=== PATIENT | male | born 1975 | race Caucasian/White ===

== ENCOUNTER 2016-09-17 16:06 | Observation (INO) | payer OTHER ==
[~2016-09-17] VITALS: Ht 180.3 cm; Wt 108.8 kg
[~2016-09-17 16:06] MED LIST: INSUINJ14 SC; INSUINJ4 SC; LPT40 PO; OXYC-609 PO
[2016-09-17] MEDS ORDERED: NITROGLYCERIN OINT 2% 1GM PACKET EXT SCH (16:45)
[2016-09-17 16:47] LABS: BASO % 0.4 %; BASO ABS # 0.03 K/uL (0-0.2); COMPLETE YES; EOS % 2.4 %; IG% 0.6 %; LYMPH % 19.6 %; LYMPH ABS # 1.39 K/uL (1.2-3.4); MEAN CELL VOLUME 88.6 fL (80-100); MEAN CORPUSCULAR HEMOGLOBIN 31.6 pg (25-34); MEAN CORPUSCULAR HGB CONC 35.7 g/dl (32-36); MEAN PLATELET VOLUME 9.2 fL (7.4-10.4); MONO % 6.5 %; NEUT % 70.5 %; PLATELET COUNT 285 K/uL (130-400); RED BLOOD COUNT 3.95 M/uL (4.7-6.1); WHITE BLOOD COUNT 7.09 K/uL (4.8-10.8)
[2016-09-17] MEDS ORDERED: NITROGLYCERIN OINT 2% 1GM PACKET ONE (16:49)
[2016-09-17 17:07] LABS: BLOOD UREA NITROGEN 31 mg/dl (7-18); BUN/CREATININE RATIO 15.5 (10-20); CALCIUM 8.7 mg/dl (8.5-10.1); CARBON DIOXIDE 25 mmol/L (21-32); CHLORIDE 107 mmol/L (98-107); GLUCOSE 142 mg/dl (70-99); POTASSIUM 4.7 mmol/L (3.5-5.1); SODIUM 141 mmol/L (136-145)
[2016-09-17] MEDS ORDERED: ATOR-26 PO (17:08)
[2016-09-17] MEDS ORDERED: FRS/40 PO (17:08)
[2016-09-17] MEDS ORDERED: INSDGIPEN SC (17:08)
[2016-09-17] MEDS ORDERED: NVLGI/PEN SC (17:08)
[2016-09-17] MEDS ORDERED: CHOL1TAB12 PO (17:09)
[2016-09-17 17:12] LABS: CKMB/CK RATIO 1.8 (0-3.0)
[2016-09-17] MEDS ORDERED: LABETALOL HCL IV 5 MG/ML 20ML IV STA ×2 (17:43→18:38)
[2016-09-17] MEDS ORDERED: HYT/2 PO (17:44)
--- NOTE | 2016-09-17 17:45 | DIAGNOSTIC IMAGING REPORT ---
CHEST ONE VIEW PORTABLE HISTORY: Atypical Chest Pain COMPARISON: Chest 02/15/2015. FINDINGS: The lungs are clear. Cardiac silhouette is top normal in size. No pleural effusions. No pneumothorax. IMPRESSION: No acute process. Electronically signed by: Eddie Cantor M.D. 09/17/2016 5:44 PM Dictated Date/Time: 09/17/2016 5:43 PM
[2016-09-17] MEDS ORDERED: NITROGLYCERIN 0.4 MG SL PER TAB CHARGE SL PRN (19:15)
[2016-09-17] MEDS ORDERED: ONDANSETRON INJ 2 MG/ML 2 ML VIAL IV PRN (19:15)
[2016-09-17] MEDS ORDERED: ACETAMINOPHEN 325 MG TAB PO PRN (19:15)
[2016-09-17] MEDS ORDERED: MoRPHine SULFATE 2 MG/ML CARP IV PRN (19:15)
[2016-09-17] MEDS ORDERED: IV FLUIDS COMPLETED PRN (19:30)
[2016-09-17 19:31] LABS: PARTIAL THROMBOPLASTIN RATIO 0.9; PROTHROMBIN TIME (PATIENT) 10.2 SECONDS (9.0-12.0)
[2016-09-17 20:00] VITALS: O2SAT 98
--- NOTE | 2016-09-17 20:03 | History and Physical ---
History & Physical Date & Time of Service: September 17, 2016 at ~ 19:30 . Chief Complaint: chest pain . Primary Care Physician: Higinio Day M.D.(JOE) . History of Present Illness Source: patient, clinic records, hospital records 41 YO male followed by Dr. Day for Family Medicine and Arsenio Ramsay PA-C for Cardiology. History of ischemic heart disease, hypertension, DM type I, CKD, and other problems noted below. Cardiac cath 2001 demonstrated 80% mid-distal LAD lesion, 30% proximal-mid LAD lesion, and 40% lesion in left circumflex. PCI of LAD with drug-eluting stent performed. Recently experiencing dyspnea on exertion. Echo performed in clinic on 08/14/16 demonstrated normal LV wall motion and systolic function, grade II diastolic dysfunction. Lexiscan nuclear stress test on 08/14/16 showed evidence of lateral ischemia. Saw Mr. Ramsay for follow-up on 09/04/16. Patient opted for continued medical management. Developed chest pain today around noon at rest. He was preparing lunch. Had not eaten breakfast today. Chest pain described as midsternal chest pressure, rated 4-5/10. Pain did not radiate. It was associated with sweats, dyspnea, nausea. He took aspirin at home, but no NTG. Came to ED where he received O2, topical NTP, and IV labetalol for elevated BP. Chest pressure improved, essentially resolved by time of my assessment. . Past Medical/Surgical History Chronic and Resolved Medical Problems: (1) Blind left eye Status: Chronic (2) CKD (chronic kidney disease), stage III Status: Chronic (3) Coronary artery disease Status: Chronic (4) Diabetes mellitus type 1 Status: Chronic (5) Dyslipidemia Status: Chronic (6) Gastroesophageal reflux disease Status: Chronic (8) Hypertension Status: Chronic Surgical Problems: (1) Status post cardiac catheterization Status: Chronic (2) Status post coronary artery stent placement Status: Chronic (3) Status post enucleation Permanent Comment: left eye Status: Chronic . 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) Diabetes mellitus Hypertension Stroke AUNT Diabetes mellitus AUNT Diabetes mellitus Social History Smoking Status: Never Smoker Smokeless Tobacco Use: Yes Alcohol Use: none Drug Use: none Marital Status: Housing status: lives with family Occupational Status: disabled Immunizations History of Influenza Vaccine: Yes Influenza Vaccine Date: Apr 10, 2012 History of Tetanus Vaccine?: Yes Tetanus Immunization Date: Nov 08, 2009 History of Pneumococcal: Yes Pneumococcal Date: Nov 08, 2008 History of Hepatitis B Vaccine: No Multi-Drug Resistant Organisms History of MDRO: No Allergies Coded Allergies: Benzonatate (Verified Allergy, Unknown, told not to take, 02/25/15) Ibuprofen (Verified Allergy, Unknown, told not to take, 02/25/15) Home Medications Scheduled Aspirin Enteric Coated (Ecotrin Or Generic), 81 MG PO DAILY Atorvastatin (Lipitor), 80 MG PO HS Carvedilol (Carvedilol), 50 MG PO BID Cholecalciferol (Vitamin D3), 3,000 INTER.UNIT PO HS Clopidogrel Bisulfate (Clopidogrel), 75 MG PO DAILY Furosemide (Furosemide), 40 MG PO DAILY Furosemide (Lasix), 20 MG PO Q2D Hydralazine HCl (Hydralazine HCl), 50 MG PO BID Insulin Aspart (Novolog Flexpen), 1 DOSE SC UD Insulin Glargine (Lantus Solostar), 56 UNITS SC HS Omeprazole (Prilosec), 20 MG PO QAM Terazosin Hcl (Hytrin), 4 MG PO HS Scheduled PRN Nitroglycerin (Nitrostat), 0.4 MG UT UD PRN for Chest Pain Review of Systems Constitutional: No fever, No weight loss Eyes: + problem reported (s/p enucleation left eye) ENT: No nasal symptoms, No sore throat Respiratory: + cough (chronic), + dyspnea on exertion Cardiovascular: + problem reported (as noted in HPI) Abdomen: + nausea, No GI bleeding, No diarrhea, No pain, No vomiting Musculoskeletal: No joint pain, No muscle pain Genitourinary - Male: No dysuria, No hematuria Endocrine: No excessive thirst, No excessive urination, No fatigue Hematologic / Lymphatic: + abnormal bleeding/bruising (bruising) Integumentary: No new/changing skin lesions, No rash Physical Exam Vital Signs Date Time Temp Pulse Resp B/P Pulse Ox O2 Delivery O2 Flow Rate FiO2 09/17/16 19:33 80 14 200/103 99 Room Air 09/17/16 19:19 187/119 09/17/16 19:17 82 14 98 09/17/16 19:02 79 18 156/76 99 Room Air 09/17/16 19:02 82 25 99 09/17/16 18:58 80 19 202/106 98 Room Air 09/17/16 18:56 81 15 185/108 98 Room Air 09/17/16 18:55 97 Room Air 09/17/16 18:53 80 189/116 98 Room Air 09/17/16 18:34 77 16 203/108 99 Room Air 09/17/16 18:08 78 18 205/113 99 Room Air 09/17/16 17:40 86 16 216/125 97 Room Air 09/17/16 16:54 86 16 210/122 97 Room Air 09/17/16 16:29 79 09/17/16 16:17 98 Room Air 09/17/16 16:13 36.4 84 23 160/93 98 Room Air General Appearance: WD/WN, no apparent distress Head: normocephalic, atraumatic Eyes: + pertinent finding (enucleation left eye with ocular prosthesis; left ptosos; right eye- pupil reactive, anicteric) ENT: normal ENT inspection, hearing grossly normal, pharynx normal Neck: supple, no adenopathy, thyroid normal, no JVD, trachea midline Respiratory/Chest: lungs clear, no respiratory distress, no accessory muscle use Cardiovascular: regular rate, rhythm, no edema, no gallop, no JVD, no murmur, normal peripheral pulses (radial and pedal pulses symmetric), + gallop/S4, + pertinent finding (carotids 2/2 bilat) Abdomen/GI: normal bowel sounds, non tender, soft, no organomegaly, no pulsatile mass Extremities/Musculoskelatal: normal inspection, no calf tenderness, normal capillary refill, no pedal edema Neurologic/Psych: 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 as tested (PERRL, EOMI, no facial palsy, no dysarthria), no motor/sensory deficits (motor strength 5/5 bilat), alert, normal mood/affect, normal reflexes, oriented x 3 Skin: normal color, warm/dry, no rash Lymphatic: no adenopathy (cervical) Diagnostics Laboratory Results Results Past 24 Hours Test 09/17/16 16:25 09/17/16 19:19 Range/Units White Blood Count 7.09 4.8-10.8 K/uL Red Blood Count 3.95 4.7-6.1 M/uL Hemoglobin 12.5 14.0-18.0 g/dL Hematocrit 35.0 42-52 % Mean Corpuscular Volume 88.6 80-100 fL Mean Corpuscular Hemoglobin 31.6 25-34 pg Mean Corpuscular Hemoglobin Concent 35.7 32-36 g/dl Platelet Count 285 130-400 K/uL Mean Platelet Volume 9.2 7.4-10.4 fL Neutrophils (%) (Auto) 70.5 % Lymphocytes (%) (Auto) 19.6 % Monocytes (%) (Auto) 6.5 % Eosinophils (%) (Auto) 2.4 % Basophils (%) (Auto) 0.4 % Neutrophils # (Auto) 5.00 1.4-6.5 K/uL Lymphocytes # (Auto) 1.39 1.2-3.4 K/uL Monocytes # (Auto) 0.46 0.11-0.59 K/uL Eosinophils # (Auto) 0.17 0-0.5 K/uL Basophils # (Auto) 0.03 0-0.2 K/uL RDW Standard Deviation 42.4 36.4-46.3 fL RDW Coefficient of Variation 13.1 11.5-14.5 % Immature Granulocyte % (Auto) 0.6 % Immature Granulocyte # (Auto) 0.04 0.00-0.02 K/uL Prothrombin Time 10.2 9.0-12.0 SECONDS Prothromb Time International Ratio 1.0 0.9-1.1 Activated Partial Thromboplast Time 24.5 21.0-31.0 SECONDS Partial Thromboplastin Ratio 0.9 Sodium Level 141 136-145 mmol/L Potassium Level 4.7 3.5-5.1 mmol/L Chloride Level 107 98-107 mmol/L Carbon Dioxide Level 25 21-32 mmol/L Anion Gap 9.0 3-11 mmol/L Blood Urea Nitrogen 31 7-18 mg/dl Creatinine 2.00 0.60-1.40 mg/dl Est Creatinine Clear Calc Drug Dose 60.4 ml/min Estimated GFR () 46.0 Estimated GFR (Non- 39.7 BUN/Creatinine Ratio 15.5 10-20 Random Glucose 142 70-99 mg/dl Calcium Level 8.7 8.5-10.1 mg/dl Total Creatine Kinase 274 39-308 U/L Creatine Kinase MB 5.0 0.5-3.6 ng/ml Creatine Kinase MB Ratio 1.8 0-3.0 Troponin I < 0.015 0-0.045 ng/ml Bedside Glucose 132 70-99 mg/dl Diagnostic Radiology CHEST ONE VIEW PORTABLE FINDINGS: The lungs are clear. Cardiac silhouette is top normal in size. No pleural effusions. No pneumothorax. IMPRESSION: No acute process. Electronically signed by: Eddie Cantor M.D. 09/17/2016 5:44 PM Dictated Date/Time: 09/17/2016 5:43 PM . EKG EKG performed at 16:17 reviewed and demonstrated NSR at 80 / minute, biphasic T- waves aVL. . Impression Assessment and Plan CHEST PAIN Known multivessel CAD per cardiac cath 2010, s/p MIRTA --> LAD. Recent dyspnea on exertion. Recent Lexiscan stress test showed lateral ischemia. Severe chest pain today at rest- may or may not be cardiac in nature. Low clinical suspicion for pulmonary embolism- O2 sats 97-99% on RA, Wells score 0. Consider GI etiology if cardiac workup unrevealing. First set of cardiac markers negative. EKG similar to baseline. Check serial cardiac markers. Continue aspirin, clopidogrel, carvedilol, statin. Add topical NTG. Add IV heparin if more definite evidence of acute coronary event develops. NPO after midnight in case further evaluation necessary. Consult Cardiology. HYPERTENSIVE URGENCY BP elevated in ED. Uncertain whether hypertensive urgency developed before or after onset of CP. Patient reports that recent outpatient BP's have been well-controlled. Continue carvedilol, hydralazine, terazosin. Cannot take FRED's or ARB's due to CKD with history of hyperkalemia. Add NTP. Follow and titrate Rx. CKD III Serum creatinine = 2. Baseline creatinine 2.1 on 07/24/16. Maintain hydration. Follow. DM TYPE I Well-controlled at home. Check Hgb A1C. Continue Lantus + NovoLog. IV with dextrose when NPO. VTE PROPHYLAXIS Moderate risk for VTE. SQ enoxaparin. Ambulate. DISPOSITION Observation status on Telemetry Unit. Expected discharge to home. Family Medicine follow-up with Dr. Day. Cardiology follow-up with Arsenio Ramsay PA-C. . VTE Prophylaxis VTE Risk Assessment Done? Y/N: Yes Risk Level: Low Given or contraindicated: Enoxaparin (Lovenox)SQ
[2016-09-17] MEDS ORDERED: NITROGLYCERIN 0.4 MG SL PER TAB CHARGE UT PRN (20:15)
[2016-09-17] MEDS ORDERED: GLUCAGON FOR INJ 1 MG VIAL SQ PRN (20:15)
[2016-09-17] MEDS ORDERED: DEXTROSE 50% 50 ML SYR IV PRN (20:15)
[2016-09-17] MEDS ORDERED: GLUCOSE 40% GEL 15 GM TUBE PO PRN (20:15)
[2016-09-17] MEDS ORDERED: LABETALOL HCL IV 5 MG/ML 20ML IV PRN (20:15)
[2016-09-17] MEDS ORDERED: GLUCOSE 10 TABS/TUBE PO PRN (20:15)
[2016-09-17 20:24] VITALS: BP 185/99; PULSE 81; TEMP 36.6; O2SAT 98; BMI 33.5
[2016-09-17] MEDS ORDERED: CRG25 PO (20:54)
[2016-09-17] MEDS ORDERED: PLV75 PO (20:54)
[2016-09-17] MEDS ORDERED: OMEP20CA9 PO (20:54)
[2016-09-17] MEDS ORDERED: LSX40 PO (20:54)
[2016-09-17] MEDS ORDERED: APR50 PO (20:54)
[2016-09-17] MEDS ORDERED: ATORVASTATIN 40 MG TAB PO SCH (21:00)
[2016-09-17] MEDS ORDERED: INSULIN GLARGINE SC SCH (21:00)
[2016-09-17] MEDS ORDERED: ENOXAPARIN 40 MG/0.4 ML SYR SC SCH (21:00)
[2016-09-17] MEDS ORDERED: PANTOprazole INJ 40 MG in SYRINGE 0 ML IV ONE (21:00)
[2016-09-17] MEDS ORDERED: ASPI81TA21 PO (21:39)
[2016-09-17] MEDS ORDERED: NITR0.4S UT (21:39)
[2016-09-17] MEDS: CARVEDILOL 25 MG TAB PO SCH (21:41)
[2016-09-17] MEDS: INSULIN ASPART 100 UNITS/ML 3 ML PEN SC SCH (21:44)
--- NOTE | 2016-09-17 22:12 | EMERGENCY ROOM VISIT NOTE ---
History Report prepared by Jacqueline: Severo Flores Under the Supervision of: Dr. Sam Gottlieb D.O. First contact with patient: 16:29 Chief Complaint: CHEST PAIN Stated Complaint: CHEST PAIN History of Present Illness The patient is a 41 year old male who presents to the Emergency Room with complaints of intermittent centralized chest pain beginning 2 hours ago. He has a history of diabetes, kidney disease, and hypertension. He has a left sided cardiac stent in place. The patient states that he had a nuclear stress test about a month ago. He states that he has an artery that is blocked, but not to a point that it would be worth treating due to his kidney problems. He has not taken any Nitroglycerin for his pain today but notes that he has it at home. The patient describes his pain as a feeling of "pressure", "like someone is sitting on my chest". He states that he was sitting and watching TV when his pain began. He states that he has been unable to get comfortable. The patient also complains of SOB. He states that his pain and shortness of breath is worsened with laying down. Pt denies headache, arm pain, jaw pain, change in vision, fevers, nausea, vomiting, diarrhea, pain with urination, and melena. He has a history of GERD and states that his pain feels completely different from his GERD. He is on Plavix. Source of History: patient Onset: 2 hours ago Position: chest (central) Quality: pressure Timing: intermittent Modifying Factors (Worsening): other (laying down) Associated Symptoms: + SOB, No abdominal pain, No chills, No diarrhea, No fevers, No nausea, No urinary symptoms, No vomiting Note: The patient denies any jaw pain or arm pain. Review of Systems See HPI for pertinent positives & negatives. A total of 10 systems reviewed and were otherwise negative. Past Medical & Surgical Medical Problems: (1) Benign hypertension (2) Blind left eye (3) Diabetes mellitus type 1 (4) Gastroesophageal reflux disease (5) Heart disease (6) Placement of stent Family History Diabetes mellitus Social History Smoking Status: Never Smoker Alcohol Use: occasionally Drug Use: none Marital Status: Housing Status: lives with family Occupation Status: disabled Current/Historical Medications Scheduled Aspirin Enteric Coated (Ecotrin Or Generic), 81 MG PO DAILY Atorvastatin (Lipitor), 80 MG PO HS Carvedilol (Carvedilol), 50 MG PO BID Cholecalciferol (Vitamin D3), 3,000 INTER.UNIT PO HS Clopidogrel Bisulfate (Clopidogrel), 75 MG PO DAILY Furosemide (Furosemide), 40 MG PO DAILY Furosemide (Lasix), 20 MG PO Q2D Hydralazine HCl (Hydralazine HCl), 50 MG PO BID Insulin Aspart (Novolog Flexpen), 1 DOSE SC UD Insulin Glargine (Lantus Solostar), 56 UNITS SC HS Omeprazole (Prilosec), 20 MG PO QAM Terazosin Hcl (Hytrin), 4 MG PO HS Scheduled PRN Nitroglycerin (Nitrostat), 0.4 MG UT UD PRN for Chest Pain Allergies Coded Allergies: Benzonatate (Verified Allergy, Unknown, told not to take, 02/25/15) Ibuprofen (Verified Allergy, Unknown, told not to take, 02/25/15) Physical Exam Vital Signs Date Time Temp Pulse Resp B/P Pulse Ox O2 Delivery O2 Flow Rate FiO2 09/17/16 19:19 187/119 09/17/16 19:17 82 14 98 09/17/16 19:02 79 18 156/76 99 Room Air 09/17/16 19:02 82 25 99 09/17/16 18:58 80 19 202/106 98 Room Air 09/17/16 18:56 81 15 185/108 98 Room Air 09/17/16 18:55 97 Room Air 09/17/16 18:53 80 189/116 98 Room Air 09/17/16 18:34 77 16 203/108 99 Room Air 09/17/16 18:08 78 18 205/113 99 Room Air 09/17/16 17:40 86 16 216/125 97 Room Air 09/17/16 16:54 86 16 210/122 97 Room Air 09/17/16 16:29 79 09/17/16 16:17 98 Room Air 09/17/16 16:13 36.4 84 23 160/93 98 Room Air Physical Exam GENERAL: Sitting up in bed, alert, well appearing, well nourished, no distress, non-toxic EYE EXAM: normal conjunctiva OROPHARYNX: no exudate, no erythema, lips, buccal mucosa, and tongue normal and mucous membranes are moist NECK: supple, no nuchal rigidity, no adenopathy, non-tender LUNGS: Clear to auscultation. Normal chest wall mechanics HEART: no murmurs, S1 normal and S2 normal ABDOMEN: abdomen soft, non-tender, normo-active bowel sounds, no masses, no rebound or guarding. BACK: Back is symmetrical on inspection and there is no deformity, no midline tenderness, no CVA tenderness. SKIN: no rashes and no bruising UPPER EXTREMITIES: upper extremities are grossly normal. Radial pulses are equal bilaterally. LOWER EXTREMITIES: No pitting edema. NEURO EXAM: Normal sensorium, cranial nerves II-XII grossly intact, normal speech, no gross weakness of arms, no gross weakness of legs. Medical Decision & Procedures ER Provider Diagnostic Interpretation: Radiology results as stated below per my review and the radiologist's interpretation: CHEST ONE VIEW PORTABLE FINDINGS: The lungs are clear. Cardiac silhouette is top normal in size. No pleural effusions. No pneumothorax. IMPRESSION: No acute process. Electronically signed by: Eddie Cantor M.D. Laboratory Results 09/17/16 16:25 Red Blood Count 3.95, Mean Corpuscular Volume 88.6, Mean Corpuscular Hemoglobin 31.6, Mean Corpuscular Hemoglobin Concent 35.7, Mean Platelet Volume 9.2, Neutrophils (%) (Auto) 70.5, Lymphocytes (%) (Auto) 19.6, Monocytes (%) (Auto) 6.5, Eosinophils (%) (Auto) 2.4, Basophils (%) (Auto) 0.4, Neutrophils # (Auto) 5.00, Lymphocytes # (Auto) 1.39, Monocytes # (Auto) 0.46, Eosinophils # (Auto) 0.17, Basophils # (Auto) 0.03 09/17/16 16:25 Test 09/17/16 16:25 White Blood Count 7.09 K/uL (4.8-10.8) Red Blood Count 3.95 M/uL (4.7-6.1) Hemoglobin 12.5 g/dL (14.0-18.0) Hematocrit 35.0 % (42-52) Mean Corpuscular Volume 88.6 fL (80-100) Mean Corpuscular Hemoglobin 31.6 pg (25-34) Mean Corpuscular Hemoglobin Concent 35.7 g/dl (32-36) Platelet Count 285 K/uL (130-400) Mean Platelet Volume 9.2 fL (7.4-10.4) Neutrophils (%) (Auto) 70.5 % Lymphocytes (%) (Auto) 19.6 % Monocytes (%) (Auto) 6.5 % Eosinophils (%) (Auto) 2.4 % Basophils (%) (Auto) 0.4 % Neutrophils # (Auto) 5.00 K/uL (1.4-6.5) Lymphocytes # (Auto) 1.39 K/uL (1.2-3.4) Monocytes # (Auto) 0.46 K/uL (0.11-0.59) Eosinophils # (Auto) 0.17 K/uL (0-0.5) Basophils # (Auto) 0.03 K/uL (0-0.2) RDW Standard Deviation 42.4 fL (36.4-46.3) RDW Coefficient of Variation 13.1 % (11.5-14.5) Immature Granulocyte % (Auto) 0.6 % Immature Granulocyte # (Auto) 0.04 K/uL (0.00-0.02) Prothrombin Time 10.2 SECONDS (9.0-12.0) Prothromb Time International Ratio 1.0 (0.9-1.1) Activated Partial Thromboplast Time 24.5 SECONDS (21.0-31.0) Partial Thromboplastin Ratio 0.9 Anion Gap 9.0 mmol/L (3-11) Est Creatinine Clear Calc Drug Dose 60.4 ml/min Estimated GFR () 46.0 Estimated GFR (Non- 39.7 BUN/Creatinine Ratio 15.5 (10-20) Calcium Level 8.7 mg/dl (8.5-10.1) Total Creatine Kinase 274 U/L (39-308) Creatine Kinase MB 5.0 ng/ml (0.5-3.6) Creatine Kinase MB Ratio 1.8 (0-3.0) Troponin I < 0.015 ng/ml (0-0.045) Medications Administered Medications (Trade) Dose Ordered Sig/Solitario Route Start Time Stop Time Status Last Admin Dose Admin Nitroglycerin (Nitroglycerin 2% Oint) 2 inch STK-MED ONCE .ROUTE 09/17/16 16:49 09/17/16 16:50 DC 09/17/16 16:54 2 INCH Labetalol HCl (Normodyne IV) 20 mg NOW STAT IV 09/17/16 17:43 09/17/16 17:45 DC 09/17/16 17:57 20 MG Labetalol HCl (Normodyne IV) 20 mg NOW STAT IV 09/17/16 18:38 09/17/16 18:39 DC 09/17/16 18:52 20 MG ECG Indication: chest pain Rate (beats per minute): 82 Rhythm: sinus rhythm Findings: Q waves (Septal), other (LAD) Comparison ECG Date: February 15, 2015 Change: no significant change ED Course ED COURSE: Vital signs were reviewed and showed hypertension The patients medical record was reviewed The above diagnostic studies were performed and reviewed. ED treatments and interventions as stated above. 1630: The patient was evaluated in room A12B. A complete history and physical examination was performed. 1645: Ordered Nitroglycerin 2% Oint 2 inch EXT. 1743: Ordered Normodyne IV 20 mg IV. 183: Ordered Normodyne IV 20 mg IV. 1900: Upon reevaluation, the patient is resting comfortably. I discussed my findings with the patient and he understands and agrees with the treatment plan. Based on the patients age, coexisting illnesses, exam and lab findings the decision to treat as an inpatient was made. The patient remained stable while under my care. The patient will be evaluated for further management. Medical Decision Differential diagnoses includes but is not limited to acute coronary syndrome, myocardial infarction, pericarditis, pulmonary embolus, aortic dissection, pneumonia, pneumothorax, musculoskeletal, shingles, esophageal. Patient is a 41-year-old male who presents the ER for chest pain associated with shortness of breath that started 2 hours ago. He has a past medical history of diabetes, hypertension and a previous stents placed. He does take Plavix. Nuclear stress 2 weeks ago showed some kind of inducible ischemia per report as by the patient. As he was unremarkable. BMP is remarkable for a creatinine of 2 which is increased off of his baseline of 1.5-1.9. Troponin was negative. EKG was unremarkable. Chest x-ray was unremarkable. Radial pulses were equal. No pain in the back. Systolic blood pressures were 240 upon presentation. He was given Nitropaste and 2 separate doses of labetalol 20 mg IV with improvement of his systolic pressures into the 180s. Patient had previously taken 3 doses of 81 mg of aspirin. He was admitted to internal medicine for chest pain rule out. Consults Time Called: 1829 Consulting Physician: Dr. Joycelyn Calderón Returned Call: 1900 I reviewed the patient's case with Dr. Hirsch. Mery will evaluate the patient for further management. Impression Primary Impression: Hypertensive emergency Additional Impression: Precordial chest pain Critical Care I have personally spent 35 minutes of critical care time in the direct management of this patient. This includes bedside care, interpretation of diagnostic studies, and testing, discussion with consultants, patient, and family members, and other required patient management activities. This 35 minutes is in excess of all separately billable procedures. Scribe Attestation The scribe's documentation has been prepared under my direction and personally reviewed by me in its entirety. I confirm that the note above accurately reflects all work, treatment, procedures, and medical decision making performed by me. Departure Information Dispostion Being Evaluated By Hospitalist Referrals Higinio Day M.D.([facility]) (PCP) Patient Instructions My [facility] Problem Qualifiers
[2016-09-17] MEDS: NITROGLYCERIN 2% OINTMENT 30GM TUBE EXT SCH (23:15)
[2016-09-17 23:50] VITALS: BP 167/85; PULSE 84; TEMP 36.4; O2SAT 98
[2016-09-18] VITALS (9 sets, daily range): BP systolic 109–197; BP diastolic 69–105; PULSE 77–84; TEMP 36.5–36.9; O2SAT 97–99; Ht 180.3 cm; Wt 108.8 kg
[2016-09-18] MEDS ORDERED: NITROGLYCERIN OINT 2% 1GM PACKET EXT SCH
[2016-09-18 01:45] LABS: CKMB/CK RATIO 1.8 (0-3.0)
[2016-09-18] MEDS: CLONIDINE HCL 0.1 MG TAB PO PRN ×2 (05:11→09:07)
[2016-09-18] MEDS: NITROGLYCERIN 2% OINTMENT 30GM TUBE EXT SCH (05:13)
[2016-09-18] MEDS ORDERED: D5W AND 1/2NSS 1,000 ML IV SCH (06:00)
[2016-09-18 06:37] LABS: BUN/CREATININE RATIO 16.2 (10-20); CALCIUM 8.3 mg/dl (8.5-10.1); POTASSIUM 4.2 mmol/L (3.5-5.1)
[2016-09-18 06:43] LABS: CHOLESTEROL/HDL RATIO 2.4; CKMB/CK RATIO 1.5 (0-3.0)
[2016-09-18] MEDS: INSULIN ASPART 100 UNITS/ML 3 ML PEN SC SCH ×3 (07:00→16:15)
[2016-09-18 07:26] LABS: ESTIMATED AVERAGE GLUCOSE 189 mg/dl; HA1C FLAG Normal (Normal)
[2016-09-18] MEDS: CARVEDILOL 25 MG TAB PO SCH (07:47)
[2016-09-18] MEDS ORDERED: PANTOprazole SOD 40 MG TAB PO SCH (09:00)
[2016-09-18] MEDS ORDERED: FUROSEMIDE 20 MG TAB PO SCH (09:00)
[2016-09-18] MEDS ORDERED: CLOPIDOGREL BISULFATE 75 MG TAB PO SCH (09:00)
[2016-09-18] MEDS ORDERED: ASPIRIN 81 MG ECTAB PO SCH (09:00)
[2016-09-18] MEDS ORDERED: FUROSEMIDE 40 MG TAB PO SCH (09:00)
--- NOTE | 2016-09-18 10:32 | Cardiology Consultation ---
Cardiology Consultation Date of Service September 18, 2016. (Marline Tovar PA-C) Cardiology Consultation History of Present Illness: Mr. Gerard is a complex 41 year old male, who follows with Zoila Ramsay PA-C as an outpatient for routine cardiac care. 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 Due to mildly abnormal EKG in the outpatient setting and ongoing dyspnea, he underwent nuclear stress testing in July 2016 which revealed lateral wall ischemia. Options discussed with patient/ at that time for continued med management vs cardiac catheterization. Patient opted for medical management given risk of renal failure with cardiac cath. He states he was sitting in his recliner yesterday morning and developed substernal chest tightness, no radiation. [place] it was difficult to take a deep breath. [place] nauseous with the discomfort. Symptoms lasted approx 1 hour and came to ER for evaluation. States he took all meds that morning. Found his BP to be significantly elevated in ER. Started on nitro paste with IV labetalol and PRN clonidine. CP resolved when BP improved < 200. EKG was non ischemic. Cardiac enzymes unremarkable. At time of consult, patient feeling well. Hoping to go home today. BP improved, but he received PRN clonidine and still wearing nitro ointment this AM. No recurrent chest pain or SOB. No dizziness. No palpitations. No orthopnea, PND or edema. He was NPO for further cardiac testing and having hypoglycemic episodes this AM. NPO cancelled Review of Systems: See HPI for pertinent positives. All other 10 point review of systems is negative. 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 4.Status post PCI of the LAD with an Zience 2.5mm x 12 mm MIRTA. 5.Moderate carotid occlusive disease 6.Longstanding labile hypertension 7.Dyslipidemia with an optimal LDL goal of < 70 mg/dL 8.Pituitary disorder 9.GERD 10.Impotence 11.Chart history of cough variant asthma. Surgical History: CATHETERIZE LEFT HEART THRU SKIN 05/27/2010 COLONOSCOPY 2002 COLONOSCOPY 2002 DENTAL SURGERY PROCEDURE NEC ESOPHAGRAM W/OUT VIDEO 2007 INJECTION OF EYE DRUG LASER TRABECULOPLASTY 2009 LUMBAR HEMILAMINECTOMY 2014 LAMINOTOMY DECOMPRESSION NERVE ROOT LUMBAR performed by Mina Ansari DO at OR [facility] PARTIAL REMOVAL OF EYE FLUID 2011 REMOVE EYE, INSERT IMPLANT 2012 REPAIR DETACHED RETINA, COMPLEX 2010 REPAIR DETACHED RETINA, COMPLEX 2011 TREATMENT OF EXTENSIVE RETINOPATHY, PHOTOCOAGULATION Family History: Mother is with T2DM and a prior CVA. Father with dyslipidemia. Brothers: healthy Social History: No cigarettes. Chews since 18 years of age. Six pack of alcohol per week. to [place]. 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 Patient Active Problem List Esophageal reflux Type 1 diabetes mellitus with hemoglobin A1c goal of less than 8.0% (HCC) Abnormal results of liver function studies Dyslipidemia, goal LDL below 70 Other disorders of the pituitary and other syndromes of diencephalohypophyseal origin DM type 1 causing renal disease, not at goal (HCC) Traction detachment of retina DM type 1 causing eye disease (HCC) Rubeosis iridis Retinal edema Vitreous hemorrhage (HCC) Proteinuria ENRIKE inhibitor intolerance HTN, goal below 130/80 DM type 1 causing eye disease (HCC) Proliferative retinopathy due to secondary diabetes (HCC) Atherosclerosis of [place] coronary artery without angina pectoris Lumbar radiculitis HNP (herniated nucleus pulposus), lumbar S/P lumbar microdiscectomy Kidney disease, chronic, stage III (GFR 30-59 ml/min) Review of patient's allergies indicates: Enrike Inhibitors - hyperkalemia Angiotensin Receptor Blockers - hyperkalemia Benzonatate - Rash Ibuprofen [Ibuprofen] -On ASA for CAD. Ibuprofen contraindicated. Reported Home Medications Medications Dose Route/Sig Max Daily Dose Days Date Category Dose Instructions Vitamin D3 (Cholecalciferol) 3,000 Unit Tab 3,000 Inter.unit PO HS 09/17/16 Reported Novolog Flexpen (Insulin Aspart) 100 Units/Ml Inj 1 Dose SC UD 09/17/16 Reported COVERAGE DIRECTED BY SLIDING SCALE Lantus Solostar (Insulin Glargine) 100 Unit/Ml Inj 56 Units SC HS 09/17/16 Reported Lasix (Furosemide) 40 Mg Tab 20 Mg PO Q2D 09/17/16 Reported Lipitor (Atorvastatin Calcium) 80 Mg Tab 80 Mg PO HS 09/17/16 Reported Furosemide 40 Mg Tab 40 Mg PO DAILY 10/29/15 Reported Clopidogrel (Clopidogrel Bisulfate) 75 Mg Tab 75 Mg PO DAILY 02/25/15 Reported Prilosec (Omeprazole) 20 Mg Cap 20 Mg PO QAM 02/25/15 Reported Carvedilol 25 Mg Tab 50 Mg PO BID 02/25/15 Reported Hydralazine HCl 50 Mg Tab 50 Mg PO BID 02/25/15 Reported Hytrin (Terazosin HCl) 2 Mg Cap 4 Mg PO HS 05/21/13 Reported Ecotrin Or Generic (Aspirin) 81 Mg Tab 81 Mg PO DAILY 05/12/12 Reported Nitrostat (Nitroglycerin) 0.4 Mg Sub 0.4 Mg UT UD PRN 05/12/12 Reported OBJECTIVE/PHYSICAL EXAMINATION: Last 8 Hrs Date Time Temp Pulse Resp B/P Pulse Ox O2 Delivery O2 Flow Rate FiO2 09/18/16 09:20 80 111/69 112/72 09/18/16 08:21 36.6 77 20 190/99 97 Room Air 192/105 09/18/16 08:00 Room Air 09/18/16 04:00 Room Air 09/18/16 03:40 36.7 84 18 197/102 98 Room Air 197/100 General: A&Ox3. NAD. HEENT: Normocephalic. 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 No overt JVD. Heart: Regular S1 and S2 noted. No murmurs. Lungs: Clear to auscultation. Abdomen: +BS. Soft. Extremities: No edema. No clubbing, cyanosis. Pulses: radial=2/4, posterior tibial=2/4 on the right and 1/4 on the left. Data: EKG on admission: Normal sinus rhythm Normal ECG When compared with ECG of 15-FEB-2015 10:13, Premature ventricular complexes are no longer Present Repeat EKG this AM, 09/18/16 Normal sinus rhythm Normal ECG When compared with ECG of 17-SEP-2016 16:17, (unconfirmed) No significant change was found August 14, 2016 Lexiscan Nuclear Stress Test Interpretation Summary (as per Dr. Wilkerson): Abnormal Lexiscan nuclear stress test suggesting base and mid lateral wall ischemia. Gated SPECT images reveals normal myocardial thickening and wall motion. The LV ejection fraction is calculated at 62%. Compared to prior study: Lateral ischemia is now present. August 14, 2016 TTE Interpretation Summary (as per Dr. Wilkerson): The qualitative LV ejection fraction is 60-64%(normal). The left ventricular wall motion is normal. The left ventricular diastolic function is moderately abnormal (grade II). The left atrium is mildly enlarged. No significant valvular disease is present. Compared to prior study of 05/26/2011, there is no significant change. IMPRESSION and PLAN: Complex 41-year-old male 1. Chest pain, likely secondary to hypertensive urgency -normal cardiac enzymes x3 -non ischemic EKG x2 -Chest pain improved with treatment of elevated BP 2. Labile hypertension -BP improved, now with borderline hypotension given use of PRN medications. -continue home carvedilol, hydralazine, hytrin, furosemide -D/C nitro ointment and PRN clonidine -Consider adding isosorbide 30 mg daily if needed -No ENRIKE/ARB 3. CAD - preserved LV function per echo in 07/2015 -mild lateral ischemia noted on recent nuclear stress test -medical management preferred by patient unless refractory symptoms despite optimal medical thearpies -high risk of renal failure and need of dialysis if cardiac catheterization is completed -continue ASA, plavix, beta bibiana, statin 4. CKD - avoid nephrotoxins Case discussed with Dr. Fried Will follow. (Marline Tovar PA-C) Cardiology attending: Pt seen adn examined, agree with findings and assessment as per Marline Moses. Episode appears to be secondary to hypertensive urgency with no objective sign of ischemia despite underlying CAD. BP now relatively low after receiving prn clonidine this AM. Do not believe this med to be the best choice for him as an outpatient. Instead he would benefit from the addition of long acting nitroglycerin to his current hydralazine. Does not appear that we will be able to start this AM given residual effects of clonidine, will start in the AM tomorrow. Pt requesting to be discharged today. So will start imdur 30mg daily as an outpatient tomorrow. Will then need close f/u as an outpatient either in cardiology office or PCP office, who is available. Cont all other previous cardiac meds. (Craig Fried, Mervin.O.)
--- NOTE | 2016-09-18 11:04 | Progress Note ---
Internal Med Progress Note Date of Service: September 18, 2016. Provider Documentation: SUBJECTIVE: Patient is feeling better and no chest pain since admitted. Denies any SOB, cough, leg swelling, fever, chills, SOB, Palpitations, sweating Eager to be discharged OBJECTIVE: Vital Signs-as noted below Exam: General-AAOX3, no distress, obese Neck-Supple, No JVD Lungs-AEBE , no wheezing Heart-S1, S2 normal, no murmurs Extremities-No edema Lab data as noted below. Data: EKG on admission: Normal sinus rhythm Normal ECG When compared with ECG of 15-FEB-2015 10:13, Premature ventricular complexes are no longer Present Repeat EKG this AM, 09/18/16 Normal sinus rhythm Normal ECG When compared with ECG of 17-SEP-2016 16:17, (unconfirmed) No significant change was found August 14, 2016 Lexiscan Nuclear Stress Test Interpretation Summary (as per Dr. Wilkerson): Abnormal Lexiscan nuclear stress test suggesting base and mid lateral wall ischemia. Gated SPECT images reveals normal myocardial thickening and wall motion. The LV ejection fraction is calculated at 62%. Compared to prior study: Lateral ischemia is now present. August 14, 2016 TTE Interpretation Summary (as per Dr. Wilkerson): The qualitative LV ejection fraction is 60-64%(normal). The left ventricular wall motion is normal. The left ventricular diastolic function is moderately abnormal (grade II). The left atrium is mildly enlarged. No significant valvular disease is present. Compared to prior study of 05/26/2011, there is no significant change. ASSESSMENT & PLAN: IMPRESSION and PLAN: Complex 41-year-old male with hx of CAD with stent, last cardiac cath in 2010, recent abnormal nuclear scan for lateral wall ischemia 2 weeks ago, decided to medically manage given the risk of worsening of CKD, comes to ER with an episode of chest pain lasting for 1 hour. In ED, was noted to have high BP 200s. CHEST PAIN, Likely secondary to Hypertensive urgency -Risk factors: Multiple- CAD with complex hx, DM with complications, Recent nuclear scan 2 weeks ago- mild lateral ischemia. Medical management preferred by patient unless refractory symptoms despite optimal medical therapies given high risk of renal failure and need of dialysis if cardiac catheterization is completed -continue ASA, plavix, beta bibiana, statin -Work up- EKG x 2 - non ischemic, Trop x 3 negative; Echo 4/16- preserved EF -Cardiology on board- Likely pain secondary to HTN urgency. No further intervention per cardiology. If BP stabilizes, clears for discharge to home. HYPERTENSIVE URGENCY Labile HTN --BP improved, now with borderline hypotension given use of PRN medications. -continue home carvedilol, hydralazine, hytrin, furosemide -D/C nitro ointment and PRN clonidine -Consider adding isosorbide 30 mg daily if needed- per cardiology -No FRED/ARB CKD 3- Baseline around 2.0, near baseline -IVF - okay to discontinue - avoid nephrotoxins DM TYPE I WITH HYPOGLYCEMIC EPISODES Uncontrolled -Hgb A1C0= 8.6. -Hold Lantus. Continue with NovoLog. -Pharmacy consult placed VTE PROPHYLAXIS Moderate risk for VTE. SQ enoxaparin. Ambulate. DISPOSITION Observation status on Telemetry Unit. Expected discharge to home. Family Medicine follow-up with Dr. Day. Cardiology follow-up with Arsenio Ramsay PA-C Eager to be discharged Vital Signs: Date Time Temp Pulse Resp B/P Pulse Ox O2 Delivery O2 Flow Rate FiO2 09/18/16 09:20 80 111/69 112/72 09/18/16 08:21 36.6 77 20 190/99 97 Room Air 192/105 09/18/16 08:00 Room Air 09/18/16 04:00 Room Air 09/18/16 03:40 36.7 84 18 197/102 98 Room Air 197/100 09/17/16 23:59 Room Air 09/17/16 23:50 36.4 84 18 167/85 98 Room Air 09/17/16 20:24 36.6 81 18 185/99 98 Room Air 09/17/16 20:00 98 Room Air 09/17/16 19:33 80 14 200/103 99 Room Air 09/17/16 19:19 187/119 09/17/16 19:17 82 14 98 09/17/16 19:02 79 18 156/76 99 Room Air 09/17/16 19:02 82 25 99 09/17/16 18:58 80 19 202/106 98 Room Air 09/17/16 18:56 81 15 185/108 98 Room Air 09/17/16 18:55 97 Room Air 09/17/16 18:53 80 189/116 98 Room Air 09/17/16 18:34 77 16 203/108 99 Room Air 09/17/16 18:08 78 18 205/113 99 Room Air 09/17/16 17:40 86 16 216/125 97 Room Air 09/17/16 16:54 86 16 210/122 97 Room Air 09/17/16 16:29 79 09/17/16 16:17 98 Room Air 09/17/16 16:13 36.4 84 23 160/93 98 Room Air Lab Results: Results Past 24 Hours Test 09/17/16 16:25 09/17/16 19:19 09/17/16 20:27 09/18/16 01:16 Range/Units White Blood Count 7.09 4.8-10.8 K/uL Red Blood Count 3.95 4.7-6.1 M/uL Hemoglobin 12.5 14.0-18.0 g/dL Hematocrit 35.0 42-52 % Mean Corpuscular Volume 88.6 80-100 fL Mean Corpuscular Hemoglobin 31.6 25-34 pg Mean Corpuscular Hemoglobin Concent 35.7 32-36 g/dl Platelet Count 285 130-400 K/uL Mean Platelet Volume 9.2 7.4-10.4 fL Neutrophils (%) (Auto) 70.5 % Lymphocytes (%) (Auto) 19.6 % Monocytes (%) (Auto) 6.5 % Eosinophils (%) (Auto) 2.4 % Basophils (%) (Auto) 0.4 % Neutrophils # (Auto) 5.00 1.4-6.5 K/uL Lymphocytes # (Auto) 1.39 1.2-3.4 K/uL Monocytes # (Auto) 0.46 0.11-0.59 K/uL Eosinophils # (Auto) 0.17 0-0.5 K/uL Basophils # (Auto) 0.03 0-0.2 K/uL RDW Standard Deviation 42.4 36.4-46.3 fL RDW Coefficient of Variation 13.1 11.5-14.5 % Immature Granulocyte % (Auto) 0.6 % Immature Granulocyte # (Auto) 0.04 0.00-0.02 K/uL Prothrombin Time 10.2 9.0-12.0 SECONDS Prothromb Time International Ratio 1.0 0.9-1.1 Activated Partial Thromboplast Time 24.5 21.0-31.0 SECONDS Partial Thromboplastin Ratio 0.9 Sodium Level 141 136-145 mmol/L Potassium Level 4.7 3.5-5.1 mmol/L Chloride Level 107 98-107 mmol/L Carbon Dioxide Level 25 21-32 mmol/L Anion Gap 9.0 3-11 mmol/L Blood Urea Nitrogen 31 7-18 mg/dl Creatinine 2.00 0.60-1.40 mg/dl Est Creatinine Clear Calc Drug Dose 60.4 ml/min Estimated GFR () 46.0 Estimated GFR (Non- 39.7 BUN/Creatinine Ratio 15.5 10-20 Random Glucose 142 70-99 mg/dl Calcium Level 8.7 8.5-10.1 mg/dl Total Creatine Kinase 274 190 39-308 U/L Creatine Kinase MB 5.0 3.4 0.5-3.6 ng/ml Creatine Kinase MB Ratio 1.8 1.8 0-3.0 Troponin I < 0.015 < 0.015 0-0.045 ng/ml Bedside Glucose 132 118 70-99 mg/dl Test 09/18/16 04:04 09/18/16 04:29 09/18/16 05:10 09/18/16 06:40 Range/Units Bedside Glucose 64 97 86 70-99 mg/dl Sodium Level 143 136-145 mmol/L Potassium Level 4.2 3.5-5.1 mmol/L Chloride Level 108 98-107 mmol/L Carbon Dioxide Level 28 21-32 mmol/L Anion Gap 7.0 3-11 mmol/L Blood Urea Nitrogen 32 7-18 mg/dl Creatinine 2.00 0.60-1.40 mg/dl Est Creatinine Clear Calc Drug Dose 59.7 ml/min Estimated GFR () 46.0 Estimated GFR (Non- 39.7 BUN/Creatinine Ratio 16.2 10-20 Random Glucose 88 70-99 mg/dl Estimated Average Glucose 189 mg/dl Hemoglobin A1c 8.2 4.5-5.6 % Calcium Level 8.3 8.5-10.1 mg/dl Total Creatine Kinase 177 39-308 U/L Creatine Kinase MB 2.7 0.5-3.6 ng/ml Creatine Kinase MB Ratio 1.5 0-3.0 Troponin I 0.016 0-0.045 ng/ml Triglycerides Level 158 0-150 mg/dl Cholesterol Level 158 0-200 mg/dl HDL Cholesterol 66 mg/dl LDL Cholesterol, Calculated 60 mg/dl VLDL Cholesterol, Calculated 32 mg/dl Cholesterol/HDL Ratio 2.4 Test 09/18/16 10:01 09/18/16 10:22 Range/Units Bedside Glucose 68 84 70-99 mg/dl
[2016-09-18] MEDS ORDERED: PHARMACY GLYCEMIC MGMT CONSULT PRN (11:06)
[2016-09-18] MEDS ORDERED: NURSING VERBAL MED ORDER ONE (13:45)
[2016-09-18] MEDS ORDERED: ISOSORBIDE MONONITRATE 60 MG TABCR PO ONE (14:00)
--- NOTE | 2016-09-18 14:45 | Pharmacy Progress Note ---
Glycemic Control Intl Consult Date of Service September 18, 2016. Scope Glycemic Pharmacist consulted by Dr Samuels on 09/18/16 for glycemic control and to write orders per [facility] inpatient glycemic control protocol Objective Weight (Kilograms): 108.800 Accuchecks BSG (last 24hrs): Test 09/17/16 16:25 09/17/16 19:19 09/17/16 20:27 09/18/16 04:04 Random Glucose 142 mg/dl (70-99) Bedside Glucose 132 mg/dl (70-99) 118 mg/dl (70-99) 64 mg/dl (70-99) Test 09/18/16 04:29 09/18/16 05:10 09/18/16 06:40 09/18/16 10:01 Bedside Glucose 97 mg/dl (70-99) 86 mg/dl (70-99) 68 mg/dl (70-99) Random Glucose 88 mg/dl (70-99) Test 09/18/16 10:22 09/18/16 11:41 Bedside Glucose 84 mg/dl (70-99) 112 mg/dl (70-99) Laboratory Data (last 24hrs) Test 09/17/16 16:25 09/18/16 05:10 Anion Gap 9.0 mmol/L 7.0 mmol/L BUN/Creatinine Ratio 15.5 16.2 Blood Urea Nitrogen 31 mg/dl 32 mg/dl Creatinine 2.00 mg/dl 2.00 mg/dl Potassium Level 4.7 mmol/L 4.2 mmol/L Sodium Level 141 mmol/L 143 mmol/L White Blood Count 7.09 K/uL Red Blood Count 3.95 M/uL Hemoglobin 12.5 g/dL Hematocrit 35.0 % Mean Corpuscular Volume 88.6 fL Mean Corpuscular Hemoglobin 31.6 pg Mean Corpuscular Hemoglobin Concent 35.7 g/dl Platelet Count 285 K/uL Mean Platelet Volume 9.2 fL Neutrophils (%) (Auto) 70.5 % Lymphocytes (%) (Auto) 19.6 % Monocytes (%) (Auto) 6.5 % Eosinophils (%) (Auto) 2.4 % Basophils (%) (Auto) 0.4 % Neutrophils # (Auto) 5.00 K/uL Lymphocytes # (Auto) 1.39 K/uL Monocytes # (Auto) 0.46 K/uL Eosinophils # (Auto) 0.17 K/uL Basophils # (Auto) 0.03 K/uL Hemoglobin A1c 8.2 % HbA1c Test 09/18/16 05:10 Hemoglobin A1c 8.2 % (4.5-5.6) H Recent Pertinent Medications Outpatient Anti-diabetic Regimen: * per patient he states he takes Lantus 56 units qHS plus Novolog 0-12 units with meals (unsure of exact scale) The patient is currently receiving: * Basal insulin: Lantus 56 units every 24 hours at bedtime * Correctional Insulin: Novolog Correction per scale ACHS Goal Range: Low 100 mg/dL - High 160 mg/dL Correction Factor: 50 mg/dL/unit * Prandial insulin: Per carb ratio of 1 unit per 30 grams CHO consumed Risk Factors for Insulin Resistance: * IVF: D51/2NS @100 cc/hr * Diet: type 2 diabetic diet Assessment & Plan ASSESSMENT: * ADA & AACE recommend a goal blood sugar range 140-180 mg/dl for the majority of critically ill & non-critically ill patients. However, more stringent targets may be selected in individual cases. Will utilize more stringent goal of 110-140mg/dl based on patient age & comorbidities. Patient is a young recorded type 1 diabetic who I think benefits from tighter glycemic control to stop further microvascular and macrovascular co-morbidities. * Mr Gerard is a 41 y/o M with recorded type 1 diabetes. He was admitted yesterday for chest pain and kept NPO. He did not eat yesterday or today until noon. He received his home dose of Lantus 56 units x 1 and this resulted in several hypoglycemic episodes this morning. Upon converasation with the patient , he states that he is hypoglycemic because he was NPO. * He states the above regimen is accurate. He has a low blood sugar about once a month. This regimen has been the same for approximately 5 years. He is around 100 mg/dL in the morning and his blood sugars do not really go about 160 mg/dL. * There is concern that this regimen is not accurate.....if the patient is truly a type 1 diabetic then 0.5 units/kg of basal bolus is a very aggressive regimen. There is concern that he will have another low tomorrow morning if a regimen of this type is continued. I have started a regimen at 50% of the dose due to this concern. In case the patient does require this amount of insulin, overnight accuchecks are added. Additionally, more Lantus can be given tomorrow morning. A correctional scale between weight based stress of 1 and 2 has been started. * PLAN FOR INPATIENT GLYCEMIC CONTROL: * Basal insulin with LANTUS 25 units SQ qHS * Correctional Insulin with NOVOLOG per scale ACHS * Goal Range: Low 110 mg/dL - High 140 mg/dL * Correction Factor: 30 mg/dL/unit * Nutritional / Prandial insulin per carb ratio of 1 unit per 10 grams CHO consumed * Please note that the plan above was derived based on current level of insulin resistance and hospital stress. These recommendations are appropriate for inpatient admission only. Plan of care upon discharge will need to be reassessed to avoid potential outpatient hypo/hyperglycemia. Thank you.
[2016-09-18] MEDS ORDERED: INSDGIPEN SC (17:33)
[2016-09-18] MEDS ORDERED: IMDSR60 PO (17:33)
--- NOTE | 2016-09-18 17:38 | Discharge Instructions ---
Discharge Instructions Date of Service September 18, 2016. Admission Reason for Admission: Chest Pain; Hypertensive Urgency Discharge Discharge Diagnosis / Problem: 1. Hypertensive urgency 2. Chest pain, acute Myocardial infarctio ruled out Discharge Goals Goal(s): Therapeutic intervention, Prevent Disease Progression Activity Recommendations Activity Limitations: resume your previous activity . Instructions / Follow-Up Instructions / Follow-Up MEDICATION CHANGES: 1. New medication : Imdur 60 mg daily 2. Decrease Insulin to 40 units daily as your blood sugar did drop down on the current treatment FOLLOW UP 1. Follow up with Dr Day in 1 week. Office will call you for appt date/time 2. Follow up with Cardiology as scheduled MONITOR Blood pressure -- take readings during next office appt Blood sugars -- take readings during next office appt Current Hospital Diet Patient's current hospital diet: AHA Diet (Heart Healthy), Diabetes Type 2 Diet Discharge Diet Recommended Diet: AHA Diet (Heart Healthy), Low Sodium Diet (2gm Na), Diabetes Type 1 Diet Pending Studies Studies pending at discharge: no Laboratory Results Hemoglobin A1c Test 09/18/16 05:10 Range/Units Estimated Average Glucose 189 mg/dl Hemoglobin A1c 8.2 H 4.5-5.6 % Lipid Panel Test 09/18/16 05:10 Range/Units Triglycerides Level 158 H 0-150 mg/dl Cholesterol Level 158 0-200 mg/dl HDL Cholesterol 66 mg/dl Cholesterol/HDL Ratio 2.4 LDL Cholesterol, Calculated 60 mg/dl Medical Emergencies . Who to Call and When: Medical Emergencies: If at any time you feel your situation is an emergency, please call 911 immediately. . Non-Emergent Contact Non-Emergency issues call your: Primary Care Provider . . "Provider Documentation" section prepared by Aimna Samuels. . VTE Core Measure Inpt VTE Proph given/why not?: Enoxaparin (Lovenox)SQ
--- NOTE | 2016-09-18 17:45 | Discharge Summary ---
Discharge Summary Date of Service September 18, 2016. Discharge Summary Admission Date: September 17, 2016 at 19:19 Discharge Date: September 18, 2016 Discharge Disposition: Home Principal Diagnosis: 1. Hypertensive urgency 2. Chest pain, acute ND ruled out 3. DM-1 with hypoglycemic episodes Secondary Diagnoses/Problems: 1. HX of CAD 2. CKD3 Procedures: Tele monitoring Serial EKG Serial Trop CXR Consultations: Cardiology, Dr Fried Pending Studies/Follow-Up: Instructions / Follow-Up Instructions / Follow-Up MEDICATION CHANGES: 1. New medication : Imdur 60 mg daily 2. Decrease Insulin to 40 units daily as your blood sugar did drop down on the current treatment FOLLOW UP 1. Follow up with Dr Day in 1 week. Office will call you for appt date/time 2. Follow up with Cardiology as scheduled MONITOR Blood pressure -- take readings during next office appt Blood sugars -- take readings during next office appt Medication Reconciliation New Medications: Isosorbide Mononitrate (Isosorbide Mononitrate ER) 60 Mg Tab 60 MG PO DAILY for 30 Days, #30 TAB Changed Medications: Insulin Glargine (Lantus Solostar) 100 Unit/Ml Inj 40 UNITS SC HS for 30 Days (Changed from: 56 UNITS) Continued Medications: Aspirin Enteric Coated (Ecotrin Or Generic) 81 Mg Tab 81 MG PO DAILY, TAB Atorvastatin (Lipitor) 80 Mg Tab 80 MG PO HS Carvedilol (Carvedilol) 25 Mg Tab 50 MG PO BID Cholecalciferol (Vitamin D3) 3,000 Unit Tab 3000 INTER.UNIT PO HS Clopidogrel Bisulfate (Clopidogrel) 75 Mg Tab 75 MG PO DAILY Furosemide (Furosemide) 40 Mg Tab 40 MG PO DAILY Furosemide (Lasix) 40 Mg Tab 20 MG PO Q2D, TAB Hydralazine HCl (Hydralazine HCl) 50 Mg Tab 50 MG PO BID Insulin Aspart (Novolog Flexpen) 100 Units/Ml Inj 1 DOSE SC UD COVERAGE DIRECTED BY SLIDING SCALE Nitroglycerin (Nitrostat) 0.4 Mg Sub 0.4 MG UT UD PRN for Chest Pain, BTL Omeprazole (Prilosec) 20 Mg Cap 20 MG PO QAM Terazosin Hcl (Hytrin) 2 Mg Cap 4 MG PO HS, CAP Admission Information HPI (per Admitting provider): 41 YO male followed by Dr. Day for Family Medicine and Arsenio Ramsay PA-C for Cardiology. History of ischemic heart disease, hypertension, DM type I, CKD, and other problems noted below. Cardiac cath 2000 demonstrated 80% mid-distal LAD lesion, 30% proximal-mid LAD lesion, and 40% lesion in left circumflex. PCI of LAD with drug-eluting stent performed. Recently experiencing dyspnea on exertion. Echo performed in clinic on 08/14/16 demonstrated normal LV wall motion and systolic function, grade II diastolic dysfunction. Lexiscan nuclear stress test on 08/14/16 showed evidence of lateral ischemia. Saw Mr. Ramsay for follow-up on 09/04/16. Patient opted for continued medical management. Developed chest pain today around noon at rest. He was preparing lunch. Had not eaten breakfast today. Chest pain described as midsternal chest pressure, rated 4-5/10. Pain did not radiate. It was associated with sweats, dyspnea, nausea. He took aspirin at home, but no NTG. Came to ED where he received O2, topical NTP, and IV labetalol for elevated BP. Chest pressure improved, essentially resolved by time of my assessment. . Physical Exam (per Admitting): General Appearance: WD/WN, no apparent distress Head: normocephalic, atraumatic Eyes: + pertinent finding (enucleation left eye with ocular prosthesis; left ptosos; right eye- pupil reactive, anicteric) ENT: normal ENT inspection, hearing grossly normal, pharynx normal Neck: supple, no adenopathy, thyroid normal, no JVD, trachea midline Respiratory/Chest: lungs clear, no respiratory distress, no accessory muscle use Cardiovascular: regular rate, rhythm, no edema, no gallop, no JVD, no murmur , normal peripheral pulses (radial and pedal pulses symmetric), + gallop/S4, + pertinent finding (carotids 2/2 bilat) Abdomen/GI: normal bowel sounds, non tender, soft, no organomegaly, no pulsatile mass Extremities/Musculoskelatal: normal inspection, no calf tenderness, normal capillary refill, no pedal edema Neurologic/Psych: 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 In ED, was noted to have high BP 200s. CHEST PAIN, Likely secondary to Hypertensive urgency, acute ND ruled out. -Risk factors: Multiple- CAD with complex hx, DM with complications, Recent nuclear scan 2 weeks ago- mild lateral ischemia. Medical management preferred by patient unless refractory symptoms despite optimal medical therapies given high risk of renal failure and need of dialysis if cardiac catheterization is completed -Continue ASA, plavix, beta bibiana, statin -Work up- EKG x 2 - non ischemic, Trop x 3 negative; Echo 08/13- preserved EF -Cardiology on board- Likely pain secondary to HTN urgency. No further intervention per cardiology. If BP better, cleared for discharge to home. HYPERTENSIVE URGENCY- BP improved Labile HTN --BP improved. Patient came in with BP of 216/122, down to 150-160s. Patient wants to be discharged and very anxious. He says he takes his Hydralazine 50 mg PO BID and 50m g in day time as needed as instructed by Arsenio Ritter, Cardiology. Has been getting only 50 mg PO BID here . Added Imdur 60 mg daily per cardiology recommendations. -Continue home carvedilol 50 mg PO BID , hydralazine 50 mg PO BID, hytrin 4 mg daily, furosemide 40 mg daily and q 2 days. -D/C nitro ointment and PRN clonidine -No FRED/ARB DM TYPE I WITH HYPOGLYCEMIC EPISODES Uncontrolled with fluctuations -Hgb A1C0= 8.6. -Decrease lantus to 40 units from 56 units. Continue with NovoLog. -Pharmacy consult placed- discussed with them about the discharge plan -Need to do home blood glucose monitoring and take readings to PCP during next appointment -Counseling done CKD 3- Baseline around 2.0, near baseline -S/P IVF -Avoid nephrotoxins VTE PROPHYLAXIS Moderate risk for VTE. SQ enoxaparin. Ambulate. DISPOSITION Observation status on Telemetry Unit. Expected discharge to home. Family Medicine follow-up with Dr. Day. Cardiology follow-up with Arsenio Ramsay PA-C Eager to be discharged and very anxious Okay to discharge home with follow up with PCP Total time spent on discharge = 35 minutes This includes examination of the patient, discharge planning, medication reconciliation, and communication with other providers. Discharge Instructions Activity Recommendations Activity Limitations: resume your previous activity . Instructions / Follow-Up Instructions / Follow-Up MEDICATION CHANGES: 1. New medication : Imdur 60 mg daily 2. Decrease Insulin to 40 units daily as your blood sugar did drop down on the current treatment FOLLOW UP 1. Follow up with Dr Day in 1 week. Office will call you for appt date/time 2. Follow up with Cardiology as scheduled MONITOR Blood pressure -- take readings during next office appt Blood sugars -- take readings during next office appt Current Hospital Diet Patient's current hospital diet: AHA Diet (Heart Healthy), Diabetes Type 2 Diet Discharge Diet Recommended Diet: AHA Diet (Heart Healthy), Low Sodium Diet (2gm Na), Diabetes Type 1 Diet Pending Studies Studies pending at discharge: no Laboratory Results Hemoglobin A1c Test 09/18/16 05:10 Range/Units Estimated Average Glucose 189 mg/dl Hemoglobin A1c 8.2 H 4.5-5.6 % Lipid Panel Test 09/18/16 05:10 Range/Units Triglycerides Level 158 H 0-150 mg/dl Cholesterol Level 158 0-200 mg/dl HDL Cholesterol 66 mg/dl Cholesterol/HDL Ratio 2.4 LDL Cholesterol, Calculated 60 mg/dl Medical Emergencies . Who to Call and When: Medical Emergencies: If at any time you feel your situation is an emergency, please call 911 immediately. . Non-Emergent Contact Non-Emergency issues call your: Primary Care Provider . . "Provider Documentation" section prepared by Amina Samuels. . VTE Core Measure Inpt VTE Proph given/why not?: Enoxaparin (Lovenox)SQ
[2016-09-18] MEDS ORDERED: INSULIN GLARGINE SC SCH (21:00)
[2016-09-19] MEDS ORDERED: INSULIN ASPART 100 UNITS/ML 3 ML PEN SC SCH
[2016-09-19] MEDS ORDERED: ISOSORBIDE MONONITRATE 60 MG TABCR PO SCH (09:00)
== END 2016-09-18 18:24 | disposition home or self-care (01) ==
LOC: ENRESERVDT → ENRESERVTM → C.EDB 16:07 → C.2T 19:19
PROVIDERS: ADMIT Hospitalist; ATTEND Internal Medicine
DX: I16.0 Hypertensive urgency (principal); R07.9 Chest pain, unspecified; I12.9 Hypertensive chronic kidney disease with stage 1 through stage 4 chronic kidney disease, or unspecified chronic kidney disease; E11.22 Type 2 diabetes mellitus with diabetic chronic kidney disease; N18.3 Chronic kidney disease, stage 3 (moderate); I25.10 Atherosclerotic heart disease of native coronary artery without angina pectoris; H54.42 Blindness, left eye, normal vision right eye; Z79.4 Long term (current) use of insulin; Z79.82 Long term (current) use of aspirin; Z79.02 Long term (current) use of antithrombotics/antiplatelets; Z83.3 Family history of diabetes mellitus

== ENCOUNTER 2016-10-02 20:26 | Emergency (ER) | payer OTHER ==
[~2016-10-02] VITALS: Ht 180.3 cm; Wt 113.9 kg
[~2016-10-02 20:26] MED LIST changes: +APR50 PO; +ASPI81TA21 PO; +ATOR-26 PO; +CHOL1TAB12 PO; +CRG25 PO; +FRS/40 PO; +HYT/2 PO; +IMDSR60 PO; +INSDGIPEN SC; -INSUINJ14 SC; -INSUINJ4 SC; -LPT40 PO; +LSX40 PO; +NITR0.4S UT; +NVLGI/PEN SC; +OMEP20CA9 PO; -OXYC-609 PO; +PLV75 PO
[2016-10-02 20:30] VITALS: BP 151/85; PULSE 89; TEMP 37; O2SAT 95; Ht 180.3 cm; Wt 113.9 kg
[2016-10-02] MEDS ORDERED: XYLOCAINE 1%/SOD BICARB 20 ML VIAL INFIL ONE (20:45)
[2016-10-02] MEDS ORDERED: DIPHTHERIA/TETANUS/PERTUSSIS 0.5 ML SYR/VIAL IM. ONE (20:45)
[2016-10-02] MEDS ORDERED: CEPH500C PO (21:22)
--- NOTE | 2016-10-02 21:36 | EMERGENCY ROOM VISIT NOTE ---
History First contact with patient: 20:33 Chief Complaint: PUNCTURE WOUND Stated Complaint: FISHING HOOK L HAND RING FINGER Nursing Triage Summary: Fishing hook stuck in left ring finger. History of Present Illness The patient is a 41 year old male who presents to the Emergency Room with complaints of a fishhook stuck in his left ring finger. The patient reports that he was attempting to bait his hook when his dog ran past him, caught the fishing line and pulled the hook into the finger. The patient attempted to remove the hook without success. The patient denies any pain, and is right-hand -dominant. The patient is uncertain of his last tetanus immunization, but believes that it is up-to-date within the past 4-5 years. Review of Systems 6 system review was performed and was negative except for pertinent positives and negatives as indicated in history of present illness Past Medical/Surgical History Medical Problems: (1) Blind left eye (2) CKD (chronic kidney disease), stage III (3) Coronary artery disease (4) Diabetes mellitus type 1 (5) Dyslipidemia (6) Gastroesophageal reflux disease (7) GERD (gastroesophageal reflux disease) (8) Hypertension Surgical Problems: (1) Status post cardiac catheterization (2) Status post coronary artery stent placement (3) Status post enucleation Family History Cancer MOTHER (blowing engineer malignancy) Diabetes mellitus MOTHER AUNT AUNT Hypertension MOTHER Stroke MOTHER Social History Smoking Status: Never Smoker Alcohol Use: occasionally Drug Use: none Marital Status: Housing Status: lives with family Occupation Status: disabled Current/Historical Medications Scheduled Aspirin Enteric Coated (Ecotrin Or Generic), 81 MG PO DAILY Atorvastatin (Lipitor), 80 MG PO HS Carvedilol (Carvedilol), 50 MG PO BID Cephalexin Monohydrate (Keflex), 500 MG PO QID Cholecalciferol (Vitamin D3), 3,000 INTER.UNIT PO HS Clopidogrel Bisulfate (Clopidogrel), 75 MG PO DAILY Furosemide (Furosemide), 40 MG PO DAILY Furosemide (Lasix), 20 MG PO Q2D Hydralazine HCl (Hydralazine HCl), 50 MG PO BID Insulin Aspart (Novolog Flexpen), 1 DOSE SC UD Insulin Glargine (Lantus Solostar), 40 UNITS SC HS Isosorbide Mononitrate (Isosorbide Mononitrate ER), 60 MG PO DAILY Omeprazole (Prilosec), 20 MG PO QAM Terazosin Hcl (Hytrin), 4 MG PO HS Scheduled PRN Nitroglycerin (Nitrostat), 0.4 MG UT UD PRN for Chest Pain Allergies Coded Allergies: Benzonatate (Verified Allergy, Unknown, told not to take, 02/25/15) Ibuprofen (Verified Allergy, Unknown, told not to take, 02/25/15) Physical Exam Vital Signs Date Time Temp Pulse Resp B/P (MAP) Pulse Ox O2 Delivery O2 Flow Rate FiO2 10/02/16 20:30 37.0 89 16 151/85 95 Room Air Pain Rating (0-10): 0 Physical Exam CONSTITUTIONAL: Healthy and well nourished. Alert and oriented X 3 with positive affect. MUSCULOSKELETAL: Examination shows a fishhook embedded within the radial aspect of the left ring finger. No active bleeding noted. The patient is able to flex and extend the finger joints without any discomfort. INTEGUMENTARY: No rash or other significant dermatologic conditions noted. NEUROLOGIC: Left fourth fingertip is sensory intact. Medical Decision & Procedures Medications Administered Medications (Trade) Dose Ordered Sig/Solitario Route Start Time Stop Time Status Last Admin Dose Admin Diphtheria/ Pertussis/Tetanus Vacc (Adacel Inj) 0.5 ml ONCE ONCE IM. 10/02/16 20:45 10/02/16 20:53 DC 10/02/16 21:01 0.5 ML Procedure Jay removal was performed under digital block anesthesia after receiving verbal consent from the patient. Procedure was performed by our physician assistant hvac mechanic student under my direct supervision. Using buffered 1% lidocaine without epinephrine, good digital block anesthesia was administered. After allowing adequate time for anesthesia, the hook was successfully removed without any tissue injury. The tissue was then cleansed and covered with a bacitracin pressure dressing. ED Course Patient history and physical exam were performed. Nurse's notes were reviewed. I did have our Engine Room Helpermanager strategic marketing a medical records, showing that the patient 's last tetanus immunization was in March 2008. The patient elected receiving Adacel IM. Hook removal was performed under digital block anesthesia. The patient was encouraged to keep the wound clean. The patient reports that he does have a significant medical history, and does frequently gets skin infections. He was provided a prescription for Keflex should he start to notice any developing infection. The patient was happy with plan of care, voiced understanding of all discharge instructions, and denied any pain at the time of discharge. Medical Decision Impression Primary Impression: Foreign body of left ring finger Departure Information Dispostion Home / Self-Care Prescriptions Cephalexin Monohydrate (Keflex) 500 Mg Cap 500 MG PO QID for 7 Days, #28 CAP Prov: Mina Phillips PA 10/02/16 Forms HOME CARE DOCUMENTATION FORM, IMPORTANT VISIT INFORMATION Patient Instructions My [facility] Additional Instructions Keep wound clean. Apply pressure dressing to reduce bleeding. Start Keflex antibiotics for any signs of developing infection.
== END 2016-10-02 21:28 | disposition home or self-care (01) ==
LOC: C.EDB 20:28 → C.EDD 21:28
DX: S60.455A Superficial foreign body of left ring finger, initial encounter (principal); Y93.89 Activity, other specified; Z23 Encounter for immunization; N18.3 Chronic kidney disease, stage 3 (moderate); I12.9 Hypertensive chronic kidney disease with stage 1 through stage 4 chronic kidney disease, or unspecified chronic kidney disease; I25.10 Atherosclerotic heart disease of native coronary artery without angina pectoris; E10.9 Type 1 diabetes mellitus without complications; E78.5 Hyperlipidemia, unspecified; K21.9 Gastro-esophageal reflux disease without esophagitis; Z90.01 Acquired absence of eye; Z95.5 Presence of coronary angioplasty implant and graft; Z80.9 Family history of malignant neoplasm, unspecified; Z83.3 Family history of diabetes mellitus; Z82.49 Family history of ischemic heart disease and other diseases of the circulatory system; Z82.3 Family history of stroke; Z79.82 Long term (current) use of aspirin; Z79.899 Other long term (current) drug therapy; Z79.4 Long term (current) use of insulin

== ENCOUNTER 2017-06-26 01:09 | Emergency (ER) | payer OTHER ==
[~2017-06-26] VITALS: Ht 175.3 cm; Wt 110.8 kg
[2017-06-26 01:15] VITALS: TEMP 36.4; Ht 175.3 cm; Wt 110.8 kg
[2017-06-26 01:55] LABS: BASO % 0.9 %; BASO ABS # 0.08 K/uL (0-0.2); EOS % 6.1 %; EOS ABS # 0.56 K/uL (0-0.5); HEMATOCRIT 34.1 % (42-52); HEMOGLOBIN 11.9 g/dL (14.0-18.0); IG# 0.13 K/uL (0.00-0.02); LYMPH % 31.4 %; LYMPH ABS # 2.88 K/uL (1.2-3.4); MEAN CORPUSCULAR HEMOGLOBIN 31.1 pg (25-34); MEAN CORPUSCULAR HGB CONC 34.9 g/dl (32-36); MEAN PLATELET VOLUME 8.9 fL (7.4-10.4); MONO % 6.3 %; MONO ABS # 0.58 K/uL (0.11-0.59); NEUT % 53.9 %; NEUT ABS # 4.95 K/uL (1.4-6.5); PLATELET COUNT 249 K/uL (130-400); RED CELL DISTRIBUTION WIDTH CV 12.9 % (11.5-14.5); RED CELL DISTRIBUTION WIDTH SD 41.2 fL (36.4-46.3); WHITE BLOOD COUNT 9.18 K/uL (4.8-10.8)
[2017-06-26] MEDS ORDERED: CHOL20007 PO (02:03)
[2017-06-26] MEDS ORDERED: INSDGI SC (02:03)
[2017-06-26 02:14] LABS: CREATININE 2.39 mg/dl (0.60-1.40); POTASSIUM 3.6 mmol/L (3.5-5.1)
--- NOTE | 2017-06-26 02:17 | EMERGENCY ROOM VISIT NOTE ---
History Report prepared by Jacqueline: Jeremiah Nazario Under the Supervision of: Dr. Ashley Ruano D.O. First contact with patient: 01:24 Chief Complaint: SYNCOPE Stated Complaint: FALL HIT HEAD History of Present Illness The patient is a 42 year old male who presents to the Emergency Room with complaints of a sudden syncopal episode that occurred prior to arrival. The patient's states that the patient was in the bathroom sitting on the toilet , and he started coughing, and then he passed out. He then fell to the ground and hit his head, and then she states that she found him very stiff and unresponsive for 20-25 seconds. Afterwards when he came to he did not remember passing out. The patient's additionally notes that this happened earlier in the week as well while the patient was watching television. He started coughing, then he stopped breathing and became very stiff before regaining consciousness. He did not remember that episode either, and he states that a similar syncopal episode 6-8 years ago after a coughing episode as well. The patient notes that he had the flu earlier in the week, though he states that he has been feeling better recently. He reports that today he went shopping, and he was having low blood pressure, and he was feeling weak so he had to sit. He notes that whenever he gets sick his blood pressure drops, so he has been backing off of his blood pressure medications, though he did take them this morning. The patient states that he is currently on Plavix and aspiring, and he states that he has some head pain though no other pains. The patient does not currently work. He states that he did not take his water pill today, and he states that he is currently finishing a course of Zithromax and on his last day. Source of History: patient, spouse/significant other Onset: prior to arrival Position: other (global) Quality: other (syncope) Timing: other (sudden) Associated Symptoms: + LOC Note: Associated symptoms: Head pain Review of Systems See HPI for pertinent positives & negatives. A total of 10 systems reviewed and were otherwise negative. Past Medical & Surgical Medical Problems: (1) Blind left eye (2) CKD (chronic kidney disease), stage III (3) Coronary artery disease (4) Diabetes mellitus type 1 (5) Dyslipidemia (6) Gastroesophageal reflux disease (7) GERD (gastroesophageal reflux disease) (8) Hypertension Surgical Problems: (1) Status post cardiac catheterization (2) Status post coronary artery stent placement (3) Status post enucleation Family History Cancer MOTHER (power manager malignancy) Diabetes mellitus MOTHER AUNT AUNT Hypertension MOTHER Stroke MOTHER Social History Smoking Status: Never Smoker Alcohol Use: occasionally Drug Use: none Marital Status: Housing Status: lives with family Occupation Status: disabled Current/Historical Medications Scheduled Aspirin Enteric Coated (Ecotrin Or Generic), 81 MG PO DAILY Atorvastatin (Lipitor), 80 MG PO HS Carvedilol (Carvedilol), 50 MG PO BID Cholecalciferol (Vitamin D3), 4,000 UNITS PO HS Clopidogrel Bisulfate (Clopidogrel), 75 MG PO QAM Furosemide (Furosemide), 40 MG PO QAM Hydralazine HCl (Hydralazine HCl), 50 MG PO BID Insulin Aspart (Novolog Flexpen), 1 DOSE SC UD Insulin Glargine (Lantus), 40 UNITS SC HS Omeprazole (Prilosec), 20 MG PO QAM Terazosin Hcl (Hytrin), 4 MG PO HS Scheduled PRN Furosemide (Lasix), 20 MG PO DIRECTED PRN for INCREASED EDEMA Nitroglycerin (Nitrostat), 0.4 MG UT UD PRN for Chest Pain Allergies Coded Allergies: Benzonatate (Verified Allergy, Unknown, told not to take, 06/26/17) Ibuprofen (Verified Allergy, Unknown, told not to take, 06/26/17) Physical Exam Vital Signs Date Time Temp Pulse Resp B/P (MAP) Pulse Ox O2 Delivery O2 Flow Rate FiO2 06/26/17 03:05 68 22 94 06/26/17 03:01 155/76 06/26/17 02:50 70 17 95 06/26/17 02:35 69 20 95 06/26/17 02:31 173/96 06/26/17 02:20 71 16 95 06/26/17 02:00 121/69 06/26/17 01:59 105/77 06/26/17 01:58 170/96 06/26/17 01:56 73 170/96 78 105/77 77 121/69 06/26/17 01:54 75 18 93 06/26/17 01:39 77 20 97 Room Air 06/26/17 01:31 154/81 2/27/18 01:27 76 06/26/17 01:25 131/76 06/26/17 01:15 36.4 74 16 95/64 96 Room Air Physical Exam HEENT: Head - normocephalic. There is a large hematoma on the left temporal area. Pupils are equal, round, and reactive to light. Extraocular eye muscles are intact and sclera are anicteric. Ears - bilaterally patent canals with no evidence of hemotympanum. Nose - moist nasal mucosa without evidence of trauma or discharge. Mouth - moist buccal mucosa with no trauma to the teeth or signs of malocclusion. Neck: The neck is supple and there is no pain to palpation over the posterior cervical spine and no obvious step-offs or deformities. There is no JVD or tracheal deviation. Chest: There are no signs of deformities, contusions or abrasions to the chest wall. There is no obvious crepitus or paradoxical chest rise. Heart: Regular, rate, and rhythm. There is a normal S1 and S2 with no murmurs, clicks, or gallops appreciated. Lungs: Clear to auscultation bilaterally with no wheezes, rales, or rhonchi. Abdomen: Soft, completely nontender, nondistended, with good bowel sounds. There is no sign of trauma such as contusions, abrasions or penetrations. There are no palpable pulsatile masses or hepatosplenomegaly. There is no guarding, rigidity, or rebound noted. Pelvis: Stable to rock and compression. Extremities: No obvious trauma, deformities, contusions, or edema. There are easily palpable peripheral pulses. Neuro: The patient is awake and alert and easily able to follow commands. GCS 15. Muscle strength is 5 out of 5 in all 4 extremities. Otherwise, neuro exam is unremarkable. Back: The entire thoracic, lumbar, and sacral spine were palpated. There are no obvious step-offs or deformities noted. There are no obvious signs of trauma such as contusions abrasions penetrations noted to the back. Medical Decision & Procedures ER Provider Diagnostic Interpretation: Radiology results as stated below per my review and the radiologist's interpretation: CT HEAD: No intracranial hemorrhage. No calvarial fractures. Left frontal scalp hematoma. Left high prosthesis is noted. No retro-orbital hematoma X-ray results as stated below per interpretation by me. Chest X-ray 2 Views: No acute pulmonary infiltrate. Borderline cardiomegaly. Mild peribronchial cuffing Laboratory Results 06/26/17 01:30 Red Blood Count 3.83, Mean Corpuscular Volume 89.0, Mean Corpuscular Hemoglobin 31.1, Mean Corpuscular Hemoglobin Concent 34.9, Mean Platelet Volume 8.9, Neutrophils (%) (Auto) 53.9, Lymphocytes (%) (Auto) 31.4, Monocytes (%) (Auto) 6.3, Eosinophils (%) (Auto) 6.1, Basophils (%) (Auto) 0.9, Neutrophils # (Auto) 4.95, Lymphocytes # (Auto) 2.88, Monocytes # (Auto) 0.58, Eosinophils # (Auto) 0.56, Basophils # (Auto) 0.08 06/26/17 01:30 Test 06/26/17 01:30 White Blood Count 9.18 K/uL (4.8-10.8) Red Blood Count 3.83 M/uL (4.7-6.1) Hemoglobin 11.9 g/dL (14.0-18.0) Hematocrit 34.1 % (42-52) Mean Corpuscular Volume 89.0 fL (80-100) Mean Corpuscular Hemoglobin 31.1 pg (25-34) Mean Corpuscular Hemoglobin Concent 34.9 g/dl (32-36) Platelet Count 249 K/uL (130-400) Mean Platelet Volume 8.9 fL (7.4-10.4) Neutrophils (%) (Auto) 53.9 % Lymphocytes (%) (Auto) 31.4 % Monocytes (%) (Auto) 6.3 % Eosinophils (%) (Auto) 6.1 % Basophils (%) (Auto) 0.9 % Neutrophils # (Auto) 4.95 K/uL (1.4-6.5) Lymphocytes # (Auto) 2.88 K/uL (1.2-3.4) Monocytes # (Auto) 0.58 K/uL (0.11-0.59) Eosinophils # (Auto) 0.56 K/uL (0-0.5) Basophils # (Auto) 0.08 K/uL (0-0.2) RDW Standard Deviation 41.2 fL (36.4-46.3) RDW Coefficient of Variation 12.9 % (11.5-14.5) Immature Granulocyte % (Auto) 1.4 % Immature Granulocyte # (Auto) 0.13 K/uL (0.00-0.02) Anion Gap 11.0 mmol/L (3-11) Est Creatinine Clear Calc Drug Dose 48.4 ml/min Estimated GFR () 36.8 Estimated GFR (Non- 31.8 BUN/Creatinine Ratio 11.8 (10-20) Calcium Level 8.0 mg/dl (8.5-10.1) Laboratory results per my review. ECG Per My Interpretation Indication: syncope Rate (beats per minute): 73 Rhythm: normal sinus Findings: T-wave inversion (lead 1 and AVL), no acute ischemic change, no ectopy Comparison ECG Date: 09/18/16 Change: no significant change ED Course 0133: Past medical records reviewed. The patient was evaluated in room B9. A complete history and physical exam was performed. An IV lock was initiated and labs were drawn as above. A 12-lead EKG was obtained as described above. The patient went for CT scan of his brain to rule out trauma from the fall. 0156: Orthostatic vital signs are done. Blood pressure drops upon sitting and standing. 0251: Upon reevaluation, the patient is feeling well. I discussed findings and results with him. He verbalized agreement of the treatment plan. He was discharged home. Medical Decision The patient is a 42 year old male who presents to the ED after a syncopal episode. Differential diagnosis includes skull fracture, intracranial hemorrhage , closed head injury, pneumonia, dehydration, orthostasis, cough syncope. Lab results show: normal white blood cell count, hemoglobin 11.9 which is slightly lower than baseline, glucose 217, creatinine is 2.39 which is slightly higher than baseline, BUN 28. This is a 42-year-old male patient with multiple chronic health issues who presents to the emergency department after an episode of passing out and falling from the toilet striking his head on the floor. The patient describes a long history of having low blood pressures as well as a history of episodes of syncope while coughing. The patient is finishing up a course of Zithromax after being ill last week. He states that for the past 48 hours, he is felt much better. He does have a large hematoma on the left side of his head. CT scan was negative for intracranial trauma. Patient does have a slightly elevated creatinine. I have asked him to follow-up with his PCP to have that rechecked. I spent some time talking to him about the importance of avoiding further trauma with episodes of passing out while coughing. He was told to avoid driving until his cough has completely resolved. He should finish the course of antibiotics. He should sit himself on the ground if he begins to cough to avoid falling. The patient admits that the blood sugars do run high when he has any type of an infection. Head Trauma GCS Score: 15 Medication Reconcilliation Current Medication List: was personally reviewed by me Blood Pressure Screening Patient's blood pressure: Elevated blood pressure Blood pressure disposition: Referred to PCP Impression Primary Impression: Cough syncope Additional Impression: Closed head injury Scribe Attestation The scribe's documentation has been prepared under my direction and personally reviewed by me in its entirety. I confirm that the note above accurately reflects all work, treatment, procedures, and medical decision making performed by me. Departure Information Dispostion Home / Self-Care Referrals Higinio Day M.D.(JOE) (PCP) Forms HOME CARE DOCUMENTATION FORM, IMPORTANT VISIT INFORMATION Patient Instructions ED Head Injury Closed, My [facility] Additional Instructions Rest with your head elevated. Apply ice to the head. Move slowly. Do not drive until cough resolved. Sit on the floor or a bed if you begin coughing. Follow up with PCP for repeat Creatinine level in one week. Problem Qualifiers Additional Impression: Closed head injury Encounter type: initial encounter Qualified Codes: S09.90XA - Unspecified injury of head, initial encounter
[2017-06-26 03:01] VITALS: BP 155/76
[2017-06-26 03:05] VITALS: PULSE 68; O2SAT 94
--- NOTE | 2017-06-26 06:52 | DIAGNOSTIC IMAGING REPORT ---
CHEST 2 VIEWS ROUTINE CLINICAL HISTORY: Cough, syncope COMPARISON STUDY: 09/17/2016 FINDINGS: The cardiac and mediastinal contours are normal. There is no evidence of focal pulmonary consolidation. There is no evidence of failure. No pleural effusions are visualized.[ IMPRESSION: No active disease in the chest. Electronically signed by: Teddy Morillo M.D. 06/26/2017 6:51 AM Dictated Date/Time: 06/26/2017 6:51 AM
--- NOTE | 2017-06-26 07:34 | DIAGNOSTIC IMAGING REPORT ---
HEAD WITHOUT CONTRAST (CT) CLINICAL HISTORY: 42 years-old Male presenting with eval for trauma - fall, injured the right side of the head, syncope. TECHNIQUE: Multidetector CT imaging of the head was performed without the use of intravenous contrast. IV contrast: None. A dose lowering technique was used consistent with the principles of ALARA (as low as reasonably achievable). COMPARISON: 11/03/2012. CT DOSE (mGy.cm): The estimated cumulative dose is 537.48 mGy.cm. FINDINGS: Information Specialist topogram: Unremarkable. Ventricles and sulci normal in size. Brain parenchyma normal in appearance with preserved aldrich-white differentiation. No mass effect or midline shift. No hemorrhage or acute territorial infarct. No extra-axial fluid collection. Minimal mucosal thickening in the left maxillary sinus and ethmoid air cells. Calvarium intact. Prosthetic globe in the left orbit. Soft tissue swelling and small subgaleal hematoma in the left frontal region. IMPRESSION: 1. No acute intracranial abnormality. 2. Superficial subcutaneous contusion and small subgaleal hematoma in the left frontal region. Electronically signed by: Miguel Villa M.D. 06/26/2017 7:33 AM Dictated Date/Time: 06/26/2017 6:56 AM
== END 2017-06-26 03:19 | disposition home or self-care (01) ==
LOC: C.EDB 01:11
DX: R55 Syncope and collapse (principal); R05 Cough; S00.03XA Contusion of scalp, initial encounter; W18.11XA Fall from or off toilet without subsequent striking against object, initial encounter; Y92.002 Bathroom of unspecified non-institutional (private) residence as the place of occurrence of the external cause; I12.9 Hypertensive chronic kidney disease with stage 1 through stage 4 chronic kidney disease, or unspecified chronic kidney disease; E10.22 Type 1 diabetes mellitus with diabetic chronic kidney disease; N18.3 Chronic kidney disease, stage 3 (moderate); I25.10 Atherosclerotic heart disease of native coronary artery without angina pectoris; E78.5 Hyperlipidemia, unspecified; K21.9 Gastro-esophageal reflux disease without esophagitis; Z95.5 Presence of coronary angioplasty implant and graft; Z79.82 Long term (current) use of aspirin; Z79.02 Long term (current) use of antithrombotics/antiplatelets; Z79.4 Long term (current) use of insulin; Z88.8 Allergy status to other drugs, medicaments and biological substances; Z88.6 Allergy status to analgesic agent; Z80.49 Family history of malignant neoplasm of other genital organs; Z83.3 Family history of diabetes mellitus; Z82.49 Family history of ischemic heart disease and other diseases of the circulatory system; Z82.3 Family history of stroke

== ENCOUNTER 2020-10-06 22:18 | Inpatient (IN) ==
[2020-10-06] MEDS ORDERED: ACETAMINOPHEN 1,000 MG/100 ML VIAL IV STA (23:50)
[2020-10-06] MEDS ORDERED: dexAMETHasone**PF** 10 MG/ML VIAL IV ONE (23:50)
[2020-10-06] MEDS ORDERED: PROMETHAZINE 25 MG/51 ML BAG IV STA (23:52)
[2020-10-07 00:39] LABS: Basophils # (auto) 0.02 K/uL (0-0.2); Basophils % (auto) 0.3 %; Eosinophils # (auto) 0.17 K/uL (0-0.5); Eosinophils % (auto) 2.5 %; Hematocrit (blood only) 30.1 % (42-52); Hemoglobin 9.8 g/dL (14.0-18.0); Immature Granulocytes # (auto) 0.01 K/uL (0.00-0.02); Immature Granulocytes % (auto) 0.1 %; Lymphocytes # (auto) 0.65 K/uL (1.2-3.4); Lymphocytes % (auto) 9.7 %; Mean Corpuscular Hemoglobin 32.2 pg (25-34); Mean Corpuscular Hgb Conc 32.6 g/dL (32-36); Mean Platelet Volume 9.3 fL (7.4-10.4); Monocytes # (auto) 0.67 K/uL (0.11-0.59); Neutrophils % (auto) 77.4 %; Platelet Count 147 K/uL (130-400); RDW Coefficient of Variation 15.6 % (11.5-14.5); RDW Standard Deviation 55.3 fL (36.4-46.3); Red Blood Count 3.04 M/uL (4.7-6.1); White Blood Count 6.72 K/uL (4.8-10.8)
[2020-10-07] MEDS: HYDROmorphone INJ 1 MG/ML SYRINGE IV PRN ×2 (00:41→04:45)
[2020-10-07 01:18] LABS: Albumin Globulin Ratio 0.9 (0.9-2); Albumin Level 3.4 gm/dl (3.4-5.0); Calcium 8.7 mg/dl (8.5-10.1); Creatinine Clr Calc Pharmacy 10.3 ml/min; Est GFR (African American) 5.8 ml/min; Potassium 6.1 mmol/L (3.5-5.1); Total Protein 7.4 gm/dl (6.4-8.2)
[2020-10-07] MEDS ORDERED: ALBUTEROL 0.083% NEBU SOLN 3 ML VIAL NEB STA (03:24)
[2020-10-07] MEDS ORDERED: DEXTROSE 50% 50 ML SYRINGE IV STA (03:24)
[2020-10-07] MEDS ORDERED: CALCIUM GLUCONATE 1,000 MG/60 ML BAG IV STA (03:24)
[2020-10-07] MEDS ORDERED: SODIUM BICARB 8.4% INJ 50 MEQ/50 ML SYR IV STA (03:24)
[2020-10-07] MEDS ORDERED: NovoLIN-R INSULIN PER UNIT CHARGE IV STA (03:24)
[2020-10-07 04:53] LABS: Appearance Urine Clear (Clear); Bilirubin Urine Negative (Negative); Blood Urine Trace-lysed (Negative); Color Urine Yellow; Glucose Urine UA Trace (Negative); Ketones Urine Negative (Negative); Leukocyte Esterase Urine Negative (Negative); Nitrite Urine Negative (Negative); Protein Urine 3+ (Negative); Urobilinogen Urine Negative (Negative)
[2020-10-07 05:02] LABS: Bacteria Urine Negative (Negative); Epithelial Cell Urine 0-5 /lpf (0-5); WBC Urine 0-5 /hpf (0-5)
--- NOTE | 2020-10-07 05:46 | History and Physical Report ---
DATE OF ADMISSION: 10/07/2020 CHIEF COMPLAINT: Severe back pain. HISTORY OF PRESENT ILLNESS: This is a 45-year-old male with past medical history significant for type 1 diabetes, end-stage renal disease on hemodialysis, history of CAD status post stent, bilateral carotid artery stenosis, labile hypertension, history of retinal edema, history of abnormal liver function tests, proliferative retinopathy, lumbar radiculitis, status post lumbar microdissection, GERD, history of cellulitis of the right lower extremity, hyperparathyroidism. He presents with severe back pain. The patient says since last Sunday he has severe back pain. He was in the ER on 10/02/2020, but the patient is not getting better. He is having ambulatory dysfunction because of severe pain and he is on hemodialysis and he does hemodialysis at home by himself 4-5 times a week. He could not do the dialysis at home because of severe back pain, so he came here and found to have potassium of 6.1. He is lying on his right side to get comfortable. With the pain medication, the pain is improving, but it is coming back. Denies any incontinence of stool or urine. He still makes some urine. He is somewhat constipated, but denies any blood in the stools. No fever, no chills, no abdominal pain. He has some nausea. No vomiting, no chest pain, no shortness of breath, no cough, no fever, no headache. He has some blurred vision from his cataract. No earache, no runny nose, no sore throat. Appetite is okay, but is somewhat down today. ALLERGIES: FRED INHIBITORS, OXYCODONE, IBUPROFEN, BENZOATE. PAST MEDICAL HISTORY: As mentioned above. PAST SURGICAL HISTORY: Left heart catheterization, colonoscopy, dental surgery, laser trabeculoplasty, lumbar hemilaminectomy, partial removal of eye fluid, removal of inner eye fluid, repair of retinal detachment, treatment of extensive retinopathy. MEDICATIONS: The patient is on aspirin 81 mg p.o. daily, atorvastatin 40 mg p.o. at bedtime, calcium acetate 667 mg p.o. t.i.d. with meals, Coreg 50 mg p.o. b.i.d., vitamin D 125 mcg p.o. daily, Plavix 75 mg p.o. daily, Lasix 40 mg p.o. b.i.d., gabapentin 200 mg p.o. every other day, hydralazine 50 mg p.o. b.i.d., NovoLog FlexPen as directed, nitroglycerin 0.4 mg sublingual p.r.n., omeprazole 20 mg p.o. a.m., Percocet 1 tablet p.o. q. 6 hours p.r.n., ropinirole 0.5 mg p.o. every other day, terazosin 4 mg p.o. at bedtime, tramadol 50 mg p.o. q. 6 hours p.r.n. FAMILY HISTORY: Significant for aunt has diabetes, mother has type 2 diabetes, mother has stroke. SOCIAL HISTORY: . No smoking. Snuffs tobacco. No alcohol use. No drug use. REVIEW OF SYSTEMS: As per HPI. Rest of the review of systems negative. PHYSICAL EXAMINATION: GENERAL: The patient is obese, not in acute distress. VITAL SIGNS: Temperature afebrile, pulse 87, respiratory rate 18, blood pressure 191/122, oxygen 92% on room air. 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 NECK: No JVD, no neck masses. CARDIOVASCULAR: S1, S2 heard, regular rate and rhythm, no murmur, no gallop. RESPIRATORY SYSTEM: Normal AP diameter. No accessory muscle use. No wheezing, no crackles. ABDOMEN: Soft, bowel sounds present, nontender, no distention. CENTRAL NERVOUS SYSTEM: Alert and oriented. Speech clear, no facial droop. Moves extremities. EXTREMITIES: No edema, no erythema. MUSCULOSKELETAL: Lumbar left-sided paraspinal tenderness. Can move his lower extremities. LABORATORY DATA: WBC 6.7, hemoglobin 9.8, hematocrit 30.1, platelets 147. Sodium 134, potassium 6.1, chloride 100, bicarbonate 25, BUN 75, creatinine 10.9, serum glucose 108, calcium 8.7, total bilirubin 1.0, AST 5, ALT 11, alkaline phosphatase 99, lipase 167. EKG: Sinus rhythm with first-degree AV block at a rate of 83. IMAGING DATA: Lumbar spine MRI, left L5 nerve root may be compressed at the left lateral recess. L5-S1 posterior disc osteophyte complex causing moderate left foraminal stenosis. Mild bilateral lateral recess and right foraminal stenosis. Left lateral osteophytes. Straightening of the normal lumbar lordosis. No fracture or edema at the posterior soft tissues. ASSESSMENT AND PLAN: This is a 45-year-old male who presents with severe back pain. 1. Severe back pain: Lumbar MRI preliminary report shows possible compression of the L5 nerve root. Received Decadron in the ER and also on Dilaudid p.r.n. Will continue Dilaudid 0.5mg q 3hr p.r.n. Home Percocet prn. Will keep him n.p.o. Consult orthopedics for further recommendations. 2. Hyperkalemia: Missed dialysis. Received insulin, dextrose, sodium bicarbonate, nebs in the ER. Will follow repeat labs at 7:00 a.m. Consult nephrology for dialysis. 3. End-stage renal disease, on hemodialysis. He does dialysis at home by himself 4-5 times a week. Could not do last last dialysis because of his back pain. Will consult nephrology for dialysis. 4. Diabetes type I: On sliding scale at home. Will place on Lantus 5 units daily and sliding scale . Monitor the blood sugars. 5. History of hypertension: Continue his Coreg, hydralazine, terazosin. Will monitor his blood pressure. 6. History of coronary artery disease: On aspirin, Plavix, beta bibiana, and statin. 7. Carotid artery stenosis: On aspirin, Plavix, and statin. 8. Hyperlipidemia: On statin. 9. Deep venous thrombosis prophylaxis: Sequential compression devices for now. 10. Disposition: Closely monitor in the tele floor. Level 1 full code. Expect to discharge home and follow with family doctor. SHAUNNA
[2020-10-07] MEDS ORDERED: oxyCODONE/ACETAMINOPHEN 5mg/325mg TAB PO PRN (06:03)
[2020-10-07] MEDS ORDERED: NITROGLYCERIN SL 0.4 MG/TAB TAB SL PRN ×2 (06:03)
[2020-10-07] MEDS ORDERED: rOPINIRole HCL 0.25 MG TABLET PO SCH (06:03)
[2020-10-07] MEDS ORDERED: GABAPENTIN 100 MG CAP PO SCH (06:03)
[2020-10-07] MEDS ORDERED: POLYETHYLENE (MIRALAX) 17 GM PACK PO PRN (06:03)
[2020-10-07] MEDS ORDERED: ONDANSETRON INJ 2 MG/ML 2 ML VIAL IV PRN (06:03)
[2020-10-07 07:35] LABS: Basophils # (auto) 0.01 K/uL (0-0.2); Basophils % (auto) 0.2 %; Immature Granulocytes # (auto) 0.01 K/uL (0.00-0.02); Immature Granulocytes % (auto) 0.2 %; Lymphocytes # (auto) 0.22 K/uL (1.2-3.4); Lymphocytes % (auto) 4.1 %; Mean Corpuscular Hemoglobin 31.9 pg (25-34); Mean Corpuscular Hgb Conc 32.3 g/dL (32-36); Mean Platelet Volume 8.4 fL (7.4-10.4); Monocytes # (auto) 0.03 K/uL (0.11-0.59); Monocytes % (auto) 0.6 %; Neutrophils # (auto) 5.12 K/uL (1.4-6.5); Neutrophils % (auto) 94.9 %; Platelet Count 135 K/uL (130-400); RDW Coefficient of Variation 15.7 % (11.5-14.5); RDW Standard Deviation 56.1 fL (36.4-46.3); Red Blood Count 3.13 M/uL (4.7-6.1); White Blood Count 5.39 K/uL (4.8-10.8)
[2020-10-07] MEDS: INSULIN ASPART 100 UNITS/ML 3 ML PEN SC SCH ×4 (08:02→20:54)
[2020-10-07 08:12] LABS: BUN Creatinine Ratio 7.8 (10-20); Calcium 9.3 mg/dl (8.5-10.1); Est GFR (African American) 5.6 ml/min; Est GFR (Non-African American) 4.8 ml/min; Magnesium 2.4 mg/dl (1.8-2.4); Potassium 6.2 mmol/L (3.5-5.1)
[2020-10-07 08:16] LABS: Estimated Average Glucose 137 mg/dl; Hemoglobin A1C 6.4 % (4.5-5.6)
[2020-10-07] MEDS: CHOLECALCIFEROL 1,000 UNITS 25 MCG TAB PO SCH (08:43)
[2020-10-07] MEDS: ASPIRIN 81 MG ECTAB PO SCH (08:44)
[2020-10-07] MEDS: hydrALAZINE TAB 50 MG TAB PO SCH ×2 (08:44→20:51)
[2020-10-07] MEDS: CLOPIDOGREL BISULFATE 75 MG TAB PO SCH (08:44)
[2020-10-07] MEDS: FUROSEMIDE 40 MG TAB PO SCH ×2 (08:44→20:51)
[2020-10-07] MEDS: CALCIUM ACETATE 667 MG CAP/TAB PO SCH ×3 (08:44→17:18)
[2020-10-07] MEDS: carvediloL 25 MG TAB PO SCH ×2 (08:44→20:51)
[2020-10-07] MEDS: PANTOprazole 40 MG TAB PO SCH (08:45)
[2020-10-07] MEDS: INSULIN GLARGINE SOLOSTAR 100 UNITS/ML 3 ML PEN SC SCH ×2 (08:45→08:51)
--- NOTE | 2020-10-07 09:01 | Magnetic Resonance Report ---
MRI OF THE LUMBAR SPINE WITHOUT CONTRAST CLINICAL HISTORY: Low back pain. COMPARISON STUDY: Lumbar spine MRI January 31, 2015. Lumbar spine CT October 02, 2020. TECHNIQUE: Utilizing a 1.5 Mulu magnet and dedicated coil, multiplanar, multiecho imaging of the [facility] spine was performed without IV contrast. FINDINGS: For purposes of numbering on this exam, the L5-S1 disc space is assigned to axial image 23 of 25. Ali gnment of the lumbar spine is anatomic. Vertebral body heights are maintained. No marrow edema or jimmy picious marrow replacement. There is no intracanalicular mass or fluid collection. This exam is compr omised by motion artifact. Mild edema within the paraspinal musculature is noted. Prominent retroperi toneal lymph nodes are better depicted on CT of October 02, 2020. Moderate multilevel facet arthrosis is present. There is mild disc space narrowing with osteophytosis at L5-S1. L1-2: The central canal and neural foramen are patent. L2-3: The central canal and neural foramen are patent. L3-4: The central canal and neural foramen are patent. L4-5: There is a central/left paracentral disc protrusion. There is moderate narrowing of the left la teral recess and mild narrowing of the central canal. There is mild narrowing of the left neural fora men. Right neural foramen is patent. L5-S1: There is disc bulge. Facet arthrosis is present. The central canal is patent. There is mild na rrowing of the left lateral recess. Moderate narrowing of the left neural foramen is noted. Right tiny ral foramen is patent. IMPRESSION: 1. Central/left paracentral disc protrusion at L4-L5 that results in moderate narrowing of the left l ateral recess and mild narrowing of the left neural foramen. 2. Moderate narrowing of the left neural foramen at L5-S1. 3. Mild central canal stenosis at L4-L5. No severe central canal stenosis. 4. No lumbar spine fracture. ACT 112: Negative or not required by law. Electronically signed by: Fabio Dominguez M.D. 10/07/2020 9:00 AM
[2020-10-07] MEDS: HYDROmorphone INJ 0.5 MG/0.5 ML SYR IV PRN ×3 (09:03→20:49)
[2020-10-07] MEDS ORDERED: SODIUM CHLORIDE 0.9% 1000ML 1,000 ML IV PRN (10:06)
[2020-10-07] MEDS ORDERED: HEPARIN SOD (PORCINE) 1000 UNIT/ML IV ONE (10:06)
[2020-10-07] MEDS ORDERED: EPOETIN ALFA 10,000 UNITS/ML VIAL IV SCH (10:30)
[2020-10-07] MEDS ORDERED: HYDROmorphone INJ 0.5 MG/0.5 ML SYR IV STA (10:51)
[2020-10-07] MEDS ORDERED: oxyCODONE/ACETAMINOPHEN 5mg/325mg TAB PO STA (10:51)
[2020-10-07] MEDS ORDERED: Nursing to Pharmacy Communication SCH (11:00)
[2020-10-07 11:16] LABS: Hepatitis B Surface Ab Quant < 3.10 mIU/mL (>or=10mIU/mL Immune); Hepatitis B Surface Antibody Non-Immune
[2020-10-07 11:27] LABS: Hepatitis B Surf Ag Rflx Conf Neg (Neg)
--- NOTE | 2020-10-07 12:30 | Consultation Report ---
DATE OF CONSULTATION: 10/07/2020 NEPHROLOGY CONSULTATION NOTE REASON FOR CONSULT: Dialysis patient admitted with severe back pain. HISTORY OF PRESENT ILLNESS: The patient is a 45-year-old male with longstanding type 1 diabetes with ESRD, on home hemodialysis, history of coronary artery disease as well as multiple other medical problems who presented to the hospital earlier this morning with severe intractable back pain. He was also in the Emergency Department about 5 days ago for the same problem, but he was not getting better and came again. Because of extreme pain, he has not been able to do dialysis in the last few days. Blood work done in the Emergency Department today was consistent with high potassium and very high creatinine. He is getting dialysis as I speak. His blood pressure was high and hopefully will come down after dialysis. He is still complaining of lot of pain despite getting Dilaudid. PAST MEDICAL AND SURGICAL HISTORY: Includes type 1 diabetes, ESRD -- on chronic hemodialysis, retinopathy, lumbar radiculitis, status post lumbar microdissection, GERD, history of cellulitis, hyperparathyroidism, hypertension, coronary artery disease, status post stent, bilateral carotid artery stenosis, colonoscopy, laser trabeculoplasty, lumbar hemilaminectomy, partial removal of eye fluid, laser surgeries for retinopathy. MEDICATIONS: At home were reviewed in detail and are as per the reconciliation list. FAMILY HISTORY: Positive for type 2 diabetes in mother. No ESRD in the family. SOCIAL HISTORY: He is . No smoking. Snuffs tobacco. No alcohol, no drugs. ALLERGIES: ALLERGY LIST WAS REVIEWED AND IS PER THE RECONCILIATION LIST. REVIEW OF SYSTEMS: As detailed in the HPI; unless stated otherwise, 12 systems reviewed and negative. PHYSICAL EXAMINATION: GENERAL: Young white male who is somewhat obese. He is not in overt respiratory distress, but he seems to be uncomfortable because of the back pain. VITAL SIGNS: Most recent vital signs show blood pressure 193/112, pulse 94, temperature 36.6, 91% on room air. HEENT: Mucous membranes moist. NECK: Supple. No jugular venous distention. CHEST: Bilaterally clear to auscultation. CARDIOVASCULAR: S1, S2 regular. ABDOMEN: Soft, nontender. EXTREMITIES: Show trace edema. NEUROLOGIC: He is awake, alert, oriented x3. Normal speech. Moving all 4 extremities. No obvious focal deficit noted. LABORATORIES: Laboratory test done this morning shows a hemoglobin of 10.0, platelet count 135, sodium 131, potassium 6.2, BUN 89, creatinine 11.2. IMAGING: Chest x-ray was not done today. ASSESSMENT AND PLAN: A 45-year-old male with longstanding type 1 diabetes with end-stage renal disease, on home hemodialysis, now admitted with severe intractable back pain. As a result of severe back pain, he has missed dialysis in the last few days and now has hyperkalemia and high creatinine as well as some degree of fluid overload with hypertensive crisis. 1. End-stage renal disease: We will do dialysis and he is being transported to the dialysis unit as I speak. We will do for 3 hours 30 minutes and take about 2.5 kilo fluid. Ideally, I would have liked to do longer dialysis and take more fluid off, but that is what the patient wants and is willing to do for today. Hopefully, with that, the potassium as well as blood pressure will come down. It is quite possible we may have to do dialysis again tomorrow depending on what the patient will be willing to do. 2. Back pain: As per primary team. This is an acute on chronic problem and he is getting opiates medicine.
[2020-10-07] MEDS: HEPARIN SOD (PORCINE) 1000 UNIT/ML IV SCH ×2 (12:40→12:41)
--- NOTE | 2020-10-07 13:21 | Hospitalist Progress Note ---
Date of Service October 07, 2020 Assessment & Plan (1) Renal failure: Patient is a 45 yr male with H/O ESRD on HD presents with severe back pain. Intractable back pain Secondary to Disc Prolapse -Lumbar MRI:Central/left paracentral disc protrusion at L4-L5 that results in moderate narrowing of the left lateral recess and mild narrowing of the left neural foramen. Moderate narrowing of the left neural foramen at L5-S1. Mild central canal stenosis at L4-L5. No severe central canal stenosis. No lumbar spine fracture. -Pain control PT OT Consulted orthopedic surgery Hypertensive Urgency Likely due to Volume overload from missing hemodialysis Back pain could be contributing as well Volume status managed through dialysis Continue carvedilol, hydralazine, Terazosin Hyperkalemia Due to ESRD, missing HD Received calcium gluconate, insulin, Nebs Plan for dialysis today Monitor renal function, electrolytes Appreciate Nephrology Input End-stage renal disease On Home hemodialysis Appreciate Nephrology Input Hemodialysis as per nephrology Diabetes type I: HbA1C: 6.4 Continue insulin therapy while hospitalized Monitor BGs CAD Carotid artery stenosis Continue Aspirin, Plavix, atorvastatin, carvedilol Hyperlipidemia: On statin DVT Px: SCDs for now CODE STATUS Full code Disposition Expected discharge home when medically stable. Admission and Anticipated Discharge Date Admission Date: October 07, 2020 Subjective Patient is seen and examined at bedside States having lower back pain radiating to left lower extremity Also states having some associated lower extremity numbness and tingling Admits to missing his dialysis. Discussed with nephrology. Plan for dialysis today. Denies chest pain, shortness breath, dizziness, nausea, abdominal pain Offers no other complaints Review of Systems Review of Systems: All systems reviewed & are unremarkable except as noted in HPI & below Physical Exam Physical Exam: Physical Exam: Vitals signs as noted above General Appearance:Moderately built and nourished, no apparent distress Head: normocephalic, Atraumatic Eyes: normal inspection, EOMI, left eye blindness Neck: supple, Trachea midline Respiratory/Chest: Normal breath sounds, CTA Cardiovascular: S1, S2, No murmur Abdomen/GI:Soft, Non tender, Bowel sounds present Back: Lumbar tenderness Extremities/Musculoskeletal:normal inspection, no edema Neurologic/Psych:AAOX3, grossly no focal neurological deficits Skin: normal color, warm Results & Data Results & Data ([facility]) Vital Signs (Past 12 Hours) Vital Signs Temp Pulse Pulse Resp BP BP Pulse Ox 10/07/20 12:40 93 H 202/100 H 10/07/20 12:20 92 H 191/100 H 10/07/20 11:54 94 H 161/92 H 10/07/20 11:45 36.6 C 94 H 10/07/20 10:42 94 H 10/07/20 10:15 36.6 C 93 H 18 193/112 H 91 10/07/20 06:34 85 20 212/113 H 93 10/07/20 06:24 88 20 206/110 H 93 10/07/20 04:11 87 18 90 10/07/20 03:00 86 191/122 H 92 10/07/20 02:30 84 12 209/117 H 88 L 10/07/20 02:16 84 6 L 93 10/07/20 02:15 84 4 L 191/110 H 90 10/07/20 02:00 83 8 L 87 L 10/07/20 01:35 84 18 Pulse Ox 10/07/20 12:40 10/07/20 12:20 10/07/20 11:54 10/07/20 11:45 10/07/20 10:42 10/07/20 10:15 10/07/20 06:34 10/07/20 06:24 93 10/07/20 04:11 10/07/20 03:00 10/07/20 02:30 10/07/20 02:16 10/07/20 02:15 10/07/20 02:00 10/07/20 01:35 Laboratory Results Short CBC 10/07/20 10/07/20 Range/Units 00:31 07:18 WBC 6.72 5.39 (4.8-10.8) K/uL Hgb 9.8 L 10.0 L (14.0-18.0) g/dL Hct 30.1 L 31.0 L (42-52) % Plt Count 147 135 (130-400) K/uL BMP 10/07/20 10/07/20 00:31 07:18 Sodium 134 L 131 L Potassium 6.1 H* 6.2 H* Chloride 100 97 L Carbon Dioxide 25 21 BUN 75 H 89 H Creatinine 10.90 H* 11.20 H* D Glucose 108 H 153 H Calcium 8.7 9.3 Liver Function 10/07/20 Range/Units 00:31 Total Bilirubin 1.0 (0.2-1) mg/dl AST 5 L (15-37) U/L ALT 11 L (12-78) U/L Alkaline Phosphatase 99 (45-117) U/L Albumin 3.4 (3.4-5.0) gm/dl Urine 10/07/20 Range/Units 04:43 Urine Color Yellow Urine Appearance Clear (Clear) Urine pH 8.0 H (4.5-7.5) Ur Specific [place] 1.020 (1.000-1.030) Urine Protein 3+ H (Negative) Urine Glucose (UA) Trace H (Negative) (1) Renal failure Acute renal failure type: unspecified Chronic kidney disease stage: stage 4 (severe) Renal failure chronicity: acute on chronic Qualified Code(s): N17.9 - Acute kidney failure, unspecified; N18.4 - Chronic kidney disease, stage 4 (severe)
[2020-10-07] MEDS: oxyCODONE/ACETAMINOPHEN 5mg/325mg TAB PO PRN (19:44)
[2020-10-07] MEDS: ATORVASTATIN 40 MG TAB PO SCH (20:50)
[2020-10-07] MEDS: TERAZOSIN HCL 1 MG CAP PO SCH (20:50)
[2020-10-08] MEDS: HYDROmorphone INJ 0.5 MG/0.5 ML SYR IV PRN ×7 (04:04→23:05)
[2020-10-08] MEDS: oxyCODONE/ACETAMINOPHEN 5mg/325mg TAB PO PRN ×3 (06:27→18:05)
--- NOTE | 2020-10-08 06:42 | Electrocardiogram Report ---
Test Reason : Blood Pressure : / mmHG Vent. Rate : 083 BPM Atrial Rate : 083 BPM P-R Int : 212 ms QRS Dur : 088 ms QT Int : 410 ms P-R-T Axes : 037 015 093 degrees QTc Int : 481 ms Sinus rhythm with 1st degree A-V block Septal infarct , age undetermined Abnormal ECG When compared with ECG of 13-FEB-2018 01:21, MD interval has increased Septal infarct is now Present Confirmed by Alberto Bal ([id number]) on 10/08/2020 6:42:46 AM Referred By: REFERRED SELF Confirmed By:Alberto Bal
[2020-10-08 07:56] LABS: Hematocrit (blood only) 31.6 % (42-52); Hemoglobin 10.1 g/dL (14.0-18.0); Mean Corpuscular Hemoglobin 31.8 pg (25-34); Mean Corpuscular Volume 99.4 fL (80-100); Mean Platelet Volume 9.3 fL (7.4-10.4); Platelet Count 140 K/uL (130-400); RDW Coefficient of Variation 16.1 % (11.5-14.5); RDW Standard Deviation 58.2 fL (36.4-46.3); Red Blood Count 3.18 M/uL (4.7-6.1); White Blood Count 10.33 K/uL (4.8-10.8)
[2020-10-08] MEDS: INSULIN ASPART 100 UNITS/ML 3 ML PEN SC SCH ×4 (08:07→22:16)
[2020-10-08] MEDS: carvediloL 25 MG TAB PO SCH ×2 (08:10→20:30)
[2020-10-08] MEDS: ASPIRIN 81 MG ECTAB PO SCH (08:10)
[2020-10-08] MEDS: hydrALAZINE TAB 50 MG TAB PO SCH ×4 (08:10→19:56)
[2020-10-08] MEDS: CHOLECALCIFEROL 1,000 UNITS 25 MCG TAB PO SCH (08:11)
[2020-10-08] MEDS: CLOPIDOGREL BISULFATE 75 MG TAB PO SCH (08:11)
[2020-10-08] MEDS: FUROSEMIDE 40 MG TAB PO SCH ×2 (08:11→20:29)
[2020-10-08] MEDS: PANTOprazole 40 MG TAB PO SCH (08:11)
[2020-10-08] MEDS: CALCIUM ACETATE 667 MG CAP/TAB PO SCH ×3 (08:12→17:15)
[2020-10-08] MEDS: INSULIN GLARGINE SOLOSTAR 100 UNITS/ML 3 ML PEN SC SCH (08:12)
[2020-10-08 08:27] LABS: BUN Creatinine Ratio 7.8 (10-20); Calcium 9.3 mg/dl (8.5-10.1); Creatinine Clr Calc Pharmacy 14.1 ml/min; Est GFR (African American) 8.5 ml/min; Est GFR (Non-African American) 7.4 ml/min; Potassium 5.3 mmol/L (3.5-5.1)
--- NOTE | 2020-10-08 10:47 | Orthopedic Consultation ---
Date of Consultation October 08, 2020 Assessment & Plan (1) Acute left lumbar radiculopathy: Patient is had acute mild left radicular complaints. The L4-5 disc fusion is likely the causative reason. Given his medical history and current condition I would not recommend acute surgical intervention. Recommended consultation with [facility] pain management group for consideration of an epidural injection. He should be mobilized with physical therapy and Occupational Therapy. And pain control per his primary service. History of Present Illness Attending Physician: Felipe Oakes MD History of Present Illness Patient is a 45-year-old male who has history segment for previous laminectomy through neurosurgery. He had acute onset of pain radiating down the left leg this past Sunday. He went to the emergency room and was discharged home. When he ran out of pain medication he returned to the emergency room and was admitted to medicine on Sunday. He has undergone an updated MRI. He has been unable to walk as it creates too much discomfort. He is not having much in the way of lower back pain. He has not had any current treatments other than pain medication. He has not been seen by physical therapy as of yet. He denies any other numbness, tingling, or paresthesias. Allergies Allergy/AdvReac Type Severity Reaction Status Date / Time benzonatate Allergy Unknown told not Verified 10/07/20 01:02 to take ibuprofen Allergy Unknown told not Verified 10/07/20 01:02 to take oxycodone AdvReac Intermediate Confusion Verified 10/07/20 01:02 FRED Inhibitors AdvReac Unknown Unknown Verified 10/07/20 01:02 Home Medications Medication Instructions Recorded Confirmed Type atorvastatin 40 mg PO HS 02/13/18 10/07/20 History carvedilol 50 mg PO BID 02/13/18 10/07/20 History clopidogrel 75 mg PO DAILY 02/13/18 10/07/20 History furosemide [Lasix] 40 mg PO BID 02/13/18 10/07/20 History insulin aspart U-100 [Novolog 0 unit SUBCUT DIRECTED 02/13/18 10/07/20 History Flexpen U-100 Insulin] nitroglycerin [Nitrostat] 0.4 mg SUBLINGUAL DIRECTED PRN 02/13/18 10/07/20 History omeprazole 20 mg PO QAM 02/13/18 10/07/20 History terazosin 4 mg PO HS 02/13/18 10/07/20 History hydralazine 50 mg PO BID #0 06/12/18 10/07/20 History aspirin 81 mg PO DAILY 06/10/20 10/07/20 History cholecalciferol (vitamin D3) 125 mcg PO DAILY 06/10/20 10/07/20 History [Vitamin D3] gabapentin 200 mg PO Q OTHER DAY 06/10/20 10/07/20 History ropinirole 0.25 mg PO Q OTHER DAY 06/10/20 10/07/20 History oxycodone-acetaminophen [Percocet] 1 tab PO Q6H PRN #15 tab 08/20/20 10/07/20 Rx calcium acetate(phosphat bind) 667 mg PO TIDM 10/07/20 10/07/20 History tramadol 50 mg PO Q6 PRN 10/07/20 10/07/20 History Patient History Medical History (Updated 10/02/20 @ 03:35 by Keila Carolina PA-C) Bilateral carotid artery stenosis Monitored with Carotid Doppler q6 months. 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 NO HISTORY OF DIALYSIS. Coronary artery disease Diabetes mellitus, insulin-dependent (IDDM or type I) Dyslipidemia GERD (gastroesophageal reflux disease) Gout Hypertension Hypertensive urgency Orthostatic hypotension Presence of artificial eye LEFT Surgical History History of discectomy LUMBAR History of eye surgery MULTIPLE EYE SURGERIES S/T COMPLICATIONS OF DIABETES INCLUDING DETACHED RETINA, DSEAK PROCEDURES, AND ENUCLEATION OF LEFT EYE Status post cardiac catheterization Status post coronary artery stent placement 2009, NO HX OF [place]. [facility]. Family History Other Cancer Diabetes Gallbladder disease Heart disease Hypertension Social History Smoking Status: Never smoker Tobacco Type: Smokeless Tobacco (Dip or Chew) Second Hand Exposure: No; Do You Dip or Chew Tobacco: Yes; Tobacco Cessation Education Requested by Patient: No Hx Alcohol Use: No Hx Substance Use: No Preferred Language: Welsh Communication Ability: Effective Visual Impairment: Blindness Mortgage Processing Clerk Required: No Beliefs That Will Affect Care: None marital status: Current Living Situation: Spouse current occupational status: disabled Other Information That Helps Us Care for You: No Feels Safe at Home: Yes Safety Concerns: Feels Safe At This Time Assistive Devices: None Physical Exam Physical Exam: The physical exam is limited secondary to the patient's pain. He is able to lift his heel up off the bed. He can resist dorsiflexion and p lantar flexion. He is able to roll from side to side without difficulties. He has full range of motion of the hips and knees. His abdomen soft nontender his calves are supple nontender. Results & Data ([facility]) Vital Signs (Past 12 Hours) Vital Signs Temp Pulse Pulse Pulse Resp BP Pulse Ox 10/08/20 08:09 36.8 C 88 18 173/102 H 94 10/08/20 07:17 91 H 10/08/20 04:08 36.8 C 88 16 158/97 H 93 10/07/20 23:17 36.8 C 93 H 18 161/85 H 93 Diagnostic Findings MRI of the lumbar spine performed recently is available for review. This reveals degenerative disc disease at L4-5 and L5-S1. L4-5 there is a left paracentral disc protrusion extending towards the left lateral recess creating moderate narrowing. There is a broad basis protrusion L5-S1 producing mild lateral recess stenosis bilaterally.
--- NOTE | 2020-10-08 13:11 | Nephrology Progress Note ---
Date of Service October 08, 2020 Assessment & Plan Admission and Anticipated Discharge Date Admission Date: October 07, 2020 Subjective Ongoing back pain. BP high. Dialysis yesterday. GENERAL: Young white male who is somewhat obese. He is not in overt respiratory distress, but he seems to be uncomfortable because of the back pain. VITAL SIGNS: Most recent vital signs show blood pressure 193/112, pulse 94, temperature 36.6, 91% on room air. HEENT: Mucous membranes moist. NECK: Supple. No jugular venous distention. CHEST: Bilaterally clear to auscultation. CARDIOVASCULAR: S1, S2 regular. ABDOMEN: Soft, nontender. EXTREMITIES: Show trace edema. NEUROLOGIC: He is awake, alert, oriented x3. Normal speech. Moving all 4 extremities. No obvious focal deficit noted. LABORATORIES: K 5.3 creat 7+ ASSESSMENT AND PLAN: A 45-year-old male with longstanding type 1 diabetes with end-stage renal disease, on home hemodialysis, now admitted with severe intractable back pain. As a result of severe back pain, he has missed dialysis in the last few days and now has hyperkalemia and high creatinine as well as some degree of fluid overload with hypertensive crisis. 1. End-stage renal disease: We will do dialysis tomorrow. We will do for 4 hr and take about 2.5 kilo fluid. No dialysis today. Patient does like to dictate a lot of his treatment decisions. 2. Back pain: As per primary team. This is an acute on chronic problem and he is getting opiates medicine. Results & Data ([facility]) Vital Signs (Past 12 Hours) Vital Signs Temp Pulse Pulse Resp BP Pulse Ox 10/08/20 12:00 36.6 C 90 20 180/101 H 96 10/08/20 08:09 36.8 C 88 18 173/102 H 94 10/08/20 07:17 91 H 10/08/20 04:08 36.8 C 88 16 158/97 H 93
--- NOTE | 2020-10-08 17:22 | Hospitalist Progress Note ---
Date of Service October 08, 2020 Assessment & Plan (1) Renal failure: Patient is a 45 yr male with H/O ESRD on HD presents with severe back pain. Acute lumbar radiculopathy Secondary to Disc Prolapse -Lumbar MRI:Central/left paracentral disc protrusion at L4-L5 that results in moderate narrowing of the left lateral recess and mild narrowing of the left neural foramen. Moderate narrowing of the left neural foramen at L5-S1. Mild central canal stenosis at L4-L5. No severe central canal stenosis. No lumbar spine fracture. -Pain control PT OT Appreciate orthopedic Input We will consult pain management for possible epidural injection Hypertensive Urgency Likely due to Volume overload from missing hemodialysis Back pain could be contributing as well Volume status managed through dialysis Continue carvedilol, hydralazine, Terazosin Will increase hydralazine to 50 mg 3 times daily Hyperkalemia Due to ESRD, missing HD Received calcium gluconate, insulin, Nebs Had dialysis yesterday Monitor renal function, electrolytes Appreciate Nephrology Input Potassium levels: 6.2>>5.3 End-stage renal disease On Home hemodialysis Appreciate Nephrology Input Hemodialysis as per nephrology Diabetes type I: HbA1C: 6.4 Continue insulin therapy while hospitalized Monitor BGs CAD Carotid artery stenosis Continue Aspirin, Plavix, atorvastatin, carvedilol Hyperlipidemia: On statin DVT Px: SCDs for now CODE STATUS Full code Disposition Expected discharge home when medically stable. Admission and Anticipated Discharge Date Admission Date: October 07, 2020 Subjective Patient is seen and examined at bedside Persistent lower back pain No new complaints Denies chest pain, shortness breath, dizziness, nausea, abdominal pain Review of Systems Review of Systems: All systems reviewed & are unremarkable except as noted in HPI & below Physical Exam Physical Exam: Physical Exam: Vitals signs as noted above General Appearance:Moderately built and nourished, no apparent distress Head: normocephalic, Atraumatic Eyes: normal inspection, EOMI, left eye blindness Neck: supple, Trachea midline Respiratory/Chest: Normal breath sounds, CTA Cardiovascular: S1, S2, No murmur Abdomen/GI:Soft, Non tender, Bowel sounds present Back: Lumbar tenderness Extremities/Musculoskeletal:normal inspection, no edema Neurologic/Psych:AAOX3, grossly no focal neurological deficits Skin: normal color, warm Results & Data Results & Data ([facility]) Vital Signs (Past 12 Hours) Vital Signs Temp Pulse Pulse Resp BP Pulse Ox 10/08/20 15:01 87 10/08/20 13:40 165/102 H 10/08/20 12:00 36.6 C 90 20 180/101 H 96 10/08/20 08:09 36.8 C 88 18 173/102 H 94 10/08/20 07:17 91 H Laboratory Results Short CBC 10/08/20 Range/Units 07:18 WBC 10.33 (4.8-10.8) K/uL Hgb 10.1 L (14.0-18.0) g/dL Hct 31.6 L (42-52) % Plt Count 140 (130-400) K/uL BMP 10/08/20 07:18 Sodium 132 L Potassium 5.3 H Chloride 97 L Carbon Dioxide 25 BUN 61 H Creatinine 7.87 H* D Glucose 196 H Calcium 9.3 (1) Renal failure Acute renal failure type: unspecified Chronic kidney disease stage: stage 4 (severe) Renal failure chronicity: acute on chronic Qualified Code(s): N17.9 - Acute kidney failure, unspecified; N18.4 - Chronic kidney disease, stage 4 (severe)
[2020-10-08] MEDS: ACETAMINOPHEN 325 MG TAB PO PRN (19:56)
[2020-10-08] MEDS ORDERED: CALCIUM CARBONATE 500 MG CHEWABLE TAB PO PRN (20:11)
[2020-10-08] MEDS: traMADol HCL 50 MG TABLET PO PRN (20:28)
[2020-10-08] MEDS: ATORVASTATIN 40 MG TAB PO SCH (20:29)
[2020-10-08] MEDS: TERAZOSIN HCL 1 MG CAP PO SCH (20:31)
[2020-10-09] MEDS: oxyCODONE/ACETAMINOPHEN 5mg/325mg TAB PO PRN ×4 (00:50→22:42)
[2020-10-09] MEDS: traMADol HCL 50 MG TABLET PO PRN ×2 (03:35→20:29)
[2020-10-09] MEDS: HYDROmorphone INJ 0.5 MG/0.5 ML SYR IV PRN ×6 (03:36→21:58)
[2020-10-09 06:33] LABS: Hematocrit (blood only) 33.7 % (42-52); Hemoglobin 10.7 g/dL (14.0-18.0); Mean Corpuscular Hgb Conc 31.8 g/dL (32-36); Mean Corpuscular Volume 100.9 fL (80-100); Mean Platelet Volume 9.3 fL (7.4-10.4); Platelet Count 137 K/uL (130-400); RDW Standard Deviation 58.4 fL (36.4-46.3); Red Blood Count 3.34 M/uL (4.7-6.1); White Blood Count 8.87 K/uL (4.8-10.8)
[2020-10-09] MEDS ORDERED: SODIUM CHLORIDE 0.9% 1000ML 1,000 ML IV PRN (07:00)
[2020-10-09] MEDS ORDERED: EPOETIN ALFA 10,000 UNITS/ML VIAL IV ONE (07:00)
[2020-10-09 07:13] LABS: BUN Creatinine Ratio 7.5 (10-20); Calcium 8.7 mg/dl (8.5-10.1); Creatinine Clr Calc Pharmacy 11.9 ml/min; Est GFR (African American) 6.9 ml/min; Est GFR (Non-African American) 5.9 ml/min; Magnesium 2.3 mg/dl (1.8-2.4); Potassium 5.3 mmol/L (3.5-5.1)
[2020-10-09] MEDS: CALCIUM ACETATE 667 MG CAP/TAB PO SCH ×3 (08:33→18:12)
[2020-10-09] MEDS: carvediloL 25 MG TAB PO SCH ×2 (08:33→20:30)
[2020-10-09] MEDS: hydrALAZINE TAB 50 MG TAB PO SCH ×3 (08:33→20:29)
[2020-10-09] MEDS: PANTOprazole 40 MG TAB PO SCH (08:34)
[2020-10-09] MEDS: CLOPIDOGREL BISULFATE 75 MG TAB PO SCH (08:34)
[2020-10-09] MEDS: CHOLECALCIFEROL 1,000 UNITS 25 MCG TAB PO SCH (08:34)
[2020-10-09] MEDS: ASPIRIN 81 MG ECTAB PO SCH (08:34)
[2020-10-09] MEDS: INSULIN GLARGINE SOLOSTAR 100 UNITS/ML 3 ML PEN SC SCH (08:35)
[2020-10-09] MEDS: FUROSEMIDE 40 MG TAB PO SCH ×2 (08:35→20:30)
[2020-10-09] MEDS: INSULIN ASPART 100 UNITS/ML 3 ML PEN SC SCH ×4 (08:35→22:05)
--- NOTE | 2020-10-09 13:58 | Nephrology Progress Note ---
Date of Service October 09, 2020 Assessment & Plan Admission and Anticipated Discharge Date Admission Date: October 07, 2020 Subjective Seen in dialysis. tolerating fine. Ongoing back pain. BP high. GENERAL: Young white male who is somewhat obese. He is not in overt respiratory distress, but he seems to be uncomfortable because of the back pain. HEENT: Mucous membranes moist. NECK: Supple. No jugular venous distention. CHEST: Bilaterally clear to auscultation. CARDIOVASCULAR: S1, S2 regular. ABDOMEN: Soft, nontender. EXTREMITIES: Show trace edema. NEUROLOGIC: He is awake, alert, oriented x3. Normal speech. Moving all 4 extremities. No obvious focal deficit noted. LABORATORIES: reviewed. ASSESSMENT AND PLAN: A 45-year-old male with longstanding type 1 diabetes with end-stage renal disease, on home hemodialysis, now admitted with severe intractable back pain. As a result of severe back pain, he has missed dialysis in the last few days and now has hyperkalemia and high creatinine as well as some degree of fluid overload with hypertensive crisis. 1. End-stage renal disease: We will do dialysis as Rxed. 4hrs 2k bath and take 2.5 kilo off. Patient does like to dictate a lot of his treatment decisions. 2. Back pain: As per primary team. This is an acute on chronic problem and he is getting opiates medicine. He is somewhat upset about this Results & Data ([facility]) Vital Signs (Past 12 Hours) Vital Signs Temp Pulse Pulse Resp BP BP Pulse Ox 10/09/20 13:20 70 182/68 H 10/09/20 13:00 71 155/61 H 10/09/20 12:40 69 193/91 H 10/09/20 12:20 70 177/82 H 10/09/20 12:00 69 180/81 H 10/09/20 11:40 70 149/55 H 10/09/20 11:20 70 164/48 H 10/09/20 11:00 72 171/65 H 10/09/20 10:40 71 187/84 H 10/09/20 10:20 69 136/93 10/09/20 10:03 36.6 C 71 10/09/20 07:37 36.6 C 87 20 183/105 H 94 10/09/20 07:36 86 10/09/20 06:00 10/09/20 03:31 36.4 C L 85 22 182/102 H 96 Pulse Ox 10/09/20 13:20 10/09/20 13:00 10/09/20 12:40 10/09/20 12:20 10/09/20 12:00 10/09/20 11:40 10/09/20 11:20 10/09/20 11:00 10/09/20 10:40 10/09/20 10:20 10/09/20 10:03 10/09/20 07:37 10/09/20 07:36 10/09/20 06:00 97 10/09/20 03:31
--- NOTE | 2020-10-09 14:16 | Hospitalist Progress Note ---
Date of Service October 09, 2020 Assessment & Plan (1) Renal failure: Patient is a 45 yr male with H/O ESRD on HD presents with severe back pain. Acute lumbar radiculopathy Secondary to Disc Prolapse -Lumbar MRI:Central/left paracentral disc protrusion at L4-L5 that results in moderate narrowing of the left lateral recess and mild narrowing of the left neural foramen. Moderate narrowing of the left neural foramen at L5-S1. Mild central canal stenosis at L4-L5. No severe central canal stenosis. No lumbar spine fracture. -Pain control PT OT Appreciate orthopedic Input We will consult pain management for possible epidural injection Hypertensive Urgency Likely due to Volume overload from missing hemodialysis Back pain could be contributing as well Volume status managed through dialysis Continue carvedilol, hydralazine, Terazosin Will increase hydralazine to 50 mg 3 times daily Hyperkalemia Due to ESRD, missing HD Received calcium gluconate, insulin, Nebs Had dialysis yesterday Monitor renal function, electrolytes Appreciate Nephrology Input Potassium levels: 6.2>>5.3 End-stage renal disease On Home hemodialysis Appreciate Nephrology Input Hemodialysis as per nephrology Diabetes type I: HbA1C: 6.4 Continue insulin therapy while hospitalized Monitor BGs CAD Carotid artery stenosis Continue Aspirin, Plavix, atorvastatin, carvedilol Hyperlipidemia: On statin DVT Px: SCDs for now CODE STATUS Full code Disposition Expected discharge home when medically stable. Admission and Anticipated Discharge Date Admission Date: October 07, 2020 Subjective Patient is seen and examined at bedside Persistent lower back pain No new complaints Denies chest pain, shortness breath, dizziness, nausea, abdominal pain Results & Data Results & Data ([facility]) Vital Signs (Past 12 Hours) Vital Signs Temp Pulse Pulse Resp BP BP Pulse Ox 10/09/20 13:55 36.6 C 76 181/80 H 10/09/20 13:20 70 182/68 H 10/09/20 13:00 71 155/61 H 10/09/20 12:40 69 193/91 H 10/09/20 12:20 70 177/82 H 10/09/20 12:00 69 180/81 H 10/09/20 11:40 70 149/55 H 10/09/20 11:20 70 164/48 H 10/09/20 11:00 72 171/65 H 10/09/20 10:40 71 187/84 H 10/09/20 10:20 69 136/93 10/09/20 10:03 36.6 C 71 10/09/20 07:37 36.6 C 87 20 183/105 H 94 10/09/20 07:36 86 10/09/20 06:00 10/09/20 03:31 36.4 C L 85 22 182/102 H 96 Pulse Ox 10/09/20 13:55 10/09/20 13:20 10/09/20 13:00 10/09/20 12:40 10/09/20 12:20 10/09/20 12:00 10/09/20 11:40 10/09/20 11:20 10/09/20 11:00 10/09/20 10:40 10/09/20 10:20 10/09/20 10:03 10/09/20 07:37 10/09/20 07:36 10/09/20 06:00 97 10/09/20 03:31 (1) Renal failure Acute renal failure type: unspecified Chronic kidney disease stage: stage 4 (severe) Renal failure chronicity: acute on chronic Qualified Code(s): N17.9 - Acute kidney failure, unspecified; N18.4 - Chronic kidney disease, stage 4 (severe)
[2020-10-09] MEDS: ACETAMINOPHEN 325 MG TAB PO PRN (20:28)
[2020-10-09] MEDS: ATORVASTATIN 40 MG TAB PO SCH (20:30)
[2020-10-09] MEDS: TERAZOSIN HCL 1 MG CAP PO SCH (20:31)
[2020-10-10] MEDS: HYDROmorphone INJ 0.5 MG/0.5 ML SYR IV PRN ×6 (01:03→21:26)
[2020-10-10] MEDS ORDERED: hydrALAZINE HCL 20 MG/ML VIAL IV STA (02:13)
[2020-10-10] MEDS: traMADol HCL 50 MG TABLET PO PRN ×3 (03:20→15:36)
[2020-10-10] MEDS: oxyCODONE/ACETAMINOPHEN 5mg/325mg TAB PO PRN ×3 (05:44→19:46)
[2020-10-10] MEDS: PANTOprazole 40 MG TAB PO SCH (07:49)
[2020-10-10] MEDS: carvediloL 25 MG TAB PO SCH ×2 (07:50→21:27)
[2020-10-10] MEDS: FUROSEMIDE 40 MG TAB PO SCH ×2 (07:50→21:28)
[2020-10-10] MEDS: CHOLECALCIFEROL 1,000 UNITS 25 MCG TAB PO SCH (07:50)
[2020-10-10] MEDS: hydrALAZINE TAB 50 MG TAB PO SCH ×3 (07:51→21:28)
[2020-10-10] MEDS: INSULIN ASPART 100 UNITS/ML 3 ML PEN SC SCH ×4 (09:13→21:47)
[2020-10-10] MEDS: INSULIN GLARGINE SOLOSTAR 100 UNITS/ML 3 ML PEN SC SCH (09:14)
[2020-10-10] MEDS: CALCIUM ACETATE 667 MG CAP/TAB PO SCH ×3 (09:14→18:31)
[2020-10-10] MEDS: ATORVASTATIN 40 MG TAB PO SCH (21:28)
[2020-10-10] MEDS: TERAZOSIN HCL 1 MG CAP PO SCH (21:29)
--- NOTE | 2020-10-11 00:17 | Hospitalist Progress Note ---
Date of Service October 11, 2020 Assessment & Plan (1) Renal failure: Patient is a 45 yr male with H/O ESRD on HD presents with severe back pain. Acute lumbar radiculopathy Secondary to Disc Prolapse -Lumbar MRI:Central/left paracentral disc protrusion at L4-L5 that results in moderate narrowing of the left lateral recess and mild narrowing of the left neural foramen. Moderate narrowing of the left neural foramen at L5-S1. Mild central canal stenosis at L4-L5. No severe central canal stenosis. No lumbar spine fracture. worried that he will be discharged home with out adressing his back pain does not want to have steroid shot as a temporizing effect wants definitive tx with spinal procedure , few yrs back he had similar symptoms on right , got significant improvement after spinal procedure pain management and orthopedics consulted PO aspirin and Plavix kept on hold if spinal epidularal steroid injection needed for symptom control Hypertensive Urgency Likely due to Volume overload from missing hemodialysis Back pain could be contributing as well Volume status managed through dialysis Continue carvedilol, hydralazine, Terazosin increased hydralazine to 50 mg 3 times daily Hyperkalemia resolved ESRD , missed dialysis on admission Received calcium gluconate, insulin, Nebs in ER K level normalized after continued dialysis Appreciate Nephrology Input End-stage renal disease On Home hemodialysis Appreciate Nephrology Input Hemodialysis as per nephrology Diabetes type I: HbA1C: 6.4 Continue insulin therapy while hospitalized Monitor BGs CAD Carotid artery stenosis Continue Aspirin, Plavix, atorvastatin, carvedilol Hyperlipidemia: On statin DVT Px: SCDs for now CODE STATUS Full code Disposition Expected discharge home when medically stable. /back pain better controlled Admission and Anticipated Discharge Date Admission Date: October 07, 2020 Subjective Patient is seen and examined at bedside complains of intractable back pain with radiation /radicular pain on left leg and knee very uncomfortable worried that he will be discharged home with out adressing his back pain does not want to have steroid shot as a temporizing effect wants definitive tx with spinal procedure , few yrs back he had similar symptoms on right , got significant improvement after spinal procedure no complain of SOB , no fever or chills , Review of Systems Review of Systems: All systems reviewed & are unremarkable except as noted in Subjective Physical Exam Physical Exam: Physical exam: General: No acute distress, alert awake oriented x3 HEENT: PERRLA, EOMI, Heart: Regular S1-S2, no carotid bruit, no JVD, no lower extremity edema Lungs: Clear to auscultate, no wheeze or rales Abdomen: Soft nontender, no organomegaly Extremity: No cyanosis, no deformity, normal strength 5 out of 5 with upper and lower Neuro: No focal neurological deficit normal speech, normal visual field, Motor strength : normal both upper and lower extremity, sensation intact Psych: Alert awake oriented x3, normal affect Results & Data Results & Data ([facility]) Vital Signs (Past 12 Hours) Vital Signs Temp Pulse Resp BP Pulse Ox 10/10/20 22:28 36.8 C 90 16 181/104 H 93 10/10/20 21:11 91 H 180/100 H 10/10/20 14:27 36.9 C 91 H 16 178/90 H 94 10/10/20 13:00 90 177/99 H (1) Renal failure Acute renal failure type: unspecified Chronic kidney disease stage: stage 4 (severe) Renal failure chronicity: acute on chronic Qualified Code(s): N17.9 - Acute kidney failure, unspecified; N18.4 - Chronic kidney disease, stage 4 (severe)
[2020-10-11] MEDS ORDERED: cloNIDine HCL 0.1 MG TAB PO ONE (00:43)
[2020-10-11] MEDS ORDERED: hydrALAZINE HCL 20 MG/ML VIAL IV ONE ×2 (01:12→04:00)
[2020-10-11] MEDS: HYDROmorphone INJ 0.5 MG/0.5 ML SYR IV PRN ×4 (01:17→20:02)
[2020-10-11] MEDS: oxyCODONE/ACETAMINOPHEN 5mg/325mg TAB PO PRN ×2 (02:41→14:21)
--- NOTE | 2020-10-11 08:41 | Pain Management Consultation ---
Date of Consultation October 11, 2020 Assessment & Plan (1) Acute left lumbar radiculopathy: (2) Renal failure: Acute renal failure type: unspecified Chronic kidney disease stage: stage 4 (severe) Renal failure chronicity: acute on chronic Qualified Code(s): N17.9 - Acute kidney failure, unspecified; N18.4 - Chronic kidney disease, stage 4 (severe) (3) Diabetes type 1, uncontrolled: (4) Coronary artery disease: (5) Status post coronary artery stent placement: * Patient is a poor candidate for interventional treatment due to his end- stage renal disease on hemodialysis and ongoing clopidogrel therapy so therefore would defer lumbar LAUREANO * Recommend a Medrol Dosepak if no contraindication at this time * Will initiate baclofen 10 mg 3 times daily * Patient is requesting evaluation with his prior surgeon-Dr. Mina Sagastume at [facility]. Outpatient referral will be initiated by pain clinic. History of Present Illness Reason for Consultation: Left lower extremity radicular pain Attending Physician: Karla Mckeon MD History of Present Illness Mr. Gerard is a 45-year-old insulin-dependent with end-stage renal disease on hemodialysis on chronic clopidogrel therapy due to history of CAD with stent placement who presents for evaluation of acute left lower extremity radicular pain. The patient reported onset of his pain approximately 10 days ago without known injury. The patient performs home hemodialysis 5 days/week. Patient reports that his pain is 100% radicular traveling in the left lower extremity to the level of the foot which appears to be in a predominant L5 distribution based on description in the posterior lateral thigh and lateral lower extremity to the lateral dorsal foot. He describes sharp shooting pains with paresthesia. The patient reports he is able to find a comfortable position lying on his right side with a pillow between his knees. His pain ranges between 3/10 at its best and 8/10 at its worst. His pain is aggravated with any movement and reports difficulty ambulating due to the discomfort. Patient denies any bowel or mercedes dder incontinence or saddle anesthesias. He is dealing with some constipation at this time which is an intermittent problem chronically. He is finding some moderate benefit from use of Percocet. He does have prior history of lumbar spine surgery with Dr. Mina Sagastume in [facility] with success. The patient reports prior history gabapentin without benefit. He has tolerated steroid Dosepak in the past other than blood glucose elevations. Patient denies fevers, chills, night sweats or other constitutional complaints at this time. Plan of care discussed with Dr. Sandoval. Pain Assessment Full Body Front + Back: 1. Predominant L5 distribution radicular pain Pain scale - at its best (0-10): 3 Pain scale - at its worst (0-10): 8 Allergies Allergy/AdvReac Type Severity Reaction Status Date / Time benzonatate Allergy Unknown told not Verified 10/07/20 01:02 to take ibuprofen Allergy Unknown told not Verified 10/07/20 01:02 to take oxycodone AdvReac Intermediate Confusion Verified 10/07/20 01:02 FRED Inhibitors AdvReac Unknown Unknown Verified 10/07/20 01:02 Home Medications Medication Instructions Recorded Confirmed Type atorvastatin 40 mg PO HS 02/13/18 10/07/20 History carvedilol 50 mg PO BID 02/13/18 10/07/20 History clopidogrel 75 mg PO DAILY 02/13/18 10/07/20 History furosemide [Lasix] 40 mg PO BID 02/13/18 10/07/20 History insulin aspart U-100 [Novolog 0 unit SUBCUT DIRECTED 02/13/18 10/07/20 History Flexpen U-100 Insulin] nitroglycerin [Nitrostat] 0.4 mg SUBLINGUAL DIRECTED PRN 02/13/18 10/07/20 History omeprazole 20 mg PO QAM 02/13/18 10/07/20 History terazosin 4 mg PO HS 02/13/18 10/07/20 History hydralazine 50 mg PO BID #0 06/12/18 10/07/20 History aspirin 81 mg PO DAILY 06/10/20 10/07/20 History cholecalciferol (vitamin D3) 125 mcg PO DAILY 06/10/20 10/07/20 History [Vitamin D3] gabapentin 200 mg PO Q OTHER DAY 06/10/20 10/07/20 History ropinirole 0.25 mg PO Q OTHER DAY 06/10/20 10/07/20 History oxycodone-acetaminophen [Percocet] 1 tab PO Q6H PRN #15 tab 08/20/20 10/07/20 Rx calcium acetate(phosphat bind) 667 mg PO TIDM 10/07/20 10/07/20 History tramadol 50 mg PO Q6 PRN 10/07/20 10/07/20 History Pain History Pain Intensity Pain scale - at its best (0-10): 3 Pain scale - at its worst (0-10): 8 Patient History Medical History (Updated 10/02/20 @ 03:35 by Keila Carolina PA-C) Bilateral carotid artery stenosis Monitored with Carotid Doppler q6 months. 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 NO HISTORY OF DIALYSIS. Coronary artery disease Diabetes mellitus, insulin-dependent (IDDM or type I) Dyslipidemia GERD (gastroesophageal reflux disease) Gout Hypertension Hypertensive urgency Orthostatic hypotension Presence of artificial eye LEFT Surgical History History of discectomy LUMBAR History of eye surgery MULTIPLE EYE SURGERIES S/T COMPLICATIONS OF DIABETES INCLUDING DETACHED RETINA, DSEAK PROCEDURES, AND ENUCLEATION OF LEFT EYE Status post cardiac catheterization Status post coronary artery stent placement 2009, NO HX OF [place]. Family History Other Cancer Diabetes Gallbladder disease Heart disease Hypertension Social History Smoking Status: Never smoker Tobacco Type: Smokeless Tobacco (Dip or Chew) Second Hand Exposure: No; Do You Dip or Chew Tobacco: Yes; Tobacco Cessation Education Requested by Patient: No Hx Alcohol Use: No Hx Substance Use: No Preferred Language: Yakut Communication Ability: Effective Visual Impairment: Blindness Manager Instrumentation Required: No Beliefs That Will Affect Care: None marital status: Current Living Situation: Spouse current occupational status: disabled Other Information That Helps Us Care for You: No Feels Safe at Home: Yes Safety Concerns: Feels Safe At This Time Assistive Devices: Prosthesis Physical Exam Physical Exam: General: Patient lying in the right lateral decubitus position with a pillow between his knees in no acute distress. Speech and thought process appropriate. Mood and affect appropriate. Cognition intact. Head: Normocephalic and atraumatic. ENT: No evidence of nasal or oral mucosal lesions. Mucous membranes are moist. Eyes: Pupils equal round reactive to light. Neck: Supple without adenopathy and full range of motion. Abdomen: Soft and nondistended. No organomegaly. Bowel sounds active. Back/spine: Loss of lumbar lordosis. Well-healed midline incision in the lower lumbar spine. Nontender over the midline. No focal facet or SI joint tenderness. Nontender in the paravertebral musculature. Patient is tender throughout the left gluteal region to direct outpatient. Lower extremities: SLR was positive reproducing radicular pain. Patient with guarded movement. Strength testing was 4/5 on the left with dorsi and plantar flexion with some guarding. Strength was 5/5 on the right with dorsi and plantar flexion. Patient has diminished sensation in nondermatomal pattern i nvolving the foot and ankle region bilaterally-history of diabetic neuropathy. Patient has diminished sensation to sharp and dull on the left in an L5 distribution when compared to the right below the knee. Neurologic: Cranial nerves grossly intact. Ambulatory function not witnessed. Results (Pain Clinic) Diagnostic Review MRI: non enhanced and reports reviewed MRI Findings: [facility], [phone] Magnetic Resonance Report Patient: LALITA GERARD Date: 10/07/20MR#: [id number]: 659 LAZ RDAcct ID:[id number]: Date: 1975[facility] Zip: [place] [id number]: [id number]: EDINPSex: MRoom/Bed: [facility] 1[facility]Att Phy: Felipe Oakes, MDDiagnosis: BACK PAINPri Phy: Misti Glover CRNPService Date: 10/07/20[facility] Phy:Interpreting Phy: Fabio Dominguez MDAdmit Phy: Mihir Humphrey MD Ordering Phy: Mark Green MD cc: ~ MRI OF THE LUMBAR SPINE WITHOUT CONTRAST CLINICAL HISTORY: Low back pain. COMPARISON STUDY: Lumbar spine MRI January 31, 2015. Lumbar spine CT October 02, 2020. TECHNIQUE: Utilizing a 1.5 Mulu magnet and dedicated coil, multiplanar, multiecho imaging of the lumbar spine was performed without IV contrast. FINDINGS: For purposes of numbering on this exam, the L5-S1 disc space is assigned to axial image 23 of 25. Alignment of the lumbar spine is anatomic. Vertebral body heights are maintained. No marrow edema or suspicious marrow replacement. There is no intracanalicular mass or fluid collection. This exam is compromised by motion artifact. Mild edema within the paraspinal musculature is noted. Prominent retroperitoneal lymph nodes are better depicted on CT of October 02, 2020. Moderate multilevel facet arthrosis is present. There is mild disc space narrowing with osteophytosis at L5-S1. L1-2: The central canal and neural foramen are patent. L2-3: The central canal and neural foramen are patent. L3-4: The central canal and neural foramen are patent. L4-5: There is a central/left paracentral disc protrusion. There is moderate narrowing of the left lateral recess and mild narrowing of the central canal. There is mild narrowing of the left neural foramen. Right neural foramen is patent. L5-S1: There is disc bulge. Facet arthrosis is present. The central canal is patent. There is mild narrowing of the left lateral recess. Moderate narrowing of the left neural foramen is noted. Right neural foramen is patent. IMPRESSION: 1. Central/left paracentral disc protrusion at L4-L5 that results in moderate narrowing of the left lateral recess and mild narrowing of the left neural foramen. 2. Moderate narrowing of the left neural foramen at L5-S1. 3. Mild central canal stenosis at L4-L5. No severe central canal stenosis. 4. No lumbar spine fracture. ACT 112: Negative or not required by law. Electronically signed by: Fabio Dominguez M.D. 10/07/2020 9:00 AM Dictated: 10/07/20 0852Transcribed: 10/07/20 0852 Previous Records Review Previous Records: personally reviewed by me
[2020-10-11] MEDS ORDERED: methylPREDNISolone 4 MG TAB, 6 DAY TAPER PO SCH (09:15)
[2020-10-11] MEDS: CHOLECALCIFEROL 1,000 UNITS 25 MCG TAB PO SCH (09:19)
[2020-10-11] MEDS: hydrALAZINE TAB 50 MG TAB PO SCH ×4 (09:19→19:39)
[2020-10-11] MEDS: FUROSEMIDE 40 MG TAB PO SCH ×2 (09:19→20:04)
[2020-10-11] MEDS: carvediloL 25 MG TAB PO SCH ×2 (09:20→19:39)
[2020-10-11] MEDS: CALCIUM ACETATE 667 MG CAP/TAB PO SCH ×3 (09:20→17:26)
[2020-10-11] MEDS: PANTOprazole 40 MG TAB PO SCH (09:20)
[2020-10-11] MEDS: POLYETHYLENE (MIRALAX) 17 GM PACK PO SCH (09:20)
[2020-10-11] MEDS: INSULIN ASPART 100 UNITS/ML 3 ML PEN SC SCH ×4 (09:23→20:51)
[2020-10-11] MEDS: INSULIN GLARGINE SOLOSTAR 100 UNITS/ML 3 ML PEN SC SCH (09:26)
[2020-10-11] MEDS: methylPREDNISolone 4 MG TAB PO SCH ×4 (10:24→20:04)
[2020-10-11] MEDS ORDERED: hydrALAZINE HCL 20 MG/ML VIAL IV PRN (10:56)
[2020-10-11] MEDS: BACLOFEN 10 MG TAB PO SCH ×2 (13:15→20:02)
--- NOTE | 2020-10-11 16:00 | Hospitalist Progress Note ---
Date of Service October 11, 2020 Assessment & Plan (1) Renal failure: Patient is a 45 yr male with H/O ESRD on HD presents with severe back pain. Acute lumbar radiculopathy Secondary to Disc Prolapse -Lumbar MRI:Central/left paracentral disc protrusion at L4-L5 that results in moderate narrowing of the left lateral recess and mild narrowing of the left neural foramen. Moderate narrowing of the left neural foramen at L5-S1. Mild central canal stenosis at L4-L5. No severe central canal stenosis. No lumbar spine fracture. pain management and orthopedics consulted appreciate input from Pain management team started on Medrol Dose pack per pain management team ; Patient is a poor candidate for interventional treatment due to his end-stage renal disease on hemodialysis and ongoing clopidogrel therapy so therefore would defer lumbar LAUREANO Recommend a Medrol Dosepak Will initiate baclofen 10 mg 3 times daily Patient is requesting evaluation with his prior surgeon-Dr. Mina Sagastume at [facility]. Outpatient referral will be initiated by pain clinic. Hypertensive Urgency Likely due to Volume overload from missing hemodialysis Back pain could be contributing as well Volume status managed through dialysis Continue carvedilol, hydralazine, Terazosin increased hydralazine to 50 mg 4 times daily added PRN Hydralaize Hyperkalemia resolved ESRD , missed dialysis on admission Received calcium gluconate, insulin, Nebs in ER K level normalized after continued dialysis Appreciate Nephrology Input End-stage renal disease On Home hemodialysis Appreciate Nephrology Input Hemodialysis as per nephrology Diabetes type I: HbA1C: 6.4 Continue insulin therapy while hospitalized Monitor BGs CAD Carotid artery stenosis Continue Aspirin, Plavix, atorvastatin, carvedilol Hyperlipidemia: On statin DVT Px: SCDs for now CODE STATUS Full code Disposition Expected discharge home when medically stable. /back pain better controlled Admission and Anticipated Discharge Date Admission Date: October 07, 2020 Subjective Patient is seen and examined at bedside back and left leg pain is the same started on Medrol dose pack by Pain management no complain of SOB , no fever or chills Review of Systems Review of Systems: All systems reviewed & are unremarkable except as noted in Subjective Physical Exam Physical Exam: Physical exam: General: No acute distress, alert awake oriented x3 HEENT: PERRLA, EOMI, Heart: Regular S1-S2, no carotid bruit, no JVD, no lower extremity edema Lungs: Clear to auscultate, no wheeze or rales Abdomen: Soft nontender, no organomegaly Extremity: No cyanosis, no deformity, normal strength 5 out of 5 with upper and lower Neuro: No focal neurological deficit normal speech, normal visual field, Motor strength : normal both upper and lower extremity, sensation intact Psych: Alert awake oriented x3, normal affect Results & Data Results & Data ([facility]) Vital Signs (Past 12 Hours) Vital Signs Temp Pulse Resp BP BP Pulse Ox 10/11/20 15:27 36.6 C 93 H 16 200/107 H 96 10/11/20 13:22 200/73 H 10/11/20 13:18 93 H 192/115 H 10/11/20 07:14 36.8 C 91 H 18 188/100 H 97 10/11/20 05:25 92 H 176/99 H (1) Renal failure Acute renal failure type: unspecified Chronic kidney disease stage: stage 4 (severe) Renal failure chronicity: acute on chronic Qualified Code(s): N17.9 - Acute kidney failure, unspecified; N18.4 - Chronic kidney disease, stage 4 (severe)
[2020-10-11] MEDS: TERAZOSIN HCL 1 MG CAP PO SCH (20:04)
[2020-10-11] MEDS: ATORVASTATIN 40 MG TAB PO SCH (20:05)
[2020-10-11] MEDS ORDERED: LACTULOSE SYRUP 30 GM/45 ML UDP PO STA (21:25)
[2020-10-11] MEDS ORDERED: bisacodyL 10 MG SUPP PR STA (21:25)
[2020-10-11] MEDS: hydrALAZINE HCL 20 MG/ML VIAL IV PRN (23:08)
[2020-10-12] MEDS: HYDROmorphone INJ 0.5 MG/0.5 ML SYR IV PRN ×3 (00:37→17:42)
[2020-10-12] MEDS ORDERED: SODIUM CHLORIDE 0.9% 1000ML 1,000 ML IV PRN (07:00)
[2020-10-12] MEDS ORDERED: EPOETIN ALFA 4,000 UNIT/ML VIAL IV ONE (07:00)
[2020-10-12] MEDS: CHOLECALCIFEROL 1,000 UNITS 25 MCG TAB PO SCH (07:41)
[2020-10-12] MEDS: ASPIRIN 81 MG ECTAB PO SCH (07:42)
[2020-10-12] MEDS: methylPREDNISolone 4 MG TAB PO SCH ×3 (07:42→17:39)
[2020-10-12] MEDS: BACLOFEN 10 MG TAB PO SCH ×3 (07:42→22:08)
[2020-10-12] MEDS: CLOPIDOGREL BISULFATE 75 MG TAB PO SCH (07:42)
[2020-10-12] MEDS: PANTOprazole 40 MG TAB PO SCH (07:42)
[2020-10-12] MEDS: POLYETHYLENE (MIRALAX) 17 GM PACK PO SCH (07:43)
[2020-10-12] MEDS: INSULIN GLARGINE SOLOSTAR 100 UNITS/ML 3 ML PEN SC SCH (07:43)
[2020-10-12] MEDS: CALCIUM ACETATE 667 MG CAP/TAB PO SCH ×4 (07:44→22:08)
[2020-10-12] MEDS: INSULIN ASPART 100 UNITS/ML 3 ML PEN SC SCH ×4 (07:46→22:01)
[2020-10-12] MEDS: hydrALAZINE TAB 50 MG TAB PO SCH ×4 (07:52→22:13)
[2020-10-12] MEDS: carvediloL 25 MG TAB PO SCH ×3 (07:52→22:10)
[2020-10-12] MEDS: FUROSEMIDE 40 MG TAB PO SCH ×3 (07:52→22:07)
--- NOTE | 2020-10-12 08:50 | Pain Management Progress Note ---
Date of Service October 12, 2020 Assessment & Plan (1) Acute left lumbar radiculopathy: (2) Renal failure: Acute renal failure type: unspecified Chronic kidney disease stage: stage 4 (severe) Renal failure chronicity: acute on chronic Qualified Code(s): N17.9 - Acute kidney failure, unspecified; N18.4 - Chronic kidney disease, stage 4 (severe) (3) Diabetes type 1, uncontrolled: (4) Coronary artery disease: (5) Status post coronary artery stent placement: * Patient remains a poor candidate for interventional treatment due to his end-stage renal disease on hemodialysis and ongoing clopidogrel therapy- continue to defer LAUREANO * Patient will finish Medrol Dosepak as prescribed. * Patient will continue with sliding scale insulin with appropriate dosing to account for blood glucose elevation plus carbohydrate intake * Will continue with baclofen 10 mg 3 times daily at this time. Consider adjustment pending response. * Patient was encouraged to utilize Percocet in place of IV hydromorphone in anticipation of discharge planning * Pain service will sign off on patient at this time. Please contact us for further input as needed. Thank you for allowing us to participate in the care of Mr. Gerard. Admission and Anticipated Discharge Date Admission Date: October 07, 2020 Subjective Mr. Gerard is reporting some overall improvement in his low back and left lower extremity radicular pain over the past 24 hours. The patient was out of bed and walked to the bathroom this morning with his walker with minimal exacerbation of discomfort. He rates his current pain at a 3-4/10. He is also reporting more comfortable lying in different positions whereas before he was only able to find relief lying in a right lateral decubitus position with a pillow between his knees. Patient reports some sedation with baclofen yesterday but feels it has been beneficial. He is reporting blood glucose elevations from the Medrol Dosepak. He also reports his insulin dosing is not appropriate based on what he would typically take at home to account for his blood glucose elevation plus his carbohydrate intake. The patient still has not had a bowel movement but did not utilize MiraLAX this morning as he will be attending hemodialysis for 4 hours this morning. Patient indicates he will utilize MiraLAX upon his return to his room. He denies bowel or bladder incontinence or saddle anesthesias. Patient has no further constitutional complaints. Plan of care discussed with Dr. Duval. Pain Assessment Pain Assessment Pain scale - at its best (0-10): 3 Pain scale - at its worst (0-10): 8 Physical Exam Physical Exam: General: Patient lying quietly upon entering the room in no acute distress. Patient was lying flat on his back throughout most of the visit as opposed to yesterday when he was in right lateral decubitus position the entire visit. Speech and thought process appropriate. Cognition intact. Lower extremities: Patient is less guarded movement today. SLR remain positive in the supine position. Sensation remains diminished in nondermatomal pattern involving the foot and ankle region bilaterally. Sensation remains somewhat diminished in the left L5 distribution to sharp and dull. Neurologic: Cranial nerves grossly intact. Ambulatory function not witnessed.
[2020-10-12 09:42] LABS: BUN Creatinine Ratio 9.7 (10-20); Calcium 9.2 mg/dl (8.5-10.1); Creatinine Clr Calc Pharmacy 11.1 ml/min; Est GFR (African American) 6.5 ml/min; Est GFR (Non-African American) 5.6 ml/min; Potassium 6.1 mmol/L (3.5-5.1)
--- NOTE | 2020-10-12 10:51 | Dialysis Progress Note ---
Date of Service October 12, 2020 Assessment & Plan Admission and Anticipated Discharge Date Admission Date: October 07, 2020 Subjective Seen in dialysis. tolerating fine. Ongoing back pain. BP high. GENERAL: Young white male who is somewhat obese. He is not in overt respiratory distress, but he seems to be uncomfortable because of the back pain. HEENT: Mucous membranes moist. NECK: Supple. No jugular venous distention. CHEST: Bilaterally clear to auscultation. CARDIOVASCULAR: S1, S2 regular. ABDOMEN: Soft, nontender. EXTREMITIES: Show trace edema. NEUROLOGIC: He is awake, alert, oriented x3. Normal speech. Moving all 4 extremities. No obvious focal deficit noted. LABORATORIES: reviewed. K is high ASSESSMENT AND PLAN: A 45-year-old male with longstanding type 1 diabetes with end-stage renal disease, on home hemodialysis, now admitted with severe intractable back pain. As a result of severe back pain, he has missed dialysis in the last few days and now has hyperkalemia and high creatinine as well as some degree of fluid overload with hypertensive crisis. 1. End-stage renal disease: We will do dialysis as Rxed. 4hrs 2k bath and take 2.5 kilo off. Patient does like to dictate a lot of his treatment decisions. his K is chronically high and gets 6+ after weekend. Advised to watch k intake better. 2. Back pain: As per primary team. This is an acute on chronic problem and he is getting seen by both pain med and neurosurg and ortho. Results & Data ([facility]) Vital Signs (Past 12 Hours) Vital Signs Temp Pulse Pulse Pulse Resp BP BP 10/12/20 09:25 92 H 179/100 H 10/12/20 09:20 92 H 185/99 H 10/12/20 08:46 92 H 170/88 H 10/12/20 08:40 37.0 C 92 H 10/12/20 08:03 36.6 C 91 H 18 180/97 H 10/12/20 07:10 36.9 C 91 H 18 185/91 H 10/11/20 23:25 36.6 C 91 H 16 164/80 H 10/11/20 23:05 190/110 H Pulse Ox 10/12/20 09:25 10/12/20 09:20 10/12/20 08:46 10/12/20 08:40 10/12/20 08:03 91 10/12/20 07:10 98 10/11/20 23:25 95 10/11/20 23:05
--- NOTE | 2020-10-12 13:01 | Emergency Department Note ---
Impression & Plan Acute hyperkalemia, Hyperglycemia, Labile hypertension, Diabetes type 1, uncontrolled, Acute left lumbar radiculopathy ED Provider Note NAME: LALITA SALDANA AGE: 45 SEX: M : 1975 ARRIVES VIA: Ambulance INFORMANT: Patient, EMS ED PROVIDER(S): Mark Green MD CHIEF COMPLAINT: Left hip pain HPI: This is a 45-year-old male who presents emergency department complaining of left hip pain. The patient reports he was seen here in the emergency department and had x-rays performed on Sunday. He reports he was given oxycodone. He reports he has not been able to get comfortable since that time and has been in severe pain. Patient reports he went home and lay on the floor and did not get up for his dialysis which she receives on Sunday and Sunday. The patient reports he has been unable to ambulate. He reports the pain is a throbbing sensation with radiation down his leg. He reports any movement to the hip causes the pain to get worse. He reports nothing makes the pain better. He has been taking oxycodone without relief of the pain. ROS: See above HPI for pertinent positives & negatives. A total of 10 systems reviewed and were otherwise negative. PAST MEDICAL HISTORY: See Below PAST SURGICAL HISTORY: See Below FAMILY HISTORY: See Below SOCIAL HISTORY: See Below HOME MEDICATIONS: See Below ALLERGIES: See Below VITALS: See Below PHYSICAL EXAMINATION: VITAL SIGNS - Vital signs and nursing notes were reviewed. GENERAL - 45-year-old male appearing stated age who is in moderate distress. Communicates well with provider and answers questions appropriately. SKIN - Without rashes. HEAD - NC/AT. EYES - PERRL with EOMI bilaterally. Sclera anicteric. Palpebral conjunctiva pink and moist with no injection noted. EARS - No deformities of external structures noted on gross examination bilaterally. NOSE - Midline and without cyanosis. No epistaxis or purulent drainage noted. Septum midline without deviation or septal hematoma noted. MOUTH/OROPHARYNX - Without perioral cyanosis. Buccal mucosa pink and moist and without leukoplakia. Tongue midline with equal elevation of palate bilaterally. No tonsillar hypertrophy, erythema, or exudates noted. NECK - Neck with FROM. Supple to palpation. No nuchal rigidity. LUNGS - Chest wall symmetric without accessory muscle use, intercostals retractions, or central cyanosis. Normal vesicular breath sounds CTA B/L. No wheezes, rales, or rhonchi appreciated. CARDIAC - RRR with S1/S2. No murmur, rubs, or gallops appreciated. ABDOMEN - Abdominal contour without pulsations or visible masses. BS normoactive all four quadrants. No tenderness, palpable masses, hepatosplenomegaly, or ascites noted. EXTREMITIES - No clubbing or peripheral cyanosis. No pretibial edema present. +3/5 radial, posterior tibial, and dorsalis pedis pulses palpated throughout. +5/5 strength noted in UE/LE bilaterally. NEUROLOGIC -patient is point tender to the left hip. Patient is laying in a position of comfort with his left hip up. PSYCH - A&Ox3 and cooperates fully with examiner. Pt is very pleasant and int eracts well with examiner. MEDICAL DECISION MAKING: Patient was seen and evaluated as above in room C3. Review was performed of nursing notes and vital signs. I did review pertinent previous visits and patient history. After obtaining a thorough history and physical examination the above work up was performed. This 45-year-old male who is has missed dialysis due to the pain he is in. He was found to have an elevation in his potassium. Due to the changes on his EKG he was given calcium insulin dextrose bicarb as well as albuterol. Repeat examination revealed improvement the patient's symptoms. He was given Dilaudid for his pain. Due to the nature of the pain I am more concerned about a slipped disc therefore he was sent for an MRI. This confirms slipped disc. Due to the multiple findings along with the EKG changes and the need for dialysis I do feel that the patient needs to be admitted. I did discuss his case with the hospitalist service who did agree to meet the patient. An order was placed for continuous cardiac monitoring. The monitor shows a rate of 96 with Normal Sinus rhythm. The patient was evaluated during a period of high volume and high acuity during the global COVID-19 pandemic, and that diagnosis was suspected/considered upon their initial presentation. Their evaluation, treatment and testing was consistent with current guidelines for patients who present with complaints or symptoms that may be related to COVID-19. Patient was seen while provider was wearing PPE. Triage Nursing notes reviewed. Prior medical records reviewed Vital Signs: reviewed and remarkable for no significant abnormalities Differential diagnosis: Fracture, subluxation, dislocation, contusion, ligamentous injury, neurovascular, compartment syndrome, rhabdomyolysis, as well as other pathologies. ER treatment provided: See below Diagnostics interpreted by me: ECG: Sinus rhythm with first-degree AV block old septal infarct no ST elevation or depression QTC is 41 ventricular rate is 83 EKG is compared to 02/13/2018 septal infarct is now present MS interval has increased. Laboratory studies: As stated above and show below. Imaging studies: See below Consultation(s): Internal Medicine Critical Care: I have personally spent greater than 30 minutes of critical care time in the direct management of this patient. This includes bedside care, interpretation of diagnostic studies, and testing, discussion with consultants, patient, and family members, and other required patient management activities. This 30 minutes is in excess of all separately billable procedures. Past Med/Surg History Medical History (Updated 10/12/20 @ 13:10 by Mark Green MD) Bilateral carotid artery stenosis Monitored with Carotid Doppler q6 months. 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 NO HISTORY OF DIALYSIS. Coronary artery disease Diabetes mellitus, insulin-dependent (IDDM or type I) Dyslipidemia GERD (gastroesophageal reflux disease) Gout Hypertension Hypertensive urgency Orthostatic hypotension Presence of artificial eye LEFT Surgical History History of discectomy LUMBAR History of eye surgery MULTIPLE EYE SURGERIES S/T COMPLICATIONS OF DIABETES INCLUDING DETACHED RETINA, DSEAK PROCEDURES, AND ENUCLEATION OF LEFT EYE Status post cardiac catheterization Status post coronary artery stent placement 2009, NO HX OF [place]. [facility]. Family History Other Cancer Diabetes Gallbladder disease Heart disease Hypertension Social History Smoking Status: Never smoker Tobacco Type: Smokeless Tobacco (Dip or Chew) Second Hand Exposure: No; Do You Dip or Chew Tobacco: Yes; Tobacco Cessation Education Requested by Patient: No Hx Alcohol Use: No Hx Substance Use: No Preferred Language: Setswana Communication Ability: Effective Visual Impairment: Blindness Furnace Brazer Required: No Beliefs That Will Affect Care: None marital status: Current Living Situation: Spouse current occupational status: disabled Other Information That Helps Us Care for You: No Feels Safe at Home: Yes Safety Concerns: Feels Safe At This Time Allergies Allergies Allergy/AdvReac Type Severity Reaction Status Date / Time benzonatate Allergy Unknown told not Verified 10/07/20 01:02 to take ibuprofen Allergy Unknown told not Verified 10/07/20 01:02 to take oxycodone AdvReac Intermediate Confusion Verified 10/07/20 01:02 FRED Inhibitors AdvReac Unknown Unknown Verified 10/07/20 01:02 Home Meds Home Medications Medication Instructions Recorded Confirmed atorvastatin 40 mg PO HS 02/13/18 10/07/20 carvedilol 50 mg PO BID 02/13/18 10/07/20 clopidogrel 75 mg PO DAILY 02/13/18 10/07/20 furosemide [Lasix] 40 mg PO BID 02/13/18 10/07/20 insulin aspart U-100 [Novolog 0 unit SUBCUT DIRECTED 02/13/18 10/07/20 Flexpen U-100 Insulin] nitroglycerin [Nitrostat] 0.4 mg SUBLINGUAL DIRECTED PRN 02/13/18 10/07/20 omeprazole 20 mg PO QAM 02/13/18 10/07/20 terazosin 4 mg PO HS 02/13/18 10/07/20 hydralazine 50 mg PO BID #0 06/12/18 10/07/20 aspirin 81 mg PO DAILY 06/10/20 10/07/20 cholecalciferol (vitamin D3) 125 mcg PO DAILY 06/10/20 10/07/20 [Vitamin D3] gabapentin 200 mg PO Q OTHER DAY 06/10/20 10/07/20 ropinirole 0.25 mg PO Q OTHER DAY 06/10/20 10/07/20 calcium acetate(phosphat bind) 667 mg PO TIDM 10/07/20 10/07/20 tramadol 50 mg PO Q6 PRN 10/07/20 10/07/20 Previous Rx's Medication Instructions Recorded oxycodone-acetaminophen [Percocet] 1 tab PO Q6H PRN #15 tab 08/20/20 Results & Data (ED) Laboratory Data Result diagrams: 10/09/20 06:12 10/12/20 08:21 Lab Results 10/07/20 10/07/20 10/07/20 Range/Units 00:31 00:31 00:31 WBC 6.72 (4.8-10.8) K/uL RBC 3.04 L (4.7-6.1) M/uL Hgb 9.8 L (14.0-18.0) g/dL Hct 30.1 L (42-52) % MCV 99.0 (80-100) fL MCH 32.2 (25-34) pg MCHC 32.6 (32-36) g/dL RDW Std Deviation 55.3 H (36.4-46.3) fL RDW Coeff of Nessa 15.6 H (11.5-14.5) % Plt Count 147 (130-400) K/uL MPV 9.3 (7.4-10.4) fL Immature Gran % (Auto) 0.1 % Neut % (Auto) 77.4 % Lymph % (Auto) 9.7 % Parke % (Auto) 10.0 % Eos % (Auto) 2.5 % Baso % (Auto) 0.3 % Neut # (Auto) 5.20 (1.4-6.5) K/uL Lymph # (Auto) 0.65 L (1.2-3.4) K/uL Parke # (Auto) 0.67 H (0.11-0.59) K/uL Eos # (Auto) 0.17 (0-0.5) K/uL Baso # (Auto) 0.02 (0-0.2) K/uL Immature Gran # (Auto) 0.01 (0.00-0.02) K/uL Sodium 134 L (136-145) mmol/L Potassium 6.1 H* (3.5-5.1) mmol/L Chloride 100 (98-107) mmol/L Carbon Dioxide 25 (21-32) mmol/L Anion Gap 9.0 (3-11) BUN 75 H (7-18) mg/dl Creatinine 10.90 H* (0.6-1.4) mg/dl Est Cr Clr Drug Dosing 10.3 ml/min Est GFR ( Amer) 5.8 ml/min Est GFR (Non-Af Amer) 5.0 ml/min BUN/Creatinine Ratio 7.0 L (10-20) Glucose 108 H (70-99) mg/dl Calcium 8.7 (8.5-10.1) mg/dl Total Bilirubin 1.0 (0.2-1) mg/dl AST 5 L (15-37) U/L ALT 11 L (12-78) U/L Alkaline Phosphatase 99 (45-117) U/L Total Protein 7.4 (6.4-8.2) gm/dl Albumin 3.4 (3.4-5.0) gm/dl Globulin 4.0 (2.5-4.0) gm/dl Albumin/Globulin Ratio 0.9 (0.9-2) Lipase 167 (73-393) U/L COVID-19 Eval Order SARS-CoV-2 (PCR) (Negative) Hep Bs Antigen Neg (Neg) Hep Bs Antibody Non-Immune Hep Bs Antibody, Quant < 3.10 L (>or=10mIU/mL Immune) mIU/mL 10/07/20 10/07/20 Range/Units 03:51 03:51 WBC (4.8-10.8) K/uL RBC (4.7-6.1) M/uL Hgb (14.0-18.0) g/dL Hct (42-52) % MCV (80-100) fL MCH (25-34) pg MCHC (32-36) g/dL RDW Std Deviation (36.4-46.3) fL RDW Coeff of Nessa (11.5-14.5) % Plt Count (130-400) K/uL MPV (7.4-10.4) fL Immature Gran % (Auto) % Neut % (Auto) % Lymph % (Auto) % Parke % (Auto) % Eos % (Auto) % Baso % (Auto) % Neut # (Auto) (1.4-6.5) K/uL Lymph # (Auto) (1.2-3.4) K/uL Parke # (Auto) (0.11-0.59) K/uL Eos # (Auto) (0-0.5) K/uL Baso # (Auto) (0-0.2) K/uL Immature Gran # (Auto) (0.00-0.02) K/uL Sodium (136-145) mmol/L Potassium (3.5-5.1) mmol/L Chloride (98-107) mmol/L Carbon Dioxide (21-32) mmol/L Anion Gap (3-11) BUN (7-18) mg/dl Creatinine (0.6-1.4) mg/dl Est Cr Clr Drug Dosing ml/min Est GFR ( Amer) ml/min Est GFR (Non-Af Amer) ml/min BUN/Creatinine Ratio (10-20) Glucose (70-99) mg/dl Calcium (8.5-10.1) mg/dl Total Bilirubin (0.2-1) mg/dl AST (15-37) U/L ALT (12-78) U/L Alkaline Phosphatase (45-117) U/L Total Protein (6.4-8.2) gm/dl Albumin (3.4-5.0) gm/dl Globulin (2.5-4.0) gm/dl Albumin/Globulin Ratio (0.9-2) Lipase (73-393) U/L COVID-19 Eval Order Covid19 at [facility] SARS-CoV-2 (PCR) NEGATIVE (Negative) Hep Bs Antigen (Neg) Hep Bs Antibody Hep Bs Antibody, Quant (>or=10mIU/mL Immune) mIU/mL Administered Medications Acetaminophen (Acetaminophen 325 Mg Tab) 650 mg PO Q4H PRN PRN Reason: Pain or Fever Stop: 11/06/20 06:02 Last Admin: 10/09/20 20:28 Dose: 650 mg Documented by: [id number] Admin: 10/08/20 19:56 Dose: 650 mg Documented by: [id number] Aspirin (Aspirin 81 Mg Ectab) 81 mg PO DAILY [facility] Stop: 11/06/20 08:59 Last Admin: 10/12/20 07:42 Dose: 81 mg Documented by: [id number] Admin: 10/09/20 08:34 Dose: Not Given Documented by: [id number] Admin: 10/08/20 08:10 Dose: 81 mg Documented by: [id number] Admin: 10/07/20 08:44 Dose: 81 mg Documented by: [id number] Atorvastatin Calcium (Atorvastatin 40 Mg Tab) 40 mg PO HS [facility] Stop: 11/06/20 20:59 Last Admin: 10/11/20 20:05 Dose: 40 mg Documented by: [id number] Admin: 10/10/20 21:28 Dose: 40 mg Documented by: [id number] Admin: 10/09/20 20:30 Dose: 40 mg Documented by: [id number] Admin: 10/08/20 20:29 Dose: 40 mg Documented by: [id number] Admin: 10/07/20 20:50 Dose: 40 mg Documented by: [id number] Baclofen (Baclofen 10 Mg Tab) 10 mg PO TID [facility] Stop: 11/10/20 13:59 Last Admin: 10/12/20 07:42 Dose: 10 mg Documented by: [id number] Admin: 10/11/20 20:02 Dose: 10 mg Documented by: [id number] Admin: 10/11/20 13:15 Dose: 10 mg Documented by: [id number] Calcium Acetate (Calcium Acetate 667 Mg Cap/Tab) 667 mg PO TIDM [facility] Stop: 11/06/20 07:59 Last Admin: 10/12/20 12:48 Dose: Not Given Documented by: [id number] Admin: 10/12/20 07:44 Dose: Not Given Documented by: [id number] Admin: 10/11/20 17:26 Dose: Not Given Documented by: [id number] Admin: 10/11/20 13:15 Dose: 667 mg Documented by: [id number] Admin: 10/11/20 09:20 Dose: 667 mg Documented by: [id number] Admin: 10/10/20 18:31 Dose: Not Given Documented by: [id number] Admin: 10/10/20 12:58 Dose: Not Given Documented by: [id number] Admin: 10/10/20 09:14 Dose: Not Given Documented by: [id number] Admin: 10/09/20 18:12 Dose: Not Given Documented by: [id number] Admin: 10/09/20 14:43 Dose: 667 mg Documented by: [id number] Admin: 10/09/20 08:33 Dose: 667 mg Documented by: [id number] Admin: 10/08/20 17:15 Dose: 667 mg Documented by: [id number] Admin: 10/08/20 12:03 Dose: 667 mg Documented by: [id number] Admin: 10/08/20 08:12 Dose: Not Given Documented by: [id number] Admin: 10/07/20 17:18 Dose: Not Given Documented by: [id number] Admin: 10/07/20 17:10 Dose: 667 mg Documented by: [id number] Admin: 10/07/20 08:44 Dose: 667 mg Documented by: [id number] Calcium Carbonate (Calcium Carbonate 500 Mg Chewable Tab) 500 - 1,000 mg PO BID PRN PRN Reason: Indigestion Stop: 11/07/20 20:10 Last Admin: 10/08/20 20:27 Dose: 1,000 mg Documented by: [id number] Carvedilol (Carvedilol 25 Mg Tab) 50 mg PO BID [facility] Stop: 11/06/20 08:59 Last Admin: 10/12/20 12:49 Dose: 50 mg Documented by: [id number] Admin: 10/12/20 07:52 Dose: Not Given Documented by: [id number] Admin: 10/11/20 19:39 Dose: 50 mg Documented by: [id number] Admin: 10/11/20 09:20 Dose: 50 mg Documented by: [id number] Admin: 10/10/20 21:27 Dose: 50 mg Documented by: [id number] Admin: 10/10/20 07:50 Dose: 50 mg Documented by: [id number] Admin: 10/09/20 20:30 Dose: 50 mg Documented by: [id number] Admin: 10/09/20 08:33 Dose: 50 mg Documented by: [id number] Admin: 10/08/20 20:30 Dose: 50 mg Documented by: [id number] Admin: 10/08/20 08:10 Dose: 50 mg Documented by: [id number] Admin: 10/07/20 20:51 Dose: 50 mg Documented by: [id number] Admin: 10/07/20 08:44 Dose: 50 mg Documented by: [id number] Clopidogrel Bisulfate (Clopidogrel Bisulfate 75 Mg Tab) 75 mg PO DAILY [facility] Stop: 11/06/20 08:59 Last Admin: 10/12/20 07:42 Dose: 75 mg Documented by: [id number] Admin: 10/09/20 08:34 Dose: Not Given Documented by: [id number] Admin: 10/08/20 08:11 Dose: 75 mg Documented by: [id number] Admin: 10/07/20 08:44 Dose: 75 mg Documented by: [id number] Furosemide (Furosemide 40 Mg Tab) 40 mg PO BID [facility] Stop: 11/06/20 08:59 Last Admin: 10/12/20 12:49 Dose: 40 mg Documented by: [id number] Admin: 10/12/20 07:52 Dose: Not Given Documented by: [id number] Admin: 10/11/20 20:04 Dose: 40 mg Documented by: [id number] Admin: 10/11/20 09:19 Dose: 40 mg Documented by: [id number] Admin: 10/10/20 21:28 Dose: 40 mg Documented by: [id number] Admin: 10/10/20 07:50 Dose: 40 mg Documented by: [id number] Admin: 10/09/20 20:30 Dose: 40 mg Documented by: [id number] Admin: 10/09/20 08:35 Dose: 40 mg Documented by: [id number] Admin: 10/08/20 20:29 Dose: 40 mg Documented by: [id number] Admin: 10/08/20 08:11 Dose: 40 mg Documented by: [id number] Admin: 10/07/20 20:51 Dose: 40 mg Documented by: [id number] Admin: 10/07/20 08:44 Dose: 40 mg Documented by: [id number] Hydralazine HCl (Hydralazine Tab 50 Mg Tab) 50 mg PO QID [facility] Stop: 11/10/20 12:59 Last Admin: 10/12/20 12:49 Dose: 50 mg Documented by: [id number] Admin: 10/12/20 07:52 Dose: Not Given Documented by: [id number] Admin: 10/11/20 19:39 Dose: 50 mg Documented by: [id number] Admin: 10/11/20 17:26 Dose: 50 mg Documented by: [id number] Admin: 10/11/20 13:14 Dose: 50 mg Documented by: [id number] Hydralazine HCl (Hydralazine Hcl 20 Mg/Ml Vial) 7.5 mg IV Q6H PRN PRN Reason: SBP> 160 Stop: 11/10/20 10:55 Last Admin: 10/11/20 23:08 Dose: 7.5 mg Documented by: [id number] Hydromorphone HCl (Hydromorphone Inj 0.5 Mg/0.5 Ml Syr) 0.5 mg IV Q3H PRN PRN Reason: Pain Stop: 10/21/20 06:02 Last Admin: 10/12/20 07:27 Dose: 0.5 mg Documented by: [id number] Admin: 10/12/20 00:37 Dose: 0.5 mg Documented by: [id number] Admin: 10/11/20 20:02 Dose: 0.5 mg Documented by: [id number] Admin: 10/11/20 16:59 Dose: 0.5 mg Documented by: [id number] Admin: 10/11/20 09:21 Dose: 0.5 mg Documented by: [id number] Admin: 10/11/20 01:17 Dose: 0.5 mg Documented by: [id number] Admin: 10/10/20 21:26 Dose: 0.5 mg Documented by: [id number] Admin: 10/10/20 17:06 Dose: 0.5 mg Documented by: [id number] Admin: 10/10/20 11:26 Dose: 0.5 mg Documented by: [id number] Admin: 10/10/20 07:43 Dose: 0.5 mg Documented by: [id number] Admin: 10/10/20 04:41 Dose: 0.5 mg Documented by: [id number] Admin: 10/10/20 01:03 Dose: 0.5 mg Documented by: [id number] Admin: 10/09/20 21:58 Dose: 0.5 mg Documented by: [id number] Admin: 10/09/20 18:37 Dose: 0.5 mg Documented by: [id number] Admin: 10/09/20 14:43 Dose: 0.5 mg Documented by: [id number] Admin: 10/09/20 11:29 Dose: 0.5 mg Documented by: [id number] Admin: 10/09/20 07:13 Dose: 0.5 mg Documented by: [id number] Admin: 10/09/20 03:36 Dose: 0.5 mg Documented by: [id number] Admin: 10/08/20 23:05 Dose: 0.5 mg Documented by: [id number] Admin: 10/08/20 19:57 Dose: 0.5 mg Documented by: [id number] Admin: 10/08/20 16:34 Dose: 0.5 mg Documented by: [id number] Admin: 10/08/20 13:39 Dose: 0.5 mg Documented by: [id number] Admin: 10/08/20 10:27 Dose: 0.5 mg Documented by: [id number] Admin: 10/08/20 07:14 Dose: 0.5 mg Documented by: [id number] Admin: 10/08/20 04:04 Dose: 0.5 mg Documented by: [id number] Admin: 10/07/20 20:49 Dose: 0.5 mg Documented by: [id number] Admin: 10/07/20 17:12 Dose: 0.5 mg Documented by: [id number] Admin: 10/07/20 09:03 Dose: 0.5 mg Documented by: [id number] Insulin Aspart (Insulin Aspart 100 Units/Ml 3 Ml Pen) 0 units SC ACHS [facility] Stop: 11/06/20 07:29 Last Admin: 10/12/20 07:46 Dose: 8 units Documented by: [id number] Cosigned by: [id number] Admin: 10/11/20 20:51 Dose: 2 units Documented by: [id number] Cosigned by: [id number] Admin: 10/11/20 18:02 Dose: 2 units Documented by: [id number] Cosigned by: [id number] Admin: 10/11/20 13:17 Dose: Not Given Documented by: [id number] Admin: 10/11/20 09:23 Dose: Not Given Documented by: [id number] Admin: 10/10/20 21:47 Dose: Not Given Documented by: [id number] Cosigned by: [id number] Admin: 10/10/20 18:31 Dose: Not Given Documented by: [id number] Admin: 10/10/20 12:58 Dose: Not Given Documented by: [id number] Admin: 10/10/20 09:13 Dose: Not Given Documented by: [id number] Admin: 10/09/20 22:05 Dose: Not Given Documented by: [id number] Cosigned by: [id number] Admin: 10/09/20 18:11 Dose: Not Given Documented by: [id number] Admin: 10/09/20 14:43 Dose: 5 units Documented by: [id number] Cosigned by: [id number] Admin: 10/09/20 08:35 Dose: 10 units Documented by: [id number] Cosigned by: [id number] Admin: 10/08/20 22:16 Dose: 3 units Documented by: [id number] Cosigned by: [id number] Admin: 10/08/20 17:15 Dose: 8 units Documented by: [id number] Cosigned by: [id number] Admin: 10/08/20 12:03 Dose: 7 units Documented by: [id number] Cosigned by: [id number] Admin: 10/08/20 08:07 Dose: 2 units Documented by: [id number] Cosigned by: [id number] Admin: 10/07/20 20:54 Dose: 6 units Documented by: [id number] Cosigned by: [id number] Admin: 10/07/20 17:13 Dose: Not Given Documented by: [id number] Admin: 10/07/20 17:08 Dose: Not Given Documented by: [id number] Admin: 10/07/20 08:02 Dose: Not Given Documented by: [id number] Cosigned by: [id number] Insulin Glargine (Insulin Glargine Solostar 100 Units/Ml 3 Ml Pen) 5 units SC DAILY [facility] Stop: 11/06/20 08:59 Last Admin: 10/12/20 07:43 Dose: 5 units Documented by: [id number] Cosigned by: [id number] Admin: 10/11/20 09:26 Dose: Not Given Documented by: [id number] Admin: 10/10/20 09:14 Dose: Not Given Documented by: [id number] Admin: 10/09/20 08:35 Dose: Not Given Documented by: [id number] Admin: 10/08/20 08:12 Dose: Not Given Documented by: [id number] Admin: 10/07/20 08:51 Dose: Not Given Documented by: [id number] Methylprednisolone (Methylprednisolone 4 Mg Tab) 4 mg PO 0700,1300,1800 [facility] Stop: 10/12/20 18:01 Last Admin: 10/12/20 12:50 Dose: 4 mg Documented by: [id number] Admin: 10/12/20 07:42 Dose: 4 mg Documented by: [id number] Oxycodone/Acetaminophen (Oxycodone/Acetaminophen 5mg/325mg Tab) 1 tab PO Q6H PRN PRN Reason: pain Stop: 10/21/20 10:56 Last Admin: 10/11/20 14:21 Dose: 1 tab Documented by: [id number] Admin: 10/11/20 02:41 Dose: 1 tab Documented by: [id number] Admin: 10/10/20 19:46 Dose: 1 tab Documented by: [id number] Admin: 10/10/20 13:03 Dose: 1 tab Documented by: [id number] Admin: 10/10/20 05:44 Dose: 1 tab Documented by: [id number] Admin: 10/09/20 22:42 Dose: 1 tab Documented by: [id number] Admin: 10/09/20 16:34 Dose: 1 tab Documented by: [id number] Admin: 10/09/20 06:13 Dose: 1 tab Documented by: [id number] Admin: 10/09/20 00:50 Dose: 1 tab Documented by: [id number] Admin: 10/08/20 18:05 Dose: 1 tab Documented by: [id number] Admin: 10/08/20 12:07 Dose: 1 tab Documented by: [id number] Admin: 10/08/20 06:27 Dose: 1 tab Documented by: [id number] Admin: 10/07/20 19:44 Dose: 1 tab Documented by: [id number] Pantoprazole Sodium (Pantoprazole 40 Mg Tab) 40 mg PO [facility]; Protocol Stop: 11/06/20 08:59 Last Admin: 10/12/20 07:42 Dose: 40 mg Documented by: [id number] Admin: 10/11/20 09:20 Dose: 40 mg Documented by: [id number] Admin: 10/10/20 07:49 Dose: 40 mg Documented by: [id number] Admin: 10/09/20 08:34 Dose: 40 mg Documented by: [id number] Admin: 10/08/20 08:11 Dose: 40 mg Documented by: [id number] Admin: 10/07/20 08:45 Dose: 40 mg Documented by: [id number] Polyethylene Glycol (Polyethylene (Miralax) 17 Gm Pack) 17 gm PO DAILY [facility] Stop: 11/10/20 09:14 Last Admin: 10/12/20 07:43 Dose: Not Given Documented by: [id number] Admin: 10/11/20 09:20 Dose: 17 gm Documented by: [id number] Terazosin HCl (Terazosin Hcl 1 Mg Cap) 4 mg PO HS [facility] Stop: 11/06/20 20:59 Last Admin: 10/11/20 20:04 Dose: 4 mg Documented by: [id number] Admin: 10/10/20 21:29 Dose: 4 mg Documented by: [id number] Admin: 10/09/20 20:31 Dose: 4 mg Documented by: [id number] Admin: 10/08/20 20:31 Dose: 4 mg Documented by: [id number] Admin: 10/07/20 20:50 Dose: 4 mg Documented by: [id number] Tramadol HCl (Tramadol Hcl 50 Mg Tablet) 50 mg PO Q6 PRN PRN Reason: Pain, Severe Stop: 11/06/20 06:02 Last Admin: 10/10/20 15:36 Dose: 50 mg Documented by: [id number] Admin: 10/10/20 09:36 Dose: 50 mg Documented by: [id number] Admin: 10/10/20 03:20 Dose: 50 mg Documented by: [id number] Admin: 10/09/20 20:29 Dose: 50 mg Documented by: [id number] Admin: 10/09/20 03:35 Dose: 50 mg Documented by: [id number] Admin: 10/08/20 20:28 Dose: 50 mg Documented by: [id number] Vitamin D (Cholecalciferol 1,000 Units 25 Mcg Tab) 5,000 units PO DAILY [facility] Stop: 11/06/20 08:59 Last Admin: 10/12/20 07:41 Dose: 5,000 units Documented by: [id number] Admin: 10/11/20 09:19 Dose: 5,000 units Documented by: [id number] Admin: 10/10/20 07:50 Dose: 5,000 units Documented by: [id number] Admin: 10/09/20 08:34 Dose: 5,000 units Documented by: [id number] Admin: 10/08/20 08:11 Dose: 5,000 units Documented by: [id number] Admin: 10/07/20 08:43 Dose: 5,000 units Documented by: [id number] Discontinued Medications Albuterol (Albuterol 0.083% Nebu Soln 3 Ml Vial) 2.5 mg NEB NOW STA Stop: 10/07/20 03:25 Last Admin: 10/07/20 04:10 Dose: 2.5 mg Documented by: [id number] Bisacodyl (Bisacodyl 10 Mg Supp) 10 mg MS NOW STA Stop: 10/11/20 21:26 Last Admin: 10/11/20 22:31 Dose: Not Given Documented by: [id number] Clonidine HCl (Clonidine Hcl 0.1 Mg Tab) 0.1 mg PO NOW ONE Stop: 10/11/20 00:44 Last Admin: 10/11/20 01:06 Dose: Not Given Documented by: [id number] Dexamethasone Sodium Phosphate (DexamethasonePf 10 Mg/Ml Vial) 10 mg IV NOW ONE Stop: 10/06/20 23:51 Last Admin: 10/07/20 00:41 Dose: 10 mg Documented by: [id number] Dextrose (Dextrose 50% 50 Ml Syringe) 50 ml IV NOW STA Stop: 10/07/20 03:25 Last Admin: 10/07/20 04:30 Dose: 50 ml Documented by: [id number] Epoetin Tavo (Epoetin Tavo 10,000 Units/Ml Vial) 10,000 units IV 1030 [facility] Stop: 10/07/20 16:00 Last Admin: 10/07/20 12:38 Dose: 10,000 units Documented by: [id number] Epoetin Tavo (Epoetin Tavo 10,000 Units/Ml Vial) 10,000 units IV ONE ONE Stop: 10/09/20 07:01 Last Admin: 10/09/20 11:57 Dose: 10,000 units Documented by: [id number] Epoetin Tavo (Epoetin Tavo 4,000 Unit/Ml Vial) 4,000 units IV ONE ONE Stop: 10/12/20 07:01 Last Admin: 10/12/20 10:54 Dose: 4,000 units Documented by: [id number] Heparin Sodium (Porcine) (Heparin Sod (Porcine) 1000 Unit/Ml) 2,000 units IV ONE ONE Stop: 10/07/20 10:07 Last Admin: 10/07/20 12:40 Dose: Not Given Documented by: [id number] Heparin Sodium (Porcine) (Heparin Sod (Porcine) 1000 Unit/Ml) 500 units IV Q1H [facility] Stop: 10/07/20 13:01 Last Admin: 10/07/20 12:41 Dose: Not Given Documented by: [id number] Admin: 10/07/20 12:40 Dose: Not Given Documented by: [id number] Admin: 10/07/20 12:40 Dose: Not Given Documented by: [id number] Hydralazine HCl (Hydralazine Tab 50 Mg Tab) 50 mg PO BID [facility] Stop: 11/06/20 08:59 Last Admin: 10/08/20 08:10 Dose: 50 mg Documented by: [id number] Admin: 10/07/20 20:51 Dose: 50 mg Documented by: [id number] Admin: 10/07/20 08:44 Dose: 50 mg Documented by: [id number] Hydralazine HCl (Hydralazine Tab 50 Mg Tab) 50 mg PO TID [facility] Stop: 11/07/20 08:59 Last Admin: 10/11/20 09:19 Dose: 50 mg Documented by: [id number] Admin: 10/10/20 21:28 Dose: 50 mg Documented by: [id number] Admin: 10/10/20 13:03 Dose: 50 mg Documented by: [id number] Admin: 10/10/20 07:51 Dose: 50 mg Documented by: [id number] Admin: 10/09/20 20:29 Dose: 50 mg Documented by: [id number] Admin: 10/09/20 14:49 Dose: 50 mg Documented by: [id number] Admin: 10/09/20 08:33 Dose: 50 mg Documented by: [id number] Admin: 10/08/20 19:56 Dose: 50 mg Documented by: [id number] Admin: 10/08/20 13:39 Dose: 50 mg Documented by: [id number] Admin: 10/08/20 09:11 Dose: Not Given Documented by: [id number] Hydralazine HCl (Hydralazine Hcl 20 Mg/Ml Vial) 7.5 mg IV NOW STA Stop: 10/10/20 02:14 Last Admin: 10/10/20 02:26 Dose: 7.5 mg Documented by: [id number] Hydralazine HCl (Hydralazine Hcl 20 Mg/Ml Vial) 5 mg IV NOW ONE Stop: 10/11/20 01:13 Last Admin: 10/11/20 01:16 Dose: 5 mg Documented by: [id number] Hydralazine HCl (Hydralazine Hcl 20 Mg/Ml Vial) 5 mg IV NOW ONE Stop: 10/11/20 04:01 Last Admin: 10/11/20 03:59 Dose: 5 mg Documented by: [id number] Hydralazine HCl (Hydralazine Hcl 20 Mg/Ml Vial) 10 mg IV Q8 PRN PRN Reason: SBP> 160 Stop: 11/10/20 10:55 Last Admin: 10/11/20 15:40 Dose: 10 mg Documented by: [id number] Hydromorphone HCl (Hydromorphone Inj 1 Mg/Ml Syringe) 1 mg IV Q15M PRN PRN Reason: Pain Stop: 10/20/20 23:49 Last Admin: 10/07/20 04:45 Dose: 1 mg Documented by: [id number] Admin: 10/07/20 00:41 Dose: 1 mg Documented by: [id number] Hydromorphone HCl (Hydromorphone Inj 0.5 Mg/0.5 Ml Syr) 0.5 mg IV NOW STA Stop: 10/07/20 10:52 Last Admin: 10/07/20 11:02 Dose: 0.5 mg Documented by: [id number] Acetaminophen (Ofirmev) 1,000 mg in 100 mls @ 400 mls/hr IV NOW STA Stop: 10/07/20 00:04 Last Infusion: 10/07/20 00:40 Dose: 0 mls/hr Documented by: [id number] Admin: 10/07/20 00:25 Dose: 400 mls/hr Documented by: [id number] Promethazine HCl (Phenergan) 25 mg in 51 mls @ 204 mls/hr IV NOW STA Stop: 10/07/20 00:06 Last Infusion: 10/07/20 01:05 Dose: 0 mls/hr Documented by: [id number] Admin: 10/07/20 00:41 Dose: 204 mls/hr Documented by: [id number] Calcium Gluconate () 1,000 mg in 60 mls @ 240 mls/hr IV NOW STA Stop: 10/07/20 03:38 Last Infusion: 10/07/20 05:08 Dose: 0 mls/hr Documented by: [id number] Admin: 10/07/20 04:30 Dose: 240 mls/hr Documented by: [id number] Insulin Human Regular (Novolin-R Insulin Per Unit Charge) 10 units IV NOW STA Stop: 10/07/20 03:25 Last Admin: 10/07/20 04:30 Dose: 10 units Documented by: [id number] Cosigned by: [id number] Lactulose (Lactulose Syrup 30 Gm/45 Ml Udp) 30 gm PO NOW STA Stop: 10/11/20 21:26 Last Admin: 10/11/20 22:31 Dose: 30 gm Documented by: [id number] Methylprednisolone (Methylprednisolone 4 Mg Tab) 8 mg PO 0930,2100 GHAZALA Stop: 10/11/20 21:01 Last Admin: 10/11/20 20:04 Dose: 8 mg Documented by: [id number] Admin: 10/11/20 10:24 Dose: 8 mg Documented by: [id number] Methylprednisolone (Methylprednisolone 4 Mg Tab) 4 mg PO 1300,1800 GHAZALA Stop: 10/11/20 18:01 Last Admin: 10/11/20 18:12 Dose: 4 mg Documented by: [id number] Admin: 10/11/20 13:15 Dose: 4 mg Documented by: [id number] Oxycodone/Acetaminophen (Oxycodone/Acetaminophen 5mg/325mg Tab) 1 tab PO Q6H PRN PRN Reason: pain Stop: 10/21/20 06:02 Last Admin: 10/07/20 10:23 Dose: 1 tab Documented by: [id number] Oxycodone/Acetaminophen (Oxycodone/Acetaminophen 5mg/325mg Tab) 1 tab PO NOW STA Stop: 10/07/20 10:52 Last Admin: 10/07/20 11:01 Dose: 1 tab Documented by: [id number] Polyethylene Glycol (Polyethylene (Miralax) 17 Gm Pack) 17 gm PO DAILY PRN PRN Reason: Constipation Stop: 11/06/20 06:02 Last Admin: 10/08/20 12:07 Dose: 17 gm Documented by: [id number] Sodium Bicarbonate (Sodium Bicarb 8.4% Inj 50 Meq/50 Ml Syr) 50 meq IV NOW STA Stop: 10/07/20 03:25 Last Admin: 10/07/20 04:30 Dose: 50 meq Documented by: [id number] Discharge Plan Visit Data Chief Complaint: Hip Pain Stated Complaint: LT. LEG PAIN (HIP TO ANKLE) ED Provider: Mark Green Discharge Problem: Acute hyperkalemia, Hyperglycemia, Labile hypertension, Diabetes type 1, uncontrolled, Acute left lumbar radiculopathy Patient Disposition: Admitted As Inpatient Discharge Instructions Interventions: ED Discharge Assessment Last Done: 10/07/20 06:00 Discharge Problem: Diabetes type 1, uncontrolled Qualifiers: Glycemic state: with hyperglycemia Qualified Code(s): E10.65 - Type 1 diabetes mellitus with hyperglycemia
--- NOTE | 2020-10-12 16:49 | Hospitalist Progress Note ---
Date of Service October 12, 2020 Assessment & Plan (1) Renal failure: Patient is a 45 yr male with H/O ESRD on HD presents with severe back pain. Acute lumbar radiculopathy Secondary to Disc Prolapse -Lumbar MRI:Central/left paracentral disc protrusion at L4-L5 that results in moderate narrowing of the left lateral recess and mild narrowing of the left neural foramen. Moderate narrowing of the left neural foramen at L5-S1. Mild central canal stenosis at L4-L5. No severe central canal stenosis. No lumbar spine fracture. pain management and orthopedics consulted appreciate input from Pain management team per pain management team ; Patient is a poor candidate for interventional treatment due to his end-stage renal disease on hemodialysis and ongoing clopidogrel therapy so therefore would defer lumbar LAUREANO started on Medrol Dose pack -patient reports significant improvement of lower back and radicular pain. Continue baclofen 10 mg 3 times daily Patient is requesting evaluation with his prior surgeon-Dr. Mina Sagastume at [facility]. Patient had spinal surgery with Dr. Sagastume in past, already been in contact with orthopedics Will be seen by his office on discharge, Patient is asked to fill up release of information form, copy chart with CD of MRI of lumbar spine discharge for continuation of care with orthopedics at [facility] Hypertensive Urgency Likely due to Volume overload from missing hemodialysis Back pain could be contributing as well Volume status managed through dialysis Continue carvedilol, hydralazine, Terazosin increased hydralazine to 50 mg 4 times daily added PRN Hydralaize Hyperkalemia resolved ESRD , missed dialysis on admission Received calcium gluconate, insulin, Nebs in ER K level normalized after continued dialysis Appreciate Nephrology Input End-stage renal disease On Home hemodialysis Appreciate Nephrology Input Hemodialysis as per nephrology Diabetes type I: HbA1C: 6.4 Continue insulin therapy while hospitalized Monitor BGs CAD Carotid artery stenosis Continue Aspirin, Plavix, atorvastatin, carvedilol Hyperlipidemia: On statin DVT Px: SCDs for now CODE STATUS Full code Disposition Plan to discharge home tomorrow Admission and Anticipated Discharge Date Admission Date: October 07, 2020 Subjective Patient reports back pain has markedly improved after starting with steroids, Able to get out of bed, walk on the hallway Minimum left lower leg radiculopathy Had dialysis today, No complaint of shortness of breath no fever or chills, Hoping to get discharged home tomorrow Review of Systems Review of Systems: All systems reviewed & are unremarkable except as noted in Subjective Physical Exam Physical Exam: Physical exam: General: No acute distress, alert awake oriented x3 HEENT: PERRLA, EOMI, Heart: Regular S1-S2, no carotid bruit, no JVD, no lower extremity edema Lungs: Clear to auscultate, no wheeze or rales Abdomen: Soft nontender, no organomegaly Extremity: No cyanosis, no deformity, normal strength 5 out of 5 with upper and lower Neuro: No focal neurological deficit normal speech, normal visual field, Motor strength : normal both upper and lower extremity, sensation intact Psych: Alert awake oriented x3, normal affect Results & Data Results & Data ([facility]) Vital Signs (Past 12 Hours) Vital Signs Temp Pulse Pulse Pulse Resp BP BP 10/12/20 12:09 36.7 C 96 H 18 173/93 H 10/12/20 11:50 36.7 C 95 H 180/90 H 10/12/20 11:00 93 H 153/79 H 10/12/20 10:40 94 H 176/92 H 10/12/20 10:20 93 H 180/101 H 10/12/20 10:00 94 H 181/91 H 10/12/20 09:40 91 H 190/108 H 10/12/20 09:20 92 H 185/99 H 10/12/20 09:00 92 H 179/100 H 10/12/20 08:46 92 H 170/88 H 10/12/20 08:40 37.0 C 92 H 10/12/20 08:03 36.6 C 91 H 18 180/97 H 10/12/20 07:10 36.9 C 91 H 18 185/91 H Pulse Ox 10/12/20 12:09 96 10/12/20 11:50 10/12/20 11:00 10/12/20 10:40 10/12/20 10:20 10/12/20 10:00 10/12/20 09:40 10/12/20 09:20 10/12/20 09:00 10/12/20 08:46 10/12/20 08:40 10/12/20 08:03 91 10/12/20 07:10 98 (1) Renal failure Acute renal failure type: unspecified Chronic kidney disease stage: stage 4 (severe) Renal failure chronicity: acute on chronic Qualified Code(s): N17.9 - Acute kidney failure, unspecified; N18.4 - Chronic kidney disease, stage 4 (severe)
[2020-10-12] MEDS ORDERED: methylPREDNISolone 4 MG TAB PO SCH (21:00)
[2020-10-12] MEDS ORDERED: INSULIN HUMAN REGULAR PER UNIT 4 UNITS in SYRINGE 3.96 ML IV ONE (21:45)
[2020-10-12] MEDS: ATORVASTATIN 40 MG TAB PO SCH (22:07)
[2020-10-12] MEDS: TERAZOSIN HCL 1 MG CAP PO SCH (22:12)
[2020-10-13] MEDS: HYDROmorphone INJ 0.5 MG/0.5 ML SYR IV PRN ×2 (01:32→11:02)
[2020-10-13] MEDS ORDERED: methylPREDNISolone 4 MG TAB PO SCH (07:00)
[2020-10-13 07:48] LABS: BUN Creatinine Ratio 8.8 (10-20); Calcium 8.2 mg/dl (8.5-10.1); Est GFR (African American) 8.6 ml/min; Est GFR (Non-African American) 7.5 ml/min
[2020-10-13 08:04] LABS: Beta-Hydroxybutyrate 2.7 mg/dl (0.2-2.81)
[2020-10-13] MEDS ORDERED: PHARMACY GLYCEMIC MGMT CONSULT PRN (08:39)
[2020-10-13] MEDS: INSULIN ASPART 100 UNITS/ML 3 ML PEN SC SCH ×2 (09:30→12:13)
[2020-10-13] MEDS: CALCIUM ACETATE 667 MG CAP/TAB PO SCH (09:30)
[2020-10-13] MEDS: ASPIRIN 81 MG ECTAB PO SCH (09:33)
[2020-10-13] MEDS: CHOLECALCIFEROL 1,000 UNITS 25 MCG TAB PO SCH (09:34)
[2020-10-13] MEDS: BACLOFEN 10 MG TAB PO SCH (09:34)
[2020-10-13] MEDS: CLOPIDOGREL BISULFATE 75 MG TAB PO SCH (09:35)
[2020-10-13] MEDS: PANTOprazole 40 MG TAB PO SCH (09:35)
[2020-10-13] MEDS: FUROSEMIDE 40 MG TAB PO SCH (09:35)
[2020-10-13] MEDS: POLYETHYLENE (MIRALAX) 17 GM PACK PO SCH (09:36)
[2020-10-13] MEDS: hydrALAZINE TAB 50 MG TAB PO SCH (09:40)
[2020-10-13] MEDS: carvediloL 25 MG TAB PO SCH (09:40)
[2020-10-13] MEDS ORDERED: INSULIN GLARGINE SOLOSTAR 100 UNITS/ML 3 ML PEN SC STA (10:09)
--- NOTE | 2020-10-13 11:13 | Discharge Summary ---
Date of Service October 13, 2020 Admission HPI Per Admitting Provider CHIEF COMPLAINT: Severe back pain. HISTORY OF PRESENT ILLNESS: This is a 45-year-old male with past medical history significant for type 1 diabetes, end-stage renal disease on hemodialysis, history of CAD status post stent, bilateral carotid artery stenosis, labile hypertension, history of retinal edema, history of abnormal liver function tests, proliferative retinopathy, lumbar radiculitis, status post lumbar microdissection, GERD, history of cellulitis of the right lower extremity, hyperparathyroidism. He presents with severe back pain. The patient says since last Sunday he has severe back pain. He was in the ER on 10/02/2020, but the patient is not getting better. He is having ambulatory dysfunction because of severe pain and he is on hemodialysis and he does hemodialysis at home by himself 4-5 times a week. He could not do the dialysis at home because of severe back pain, so he came here and found to have potassium of 6.1. He is lying on his right side to get comfortable. With the pain medication, the pain is improving, but it is coming back. Denies any incontinence of stool or urine. He still makes some urine. He is somewhat constipated, but denies any blood in the stools. No fever, no chills, no abdominal pain. He has some nausea. No vomiting, no chest pain, no shortness of breath, no cough, no fever, no headache. He has some blurred vision from his cataract. No earache, no runny nose, no sore throat. Appetite is okay, but is somewhat down today. Admission Exam Per Admitting Provider GENERAL: The patient is obese, not in acute distress. VITAL SIGNS: Temperature afebrile, pulse 87, respiratory rate 18, blood pressure 191/122, oxygen 92% on room air. 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 NECK: No JVD, no neck masses. CARDIOVASCULAR: S1, S2 heard, regular rate and rhythm, no murmur, no gallop. RESPIRATORY SYSTEM: Normal AP diameter. No accessory muscle use. No wheezing, no crackles. ABDOMEN: Soft, bowel sounds present, nontender, no distention. CENTRAL NERVOUS SYSTEM: Alert and oriented. Speech clear, no facial droop. Moves extremities. EXTREMITIES: No edema, no erythema. MUSCULOSKELETAL: Lumbar left-sided paraspinal tenderness. Can move his lower extremities. 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 Discharge Exam General: No acute distress, alert awake oriented x3 HEENT: PERRLA, EOMI, Heart: Regular S1-S2, no carotid bruit, no JVD, no lower extremity edema Lungs: Clear to auscultate, no wheeze or rales Abdomen: Soft nontender, no organomegaly Extremity: No cyanosis, no deformity, normal strength 5 out of 5 with upper and lower Neuro: No focal neurological deficit normal speech, normal visual field, Motor strength : normal both upper and lower extremity, sensation intact Psych: Alert awake oriented x3, normal affect Discharge Data Allergies Allergy/AdvReac Type Severity Reaction Status Date / Time benzonatate Allergy Unknown told not Verified 10/14/20 08:07 to take ibuprofen Allergy Unknown told not Verified 10/14/20 08:07 to take baclofen AdvReac Severe sedation/co Verified 10/15/20 05:41 nfusion oxycodone AdvReac Intermediate Confusion Verified 10/14/20 08:07 FRED Inhibitors AdvReac Unknown Unknown Verified 10/14/20 08:07 Consultations 10/07/20 03:37 ED Decision to Admit Stat 10/07/20 03:54 ED Decision to Admit Stat 10/07/20 08:00 Consult Nephrology Routine Consult Orthopedic Surgery Routine 10/08/20 17:22 Consult Pain Management Routine Ordered Studies 10/07/20 23:50 MR lumbar spine wo con Stat MRI OF THE LUMBAR SPINE WITHOUT CONTRAST CLINICAL HISTORY: Low back pain. COMPARISON STUDY: Lumbar spine MRI January 31, 2015. Lumbar spine CT October 02, 2020. TECHNIQUE: Utilizing a 1.5 Mulu magnet and dedicated coil, multiplanar, multiecho imaging of the lumbar spine was performed without IV contrast. FINDINGS: For purposes of numbering on this exam, the L5-S1 disc space is assigned to axial image 23 of 25. Alignment of the lumbar spine is anatomic. Vertebral body heights are maintained. No marrow edema or suspicious marrow replacement. There is no intracanalicular mass or fluid collection. This exam is compromised by motion artifact. Mild edema within the paraspinal musculature is noted. Prominent retroperitoneal lymph nodes are better depicted on CT of October 02, 2020. Moderate multilevel facet arthrosis is present. There is mild disc space narrowing with osteophytosis at L5-S1. L1-2: The central canal and neural foramen are patent. L2-3: The central canal and neural foramen are patent. L3-4: The central canal and neural foramen are patent. L4-5: There is a central/left paracentral disc protrusion. There is moderate narrowing of the left lateral recess and mild narrowing of the central canal. There is mild narrowing of the left neural foramen. Right neural foramen is patent. L5-S1: There is disc bulge. Facet arthrosis is present. The central canal is patent. There is mild narrowing of the left lateral recess. Moderate narrowing of the left neural foramen is noted. Right neural foramen is patent. IMPRESSION: 1. Central/left paracentral disc protrusion at L4-L5 that results in moderate narrowing of the left lateral recess and mild narrowing of the left neural foramen. 2. Moderate narrowing of the left neural foramen at L5-S1. 3. Mild central canal stenosis at L4-L5. No severe central canal stenosis. 4. No lumbar spine fracture. ACT 112: Negative or not required by law. Electronically signed by: Fabio Dominguez M.D. 10/07/2020 9:00 AM Dictated: 10/07/2052Transcribed: 10/07/20851 Hospital Course (1) Renal failure: Patient is a 45 yr male with H/O ESRD on HD presents with severe back pain. Acute lumbar radiculopathy Secondary to Disc Prolapse -Lumbar MRI:Central/left paracentral disc protrusion at L4-L5 that results in moderate narrowing of the left lateral recess and mild narrowing of the left neural foramen. Moderate narrowing of the left neural foramen at L5-S1. Mild central canal stenosis at L4-L5. No severe central canal stenosis. No lumbar spine fracture. pain management and orthopedics consulted appreciate input from Pain management team per pain management team ; Patient is a poor candidate for interventional treatment due to his end-stage renal disease on hemodialysis and ongoing clopidogrel therapy so therefore would defer lumbar LAUREANO started on Medrol Dose pack -patient reports significant improvement of lower ba ck and radicular pain. Continue baclofen 10 mg 3 times daily Patient is requesting evaluation with his prior surgeon-Dr. Mina Sagastume at [facility]. Patient had spinal surgery with Dr. Sagastume in past, already been in contact with orthopedics Will be seen by his office on discharge, Patient is asked to fill up release of information form, copy chart with CD of MRI of lumbar spine discharge for continuation of care with orthopedics at [facility] Hypertensive Urgency Likely due to Volume overload from missing hemodialysis Back pain could be contributing as well Volume status managed through dialysis Continue carvedilol, hydralazine, Terazosin increased hydralazine to 50 mg 4 times daily added PRN Hydralaize Hyperkalemia resolved ESRD , missed dialysis on admission Received calcium gluconate, insulin, Nebs in ER K level normalized after continued dialysis Appreciate Nephrology Input End-stage renal disease On Home hemodialysis Appreciate Nephrology Input Hemodialysis as per nephrology Diabetes type I: HbA1C: 6.4 Continue insulin therapy while hospitalized Monitor BGs CAD Carotid artery stenosis Continue Aspirin, Plavix, atorvastatin, carvedilol Hyperlipidemia: On statin DVT Px: SCDs for now CODE STATUS Full code Disposition Plan to discharge home tomorrow Total Time Total Time Spent Total Time Spent (In Minutes): 35 minutes Total Time Includes: Examination of the Patient, Discharge Planning, Medication Reconciliation, Communication With Other Providers and Other Discharge Plan Discharge Items Patient Disposition: Home - Self-Care Reason For Visit: BACK PAIN Discharge Diagnosis: End-stage renal disease on dialysis Hyperkalemia Chronic low back pain, 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 It is recommended that you follow-up with your primary care physician within 1-2 weeks of hospital discharge to ensure you are still doing well. Continue with peritoneal dialysis Continue monitor your blood sugar while on steroid and bring your blood sugar log at your next appointment with your provider. Follow up outpatient for the CAT scan of the abdomen pelvis to evaluate for the retroperitoneal lymphadenopathy. Your provider will refer you to Oncology base on the result of the CAT scan for further evaluation Fall precaution Please call if you have any questions or problems. You can reach a [facility] hospitalist on duty at [facility] 24 hours a day by calling [phone] Pending Studies at Discharge: No Stand-Alone Forms: [facility], Opioid Pain Management, Smoking Cessation Medications and DC Order Prescriptions: New methylprednisolone [Medrol (Jose)] 4 mg tablets,dose pack 4 mg PO UD Qty: 21 RF: 0 Continued furosemide [Lasix] 40 mg Tablet 40 mg PO BID RF: 0 atorvastatin 40 mg Tablet 40 mg PO HS RF: 0 carvedilol 25 mg Tablet 50 mg PO BID RF: 0 clopidogrel 75 mg Tablet 75 mg PO DAILY RF: 0 terazosin 2 mg Capsule 4 mg PO HS RF: 0 nitroglycerin [Nitrostat] 0.4 mg Tablet, Sublingual 0.4 mg Sublingual DIRECTED PRN (Reason: Chest Pain) RF: 0 omeprazole 20 mg Capsule,Delayed Release(Dr/Ec) 20 mg PO QAM RF: 0 insulin aspart U-100 [Novolog Flexpen U-100 Insulin] 100 unit/mL Insulin Pen 0 unit SUBCUT DIRECTED RF: 0 aspirin 81 mg Tablet,Delayed Release (Dr/Ec) 81 mg PO DAILY RF: 0 Discontinued hydralazine 50 mg Tablet 50 mg PO BID Qty: 0 RF: 0 tramadol 50 mg tablet 50 mg PO Q6 PRN (Reason: Pain, Severe) RF: 0 oxycodone-acetaminophen [Percocet] 5-325 mg tablet 1 tab PO Q6H PRN (Reason: pain) Qty: 15 RF: 0 No Action hydralazine 100 mg tablet 100 mg PO TID RF: 0 amlodipine [Norvasc] 5 mg Tablet 5 mg PO QAM 30 Days Qty: 30 RF: 0 Discharge Orders: Discharge Order (Routine); Ordered 10/13/20 Ordered By: Karla Álvarez/Other Patient Handouts: Managing Type 1 Diabetes, A1C Admission Data Admit Date/Time: 10/07/20 04:37 Attending Provider: Elisabet Schultz Admit Provider: Mihir Humphrey Primary Care Provider: Misti Glover Other Providers: Felipe Okaes ; Parvez Lamas ; Mihir Humphrey ; Dahiana Rojas ; Silas Parkler,Dayday E ; Antonina Horvath ; Landon Duval ; Leela Valdez ; Karla Mckeon. Other Interventions: Discharge Summary Assessment (RN) Last Done: 10/13/20 11:40
[2020-10-13] MEDS: hydrALAZINE HCL 20 MG/ML VIAL IV PRN (11:45)
[2020-10-14] MEDS ORDERED: methylPREDNISolone 4 MG TAB PO SCH (07:00)
[2020-10-15] MEDS ORDERED: methylPREDNISolone 4 MG TAB PO SCH (07:00)
[2020-10-16] MEDS ORDERED: methylPREDNISolone 4 MG TAB PO SCH (07:00)
== END 2020-10-13 12:39 | disposition home or self-care (01) | DRG 551 ==
LOC: ED 22:18 → EDINP 10-07 04:37 → SUATTDRO 10-07 04:37 → 2S 10-07 06:00 → 3N 10-09 21:20

== ENCOUNTER 2020-10-15 03:54 | Observation (INO) ==
--- NOTE | 2020-10-15 04:16 | Emergency Department Note ---
History of Present Illness General Chief complaint: Respiratory Problems Stated complaint: RESP ISSUES Time Seen by Provider: 10/15/20 04:03 History of Present Illness This 45-year-old ESRD presents to the ER complaining of increased weakness and feeling like he might need to dialyze but dialyzed today Location: Generalized Quality: Weak and twitchy Severity: Moderate Duration: Today Timing: Today Context: Patient was concerned and came in Modifying factors: better with nothing; worse with activity Patient states he feels kind of out of it. states he will be talking and then spaces out. He did not dialyze as much as he supposed to this week as he was hospitalized. Patient denies chest pain, fevers, vomiting, flulike illness. He has received the Covid vaccine. Home Medications Medication Instructions Recorded Confirmed Type atorvastatin 40 mg PO HS 02/13/18 10/14/20 History carvedilol 50 mg PO BID 02/13/18 10/14/20 History clopidogrel 75 mg PO DAILY 02/13/18 10/14/20 History furosemide [Lasix] 40 mg PO BID 02/13/18 10/14/20 History insulin aspart U-100 [Novolog 0 unit SUBCUT DIRECTED 02/13/18 10/14/20 History Flexpen U-100 Insulin] nitroglycerin [Nitrostat] 0.4 mg SUBLINGUAL DIRECTED PRN 02/13/18 10/14/20 History omeprazole 20 mg PO QAM 02/13/18 10/14/20 History terazosin 4 mg PO HS 02/13/18 10/14/20 History aspirin 81 mg PO DAILY 06/10/20 10/14/20 History methylprednisolone [Medrol (Jose)] 4 mg PO UD #21 ea 10/12/20 10/14/20 Rx oxycodone-acetaminophen [Percocet] 1 tab PO Q6H PRN #15 tab 10/12/20 10/14/20 Rx hydralazine 100 mg PO TID 10/14/20 10/14/20 History Allergies Allergy/AdvReac Type Severity Reaction Status Date / Time benzonatate Allergy Unknown told not Verified 10/14/20 08:07 to take ibuprofen Allergy Unknown told not Verified 10/14/20 08:07 to take oxycodone AdvReac Intermediate Confusion Verified 10/14/20 08:07 FRED Inhibitors AdvReac Unknown Unknown Verified 10/14/20 08:07 Past Med/Surg History Medical History (Updated 10/15/20 @ 04:23 by Keila Carolina PA-C) Bilateral carotid artery stenosis Monitored with Carotid Doppler q6 months. 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 NO HISTORY OF DIALYSIS. Coronary artery disease Diabetes mellitus, insulin-dependent (IDDM or type I) Dyslipidemia GERD (gastroesophageal reflux disease) Gout Hypertension Hypertensive urgency Orthostatic hypotension Presence of artificial eye LEFT Surgical History History of discectomy LUMBAR History of eye surgery MULTIPLE EYE SURGERIES S/T COMPLICATIONS OF DIABETES INCLUDING DETACHED RETINA, DSEAK PROCEDURES, AND ENUCLEATION OF LEFT EYE Status post cardiac catheterization Status post coronary artery stent placement 2009, NO HX OF MS. [facility]. Family History Other Cancer Diabetes Gallbladder disease Heart disease Hypertension Social History Smoking Status: Never smoker Tobacco Type: Smokeless Tobacco (Dip or Chew) Second Hand Exposure: No; Hx Alcohol Use: No Hx Substance Use: No Preferred Language: Turkish Communication Ability: Effective Visual Impairment: Blindness Biological Engineer Required: No Beliefs That Will Affect Care: None marital status: Current Living Situation: Spouse current occupational status: disabled Feels Safe at Home: Yes Assistive Devices: Prosthesis and Walker Review of Systems A total of 10 systems reviewed and were otherwise negative Physical Exam Vital Signs Vital Signs - 24 hr 10/15/20 04:00 10/15/20 04:16 10/15/20 04:33 Temperature 36.0 C L Temperature Source Temporal Artery Scan Pulse Rate 65 Pulse Rate [Right] 70 Pulse Rhythm [Right] Regular Pulse Strength [Right] Normal Respiratory Rate 18 18 Respiratory Effort / Characteristics Non-Labored Non-Labored Spontaneous Respiratory Depth Normal Normal Normal Respiratory Pattern Regular Regular Blood Pressure 198/94 H Blood Pressure [Right Arm] 161/89 H Blood Pressure Mean 128 Blood Pressure Mean [Right Arm] 113 Blood Pressure Position Sitting Blood Pressure Position [Right Arm] Lying Pulse Oximetry 99 100 98 Oxygen Delivery Method Room Air Room Air Room Air Sepsis Recent Fever Within 48 Hours No Sepsis New/Unexplained Change in Mental Status N/A Sepsis Action Taken by Nursing No Action Required VITALS: Vitals are noted on the nurse's note and reviewed by myself. Vital signs stable. GENERAL: Pleasant male answering questions appropriately, in no acute distress, nondiaphoretic, well-developed well-nourished. SKIN: Capillary reflex less than 2 seconds. HEENT: Normocephalic. PERRLA. EOMI. Nares patent. Mucous membranes moist. Neck is supple without nuchal rigidity. HEART: Regular rate and rhythm LUNGS: Clear to auscultation bilaterally without wheezes, rales or rhonchi. No retractions or accessory muscle use. ABDOMEN: Positive bowel sounds x 4. Normal tympanic percussion. Soft, nontender, without masses or organomegaly. Leger sign negative. No guarding or rebound tenderness. MUSCULOSKELETAL: No gross musculoskeletal defects. NEURO: Patient was alert and oriented to person place and time. No focal neurological deficits. Medical Decision Making Medical Records Attestation: I reviewed the patient's medical records. Home Medications Current Medication List: was personally reviewed by me Laboratory Data Attestation: I reviewed the patient's lab results. Result diagrams: 10/15/20 04:15 10/15/20 04:15 Lab Results 10/15/20 10/15/20 10/15/20 Range/Units 04:11 04:15 04:15 WBC 11.67 H (4.8-10.8) K/uL RBC 3.20 L (4.7-6.1) M/uL Hgb 10.1 L (14.0-18.0) g/dL Hct 31.1 L (42-52) % MCV 97.2 (80-100) fL MCH 31.6 (25-34) pg MCHC 32.5 (32-36) g/dL RDW Std Deviation 55.4 H (36.4-46.3) fL RDW Coeff of Nessa 15.6 H (11.5-14.5) % Plt Count 161 (130-400) K/uL MPV 9.2 (7.4-10.4) fL Immature Gran % (Auto) 0.2 % Neut % (Auto) 90.5 % Lymph % (Auto) 8.3 % Woodruff % (Auto) 1.0 % Eos % (Auto) 0.0 % Baso % (Auto) 0.0 % Neut # (Auto) 10.56 H (1.4-6.5) K/uL Lymph # (Auto) 0.97 L (1.2-3.4) K/uL Woodruff # (Auto) 0.12 (0.11-0.59) K/uL Eos # (Auto) 0.00 (0-0.5) K/uL Baso # (Auto) 0.00 (0-0.2) K/uL Immature Gran # (Auto) 0.02 (0.00-0.02) K/uL Sodium 135 L (136-145) mmol/L Potassium 5.1 (3.5-5.1) mmol/L Chloride 97 L (98-107) mmol/L Carbon Dioxide 28 (21-32) mmol/L Anion Gap 10.0 (3-11) BUN 65 H (7-18) mg/dl Creatinine 7.31 H* D (0.6-1.4) mg/dl Est Cr Clr Drug Dosing Not Reportable Est GFR ( Amer) 9.3 ml/min Est GFR (Non-Af Amer) 8.1 ml/min BUN/Creatinine Ratio 9.0 L (10-20) Glucose 235 H (70-99) mg/dl Calcium 8.8 (8.5-10.1) mg/dl Magnesium 2.6 H (1.8-2.4) mg/dl Total Bilirubin 0.7 (0.2-1) mg/dl AST 12 L (15-37) U/L ALT 23 (12-78) U/L Alkaline Phosphatase 105 (45-117) U/L Total Creatine Kinase 82 (39-308) U/L Troponin I < 0.015 (0-0.045) ng/ml Total Protein 7.4 (6.4-8.2) gm/dl Albumin 3.6 (3.4-5.0) gm/dl Globulin 3.8 (2.5-4.0) gm/dl Albumin/Globulin Ratio 0.9 (0.9-2) TSH 1.140 (0.300-4.500) uIu/ml COVID-19 Eval Order Covid19 at [facility] Imaging Data Attestation: I personally reviewed and interpreted this imaging study as follows: MDM Narrative Prior records/ancillary studies reviewed and summarized above. Nursing notes reviewed. Additional history obtained from family. The patient's history was concerning for feeling weak more fatigue and feeling like he might need to dialyze. Differential diagnosis: Etiologies such as metabolic, infection, hypo/hyperglycemia, electrolyte abn ormalities, cardiac sources, intracerebral event, toxicologic, neurologic, as well as others were entertained. Physical examination: As above. ER treatment provided: IV Lock An order was placed for continuous cardiac monitoring. The monitor shows a rate of 60-100 with a sinus rhythm. On reassessment the patient felt better. Diagnostics interpretation by me: ECG: Ordered for weakness EKG: Normal sinus, normal intervals, QTC 486, rate of 64. In impression normal sinus rhythm interpreted by myself I think arrhythmia is unlikely. EKG shows normal sinus rhythm with no interval abnormalities such as QT prolongation or WPW. There are no findings to suggest Brugada syndrome. Cardiac monitoring in the emergency department reveals no tachycardic or bradycardic dysrhythmia. Hypertrophic cardiomyopathy was considered but there are no clear historical elements pointing toward this. EKG is not suggestive. The QRS voltage is not extremely large and there are no suggestive Q waves. The labs revealed elevated creatinine, stable per chart review, patient home dialysis Imaging studies: Chest x-ray with cardiomegaly without pneumothorax or free air per my interpretation Consultation: A consultation was placed with the hospitalist. The case was discussed and diagnostics were reviewed. The patient was evaluated in the ER for further treatment. Exam and history seem consistent with increased weakness and lethargy in a dialysis patient. Patient is requesting admission. Medicine was consulted. He will be evaluated for admission. By the evaluation outlined above emergent etiologies such as infection, electrolyte abnormalities, cardiac sources, intracerebral event, toxologic, neurologic, abnormalities blood glucose, metabolic, as well as others were deem ed relatively unlikely. The pt informed about the findings as listed above. All questions were answered and pleased with the treatment. The chart was completed utilizing [employer] voice recognition software. Grammatical errors, random word insertions, pronoun errors, and incomplete s entences are an occassional consequence of this system due to software limitations, ambient noise, and hardware issues. Any formal questions or concerns about the content, text, or information contained within the body of this dictation should be directly addressed to the physician licensed nursing assistant for cl arification. Impression & Plan Weakness Discharge Plan Visit Data Chief Complaint: Respiratory Problems Stated Complaint: RESP ISSUES ED Provider: Sarath Naranjo ED Midlevel Provider: Keila Carolina Discharge Problem: Weakness Patient Disposition: Admitted As Inpatient Condition: Fair Forms Stand Alone Forms: My [facility] Prescriptions Prescriptions: No Action furosemide [Lasix] 40 mg Tablet 40 mg PO BID RF: 0 atorvastatin 40 mg Tablet 40 mg PO HS RF: 0 carvedilol 25 mg Tablet 50 mg PO BID RF: 0 clopidogrel 75 mg Tablet 75 mg PO DAILY RF: 0 terazosin 2 mg Capsule 4 mg PO HS RF: 0 nitroglycerin [Nitrostat] 0.4 mg Tablet, Sublingual 0.4 mg Sublingual DIRECTED PRN (Reason: Chest Pain) RF: 0 omeprazole 20 mg Capsule,Delayed Release(Dr/Ec) 20 mg PO QAM RF: 0 insulin aspart U-100 [Novolog Flexpen U-100 Insulin] 100 unit/mL Insulin Pen 0 unit SUBCUT DIRECTED RF: 0 aspirin 81 mg Tablet,Delayed Release (Dr/Ec) 81 mg PO DAILY RF: 0 methylprednisolone [Medrol (Jose)] 4 mg tablets,dose pack 4 mg PO UD Qty: 21 RF: 0 oxycodone-acetaminophen [Percocet] 5-325 mg tablet 1 tab PO Q6H PRN (Reason: pain) Qty: 15 RF: 0 hydralazine 100 mg tablet 100 mg PO TID RF: 0 Referrals Referrals: Misti Glover CRNP [Primary Care Provider] -
[2020-10-15 04:23] LABS: Hematocrit (blood only) 31.1 % (42-52); Hemoglobin 10.1 g/dL (14.0-18.0); Immature Granulocytes # (auto) 0.02 K/uL (0.00-0.02); Immature Granulocytes % (auto) 0.2 %; Lymphocytes # (auto) 0.97 K/uL (1.2-3.4); Lymphocytes % (auto) 8.3 %; Mean Corpuscular Hemoglobin 31.6 pg (25-34); Mean Corpuscular Hgb Conc 32.5 g/dL (32-36); Mean Corpuscular Volume 97.2 fL (80-100); Mean Platelet Volume 9.2 fL (7.4-10.4); Monocytes # (auto) 0.12 K/uL (0.11-0.59); Neutrophils # (auto) 10.56 K/uL (1.4-6.5); Neutrophils % (auto) 90.5 %; Platelet Count 161 K/uL (130-400); RDW Coefficient of Variation 15.6 % (11.5-14.5); RDW Standard Deviation 55.4 fL (36.4-46.3); White Blood Count 11.67 K/uL (4.8-10.8)
[2020-10-15] MEDS ORDERED: hydrALAZINE HCL 20 MG/ML VIAL IV STA (04:28)
[2020-10-15 04:59] LABS: Alanine Aminotransferase 23 U/L (12-78); Albumin Globulin Ratio 0.9 (0.9-2); Albumin Level 3.6 gm/dl (3.4-5.0); Alkaline Phosphatase 105 U/L (45-117); Aspartate Aminotransferase 12 U/L (15-37); Bilirubin,Total 0.7 mg/dl (0.2-1); Blood Urea Nitrogen 65 mg/dl (7-18); Calcium 8.8 mg/dl (8.5-10.1); Carbon Dioxide 28 mmol/L (21-32); Chloride 97 mmol/L (98-107); Creatine Kinase 82 U/L (39-308); Est GFR (African American) 9.3 ml/min; Est GFR (Non-African American) 8.1 ml/min; Globulin 3.8 gm/dl (2.5-4.0); Glucose 235 mg/dl (70-99); Magnesium 2.6 mg/dl (1.8-2.4); Potassium 5.1 mmol/L (3.5-5.1); Sodium 135 mmol/L (136-145); Total Protein 7.4 gm/dl (6.4-8.2); Troponin I < 0.015 ng/ml (0-0.045)
[2020-10-15] MEDS ORDERED: hydrALAZINE TAB 50 MG TAB PO STA (05:30)
--- NOTE | 2020-10-15 05:31 | History & Physical Report ---
Date of Service October 15, 2020 Assessment & Plan (1) SOB (shortness of breath): Episode of hypoxemia at home as per patient account Severe pulmonary hypertension on TTE 2019 from possible sleep apnea as per outpatient documentation Rule out PE given abnormal D-dimer Episodic sleepiness Possible undiagnosed sleep disordered breathing ? Sedation from residual Baclofen/Percocet ? Uncontrolled hypertension, recent steroid Rx for lumbar radiculopathy contributory Rule out structural intracranial pathology hx CAD status post stent hyperlipidemia on statin Rx DM1, well-controlled as of recent hemoglobin A1c of 6.4, September 2020 ESRD on HD chronic anemia, hemoglobin at baseline retroperitoneal/gastrohepatic/portacaval lymphadenopathy, incidental finding on recent lumbar CT , possible lymphoma (Contrast CT of the abdomen pelvis contemplated by patient PCP as work-up along with outpatient Oncology consultation once pathologic diagnosis obtained as per documentation.) Medical telemetry CT chest PE study CT head Re: Episodic confusion/sleepiness in the setting of uncontrolled hypert ension rule out bleed CT abdomen pelvis with IV and oral contrast at time of PE study (to facilitate work-up for retroperitoneal lymphadenopathy) Further management pending CT results Facilitate home BP meds, add amlodipine Outpatient sleep study Nephrology consultation for uncontrolled hypertension and possible dialysis management during hospital stay especially with contemplated IV contrast admi nistration Basal insulin, ISS BG goal 1 10-1 40, carb count coverage DVT prophylaxis. Heparin subcu if no bleed on CT head Full code Patient's requesting updates from providers. Ms. Teressa Gerard, contact numbers [phone]. Text document was generated using [employer] voice recognition software. It may contain grammatical or spelling errors. Kindly contact undersigned for clarification of any documentation item in question. History of Present Illness Chief Complaint: Shortness of breath, sleeping a lot Primary Care Provider: Dr. Urbano History obtained from patient, family, and records. Medical history significant for CAD status post stent, hypertension, hyperlipidemia, severe pulmonary hypertension on recent TTE 2019, possible LUZ, DM1, ESRD on HD, chronic anemia (baseline hemoglobin of 10), retroperitoneal/ga strohepatic/portacaval/lymphadenopathy on recent CT (2015). Last confinement October 07-2020 for severe back pain attributed to acute lumbar radiculopathy with disc prolapse. pain management recommended Medrol Dosepak which improved pain. Patient also started on Baclofen 10 mg 3 times daily which was making patient very sleepy. Patient hydralazine dose increased 50 mg to 100 mg TID on discharge for uncontrolled blood pressure. Patient sleeping a lot at home as per . Intermittent shortness of breath without unusual cough symptoms or chest pain. Patient woke up very short of breath yesterday morning. O2 sats noted to be 60s on room air on home pulse ox for a brief moment. O2 sats consistently greater than 92% upon EMS arrival. Patient brought to the ER for evaluation yesterday morning. Chest x-ray showed cardiomegaly and interstitial thickening/mild asymmetric right lung opacities, pulmonary edema versus infectious process. Patient instructed to go to scheduled hemodialysis session yesterday morning and to stop Baclofen due to sedation. Patient also advised by medical provider to hold off on taking home Percocet while with episodes of sleepiness. Patient still with shortness of breath at rest at home even after dialysis session. Arms and legs somewhat restless as per . Still falling asleep from time to time. Patient denies headaches. Patient brought to the ER by for evaluation. MEDICAL HISTORY: As above. 2018 colonoscopy showed internal hemorrhoids SURGICAL HISTORY: He had multiple laser surgeries for his retinopathy, dental surgery, enucleation left eye, detached retina repair FAMILY HISTORY: Diabetes. Stroke. 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 Allergies Allergy/AdvReac Type Severity Reaction Status Date / Time benzonatate Allergy Unknown told not Verified 10/14/20 08:07 to take ibuprofen Allergy Unknown told not Verified 10/14/20 08:07 to take baclofen AdvReac Severe sedation/co Verified 10/15/20 05:41 nfusion oxycodone AdvReac Intermediate Confusion Verified 10/14/20 08:07 FRED Inhibitors AdvReac Unknown Unknown Verified 10/14/20 08:07 Home Medications Medication Instructions Recorded Confirmed Type atorvastatin 40 mg PO HS 02/13/18 10/15/20 History carvedilol 50 mg PO BID 02/13/18 10/15/20 History clopidogrel 75 mg PO DAILY 02/13/18 10/15/20 History furosemide [Lasix] 40 mg PO BID 02/13/18 10/15/20 History insulin aspart U-100 [Novolog 0 unit SUBCUT DIRECTED 02/13/18 10/15/20 History Flexpen U-100 Insulin] nitroglycerin [Nitrostat] 0.4 mg SUBLINGUAL DIRECTED PRN 02/13/18 10/15/20 History omeprazole 20 mg PO QAM 02/13/18 10/15/20 History terazosin 4 mg PO HS 02/13/18 10/15/20 History aspirin 81 mg PO DAILY 06/10/20 10/15/20 History methylprednisolone [Medrol (Jose)] 4 mg PO UD #21 ea 10/12/20 10/15/20 Rx oxycodone-acetaminophen [Percocet] 1 tab PO Q6H PRN #15 tab 10/12/20 10/15/20 Rx hydralazine 100 mg PO TID 10/14/20 10/15/20 History Past Med/Surg History Medical History (Updated 10/15/20 @ 06:39 by Parvez Lamas MD) Bilateral carotid artery stenosis Monitored with Carotid Doppler q6 months. 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 NO HISTORY OF DIALYSIS. Coronary artery disease Diabetes mellitus, insulin-dependent (IDDM or type I) Dyslipidemia GERD (gastroesophageal reflux disease) Gout Hypertension Hypertensive urgency Orthostatic hypotension Presence of artificial eye LEFT Surgical History History of discectomy LUMBAR History of eye surgery MULTIPLE EYE SURGERIES S/T COMPLICATIONS OF DIABETES INCLUDING DETACHED RETINA, DSEAK PROCEDURES, AND ENUCLEATION OF LEFT EYE Status post cardiac catheterization Status post coronary artery stent placement 2009, NO HX OF [place]. [facility]. Family History Other Cancer Diabetes Gallbladder disease Heart disease Hypertension Social History Smoking Status: Never smoker Tobacco Type: Smokeless Tobacco (Dip or Chew) Second Hand Exposure: No; Hx Alcohol Use: No Hx Substance Use: No Preferred Language: Turkish Communication Ability: Effective Visual Impairment: Blindness Brusher Tender Required: No Beliefs That Will Affect Care: None marital status: Current Living Situation: Spouse current occupational status: disabled Feels Safe at Home: Yes Assistive Devices: Prosthesis and Walker Review of Systems Review of Systems: As per HPI, all 10 systems reviewed, all other ROS negative Physical Exam Physical Exam: GENERAL: Comfortable, obese, awake with episodic lethargy, no respiratory distress SKIN: Sallow, warm HEENT: pale palpebral conjunctivae, chronic ptosis left, dry buccal mucosa NECK : Supple, short neck, no tenderness CHEST : CTA, no tenderness HEART : RRR, no obvious murmurs ABDOMEN: Some distention, nontender EXTREMITIES : Minimal LE swelling, no LE tenderness, no other conspicuous defo rmities noted NEUROLOGIC : Coherent with episodic sleepiness, chronic ptosis left, no facial asymmetry, no other gross focality Results & Data Results & Data ([facility]) Vital Signs (Past 12 Hours) Vital Signs Temp Pulse Pulse Resp BP BP Pulse Ox 10/15/20 04:33 70 18 161/89 H 98 10/15/20 04:16 100 10/15/20 04:00 36.0 C L 65 18 198/94 H 99 Laboratory Results Laboratory Results WBC 11.67 K/uL (4.8-10.8) H 10/15/20 04:15 RBC 3.20 M/uL (4.7-6.1) L 10/15/20 04:15 Hgb 10.1 g/dL (14.0-18.0) L 10/15/20 04:15 Hct 31.1 % (42-52) L 10/15/20 04:15 MCV 97.2 fL (80-100) 10/15/20 04:15 MCH 31.6 pg (25-34) 10/15/20 04:15 MCHC 32.5 g/dL (32-36) 10/15/20 04:15 RDW Std Deviation 55.4 fL (36.4-46.3) H 10/15/20 04:15 RDW Coeff of Nessa 15.6 % (11.5-14.5) H 10/15/20 04:15 Plt Count 161 K/uL (130-400) 10/15/20 04:15 MPV 9.2 fL (7.4-10.4) 10/15/20 04:15 Immature Gran % (Auto) 0.2 % 10/15/20 04:15 Neut % (Auto) 90.5 % 10/15/20 04:15 Lymph % (Auto) 8.3 % 10/15/20 04:15 Schley % (Auto) 1.0 % 10/15/20 04:15 Eos % (Auto) 0.0 % 10/15/20 04:15 Baso % (Auto) 0.0 % 10/15/20 04:15 Neut # (Auto) 10.56 K/uL (1.4-6.5) H 10/15/20 04:15 Lymph # (Auto) 0.97 K/uL (1.2-3.4) L 10/15/20 04:15 Schley # (Auto) 0.12 K/uL (0.11-0.59) 10/15/20 04:15 Eos # (Auto) 0.00 K/uL (0-0.5) 10/15/20 04:15 Baso # (Auto) 0.00 K/uL (0-0.2) 10/15/20 04:15 Immature Gran # (Auto) 0.02 K/uL (0.00-0.02) 10/15/20 04:15 Sodium 135 mmol/L (136-145) L 10/15/20 04:15 Potassium 5.1 mmol/L (3.5-5.1) 10/15/20 04:15 Chloride 97 mmol/L (98-107) L 10/15/20 04:15 Carbon Dioxide 28 mmol/L (21-32) 10/15/20 04:15 Anion Gap 10.0 (3-11) 10/15/20 04:15 BUN 65 mg/dl (7-18) H 10/15/20 04:15 Creatinine 7.31 mg/dl (0.6-1.4) H* D 10/15/20 04:15 Est Cr Clr Drug Dosing Not Reportable 10/15/20 04:15 Est GFR ( Amer) 9.3 ml/min 10/15/20 04:15 Est GFR (Non-Af Amer) 8.1 ml/min 10/15/20 04:15 BUN/Creatinine Ratio 9.0 (10-20) L 10/15/20 04:15 Glucose 235 mg/dl (70-99) H 10/15/20 04:15 Calcium 8.8 mg/dl (8.5-10.1) 10/15/20 04:15 Magnesium 2.6 mg/dl (1.8-2.4) H 10/15/20 04:15 Total Bilirubin 0.7 mg/dl (0.2-1) 10/15/20 04:15 AST 12 U/L (15-37) L 10/15/20 04:15 ALT 23 U/L (12-78) 10/15/20 04:15 Alkaline Phosphatase 105 U/L (45-117) 10/15/20 04:15 Total Creatine Kinase 82 U/L (39-308) 10/15/20 04:15 Troponin I < 0.015 ng/ml (0-0.045) 10/15/20 04:15 Total Protein 7.4 gm/dl (6.4-8.2) 10/15/20 04:15 Albumin 3.6 gm/dl (3.4-5.0) 10/15/20 04:15 Globulin 3.8 gm/dl (2.5-4.0) 10/15/20 04:15 Albumin/Globulin Ratio 0.9 (0.9-2) 10/15/20 04:15 TSH 1.140 uIu/ml (0.300-4.500) 10/15/20 04:15 COVID-19 Eval Order Covid19 at [facility] 10/15/20 04:11 SARS-CoV-2 (PCR) NEGATIVE (Negative) 10/15/20 04:11 Diagnostic Findings Chest x-ray as per my interpretation cardiomegaly EKG as per my interpretation : Rate 65, NSR, normal axis, no ischemia
[2020-10-15] MEDS ORDERED: LABETALOL HCL IV 5 MG/ML 20ML IV STA (05:54)
[2020-10-15] MEDS ORDERED: amLODIPine BESYLATE 5 MG TAB PO ONE (06:20)
[2020-10-15 06:28] LABS: Partial Thromboplastin Time 27.5 Seconds (21.0-31.0)
[2020-10-15 06:35] LABS: D Dimer 690 ug/L FEU (0-500)
--- NOTE | 2020-10-15 06:43 | XRay Report ---
XR chest 1V portable CLINICAL HISTORY: weakness COMPARISON STUDY: Chest radiograph October 14, 2020. FINDINGS: Lung volumes are normal. There is no pneumothorax or pleural effusion. Pulmonary vascular c ongestion has improved. Cardiomegaly is unchanged. No consolidation is identified. IMPRESSION: 1. Interval resolution of pulmonary vascular congestion. 2. Stable cardiomegaly. ACT 112: Negative or not required by law. Electronically signed by: Fabio Dominguez M.D. 10/15/2020 6:41 AM
[2020-10-15] MEDS ORDERED: GLUCOSE 40% GEL 15 GM TUBE PO PRN (07:18)
[2020-10-15] MEDS ORDERED: PROMETHAZINE HCL 12.5 MG in SODIUM CHLORIDE 0.9% 50 ML IV PRN (07:18)
[2020-10-15] MEDS ORDERED: ACETAMINOPHEN 325 MG TAB PO PRN (07:18)
[2020-10-15] MEDS ORDERED: DEXTROSE 50% 50 ML SYRINGE IV PRN (07:18)
[2020-10-15] MEDS ORDERED: GLUCAGON FOR INJ 1 MG VIAL SQ PRN (07:18)
[2020-10-15] MEDS ORDERED: CARBOHYDRATES FOR HYPOGLYCEMIA PO PRN (07:18)
[2020-10-15] MEDS ORDERED: NITROGLYCERIN SL 0.4 MG/TAB TAB SL PRN (07:18)
[2020-10-15] MEDS ORDERED: GLUCOSE 10 TABS/TUBE PO PRN (07:18)
[2020-10-15] MEDS ORDERED: hydrALAZINE HCL 20 MG/ML VIAL IV PRN (07:39)
[2020-10-15] MEDS: amLODIPine BESYLATE 5 MG TAB PO SCH (08:17)
[2020-10-15] MEDS: carvediloL 25 MG TAB PO SCH ×2 (08:18→20:06)
[2020-10-15] MEDS: PANTOprazole 40 MG TAB PO SCH (08:18)
[2020-10-15] MEDS: CLOPIDOGREL BISULFATE 75 MG TAB PO SCH (08:18)
[2020-10-15] MEDS: FUROSEMIDE 40 MG TAB PO SCH ×2 (08:18→19:10)
[2020-10-15] MEDS: HEPARIN SOD 5,000 UNIT/0.5 ML VIAL SQ SCH ×3 (08:19→21:01)
[2020-10-15] MEDS: ASPIRIN 81 MG ECTAB PO SCH (08:19)
[2020-10-15] MEDS: INSULIN ASPART 100 UNITS/ML 3 ML PEN SC SCH ×4 (08:49→21:31)
[2020-10-15] MEDS: INSULIN GLARGINE SOLOSTAR 100 UNITS/ML 3 ML PEN SC SCH (08:51)
[2020-10-15] MEDS ORDERED: OPTIRAY 320 125ml IV ONE (09:49)
[2020-10-15] MEDS ORDERED: SODIUM CHLORIDE 0.9% 1000ML 1,000 ML IV PRN (10:06)
--- NOTE | 2020-10-15 10:15 | CT Scan Report ---
CT head/brain wo con CLINICAL HISTORY: ams COMPARISON STUDY: June 10, 2020 TECHNIQUE: Axial CT of the brain is performed from the vertex to the skull base. IV contrast was not administered for this examination. A dose lowering technique was utilized adhering to the principles of ALARA. CT DOSE: FINDINGS: No intra or extra-axial mass lesions are visualized. There is no CT evidence of acute cortical infarc tion. There is no evidence of midline shift. There is no acute hemorrhage. No acute depressed calvar ial fractures are visualized. There is no evidence of pathologic ventricular dilatation. 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 IMPRESSION: No acute intracranial hemorrhage, no midline shift or space occupying lesions. ACT 112: Negative or not required by law. The above report was generated using voice recognition software. It may contain grammatical, syntax o r spelling errors. Electronically signed by: Yazmin Banuelos DO 10/15/2020 10:13 AM
--- NOTE | 2020-10-15 10:23 | CT Scan Report ---
CT ANGIOGRAPHY OF THE CHEST, PULMONARY EMBOLUS PROTOCOL CLINICAL HISTORY: Shortness of breath. Evaluate for pulmonary embolus. COMPARISON STUDY: Chest radiograph October 14, 2020 and October 15, 2020. TECHNIQUE: Following IV administration of 120 mL of Optiray, helical axial images of the chest were o btained utilizing the pulmonary embolus protocol. Maximal intensity projections and sagittal and cor onal reformats were viewed on an independent 3D workstation. IV contrast was administered without co mplication. Automated exposure control was utilized for the study. A dose lowering technique was ut ilized adhering to the principles of ALARA. FINDINGS: No pulmonary emboli are identified. There is no thoracic aortic dissection. Note is made o f moderate to marked cardiomegaly. Small to moderate pericardial effusion is noted. No consolidation is identified. Interlobular lobular septal thickening represents pulmonary edema. Lungs are suboptima lly assessed due to respiratory motion. There are multiple mildly enlarged mediastinal lymph nodes. T here is no pneumothorax. Trace right pleural effusion is noted. Abdomen and pelvis will be reported s eparately. IMPRESSION: 1. No pulmonary emboli identified. 2. Moderate to marked cardiomegaly. 3. Small to moderate pericardial effusion. 4. Mild interstitial pulmonary edema. 5. Several mildly enlarged mediastinal lymph nodes. These are nonspecific. ACT 112: Negative or not required by law. Electronically signed by: Fabio Dominguez M.D. 10/15/2020 10:21 AM
--- NOTE | 2020-10-15 10:42 | CT Scan Report ---
CT OF THE ABDOMEN AND PELVIS WITH CONTRAST CLINICAL HISTORY: back pain/hx retroperitoneal lymphadenopathy COMPARISON STUDY: CT of the abdomen and pelvis November 28, 2011. Right upper quadrant ultrasound Januar 2012. Renal ultrasound February 13, 2018. TECHNIQUE: Following IV administration of 120 mL of Optiray, axial images of the abdomen and pelvis w ere obtained from the lung bases to the proximal femurs. Images were reviewed in the axial, sagittal, and coronal planes. IV contrast was administered without complication. Automated exposure control w as utilized for the study. A dose lowering technique was utilized adhering to the principles of ALAR A. CT DOSE: 2765.54 mGy.cm FINDINGS: Please note that the chest CT will be reported separately. No pneumatosis, free air or port al venous gas is present. A small amount of perihepatic ascites is noted. No hepatic lesions are iden tified. There are gallstones within the gallbladder. There is mild gallbladder wall thickening. The g allbladder is not distended. The spleen, adrenal glands and pancreas are unremarkable. There is bilat eral renal atrophy. There is no hydronephrosis. Extensive vascular calcification is present. Prominen t retroperitoneal lymph nodes are noted. There is no evidence for a bowel obstruction. A moderate arianne unt of stool within the colon and rectum is noted. The appendix is normal. No acute fracture or suspi cious lesion is identified within the visualized skeletal structures. IMPRESSION: 1. No bowel obstruction. Moderate amount stool within the colon and rectum. 2. Small amount of ascites. 3. Cholelithiasis. Mild gallbladder wall thickening, a nonspecific finding. No convincing evidence fo r acute cholecystitis. 4. Prominent retroperitoneal lymph nodes. These are nonspecific although not overtly suspicious. 5. Extensive vascular calcification. 6. Mild bladder wall thickening which could be correlated with urinalysis. ACT 112: Negative or not required by law. Electronically signed by: Fabio Dominguez M.D. 10/15/2020 10:41 AM
[2020-10-15] MEDS ORDERED: HEPARIN SOD (PORCINE) 1000 UNIT/ML IV SCH (11:00)
[2020-10-15] MEDS ORDERED: EPOETIN ALFA 10,000 UNITS/ML VIAL IV SCH (11:00)
--- NOTE | 2020-10-15 11:55 | Consultation Report ---
DATE OF CONSULTATION: 10/15/2020. REASON FOR CONSULTATION: Dialysis patient admitted with shortness of breath. HISTORY OF PRESENT ILLNESS: The patient is a 45-year-old male with ESRD, on chronic home hemodialysi s. He presented to the hospital earlier today because of shortness of breath as well as feeling "loo py secondary to muscle relaxants." It is worth noting that the patient was just admitted in hospital from 10/07/2020 to 10/13/2020 for severe back pain attributed to acute lumbar radiculopathy with disk prolapse. During that admission, he was managed medically with Medrol pack as well as muscle relaxa nt, which was making him very sleepy. After that, the patient got short of breath. The patient was brought to the Emergency Department yesterday also for evaluation. Chest x-ray showed cardiomegaly a nd interstitial thickening with some pulmonary edema. 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 The patient is still short of breath at this time. His blood pressure is running high. PAST MEDICAL AND SURGICAL HISTORY: Includes coronary artery disease, status post stent, hypertension , hyperlipidemia, severe pulmonary hypertension on recent CT, possible obstructive sleep apnea, type 1 diabetes, ESRD on hemodialysis, chronic home hemodialysis. 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 FAMILY HISTORY: Diabetes and stroke. PERSONAL AND SOCIAL HISTORY: Chews tobacco. No alcohol. 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 ALLERGIES: List was reviewed in detail. HOME MEDICATIONS: List was reviewed in detail. FAMILY HISTORY: Negative for renal disease or dialysis, but positive for diabetes. REVIEW OF SYSTEMS: As stated in the HPI, unless stated otherwise, 12 systems reviewed and negative. PHYSICAL EXAMINATION: GENERAL: A middle-aged white male who is slightly obese. He is not in overt respiratory distress at this time and he was able to speak a full sentence without short of breath. HEENT: Mucous membranes moist. NECK: Supple. No jugular venous distention. VITAL SIGNS: Most recent blood pressure is 156/87, pulse rate 65, temperature 36 degrees celsius, 98 % on 2 liters nasal cannula. CHEST: Bilateral clear to auscultation. CARDIOVASCULAR. S1, S2 regular. ABDOMEN: Soft, nontender, slightly obese. EXTREMITIES: Shows no edema. SKIN: Shows no rashes. LABORATORY DATA: Laboratory tests from this morning shows BUN 65, creatinine 7.3, sodium 135, potass ium 5.1, magnesium 2.6. IMAGING DATA: CT angiogram of the chest was done just now and did not show any pulmonary embolus. T here is some cardiomegaly with [id number] pericardial effusion as well as pulmonary edema. ASSESSMENT AND PLAN: A 45-year-old male with end-stage renal disease related with type 1 diabetes, o n chronic home hemodialysis, admitted with shortness of breath and excessive sleepiness. End-stage renal disease: Given his blood pressure is high and his chest x-ray as well as CT chest fi nding, there is no question he has pulmonary edema and he needs to be more aggressively diuresed with dialysis. The patient likes to self dictate a lot of aspects of medical care including the amount o f fluid. Ideally, I want to take even more fluid than what he is allowing. [facility] of dialysis today to take 3 kilos off today as well as 4 hours of dialysis and 3 k ilo tomorrow. He has agreed to that plan. Unless we take more fluid off, I do not believe his blood pressure and his shortness of breath will get better. As for the sedation, it is quite possible that he is having some side effect related to the muscle relaxant. Even the treatment for that is prolon ged dialysis, which will help clear the metabolites faster. Job ID: [id number]
[2020-10-15] MEDS: methylPREDNISolone 4 MG TAB PO SCH ×3 (12:09→20:04)
[2020-10-15] MEDS: traMADol HCL 50 MG TABLET PO PRN ×2 (12:36→22:32)
[2020-10-15] MEDS: hydrALAZINE TAB 50 MG TAB PO SCH ×2 (13:23→20:05)
--- NOTE | 2020-10-15 16:59 | Electrocardiogram Report ---
Test Reason : Blood Pressure : / mmHG Vent. Rate : 064 BPM Atrial Rate : 064 BPM P-R Int : 170 ms QRS Dur : 088 ms QT Int : 440 ms P-R-T Axes : 040 029 088 degrees QTc Int : 454 ms Normal sinus rhythm When compared with ECG of 14-OCT-2020 06:10, Premature ventricular complexes are no longer Present Confirmed by Moses Alarcon ([id number]) on 10/15/2020 4:59:42 PM Referred By: REFERRED SELF Confirmed By:Roni Alarcon
--- NOTE | 2020-10-15 17:05 | Hospitalist Progress Note ---
Date of Service October 15, 2020 Assessment & Plan (1) SOB (shortness of breath): Possible related because not enough fluid removes during dialysis CXR showed interval resolution of pulmonary vascular congestion. CTA chest showed no pulmonary emboli identified. Moderate to marked cardiomegaly. Small to moderate pericardial effusion. Mild interstitial pulmonary edema. COVID 19 negative Plan to get HD today Saturated well on RA currently Continue monitor closely Lethargy/Drowsiness Possible related to medication such baclofen/Percocet CT head showed no acute intracranial abnormality Symptoms should improve after HD Clinically improves significant ESRD On Dialysis Will get HD done today Nephrology on board Mediastinal lymph nodes. CT abd/pelvis showed prominent retroperitoneal lymph nodes. These are nonspecific although not overtly suspicious. Finding discussed with patient Pt said that he already arranged for follow up Will need outpatient follow up CAD s/p stent Continue Aspirin, Carvedilol, plavix and Atorvastatin Stable Diabetes type 1 Most recent hba1c 6.4 on 10/18 Continue novolog and lantus sliding scale with on prednisone HTN BP uncontrolled Will continue hydralazine 100mg TID and carvedilol and terazosin 4mg HS Starting on Amlodipine 2.5 mg Continue monitor DVT px on heparin subq Medical telemetry CODE STATUS Full code Patient's requesting updates from providers. Ms. Teressa Gerard, contact numbers [phone]. Admission and Anticipated Discharge Date Admission Date: October 15, 2020 Subjective Pt was seen and examined for follow up hypoxia and lethargy Pt said that she feels a little better He said that that he can feel that he started to retain fluid after drinking the contrast He said that he is not having much pain now His very reluctant to get a lot of fluid removes during dialysis because it causes him to have more pain Denies any chest pain, palpitation, dizziness and fever Review of Systems Review of Systems: All systems reviewed & are unremarkable except as noted in Subjective Physical Exam Physical Exam: General- No acute distress Head- atraumatic Eyes- PERRL, EOMI, ENT- oropharynx clear Neck- supple, no JVD Lungs- clear to auscultation Heart- regular rhythm; no murmur Abdomen- normal bowel sounds, soft, nontender Extremities- no calf tenderness Neuro- alert, oriented x 3; PERRL, EOMI; no facial palsy; no dysarthria Skin- warm & dry Results & Data Results & Data ([facility]) Vital Signs (Past 12 Hours) Vital Signs Temp Pulse Pulse Resp BP BP Pulse Ox 10/15/20 16:00 90 150/96 H 10/15/20 15:40 88 158/81 H 10/15/20 15:20 87 147/84 H 10/15/20 15:00 78 163/98 H 10/15/20 14:40 78 163/98 H 10/15/20 14:20 88 167/105 H 10/15/20 14:05 36.9 C 88 10/15/20 11:37 36.6 C 83 20 170/92 H 97 10/15/20 10:29 156/87 H 10/15/20 07:29 204/78 H 10/15/20 06:29 65 18 189/80 H 98 10/15/20 05:52 66 16 216/114 H 100
[2020-10-15] MEDS: HEPARIN SOD (PORCINE) 1000 UNIT/ML IV SCH ×2 (17:57→17:58)
[2020-10-15] MEDS ORDERED: LEVALBUTEROL 1.25MG/0.5ML NEB NEB PRN (19:19)
[2020-10-15] MEDS: TERAZOSIN HCL 1 MG CAP PO SCH (20:03)
[2020-10-15] MEDS: ATORVASTATIN 40 MG TAB PO SCH (20:07)
[2020-10-16] MEDS ORDERED: LORazepam 0.25 MG/0.5 ML VIAL IV STA (00:35)
[2020-10-16] MEDS ORDERED: ACETAMINOPHEN 1000 MG/100 ML IV IV ONE (00:35)
[2020-10-16] MEDS ORDERED: LORazepam 0.25 MG/0.5 ML VIAL IV PRN ×2 (04:52→04:58)
[2020-10-16] MEDS: HEPARIN SOD 5,000 UNIT/0.5 ML VIAL SQ SCH ×3 (06:20→20:46)
[2020-10-16] MEDS: methylPREDNISolone 4 MG TAB PO SCH ×4 (06:21→17:46)
[2020-10-16] MEDS ORDERED: SODIUM CHLORIDE 0.9% 1000ML 1,000 ML IV PRN (07:00)
[2020-10-16 08:16] LABS: Hematocrit (blood only) 30.6 % (42-52); Hemoglobin 9.9 g/dL (14.0-18.0); Immature Granulocytes # (auto) 0.04 K/uL (0.00-0.02); Immature Granulocytes % (auto) 0.4 %; Lymphocytes # (auto) 0.57 K/uL (1.2-3.4); Lymphocytes % (auto) 6.2 %; Mean Corpuscular Hgb Conc 32.4 g/dL (32-36); Mean Corpuscular Volume 95.9 fL (80-100); Mean Platelet Volume 9.4 fL (7.4-10.4); Monocytes # (auto) 0.96 K/uL (0.11-0.59); Monocytes % (auto) 10.5 %; Neutrophils # (auto) 7.59 K/uL (1.4-6.5); Neutrophils % (auto) 82.9 %; Platelet Count 140 K/uL (130-400); RDW Coefficient of Variation 15.7 % (11.5-14.5); RDW Standard Deviation 54.5 fL (36.4-46.3); Red Blood Count 3.19 M/uL (4.7-6.1); White Blood Count 9.16 K/uL (4.8-10.8)
[2020-10-16 08:43] LABS: BUN Creatinine Ratio 8.4 (10-20); Calcium 9.3 mg/dl (8.5-10.1); Creatinine Clr Calc Pharmacy 21.1 ml/min; Est GFR (African American) 14.2 ml/min; Est GFR (Non-African American) 12.2 ml/min; Potassium 4.4 mmol/L (3.5-5.1)
[2020-10-16] MEDS: ASPIRIN 81 MG ECTAB PO SCH (09:17)
[2020-10-16] MEDS: CLOPIDOGREL BISULFATE 75 MG TAB PO SCH (09:17)
[2020-10-16] MEDS: carvediloL 25 MG TAB PO SCH ×2 (09:17→20:40)
[2020-10-16] MEDS: PANTOprazole 40 MG TAB PO SCH (09:17)
[2020-10-16] MEDS: amLODIPine BESYLATE 5 MG TAB PO SCH (09:17)
[2020-10-16] MEDS: FUROSEMIDE 40 MG TAB PO SCH ×2 (09:18→17:46)
[2020-10-16] MEDS: hydrALAZINE TAB 50 MG TAB PO SCH ×3 (09:18→20:41)
[2020-10-16] MEDS: INSULIN ASPART 100 UNITS/ML 3 ML PEN SC SCH ×4 (09:19→20:37)
[2020-10-16] MEDS: INSULIN GLARGINE SOLOSTAR 100 UNITS/ML 3 ML PEN SC SCH (09:21)
--- NOTE | 2020-10-16 15:30 | Nephrology Progress Note ---
Date of Service October 16, 2020 Assessment & Plan (1) CKD (chronic kidney disease) stage 5, GFR less than 15 ml/min: On home hemodialysis. He was advised to resume his outpatient treatment prescription if/when discharged; next HD 10/18 or a sclinical needs dictate Present on Admission?: Yes (2) Labile hypertension: continue frequent HD, home medications Present on Admission?: Yes (3) Acute left lumbar radiculopathy: Plan for outpatient orthopedics consultation and to continue pain management recommendations from admission Present on Admission?: Yes Admission and Anticipated Discharge Date Admission Date: October 15, 2020 Subjective Seen late this afternoon shortly after he completed his dialysis treatment. He feels that he has had adequate if not excessive fluid removal during these past admissions. His is at bedside. She notes that he recently had Ativan and is slightly affected by this. Back pain well controlled currently on steroids Review of Systems Review of Systems: All systems reviewed & are unremarkable except as noted in Subjective Physical Exam Constitutional: well developed and well nourished; no acute distress On room air sitting on the side of the bed Eyes: EOM intact bilaterally ENMT: Ears: no external ear abnormality Nose: no external nose abnormality Mouth: + dry oral mucous membranes Neck: no nuchal rigidity Respiratory: normal respiratory effort Auscultation: lungs clear to auscultation bilaterally and + diminished lung sounds Cardiovascular: Rate/Rhythm: regular rhythm and + tachycardic Extremities: + AV fistula (+t/b); no edema Gastrointestinal (Abdomen): Inspection/Auscultation: normal bowel sounds; abdomen not distended Percussion/Palpation: abdomen soft; abdomen nontender and no guarding Musculoskeletal: Extremities: strength 5/5 throughout Skin: no rashes, warm and dry Neurologic: hoover, fluent speech, no tremor Psychiatric: A+Ox3, euthymic affect Patient has slight trouble finding words and seems a bit tired, slightly lethargic otherwise mental status at baseline Results & Data ([facility]) Vital Signs (Past 12 Hours) Vital Signs Temp Pulse Pulse Resp BP BP Pulse Ox 10/16/20 14:00 89 136/79 10/16/20 13:40 89 170/90 H 10/16/20 13:20 89 176/88 H 10/16/20 13:00 88 194/104 H 10/16/20 12:40 86 195/107 H 10/16/20 12:20 88 185/95 H 10/16/20 12:00 88 199/112 H 10/16/20 11:40 86 195/107 H 10/16/20 11:20 88 207/108 H 10/16/20 11:00 89 174/105 H 10/16/20 10:46 88 191/106 H 10/16/20 10:33 90 199/105 H 10/16/20 10:10 36.5 C 91 H 10/16/20 08:00 88 10/16/20 07:51 36.4 C L 90 18 180/70 H 98 10/16/20 04:00 36.6 C 72 18 135/72 98 Laboratory Results 10/16/20 07:58 Basic metabolic panel this morning: Sodium 134, potassium 4.4, chloride 99, bicarb 27, BUN 42, creatinine 5.2, calcium 9.3 PTH pending as is post BUN Diagnostic Findings CT angio PE protocol yesterday FINDINGS: No pulmonary emboli are identified. There is no thoracic aortic dissection. Note is made of moderate to marked cardiomegaly. Small to moderate pericardial effusion is noted. No consolidation is identified. Interlobular lobular septal thickening represents pulmonary edema. Lungs are suboptimally assessed due to respiratory motion. There are multiple mildly enlarged medias tinal lymph nodes. There is no pneumothorax. Trace right pleural effusion is noted. Abdomen and pelvis will be reported separately. IMPRESSION: 1. No pulmonary emboli identified. 2. Moderate to marked cardiomegaly. 3. Small to moderate pericardial effusion. 4. Mild interstitial pulmonary edema. 5. Several mildly enlarged mediastinal lymph nodes. These are nonspecific. CT abdomen pelvis yesterday with contrast FINDINGS: Please note that the chest CT will be reported separately. No pneumatosis, free air or portal venous gas is present. A small amount of perihepatic ascites is noted. No hepatic lesions are identified. There are gallstones within the gallbladder. There is mild gallbladder wall thickening. The gallbladder is not distended. The spleen, adrenal glands and pancreas are unremarkable. There is bilateral renal atrophy. There is no hydronephrosis. Extensive vascular calcification is present. Prominent retroperitoneal lymph nodes are noted. There is no evidence for a bowel obstruction. A moderate amount of stool within the colon and rectum is noted. The appendix is normal. No acute fracture or suspicious lesion is identified within the visualized skeletal structures. IMPRESSION: 1. No bowel obstruction. Moderate amount stool within the colon and rectum. 2. Small amount of ascites. 3. Cholelithiasis. Mild gallbladder wall thickening, a nonspecific finding. No convincing evidence for acute cholecystitis. 4. Prominent retroperitoneal lymph nodes. These are nonspecific although not overtly suspicious. 5. Extensive vascular calcification. 6. Mild bladder wall thickening which could be correlated with urinalysis. Head CT yesterday a.m. without acute intracranial process
[2020-10-16 15:34] LABS: BUN Creatinine Ratio 7.4 (10-20); Calcium 9.1 mg/dl (8.5-10.1); Creatinine Clr Calc Pharmacy 51.7 ml/min; Est GFR (African American) 42.2 ml/min; Est GFR (Non-African American) 36.4 ml/min; Potassium 3.3 mmol/L (3.5-5.1)
--- NOTE | 2020-10-16 18:13 | Hospitalist Progress Note ---
Date of Service October 16, 2020 Assessment & Plan (1) SOB (shortness of breath): Possible related because not enough fluid removes during dialysis CXR showed interval resolution of pulmonary vascular congestion. CTA chest showed no pulmonary emboli identified. Moderate to marked cardiomegaly. Small to moderate pericardial effusion. Mild interstitial pulmonary edema. COVID 19 negative Had HD done today Saturated well on RA currently Continue monitor closely Lethargy/Drowsiness Possible related to medication such baclofen/Percocet CT head showed no acute intracranial abnormality Symptoms should improve after HD Clinically improves significant ESRD On Dialysis Nephrology on board HD completed today Mediastinal lymph nodes. CT abd/pelvis showed prominent retroperitoneal lymph nodes. These are nonspecific although not overtly suspicious. Finding discussed with patient Pt said that he already arranged for follow up Will need outpatient follow up CAD s/p stent Continue Aspirin, Carvedilol, plavix and Atorvastatin Stable Diabetes type 1 Most recent hba1c 6.4 on 10/18 BS elevated possible due to Steroid Continue novolog and lantus sliding scale with on prednisone Continie monitor BS HTN BP uncontrolled Will continue hydralazine 100mg TID and carvedilol and terazosin 4mg HS Will increase Amlodipine to 5mg Continue monitor DVT px on heparin subq Medical telemetry CODE STATUS Full code Patient's requesting updates from providers. Ms. Teressa Gerard, contact numbers [phone]. Admission and Anticipated Discharge Date Admission Date: October 15, 2020 Subjective Pt was seen and examined for follow up hypoxia and lethargy Sitting at the edge of the bed with at bedside Pt had dialysis done this morning and he just got back from it Pt said that he slept well last night after they gave her a tab of ativan because he was anxious He said that he felt a little sleepy today He said that he is not having any pain He said that his breathing feels better Denies any chest pain, palpitation, dizziness and SOB Review of Systems Review of Systems: All systems reviewed & are unremarkable except as noted in Subjective Physical Exam Physical Exam: General- No acute distress Head- atraumatic Eyes- PERRL, EOMI, ENT- oropharynx clear Neck- supple, no JVD Lungs- clear to auscultation Heart- regular rhythm; no murmur Abdomen- normal bowel sounds, soft, nontender Extremities- no calf tenderness Neuro- alert, oriented x 3; PERRL, EOMI; no facial palsy; no dysarthria Skin- warm & dry Results & Data Results & Data ([facility]) Vital Signs (Past 12 Hours) Vital Signs Temp Pulse Pulse Resp BP BP Pulse Ox 10/16/20 16:35 36.8 C 90 18 160/100 H 98 10/16/20 15:25 36.6 C 90 157/78 H 10/16/20 14:20 90 147/74 H 10/16/20 14:00 89 136/79 10/16/20 13:40 89 170/90 H 10/16/20 13:20 89 176/88 H 10/16/20 13:00 88 194/104 H 10/16/20 12:40 86 195/107 H 10/16/20 12:20 88 185/95 H 10/16/20 12:00 88 199/112 H 10/16/20 11:40 86 195/107 H 10/16/20 11:20 88 207/108 H 10/16/20 11:00 89 174/105 H 10/16/20 10:46 88 191/106 H 10/16/20 10:33 90 199/105 H 10/16/20 10:10 36.5 C 91 H 10/16/20 08:00 88 10/16/20 07:51 36.4 C L 90 18 180/70 H 98
[2020-10-16] MEDS ORDERED: LORazepam 0.5 MG TAB PO PRN (18:24)
[2020-10-16] MEDS: ATORVASTATIN 40 MG TAB PO SCH (20:38)
[2020-10-16] MEDS: TERAZOSIN HCL 1 MG CAP PO SCH (20:39)
[2020-10-16] MEDS ORDERED: methylPREDNISolone 4 MG TAB PO SCH (21:00)
[2020-10-17] MEDS: traMADol HCL 50 MG TABLET PO PRN (01:15)
[2020-10-17] MEDS: HEPARIN SOD 5,000 UNIT/0.5 ML VIAL SQ SCH ×2 (06:09→15:17)
[2020-10-17] MEDS: methylPREDNISolone 4 MG TAB PO SCH ×2 (06:09→12:25)
[2020-10-17 07:50] LABS: Calcium 8.7 mg/dl (8.5-10.1); Creatinine Clr Calc Pharmacy 24.8 ml/min; Est GFR (African American) 17.7 ml/min; Est GFR (Non-African American) 15.3 ml/min; Phosphorus 3.4 mg/dl (2.5-4.9)
[2020-10-17] MEDS: CLOPIDOGREL BISULFATE 75 MG TAB PO SCH (09:05)
[2020-10-17] MEDS: amLODIPine BESYLATE 5 MG TAB PO SCH (09:05)
[2020-10-17] MEDS: hydrALAZINE TAB 50 MG TAB PO SCH ×2 (09:06→15:17)
[2020-10-17] MEDS: PANTOprazole 40 MG TAB PO SCH (09:06)
[2020-10-17] MEDS: ASPIRIN 81 MG ECTAB PO SCH (09:06)
[2020-10-17] MEDS: carvediloL 25 MG TAB PO SCH (09:06)
[2020-10-17] MEDS: INSULIN GLARGINE SOLOSTAR 100 UNITS/ML 3 ML PEN SC SCH (09:07)
[2020-10-17] MEDS: FUROSEMIDE 40 MG TAB PO SCH (09:07)
[2020-10-17] MEDS: INSULIN ASPART 100 UNITS/ML 3 ML PEN SC SCH ×2 (09:08→12:24)
[2020-10-17] MEDS ORDERED: amLODIPine BESYLATE 5 MG TAB PO SCH (09:15)
--- NOTE | 2020-10-17 14:44 | Discharge Summary ---
Date of Service October 17, 2020 Admission HPI Per Admitting Provider History obtained from patient, family, and records. Medical history significant for CAD status post stent, hypertension, hyperlipidemia, severe pulmonary hypertension on recent TTE 2019, possible LUZ, DM1, ESRD on HD, chronic anemia (baseline hemoglobin of 10), retroperitoneal/gastrohepatic/portacaval/lymphadenopathy on recent CT (2015). Last confinement October 07-2020 for severe back pain attributed to acute lum bar radiculopathy with disc prolapse. pain management recommended Medrol Dosepak which improved pain. Patient also started on Baclofen 10 mg 3 times daily which was making patient very sleepy. Patient hydralazine dose increased 50 mg to 100 mg TID on discharge for uncontrolled blood pressure. Patient sleeping a lot at home as per . Intermittent shortness of breath without unusual cough symptoms or chest pain. Patient woke up very short of breath yesterday morning. O2 sats noted to be 60s on room air on home pulse ox for a brief moment. O2 sats consistently greater than 92% upon EMS arrival. Patient brought to the ER for evaluation yesterday morning. Chest x-ray showed cardiomegaly and interstitial thickening/mild asymmetric right lung opacities, pulmonary edema versus infectious process. Patient instructed to go to scheduled hemodialysis session yesterday morning and to stop Baclofen due to sedation. Patient also advised by medical provider to hold off on taking home Percocet while with episodes of sleepiness. Patient still with shortness of breath at rest at home even after dialysis session. Arms and legs somewhat restless as per . Still falling asleep from time to time. Patient denies headaches. Patient brought to the ER by for evaluation. MEDICAL HISTORY: As above. 2018 colonoscopy showed internal hemorrhoids SURGICAL HISTORY: He had multiple laser surgeries for his retinopathy, dental surgery, enucleation left eye, detached retina repair FAMILY HISTORY: Diabetes. Stroke. 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 Admission Exam Per Admitting Provider GENERAL: Comfortable, obese, awake with episodic lethargy, no respiratory distress SKIN: Sallow, warm HEENT: pale palpebral conjunctivae, chronic ptosis left, dry buccal mucosa NECK : Supple, short neck, no tenderness CHEST : CTA, no tenderness HEART : RRR, no obvious murmurs ABDOMEN: Some distention, nontender EXTREMITIES : Minimal LE swelling, no LE tenderness, no other conspicuous deformities noted NEUROLOGIC : Coherent with episodic sleepiness, chronic ptosis left, no facial asymmetry, no other gross focality Principal Diagnosis SOB (shortness of breath): Lethargy/Drowsiness ESRD On Dialysis Mediastinal lymph nodes. CAD s/p stent Diabetes type 1 Hypertension Discharge Exam General- No acute distress Head- atraumatic Eyes- PERRL, EOMI, ENT- oropharynx clear Neck- supple, no JVD Lungs- clear to auscultation Heart- regular rhythm; no murmur Abdomen- normal bowel sounds, soft, nontender Extremities- no calf tenderness Neuro- alert, oriented x 3; PERRL, EOMI; no facial palsy; no dysarthria Skin- warm & dry Discharge Data Allergies Allergy/AdvReac Type Severity Reaction Status Date / Time benzonatate Allergy Unknown told not Verified 10/14/20 08:07 to take ibuprofen Allergy Unknown told not Verified 10/14/20 08:07 to take baclofen AdvReac Severe sedation/co Verified 10/15/20 05:41 nfusion oxycodone AdvReac Intermediate Confusion Verified 10/14/20 08:07 FRED Inhibitors AdvReac Unknown Unknown Verified 10/14/20 08:07 Consultations 10/15/20 04:52 ED Decision to Admit Stat 10/15/20 06:54 Consult Nephrology Routine Ordered Studies 10/15/20 07:00 CT abd pelvis oral and IV con Urgent CT angio chest PE protocol Urgent CT head/brain wo con Urgent CT head/brain wo con CLINICAL HISTORY: ams COMPARISON STUDY: June 10, 2020 TECHNIQUE: Axial CT of the brain is performed from the vertex to the skull base. IV contrast was not administered for this examination. A dose lowering technique was utilized adhering to the principles of ALARA. CT DOSE: FINDINGS: No intra or extra-axial mass lesions are visualized. There is no CT evidence of acute cortical infarction. There is no evidence of midline shift. There is no acute hemorrhage. No acute depressed calvarial fractures are visualized. There is no evidence of pathologic ventricular dilatation. 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 IMPRESSION: No acute intracranial hemorrhage, no midline shift or space occupying lesions. ACT 112: Negative or not required by law. The above report was generated using voice recognition software. It may contain grammatical, syntax or spelling errors. Electronically signed by: Yazmin Banuelos DO 10/15/2020 10:13 AM Dictated: 10/15/20 1011Transcribed: 10/15/[address] ANGIOGRAPHY OF THE CHEST, PULMONARY EMBOLUS PROTOCOL CLINICAL HISTORY: Shortness of breath. Evaluate for pulmonary embolus. COMPARISON STUDY: Chest radiograph October 14, 2020 and October 15, 2020. TECHNIQUE: Following IV administration of 120 mL of Optiray, helical axial images of the chest were obtained utilizing the pulmonary embolus protocol. Maximal intensity projections and sagittal and coronal reformats were viewed on an independent 3D workstation. IV contrast was administered without complication. Automated exposure control was utilized for the study. A dose lowering technique was utilized adhering to the principles of ALARA. FINDINGS: No pulmonary emboli are identified. There is no thoracic aortic dissection. Note is made of moderate to marked cardiomegaly. Small to moderate pericardial effusion is noted. No consolidation is identified. Interlobular lobular septal thickening represents pulmonary edema. Lungs are suboptimally assessed due to respiratory motion. There are multiple mildly enlarged mediastinal lymph nodes. There is no pneumothorax. Trace right pleural effusion is noted. Abdomen and pelvis will be reported separately. IMPRESSION: 1. No pulmonary emboli identified. 2. Moderate to marked cardiomegaly. 3. Small to moderate pericardial effusion. 4. Mild interstitial pulmonary edema. 5. Several mildly enlarged mediastinal lymph nodes. These are nonspecific. ACT 112: Negative or not required by law. Electronically signed by: Fabio Dominguez M.D. 10/15/2020 10:21 AM Dictated: 10/15/20 1010Transcribed: 10/15/[address] OF THE ABDOMEN AND PELVIS WITH CONTRAST CLINICAL HISTORY: back pain/hx retroperitoneal lymphadenopathy COMPARISON STUDY: CT of the abdomen and pelvis November 28, 2011. Right upper q uadrant ultrasound May 13, 2012. Renal ultrasound February 13, 2018. TECHNIQUE: Following IV administration of 120 mL of Optiray, axial images of the abdomen and pelvis were obtained from the lung bases to the proximal femurs. Images were reviewed in the axial, sagittal, and coronal planes. IV contrast was administered without complication. Automated exposure control was utilized for the study. A dose lowering technique was utilized adhering to the principles of ALARA. CT DOSE: 2765.54 mGy.cm FINDINGS: Please note that the chest CT will be reported separately. No pneumatosis, free air or portal venous gas is present. A small amount of perihepatic ascites is noted. No hepatic lesions are identified. There are gallstones within the gallbladder. There is mild gallbladder wall thickening. The gallbladder is not distended. The spleen, adrenal glands and pancreas are unremarkable. There is bilateral renal atrophy. There is no hydronephrosis. Extensive vascular calcification is present. Prominent retroperitoneal lymph nodes are noted. There is no evidence for a bowel obstruction. A moderate amount of stool within the colon and rectum is noted. The appendix is normal. No acute fracture or suspicious lesion is identified within the visualized skeletal structures. IMPRESSION: 1. No bowel obstruction. Moderate amount stool within the colon and rectum. 2. Small amount of ascites. 3. Cholelithiasis. Mild gallbladder wall thickening, a nonspecific finding. No convincing evidence for acute cholecystitis. 4. Prominent retroperitoneal lymph nodes. These are nonspecific although not overtly suspicious. 5. Extensive vascular calcification. 6. Mild bladder wall thickening which could be correlated with urinalysis. ACT 112: Negative or not required by law. Electronically signed by: Fabio Dominguez M.D. 10/15/2020 10:41 AM Dictated: 10/15/20 1022Transcribed: 10/15/20 1034 XR chest 1V portable CLINICAL HISTORY: weakness COMPARISON STUDY: Chest radiograph October 14, 2020. FINDINGS: Lung volumes are normal. There is no pneumothorax or pleural effusion. Pulmonary vascular congestion has improved. Cardiomegaly is unchanged. No consolidation is identified. IMPRESSION: 1. Interval resolution of pulmonary vascular congestion. 2. Stable cardiomegaly. ACT 112: Negative or not required by law. Electronically signed by: Fabio Dominguez M.D. 10/15/2020 6:41 AM Dictated: 10/15/20 0641Transcribed: 10/15/20 0641 Hospital Course (1) SOB (shortness of breath): Possible related because not enough fluid removes during dialysis CXR showed interval resolution of pulmonary vascular congestion. CTA chest showed no pulmonary emboli identified. Moderate to marked cardiomegaly. Small to moderate pericardial effusion. Mild interstitial pulmonary edema. COVID 19 negative Had HD done today Saturated well on RA currently Continue monitor closely Lethargy/Drowsiness Possible related to medication such baclofen/Percocet CT head showed no acute intracranial abnormality Symptoms should improve after HD Clinically improves significant Pt would like to go home today because his Sons are coming home to visit him Will discontinue baclofen and Percocet on discharge ESRD On Dialysis Nephrology on board HD completed yesterday, next HD schedule for 10/[address] abd/pelvis showed prominent retroperitoneal lymph nodes. These are nonspecific although not overtly suspicious. Finding discussed with patient Pt said that he already arranged for follow up Will need outpatient follow up CAD s/p stent Continue Aspirin, Carvedilol, plavix and Atorvastatin Stable Diabetes type 1 Most recent hba1c 6.4 on 10/18 BS elevated possible due to Steroid Continue novolog and lantus sliding scale with on prednisone Continue monitor BS HTN BP uncontrolled Continue hydralazine 100mg TID and carvedilol and terazosin 4mg HS Amlodipine increased to 5mg, will discharge on it Continue monitor DVT px on heparin subq CODE STATUS Full code Discharge home today Patient's requesting updates from providers. Ms. Teressa Gerard, contact numbers [phone]. Total Time Total Time Spent Total Time Spent (In Minutes): 35 minutes Total Time Includes: Examination of the Patient, Discharge Planning, Medication Reconciliation, Communication With Other Providers and Other Discharge Plan Discharge Items Patient Disposition: Home - Self-Care Reason For Visit: SOB Discharge Diagnosis: SOB (shortness of breath): Lethargy/Drowsiness ESRD On Dialysis Mediastinal lymph nodes. CAD s/p stent Diabetes type 1 Hypertension Condition on Discharge: Fair Activity: Resume your previous activity Non-emergency contact: Primary Care Provider Call non-emergency contact if: you have any medication questions, your symptoms worsen and your pain is not controlled Follow-up/Referrals: Misti Glover CRNP [Primary Care Provider] - Diet: Carb Count or DM1 Addtl Attending Provider Instructions: Follow up with your primary care provider Misti Glover CRNP on 10/18/20 @ 12PM Your next dialysis schedule for 10/18/20 Continue steroid for 2 more days, then stop Continue monitor your blood sugar and bring you blood sugar log at your next appointment with your provider Continue monitor your blood pressure (Bring your blood pressure log at your next appointment with your provider) Continue outpatient follow up for the mediastinal lymph node Pending Studies at Discharge: No Stand-Alone Forms: My [employer], Smoking Cessation Medications and DC Order Prescriptions: New amlodipine [Norvasc] 5 mg Tablet 5 mg PO QAM 30 Days Qty: 30 RF: 0 Continued furosemide [Lasix] 40 mg Tablet 40 mg PO BID RF: 0 atorvastatin 40 mg Tablet 40 mg PO HS RF: 0 carvedilol 25 mg Tablet 50 mg PO BID RF: 0 clopidogrel 75 mg Tablet 75 mg PO DAILY RF: 0 terazosin 2 mg Capsule 4 mg PO HS RF: 0 nitroglycerin [Nitrostat] 0.4 mg Tablet, Sublingual 0.4 mg Sublingual DIRECTED PRN (Reason: Chest Pain) RF: 0 omeprazole 20 mg Capsule,Delayed Release(Dr/Ec) 20 mg PO QAM RF: 0 insulin aspart U-100 [Novolog Flexpen U-100 Insulin] 100 unit/mL Insulin Pen 0 unit SUBCUT DIRECTED RF: 0 aspirin 81 mg Tablet,Delayed Release (Dr/Ec) 81 mg PO DAILY RF: 0 methylprednisolone [Medrol (Jose)] 4 mg tablets,dose pack 4 mg PO UD Qty: 21 RF: 0 hydralazine 100 mg tablet 100 mg PO TID RF: 0 Discontinued oxycodone-acetaminophen [Percocet] 5-325 mg tablet 1 tab PO Q6H PRN (Reason: pain) Qty: 15 RF: 0 Discharge Orders: Discharge Order (Routine); Ordered 10/17/20 Ordered By: Elisabet Schultz Admission Data Admit Date/Time: 10/15/20 05:34 Attending Provider: Elisabet Schultz Admit Provider: Parvez Lamas Primary Care Provider: Misti Glover Other Providers: Parvez Lamas ; Dahiana Rojas ; Luis Deal ; Misti Glover ; Vikki Perez Japheth E. ; Kenneth Lennon Other Interventions: Discharge Summary Assessment (RN) Last Done: 10/17/20 15:05
[2020-10-18] MEDS ORDERED: methylPREDNISolone 4 MG TAB PO SCH (07:00)
[2020-10-19] MEDS ORDERED: methylPREDNISolone 4 MG TAB PO SCH (07:00)
[2020-10-20] MEDS ORDERED: methylPREDNISolone 4 MG TAB PO SCH (07:00)
== END 2020-10-17 16:03 | disposition home or self-care (01) ==
LOC: 2N 03:54 → ED 03:54 → 2N 06:29

== ENCOUNTER 2021-08-08 18:28 | Inpatient (IN) ==
[2021-08-08] MEDS ORDERED: SODIUM CHLORIDE 0.9% 1000ML 1,000 ML IV SCH (18:45)
[2021-08-08] MEDS ORDERED: SODIUM CHLORIDE 0.9% 1000ML 500 ML IV ONE (18:49)
[2021-08-08 19:18] LABS: INR 1.2 (0.9-1.1); Partial Thromboplastin Time 27.7 Seconds (21.0-31.0); Prothrombin Time 12.4 Seconds (9.0-12.0)
[2021-08-08 19:26] LABS: iSTAT Creatinine 8.1 mg/dl (0.6-1.3); iSTAT Hemoglobin 7.1 g/dl (14.0-18.0); iSTAT Ionized Calcium 1.12 mmol/l (1.12-1.32); iSTAT Potassium 4.7 mmol/L (3.3-5.0)
[2021-08-08 19:33] LABS: Troponin I 0.11 ng/ml (0-0.04)
[2021-08-08 19:53] LABS: Basophils # (auto) 0.04 K/uL (0-0.2); Basophils % (auto) 0.6 %; Eosinophils # (auto) 0.11 K/uL (0-0.5); Eosinophils % (auto) 1.6 %; Hematocrit (blood only) 21.2 % (42-52); Hemoglobin 7.2 g/dL (14.0-18.0); Immature Granulocytes # (auto) 0.02 K/uL (0.00-0.02); Immature Granulocytes % (auto) 0.3 %; Lymphocytes # (auto) 1.05 K/uL (1.2-3.4); Lymphocytes % (auto) 15.7 %; Mean Corpuscular Hemoglobin 32.6 pg (25-34); Mean Corpuscular Volume 95.9 fL (80-100); Mean Platelet Volume 9.5 fL (7.4-10.4); Monocytes # (auto) 0.56 K/uL (0.11-0.59); Monocytes % (auto) 8.4 %; Neutrophils # (auto) 4.89 K/uL (1.4-6.5); Neutrophils % (auto) 73.4 %; Platelet Count 222 K/uL (130-400); RDW Coefficient of Variation 15.4 % (11.5-14.5); RDW Standard Deviation 53.8 fL (36.4-46.3); Red Blood Count 2.21 M/uL (4.7-6.1); White Blood Count 6.67 K/uL (4.8-10.8)
--- NOTE | 2021-08-08 19:56 | XRay Report ---
XR chest 1V portable HISTORY: 46 years-old Male SEPSIS acute sepsis COMPARISON: CTA chest 10/15/2020, chest radiograph 10/15/2020 TECHNIQUE: Portable AP view of the chest FINDINGS: Cardiomegaly with pulmonary vascular congestion. There is no pneumothorax or large pleural effusion. No lobar airspace consolidation. The bones appear grossly intact. IMPRESSION: Cardiomegaly with pulmonary vascular congestion. ACT 112: Negative or not required by law. The above report was generated using voice recognition software. It may contain grammatical, syntax o r spelling errors. Electronically signed by: Amor Scott M.D. 08/08/2021 7:55 PM
[2021-08-08 19:57] LABS: Albumin Globulin Ratio 1.4 (0.9-2); Albumin Level 4.1 gm/dl (3.4-5.0); BUN Creatinine Ratio 6.4 (10-20); Bilirubin,Total 0.4 mg/dl (0.2-1.0); Calcium 8.9 mg/dl (8.5-10.1); Creatinine Clr Calc Pharmacy 13.6 ml/min; Est GFR (African American) 8.3 ml/min; Est GFR (Non-African American) 7.2 ml/min; Globulin 2.9 gm/dl (2.5-4.0); Magnesium 2.1 mg/dl (1.7-2.4); Potassium 4.7 mmol/L (3.5-5.1)
[2021-08-08] MEDS ORDERED: SODIUM CHLORIDE 0.9% 250 ML IV PRN (20:09)
[2021-08-08 20:30] LABS: Polychromasia 1+
[2021-08-08 20:33] LABS: Adenovirus PCR Not Detected (NotDetected); Bordetella parapertussis PCR Not Detected (NotDetected); Bordetella pertussis PCR Not Detected (NotDetected); Chlamydia pneumoniae PCR Not Detected (NotDetected); Coronavirus 229E PCR Not Detected (NotDetected); Coronavirus CoV-2 (COVID19)PCR Not Detected (NotDetected); Coronavirus HKU1 PCR Not Detected (NotDetected); Coronavirus NL63 PCR Not Detected (NotDetected); Coronavirus OC43PCR Not Detected (NotDetected); Human Metapneumovirus PCR Not Detected (NotDetected); Influenza A PCR Not Detected (NotDetected); Influenza B PCR Not Detected (NotDetected); Mycoplasma pneumoniae PCR Not Detected (NotDetected); Parainfluenza Virus 1 PCR Not Detected (NotDetected); Parainfluenza Virus 2 PCR Not Detected (NotDetected); Parainfluenza Virus 3 PCR Not Detected (NotDetected); Parainfluenza Virus 4 PCR Not Detected (NotDetected); Respiratory Syncytial VirusPCR Not Detected (NotDetected); Rhinovirus/Enterovirus PCR Not Detected (NotDetected)
[2021-08-08] MEDS ORDERED: INSULIN ASPART PER UNIT SC STA (21:47)
--- NOTE | 2021-08-08 21:48 | History & Physical Report ---
Date of Service August 08, 2021 Assessment & Plan (1) Symptomatic anemia: Plan: Patient is a 46-year-old male with PMH CAD s/p stent, DM I, ESRD on home HD, HTN, dyslipidemia, fatty liver, GERD, obesity presented to ER with complaint of increasing shortness of breath for the past week, lightheadedness and low home BP's. Reported downtrending Hgb on home lab draws. Denies any signs or symptoms of bleeding. In ER patient afebrile, P: 60, BP 77/44, 100% on room air. No leukocytosis. CXR: Pulmonary vascular congestion. Respiratory panel negative In ER given 500 mL NSS with BP up to 92/50 Hgb: 7.2. Baseline ~10 Receiving Epogen 3 times a week ER contacted on-call nephrology who had recommended transfusing 1 unit PRBC Lasix 40 mg IV CBC in a.m. (2) ESRD (end stage renal disease) on dialysis: Plan: On HD at home. Reports does HD 5 times a week. Last dialysis 08/07/2021 Resume patient's home Lasix 40 mg p.o. twice daily tomorrow Nephrology consult for assistance with dialysis and further volume status recommendations (3) Elevated troponin: Plan: Troponin: 0.11. EKG ST depression lateral leads. Patient denies chest pain May be elevated secondary to demand ischemia with anemia or secondary to ESRD Trend troponin Echo EKG Consult cardiology if up trending troponins (4) Coronary artery disease: Plan: S/p stent Continue aspirin, carvedilol, Plavix, statin (5) DM I (diabetes mellitus, type I): Plan: Type I DM per outpatient records A1c: 6.2 on 06/25/2021, however patient with ESRD NovoLog sliding scale at home, however patient reports is not taking his insulin as he feels his glucose is removed with dialysis. Is not on long acting insulin. Today in ER glucose: 362 Give insulin R 10 units IV now Basal bolus insulin per protocol Glycemic consult for assistance with glycemic management (6) Hypertension: Plan: BP is low in ER Hold amlodipine, hydralazine, Terazosin Continue carvedilol with holding parameters (7) Dyslipidemia: Plan: Continue statin (8) Carotid artery stenosis: Plan: Continue aspirin, Plavix, statin DVT Prophylaxis SCDs witih anemia Full Code as per discussion with pt Follows with Dr Swan for routine care Pt was seen and care coordinated with Dr Richardson. See addendum History of Present Illness Chief Complaint: Shortness of breath Primary Care Provider: Grayson Swan MD Patient is a 46-year-old male with PMH CAD s/p stent, DM I, ESRD on home HD, HTN, dyslipidemia, fatty liver, GERD, obesity presented to ER with complaint of increasing shortness of breath for the past week. Patient reports orthopnea and shortness of breath with exertion. Feeling lightheaded with standing. Denies chest pain, cough. He reports he does home hemodialysis and last treatment was last night. Patient reports typically does HD every other day. He states he has been taking his blood pressure at home and it has been trending downward. He also reports past month his hemoglobin has been downtrending and his Epogen has been increased to 3 times a week. Patient feels he is at his dry weight within a couple of pounds. Denies LE edema. Does feel that is abdomen is more firm than usual. Patient reports makes small amount of urine. Denies epistaxis, hematochezia, melena. Denies fever/chills, diaphoresis, N/V/D/C, COOPER, syncope, vision changes, neck pain, palpitations, sore throat, choking, otalgia, rhinorrhea, abdominal pain, paresthesias, weakness, rashes, urinary symptoms. Allergies Allergy/AdvReac Type Severity Reaction Status Date / Time benzonatate Allergy Unknown told not Verified 08/08/21 18:57 to take ibuprofen Allergy Unknown told not Verified 08/08/21 18:57 to take baclofen AdvReac Severe sedation/co Verified 08/08/21 18:57 nfusion oxycodone AdvReac Intermediate Confusion Verified 08/08/21 18:57 FRED Inhibitors AdvReac Unknown Unknown Verified 08/08/21 18:57 Home Medications Medication Instructions Recorded Confirmed Type atorvastatin 40 mg tablet 40 mg PO HS 02/13/18 08/08/21 History carvedilol 25 mg tablet 50 mg PO BID 02/13/18 08/08/21 History clopidogrel 75 mg tablet 75 mg PO DAILY 02/13/18 08/08/21 History furosemide 40 mg tablet (Lasix) 40 mg PO BID 02/13/18 08/08/21 History insulin aspart U-100 100 unit/mL 0 unit SUBCUT TID PRN 02/13/18 08/08/21 History (3 mL) subcutaneous pen (Novolog Flexpen U-100 Insulin aspart) nitroglycerin 0.4 mg sublingual 0.4 mg SUBLINGUAL DIRECTED PRN 02/13/18 08/08/21 History tablet (Nitrostat) omeprazole 20 mg capsule,delayed 20 mg PO QAM 02/13/18 08/08/21 History release terazosin 2 mg capsule 4 mg PO HS 02/13/18 08/08/21 History aspirin 81 mg tablet,delayed 81 mg PO DAILY 06/10/20 08/08/21 History release hydralazine 100 mg tablet 100 mg PO TID 10/14/20 08/08/21 History oxycodone-acetaminophen 5 mg-325 1 tab PO BID PRN 08/08/21 08/08/21 History mg tablet Past Med/Surg History Medical History (Updated 08/08/21 @ 21:45 by Liberty Smith PA-C) Acute left lumbar radiculopathy Bilateral carotid artery stenosis Monitored with Carotid Doppler q6 months. 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 Carotid artery stenosis Coronary artery disease Diabetes mellitus, insulin-dependent (IDDM or type I) DM I (diabetes mellitus, type I) Dyslipidemia ESRD (end stage renal disease) on dialysis GERD (gastroesophageal reflux disease) Gout Hypertension Hypertensive urgency Labile hypertension Orthostatic hypotension Presence of artificial eye LEFT Weakness Surgical History History of discectomy LUMBAR History of eye surgery MULTIPLE EYE SURGERIES S/T COMPLICATIONS OF DIABETES INCLUDING DETACHED RETINA, DSEAK PROCEDURES, AND ENUCLEATION OF LEFT EYE Status post cardiac catheterization Status post coronary artery stent placement 2009, NO HX OF CA. [facility]. Family History Other Cancer Diabetes Gallbladder disease Heart disease Hypertension Social History Smoking Status: Never smoker Tobacco Type: Smokeless Tobacco (Dip or Chew) Second Hand Exposure: No; Hx Alcohol Use: No Hx Substance Use: No Preferred Language: [place] Communication Ability: Effective Visual Impairment: Blindness Irrigationist Required: No Beliefs That Will Affect Care: None marital status: Current Living Situation: Spouse current occupational status: disabled Feels Safe at Home: Yes Assistive Devices: None Review of Systems Review of Systems: All systems reviewed & are unremarkable except as noted in HPI & below Physical Exam Physical Exam: General: no distress, overweight Head: normocephalic, atraumatic Eyes: PERRL, EOM's intact, conjunctiva non-injected, anicteric ENT: normal inspection external ears, nose, mucous membranes moist Neck: supple, trachea midline Lungs: clear, no respiratory distress, no wheezing/rhonchi/rales CV: RRR, no murmur, trace pretibial edema Abd: protuberant, normal BS, soft, non-tender Ext: no cyanosis, no calf tenderness Neuro: A&O x 3, no focal deficits noted, normal affect Skin: warm, dry Results & Data Results & Data ([facility]) Vital Signs (Past 12 Hours) Vital Signs Temp Pulse Pulse Resp BP BP Pulse Ox 08/08/21 21:00 64 20 99/47 L 99 08/08/21 19:29 67 20 131/47 L 96 08/08/21 18:31 36.2 C L 68 22 77/44 L 100 Laboratory Results Short CBC 08/08/21 Range/Units 18:54 WBC 6.67 (4.8-10.8) K/uL Hgb 7.2 L (14.0-18.0) g/dL Hct 21.2 L (42-52) % Plt Count 222 (130-400) K/uL BMP 08/08/21 18:54 Sodium 131 L Potassium 4.7 Chloride 91 L Carbon Dioxide 27 BUN 51 H Creatinine 7.98 H* Glucose 362 H* Calcium 8.9 Cardiac Enzymes 08/08/21 Range/Units 18:54 Troponin I 0.11 H* (0-0.04) ng/ml Liver Function 08/08/21 Range/Units 18:54 Total Bilirubin 0.4 (0.2-1.0) mg/dl AST 7 L (13-39) U/L ALT 6 L (7-52) U/L Alkaline Phosphatase 71 (34-104) U/L Albumin 4.1 (3.4-5.0) gm/dl Diagnostic Findings Chest X-Ray 08/08/21 18:39 XR chest 1V portable HISTORY: 46 years-old Male SEPSIS acute sepsis COMPARISON: CTA chest 10/15/2020, chest radiograph 10/15/2020 TECHNIQUE: Portable AP view of the chest FINDINGS: Cardiomegaly with pulmonary vascular congestion. There is no pneumothorax or large pleural effusion. No lobar airspace consolidation. The bones appear grossly intact. IMPRESSION: Cardiomegaly with pulmonary vascular congestion. ACT 112: Negative or not required by law. The above report was generated using voice recognition software. It may contain grammatical, syntax or spelling errors. Electronically signed by: Amor Scott M.D. 08/08/2021 7:55 PM Code Status & VTE Plan VTE Prophylaxis Plan VTE Prophylaxis will be ordered: Yes Supervising Physician Co-Signing Physician Notes I have seen and examined the patient at bedside in presence of his . I have reviewed the chart and discussed the case with Liberty MULLIGAN. In summary, this is a 46-year-old male with history of ESRD on hemodialysis at home up to 5 times a week presented to ED with shortness of breath and orthopnea for the past week and sleeping in a recliner. He gets dialysis at home by himself and does the labs too. He transfuses iron himself as well as give Epogen shot. States his hemoglobin has been trending down for the past few weeks. States his weight is about the same and does not feel swollen up. States dyspnea is positional and not related to exertion. Denies fever, chills, cough, chest pain, pressures. States he had dialysis yesterday and was going to get done again tonight if he was home but he is here for anemia and transfusion. He would like to go home tomorrow to get his dialysis. He makes some urine, about 12 ounces a day. He has not been taking his insulin stating his A1c is around 5.7, his blood sugars at home is in 120s-150s and his dialysis takes care of his blood sugar. In the ED, he was afebrile, BP on low normal side. Sitting in bed, AAOx4, breathing comfortably in room air, saturation 99%. No conversational dyspnea or shortness of breath. Chest clear, heart sounds normal. LUE fistula. Trace edema in LE. Hb 7.2, trop 0.1, BG 462, procal negative, WBC normal, respiratory pathogen panel n egative, CXR with some pulm vasc congestion. ED physician discussed with nephro and planning for 1 U of PRBC. Will give it slow to prevent pulmonary edema and acute worsening of shortness of breath, will give a dose of lasix jail through the transfusion as long as BP tolerates. If he gets acutely dyspneic, consider BIPAP. Consult nephrology. Will give iv insulin x1 for hyperglycemia and monitor. Counseled in detail regarding the need for regular BG check and insulin and not rely on HA1c in an ESRD patient on dialysis with anemia. Mild trop elevation is likely demand ischemia in setting of his ESRD and anemia, denies any chest pain. Trend trop for completeness along with repeat EKG in am. Rest per the note above.
[2021-08-08] MEDS ORDERED: NovoLIN-R INSULIN PER UNIT CHARGE IV STA (21:52)
[2021-08-08] MEDS ORDERED: PHARMACY GLYCEMIC MGMT CONSULT PRN (22:39)
[2021-08-08] MEDS ORDERED: DEXTROSE 50% 50 ML SYRINGE IV PRN (22:39)
[2021-08-08] MEDS ORDERED: FUROSEMIDE 40 MG/4 ML VIAL IV ONE (22:39)
[2021-08-08] MEDS ORDERED: GLUCOSE 10 TABS/TUBE PO PRN (22:39)
[2021-08-08] MEDS ORDERED: NITROGLYCERIN SL 0.4 MG/TAB TAB SL PRN (22:39)
[2021-08-08] MEDS ORDERED: GLUCAGON FOR INJ 1 MG VIAL SQ PRN (22:39)
[2021-08-08] MEDS ORDERED: GLUCOSE 40% GEL 15 GM TUBE PO PRN (22:39)
[2021-08-08] MEDS ORDERED: ACETAMINOPHEN 325 MG TAB PO PRN (22:39)
[2021-08-08] MEDS ORDERED: CARBOHYDRATES FOR HYPOGLYCEMIA PO PRN (22:39)
[2021-08-09] MEDS ORDERED: INSULIN GLARGINE SOLOSTAR 100 UNITS/ML 3 ML PEN SC ONE ×2 (00:12→09:00)
--- NOTE | 2021-08-09 00:20 | Emergency Department Note ---
History of Present Illness General Chief complaint: Shortness of Breath/Dyspnea Stated complaint: SOB, LOW BLOOD PRESSURE, RINGING IN HEAD Time Seen by Provider: 08/08/21 18:38 History of Present Illness Provider complaint: Shortness of breath fatigue Onset (ago): week(s) 1 Associated symptoms: + shortness of breath and + weakness; no chest pain, no c ough, no headaches or no nausea/vomiting 46-year-old male with history of end-stage renal disease on home hemodialysis presents emergency department with shortness of breath. Patient reports his symptoms are present for last week. Denies any chest pain. Denies any hemoptysis. No fevers. No melena hematochezia. No hematuria dysuria. Patient reports he did a full session of dialysis last night and does not feel like he has increased water weight as his legs are not swollen and he is at his normal dry weight. Patient states he took his blood pressure today and it was low so became concerned and came to the emergency department. Home Medications Medication Instructions Recorded Confirmed Type atorvastatin 40 mg tablet 40 mg PO HS 02/13/18 08/08/21 History carvedilol 25 mg tablet 50 mg PO BID 02/13/18 08/08/21 History clopidogrel 75 mg tablet 75 mg PO DAILY 02/13/18 08/08/21 History furosemide 40 mg tablet (Lasix) 40 mg PO BID 02/13/18 08/08/21 History insulin aspart U-100 100 unit/mL 0 unit SUBCUT TID PRN 02/13/18 08/08/21 History (3 mL) subcutaneous pen (Novolog Flexpen U-100 Insulin aspart) nitroglycerin 0.4 mg sublingual 0.4 mg SUBLINGUAL DIRECTED PRN 02/13/1808/08 History tablet (Nitrostat) omeprazole 20 mg capsule,delayed 20 mg PO QAM 02/13/18 08/08/21 History release terazosin 2 mg capsule 4 mg PO HS 02/13/18 08/08/21 History aspirin 81 mg tablet,delayed 81 mg PO DAILY 06/10/20 08/08/21 History release hydralazine 100 mg tablet 100 mg PO TID 10/14/20 08/08/21 History oxycodone-acetaminophen 5 mg-325 1 tab PO BID PRN 08/08/21 08/08/21 History mg tablet Allergies Allergy/AdvReac Type Severity Reaction Status Date / Time benzonatate Allergy Unknown told not Verified 08/08/21 18:57 to take ibuprofen Allergy Unknown told not Verified 08/08/21 18:57 to take baclofen AdvReac Severe sedation/co Verified 08/08/21 18:57 nfusion oxycodone AdvReac Intermediate Confusion Verified 08/08/21 18:57 FRED Inhibitors AdvReac Unknown Unknown Verified 08/08/21 18:57 Past Med/Surg History Medical History Acute left lumbar radiculopathy Bilateral carotid artery stenosis Monitored with Carotid Doppler q6 months. 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 Carotid artery stenosis Coronary artery disease Diabetes mellitus, insulin-dependent (IDDM or type I) DM I (diabetes mellitus, type I) Dyslipidemia ESRD (end stage renal disease) on dialysis GERD (gastroesophageal reflux disease) Gout Hypertension Hypertensive urgency Labile hypertension Orthostatic hypotension Presence of artificial eye LEFT Weakness Surgical History History of discectomy LUMBAR History of eye surgery MULTIPLE EYE SURGERIES S/T COMPLICATIONS OF DIABETES INCLUDING DETACHED RETINA, DSEAK PROCEDURES, AND ENUCLEATION OF LEFT EYE Status post cardiac catheterization Status post coronary artery stent placement 2009, NO HX OF [facility]. Family History Other Cancer Diabetes Gallbladder disease Heart disease Hypertension Social History Smoking Status: Never smoker Tobacco Type: Smokeless Tobacco (Dip or Chew) Second Hand Exposure: No; Do You Dip or Chew Tobacco: Yes; Hx Alcohol Use: No Hx Substance Use: No Preferred Language: Nauruan Communication Ability: Effective Visual Impairment: Blindness Hammer Smith Required: No Beliefs That Will Affect Care: None marital status: Current Living Situation: Spouse current occupational status: disabled Feels Safe at Home: Yes Safety Concerns: Feels Safe At This Time Assistive Devices: None Review of Systems A total of 10 systems reviewed and were otherwise negative Physical Exam Vital Signs Vital Signs - 24 hr 08/08/21 18:31 08/08/21 18:54 08/08/21 19:29 Temperature 36.2 C L Temperature Source Temporal Artery Scan Pulse Rate 68 Pulse Rate [Right Finger] 67 Pulse Rhythm Regular Pulse Rhythm [Right Finger] Regular Pulse Strength Normal Pulse Strength [Right Finger] Normal Respiratory Rate 22 20 Respiratory Effort / Characteristics Non-Labored Spontaneous Spontaneous Non-Labored Respiratory Depth Normal Normal Respiratory Pattern Regular Regular Regular Blood Pressure 77/44 L Blood Pressure [Right Arm] 131/47 L Blood Pressure Mean 55 Blood Pressure Mean [Right Arm] 75 Blood Pressure Position Sitting Blood Pressure Position [Right Arm] Sitting Pulse Oximetry 100 96 Oxygen Delivery Method Room Air Room Air Room Air Sepsis Recent Fever Within 48 Hours No Sepsis New/Unexplained Change in Mental Status N/A Sepsis Action Taken by Nursing Physician Notified Physical Exam HENT: Exam performed. - Head: Normocephalic and atraumatic. - Right Ear: External ear normal. No mastoid tenderness. - Left Ear: External ear normal. No mastoid tenderness. - Mouth/Throat: The oropharynx is clear and moist. No trismus in the jaw. No dental abscesses or uvula swelling. No oropharyngeal exudate or tonsillar abscesses. EYES: Conjunctivae and EOM are normal. Pupils are equal, round, and reactive to light. Right eye exhibits no discharge. Left eye exhibits no discharge. No s cleral icterus. NECK: Normal range of motion. Neck supple. No JVD present. No spinous process tenderness present. No carotid bruit present. No rigidity. No tracheal deviation and normal range of motion present. No Brudzinski's sign and no Kernig's sign noted. CV: Normal rate, regular rhythm, normal heart sounds and intact distal pulses. There is no peripheral edema. Palpable radial pulses bue. PULM/CHEST: Effort normal and breath sounds normal. No respiratory distress. No stridor. He has no wheezes. He has no rales. - Chest Wall: He exhibits no tenderness. ABD: The abdomen is soft. Bowel sounds are normal. He has no distension. No mass is present. There is no tenderness. There is no rebound, no guarding, no Leger's sign and no tenderness at McBurney's point. Rovsig negative. Rectal: No bright red blood per rectum. Hemoccult negative. MUSC/SKEL: Left upper extremity AV fistula. LYMPH: No cervical adenopathy. NEURO: He is alert and oriented to person, place, and time. He has normal strength. No cranial nerve deficit or sensory deficit. Coordination and gait normal. GCS eye subscore is 4. GCS verbal subscore is 5. GCS motor subscore is 6. Cerebellar tests wnl. SKIN: Pale Course Course 183: The patient was evaluated in room B9. A complete history and physical exam was performed Cardiac monitoring: An order was placed for continuous cardiac monitoring. The monitor shows a rate of 80 with sinus rhythm Patient be found to be hypotensive on arrival. 500 cc normal saline bolus ordered for the patient. 1929: Blood pressure normalized after 500 cc normal saline bolus. 2006: Vital signs stable. Hemoglobin 7.2. Potassium 4.7. Creatinine 7.98. 0.11. Patient reporting chest pain. Patient states his hemoglobin usually runs 110 and he gets chemo shots. Discussed the case with [facility] nephrology on- call Dr. Buitrago and he states we can transfuse patient 1 unit packed red blood cells. Patient will be admitted to the [facility] hospitalist team. Administered Medications Discontinued Medications Sodium Chloride (Nss 1000ml) 1,000 mls @ 999 mls/hr IV .Q1H1M GHAZALA Stop: 08/08/21 19:45 Last Admin: 08/08/21 19:03 Dose: Not Given Documented by: [id number] Sodium Chloride (Nss 1000ml) 500 mls @ 999 mls/hr IV .Q31M ONE Stop: 08/08/21 19:19 Last Infusion: 08/08/21 19:39 Dose: 0 mls/hr Documented by: [id number] Admin: 08/08/21 19:03 Dose: 999 mls/hr Documented by: [id number] Insulin Aspart (Insulin Aspart Per Unit) 5 units SC NOW STA Stop: 08/08/21 21:48 Last Admin: 08/08/21 22:12 Dose: Not Given Documented by: [id number] Cosigned by: [id number] Insulin Human Regular (Novolin-R Insulin Per Unit Charge) 10 units IV NOW STA Stop: 08/08/21 21:53 Last Admin: 08/08/21 22:12 Dose: 10 units Documented by: [id number] Cosigned by: [id number] Critical Care Time Critical Care Time: Yes Total Critical Care Time: 48 I have personally spent greater than 48 minutes of critical care time in the direct management of this patient. This includes bedside care, interpretation of diagnostic studies, and testing, discussion with consultants, patient, and family members, and other required patient management activities. This 48 minutes is in excess of all separately billable procedures. Medical Decision Making Laboratory Data Result diagrams: 08/08/21 18:54 08/08/21 18:54 Lab Results 08/08/21 08/08/21 08/08/21 Range/Units 18:54 18:54 18:54 WBC 6.67 (4.8-10.8) K/uL RBC 2.21 L (4.7-6.1) M/uL Hgb 7.2 L (14.0-18.0) g/dL POC Hgb (14.0-18.0) g/dl Hct 21.2 L (42-52) % POC Hct (42-52) % MCV 95.9 (80-100) fL MCH 32.6 (25-34) pg MCHC 34.0 (32-36) g/dL RDW Std Deviation 53.8 H (36.4-46.3) fL RDW Coeff of Nessa 15.4 H (11.5-14.5) % Plt Count 222 (130-400) K/uL MPV 9.5 (7.4-10.4) fL Immature Gran % (Auto) 0.3 % Neut % (Auto) 73.4 % Lymph % (Auto) 15.7 % Cache % (Auto) 8.4 % Eos % (Auto) 1.6 % Baso % (Auto) 0.6 % Neut # (Auto) 4.89 (1.4-6.5) K/uL Lymph # (Auto) 1.05 L (1.2-3.4) K/uL Cache # (Auto) 0.56 (0.11-0.59) K/uL Eos # (Auto) 0.11 (0-0.5) K/uL Baso # (Auto) 0.04 (0-0.2) K/uL Immature Gran # (Auto) 0.02 (0.00-0.02) K/uL Polychromasia 1+ PT 12.4 H (9.0-12.0) Seconds INR 1.2 H (0.9-1.1) APTT 27.7 (21.0-31.0) Seconds PTT Ratio 1.0 POC Sodium (135-144) mmol/L Sodium 131 L (136-145) mmol/L POC Potassium (3.3-5.0) mmol/L Potassium 4.7 (3.5-5.1) mmol/L POC Chloride (101-112) mmol/L Chloride 91 L (98-107) mmol/L Carbon Dioxide 27 (21-32) mmol/L POC Total CO2 (24-31) mmol/L Anion Gap 13 H (3-11) POC Anion Gap (16-25) mmol/L POC BUN (7-18) mg/dl BUN 51 H (6-23) mg/dl Creatinine 7.98 H* (0.6-1.4) mg/dl POC Creatinine (0.6-1.3) mg/dl Est Cr Clr Drug Dosing 13.6 ml/min Est GFR ( Amer) 8.3 ml/min Est GFR (Non-Af Amer) 7.2 ml/min BUN/Creatinine Ratio 6.4 L (10-20) Glucose 362 H* (70-99(Fasting)) mg/dl POC Glucose (other) (70-99) mg/dl Lactate (0.4-2.0) mmol/L Calcium 8.9 (8.5-10.1) mg/dl POC Ioniz Calcium Dhaval (1.12-1.32) mmol/l Magnesium 2.1 (1.7-2.4) mg/dl Total Bilirubin 0.4 (0.2-1.0) mg/dl AST 7 L (13-39) U/L ALT 6 L (7-52) U/L Alkaline Phosphatase 71 (34-104) U/L Troponin I 0.11 H* (0-0.04) ng/ml Total Protein 7.0 (6.0-8.3) gm/dl Albumin 4.1 (3.4-5.0) gm/dl Globulin 2.9 (2.5-4.0) gm/dl Albumin/Globulin Ratio 1.4 (0.9-2) Procalcitonin (0-0.5) ng/ml Adenovirus (PCR) (NotDetected) B. pertussis DNA (PCR) (NotDetected) B.parapertussis DNA PCR (NotDetected) C. pneumoniae DNA (PCR) (NotDetected) Coronavirus OC43 (PCR) (NotDetected) Coronavirus HKU1 (PCR) (NotDetected) Coronavirus 229E (PCR) (NotDetected) SARS-CoV-2 (PCR) (NotDetected) Coronavirus NL63 (PCR) (NotDetected) Human Metapneumovir PCR (NotDetected) Influenza Type A (PCR) (NotDetected) Influenza Type B (PCR) (NotDetected) M. pneumoniae (PCR) (NotDetected) Parainfluenza 1 (PCR) (NotDetected) Parainfluenza 2 (PCR) (NotDetected) Parainfluenza 3 (PCR) (NotDetected) Parainfluenza 4 (PCR) (NotDetected) RSV (PCR) (NotDetected) Entero/Rhino (PCR) (NotDetected) Blood Type Antibody Screen Crossmatch 08/08/21 08/08/21 08/08/21 Range/Units 18:54 19:01 19:12 WBC (4.8-10.8) K/uL RBC (4.7-6.1) M/uL Hgb (14.0-18.0) g/dL POC Hgb 7.1 L (14.0-18.0) g/dl Hct (42-52) % POC Hct 21 L (42-52) % MCV (80-100) fL MCH (25-34) pg MCHC (32-36) g/dL RDW Std Deviation (36.4-46.3) fL RDW Coeff of Nessa (11.5-14.5) % Plt Count (130-400) K/uL MPV (7.4-10.4) fL Immature Gran % (Auto) % Neut % (Auto) % Lymph % (Auto) % Cache % (Auto) % Eos % (Auto) % Baso % (Auto) % Neut # (Auto) (1.4-6.5) K/uL Lymph # (Auto) (1.2-3.4) K/uL Cache # (Auto) (0.11-0.59) K/uL Eos # (Auto) (0-0.5) K/uL Baso # (Auto) (0-0.2) K/uL Immature Gran # (Auto) (0.00-0.02) K/uL Polychromasia PT (9.0-12.0) Seconds INR (0.9-1.1) APTT (21.0-31.0) Seconds PTT Ratio POC Sodium 130 L (135-144) mmol/L Sodium (136-145) mmol/L POC Potassium 4.7 (3.3-5.0) mmol/L Potassium (3.5-5.1) mmol/L POC Chloride 91 L (101-112) mmol/L Chloride (98-107) mmol/L Carbon Dioxide (21-32) mmol/L POC Total CO2 25 (24-31) mmol/L Anion Gap (3-11) POC Anion Gap 20.0 (16-25) mmol/L POC BUN 49 H (7-18) mg/dl BUN (6-23) mg/dl Creatinine (0.6-1.4) mg/dl POC Creatinine 8.1 H* (0.6-1.3) mg/dl Est Cr Clr Drug Dosing ml/min Est GFR ( Amer) ml/min Est GFR (Non-Af Amer) ml/min BUN/Creatinine Ratio (10-20) Glucose (70-99(Fasting)) mg/dl POC Glucose (other) 358 H* (70-99) mg/dl Lactate (0.4-2.0) mmol/L Calcium (8.5-10.1) mg/dl POC Ioniz Calcium Dhaval 1.12 (1.12-1.32) mmol/l Magnesium (1.7-2.4) mg/dl Total Bilirubin (0.2-1.0) mg/dl AST (13-39) U/L ALT (7-52) U/L Alkaline Phosphatase (34-104) U/L Troponin I (0-0.04) ng/ml Total Protein (6.0-8.3) gm/dl Albumin (3.4-5.0) gm/dl Globulin (2.5-4.0) gm/dl Albumin/Globulin Ratio (0.9-2) Procalcitonin 0.25 (0-0.5) ng/ml Adenovirus (PCR) (NotDetected) B. pertussis DNA (PCR) (NotDetected) B.parapertussis DNA PCR (NotDetected) C. pneumoniae DNA (PCR) (NotDetected) Coronavirus OC43 (PCR) (NotDetected) Coronavirus HKU1 (PCR) (NotDetected) Coronavirus 229E (PCR) (NotDetected) SARS-CoV-2 (PCR) (NotDetected) Coronavirus NL63 (PCR) (NotDetected) Human Metapneumovir PCR (NotDetected) Influenza Type A (PCR) (NotDetected) Influenza Type B (PCR) (NotDetected) M. pneumoniae (PCR) (NotDetected) Parainfluenza 1 (PCR) (NotDetected) Parainfluenza 2 (PCR) (NotDetected) Parainfluenza 3 (PCR) (NotDetected) Parainfluenza 4 (PCR) (NotDetected) RSV (PCR) (NotDetected) Entero/Rhino (PCR) (NotDetected) Blood Type A Positive Antibody Screen NEGATIVE Crossmatch See Detail 08/08/21 08/08/21 Range/Units 19:12 19:32 WBC (4.8-10.8) K/uL RBC (4.7-6.1) M/uL Hgb (14.0-18.0) g/dL POC Hgb (14.0-18.0) g/dl Hct (42-52) % POC Hct (42-52) % MCV (80-100) fL MCH (25-34) pg MCHC (32-36) g/dL RDW Std Deviation (36.4-46.3) fL RDW Coeff of Nessa (11.5-14.5) % Plt Count (130-400) K/uL MPV (7.4-10.4) fL Immature Gran % (Auto) % Neut % (Auto) % Lymph % (Auto) % Cache % (Auto) % Eos % (Auto) % Baso % (Auto) % Neut # (Auto) (1.4-6.5) K/uL Lymph # (Auto) (1.2-3.4) K/uL Cache # (Auto) (0.11-0.59) K/uL Eos # (Auto) (0-0.5) K/uL Baso # (Auto) (0-0.2) K/uL Immature Gran # (Auto) (0.00-0.02) K/uL Polychromasia PT (9.0-12.0) Seconds INR (0.9-1.1) APTT (21.0-31.0) Seconds PTT Ratio POC Sodium (135-144) mmol/L Sodium (136-145) mmol/L POC Potassium (3.3-5.0) mmol/L Potassium (3.5-5.1) mmol/L POC Chloride (101-112) mmol/L Chloride (98-107) mmol/L Carbon Dioxide (21-32) mmol/L POC Total CO2 (24-31) mmol/L Anion Gap (3-11) POC Anion Gap (16-25) mmol/L POC BUN (7-18) mg/dl BUN (6-23) mg/dl Creatinine (0.6-1.4) mg/dl POC Creatinine (0.6-1.3) mg/dl Est Cr Clr Drug Dosing ml/min Est GFR ( Amer) ml/min Est GFR (Non-Af Amer) ml/min BUN/Creatinine Ratio (10-20) Glucose (70-99(Fasting)) mg/dl POC Glucose (other) (70-99) mg/dl Lactate 2.0 (0.4-2.0) mmol/L Calcium (8.5-10.1) mg/dl POC Ioniz Calcium Dhaval (1.12-1.32) mmol/l Magnesium (1.7-2.4) mg/dl Total Bilirubin (0.2-1.0) mg/dl AST (13-39) U/L ALT (7-52) U/L Alkaline Phosphatase (34-104) U/L Troponin I (0-0.04) ng/ml Total Protein (6.0-8.3) gm/dl Albumin (3.4-5.0) gm/dl Globulin (2.5-4.0) gm/dl Albumin/Globulin Ratio (0.9-2) Procalcitonin (0-0.5) ng/ml Adenovirus (PCR) Not Detected (NotDetected) B. pertussis DNA (PCR) Not Detected (NotDetected) B.parapertussis DNA PCR Not Detected (NotDetected) C. pneumoniae DNA (PCR) Not Detected (NotDetected) Coronavirus OC43 (PCR) Not Detected (NotDetected) Coronavirus HKU1 (PCR) Not Detected (NotDetected) Coronavirus 229E (PCR) Not Detected (NotDetected) SARS-CoV-2 (PCR) Not Detected (NotDetected) Coronavirus NL63 (PCR) Not Detected (NotDetected) Human Metapneumovir PCR Not Detected (NotDetected) Influenza Type A (PCR) Not Detected (NotDetected) Influenza Type B (PCR) Not Detected (NotDetected) M. pneumoniae (PCR) Not Detected (NotDetected) Parainfluenza 1 (PCR) Not Detected (NotDetected) Parainfluenza 2 (PCR) Not Detected (NotDetected) Parainfluenza 3 (PCR) Not Detected (NotDetected) Parainfluenza 4 (PCR) Not Detected (NotDetected) RSV (PCR) Not Detected (NotDetected) Entero/Rhino (PCR) Not Detected (NotDetected) Blood Type Antibody Screen Crossmatch Imaging Data Radiologist's Impression: Chest X-Ray 08/08/21 18:39 XR chest 1V portable HISTORY: 46 years-old Male SEPSIS acute sepsis COMPARISON: CTA chest 10/15/2020, chest radiograph 10/15/2020 TECHNIQUE: Portable AP view of the chest FINDINGS: Cardiomegaly with pulmonary vascular congestion. There is no pneumothorax or large pleural effusion. No lobar airspace consolidation. The bones appear grossly intact. IMPRESSION: Cardiomegaly with pulmonary vascular congestion. ACT 112: Negative or not required by law. The above report was generated using voice recognition software. It may contain grammatical, syntax or spelling errors. Electronically signed by: Amor Scott M.D. 08/08/2021 7:55 PM ECG Data Indication: + SOB/dyspnea Rate (beats per minute): 69 Rhythm: + normal sinus ECG Intervals/blocks: + First degree AV block, + Normal QRS and + Normal QT-c ECG ST segments: + Normal ST segments MDM Narrative Vital signs stable. Hemoglobin 7.2. Potassium 4.7. Creatinine 7.98. 0.11. Patient reporting chest pain. Patient states his hemoglobin usually runs 110 and he gets chemo shots. Discussed the case with [facility] nephrology on-call Dr. Buitrago and he states we can transfuse patient 1 unit packed red blood cells. Patient will be admitted to the [facility] hospitalist team. Impression & Plan Anemia Discharge Plan Visit Data Chief Complaint: Shortness of Breath/Dyspnea Stated Complaint: SOB, LOW BLOOD PRESSURE, RINGING IN HEAD Discharge Problem: Anemia Patient Disposition: Admitted As Inpatient Discharge Instructions Interventions: ED Discharge Assessment Last Done: 08/08/21 22:23
[2021-08-09] MEDS: oxyCODONE/ACETAMINOPHEN 5mg/325mg TAB PO PRN ×2 (00:22→16:56)
[2021-08-09] MEDS ORDERED: LORazepam 2 MG/1 ML VIAL IV PRN (01:22)
[2021-08-09] MEDS: INSULIN ASPART PER UNIT SC SCH ×6 (02:05→22:13)
[2021-08-09 03:09] LABS: Appearance Urine Clear (Clear); Bacteria Urine Automated Negative (Negative); Bilirubin Urine Negative (Negative); Blood Urine Negative (Negative); Color Urine Yellow; Epithelial Cell Urine Auto >30 /lpf (0-5); Glucose Urine UA 3+ (Negative); Ketones Urine Negative (Negative); Leukocyte Esterase Urine Negative (Negative); Nitrite Urine Negative (Negative); Protein Urine 3+ (Negative); RBC Urine Automated 0-4 /hpf (0-4); Specific Gravity Urine 1.017 (1.000-1.030); Urobilinogen Urine Negative (Negative)
[2021-08-09] MEDS ORDERED: LORazepam 2 MG/1 ML VIAL IV STA (04:15)
[2021-08-09 05:44] LABS: Hematocrit (blood only) 24.2 % (42-52); Hemoglobin 8.2 g/dL (14.0-18.0); Mean Corpuscular Hgb Conc 33.9 g/dL (32-36); Mean Corpuscular Volume 94.5 fL (80-100); Mean Platelet Volume 8.9 fL (7.4-10.4); Platelet Count 192 K/uL (130-400); RDW Coefficient of Variation 16.3 % (11.5-14.5); RDW Standard Deviation 56.7 fL (36.4-46.3); Red Blood Count 2.56 M/uL (4.7-6.1); White Blood Count 7.03 K/uL (4.8-10.8)
[2021-08-09 06:00] LABS: BUN Creatinine Ratio 6.6 (10-20); Calcium 8.9 mg/dl (8.5-10.1); Creatinine Clr Calc Pharmacy 12.5 ml/min; Est GFR (African American) 7.5 ml/min; Est GFR (Non-African American) 6.4 ml/min; Potassium 4.2 mmol/L (3.5-5.1)
[2021-08-09] MEDS: carvediloL 25 MG TAB PO SCH ×2 (07:42→22:03)
[2021-08-09] MEDS: FUROSEMIDE 40 MG TAB PO SCH ×2 (07:42→18:42)
[2021-08-09] MEDS: CLOPIDOGREL BISULFATE 75 MG TAB PO SCH (07:43)
[2021-08-09] MEDS: ASPIRIN 81 MG ECTAB PO SCH (07:43)
[2021-08-09] MEDS: PANTOprazole 40 MG TAB PO SCH (07:43)
--- NOTE | 2021-08-09 10:13 | Pharmacy Report ---
Pharmacy Glycemic Short Note 2 - Date of Service August 09, 2021 - Glycemic Short BSG Results (Last 24 hours): 08/08/21 08/08/21 08/09/21 18:54 19:01 01:46 Glucose 362 H* POC Glucose 166 H POC Glucose (other) 358 H* 08/09/21 08/09/21 08/09/21 04:11 05:27 07:34 Glucose 170 H POC Glucose 192 H 122 H POC Glucose (other) OUTPATIENT ANTIDIABETIC REGIMEN: * Novolog sliding scale ASSESSMENT: * SOHEILA is a 46 year old male w/ significant PMH including ESRD (on chronic HD), chronic anemia of CKD, CAD, DM (type 1 reported) * Patient reports not taking insulin regularly at home and that dialysis is sufficient for removing glucose * Presents with increasing shortness of breath, Hgb of 7.2 on admission * BSG > 300 mg/dL on admission, corrected to 122 mg/dL overnight with Novolog and one-time IV insulin bolus only * Patient refusing basal insulin at this time, will treat with Novolog only for now * Hemodialysis scheduled for today * Novolog parameters may need to be adjusted on dialysis vs. non-dialysis days PLAN FOR INPATIENT GLYCEMIC CONTROL: * Basal insulin * Patient refusing - hold for now * Bolus insulin * NovoLog per scale ACHS or Q6hrs while NPO * Goal Range: Low 110 mg/dL - High 140 mg/dL * Correction Factor: 30 mg/dL/unit * Nutritional / Prandial insulin per carb ratio of 1 unit per 10 grams CHO consumed
--- NOTE | 2021-08-09 11:01 | Cardiology Consultation ---
Date of Consultation August 09, 2021 Assessment & Plan (1) HFrEF (heart failure with reduced ejection fraction): (2) Coronary artery disease: (3) Elevated troponin: (4) Anemia: (5) Elevated d-dimer: (6) Hypertension: (7) ESRD (end stage renal disease) on dialysis: Newly dx HF with reduced EF. No clear complaints of angina. However, Ischemia has yet to be ruled out. Differentials include- PE vs. Viral vs. Ischemic cause. Patient certainly has risk factors for obstructive CAD including ESRD on HD, Type 1 DM with longstanding Insulin use, PAD, and known nonobstructive CAD per cath 2019. Anemia is likely a contributing factor to his symptoms- could also be the cause of his bump in troponin due to demand ischemia. - Recommend CTA of the chest to rule out PE due to symptoms, echo results, and elevated D-Dimer - Blood pressures low, but patient currently asymptomatic. Agree with holding hydralazine and terazosin. - Future considerations for nuclear stress test while inpatient, will consider pending clinical course. - appreciate nephrology's input on renal function and volume status. - Unknown cause of anemia, ? anemia of chronic disease ? Will defer to primary team for evaluation. Case discussed with Dr. Fried- further recommendation to follow. Supervising Physician Co-Signing Physician Notes Patient seen and examined with Lisette BRADY. Agree with findings and assessment as above. Given that his symptoms of cough completely resolved after blood transfusion we will hold off on further cardiac work-up at this time. We will plan on repeating echocardiogram in 2 weeks and should his EF normalized at that time the no further testing will be necessary. Okay to DC to home from a cardiac standpoint. My office will call to arrange outpatient follow-up. History of Present Illness Reason for Consultation: HFrEF Requesting Physician: Mery Brantley Attending Physician: Randa Nicole MD History of Present Illness 46 year old male. Follows with Arsenio Ramsay PA-C as an outpatient. Last seen on 06/06/2021. Presented to ED due to shortness of breath x1 week. Patient hypotensive on exam initially and given 500 cc fluid bolus with improvement in the BP while in ED. Hemoglobin 7.2. Given 1 u PRBC. Notes that he has been hypotensive over the last few weeks having to reduce his dose of hydralazine. He also believed that his blood count was low because he started to develop terrible RLS symptoms which has prevented him from sleeping. Notes that he has only fallen asleep for about 5 hours total over the last week. This happens when his hemoglobin goes below 10. His shortness of breath worsened to the point where he was unable to complete normal daily activities without having to stop and rest. He did have symptoms of lightheadedness and dizziness, along with near syncope. Had one episode of chest pressure last week, felt that this was more "bronchial" and was accompanied by a productive cough. Took x1 dose of NyQuil with improvement in his symptoms. Did note shortness of breath if he was laying down flat- symptoms improved since receiving blood. Last HD treatment 2 days ago at home, he took off a total of 6 lbs and gave himself back 1 due to significant cramping in his legs. Believes that he is at dry weight ~ 222 lbs (at home). No concerns regarding blood in the stools or urine. Echo: 25-30% LVEF, Flattened septum consisten with RV pressure/vl overload, akinesis of the anterior.anteroseptal aguilar, moderate global hypokinesis. Reduced RV systolic function, free RV wall hypokinesis with preserved apical all motion, grade 1 diastlic dysfunction, mild aortic sclerosis, no stenosis, mild to moderate MR, mild TR, pulmonary HTN 42 mmhg Tele: SR 70s PROBLEM LIST: 1.ASCVD. 1.Status post PCI of the LAD with a Xience 2.5mm x 12 mm MIRTA. ~ 12 years ago. 2.Cardiac catheterization in September 2018 due to abnormal nuclear stress with moderate nonobstructive coronary artery disease including a 40% mid LAD stenosis, 50% mid circumflex stenosis, and luminal irregularities in the RCA. 2.Longstanding labile hypertension 3.Dyslipidemia with an optimal LDL goal of < 70 mg/dL 4.Pericardial effusion, asymptomatic 5.Peripheral vascular disease, followed by [facility] Vascular Surgery 6.End-stage renal disease, on in-home hemodialysis under the direction of Dr. 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 Allergies Allergy/AdvReac Type Severity Reaction Status Date / Time benzonatate Allergy Unknown told not Verified 08/08/21 18:57 to take ibuprofen Allergy Unknown told not Verified 08/08/21 18:57 to take baclofen AdvReac Severe sedation/co Verified 08/08/21 18:57 nfusion oxycodone AdvReac Intermediate Confusion Verified 08/08/21 18:57 FRED Inhibitors AdvReac Unknown Unknown Verified 08/08/21 18:57 Home Medications Medication Instructions Recorded Confirmed Type atorvastatin 40 mg tablet 40 mg PO HS 02/13/18 08/08/21 History carvedilol 25 mg tablet 50 mg PO BID 02/13/18 08/08/21 History clopidogrel 75 mg tablet 75 mg PO DAILY 02/13/18 08/08/21 History furosemide 40 mg tablet (Lasix) 40 mg PO BID 02/13/18 08/08/21 History insulin aspart U-100 100 unit/mL 0 unit SUBCUT TID PRN 02/13/18 08/08/21 History (3 mL) subcutaneous pen (Novolog Flexpen U-100 Insulin aspart) nitroglycerin 0.4 mg sublingual 0.4 mg SUBLINGUAL DIRECTED PRN 02/13/18 08/08/21 History tablet (Nitrostat) omeprazole 20 mg capsule,delayed 20 mg PO QAM 02/13/18 08/08/21 History release terazosin 2 mg capsule 4 mg PO HS 02/13/18 08/08/21 History aspirin 81 mg tablet,delayed 81 mg PO DAILY 06/10/20 08/08/21 History release hydralazine 100 mg tablet 100 mg PO TID 10/14/20 08/08/21 History oxycodone-acetaminophen 5 mg-325 1 tab PO BID PRN 08/08/21 08/08/21 History mg tablet Patient History Medical History Acute left lumbar radiculopathy Bilateral carotid artery stenosis Monitored with Carotid Doppler q6 months. 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 Carotid artery stenosis Coronary artery disease Diabetes mellitus, insulin-dependent (IDDM or type I) DM I (diabetes mellitus, type I) Dyslipidemia ESRD (end stage renal disease) on dialysis GERD (gastroesophageal reflux disease) Gout Hypertension Hypertensive urgency Labile hypertension Orthostatic hypotension Presence of artificial eye LEFT Weakness Surgical History History of discectomy LUMBAR History of eye surgery MULTIPLE EYE SURGERIES S/T COMPLICATIONS OF DIABETES INCLUDING DETACHED RETINA, DSEAK PROCEDURES, AND ENUCLEATION OF LEFT EYE Status post cardiac catheterization Status post coronary artery stent placement 2009, NO HX OF MS. [facility]. Family History Other Cancer Diabetes Gallbladder disease Heart disease Hypertension Social History Smoking Status: Never smoker Tobacco Type: Smokeless Tobacco (Dip or Chew) Second Hand Exposure: No; Hx Alcohol Use: No Hx Substance Use: No Preferred Language: Urdu Communication Ability: Effective Visual Impairment: Blindness Pumper Gager Required: No Beliefs That Will Affect Care: None marital status: Current Living Situation: Spouse current occupational status: disabled Feels Safe at Home: Yes Assistive Devices: Cane Review of Systems Review of Systems: All systems reviewed & are unremarkable except as noted in HPI & below Physical Exam Physical Exam: General: A&Ox3. NAD. HENT: Normocephalic. 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 No overt JVD. Heart: RRR at 88 bpm. S1 and S2 noted. No murmurs. Lungs: Clear to auscultation. Abdomen: +BS. Soft. Extremities: Ischemic right middle finger. Good right radial pulse. Left upper extremity AV fistula, + thrill. Mild lower extremity edema, at baseline. No clubbing. Pulses: radial=2/4, posterior tibial=2/4 on the right and 1/4 on the left. Results & Data ([facility]) Vital Signs (Past 12 Hours) Vital Signs Temp Pulse Pulse Resp BP BP Pulse Ox 08/09/21 07:00 80 08/09/21 06:59 36.4 C L 81 18 157/81 H 97 08/09/21 04:38 36.5 C 83 18 129/47 L 08/09/21 02:43 36.5 C 87 17 120/74 98 08/09/21 01:43 36.6 C 80 17 149/77 H 98 08/09/21 01:18 36.5 C 80 18 99/65 L 98 08/09/21 01:14 36.5 C 80 18 99/65 L 98 08/09/21 00:43 36.4 C L 80 20 131/55 L 96 08/09/21 00:40 36.4 C L 80 20 131/55 L 96 08/09/21 00:15 36.6 C 80 18 160/77 H 98 08/08/21 23:58 36.5 C 81 18 152/83 H 95 08/08/21 23:37 36.5 C 81 18 113/68 98 Laboratory Results Cardiac Enzymes 08/08/21 08/09/21 08/09/21 Range/Units 18:54 00:48 05:27 AST 7 L (13-39) U/L Troponin I 0.11 H* 0.21 H* 0.19 H* (0-0.04) ng/ml Coagulation 08/08/21 Range/Units 18:54 PT 12.4 H (9.0-12.0) Seconds APTT 27.7 (21.0-31.0) Seconds CBC 08/08/21 08/09/21 Range/Units 18:54 05:27 WBC 6.67 7.03 (4.8-10.8) K/uL RBC 2.21 L 2.56 L (4.7-6.1) M/uL Hgb 7.2 L 8.2 L (14.0-18.0) g/dL Hct 21.2 L 24.2 L (42-52) % Plt Count 222 192 (130-400) K/uL Neut # (Auto) 4.89 (1.4-6.5) K/uL Lymph # (Auto) 1.05 L (1.2-3.4) K/uL [place] # (Auto) 0.56 (0.11-0.59) K/uL Eos # (Auto) 0.11 (0-0.5) K/uL Baso # (Auto) 0.04 (0-0.2) K/uL Comprehensive Metabolic Panel 08/08/21 08/09/21 Range/Units 18:54 05:27 Sodium 131 L 132 L (136-145) mmol/L Potassium 4.7 4.2 (3.5-5.1) mmol/L Chloride 91 L 95 L (98-107) mmol/L Carbon Dioxide 27 24 (21-32) mmol/L BUN 51 H 58 H (6-23) mg/dl Creatinine 7.98 H* 8.74 H* D (0.6-1.4) mg/dl Glucose 362 H* 170 H (70-99(Fasting)) mg/dl Calcium 8.9 8.9 (8.5-10.1) mg/dl AST 7 L (13-39) U/L ALT 6 L (7-52) U/L Alkaline Phosphatase 71 (34-104) U/L Total Protein 7.0 (6.0-8.3) gm/dl Albumin 4.1 (3.4-5.0) gm/dl Intake and Output 08/08/21 08/09/21 08/09/21 22:59 06:59 14:59 Intake Total 500 / 970 470 / 970 Output Total 50 / 50 Balance 500 / 920 420 / 920 Intake: IV 500 / 500 Sodium Chloride 0.9% 1000ML 500 500 / 500 ml @ 999 mls/hr IV .Q31M ONE Rx#:[id number] Oral 100 / 100 Intake (Blood Product) Amt 310 / 310 Packed Cells, Leukoreduced 310 / 310 Unit [id number] Other 60 / 60 Packed Cells, Leukoreduced 60 / 60 Unit [id number] Output: Urine 50 / 50 Other: Weight 104.1 kg Weight Measurement Method Standing Scale Diagnostic Findings Echo 01/05/2021 The examination is adequate to evaluate the referral indication. The LV wall thickness is moderately increased (concentric). The left ventricular wall motion is normal. The left ventricular systolic function is normal. Calculated LV ejection Fraction = 53% (three dimensional volumes). The left atrium is severely enlarged. The left ventricular diastolic function is severely abnormal (grade III). Mild tricuspid regurgitation is present. The estimated pulmonary artery systolic pressure is 32 mm Hg. There is a small loculated right lateral, left lateral and posterior pericardial effusion. Cardiac tamponade is absent. Coronary angiography on October 15, 2018 at [facility] demonstrated mild to moderate nonobstructive coronary artery disease with a 40% mid LAD stenosis, two serial 50% stenosis in the mid circumflex, and luminal irregularities of the RCA.
--- NOTE | 2021-08-09 12:25 | Nephrology Consultation ---
Date of Consultation August 09, 2021 Assessment & Plan (1) ESRD (end stage renal disease) on dialysis: We will arrange for dialysis treatment here today with gentle UF as tolerated. His blood pressure has been quite labile, so UF may be limited. Hx of autonomic dysfunction and labile BP longstanding. He has marked residual renal function appreciate team efforts to preserve this by avoiding contrast for CT angiography unless absolutely necessary, particularly since with new echo ff he may need cardiac cath. -daily bmp -timing of next HD after today to depend on clinical course -for today 3.5 hr tx goal to 2.5L UF depending on SBP (2) HFrEF (heart failure with reduced ejection fraction): EF 53>25% for eval for PE and cardiology following -agree w/ continuing coreg, lasix for now (3) Symptomatic anemia: epo w/ HD and venofer; no evidence of active bleeding -daily hgb History of Present Illness Reason for Consultation: ESRD on dialysis Requesting Physician: Attending Physician: Randa Nicole MD History of Present Illness 46-year-old male whom I am asked to evaluate for dialysis needs was admitted overnight after presenting with symptomatic hypotension (systolic blood pressure in the 70s on presentation) and hemoglobin 7.2. He is a home hemodialysis patient under my care at [facility] and dialyzes 5 days weekly via AV fistula. His hemoglobin has been fairly labile for the past several months: In April 07, April 8.4, May 11.6, June 9.9, August 01 8.3. He denies any active bleeding. Denies worsening shortness of breath since receiving transfusion 1 unit packed red cells Endorses some orthostatic symptoms and exertional dyspnea prior to transfusion. Endorses worsening restless leg syndrome which he states this is benchmark for knowing blood counts are declining. He had 1/2 L normal saline in the emergency department and 1 unit of blood. Denies lower extremity edema, nausea vomiting, challenges with dialysis. Other medical history includes type 1 diabetes, coronary artery disease status post stenting, hypertension hyperlipidemia fatty liver. He takes opiate pain medication intermittently for ulcer on right third digit. No NSAIDs. Noted on evaluation to have new drop in EF to 25 to 30% with moderate global hypokinesis and evidence of right heart strain Allergies Allergy/AdvReac Type Severity Reaction Status Date / Time benzonatate Allergy Unknown told not Verified 08/08/21 18:57 to take ibuprofen Allergy Unknown told not Verified 08/08/21 18:57 to take baclofen AdvReac Severe sedation/co Verified 08/08/21 18:57 nfusion oxycodone AdvReac Intermediate Confusion Verified 08/08/21 18:57 FRED Inhibitors AdvReac Unknown Unknown Verified 08/08/21 18:57 Home Medications Medication Instructions Recorded Confirmed Type atorvastatin 40 mg tablet 40 mg PO HS 02/13/18 08/08/21 History carvedilol 25 mg tablet 50 mg PO BID 02/13/18 08/08/21 History clopidogrel 75 mg tablet 75 mg PO DAILY 02/13/18 08/08/21 History furosemide 40 mg tablet (Lasix) 40 mg PO BID 02/13/18 08/08/21 History insulin aspart U-100 100 unit/mL 0 unit SUBCUT TID PRN 02/13/18 08/08/21 History (3 mL) subcutaneous pen (Novolog Flexpen U-100 Insulin aspart) nitroglycerin 0.4 mg sublingual 0.4 mg SUBLINGUAL DIRECTED PRN 02/13/18 08/08/21 History tablet (Nitrostat) omeprazole 20 mg capsule,delayed 20 mg PO QAM 02/13/18 08/08/21 History release terazosin 2 mg capsule 4 mg PO HS 02/13/18 08/08/21 History aspirin 81 mg tablet,delayed 81 mg PO DAILY 06/10/20 08/08/21 History release hydralazine 100 mg tablet 100 mg PO TID 10/14/20 08/08/21 History oxycodone-acetaminophen 5 mg-325 1 tab PO BID PRN 08/08/21 08/08/21 History mg tablet Patient History Medical History Acute left lumbar radiculopathy Bilateral carotid artery stenosis Monitored with Carotid Doppler q6 months. 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 Carotid artery stenosis Coronary artery disease Diabetes mellitus, insulin-dependent (IDDM or type I) DM I (diabetes mellitus, type I) Dyslipidemia ESRD (end stage renal disease) on dialysis GERD (gastroesophageal reflux disease) Gout Hypertension Hypertensive urgency Labile hypertension Orthostatic hypotension Presence of artificial eye LEFT Weakness Surgical History History of discectomy LUMBAR History of eye surgery MULTIPLE EYE SURGERIES S/T COMPLICATIONS OF DIABETES INCLUDING DETACHED RETINA, DSEAK PROCEDURES, AND ENUCLEATION OF LEFT EYE Status post cardiac catheterization Status post coronary artery stent placement 2009, NO HX OF [facility]. Family History Other Cancer Diabetes Gallbladder disease Heart disease Hypertension Social History Smoking Status: Never smoker Tobacco Type: Smokeless Tobacco (Dip or Chew) Second Hand Exposure: No; Do You Dip or Chew Tobacco: Yes; Hx Alcohol Use: No Hx Substance Use: No Preferred Language: [place] Leonean Communication Ability: Effective Visual Impairment: Blindness Solvent Recoverer Required: No Beliefs That Will Affect Care: None marital status: Current Living Situation: Spouse current occupational status: disabled Feels Safe at Home: Yes Safety Concerns: Feels Safe At This Time Assistive Devices: Cane Assistive Devices Comment: home dialysis equipment Physical Exam Constitutional: well developed, well nourished, cooperative, comfortable and + edematous (mild facial edema); no acute distress Eyes: EOM intact bilaterally ENMT: Ears: no external ear abnormality Nose: no external nose abnormality Mouth: + dry oral mucous membranes Neck: no nuchal rigidity Respiratory: normal respiratory effort Auscultation: + diminished lung sounds Cardiovascular: Rate/Rhythm: regular rate and regular rhythm Extremities: + edema (trace BLE) and + AV fistula (+t/b) Gastrointestinal (Abdomen): Inspection/Auscultation: normal bowel sounds Percussion/Palpation: abdomen soft; abdomen nontender Musculoskeletal: Extremities: strength 5/5 throughout Skin: no rashes, warm and dry Neurologic: hoover, fluent speech, no tremor Psychiatric: Orientation: oriented x 3 Results & Data ([facility]) Vital Signs (Past 12 Hours) Vital Signs Temp Pulse Pulse Resp BP BP Pulse Ox 08/09/21 11:58 36.4 C L 76 20 82/43 L 95 08/09/21 07:00 80 08/09/21 06:59 36.4 C L 81 18 157/81 H 97 08/09/21 04:38 36.5 C 83 18 129/47 L 08/09/21 02:43 36.5 C 87 17 120/74 98 08/09/21 01:43 36.6 C 80 17 149/77 H 98 04/12/22 01:18 36.5 C 80 18 99/65 L 98 08/09/21 01:14 36.5 C 80 18 99/65 L 98 08/09/21 00:43 36.4 C L 80 20 131/55 L 96 08/09/21 00:40 36.4 C L 80 20 131/55 L 96 Laboratory Results 08/09/21 05:27 08/09/21 05:27 troponins noted UACM, resp PCR panel reviewed Diagnostic Findings Echocardiogram from today reviewed: See HPI (EF Dec 2020 53%)
[2021-08-09 12:33] LABS: D Dimer 1170 ug/L FEU (0-500)
[2021-08-09] MEDS ORDERED: SODIUM CHLORIDE 0.9% 1000ML 1,000 ML IV PRN (12:45)
[2021-08-09] MEDS ORDERED: EPOETIN ALFA 20,000 UNITS/ML VIAL IV SCH (13:00)
[2021-08-09] MEDS ORDERED: IRON SUCROSE 100 MG in SYRINGE 0 ML IV ONE (13:00)
--- NOTE | 2021-08-09 14:20 | Nuclear Medicine Report ---
NUCLEAR PULMONARY PERFUSION SCAN CLINICAL HISTORY: Pulmonary artery hypertension. Cardiomegaly. COMPARISON STUDY: Chest CT dated 10/15/2020. Chest x-ray dated 08/08/2021. TECHNIQUE: A nuclear perfusion scan of both lungs was obtained following the IV administration of 5.7 mCi of technetium 99m MAA. Images were acquired in the anterior, posterior, and oblique projections. FINDINGS: A chest x-ray performed 08/08/2021 shows marked cardiomegaly with pulmonary vascular congestion. No ai rspace consolidation or large pleural effusion is identified. There is homogeneous tracer deposition seen throughout both lungs on the perfusion examination. No fi lling defects are identified typical for pulmonary embolus. IMPRESSION: There are no perfusion defects identified typical for pulmonary embolus. ACT 112: Negative or not required by law. Electronically signed by: Albin De La Rosa M.D. 08/09/2021 2:18 PM
--- NOTE | 2021-08-09 14:34 | Hospitalist Progress Note ---
Date of Service August 09, 2021 Assessment & Plan (1) HFrEF (heart failure with reduced ejection fraction): Plan: 46-year-old male with PMH of CAD s/p stent, DM I, ESRD on home HD, HTN, dyslipidemia, fatty liver, GERD, obesity presented to ER 08/08 with complaint of increasing shortness of breath for the past week, lightheadedness and low home BP's. Reported downtrending Hgb on home lab draws. Denies any signs or symptoms of bleeding. He is being managed for the followin) Symptomatic anemia: In ER patient afebrile, P: 60, BP 77/44, 100% on room air. No leukocytosis. CXR: Pulmonary vascular congestion. Respiratory panel negative Admitting Hgb: 7.2. Baseline ~10; s/p 1 unit PRBC on 08/08 Pt on Epogen 3x/wk as OP. Pt with improved s/s including shortness of breath and dizziness, and feels better, Hb above 8 Monitor Hb daily and as needed. #. New Diagnosis of HFrEF #. Elevated Trop Troponin minimally elevated at presentation. Trends reviewed EKG at presentation with ST depression in lateral leads. Patient denied any chest pain. But patient presented with shortness of breath [see above]. Echo was done 08/09 with ejection fraction 25 to 30% with evidence of right ventricular strain. Akinesis of anterior/anteroseptal aguilar present. Discussed with cardiology, need to rule out PE. D-dimer elevated, ultrasound BLE Doppler sent, perfusion scan negative for PE. Discussed with nephrology, CTA chest cannot be done due to patient having some residual kidney function. Cardio on board, appreciate recs (2) ESRD (end stage renal disease) on dialysis: Plan: On HD at home. Reports does HD 5 times a week. Last dialysis 08/07/2021 Resume patient's home Lasix 40 mg p.o. twice daily tomorrow Nephro on board, appreciate recs. (4) Coronary artery disease: Plan: S/p stent Continue aspirin, carvedilol, Plavix, statin (5) DM I (diabetes mellitus, type I): Plan: Type I DM per outpatient records A1c: 6.2 on 06/25/2021, however patient with ESRD NovoLog sliding scale at home, however patient reports is not taking his insulin as he feels his glucose is removed with dialysis. Is not on long acting insulin. Today in ER glucose: 362 Basal bolus insulin per protocol Glycemic consult for assistance with glycemic management (6) Hypertension: Plan: BP is low in ER Hold amlodipine, hydralazine, Terazosin Continue carvedilol with holding parameters (7) Dyslipidemia: Plan: Continue statin (8) Carotid artery stenosis: Plan: Continue aspirin, Plavix, statin DVT Prophylaxis: Heparin Full Code Admission and Anticipated Discharge Date Admission Date: August 08, 2021 Subjective Patient seen and examined at bedside as a follow-up of symptomatic anemia and new diagnosis of heart failure with reduced ejection fraction. Patient was sitting up in bed, on room air, NAD, no new acute events overnight. Patient reports improvement in his lightheadedness and shortness of breath/exertion after 1 unit transfusion of blood yesterday evening. Patient reports eating okay and moving bowels okay. Patient denies headache/fever/chills/cough/sore throat/chest pain/palpitations/belly pain/other review of symptoms. Physical Exam Physical Exam: GENERAL: Alert and oriented x3. NAD, on RA. HEENT: No pallor, no icterus. Pupils equal, round and reactive to light. Oral mucosa moist. NECK: No JVD, no neck masses. HEART: S1 and S2 heard. Regular rate and rhythm. No murmur, no gallop. RESPIRATORY SYSTEM: Normal AP diameter. No accessory muscle use. No wheezing, no crackles. ABDOMEN: Soft, bowel sounds present, nontender, no distention. CENTRAL NERVOUS SYSTEM: No facial droop. Speech is clear. Obeys simple commands. Moves extremities. EXTREMITIES: 1+ pedal edema, no erythema seen. Results & Data Results & Data ([facility]) Vital Signs (Past 12 Hours) Vital Signs Temp Pulse Pulse Resp BP BP Pulse Ox 08/09/21 11:58 36.4 C L 76 20 82/43 L 95 08/09/21 07:00 80 08/09/21 06:59 36.4 C L 81 18 157/81 H 97 08/09/21 04:38 36.5 C 83 18 129/47 L 08/09/21 02:43 36.5 C 87 17 120/74 98
--- NOTE | 2021-08-09 16:12 | Ultrasound Report ---
BILATERAL LOWER EXTREMITY VENOUS DOPPLER HISTORY: Acute pain and swelling of the lower legs r/o dvt COMPARISON STUDY: Doppler study 09/07/2019 FINDINGS: There is normal compressibility, flow, and augmentation within the bilateral lower extremit y deep venous systems. IMPRESSION: No DVT within the right or left lower extremity. ACT 112: Negative or not required by law. Electronically signed by: Amor Scott M.D. 08/09/2021 4:10 PM
[2021-08-09] MEDS ORDERED: ATORVASTATIN 40 MG TAB PO SCH (21:00)
[2021-08-09] MEDS: HEPARIN SOD 5,000 UNIT/0.5 ML VIAL SQ SCH (22:04)
--- NOTE | 2021-08-09 22:23 | Electrocardiogram Report ---
Test Reason : Blood Pressure : / mmHG Vent. Rate : 069 BPM Atrial Rate : 069 BPM P-R Int : 202 ms QRS Dur : 094 ms QT Int : 458 ms P-R-T Axes : 026 -38 122 degrees QTc Int : 490 ms Normal sinus rhythm Left axis deviation Prolonged QT Abnormal ECG When compared with ECG of 15-OCT-2020 04:08, QRS axis Shifted left T wave inversion now evident in Lateral leads Confirmed by Alberto Bal ([id number]) on 08/09/2021 10:23:00 PM Referred By: REFERRED SELF Confirmed By:Alberto Bla
[2021-08-10] MEDS: oxyCODONE/ACETAMINOPHEN 5mg/325mg TAB PO PRN (03:04)
--- NOTE | 2021-08-10 05:35 | Electrocardiogram Report ---
Test Reason : Blood Pressure : / mmHG Vent. Rate : 081 BPM Atrial Rate : 081 BPM P-R Int : 212 ms QRS Dur : 102 ms QT Int : 426 ms P-R-T Axes : 036 -26 106 degrees QTc Int : 494 ms Poor data quality, interpretation may be adversely affected Sinus rhythm with 1st degree A-V block Prolonged QT Abnormal ECG When compared with ECG of 08-AUG-2021 18:40, No significant change was found Confirmed by Alberto Bal ([id number]) on 08/10/2021 5:35:04 AM Referred By: REFERRED SELF Confirmed By:Alberto Bal
[2021-08-10 07:09] LABS: Hematocrit (blood only) 26.4 % (42-52); Hemoglobin 8.9 g/dL (14.0-18.0); Mean Corpuscular Hemoglobin 32.1 pg (25-34); Mean Corpuscular Hgb Conc 33.7 g/dL (32-36); Mean Corpuscular Volume 95.3 fL (80-100); Mean Platelet Volume 9.2 fL (7.4-10.4); Platelet Count 203 K/uL (130-400); RDW Coefficient of Variation 16.4 % (11.5-14.5); RDW Standard Deviation 57.3 fL (36.4-46.3); Red Blood Count 2.77 M/uL (4.7-6.1); White Blood Count 5.56 K/uL (4.8-10.8)
[2021-08-10 07:28] LABS: BUN Creatinine Ratio 5.7 (10-20); Calcium 8.6 mg/dl (8.5-10.1); Creatinine Clr Calc Pharmacy 17.6 ml/min; Est GFR (African American) 11.4 ml/min; Est GFR (Non-African American) 9.8 ml/min; Magnesium 2.1 mg/dl (1.7-2.4); Potassium 4.3 mmol/L (3.5-5.1)
--- NOTE | 2021-08-10 07:40 | Cardiology Progress Note ---
Date of Service August 10, 2021 Assessment & Plan (1) HFrEF (heart failure with reduced ejection fraction): Plan: Newly dx HF with reduced EF. Unclear etiology. (2) Coronary artery disease: Plan: Status post PCI of the LAD with a Xience 2.5mm x 12 mm MIRTA. ~ 12 years ago. Repeat cardiac catheterization in September 2018 due to abnormal nuclear stress with moderate nonobstructive coronary artery disease including a 40% mid LAD stenosis, 50% mid circumflex stenosis, and luminal irregularities in the RCA. Nuclear stress outpatient 04/2021 Negative. (3) Elevated troponin: (4) Anemia: (5) Elevated d-dimer: Plan: Negative VQ scan 08/09. Trops 0.11>>0.21>>0.19. Hemoglobin 7.2>>8.2>>8.9 (08/09). No signs of acute bleeding. (6) Hypertension: Plan: Hx of labile hypertension. (7) ESRD (end stage renal disease) on dialysis: Plan: On home HD x5 days per week via left arm AV fistula. Plan: Unknown cause of new HFrEF. No clear complaints of angina. However, Ischemia has yet to be ruled out. Patient certainly has risk factors for obstructive CAD including ESRD on HD, Type 1 DM with longstanding Insulin use, PAD, and known n onobstructive CAD per cath 2019. Anemia was likely a contributing factor to his symptoms- could also be the cause of his bump in troponin due to demand ischemia. Blood pressures now improved. Patient had a negative outpatient nuclear stress at the end of April- EF was normal this time. Patient currently angina free. - Will plan on having a repeat limited echo done as an outpatient prior to follow up to reassess LV systolic function, I will have our office set up. Should EF remain low will need to consider repeat nuclear stress testing vs. cardiac catheterization. - Appreciate nephrology's input on renal function and volume status. - Unknown cause of anemia, ? anemia of chronic disease ? Will defer to primary team for evaluation. - Given newly dx HFrEF, recommend hemoglobin count >10.[address] Fried- further recommendation to follow. Admission and Anticipated Discharge Date Admission Date: August 08, 2021 Supervising Physician Co-Signing Physician Notes Patient seen and examined with Lisette BRADY. Agree with findings and assessment as above. Given that his symptoms of cough completely resolved after blood transfusion we will hold off on further cardiac work-up at this time. We will plan on repeating echocardiogram in 2 weeks and should his EF normalized at that time the no further testing will be necessary. Okay to DC to home from a cardiac standpoint. My office will call to arrange outpatient follow-up. Subjective 46 year old male. Follows with Arsenio Ramsay PA-C as an outpatient. Last seen on 06/06/2021. 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 Presented to ED due to shortness of breath x1 week. Patient was anemic with a count of 7.2- 1 unit of PRBC infused, improving count to 8.2. Know LEI- recent Epogen and iron supplement cut back by outpatient nephro team. On admission found to have new onset HFrEF of unknown etiology. EKG showed SR with ST depression in lateral leads, Trops 0.11>>0.21>>0.19. -Echo: 25-30% LVEF, Flattened septum consistent with RV pressure/vl overload, akinesis of the anterior.anteroseptal aguilar, moderate global hypokinesis. Reduced RV systolic function, free RV wall hypokinesis with preserved apical all motion, grade 1 diastolic dysfunction, mild aortic sclerosis, no stenosis, mild to moderate MR, mild TR, pulmonary HTN- 42 mmhg. -CTA was deferred due to renal disease per nephro- VQ scan showed no perfusion defects identified typical for pulmonary embolus. - Nuclear stress done in 04/2021 negative for ischemia but EF was normal at that time. Upon entrance into the room patient was standing at the bedside. Denied any acute concerns. RLS improving, able to sleep 5 hours last night. No chest pain or shortness of breath. No palpitations, dizziness, or syncope. Patient believes he is back to his baseline. Tele: SR 70-80s Weight: 104.1 >> 103.6 kg HD treatment 08/09: -2.5L Hemoglobin 7.2>>8.2>>8.9 (08/09) Review of Systems Review of Systems: All systems reviewed & are unremarkable except as noted in HPI & below Physical Exam Physical Exam: General: A&Ox3. NAD. HENT: Normocephalic. 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 No overt JVD. Heart: RRR at 88 bpm. S1 and S2 noted. No murmurs. Lungs: Clear to auscultation. Abdomen: +BS. Soft. Extremities: Ischemic right middle finger. Good right radial pulse. Left upper extremity AV fistula, + thrill. Mild lower extremity edema, at baseline. No clubbing. Pulses: radial=2/4, posterior tibial=2/4 on the right and 1/4 on the left. Results & Data ([facility]) Vital Signs (Past 12 Hours) Vital Signs Temp Pulse Pulse Pulse Resp BP BP 08/10/21 07:16 68 08/10/21 06:55 36.5 C 68 18 133/54 L 08/10/21 03:03 36.9 C 87 18 142/85 H 08/09/21 22:29 73 08/09/21 22:05 36.4 C L 67 20 172/82 H 08/09/21 21:50 36.6 C 71 156/70 H 08/09/21 21:00 69 138/60 08/09/21 20:30 66 155/62 H 08/09/21 20:00 67 156/90 H 08/09/21 19:40 67 121/63 Pulse Ox 08/10/21 07:16 08/10/21 06:55 92 08/10/21 03:03 98 08/09/21 22:29 08/09/21 22:05 92 08/09/21 21:50 08/09/21 21:00 08/09/21 20:30 08/09/21 20:00 08/09/21 19:40 Laboratory Results CBC 08/10/21 Range/Units 06:41 WBC 5.56 (4.8-10.8) K/uL RBC 2.77 L (4.7-6.1) M/uL Hgb 8.9 L (14.0-18.0) g/dL Hct 26.4 L (42-52) % Plt Count 203 (130-400) K/uL Comprehensive Metabolic Panel 08/10/21 Range/Units 06:41 Sodium 135 L (136-145) mmol/L Potassium 4.3 (3.5-5.1) mmol/L Chloride 98 (98-107) mmol/L Carbon Dioxide 28 (21-32) mmol/L BUN 35 H D (6-23) mg/dl Creatinine 6.18 H* D (0.6-1.4) mg/dl Glucose 271 H (70-99(Fasting)) mg/dl Calcium 8.6 (8.5-10.1) mg/dl Intake and Output 08/09/21 08/10/21 08/10/21 22:59 06:59 14:59 Intake Total 200 / 910 100 / 910 Balance 200 / 910 100 / 910 Intake: Oral 200 / 910 100 / 910 Other: Hemodialysis Ultrafiltration 2,500 Amount Weight 103.6 kg Weight Measurement Method Built in [facility] Diagnostic Findings Nuclear stress 04/2021 Lexiscan nuclear cardiac stress test negative for ischemia. Gated SPECT images reveals normal myocardial thickening and wall motion. The LV ejection fraction is calculated at 59%.
[2021-08-10] MEDS ORDERED: HEPARIN SOD (PORCINE) 1000 UNIT/ML IV ONE (08:25)
[2021-08-10] MEDS ORDERED: SODIUM CHLORIDE 0.9% 1000ML 1,000 ML IV PRN (08:25)
[2021-08-10] MEDS ORDERED: EPOETIN ALFA 20,000 UNITS/ML VIAL IV ONE (08:25)
[2021-08-10] MEDS: INSULIN ASPART PER UNIT SC SCH ×2 (08:31→13:01)
[2021-08-10] MEDS: carvediloL 25 MG TAB PO SCH (08:34)
[2021-08-10] MEDS: CLOPIDOGREL BISULFATE 75 MG TAB PO SCH (08:35)
[2021-08-10] MEDS: FUROSEMIDE 40 MG TAB PO SCH (08:35)
[2021-08-10] MEDS: PANTOprazole 40 MG TAB PO SCH (08:36)
[2021-08-10] MEDS: ASPIRIN 81 MG ECTAB PO SCH (08:36)
[2021-08-10] MEDS: HEPARIN SOD 5,000 UNIT/0.5 ML VIAL SQ SCH (08:37)
--- NOTE | 2021-08-10 08:39 | Hospitalist Progress Note ---
Date of Service August 10, 2021 Assessment & Plan (1) HFrEF (heart failure with reduced ejection fraction): Plan: 46 yo M with PMH of CAD s/p stent, DM I, ESRD on home HD, HTN, dyslipidemia, fatty liver, GERD, obesity presented to ER 08/08 with complaint of increasing shortness of breath for the past week, lightheadedness and low home BP's. Reported downtrending Hgb on home lab draws. Denies any signs or symptoms of bleeding. He is being managed for the followin) Symptomatic anemia: In ER patient afebrile, P: 60, BP 77/44, 100% on room air. No leukocytosis. CXR: Pulmonary vascular congestion. Respiratory panel negative Admitting Hgb: 7.2. Baseline ~10; s/p 1 unit PRBC on 08/08 Pt on Epogen 3x/wk as OP. Pt with improved s/s including shortness of breath and dizziness, and feels better, Hb above 8 Monitor Hb daily and as needed. No signs of bleeding. Nephrology plans to follow up Hgb closely as outpt. #. New Diagnosis of HFrEF #. Elevated Trop Troponin minimally elevated at presentation. Trends reviewed EKG at presentation with ST depression in lateral leads. Patient denied any chest pain. But patient presented with shortness of breath [see above]. Echo was done 08/09 with ejection fraction 25 to 30% with evidence of right ventricular strain. Akinesis of anterior/anteroseptal aguilar present. Discussed with cardiology, need to rule out PE. D-dimer elevated, ultrasound BLE Doppler sent, perfusion scan negative for PE. Discussed with nephrology, CTA chest cannot be done due to patient having some residual kidney function. Cardiology following - plans to follow as outpt - repeat Echo in 2 weeks (2) ESRD (end stage renal disease) on dialysis: Plan: On HD at home. Reports does HD 5 times a week. Last dialysis 08/07/2021 Resume patient's home Lasix 40 mg p.o. twice daily Nephrology following. (4) Coronary artery disease: Plan: S/p stent Continue aspirin, carvedilol, Plavix, statin (5) DM I (diabetes mellitus, type I): Plan: Type I DM per outpatient records A1c: 6.2 on 06/25/2021, however patient with ESRD NovoLog sliding scale at home, however patient reports is not taking his insulin as he feels his glucose is removed with dialysis. Is not on long acting insulin. in ER glucose: 362 Basal bolus insulin per protocol Glycemic consult for assistance with glycemic management Outpt follow up recommended and discussed with the pt. (6) Hypertension: Plan: BP low in ER Hold amlodipine, hydralazine, Terazosin Continue carvedilol with holding parameters BP now normalized - discussed with the pt to monitor BP at home and follow up with outpt providers (7) Dyslipidemia: Plan: Continue statin (8) Carotid artery stenosis: Plan: Continue aspirin, Plavix, statin DVT Prophylaxis: Heparin Full Code Admission and Anticipated Discharge Date Admission Date: August 08, 2021 Subjective Patient seen in follow-up of symptomatic anemia and new diagnosis of heart failure with reduced ejection fraction. Patient is currently standing up. He is in NAD. Breathing comfortably. Denies any chest pain. Also denies any fever, chills, abdominal pain, dizziness/ lightheadedness. Review of Systems Review of Systems: All systems reviewed & are unremarkable except as noted in Subjective Physical Exam Physical Exam: GENERAL: Alert and oriented x3. NAD, on RA. HEENT: No pallor, no icterus. Pupils equal, round and reactive to light. Oral mucosa moist. NECK: No JVD, no neck masses. HEART: S1 and S2 heard. Regular rate and rhythm. No murmur, no gallop. RESPIRATORY: Normal AP diameter. No accessory muscle use. No wheezing, no crackles. ABDOMEN: Soft, bowel sounds present, nontender, no distention. NEURO: No facial droop. Speech is clear.Moves extremities. EXTREMITIES: 1+ pedal edema, no erythema seen. Results & Data Results & Data ([facility]) Vital Signs (Past 12 Hours) Vital Signs Temp Pulse Pulse Pulse Resp BP BP 08/10/21 07:16 68 08/10/21 06:55 36.5 C 68 18 133/54 L 08/10/21 03:03 36.9 C 87 18 142/85 H 08/09/21 22:29 73 08/09/21 22:05 36.4 C L 67 20 172/82 H 08/09/21 21:50 36.6 C 71 156/70 H 08/09/21 21:00 69 138/60 Pulse Ox 08/10/21 07:16 08/10/21 06:55 92 08/10/21 03:03 98 08/09/21 22:29 08/09/21 22:05 92 08/09/21 21:50 08/09/21 21:00 Laboratory Results 08/10/21 08/10/21 08/10/21 Range/Units 07:22 06:41 06:41 WBC 5.56 (4.8-10.8) K/uL RBC 2.77 L (4.7-6.1) M/uL Hgb 8.9 L (14.0-18.0) g/dL Hct 26.4 L (42-52) % MCV 95.3 (80-100) fL MCH 32.1 (25-34) pg MCHC 33.7 (32-36) g/dL RDW Std Deviation 57.3 H (36.4-46.3) fL RDW Coeff of Nessa 16.4 H (11.5-14.5) % Plt Count 203 (130-400) K/uL MPV 9.2 (7.4-10.4) fL D-Dimer (0-500) ug/L FEU Sodium 135 L (136-145) mmol/L Potassium 4.3 (3.5-5.1) mmol/L Chloride 98 (98-107) mmol/L Carbon Dioxide 28 (21-32) mmol/L Anion Gap 9 (3-11) BUN 35 H D (6-23) mg/dl Creatinine 6.18 H* D (0.6-1.4) mg/dl Est Cr Clr Drug Dosing 17.6 ml/min Est GFR ( Amer) 11.4 ml/min Est GFR (Non-Af Amer) 9.8 ml/min BUN/Creatinine Ratio 5.7 L (10-20) Glucose 271 H (70-99(Fasting)) mg/dl POC Glucose 270 H (70-99) mg/dl Calcium 8.6 (8.5-10.1) mg/dl Magnesium 2.1 (1.7-2.4) mg/dl Nasal Screen MRSA (PCR) (Negative) 08/09/21 08/09/21 08/09/21 Range/Units Unknown 21:58 16:38 WBC (4.8-10.8) K/uL RBC (4.7-6.1) M/uL Hgb (14.0-18.0) g/dL Hct (42-52) % MCV (80-100) fL MCH (25-34) pg MCHC (32-36) g/dL RDW Std Deviation (36.4-46.3) fL RDW Coeff of Nessa (11.5-14.5) % Plt Count (130-400) K/uL MPV (7.4-10.4) fL D-Dimer (0-500) ug/L FEU Sodium (136-145) mmol/L Potassium (3.5-5.1) mmol/L Chloride (98-107) mmol/L Carbon Dioxide (21-32) mmol/L Anion Gap (3-11) BUN (6-23) mg/dl Creatinine (0.6-1.4) mg/dl Est Cr Clr Drug Dosing ml/min Est GFR ( Amer) ml/min Est GFR (Non-Af Amer) ml/min BUN/Creatinine Ratio (10-20) Glucose (70-99(Fasting)) mg/dl POC Glucose 125 H 244 H (70-99) mg/dl Calcium (8.5-10.1) mg/dl Magnesium (1.7-2.4) mg/dl Nasal Screen MRSA (PCR) Negative (Negative) 08/09/21 08/09/21 08/09/21 Range/Units 12:09 11:24 10:59 WBC (4.8-10.8) K/uL RBC (4.7-6.1) M/uL Hgb (14.0-18.0) g/dL Hct (42-52) % MCV (80-100) fL MCH (25-34) pg MCHC (32-36) g/dL RDW Std Deviation (36.4-46.3) fL RDW Coeff of Nessa (11.5-14.5) % Plt Count (130-400) K/uL MPV (7.4-10.4) fL D-Dimer 1170 H* (0-500) ug/L FEU Sodium (136-145) mmol/L Potassium (3.5-5.1) mmol/L Chloride (98-107) mmol/L Carbon Dioxide (21-32) mmol/L Anion Gap (3-11) BUN (6-23) mg/dl Creatinine (0.6-1.4) mg/dl Est Cr Clr Drug Dosing ml/min Est GFR ( Amer) ml/min Est GFR (Non-Af Amer) ml/min BUN/Creatinine Ratio (10-20) Glucose (70-99(Fasting)) mg/dl POC Glucose 123 H 85 (70-99) mg/dl Calcium (8.5-10.1) mg/dl Magnesium (1.7-2.4) mg/dl Nasal Screen MRSA (PCR) (Negative) 08/09/21 Range/Units 10:41 WBC (4.8-10.8) K/uL RBC (4.7-6.1) M/uL Hgb (14.0-18.0) g/dL Hct (42-52) % MCV (80-100) fL MCH (25-34) pg MCHC (32-36) g/dL RDW Std Deviation (36.4-46.3) fL RDW Coeff of Nessa (11.5-14.5) % Plt Count (130-400) K/uL MPV (7.4-10.4) fL D-Dimer (0-500) ug/L FEU Sodium (136-145) mmol/L Potassium (3.5-5.1) mmol/L Chloride (98-107) mmol/L Carbon Dioxide (21-32) mmol/L Anion Gap (3-11) BUN (6-23) mg/dl Creatinine (0.6-1.4) mg/dl Est Cr Clr Drug Dosing ml/min Est GFR ( Amer) ml/min Est GFR (Non-Af Amer) ml/min BUN/Creatinine Ratio (10-20) Glucose (70-99(Fasting)) mg/dl POC Glucose 73 (70-99) mg/dl Calcium (8.5-10.1) mg/dl Magnesium (1.7-2.4) mg/dl Nasal Screen MRSA (PCR) (Negative) Medications Administered Current Inpatient Medications Acetaminophen (Acetaminophen 325 Mg Tab) 650 mg PO Q4H PRN PRN Reason: Pain or Fever Stop: 09/07/21 22:38 Aspirin (Aspirin 81 Mg Ectab) 81 mg PO DAILY GHAZALA Stop: 09/08/21 08:59 Last Admin: 08/09/21 07:43 Dose: 81 mg Documented by: Atorvastatin Calcium (Atorvastatin 40 Mg Tab) 40 mg PO HS GHAZALA Stop: 09/08/21 20:59 Last Admin: 08/09/21 22:03 Dose: 40 mg Documented by: Carvedilol (Carvedilol 25 Mg Tab) 50 mg PO BID GHAZALA Stop: 09/08/21 08:59 Last Admin: 08/09/21 22:03 Dose: 50 mg Documented by: Clopidogrel Bisulfate (Clopidogrel Bisulfate 75 Mg Tab) 75 mg PO DAILY GHAZALA Stop: 09/08/21 08:59 Last Admin: 08/09/21 07:43 Dose: 75 mg Documented by: Dextrose (Dextrose 50% 50 Ml Syringe) 25 - 50 ml IV UD PRN; Protocol PRN Reason: Hypoglycemia Protocol Stop: 09/07/21 22:38 Epoetin Tavo (Epoetin Tavo 20,000 Units/Ml Vial) 20,000 units IV ONE ONE Stop: 08/10/21 08:26 Furosemide (Furosemide 40 Mg Tab) 40 mg PO [id number] GHAZALA Stop: 09/08/21 08:59 Last Admin: 08/09/21 18:42 Dose: Not Given Documented by: Glucagon (Glucagon For Inj 1 Mg Vial) 1 mg SQ UD PRN; Protocol PRN Reason: Hypoglycemia Protocol Stop: 09/07/21 22:38 Glucose (Glucose 10 Tabs/Tube) 4 - 8 tabs PO UD PRN; Protocol PRN Reason: Hypoglycemia Protocol Stop: 09/07/21 22:38 Glucose (Glucose 40% Gel 15 Gm Tube) 15 - 30 gm PO UD PRN; Protocol PRN Reason: Hypoglycemia Protocol Stop: 09/07/21 22:38 Heparin Sodium (Porcine) (Heparin Sod 5,000 Unit/0.5 Ml Vial) 5,000 units SQ Q12 GHAZALA Stop: 09/08/21 20:59 Last Admin: 08/09/21 22:04 Dose: 5,000 units Documented by: Heparin Sodium (Porcine) (Heparin Sod (Porcine) 1000 Unit/Ml) 400 units IV Q1H [facility] Stop: 08/10/21 10:31 Sodium Chloride (Nss 1000ml) 1,000 mls @ 0 mls/hr IV .Q0M PRN PRN Reason: For Hemodialysis Use ONLY Stop: 08/10/21 14:24 Iron Sucrose 100 mg/ Syringe 5 mls @ 1 mls/min IV ONE ONE Stop: 08/10/21 08:29 Insulin Aspart (Insulin Aspart Per Unit) 0 units SC ACHS [facility] Stop: 09/08/21 07:29 Last Admin: 08/09/21 22:13 Dose: Not Given Documented by: Lorazepam (Lorazepam 2 Mg/1 Ml Vial) 0.5 mg IV Q4H PRN PRN Reason: Anxiety Stop: 09/08/21 01:21 Last Admin: 08/09/21 02:03 Dose: 0.5 mg Documented by: Miscellaneous (Carbohydrates For Hypoglycemia ) 15 - 30 gm PO UD PRN PRN Reason: Hypoglycemia Protocol Stop: 09/07/21 22:38 Miscellaneous Information (Pharmacy Glycemic Mgmt Consult) 1 ea N/A UD PRN; Protocol PRN Reason: Consult Stop: 09/07/21 22:38 Nitroglycerin (Nitroglycerin Sl 0.4 Mg/Tab Tab) 0.4 mg SL UD PRN PRN Reason: Chest Pain Stop: 09/07/21 22:38 Oxycodone/Acetaminophen (Oxycodone/Acetaminophen 5mg/325mg Tab) 1 tab PO BID PRN PRN Reason: Pain Stop: 08/22/21 23:12 Last Admin: 08/10/21 03:04 Dose: 1 tab Documented by: Pantoprazole Sodium (Pantoprazole 40 Mg Tab) 40 mg PO QAM [facility] Stop: 09/08/21 08:59 Last Admin: 08/09/21 07:43 Dose: 40 mg Documented by:
[2021-08-10] MEDS ORDERED: IRON SUCROSE 100 MG in SYRINGE 0 ML IV ONE (09:30)
[2021-08-10] MEDS: HEPARIN SOD (PORCINE) 1000 UNIT/ML IV SCH (13:02)
--- NOTE | 2021-08-10 15:09 | Discharge Summary ---
Date of Service August 10, 2021 Admission HPI Per Admitting Provider Patient is a 46-year-old male with PMH CAD s/p stent, DM I, ESRD on home HD, HTN, dyslipidemia, fatty liver, GERD, obesity presented to ER with complaint of increasing shortness of breath for the past week. Patient reports orthopnea and shortness of breath with exertion. Feeling lightheaded with standing. Denies chest pain, cough. He reports he does home hemodialysis and last treatment was last night. Patient reports typically does HD every other day. He states he has been taking his blood pressure at home and it has been trending downward. He also reports past month his hemoglobin has been downtrending and his Epogen has been increased to 3 times a week. Patient feels he is at his dry weight within a couple of pounds. Denies LE edema. Does feel that is abdomen is more firm than usual. Patient reports makes small amount of urine. Denies epistaxis, hematochezia, melena. Denies fever/chills, diaphoresis, N/V/D/C, COOPER, syncope, vision changes, neck pain, palpitations, sore throat, choking, otalgia, rhi norrhea, abdominal pain, paresthesias, weakness, rashes, urinary symptoms. Admission Exam Per Admitting Provider General: no distress, overweight Head: normocephalic, atraumatic Eyes: PERRL, EOM's intact, conjunctiva non-injected, anicteric ENT: normal inspection external ears, nose, mucous membranes moist Neck: supple, trachea midline Lungs: clear, no respiratory distress, no wheezing/rhonchi/rales CV: RRR, no murmur, trace pretibial edema Abd: protuberant, normal BS, soft, non-tender Ext: no cyanosis, no calf tenderness Neuro: A&O x 3, no focal deficits noted, normal affect Skin: warm, dry Principal Diagnosis Symptomatic anemia New Diagnosis of HFrEF Elevated Troponin ESRD on dialysis Discharge Exam GENERAL: Alert and oriented x3. NAD, on RA. HEENT: No pallor, no icterus. Pupils equal, round and reactive to light. Oral mucosa moist. NECK: No JVD, no neck masses. HEART: S1 and S2 heard. Regular rate and rhythm. No murmur, no gallop. RESPIRATORY: Normal AP diameter. No accessory muscle use. No wheezing, no crackles. ABDOMEN: Soft, bowel sounds present, nontender, no distention. NEURO: No facial droop. Speech is clear.Moves extremities. EXTREMITIES: 1+ pedal edema, no erythema seen. Discharge Data Allergies Allergy/AdvReac Type Severity Reaction Status Date / Time benzonatate Allergy Unknown told not Verified 08/08/21 18:57 to take ibuprofen Allergy Unknown told not Verified 08/08/21 18:57 to take baclofen AdvReac Severe sedation/co Verified 08/08/21 18:57 nfusion oxycodone AdvReac Intermediate Confusion Verified 08/08/21 18:57 FRED Inhibitors AdvReac Unknown Unknown Verified 08/08/21 18:57 Consultations 08/08/21 20:13 ED Decision to Admit Stat 08/09/21 07:00 Consult Nephrology Routine 08/09/21 11:05 Consult Cardiology Routine Ordered Studies 08/09/21 11:07 US venous doppler [facility] Routine Hospital Course (1) HFrEF (heart failure with reduced ejection fraction): 46 yo M with PMH of CAD s/p stent, DM I, ESRD on home HD, HTN, dyslipidemia, fatty liver, GERD, obesity presented to ER 08/08 with complaint of increasing shortness of breath for the past week, lightheadedness and low home BP's. Reported downtrending Hgb on home lab draws. Denies any signs or symptoms of bleeding. He is being managed for the followin) Symptomatic anemia: In ER patient afebrile, P: 60, BP 77/44, 100% on room air. No leukocytosis. CXR: Pulmonary vascular congestion. Respiratory panel negative Admitting Hgb: 7.2. Baseline ~10; s/p 1 unit PRBC on 08/08 Pt on Epogen 3x/wk as OP. Pt with improved s/s including shortness of breath and dizziness, and feels better, Hb above 8 Monitor Hb daily and as needed. No signs of bleeding. Nephrology plans to follow up Hgb closely as outpt. #. New Diagnosis of HFrEF #. Elevated Trop Troponin minimally elevated at presentation. Trends reviewed EKG at presentation with ST depression in lateral leads. Patient denied any chest pain. But patient presented with shortness of breath [see above]. Echo was done 08/09 with ejection fraction 25 to 30% with evidence of right ventricular strain. Akinesis of anterior/anteroseptal aguilar present. Discussed with cardiology, need to rule out PE. D-dimer elevated, ultrasound BLE Doppler sent, perfusion scan negative for PE. Discussed with nephrology, CTA chest cannot be done due to patient having some residual kidney function. Cardiology following - plans to follow as outpt - repeat Echo in 2 weeks (2) ESRD (end stage renal disease) on dialysis: Plan: On HD at home. Reports does HD 5 times a week. Last dialysis 08/07/2021 Resume patient's home Lasix 40 mg p.o. twice daily Nephrology following. (4) Coronary artery disease: Plan: S/p stent Continue aspirin, carvedilol, Plavix, statin (5) DM I (diabetes mellitus, type I): Plan: Type I DM per outpatient records A1c: 6.2 on 06/25/2021, however patient with ESRD NovoLog sliding scale at home, however patient reports is not taking his insulin as he feels his glucose is removed with dialysis. Is not on long acting insulin. in ER glucose: 362 Basal bolus insulin per protocol Glycemic consult for assistance with glycemic management Outpt follow up recommended and discussed with the pt. (6) Hypertension: Plan: BP low in ER Hold amlodipine, hydralazine, Terazosin Continue carvedilol with holding parameters BP now normalized - discussed with the pt to monitor BP at home and follow up with outpt providers (7) Dyslipidemia: Plan: Continue statin (8) Carotid artery stenosis: Plan: Continue aspirin, Plavix, statin Total Time Total Time Spent Total Time Spent (In Minutes): 40 Discharge Plan Discharge Items Patient Disposition: Home - Self-Care Reason For Visit: ANEMIA Discharge Diagnosis: Symptomatic anemia New Diagnosis of HFrEF Elevated Troponin ESRD on dialysis Activity: Per Instructions section Non-emergency contact: Primary Care Provider and Supervisor Coffee Call non-emergency contact if: you have any medication questions and your symptoms worsen Follow-up/Referrals: Arsenio Ramsay [Physician Supervisor Floor Assembly] - (Date & Time 08/22/2021 11:30 AM Provider LACQUERER 1 Department Cardiac Studies, [facility] 08/26/2021 3:00 PM Provider Arsenio Ramsay PA-C Department Cardiology, [facility] ) Grayson Swan MD [Primary Care Provider] - (Date & Time 08/16/2021 11:00 AM Provider Grayson Swan MD Department Family Practice [facility] ) Diet: Carb Count or DM1 and Heart Healthy Addtl Attending Provider Instructions: Follow up with your primary care doctor and grocery store clerk. Monitor your blood pressure at home if you can and discuss this with your health care providers. Your blood pressure medications may need further adjustment. Your blood sugar was also elevated, please follow up with your primary care doctor regarding this. Follow up with cardiology as there is a plan for repeat study - echocardiogram. Follow up with nephrology regarding your kidney disease and anemia. Per your instructor bridge - stop by [facility] today after your hospital discharge. You need to repeat your monthly dialysis labs, hemoglobin will also be checked. Pending Studies at Discharge: No Stand-Alone Forms: My [facility] [employer], Smoking Cessation Medications and DC Order Prescriptions: Continued furosemide [Lasix] 40 mg Tablet 40 mg PO BID RF: 0 atorvastatin 40 mg Tablet 40 mg PO HS RF: 0 carvedilol 25 mg Tablet 50 mg PO BID RF: 0 clopidogrel 75 mg Tablet 75 mg PO DAILY RF: 0 terazosin 2 mg Capsule 4 mg PO HS RF: 0 nitroglycerin [Nitrostat] 0.4 mg Tablet, Sublingual 0.4 mg Sublingual DIRECTED PRN (Reason: Chest Pain) RF: 0 omeprazole 20 mg Capsule,Delayed Release(Dr/Ec) 20 mg PO QAM RF: 0 insulin aspart U-100 [Novolog Flexpen U-100 Insulin] 100 unit/mL Insulin Pen 0 unit SUBCUT TID PRN (Reason: Hyperglycemia) RF: 0 aspirin 81 mg Tablet,Delayed Release (Dr/Ec) 81 mg PO DAILY RF: 0 hydralazine 100 mg tablet 100 mg PO TID RF: 0 oxycodone-acetaminophen 5-325 mg tablet 1 tab PO BID PRN (Reason: Pain) RF: 0 Discharge Orders: Discharge Order (Routine); Ordered 08/10/21 Ordered By: Dennis Arteaga Admission Data Admit Date/Time: 08/08/21 20:58 Attending Provider: Dennis Arteaga Admit Provider: Donald Richardson Primary Care Provider: Grayson Swan Other Providers: Donald Richardson ; Dahiana Rojas ; Craig Fried ; Randa Nicole Other Interventions: Discharge Summary Assessment (RN) Last Done: 08/10/21 14:17
[2021-08-11 03:42] LABS: HBSAG NON-REACTIVE (NON-REACTIVE)
== END 2021-08-10 15:38 | disposition home or self-care (01) | DRG 811 ==
LOC: ED 18:28 → SUATTDRO 20:58 → 2W 20:58

== ENCOUNTER 2021-08-22 20:14 | Observation (INO) ==
[2021-08-22 22:23] LABS: Basophils # (auto) 0.04 K/uL (0-0.2); Basophils % (auto) 0.7 %; Eosinophils # (auto) 0.18 K/uL (0-0.5); Hematocrit (blood only) 28.7 % (42-52); Hemoglobin 9.1 g/dL (14.0-18.0); Immature Granulocytes # (auto) 0.01 K/uL (0.00-0.02); Immature Granulocytes % (auto) 0.2 %; Lymphocytes # (auto) 0.79 K/uL (1.2-3.4); Lymphocytes % (auto) 13.1 %; Mean Corpuscular Hemoglobin 32.2 pg (25-34); Mean Corpuscular Hgb Conc 31.7 g/dL (32-36); Mean Corpuscular Volume 101.4 fL (80-100); Mean Platelet Volume 9.7 fL (7.4-10.4); Monocytes # (auto) 0.62 K/uL (0.11-0.59); Monocytes % (auto) 10.3 %; Neutrophils # (auto) 4.37 K/uL (1.4-6.5); Neutrophils % (auto) 72.7 %; Platelet Count 191 K/uL (130-400); RDW Coefficient of Variation 16.6 % (11.5-14.5); RDW Standard Deviation 61.3 fL (36.4-46.3); Red Blood Count 2.83 M/uL (4.7-6.1); White Blood Count 6.01 K/uL (4.8-10.8)
[2021-08-22 22:47] LABS: Albumin Globulin Ratio 1.3 (0.9-2); Albumin Level 4.2 gm/dl (3.4-5.0); Bilirubin,Total 0.7 mg/dl (0.2-1.0); Creatinine Clr Calc Pharmacy 15.6 ml/min; Est GFR (African American) 9.8 ml/min; Est GFR (Non-African American) 8.4 ml/min; Globulin 3.2 gm/dl (2.5-4.0); Total Protein 7.4 gm/dl (6.0-8.3)
[2021-08-23 00:09] LABS: Potassium 4.6 mmol/L (3.5-5.1)
[2021-08-23] MEDS ORDERED: oxyCODONE HCL IR 5 MG TAB (IMMEDIATE RELEASE) PO STA (00:23)
[2021-08-23] MEDS ORDERED: CEFEPIME 2,000 MG/20 ML VIAL IV STA (00:35)
--- NOTE | 2021-08-23 00:38 | Emergency Department Note ---
History of Present Illness General Chief complaint: Finger Pain Stated complaint: R MIDDLE FINGER INJURY/ SOMETHING POPPED AT TIP Time Seen by Provider: 08/22/21 22:05 History of Present Illness Maximum Pain Intensity: 5 This is a 46 year-old male with past medical history including hypertension, diabetes mellitus, and chronic kidney failure who presents to the Emergency Department for drainage from the tip of his right third distal phalanx for 1 hour. Patient reports history of necrosis of the tip of his third distal phalanx for the past year. Patient reports following up with [facility] and vascular regarding this. Patient has underwent X-ray and U/S of his finger with [facility] and denies recent use of antibiotics. Patient reports both specialties have recommended observation of the finger. However, within the past week, patient has been noticing increased fatigue. And this evening, patient hit his right fingers on the corner of his sink while trying to start his dialysis, which he does at home usually about every other night. The injury resulted in pain of his right third digit with release of discharge underneath the necrosed area. Patient denies fever, chills, altered mental status, numbness, and motor weakness of his right third digit. Home Medications Medication Instructions Recorded Confirmed Type atorvastatin 40 mg tablet 40 mg PO HS 02/13/18 08/23/21 History carvedilol 25 mg tablet 50 mg PO BID 02/13/18 08/23/21 History clopidogrel 75 mg tablet 75 mg PO DAILY 02/13/18 08/23/21 History furosemide 40 mg tablet (Lasix) 40 mg PO BID 02/13/18 08/23/21 History insulin aspart U-100 100 unit/mL 0 unit SUBCUT TID PRN 02/13/18 08/23/21 History (3 mL) subcutaneous pen (Novolog Flexpen U-100 Insulin aspart) nitroglycerin 0.4 mg sublingual 0.4 mg SUBLINGUAL DIRECTED PRN 02/13/18 08/23/21 History tablet (Nitrostat) omeprazole 20 mg capsule,delayed 20 mg PO QAM 02/13/18 08/23/21 History release terazosin 2 mg capsule 4 mg PO HS 02/13/18 08/23/21 History aspirin 81 mg tablet,delayed 81 mg PO DAILY 06/10/20 08/23/21 History release hydralazine 100 mg tablet 100 mg PO BID PRN 10/14/20 08/23/21 History oxycodone-acetaminophen 5 mg-325 1 tab PO BID PRN 08/08/21 08/23/21 History mg tablet Epogen Inj 0 mg INJ [id number] 08/23/21 08/23/21 History amlodipine 5 mg tablet 5 mg PO DAILY 08/23/21 08/23/21 History Allergies Allergy/AdvReac Type Severity Reaction Status Date / Time benzonatate Allergy Unknown told not Verified 08/23/21 01:14 to take ibuprofen Allergy Unknown told not Verified 08/23/21 01:14 to take baclofen AdvReac Severe sedation/co Verified 08/23/21 01:14 nfusion oxycodone AdvReac Intermediate Confusion Verified 08/23/21 01:14 FRED Inhibitors AdvReac Unknown Unknown Verified 08/23/21 01:14 Past Med/Surg History Medical History Acute left lumbar radiculopathy Bilateral carotid artery stenosis Monitored with Carotid Doppler q6 months. 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 Carotid artery stenosis Coronary artery disease Diabetes mellitus, insulin-dependent (IDDM or type I) DM I (diabetes mellitus, type I) Dyslipidemia ESRD (end stage renal disease) on dialysis GERD (gastroesophageal reflux disease) Gout Hypertension Hypertensive urgency Labile hypertension Orthostatic hypotension Presence of artificial eye LEFT Weakness Surgical History History of discectomy LUMBAR History of eye surgery MULTIPLE EYE SURGERIES S/T COMPLICATIONS OF DIABETES INCLUDING DETACHED RETINA, DSEAK PROCEDURES, AND ENUCLEATION OF LEFT EYE Status post cardiac catheterization Status post coronary artery stent placement 2009, NO HX OF [place]. [facility]. Family History Other Cancer Diabetes Gallbladder disease Heart disease Hypertension Social History Smoking Status: Never smoker Tobacco Type: Smokeless Tobacco (Dip or Chew) Second Hand Exposure: No; Hx Alcohol Use: No Hx Substance Use: No Preferred Language: Setswana Communication Ability: Effective Visual Impairment: Blindness Blind Aide Required: No Beliefs That Will Affect Care: None marital status: Current Living Situation: Spouse current occupational status: disabled Feels Safe at Home: Yes Assistive Devices: Cane Review of Systems A total of 10 systems reviewed and were otherwise negative Physical Exam Vital Signs Vital Signs - 24 hr 08/22/21 20:22 08/22/21 23:43 08/22/21 23:45 Temperature 36.5 C Temperature Source Temporal Artery Scan Pulse Rate 90 81 81 Respiratory Rate 18 16 17 Respiratory Effort / Characteristics Non-Labored Spontaneous Respiratory Depth Normal Blood Pressure 112/53 L 99/65 L Blood Pressure Mean 72 76 Pulse Oximetry 96 96 Oxygen Delivery Method Room Air Room Air Sepsis New/Unexplained Change in Mental Status N/A Sepsis Action Taken by Nursing No Action Required 08/23/21 00:00 Temperature Temperature Source Pulse Rate 69 Respiratory Rate 16 Respiratory Effort / Characteristics Respiratory Depth Blood Pressure Blood Pressure Mean Pulse Oximetry Oxygen Delivery Method Sepsis New/Unexplained Change in Mental Status Sepsis Action Taken by Nursing VITALS: Vitals are noted on the nurse's note and reviewed by myself. Vital signs stable. GENERAL: This is a 46-year-old white male, in no acute distress, nondiaphoretic, well-developed well-nourished. SKIN: Necrotic scab noted on the distal aspect of the right third digit. There is some purulent discharge oozing from underneath the area. The area is extremely tender to palpation. Otherwise the skin was without rashes, erythema, edema, or bruising. There is no tenting of the skin. Capillary refill less than 2 seconds. HEAD: Normocephalic atraumatic. EYES: Conjunctivae without injection, sclerae without icterus. NECK: Supple without nuchal rigidity. No lymphadenopathy. No JVD. HEART: Regular rate and rhythm without murmurs gallops or rubs. LUNGS: Clear to auscultation bilaterally without wheezes, rales or rhonchi. No retractions or accessory muscle use. MUSCULOSKELETAL: No muscle atrophy, erythema, or edema noted. Full range of motion without joint tenderness in all extremities. No tenderness to palpation except as noted. Normal gait. Strength 5/5 throughout. NEURO: Patient was alert and oriented to person place and time. Normal sensation to light and sharp touch. No focal neurological deficits. Course Course The patient was seen and evaluated as above. An order was placed for continuous cardiac monitoring. The monitor shows a normal sinus rhythm at a rate of 69 bpm. IV access obtained, labs drawn. Imaging performed and reviewed by myself and Dr. Gottlieb as noted. Labs reviewed by myself. I discussed the findings with the patient at bedside. Recommended admission. The patient was agreeable I discussed the case with my attending. I discussed case with the associate manager affiliate marketing I discussed the case with Dr. Lamas, [facility] physician. He did agree to see and evaluate the patient. Please see his dictation regarding ongoing management of this patient. Administered Medications Discontinued Medications Oxycodone HCl (Oxycodone Hcl Ir 5 Mg Tab (Immediate Release)) 5 mg PO NOW STA Stop: 08/23/21 00:24 Last Admin: 08/23/21 00:47 Dose: 5 mg Documented by: [id number] Medical Decision Making Differential Diagnosis Cellulitis, abscess, osteomyelitis, MRSA infection, DVT, necrotizing fasciitis, as well as other pathologies. Medical Records Attestation: I reviewed the patient's medical records. Home Medications Current Medication List: was personally reviewed by me Laboratory Data Leukocytosis. Anemia of 9.1 does appear to have improved from previous values. No thrombocytopenia. Potassium 4.6. Creatinine elevated at 7, however the patient is on hemodialysis. Blood glucose elevated at 266. Function without significant abnormality. COVID-19 testing negative Result diagrams: 08/22/21 22:00 08/22/21 23:39 Lab Results 08/22/21 08/22/21 08/22/21 Range/Units 22:00 22:00 23:39 WBC 6.01 (4.8-10.8) K/uL RBC 2.83 L (4.7-6.1) M/uL Hgb 9.1 L (14.0-18.0) g/dL Hct 28.7 L (42-52) % MCV 101.4 H (80-100) fL MCH 32.2 (25-34) pg MCHC 31.7 L (32-36) g/dL RDW Std Deviation 61.3 H (36.4-46.3) fL RDW Coeff of Nessa 16.6 H (11.5-14.5) % Plt Count 191 (130-400) K/uL MPV 9.7 (7.4-10.4) fL Immature Gran % (Auto) 0.2 % Neut % (Auto) 72.7 % Lymph % (Auto) 13.1 % Greer % (Auto) 10.3 % Eos % (Auto) 3.0 % Baso % (Auto) 0.7 % Neut # (Auto) 4.37 (1.4-6.5) K/uL Lymph # (Auto) 0.79 L (1.2-3.4) K/uL Greer # (Auto) 0.62 H (0.11-0.59) K/uL Eos # (Auto) 0.18 (0-0.5) K/uL Baso # (Auto) 0.04 (0-0.2) K/uL Immature Gran # (Auto) 0.01 (0.00-0.02) K/uL Sodium 131 L (136-145) mmol/L Potassium 4.6 (3.5-5.1) mmol/L Chloride 92 L (98-107) mmol/L Carbon Dioxide 28 (21-32) mmol/L Anion Gap 11 (3-11) BUN 42 H (6-23) mg/dl Creatinine 7.00 H* (0.6-1.4) mg/dl Est Cr Clr Drug Dosing 15.6 ml/min Est GFR ( Amer) 9.8 ml/min Est GFR (Non-Af Amer) 8.4 ml/min BUN/Creatinine Ratio 6.0 L (10-20) Glucose 266 H (70-99(Fasting)) mg/dl Calcium 9.0 (8.5-10.1) mg/dl Magnesium (1.7-2.4) mg/dl Total Bilirubin 0.7 (0.2-1.0) mg/dl AST 10 L (13-39) U/L ALT 6 L (7-52) U/L Alkaline Phosphatase 71 (34-104) U/L Total Creatine Kinase (30-223) U/L Total Protein 7.4 (6.0-8.3) gm/dl Albumin 4.2 (3.4-5.0) gm/dl Globulin 3.2 (2.5-4.0) gm/dl Albumin/Globulin Ratio 1.3 (0.9-2) TSH (0.300-4.500) uIu/ml SARS-CoV-2, RNA, NAAT (NEGATIVE) 08/22/21 08/22/21 08/23/21 Range/Units 23:39 23:39 Unknown WBC (4.8-10.8) K/uL RBC (4.7-6.1) M/uL Hgb (14.0-18.0) g/dL Hct (42-52) % MCV (80-100) fL MCH (25-34) pg MCHC (32-36) g/dL RDW Std Deviation (36.4-46.3) fL RDW Coeff of Nessa (11.5-14.5) % Plt Count (130-400) K/uL MPV (7.4-10.4) fL Immature Gran % (Auto) % Neut % (Auto) % Lymph % (Auto) % Greer % (Auto) % Eos % (Auto) % Baso % (Auto) % Neut # (Auto) (1.4-6.5) K/uL Lymph # (Auto) (1.2-3.4) K/uL Greer # (Auto) (0.11-0.59) K/uL Eos # (Auto) (0-0.5) K/uL Baso # (Auto) (0-0.2) K/uL Immature Gran # (Auto) (0.00-0.02) K/uL Sodium (136-145) mmol/L Potassium (3.5-5.1) mmol/L Chloride (98-107) mmol/L Carbon Dioxide (21-32) mmol/L Anion Gap (3-11) BUN (6-23) mg/dl Creatinine (0.6-1.4) mg/dl Est Cr Clr Drug Dosing ml/min Est GFR ( Amer) ml/min Est GFR (Non-Af Amer) ml/min BUN/Creatinine Ratio (10-20) Glucose (70-99(Fasting)) mg/dl Calcium (8.5-10.1) mg/dl Magnesium 2.2 (1.7-2.4) mg/dl Total Bilirubin (0.2-1.0) mg/dl AST (13-39) U/L ALT (7-52) U/L Alkaline Phosphatase (34-104) U/L Total Creatine Kinase 91 (30-223) U/L Total Protein (6.0-8.3) gm/dl Albumin (3.4-5.0) gm/dl Globulin (2.5-4.0) gm/dl Albumin/Globulin Ratio (0.9-2) TSH 3.014 (0.300-4.500) uIu/ml SARS-CoV-2, RNA, NAAT NEGATIVE (NEGATIVE) Imaging Data My Impression: X-ray right middle finger: Erosion of bone of the distal aspect of the distal phalanx of the right third digit concerning for osteomyelitis Blood Pressure Blood Pressure Findings: Normal blood pressure MDM Narrative This 46-year-old male patient presents to the emergency department today for evaluation of right middle finger pain and purulent discharge. The patient has been dealing with what appeared to be a necrotic scab on the distal aspect of the right middle finger for about a year. Today, he bumped it and caused it to open and started draining. X-ray is concerning for osteomyelitis with erosion of the bone of the distal aspect of the distal phalanx of the right third digit. The patient does not have any leukocytosis. Given his history of CKD and diabetes, as well as he notes he was told there may be a match soon for a kidney transplant, I did recommend inpatient evaluation and management of this illness. The patient does follow with [facility] already. He will be started on IV antibiotics (will defer to inpatient team given history of dialysis for continuity of care). Please see hospitalist dictation regarding ongoing management and care of this patient. The chart was completed utilizing [employer] Speech voice recognition software. Grammatical errors, random word insertions, pronoun errors, and incomplete sentences are an occasional consequence of this system due to software limitations, ambient noise, and hardware issues. Any formal questions or concerns about the content, text, or information contained within the body of this dictation should be directly addressed to the provider for clarification. Impression & Plan Osteomyelitis of finger of right hand, ESRD (end stage renal disease) on dialysis, DM I (diabetes mellitus, type I) Discharge Plan Visit Data Chief Complaint: Finger Pain Stated Complaint: R MIDDLE FINGER INJURY/ SOMETHING POPPED AT TIP ED Provider: Sam Gottlieb ED Midlevel Provider: Trina Yuen Prescriptions Prescriptions: No Action furosemide [Lasix] 40 mg Tablet 40 mg PO BID RF: 0 atorvastatin 40 mg Tablet 40 mg PO HS RF: 0 carvedilol 25 mg Tablet 50 mg PO BID RF: 0 clopidogrel 75 mg Tablet 75 mg PO DAILY RF: 0 terazosin 2 mg Capsule 4 mg PO HS RF: 0 nitroglycerin [Nitrostat] 0.4 mg Tablet, Sublingual 0.4 mg Sublingual DIRECTED PRN (Reason: Chest Pain) RF: 0 omeprazole 20 mg Capsule,Delayed Release(Dr/Ec) 20 mg PO QAM RF: 0 insulin aspart U-100 [Novolog Flexpen U-100 Insulin] 100 unit/mL Insulin Pen 0 unit SUBCUT TID PRN (Reason: Hyperglycemia) RF: 0 aspirin 81 mg Tablet,Delayed Release (Dr/Ec) 81 mg PO DAILY RF: 0 hydralazine 100 mg tablet 100 mg PO BID PRN (Reason: ..) RF: 0 oxycodone-acetaminophen 5-325 mg tablet 1 tab PO BID PRN (Reason: Pain) RF: 0 amlodipine 5 mg tablet 5 mg PO DAILY RF: 0 Epogen Inj 0 mg INJ [id number] RF: 0
[2021-08-23 00:57] LABS: Magnesium 2.2 mg/dl (1.7-2.4)
[2021-08-23] MEDS ORDERED: PIPERACILL/TAZOBAC CONSULT ACTIVE PRN (01:36)
[2021-08-23] MEDS ORDERED: PIPERACILLIN/TAZOBACTAM 4.5 GM/120 ML BAG IV ONE (01:36)
--- NOTE | 2021-08-23 01:36 | History & Physical Report ---
Date of Service August 23, 2021 Assessment & Plan Plan: Infected necrotic wound, right middle finger Longstanding problem Possible osteomyelitis No sepsis for now chronic systolic heart failure (EF 25 to 30%, TTE 2021), patient euvolemic hx CAD status post stent hypertension, patient currently hypotensive hyperlipidemia on statin Rx pulmonary hypertension DM1, well-controlled as of recent hemoglobin A1c of 6.01 June 2021 ESRD on home HD Acute on chronic hyponatremia chronic anemia, hemoglobin at baseline Medical telemetry given low BP Decrease maintenance Coreg dose for now Appropriate to hold other BP meds until BP stable CS, Cefepime Follow plain x-ray results of right finger May need additional imaging if osteomyelitis not excluded by plain x-ray Orthopedics consult Re: Infected wound right middle finger Appropriate to hold antiplatelet Rx for now given bleeding wound right middle finger Resume if bleeding resolved and hemoglobin stable Nephrology consult Re: Dialysis management Basal insulin, ISS BG goal 1 10-1 40, carb count coverage DVT prophylaxis. SCDs Re: Bleeding right middle finger wound Full code Patient's requesting updates from providers. Ms. Teressa Gerard, contact numbers [phone]. Text document was generated using [employer] voice recognition software. It may contain grammatical or spelling errors. Kindly contact undersigned for clarification of any documentation item in question. History of Present Illness Chief Complaint: Right middle finger wound infection Primary Care Provider: Grayson Swan MD History obtained from patient, family, and records. Medical history significant for chronic systolic heart failure (EF 25 to 30%, TTE 2021), CAD status post stent, hypertension, hyperlipidemia, pulmonary hypertension, DM1, ESRD on home HD, chronic hyponatremia, chronic anemia (baseline hemoglobin of 9-10), chronic right middle finger ulceration. Last confinement 2 weeks ago for symptomatic anemia No obvious source of bleed. Patient also found to have EF of 25 to 30% on 2D echo. Patient seen by cardiology during visit. Patient has had a chronic ulcerated wound on the right middle finger for about a year now. Patient seen by [facility] orthopedics outpatient April 2021. Impression was ischemic ulceration of the right middle finger associated with PVD. Outpatient RUE CT angio requested which later showed : Extensive atherosclerotic calcifications, limiting evaluation. Right upper extremity arteries appear patent to the hand. Limited evaluation of the palmar digital arteries due to dense atherosclerotic calcifications. Patient unable to follow-up with Orthopedics. Last week, patient noted swelling of the right middle finger more than usual. Some lightheadedness and fatigue. No fever, no chills. Last night patient accidentally hit his middle finger on the surface of the kitchen sink somewhat forcibly resulting in blood and purulent drainage from the ulcerated wound. Patient brought to the ER by for evaluation. SBP 90s at the ER at some point. MEDICAL HISTORY: As above. SURGICAL HISTORY: He had multiple laser surgeries for his retinopathy, dental surgery, enucleation left eye, detached retina repair, vascular procedures FAMILY HISTORY: Diabetes. Stroke. 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 Allergies Allergy/AdvReac Type Severity Reaction Status Date / Time benzonatate Allergy Unknown told not Verified 08/23/21 01:14 to take ibuprofen Allergy Unknown told not Verified 08/23/21 01:14 to take baclofen AdvReac Severe sedation/co Verified 08/23/21 01:14 nfusion oxycodone AdvReac Intermediate Confusion Verified 08/23/21 01:14 FRED Inhibitors AdvReac Unknown Unknown Verified 08/23/21 01:14 Home Medications Medication Instructions Recorded Confirmed Type atorvastatin 40 mg tablet 40 mg PO HS 02/13/18 08/23/21 History carvedilol 25 mg tablet 50 mg PO BID 02/13/18 08/23/21 History clopidogrel 75 mg tablet 75 mg PO DAILY 02/13/18 08/23/21 History furosemide 40 mg tablet (Lasix) 40 mg PO BID 02/13/18 08/23/21 History insulin aspart U-100 100 unit/mL 0 unit SUBCUT TID PRN 02/13/18 08/23/21 History (3 mL) subcutaneous pen (Novolog Flexpen U-100 Insulin aspart) nitroglycerin 0.4 mg sublingual 0.4 mg SUBLINGUAL DIRECTED PRN 02/13/18 08/23/21 History tablet (Nitrostat) omeprazole 20 mg capsule,delayed 20 mg PO QAM 02/13/18 08/23/21 History release terazosin 2 mg capsule 4 mg PO HS 02/13/18 08/23/21 History aspirin 81 mg tablet,delayed 81 mg PO DAILY 06/10/20 08/23/21 History release hydralazine 100 mg tablet 100 mg PO BID PRN 10/14/20 08/23/21 History oxycodone-acetaminophen 5 mg-325 1 tab PO BID PRN 08/08/21 08/23/21 History mg tablet Epogen Inj 0 mg INJ [id number] 08/23/21 08/23/21 History amlodipine 5 mg tablet 5 mg PO DAILY 08/23/21 08/23/21 History Past Med/Surg History Medical History Acute left lumbar radiculopathy Bilateral carotid artery stenosis Monitored with Carotid Doppler q6 months. 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 Carotid artery stenosis Coronary artery disease Diabetes mellitus, insulin-dependent (IDDM or type I) DM I (diabetes mellitus, type I) Dyslipidemia ESRD (end stage renal disease) on dialysis GERD (gastroesophageal reflux disease) Gout Hypertension Hypertensive urgency Labile hypertension Orthostatic hypotension Presence of artificial eye LEFT Weakness Surgical History History of discectomy LUMBAR History of eye surgery MULTIPLE EYE SURGERIES S/T COMPLICATIONS OF DIABETES INCLUDING DETACHED RETINA, DSEAK PROCEDURES, AND ENUCLEATION OF LEFT EYE Status post cardiac catheterization Status post coronary artery stent placement 2009, NO HX OF [place] [facility]. Family History Other Cancer Diabetes Gallbladder disease Heart disease Hypertension Social History Smoking Status: Never smoker Tobacco Type: Smokeless Tobacco (Dip or Chew) Second Hand Exposure: No; Hx Alcohol Use: No Hx Substance Use: No Preferred Language: Prydeinig Communication Ability: Effective Visual Impairment: Blindness Rn Advanced Required: No Beliefs That Will Affect Care: None marital status: Current Living Situation: Spouse current occupational status: disabled Other Information That Helps Us Care for You: No Feels Safe at Home: Yes Assistive Devices: None Assistive Devices Comment: prosthetic left eye Review of Systems Review of Systems: As per HPI, all other systems reviewed and negative Physical Exam Physical Exam: GENERAL: Comfortable, obese, no respiratory distress SKIN: Pallor, warm HEENT: pale palpebral conjunctivae, chronic ptosis left, moist buccal mucosa NECK : Supple, short neck, no tenderness CHEST : CTA, no tenderness HEART : RRR, no obvious murmurs ABDOMEN: Some distention, nontender EXTREMITIES : Minimal LE swelling, no LE tenderness; necrotic ulcerated wound, right middle finger with minimal tenderness with scant drainage with dried blood NEUROLOGIC : Coherent chronic ptosis left, no facial asymmetry, no other gross focality Results & Data Results & Data ([facility]) Vital Signs (Past 12 Hours) Vital Signs Temp Pulse Resp BP Pulse Ox 08/23/21 00:00 69 16 08/22/21 23:45 81 17 99/65 L 96 08/22/21 23:43 81 16 08/22/21:22 36.5 C 90 18 112/53 L 96 Laboratory Results Laboratory Results WBC 6.01 K/uL (4.8-10.8) 08/22/21 22:00 RBC 2.83 M/uL (4.7-6.1) L 08/22/21 22:00 Hgb 9.1 g/dL (14.0-18.0) L 08/22/21 22:00 Hct 28.7 % (42-52) L 08/22/21 22:00 MCV 101.4 fL (80-100) H 08/22/21 22:00 MCH 32.2 pg (25-34) 08/22/21 22:00 MCHC 31.7 g/dL (32-36) L 08/22/21 22:00 RDW Std Deviation 61.3 fL (36.4-46.3) H 08/22/21 22:00 RDW Coeff of Nessa 16.6 % (11.5-14.5) H 08/22/21 22:00 Plt Count 191 K/uL (130-400) 08/22/21 22:00 MPV 9.7 fL (7.4-10.4) 08/22/21 22:00 Immature Gran % (Auto) 0.2 % 08/22/21 22:00 Neut % (Auto) 72.7 % 08/22/21 22:00 Lymph % (Auto) 13.1 % 08/22/21 22:00 Mcminn % (Auto) 10.3 % 08/22/21 22:00 Eos % (Auto) 3.0 % 08/22/21 22:00 Baso % (Auto) 0.7 % 08/22/21 22:00 Neut # (Auto) 4.37 K/uL (1.4-6.5) 08/22/21 22:00 Lymph # (Auto) 0.79 K/uL (1.2-3.4) L 08/22/21 22:00 Mcminn # (Auto) 0.62 K/uL (0.11-0.59) H 08/22/21 22:00 Eos # (Auto) 0.18 K/uL (0-0.5) 08/22/21 22:00 Baso # (Auto) 0.04 K/uL (0-0.2) 08/22/21 22:00 Immature Gran # (Auto) 0.01 K/uL (0.00-0.02) 08/22/21 22:00 Sodium 131 mmol/L (136-145) L 08/22/21 22:00 Potassium 4.6 mmol/L (3.5-5.1) 08/22/21 23:39 Chloride 92 mmol/L (98-107) L 08/22/21 22:00 Carbon Dioxide 28 mmol/L (21-32) 08/22/21 22:00 Anion Gap 11 (3-11) 08/22/21 22:00 BUN 42 mg/dl (6-23) H 08/22/21 22:00 Creatinine 7.00 mg/dl (0.6-1.4) H* 08/22/21 22:00 Est Cr Clr Drug Dosing 15.6 ml/min 08/22/21 22:00 Est GFR ( Amer) 9.8 ml/min 08/22/21 22:00 Est GFR (Non-Af Amer) 8.4 ml/min 08/22/21 22:00 BUN/Creatinine Ratio 6.0 (10-20) L 08/22/21 22:00 Glucose 266 mg/dl (70-99(Fasting)) H 08/22/21 22:00 Calcium 9.0 mg/dl (8.5-10.1) 08/22/21 22:00 Magnesium 2.2 mg/dl (1.7-2.4) 08/22/21 23:39 Total Bilirubin 0.7 mg/dl (0.2-1.0) 08/22/21 22:00 AST 10 U/L (13-39) L 08/22/21 23:39 ALT 6 U/L (7-52) L 08/22/21 22:00 Alkaline Phosphatase 71 U/L (34-104) 08/22/21 22:00 Total Creatine Kinase 91 U/L (30-223) 08/22/21 23:39 Total Protein 7.4 gm/dl (6.0-8.3) 08/22/21 22:00 Albumin 4.2 gm/dl (3.4-5.0) 08/22/21 22:00 Globulin 3.2 gm/dl (2.5-4.0) 08/22/21 22:00 Albumin/Globulin Ratio 1.3 (0.9-2) 08/22/21 22:00 TSH 3.014 uIu/ml (0.300-4.500) 08/22/21 23:39 Diagnostic Findings Chest x-ray as per my interpretation cardiomegaly Right middle finger x-ray read pending
[2021-08-23] MEDS ORDERED: INSULIN GLARGINE SOLOSTAR 100 UNITS/ML 3 ML PEN SC STA (01:37)
[2021-08-23] MEDS ORDERED: DEXTROSE 50% 50 ML SYRINGE IV PRN (03:14)
[2021-08-23] MEDS ORDERED: GLUCAGON FOR INJ 1 MG VIAL SQ PRN (03:14)
[2021-08-23] MEDS ORDERED: GLUCOSE 10 TABS/TUBE PO PRN (03:14)
[2021-08-23] MEDS ORDERED: GLUCOSE 40% GEL 15 GM TUBE PO PRN (03:14)
[2021-08-23] MEDS ORDERED: CARBOHYDRATES FOR HYPOGLYCEMIA PO PRN (03:14)
[2021-08-23] MEDS ORDERED: PROMETHAZINE HCL 12.5 MG in SODIUM CHLORIDE 0.9% 50 ML IV PRN (03:14)
[2021-08-23] MEDS: oxyCODONE HCL IR 5 MG TAB (IMMEDIATE RELEASE) PO PRN ×3 (04:34→14:27)
[2021-08-23] MEDS: INSULIN ASPART PER UNIT SC SCH ×4 (04:37→17:26)
[2021-08-23 06:54] LABS: Basophils # (auto) 0.03 K/uL (0-0.2); Basophils % (auto) 0.5 %; Eosinophils % (auto) 3.5 %; Hematocrit (blood only) 28.3 % (42-52); Hemoglobin 8.8 g/dL (14.0-18.0); Immature Granulocytes # (auto) 0.01 K/uL (0.00-0.02); Immature Granulocytes % (auto) 0.2 %; Lymphocytes # (auto) 0.99 K/uL (1.2-3.4); Lymphocytes % (auto) 17.3 %; Mean Corpuscular Hemoglobin 31.4 pg (25-34); Mean Corpuscular Hgb Conc 31.1 g/dL (32-36); Mean Corpuscular Volume 101.1 fL (80-100); Mean Platelet Volume 9.8 fL (7.4-10.4); Monocytes # (auto) 0.57 K/uL (0.11-0.59); Neutrophils # (auto) 3.91 K/uL (1.4-6.5); Neutrophils % (auto) 68.5 %; Platelet Count 186 K/uL (130-400); RDW Coefficient of Variation 16.5 % (11.5-14.5); RDW Standard Deviation 61.1 fL (36.4-46.3); White Blood Count 5.71 K/uL (4.8-10.8)
--- NOTE | 2021-08-23 07:10 | XRay Report ---
XR finger(s) RT min 2V CLINICAL HISTORY: pain, struck on counter, wound tip of finger. COMPARISON STUDY: No previous studies for comparison. TECHNIQUE: 3 right third finger views FINDINGS: Bones: There is evidence for previous amputation of the distal third finger. The distal tuft of the t hird finger is no longer present. The margins are ill-defined in the presence of osteomyelitis cannot be excluded. There is no evidence for an acute fracture or dislocation. There is no lytic or blastic lesion. Joints: The joint spaces are maintained. The bones are in anatomic alignment. Soft tissues: There is diffuse soft tissue swelling present of the third finger. Vascular calcificati ons also seen. There is no radiopaque foreign body. IMPRESSION: 1. Evidence for previous amputation of the distal third finger with soft tissue swelling and cortical irregularity of the distal tuft of the distal phalanx. The presence of osteomyelitis cannot be exclu ded. ACT 112: Negative or not required by law. Electronically signed by: Jas Dao M.D. 08/23/2021 7:09 AM
--- NOTE | 2021-08-23 07:22 | XRay Report ---
XR chest 1V portable CLINICAL HISTORY: hyponatremia. Evaluate cardiopulmonary status COMPARISON STUDY: 08/08/2021 TECHNIQUE: 1 view of the chest FINDINGS: Single frontal view of the chest demonstrates the heart to again be enlarged. The lungs are clear of alveolar opacities. There is no evidence for pleural effusion. There is no evidence for vascular chance estion. There is no acute osseous pathology. IMPRESSION: 1. No acute cardiopulmonary disease. Cardiomegaly is again seen. ACT 112: Negative or not required by law. Electronically signed by: Jas Dao M.D. 08/23/2021 7:21 AM
[2021-08-23 07:24] LABS: BUN Creatinine Ratio 5.8 (10-20); Calcium 9.1 mg/dl (8.5-10.1); Creatinine Clr Calc Pharmacy 14.5 ml/min; Est GFR (African American) 8.9 ml/min; Est GFR (Non-African American) 7.7 ml/min; Potassium 4.5 mmol/L (3.5-5.1)
[2021-08-23] MEDS ORDERED: HEPARIN SOD (PORCINE) 1000 UNIT/ML IV ONE (07:59)
[2021-08-23] MEDS ORDERED: SODIUM CHLORIDE 0.9% 1000ML 1,000 ML IV PRN (07:59)
[2021-08-23] MEDS ORDERED: EPOETIN ALFA 20,000 UNITS/ML VIAL IV SCH (08:00)
[2021-08-23] MEDS: PANTOprazole 40 MG TAB PO SCH (08:12)
[2021-08-23] MEDS ORDERED: carvediloL 3.125 MG TAB PO SCH (09:00)
[2021-08-23] MEDS: PIPERACILLIN/TAZOBACTAM 3.375 GM in DEXTROSE 5% 100 ML IV SCH (10:23)
--- NOTE | 2021-08-23 11:14 | Orthopedic Consultation ---
Date of Consultation August 23, 2021 Assessment & Plan (1) Osteomyelitis of finger of right hand: Possible osteomyelitis of the tuft of the third right fingertip. Pt with ongoing infection of the right third fingertip. I have discussed the case with Dr. Read who is on-call today. We will plan on a noncontrast MRI of the right third finger. I discussed with the patient that there is possibility of a need of irrigation and debridement versus fingertip amputation. Patient understands. We will obtain an MRI and decide on further treatment thereafter. Continue current antibiotic regimen. Of note, if surgery is needed, Dr. Read is available tomorrow after 4 PM. Patient is due for dialysis this afternoon which will be fairly lengthy in time. History of Present Illness Reason for Consultation: Right third fingertip infection Attending Physician: Randa Nicole MD History of Present Illness Patient is a 46-year-old male with past medical history significant for chronic systolic heart failure (EF 25 to 30%, TTE 2021), CAD status post stent, hypertension, hyperlipidemia, pulmonary hypertension, DM1, ESRD on home HD, chronic hyponatremia, chronic anemia (baseline hemoglobin of 9-10), chronic right middle finger ulceration. Patient states that he has been dealing with this right middle finger wound for approximately 8 months. He states that it initially started out as a small dry crack at the end of his fingertip. He states that he would normally get these and they would heal up. This however, did not. He states he has been treated by his family practitioner who eventually sent him to a [facility] orthopedics team. They in turn treated conservatively and forwarded him to Vascular Team. After evaluation, patient states that they found he had adequate blood flow into his fingers until about the PIP area and then it began to slowly diminish. They felt that if he needed surgery on his fingers, that they would heal fine but would take longer. He states since that time, he has been seeing his Family practitioner. He denies antibiotic use during this whole time. He states that he has had pain in the distal fingertip almost as long as he has had the wound. He states that it never really drained much however yesterday, the patient ended up catching a portion of the eschar tearing it open. He had moderate pain at that time and he states that he ended up having a moderate amount of blood and purulent fluid come from the wound. At that point he thought he should be seen and came into the emergency room. After being seen, he was admitted for further care. We have been asked to see him for his right third finger wound. Allergies Allergy/AdvReac Type Severity Reaction Status Date / Time benzonatate Allergy Unknown told not Verified 08/23/21 01:14 to take ibuprofen Allergy Unknown told not Verified 08/23/21 01:14 to take baclofen AdvReac Severe sedation/co Verified 08/23/21 01:14 nfusion oxycodone AdvReac Intermediate Confusion Verified 08/23/21 01:14 FRED Inhibitors AdvReac Unknown Unknown Verified 08/23/21 01:14 Home Medications Medication Instructions Recorded Confirmed Type atorvastatin 40 mg tablet 40 mg PO HS 02/13/18 08/23/21 History carvedilol 25 mg tablet 50 mg PO BID 02/13/18 08/23/21 History clopidogrel 75 mg tablet 75 mg PO DAILY 02/13/18 08/23/21 History furosemide 40 mg tablet (Lasix) 40 mg PO BID 02/13/18 08/23/21 History insulin aspart U-100 100 unit/mL 0 unit SUBCUT TID PRN 02/13/18 08/23/21 History (3 mL) subcutaneous pen (Novolog Flexpen U-100 Insulin aspart) nitroglycerin 0.4 mg sublingual 0.4 mg SUBLINGUAL DIRECTED PRN 02/13/18 08/23/21 History tablet (Nitrostat) omeprazole 20 mg capsule,delayed 20 mg PO QAM 02/13/18 08/23/21 History release terazosin 2 mg capsule 4 mg PO HS 02/13/18 08/23/21 History aspirin 81 mg tablet,delayed 81 mg PO DAILY 06/10/20 08/23/21 History release hydralazine 100 mg tablet 100 mg PO BID PRN 10/14/20 08/23/21 History oxycodone-acetaminophen 5 mg-325 1 tab PO BID PRN 08/08/21 08/23/21 History mg tablet Epogen Inj 0 mg INJ [id number] 08/23/21 08/23/21 History amlodipine 5 mg tablet 5 mg PO DAILY 08/23/21 08/23/21 History cephalexin 500 mg capsule 500 mg PO BID #4 cap 08/24/21 Rx sulfamethoxazole 800 1 tab PO UD #12 tab 08/24/21 Rx mg-trimethoprim 160 mg tablet (Bactrim DS) Patient History Medical History (Updated 08/23/21 @ 11:42 by Dahiana Rojas MD, PhD) Acute left lumbar radiculopathy Anemia Bilateral carotid artery stenosis Monitored with Carotid Doppler q6 months. 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 Carotid artery stenosis Coronary artery disease Diabetes mellitus, insulin-dependent (IDDM or type I) DM I (diabetes mellitus, type I) Dyslipidemia ESRD (end stage renal disease) on dialysis GERD (gastroesophageal reflux disease) Gout Hypertension Hypertensive urgency Labile hypertension Orthostatic hypotension Presence of artificial eye LEFT Ulcer of finger R third digit Weakness Surgical History History of discectomy LUMBAR History of eye surgery MULTIPLE EYE SURGERIES S/T COMPLICATIONS OF DIABETES INCLUDING DETACHED RETINA, DSEAK PROCEDURES, AND ENUCLEATION OF LEFT EYE Status post cardiac catheterization Status post coronary artery stent placement 2009, NO HX OF [place] [facility]. Family History Other Cancer Diabetes Gallbladder disease Heart disease Hypertension Social History Smoking Status: Never smoker Tobacco Type: Smokeless Tobacco (Dip or Chew) Second Hand Exposure: No; Hx Alcohol Use: No Hx Substance Use: No Preferred Language: Turkmen Communication Ability: Effective Visual Impairment: Blindness Criminalist Technician Required: No Beliefs That Will Affect Care: None marital status: Current Living Situation: Spouse current occupational status: disabled Other Information That Helps Us Care for You: No Feels Safe at Home: Yes Assistive Devices: None Assistive Devices Comment: prosthetic left eye Physical Exam Physical Exam: Patient is a 46-year-old white male who is alert and oriented x3, no acute distress, pleasant and cooperative. On examination, the right middle finger is examined. Patient has a noted eschar at the fingertip that is adjacent to fingernail and goes underneath the fingernail just a few millimeters. There is no foul odor and there is no drainage right now. The eschar is slightly mobile. He has slight erythema of the fingertip. He has moderate tenderness on palpation of the fingertip. I cannot express any purulence at this time. Sensation is decreased at the tip of the eschar but less so along the pulp of the fingertip. Capillary refill is sluggish. He has good range of motion of the fingertip at the DIP, PIP and MP joint. There is no pain with passive dorsiflexion. No pain with flexion. No increased swelling of the finger itself and no erythema noted traveling proximally. Results & Data ([facility]) Vital Signs (Past 12 Hours) Vital Signs Temp Pulse Pulse Resp BP BP BP 08/23/21 11:10 36.3 C L 63 18 137/79 08/23/21 08:03 36.4 C L 64 18 112/71 08/23/21 07:21 65 08/23/21 03:32 65 08/23/21 03:20 36.5 C 66 14 123/83 08/23/21 03:14 36.5 C 66 14 123/83 08/23/21 01:45 82 17 08/23/21 01:30 88 20 08/23/21 01:15 83 14 08/23/21 01:00 84 22 08/23/21 00:45 69 14 08/23/21 00:30 68 18 08/23/21 00:15 71 17 08/23/21 00:00 69 16 08/22/21 23:45 81 17 99/65 L 08/22/21 23:43 81 16 Pulse Ox Pulse Ox 08/23/21 11:10 100 08/23/21 08:03 99 08/23/21 07:21 08/23/21 03:32 08/23/21 03:20 99 08/23/21 03:14 99 99 08/23/21 01:45 08/23/21 01:30 08/23/21 01:15 98 08/23/21 01:00 08/23/21 00:45 08/23/21 00:30 96 08/23/21 00:15 08/23/21 00:00 08/22/21 23:45 96 08/22/21 23:43 Diagnostic Findings Patient:LALITA SALADNA Admit Date:08/23/21 MR#:[id number] Address1:[address] Acct ID:[id number] Address2: Date:1975 [facility] Zip:[place] [address] Age:46 Location:2W Sex:M Room/Bed:[facility] Att Phy:Randa Nicole MD Diagnosis:LOW BP, HYPONATREMIA, INFECTED FINGER WOUND Sarah Phy:Grayson Swan MD Service Date:08/22/21 Fam Phy: Interpreting Phy:Jas Dao MDAdmit Phy:Parvez Lamas MD Ordering Phy:Trina Yuen PA-C cc: ~ XR finger(s) RT min 2V CLINICAL HISTORY: pain, struck on counter, wound tip of finger. COMPARISON STUDY: No previous studies for comparison. TECHNIQUE: 3 right third finger views FINDINGS: Bones: There is evidence for previous amputation of the distal third finger. The distal tuft of the third finger is no longer present. The margins are ill- defined in the presence of osteomyelitis cannot be excluded. There is no evidence for an acute fracture or dislocation. There is no lytic or blastic lesion. Joints: The joint spaces are maintained. The bones are in anatomic alignment. Soft tissues: There is diffuse soft tissue swelling present of the third finger. Vascular calcifications also seen. There is no radiopaque foreign body. IMPRESSION: 1. Evidence for previous amputation of the distal third finger with soft tissue swelling and cortical irregularity of the distal tuft of the distal phalanx. The presence of osteomyelitis cannot be excluded. ACT 112: Negative or not required by law.
--- NOTE | 2021-08-23 11:39 | Nephrology Consultation ---
Date of Consultation August 23, 2021 Assessment & Plan (1) ESRD (end stage renal disease) on dialysis: plan for HD this afternoon; further txs to depend on clinical status; pt with mild volume overload; worrisome hypotension at admission so far more c/w his chronic labile hypotension though note many bp meds held -daily bmp -cont low dose BB (2) Anemia: goal hgb is 10; pt listed for renal txplt and thus hoping to avoid pRBC if possible; -nephro to manage/ dose SHARMILA aggressively; may have SHARMILA resistance w/ infection -daily cbc (3) Osteomyelitis of finger of right hand: per orthopedic recommendations -recommend avoiding gadolinium if at all possible > note team recommends non con MRI and possible I&D versus amputation (4) HFrEF (heart failure with reduced ejection fraction): for OP follow up; may be transient per last cardiology eval History of Present Illness Reason for Consultation: ESRD on HD Requesting Physician: Dr Lamas Attending Physician: Randa Nicole MD History of Present Illness 46 y/o M home hemodialysis whom I'm asked to see for dialysis needs was admitted overnight for evaluation of R third fingertip infection at the site of chronic fingertip ulcer which burst yesterday after pt bumped it on a countertop. He was recently admitted here 08/09 x 24 hr for symptomatic anemia. No bleeding source found; pt had a unit of pRBC and his outpatient epogen dose was adjusted. Other medical history includes type 1 diabetes, non obstructive coronary artery disease per 2019 cath, hypertension hyperlipidemia fatty liver. At admission earlier this month he was noted to have new drop in EF to 25 to 30% with modera te global hypokinesis and evidence of right heart strain; previous TTE 12/2020 had EF 53% and no significant R heart findings. Plan was for repeat TTE late this month. He has had R third finger ulcer for months, takes opiate pain medication intermittently for this; has been seen by [facility] orthopedics for this. No NSAIDs. He is a home hemodialysis patient under my care at [facility] and dialyzes 5 days weekly via AV fistula. His hemoglobin has been fairly labile for the past several months but improving since hospital discharge. Ongoing R 3rd digit pain and restless leg symptoms, which accompany his anemia. mild orthostatic symptoms and LE edema. Denies nausea vomiting, challenges with dialysis. He makes urine daily; no dysuria/gross hematuria. His last treatment was 08/21. Allergies Allergy/AdvReac Type Severity Reaction Status Date / Time benzonatate Allergy Unknown told not Verified 08/23/21 01:14 to take ibuprofen Allergy Unknown told not Verified 08/23/21 01:14 to take baclofen AdvReac Severe sedation/co Verified 08/23/21 01:14 nfusion oxycodone AdvReac Intermediate Confusion Verified 08/23/21 01:14 FRED Inhibitors AdvReac Unknown Unknown Verified 08/23/21 01:14 Home Medications Medication Instructions Recorded Confirmed Type atorvastatin 40 mg tablet 40 mg PO HS 02/13/18 08/23/21 History carvedilol 25 mg tablet 50 mg PO BID 02/13/18 08/23/21 History clopidogrel 75 mg tablet 75 mg PO DAILY 02/13/18 08/23/21 History furosemide 40 mg tablet (Lasix) 40 mg PO BID 02/13/18 08/23/21 History insulin aspart U-100 100 unit/mL 0 unit SUBCUT TID PRN 02/13/18 08/23/21 History (3 mL) subcutaneous pen (Novolog Flexpen U-100 Insulin aspart) nitroglycerin 0.4 mg sublingual 0.4 mg SUBLINGUAL DIRECTED PRN 02/13/18 08/23/21 History tablet (Nitrostat) omeprazole 20 mg capsule,delayed 20 mg PO QAM 02/13/18 08/23/21 History release terazosin 2 mg capsule 4 mg PO HS 02/13/18 08/23/21 History aspirin 81 mg tablet,delayed 81 mg PO DAILY 06/10/20 08/23/21 History release hydralazine 100 mg tablet 100 mg PO BID PRN 10/14/20 08/23/21 History oxycodone-acetaminophen 5 mg-325 1 tab PO BID PRN 08/08/21 08/23/21 History mg tablet Epogen Inj 0 mg INJ [id number] 08/23/21 08/23/21 History amlodipine 5 mg tablet 5 mg PO DAILY 08/23/21 08/23/21 History Patient History Medical History (Updated 08/23/21 @ 11:42 by Dahiana Rojas MD, PhD) Acute left lumbar radiculopathy Anemia Bilateral carotid artery stenosis Monitored with Carotid Doppler q6 months. 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 Carotid artery stenosis Coronary artery disease Diabetes mellitus, insulin-dependent (IDDM or type I) DM I (diabetes mellitus, type I) Dyslipidemia ESRD (end stage renal disease) on dialysis GERD (gastroesophageal reflux disease) Gout Hypertension Hypertensive urgency Labile hypertension Orthostatic hypotension Presence of artificial eye LEFT Ulcer of finger R third digit Weakness Surgical History History of discectomy LUMBAR History of eye surgery MULTIPLE EYE SURGERIES S/T COMPLICATIONS OF DIABETES INCLUDING DETACHED RETINA, DSEAK PROCEDURES, AND ENUCLEATION OF LEFT EYE Status post cardiac catheterization Status post coronary artery stent placement 2009, NO HX OF [facility]. Family History Other Cancer Diabetes Gallbladder disease Heart disease Hypertension Social History Smoking Status: Never smoker Tobacco Type: Smokeless Tobacco (Dip or Chew) Second Hand Exposure: No; Hx Alcohol Use: No Hx Substance Use: No Preferred Language: Yi Communication Ability: Effective Visual Impairment: Blindness Film Booker Required: No Beliefs That Will Affect Care: None marital status: Current Living Situation: Spouse current occupational status: disabled Other Information That Helps Us Care for You: No Feels Safe at Home: Yes Assistive Devices: None Assistive Devices Comment: prosthetic left eye Review of Systems Review of Systems: All systems reviewed & are unremarkable except as noted in Subjective Physical Exam 2 Constitutional: well developed and well nourished on RA sitting on side of bed Eyes: EOM intact bilaterally ENMT: Ears: no external ear abnormality Nose: no external nose abnormality Mouth: + dry oral mucous membranes Neck: no nuchal rigidity Respiratory: normal respiratory effort Auscultation: + diminished lung sounds Cardiovascular: Rate/Rhythm: regular rate and regular rhythm Extremities: + edema and + AV fistula (+t/b) Gastrointestinal (Abdomen): Inspection/Auscultation: normal bowel sounds Percussion/Palpation: abdomen soft; abdomen nontender Musculoskeletal: Extremities: strength 5/5 throughout Skin: no rashes, warm and dry R 3rd finger tip wrapped Neurologic: hoover, fluent speech, no tremor Psychiatric: Orientation: oriented x 3 Results & Data ([facility]) Vital Signs (Past 12 Hours) Vital Signs Temp Pulse Pulse Resp BP BP BP 08/23/21 11:10 36.3 C L 63 18 137/79 08/23/21 08:03 36.4 C L 64 18 112/71 08/23/21 07:21 65 08/23/21 03:32 65 08/23/21 03:20 36.5 C 66 14 123/83 08/23/21 03:14 36.5 C 66 14 123/83 08/23/21 01:45 82 17 08/23/21 01:30 88 20 08/23/21 01:15 83 14 08/23/21 01:00 84 22 08/23/21 00:45 69 14 08/23/21 00:30 68 18 08/23/21 00:15 71 17 08/23/21 00:00 69 16 08/22/21 23:45 81 17 99/65 L 08/22/21 23:43 81 16 Pulse Ox Pulse Ox 08/23/21 11:10 100 08/23/21 08:03 99 08/23/21 07:21 08/23/21 03:32 08/23/21 03:20 99 08/23/21 03:14 99 99 08/23/21 01:45 08/23/21 01:30 08/23/21 01:15 98 08/23/21 01:00 08/23/21 00:45 08/23/21 00:30 96 08/23/21 00:15 08/23/21 00:00 08/22/21 23:45 96 08/22/21 23:43 Laboratory Results 08/23/21 05:45 08/23/21 05:45 Diagnostic Findings CXR no acute CP dz Finger XR cannot r/o osteo
[2021-08-23] MEDS ORDERED: VANCOMYCIN CONSULT ACTIVE PRN (13:19)
[2021-08-23] MEDS ORDERED: LORazepam 0.5 MG TAB PO STA (13:21)
--- NOTE | 2021-08-23 13:25 | Pharmacy Report ---
Pharmacy [facility] Short Note - Date of Service August 23, 2021 - Assessment & Plan Assessment 46 year old M receiving ZOSYN/VANCOMYCIN for treatment of finger osteomyelitis. Cultures are pending. MRI pending. Patient is an HD patient with planned HD today, will dose vancomycin by levels with first dose after dialysis, will obtain random level for dosing assistance/uncertain of next HD session. Plan Vancomycin * 2000 mg (~20 mg/kg)x 1 * Random level in AM Zosyn dosed appropriately for HD Pharmacy will continue to follow and will adjust dose/frequency as necessary. Thank you.
[2021-08-23] MEDS ORDERED: VANCOMYCIN HCL 2,000 MG in SODIUM CHLORIDE 0.9% 500 ML IV ONE (15:00)
--- NOTE | 2021-08-23 15:26 | Communication Note ---
Date of Service: August 23, 2021 Patient seen and examined at bedside for infected necrotic wound of right middle finger. Patient is on hemodialysis, nephrology has been consulted for he modialysis management, appreciate recommendation. For detailed information on patient, please refer to today's H&P. Discussed with orthopedics, will get MRI of right hand, further evaluation will be tomorrow per orthopedics. For now we will cover with empiric Vanco and Zosyn. Narrow antibiotics based on C/S and further evaluation. Resume aspirin. Resume antihypertensives gradually. Upon Exam GENERAL: Alert and oriented x3. NAD, on RA. HEENT: No pallor, no icterus. Pupils equal, round and reactive to light. Oral mucosa moist. NECK: No JVD, no neck masses. HEART: S1 and S2 heard. Regular rate and rhythm. No murmur, no gallop. RESPIRATORY SYSTEM: Normal AP diameter. No accessory muscle use. No wheezing, no crackles. ABDOMEN: Soft, bowel sounds present, nontender, no distention. CENTRAL NERVOUS SYSTEM: No facial droop. Speech is clear. Obeys simple commands. Moves extremities. EXTREMITIES: 1-2 + BLE edema, no erythema seen. Rt third finger with necrotic ulcerated wound with pus noted.
[2021-08-23] MEDS ORDERED: POLYETHYLENE (MIRALAX) 17 GM PACK PO PRN (15:40)
[2021-08-23] MEDS ORDERED: INSULIN GLARGINE SOLOSTAR 100 UNITS/ML 3 ML PEN SC SCH (21:00)
[2021-08-23] MEDS ORDERED: carvediloL 25 MG TAB PO SCH (21:00)
[2021-08-23] MEDS ORDERED: ATORVASTATIN 40 MG TAB PO SCH (21:00)
[2021-08-23] MEDS: HEPARIN SOD (PORCINE) 1000 UNIT/ML IV SCH ×2 (21:36→22:26)
[2021-08-23] MEDS: carvediloL 12.5 MG TAB PO SCH (23:51)
[2021-08-24] MEDS: PIPERACILLIN/TAZOBACTAM 3.375 GM in DEXTROSE 5% 100 ML IV SCH (00:09)
[2021-08-24] MEDS: oxyCODONE HCL IR 5 MG TAB (IMMEDIATE RELEASE) PO PRN ×2 (00:11→04:48)
[2021-08-24] MEDS: ACETAMINOPHEN 325 MG TAB PO PRN ×2 (00:11→04:48)
[2021-08-24] MEDS: INSULIN ASPART PER UNIT SC SCH ×2 (00:13→08:22)
[2021-08-24] MEDS ORDERED: LORazepam 0.5 MG TAB PO SCH (04:05)
[2021-08-24 06:54] LABS: Hematocrit (blood only) 26.8 % (42-52); Hemoglobin 8.6 g/dL (14.0-18.0); Mean Corpuscular Hemoglobin 31.9 pg (25-34); Mean Corpuscular Hgb Conc 32.1 g/dL (32-36); Mean Corpuscular Volume 99.3 fL (80-100); Platelet Count 162 K/uL (130-400); RDW Coefficient of Variation 16.6 % (11.5-14.5); RDW Standard Deviation 59.6 fL (36.4-46.3); White Blood Count 5.15 K/uL (4.8-10.8)
[2021-08-24 07:10] LABS: BUN Creatinine Ratio 4.5 (10-20); Calcium 8.9 mg/dl (8.5-10.1); Creatinine Clr Calc Pharmacy 24.4 ml/min; Est GFR (African American) 16.8 ml/min; Est GFR (Non-African American) 14.5 ml/min; Magnesium 1.9 mg/dl (1.7-2.4); Potassium 4.2 mmol/L (3.5-5.1)
[2021-08-24 07:35] VITALS: TEMP 98.2; O2SAT 100
[2021-08-24] MEDS ORDERED: VANCOMYCIN HCL 1,000 MG in SODIUM CHLORIDE 0.9% 250 ML IV SCH (08:00)
[2021-08-24] MEDS: PANTOprazole 40 MG TAB PO SCH (08:21)
[2021-08-24] MEDS: carvediloL 12.5 MG TAB PO SCH (08:21)
--- NOTE | 2021-08-24 08:52 | Hospitalist Progress Note ---
Date of Service August 24, 2021 Assessment & Plan (1) Osteomyelitis of finger of right hand: (2) Anemia: (3) Hypotension: (4) ESRD (end stage renal disease) on dialysis: (5) HFrEF (heart failure with reduced ejection fraction): Plan: Infected necrotic wound, right middle finger Longstanding problem Possible osteomyelitis No sepsis for now Patient was started on IV antibiotics, Zosyn and vancomycin Xray finger IMPRESSION: 1. Evidence for previous amputation of the distal third finger with soft tissue swelling and cortical irregularity of the distal tuft of the distal phalanx. The presence of osteomyelitis cannot be excluded. MRI ordered, pending Orthopedics consulted Plan by orthopedics, to do surgical debridement possible amputation as outpatient. Appropriate to hold antiplatelet Rx for now given bleeding wound right middle finger Resume if bleeding resolved and hemoglobin stable Chronic systolic heart failure (EF 25 to 30%, TTE 2021), patient euvolemic hx CAD status post stent hypertension, patient currently hypotensive hyperlipidemia on statin Rx pulmonary hypertension On admission, low BP Medical telemetry given low BP Decrease maintenance Coreg dose for now Appropriate to hold other BP meds until BP stable Currently BP normal DM1, well-controlled as of recent hemoglobin A1c of 6.01 June 2021 Basal insulin, ISS BG goal 1 10-1 40, carb count coverage ESRD on home HD Nephrology consult Re: Dialysis management Acute on chronic hyponatremia chronic anemia, hemoglobin at baseline DVT prophylaxis. SCDs Re: Bleeding right middle finger wound Full code Patient's Ms. Teressa Gerard, contact numbers [phone]. By CMS guidelines, a determination that the admission or continued stay is not medically necessary has been made by a member of the UR committee and a physician for this hospital stay, therefore a Code 44 will be completed and the Inpatient admission will be changed to outpatient. Admission and Anticipated Discharge Date Admission Date: August 23, 2021 Subjective Pt seen in follow up of finger infection Discussed w/ orthopedics, plan for surgical procedure as outpt, plan to DC today Patient states he feels well. Denies any fevers, chills, chest pain, shortness of breath, abdominal pain, nausea vomiting. Review of Systems Review of Systems: All systems reviewed & are unremarkable except as noted in Subjective Physical Exam Physical Exam: GENERAL: Alert and oriented x3. NAD, on RA. HEENT: No pallor, no icterus. Pupils equal, round and reactive to light. Oral mucosa moist. NECK: No JVD, no neck masses. HEART: S1 and S2 heard. Regular rate and rhythm. No murmur, no gallop. RESPIRATORY: Normal AP diameter. No accessory muscle use. No wheezing, no crackles. ABDOMEN: Soft, bowel sounds present, nontender, no distention. NEURO: No facial droop. Speech is clear. Obeys simple commands. Moves extremities. EXTREMITIES:trace BLE edema (improved), no erythema seen. Rt third finger with necrotic ulcerated wound with pus noted. Results & Data Results & Data ([facility]) Vital Signs (Past 12 Hours) Vital Signs Temp Pulse Pulse Pulse Resp BP BP 08/24/21 08:04 92 H 08/24/21 07:35 36.8 C 94 H 18 136/66 08/24/21 04:12 36.5 C 91 H 18 97/54 L 08/24/21 00:06 36.6 C 94 H 18 108/65 08/23/21 23:40 36.9 C 78 108/53 L 08/23/21 23:00 68 107/57 L 08/23/21 22:40 75 115/54 L 08/23/21 22:20 66 107/50 L 08/23/21 22:00 71 106/32 L 08/23/21 21:40 67 126/39 L 08/23/21 21:20 70 128/64 08/23/21 21:00 66 108/55 L Pulse Ox 08/24/21 08:04 08/24/21 07:35 100 08/24/21 04:12 95 08/24/21 00:06 95 08/23/21 23:40 08/23/21 23:00 08/23/21 22:40 08/23/21 22:20 08/23/21 22:00 08/23/21 21:40 08/23/21 21:20 08/23/21 21:00 Laboratory Results 08/24/21 08/24/21 08/24/21 Range/Units 07:31 05:27 05:27 WBC 5.15 (4.8-10.8) K/uL RBC 2.70 L (4.7-6.1) M/uL Hgb 8.6 L (14.0-18.0) g/dL Hct 26.8 L (42-52) % MCV 99.3 (80-100) fL MCH 31.9 (25-34) pg MCHC 32.1 (32-36) g/dL RDW Std Deviation 59.6 H (36.4-46.3) fL RDW Coeff of Nessa 16.6 H (11.5-14.5) % Plt Count 162 (130-400) K/uL MPV 4.0 L (7.4-10.4) fL Sodium 136 (136-145) mmol/L Potassium 4.2 (3.5-5.1) mmol/L Chloride 97 L (98-107) mmol/L Carbon Dioxide 28 (21-32) mmol/L Anion Gap 11 (3-11) BUN 20 D (6-23) mg/dl Creatinine 4.48 H D (0.6-1.4) mg/dl Est Cr Clr Drug Dosing 24.4 ml/min Est GFR ( Amer) 16.8 ml/min Est GFR (Non-Af Amer) 14.5 ml/min BUN/Creatinine Ratio 4.5 L (10-20) Glucose 177 H (70-99(Fasting)) mg/dl POC Glucose 159 H (70-99) mg/dl Calcium 8.9 (8.5-10.1) mg/dl Magnesium 1.9 (1.7-2.4) mg/dl Random Vancomycin (10-20) mcg/ml 08/24/21 08/23/21 08/23/21 Range/Units 05:27 23:59 23:57 WBC (4.8-10.8) K/uL RBC (4.7-6.1) M/uL Hgb (14.0-18.0) g/dL Hct (42-52) % MCV (80-100) fL MCH (25-34) pg MCHC (32-36) g/dL RDW Std Deviation (36.4-46.3) fL RDW Coeff of Nessa (11.5-14.5) % Plt Count (130-400) K/uL MPV (7.4-10.4) fL Sodium (136-145) mmol/L Potassium (3.5-5.1) mmol/L Chloride (98-107) mmol/L Carbon Dioxide (21-32) mmol/L Anion Gap (3-11) BUN (6-23) mg/dl Creatinine (0.6-1.4) mg/dl Est Cr Clr Drug Dosing ml/min Est GFR ( Amer) ml/min Est GFR (Non-Af Amer) ml/min BUN/Creatinine Ratio (10-20) Glucose (70-99(Fasting)) mg/dl POC Glucose 125 H 133 H (70-99) mg/dl Calcium (8.5-10.1) mg/dl Magnesium (1.7-2.4) mg/dl Random Vancomycin 14.1 (10-20) mcg/ml 08/23/21 08/23/21 08/23/21 Range/Units 23:51 16:35 11:30 WBC (4.8-10.8) K/uL RBC (4.7-6.1) M/uL Hgb (14.0-18.0) g/dL Hct (42-52) % MCV (80-100) fL MCH (25-34) pg MCHC (32-36) g/dL RDW Std Deviation (36.4-46.3) fL RDW Coeff of Nessa (11.5-14.5) % Plt Count (130-400) K/uL MPV (7.4-10.4) fL Sodium (136-145) mmol/L Potassium (3.5-5.1) mmol/L Chloride (98-107) mmol/L Carbon Dioxide (21-32) mmol/L Anion Gap (3-11) BUN (6-23) mg/dl Creatinine (0.6-1.4) mg/dl Est Cr Clr Drug Dosing ml/min Est GFR ( Amer) ml/min Est GFR (Non-Af Amer) ml/min BUN/Creatinine Ratio (10-20) Glucose (70-99(Fasting)) mg/dl POC Glucose 352 H* 170 H 105 H (70-99) mg/dl Calcium (8.5-10.1) mg/dl Magnesium (1.7-2.4) mg/dl Random Vancomycin (10-20) mcg/ml Medications Administered Current Inpatient Medications Acetaminophen (Acetaminophen 325 Mg Tab) 650 mg PO Q4H PRN PRN Reason: Pain or Fever Stop: 09/22/21 03:13 Last Admin: 08/24/21 04:48 Dose: 650 mg Documented by: Aspirin (Aspirin 81 Mg Ectab) 81 mg PO DAILY GHAZALA Stop: 09/23/21 08:59 Last Admin: 08/24/21 08:21 Dose: 81 mg Documented by: Atorvastatin Calcium (Atorvastatin 40 Mg Tab) 40 mg PO HS GHAZALA Stop: 09/22/21 20:59 Last Admin: 08/23/21 23:52 Dose: 40 mg Documented by: Carvedilol (Carvedilol 12.5 Mg Tab) 12.5 mg PO BID GHAZALA Stop: 09/22/21 20:59 Last Admin: 08/24/21 08:21 Dose: 12.5 mg Documented by: Clopidogrel Bisulfate (Clopidogrel Bisulfate 75 Mg Tab) 75 mg PO DAILY [facility] Stop: 09/23/21 08:59 Last Admin: 08/24/21 08:21 Dose: 75 mg Documented by: Dextrose (Dextrose 50% 50 Ml Syringe) 25 - 50 ml IV UD PRN; Protocol PRN Reason: Hypoglycemia Protocol Stop: 09/22/21 03:13 Glucagon (Glucagon For Inj 1 Mg Vial) 1 mg SQ UD PRN; Protocol PRN Reason: Hypoglycemia Protocol Stop: 09/22/21 03:13 Glucose (Glucose 10 Tabs/Tube) 4 - 8 tabs PO UD PRN; Protocol PRN Reason: Hypoglycemia Protocol Stop: 09/22/21 03:13 Glucose (Glucose 40% Gel 15 Gm Tube) 15 - 30 gm PO UD PRN; Protocol PRN Reason: Hypoglycemia Protocol Stop: 09/22/21 03:13 Promethazine HCl 12.5 mg/ (Sodium Chloride) 50.5 mls @ 202 mls/hr IV Q6H PRN PRN Reason: Nausea And Vomiting Stop: 09/22/21 03:13 Piperacillin Sod/Tazobactam (Sod 3.375 gm/ Dextrose) 115 mls @ 28.75 mls/hr IV Q12H GHAZALA; Protocol Stop: 08/30/21 09:59 Last Infusion: 08/24/21 04:55 Dose: Infused Documented by: Vancomycin HCl 1,000 mg/ (Sodium Chloride) 270 mls @ 200 mls/hr IV TODAY@0800 [facility] Stop: 08/24/21 09:20 Last Admin: 08/24/21 08:21 Dose: 200 mls/hr Documented by: Insulin Aspart (Insulin Aspart Per Unit) 0 units SC ACHS [facility] Stop: 09/22/21 03:13 Last Admin: 08/24/21 08:22 Dose: 1 units Documented by: Insulin Glargine (Insulin Glargine Solostar 100 Units/Ml 3 Ml Pen) 5 units SC HS [facility] Stop: 09/22/21 20:59 Last Admin: 08/24/21 00:02 Dose: Not Given Documented by: Miscellaneous (Carbohydrates For Hypoglycemia ) 15 - 30 gm PO UD PRN PRN Reason: Hypoglycemia Protocol Stop: 09/22/21 03:13 Miscellaneous Information (Piperacill/Tazobac Consult Active) 1 ea N/A UD PRN PRN Reason: Consult Stop: 09/22/21 01:35 Miscellaneous Information (Vancomycin Consult Active) 1 ea N/A UD PRN PRN Reason: Consult Stop: 09/22/21 13:18 Oxycodone HCl (Oxycodone Hcl Ir 5 Mg Tab (Immediate Release)) 5 mg PO Q4H PRN PRN Reason: Pain Stop: 09/06/21 03:13 Last Admin: 08/24/21 04:48 Dose: 5 mg Documented by: Pantoprazole Sodium (Pantoprazole 40 Mg Tab) 40 mg PO QAM [facility] Stop: 09/22/21 08:59 Last Admin: 08/24/21 08:21 Dose: 40 mg Documented by: Polyethylene Glycol (Polyethylene (Miralax) 17 Gm Pack) 17 gm PO DAILY PRN PRN Reason: Constipation Stop: 09/22/21 15:39
[2021-08-24] MEDS ORDERED: ASPIRIN 81 MG ECTAB PO SCH (09:00)
[2021-08-24] MEDS ORDERED: CLOPIDOGREL BISULFATE 75 MG TAB PO SCH (09:00)
--- NOTE | 2021-08-24 09:22 | Orthopedic Progress Note ---
Date of Service August 24, 2021 Assessment & Plan (1) Osteomyelitis of finger of right hand: Plan: Possible osteomyelitis of the tuft of the third right fingertip. I discussed the case with Dr. Read briefly last night and this morning. He feels there is likely osteomyelitis of the fingertip. He feels this is something that can be managed in the outpatient setting through our surgery center. I had a lengthy discussion with the patient this morning as well concerning treatment here versus outpatient. Patient would prefer to have this taken care of outpatient. I have also discussed the case with Dr. Arteaga this morning. She will see the patient this morning. As long as he is medically stable, we will plan for discharge to home today on Bactrim and Keflex. Patient will follow up with Dr. Read's PA, Maria Guadalupe Nevarez at 9 am tomorrow morning at the office. He will be set up for an early surgery on Sunday for irrigation debridement versus possible amputation of the fingertip. Dr. Read will follow cultures that have been done here which are showing staph species currently and will take cultures as well during the procedure. Tentatively plan for discharge to home today with follow-up with Dr. Read's team tomorrow morning. Admission and Anticipated Discharge Date Admission Date: August 23, 2021 Subjective Patient awake and alert. Sitting at the bedside. No new complaints. Having some pain in the fingertip off and on. Patient states he went down for his MRI last night however he became somewhat anxious prior to the exam. He was premedicated prior. Patient states that he became somewhat noman with him. Patient asked for a minute or 2 to acclimate however this was questionably taking too much time per the electronic security technician? The MRI was then not done last night. Physical Exam Physical Exam: No new changes to the exam. Continues with eschar at the distal tip. Results & Data ([facility]) Vital Signs (Past 12 Hours) Vital Signs Temp Pulse Pulse Pulse Resp BP BP 08/24/21 08:04 92 H 08/24/21 07:35 36.8 C 94 H 18 136/66 08/24/21 04:12 36.5 C 91 H 18 97/54 L 08/24/21 00:06 36.6 C 94 H 18 108/65 08/23/21 23:40 36.9 C 78 108/53 L 08/23/21 23:00 68 107/57 L 08/23/21 22:40 75 115/54 L 08/23/21 22:20 66 107/50 L 08/23/21 22:00 71 106/32 L 08/23/21 21:40 67 126/39 L 08/23/21 21:20 70 128/64 Pulse Ox 08/24/21 08:04 08/24/21 07:35 100 08/24/21 04:12 95 08/24/21 00:06 95 08/23/21 23:40 08/23/21 23:00 08/23/21 22:40 08/23/21 22:20 08/23/21 22:00 08/23/21 21:40 08/23/21 21:20
--- NOTE | 2021-08-24 10:21 | Communication Note ---
Date of Service: August 24, 2021 By CMS guidelines, a determination that the admission or continued stay is not medically necessary has been made by a member of the UR committee and a phy sician for this hospital stay, therefore a Code 44 will be completed and the Inpatient admission will be changed to outpatient. Avinash Laguna MD Member, Utilization Review Committee
--- NOTE | 2021-08-24 10:24 | Discharge Summary ---
Date of Service August 24, 2021 Admission HPI Per Admitting Provider History obtained from patient, family, and records. Medical history significant for chronic systolic heart failure (EF 25 to 30%, TTE 2021), CAD status post stent, hypertension, hyperlipidemia, pulmonary hypertension, DM1, ESRD on home HD, chronic hyponatremia, chronic anemia (baseline hemoglobin of 9-10), chronic right middle finger ulceration. Last confinement 2 weeks ago for symptomatic anemia No obvious source of bleed. Patient also found to have EF of 25 to 30% on 2D echo. Patient seen by cardiology during visit. Patient has had a chronic ulcerated wound on the right middle finger for about a year now. Patient seen by [facility] orthopedics outpatient April 2021. Impression was ischemic ulceration of the right middle finger associated with PVD. Outpatient RUE CT angio requested which later showed : Extensive atherosclerotic calcifications, limiting evaluation. Right upper extremity arteries appear patent to the hand. Limited evaluation of the palmar digital arteries due to dense atherosclerotic calcifications. Patient unable to follow-up with Orthopedics. Last week, patient noted swelling of the right middle finger more than usual. Some lightheadedness and fatigue. No fever, no chills. Last night patient accidentally hit his middle finger on the surface of the kitchen sink somewhat forcibly resulting in blood and purulent drainage from the ulcerated wound. Patient brought to the ER by for evaluation. SBP 90s at the ER at some point. MEDICAL HISTORY: As above. SURGICAL HISTORY: He had multiple laser surgeries for his retinopathy, dental surgery, enucleation left eye, detached retina repair, vascular procedures FAMILY HISTORY: Diabetes. Stroke. 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 Admission Exam Per Admitting Provider GENERAL: Comfortable, obese, no respiratory distress SKIN: Pallor, warm HEENT: pale palpebral conjunctivae, chronic ptosis left, moist buccal mucosa NECK : Supple, short neck, no tenderness CHEST : CTA, no tenderness HEART : RRR, no obvious murmurs ABDOMEN: Some distention, nontender EXTREMITIES : Minimal LE swelling, no LE tenderness; necrotic ulcerated wound, right middle finger with minimal tenderness with scant drainage with dried blood NEUROLOGIC : Coherent chronic ptosis left, no facial asymmetry, no other gross focality Principal Diagnosis Right middle finger infection, possible osteomyelitis DM 1 ESRD on HD Chronic anemia Discharge Exam GENERAL: Alert and oriented x3. NAD, on RA. HEENT: No pallor, no icterus. Pupils equal, round and reactive to light. Oral mucosa moist. NECK: No JVD, no neck masses. HEART: S1 and S2 heard. Regular rate and rhythm. No murmur, no gallop. RESPIRATORY: Normal AP diameter. No accessory muscle use. No wheezing, no crackles. ABDOMEN: Soft, bowel sounds present, nontender, no distention. NEURO: No facial droop. Speech is clear. Obeys simple commands. Moves extremities. EXTREMITIES:trace BLE edema (improved), no erythema seen. Rt third finger with necrotic ulcerated wound with pus noted. Discharge Data Allergies Allergy/AdvReac Type Severity Reaction Status Date / Time benzonatate Allergy Unknown told not Verified 08/23/21 01:14 to take ibuprofen Allergy Unknown told not Verified 08/23/21 01:14 to take baclofen AdvReac Severe sedation/co Verified 08/23/21 01:14 nfusion oxycodone AdvReac Intermediate Confusion Verified 08/23/21 01:14 FRED Inhibitors AdvReac Unknown Unknown Verified 08/23/21 01:14 Consultations 08/23/21 00:30 ED Decision to Admit Stat 08/23/21 01:51 Consult Orthopedic Surgery Routine 08/23/21 03:14 Consult Nephrology Routine Ordered Studies 08/24/21 02:52 MR hand RT wo con Routine Hospital Course (1) Osteomyelitis of finger of right hand: (2) Anemia: (3) Hypotension: (4) ESRD (end stage renal disease) on dialysis: (5) HFrEF (heart failure with reduced ejection fraction): Infected necrotic wound, right middle finger Longstanding problem Possible osteomyelitis No sepsis for now Patient was started on IV antibiotics, Zosyn and vancomycin Xray finger IMPRESSION: 1. Evidence for previous amputation of the distal third finger with soft tissue swelling and cortical irregularity of the distal tuft of the distal phalanx. The presence of osteomyelitis cannot be excluded. MRI ordered, pending Orthopedics consulted Plan by orthopedics, to do surgical debridement possible amputation as outpatient. Appropriate to hold antiplatelet Rx for now given bleeding wound right middle finger Resume if bleeding resolved and hemoglobin stable Chronic systolic heart failure (EF 25 to 30%, TTE 2021), patient euvolemic hx CAD status post stent hypertension, patient currently hypotensive hyperlipidemia on statin Rx pulmonary hypertension On admission, low BP Medical telemetry given low BP Decrease maintenance Coreg dose for now Appropriate to hold other BP meds until BP stable Currently BP normal DM1, well-controlled as of recent hemoglobin A1c of 6.01 June 2021 Basal insulin, ISS BG goal 1 10-1 40, carb count coverage ESRD on home HD Nephrology consult Re: Dialysis management Acute on chronic hyponatremia chronic anemia, hemoglobin at baseline DVT prophylaxis. SCDs Re: Bleeding right middle finger wound Full code Patient's Ms. Teressa Gerard, contact numbers [phone]. By CMS guidelines, a determination that the admission or continued stay is not medically necessary has been made by a member of the UR committee and a physician for this hospital stay, therefore a Code 44 will be completed and the Inpatient admission will be changed to outpatient. Total Time Total Time Spent Total Time Spent (In Minutes): 40 Discharge Plan Discharge Items Patient Disposition: Home - Self-Care Reason For Visit: LOW BP, HYPONATREMIA, INFECTED FINGER WOUND Discharge Diagnosis: Right middle finger infection, possible osteomyelitis DM 1 ESRD on HD Chronic anemia Activity: Per Instructions section Non-emergency contact: Primary Care Provider and Surgeon Call non-emergency contact if: you have any medication questions and your symptoms worsen Follow-up/Referrals: Grayson Swan MD [Primary Care Provider] - (Date & Time 08/29/2021 3:20 PM Provider Grayson Swan MD Department Family Practice [facility] ) Diet: Dialysis Renal and Heart Healthy Addtl Attending Provider Instructions: Follow-up with orthopedics, there is a plan for surgical management of your finger infection. Take antibiotics, Bactrim and Keflex as prescribed. Follow-up with your primary care physician after your surgery. Take Bactrim DS, 2 tablets in the morning before dialysis, and 1 tablet after dialysis. Take Keflex after dialysis. Monitor your blood pressure at home, recommend at this point, to decrease your carvedilol dose to 25 mg twice a day. Follow-up with your healthcare providers, as your blood pressure medications may need further adjustment. Pending Studies at Discharge: Yes Studies:: final cultx Stand-Alone Forms: My [employer], Smoking Cessation Medications and DC Order Prescriptions: New sulfamethoxazole-trimethoprim [Bactrim DS] 800-160 mg tablet 1 tab PO UD Qty: 12 RF: 0 oxycodone 5 mg Tablet 5 mg PO Q4H PRN (Reason: pain) Qty: 5 RF: 0 cephalexin 500 mg capsule 500 mg PO DAILY Qty: 4 RF: 0 Continued furosemide [Lasix] 40 mg Tablet 40 mg PO BID RF: 0 atorvastatin 40 mg Tablet 40 mg PO HS RF: 0 clopidogrel 75 mg Tablet 75 mg PO DAILY RF: 0 terazosin 2 mg Capsule 4 mg PO HS RF: 0 nitroglycerin [Nitrostat] 0.4 mg Tablet, Sublingual 0.4 mg Sublingual DIRECTED PRN (Reason: Chest Pain) RF: 0 omeprazole 20 mg Capsule,Delayed Release(Dr/Ec) 20 mg PO QAM RF: 0 insulin aspart U-100 [Novolog Flexpen U-100 Insulin] 100 unit/mL Insulin Pen 0 unit SUBCUT TID PRN (Reason: Hyperglycemia) RF: 0 aspirin 81 mg Tablet,Delayed Release (Dr/Ec) 81 mg PO DAILY RF: 0 hydralazine 100 mg tablet 100 mg PO BID PRN (Reason: ..) RF: 0 oxycodone-acetaminophen 5-325 mg tablet 1 tab PO BID PRN (Reason: Pain) RF: 0 amlodipine 5 mg tablet 5 mg PO DAILY RF: 0 Epogen Inj 0 mg INJ [id number] RF: 0 Changed carvedilol 25 mg Tablet 25 mg PO BID Qty: 0 RF: 0 Discharge Orders: Discharge Order (Routine); Ordered 08/24/21 Ordered By: Dennis Arteaga Admission Data Admit Date/Time: 08/23/21 01:48 Attending Provider: Dennis Arteaga Admit Provider: Parvez Lamas Primary Care Provider: Grayson Swan Other Providers: Silas [place] ; Ish King ; Aguila Tubbs ; Mana Mora Thomas J ; Maria Guadalupe Dawson ; Woody Cosby ; Moses Read ; Arsenio Mcclain Andrew J. ; Avery Powell ; Florentin Herrera ; Mendez Grace ; Herve Tang ; Maria Guadalupe Nevarez ; Kj Steinberg ; Dayday Rodrigez ; Alexandria Decker ; Weston Taylor ; Areli Jian ; Amor Vidal ; Dahiana Rojas ; Luis Deal ; Vikki Perez ; Jenelle Davidson ; Kenneth Lennon ; Parvez Lamas ; Randa Nicole
[2021-08-24 10:34] VITALS: BP 123/83; PULSE 82
== END 2021-08-24 11:21 | disposition home or self-care (01) ==
LOC: ED 20:14 → INTOOBSV 08-23 01:48 → SUATTDRO 08-23 01:48 → 2W 08-23 01:48

== ENCOUNTER 2021-10-21 11:34 | Inpatient (IN) ==
--- NOTE | 2021-10-21 11:44 | Emergency Department Note ---
Impression & Plan Acute hyperkalemia, Multiple fractures of ribs of left side, Fracture of lumbar spine ED Provider Note NAME: LALITA SALDANA AGE: 46 SEX: M : 1975 ARRIVES VIA: Walk-In INFORMANT: Patient, ED PROVIDER(S): Esvin Bah MD Chief Complaint: Fall, back and rib pain HPI: Patient was seen due to concern for fall and back pain. The patient states that he fell try to step out of the bathtub striking the left side of his lower back. Patient states that it is excruciating did not take anything for pain prior to arrival describes it as sharp worse with palpation. Patient states it did worsen when trying to lay back. Patient denies any chest pains or shortness of breath. Patient does receive every other day chemo dialysis at home and last received a session yesterday. Patient denies any head strike nausea vomiting or LOC. Patient does take aspirin Plavix but does not take blood thinning medications. After further discussion the patient states that he did his dialysis 2 days ago. He is due this evening ROS: See HPI for pertinent positives and negatives. A total of 10 systems were reviewed and otherwise negative. Past medical history: See below Surgical history: See below Social history: See below Physical Exam: GENERAL: Mildly uncomfortable in appearance,NAD, wearing a mask, non-toxic. EYE EXAM: Normal conjunctiva. PERRL, no anisocoria and EOM's grossly intact w/o pain. NECK: Supple, no nuchal rigidity, no adenopathy, non-tender. No signs of meningismus. LUNGS: Clear to auscultation. Normal chest wall mechanics. HEART: NSR, no MRG. ABDOMEN: Abdomen soft, non-tender, normo-active bowel sounds, no masses, no rebound or guarding. BACK: Well-healed lumbar incisional scar, no midline thoracic or lumbar pain, pain to the left flank and paraspinal area as well as the left posterior rib area. SKIN: No rashes and no bruising. UPPER EXTREMITIES: Upper extremities are grossly normal. Upper upper extremity AV fistula. LOWER EXTREMITIES: Grossly normal, no edema. No TTP or obvious deformity. NEURO EXAM: A&O x3, cranial nerves II-XII grossly intact, normal speech, moves all 4 extremities on command w/o issue. Differential diagnoses: Fracture, dislocation, contusion, intra-abdominal, pneumothorax, intrathoracic, intracranial, neurologic, compartment syndrome, rhabdomyolysis, as well as other pathologies. Course: Patient was seen and evaluated the bedside. Full history physical exam was performed. EKG interpreted by me Sinus with first-degree AV block, rate of 68, wide QRS, left axis deviation. Patient's EKG looks relatively unchanged from comparison completed August 09, 2021 patient's TWI are improved in the lateral leads from comparison. Imaging Studies: See Below Cardiac monitoring: An order was placed for continuous cardiac monitoring. The monitor shows a rate of 75 with sinus rhythm. MDM: Patient did presents status post fall and did have some posterior rib and flank discomfort. Blood work was obtained along with Noncon CTs of the chest abdomen and pelvis patient CTs did show findings consistent with posterior rib fractures. These are nondisplaced. They did notice a small pleural effusion which could be hemothorax but believe this to be less likely. Patient is not on blood thinners but is on aspirin and Plavix. Patient did receive multiple rounds of pain medication given his discomfort. The patient does have Left inferior articular process of L4 and superior articular process of L5 but otherwise no other acute fractures in the lumbar spine. Patient's blood work did show concern for elevated potassium at 7.1. This was treated medically with insulin D50 albuterol and calcium gluconate 2 g. I did speak with nephrology Dr. Davidson who did review and after further discussion repeat phone call stated that the patient could receive dialysis this evening. I did speak the on-call hospitalist Dr. Woodruff and the patient was admitted to the medicine service. The patient was taken from the emergency department to dialysis. Critical Care: I have personally spent 90 minutes of critical care time in direct management of this patient. This includes bedside care, interpretation of diagnostic studies, and testing, discussion with consultants, patient, and family members, and other require inpatient management activities. This 90 minutes is in excess of all separately billable procedures. Past Med/Surg History Medical History Acute left lumbar radiculopathy Anemia Bilateral carotid artery stenosis Monitored with Carotid Doppler q6 months. 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 Carotid artery stenosis Coronary artery disease Diabetes mellitus, insulin-dependent (IDDM or type I) DM I (diabetes mellitus, type I) Dyslipidemia ESRD (end stage renal disease) on dialysis GERD (gastroesophageal reflux disease) Gout Hypertension Hypertensive urgency Labile hypertension Orthostatic hypotension Presence of artificial eye LEFT Ulcer of finger R third digit Weakness Surgical History History of discectomy LUMBAR History of eye surgery MULTIPLE EYE SURGERIES S/T COMPLICATIONS OF DIABETES INCLUDING DETACHED RETINA, DSEAK PROCEDURES, AND ENUCLEATION OF LEFT EYE Status post cardiac catheterization Status post coronary artery stent placement 2009, NO HX OF SD. [facility]. Family History Other Cancer Diabetes Gallbladder disease Heart disease Hypertension Social History Smoking Status: Never smoker Tobacco Type: Smokeless Tobacco (Dip or Chew) Second Hand Exposure: No; Hx Alcohol Use: No Hx Substance Use: No Preferred Language: Senegalese Communication Ability: Effective Visual Impairment: Blindness [employer] Supervisor Required: No Beliefs That Will Affect Care: None marital status: Current Living Situation: Spouse current occupational status: disabled Feels Safe at Home: Yes Assistive Devices: None Allergies Allergies Allergy/AdvReac Type Severity Reaction Status Date / Time benzonatate Allergy Unknown told not Verified 08/23/21 01:14 to take ibuprofen Allergy Unknown told not Verified 08/23/21 01:14 to take baclofen AdvReac Severe sedation/co Verified 08/23/21 01:14 nfusion oxycodone AdvReac Intermediate Confusion Verified 08/23/21 01:14 FRED Inhibitors AdvReac Unknown Unknown Verified 08/23/21 01:14 Home Meds Home Medications Medication Instructions Recorded Confirmed atorvastatin 40 mg tablet 40 mg PO HS 02/13/18 10/21/21 clopidogrel 75 mg tablet 75 mg PO DAILY 02/13/18 10/21/21 furosemide 40 mg tablet (Lasix) 40 mg PO BID 02/13/18 10/21/21 insulin aspart U-100 100 unit/mL 0 unit SUBCUT TID PRN 02/13/18 08/23/21 (3 mL) subcutaneous pen (Novolog Flexpen U-100 Insulin aspart) nitroglycerin 0.4 mg sublingual 0.4 mg SUBLINGUAL DIRECTED PRN 02/13/18 tablet (Nitrostat) omeprazole 20 mg capsule,delayed 20 mg PO QAM 02/13/18 10/21/21 release terazosin 2 mg capsule 4 mg PO HS 02/13/18 10/21/21 aspirin 81 mg tablet,delayed 81 mg PO DAILY 06/10/20 10/21/21 release hydralazine 100 mg tablet 100 mg PO BID PRN 10/14/20 08/23/21 oxycodone-acetaminophen 5 mg-325 1 tab PO Q4H PRN 08/08/21 10/21/21 mg tablet Epogen Inj 0 mg INJ [id number] 08/23/21 08/23/21 amlodipine 5 mg tablet 5 mg PO DAILY 08/23/21 10/21/21 Novolin 70-30 FlexPen U-100 15 units SC TID 10/21/21 10/21/21 ciprofloxacin HCl 500 mg tablet 500 mg PO DAILY 10/21/21 10/21/21 Previous Rx's Medication Instructions Recorded carvedilol 25 mg tablet 25 mg PO BID #0 tab 08/24/21 cephalexin 500 mg capsule 500 mg PO DAILY #4 cap 08/24/21 oxycodone 5 mg tablet 5 mg PO Q4H PRN #5 tab 08/24/21 sulfamethoxazole 800 1 tab PO UD #12 tab 08/24/21 mg-trimethoprim 160 mg tablet (Bactrim DS) Results & Data (ED) Vital Signs Vital Signs - 24 hr 10/21/21 11:36 Temperature 36.5 C Temperature Source Temporal Artery Scan Pulse Rate 71 Respiratory Rate 16 Blood Pressure 153/76 H Blood Pressure Mean 101 Pulse Oximetry 98 Oxygen Delivery Method Room Air Sepsis Recent Fever Within 48 Hours No Sepsis New/Unexplained Change in Mental Status No Sepsis Action Taken by Nursing No Action Required Home Medications Current Medication List: was personally reviewed by me Laboratory Data Attestation: I reviewed the patient's lab results. Result diagrams: 10/21/21 12:39 10/21/21 14:01 Lab Results 10/21/21 10/21/21 10/21/21 Range/Units 12:39 12:39 14:01 WBC 12.12 H (4.8-10.8) K/uL RBC 3.62 L (4.7-6.1) M/uL Hgb 11.4 L (14.0-18.0) g/dL POC Hgb (14.0-18.0) g/dl Hct 33.9 L (42-52) % POC Hct (42-52) % MCV 93.6 (80-100) fL MCH 31.5 (25-34) pg MCHC 33.6 (32-36) g/dL RDW Std Deviation 54.9 H (36.4-46.3) fL RDW Coeff of Nessa 15.9 H (11.5-14.5) % Plt Count 194 (130-400) K/uL MPV 8.6 (7.4-10.4) fL Immature Gran % (Auto) 0.2 % Neut % (Auto) 76.9 % Lymph % (Auto) 11.5 % [place] % (Auto) 8.3 % Eos % (Auto) 2.7 % Baso % (Auto) 0.4 % Neut # (Auto) 9.32 H (1.4-6.5) K/uL Lymph # (Auto) 1.39 (1.2-3.4) K/uL [place] # (Auto) 1.00 H (0.11-0.59) K/uL Eos # (Auto) 0.33 (0-0.5) K/uL Baso # (Auto) 0.05 (0-0.2) K/uL Immature Gran # (Auto) 0.03 H (0.00-0.02) K/uL POC Sodium (135-144) mmol/L Sodium 133 L (136-145) mmol/L POC Potassium (3.3-5.0) mmol/L Potassium TNP 7.1 H* POC Chloride (101-112) mmol/L Chloride 94 L (98-107) mmol/L Carbon Dioxide 22 (21-32) mmol/L POC Total CO2 (24-31) mmol/L Anion Gap 17 H (3-11) POC Anion Gap (16-25) mmol/L POC BUN (7-18) mg/dl BUN 83 H (6-23) mg/dl Creatinine 9.43 H* (0.6-1.4) mg/dl POC Creatinine (0.6-1.3) mg/dl Est Cr Clr Drug Dosing Not Reportable Est GFR ( Amer) 6.8 ml/min Est GFR (Non-Af Amer) 5.9 ml/min BUN/Creatinine Ratio 8.8 L (10-20) Glucose 192 H (70-99(Fasting)) mg/dl POC Glucose (other) (70-99) mg/dl Calcium 9.1 (8.5-10.1) mg/dl POC Ioniz Calcium Dhaval (1.12-1.32) mmol/l Total Bilirubin 0.6 (0.2-1.0) mg/dl AST TNP 14 ALT 12 (7-52) U/L Alkaline Phosphatase 79 (34-104) U/L Total Protein 7.7 (6.0-8.3) gm/dl Albumin 4.2 (3.4-5.0) gm/dl Globulin 3.5 (2.5-4.0) gm/dl Albumin/Globulin Ratio 1.2 (0.9-2) 10/21/21 Range/Units 17:43 WBC (4.8-10.8) K/uL RBC (4.7-6.1) M/uL Hgb (14.0-18.0) g/dL POC Hgb 11.9 L (14.0-18.0) g/dl Hct (42-52) % POC Hct 35 L (42-52) % MCV (80-100) fL MCH (25-34) pg MCHC (32-36) g/dL RDW Std Deviation (36.4-46.3) fL RDW Coeff of Nessa (11.5-14.5) % Plt Count (130-400) K/uL MPV (7.4-10.4) fL Immature Gran % (Auto) % Neut % (Auto) % Lymph % (Auto) % [place] % (Auto) % Eos % (Auto) % Baso % (Auto) % Neut # (Auto) (1.4-6.5) K/uL Lymph # (Auto) (1.2-3.4) K/uL [place] # (Auto) (0.11-0.59) K/uL Eos # (Auto) (0-0.5) K/uL Baso # (Auto) (0-0.2) K/uL Immature Gran # (Auto) (0.00-0.02) K/uL POC Sodium 131 L (135-144) mmol/L Sodium (136-145) mmol/L POC Potassium 6.0 H (3.3-5.0) mmol/L Potassium POC Chloride 96 L (101-112) mmol/L Chloride (98-107) mmol/L Carbon Dioxide (21-32) mmol/L POC Total CO2 23 L (24-31) mmol/L Anion Gap (3-11) POC Anion Gap 19.0 (16-25) mmol/L POC BUN 87 H (7-18) mg/dl BUN (6-23) mg/dl Creatinine (0.6-1.4) mg/dl POC Creatinine 10.5 H* (0.6-1.3) mg/dl Est Cr Clr Drug Dosing Est GFR ( Amer) ml/min Est GFR (Non-Af Amer) ml/min BUN/Creatinine Ratio (10-20) Glucose (70-99(Fasting)) mg/dl POC Glucose (other) 255 H (70-99) mg/dl Calcium (8.5-10.1) mg/dl POC Ioniz Calcium Dhaval 1.11 L (1.12-1.32) mmol/l Total Bilirubin (0.2-1.0) mg/dl AST ALT (7-52) U/L Alkaline Phosphatase (34-104) U/L Total Protein (6.0-8.3) gm/dl Albumin (3.4-5.0) gm/dl Globulin (2.5-4.0) gm/dl Albumin/Globulin Ratio (0.9-2) Administered Medications Discontinued Medications Acetaminophen (Acetaminophen 500 Mg Tab) 1,000 mg PO NOW STA Stop: 10/21/21 12:23 Last Admin: 10/21/21 12:51 Dose: 1,000 mg Documented by: [id number] Albuterol (Albuterol 0.083% Nebu Soln 3 Ml Vial) 10 mg NEB NOW STA; Protocol Stop: 10/21/21 15:44 Last Admin: 10/21/21 16:06 Dose: 10 mg Documented by: [id number] Dextrose (Dextrose 50% 50 Ml Syringe) 50 ml IV NOW ONE Stop: 10/21/21 15:44 Last Admin: 10/21/21 16:06 Dose: 50 ml Documented by: [id number] Fentanyl Citrate (Fentanyl Citrate 100 Mcg/2 Ml Vial) 75 mcg IV NOW STA Stop: 10/21/21 15:29 Last Admin: 10/21/21 15:40 Dose: Not Given Documented by: [id number] Fentanyl Citrate (Fentanyl Citrate 100 Mcg/2 Ml Vial) 50 mcg IV NOW STA Stop: 10/21/21 15:30 Last Admin: 10/21/21 15:40 Dose: 50 mcg Documented by: [id number] Hydromorphone HCl (Hydromorphone Inj 0.5 Mg/0.5 Ml Syr) 0.5 mg IV NOW STA Stop: 10/21/21 13:03 Last Admin: 10/21/21 13:12 Dose: 0.5 mg Documented by: [id number] Lorazepam 1 mg/ Syringe 1 mls @ 2 mls/min IV NOW STA Stop: 10/21/21 14:07 Last Admin: 10/21/21 14:11 Dose: 2 mls/min Documented by: [id number] Calcium Gluconate () 1,000 mg in 60 mls @ 240 mls/hr IV NOW STA Stop: 10/21/21 15:57 Last Infusion: 10/21/21 16:21 Dose: 0 mls/hr Documented by: [id number] Admin: 10/21/21 16:06 Dose: 240 mls/hr Documented by: [id number] Calcium Gluconate () 1,000 mg in 60 mls @ 240 mls/hr IV NOW STA Stop: 10/21/21 15:57 Last Infusion: 10/21/21 17:30 Dose: 0 mls/hr Documented by: [id number] Admin: 10/21/21 16:30 Dose: 240 mls/hr Documented by: [id number] Insulin Human Regular (Novolin-R Insulin Per Unit Charge) 10 units IV NOW STA Stop: 10/21/21 15:44 Last Admin: 10/21/21 16:11 Dose: 10 units Documented by: [id number] Cosigned by: [id number] Lidocaine (Lidocaine 5% 1 Patch) 1 patch TD NOW STA Stop: 10/21/21 12:23 Last Admin: 10/21/21 12:47 Dose: 1 patch Documented by: [id number] Lorazepam (Lorazepam 2 Mg/1 Ml Vial) Confirm Administered Dose 1 mg .ROUTE .STK- MED ONE Stop: 10/21/21 14:12 Last Admin: 10/21/21 15:16 Dose: Not Given Documented by: [id number] Morphine Sulfate (Morphine Sulfate 4 Mg/Ml 1 Ml Carp\Vial) 4 mg IV NOW STA Stop: 10/21/21 12:23 Last Admin: 10/21/21 12:48 Dose: 4 mg Documented by: [id number] Imaging Data Radiologist's Impression: Abdomen/Pelvis CT 10/21/21 12:23 CT abd pelvis wo con, CT lumbar spine wo con CLINICAL HISTORY: fall, L lower perispinal and chest wall/flank TECHNIQUE: Helical axial images of the abdomen and pelvis were obtained. Automated dose lowering techniques and/or adjustment according to patient size were utilized for this exam. Dedicated images of the lumbar spine were obtained. This exam was performed without intravenous contrast. CT DOSE: 1340.58 mGy.cm COMPARISON: Comparison is made to CT abdomen pelvis 10/15/2020 FINDINGS: Lower chest: Bibasilar atelectasis versus scarring is seen. Biatrial enlargement is seen. Liver: Unremarkable. No focal lesions are seen. Gallbladder and biliary tree: Cholelithiasis is seen without evidence of cholecystitis. No intra- or extrahepatic biliary ductal dilation. Pancreas: Unremarkable, no focal lesions. Spleen: Calcifications are noted in the spleen compatible with prior granulomatous disease. Adrenals: Unremarkable. Kidneys and ureters: Unremarkable. Bladder: Unremarkable. Reproductive organs: Unremarkable. Bowel: Unremarkable appearance of the bowel. The appendix is normal. Lymph nodes Retroperitoneal: Subcentimeter lymph nodes are noted. Mesenteric: Unremarkable. Pelvic: External iliac nodes are seen bilaterally measuring up to 11 mm. Peritoneum: Normal. Vessels: Atherosclerotic calcifications are seen. Abdominal wall: Unremarkable. Bones: Acute fracture of the left inferior articular process of L4 and of the stewart perior articular process of L5. IMPRESSION: Acute fracture of the left inferior articular process of L4 and of the superior articular process of L5. Otherwise unremarkable. ACT 112: Negative or not required by law. Electronically signed by: Hema Matta M.D. 10/21/2021 4:[address] 10/21/21 12:23 CT OF THE CHEST WITHOUT IV CONTRAST CLINICAL HISTORY: fall, L lower perispinal and chest wall/flank COMPARISON STUDY: Chest radiograph August 23, 2021. Chest CT October 15, 2020. TECHNIQUE: Axial images of the chest were obtained without IV contrast. Images were reviewed in the axial, sagittal, and coronal planes. IV contrast was not administered for this examination. Automated exposure control was utilized for the study. A dose lowering technique was utilized adhering to the principles of ALARA. FINDINGS: Thoracic aorta is suboptimally assessed on this unenhanced exam but there is no mediastinal hematoma. Mildly enlarged mediastinal lymph nodes are similar to CT of October 15, 2020. Moderate cardiomegaly is noted. There is extensive coronary calcification. Small left pleural effusion is noted. There is no pneumothorax. Interlobular septal thickening and mild groundglass opacities within the lungs are noted. There are are acute nondisplaced fractures of the posterior left ninth through 12th ribs. There are acute nondisplaced fractures of the posterolateral left 10th and 11th ribs. No acute right-sided rib fractures are noted. No acute thoracic spine fractures identified. Abdomen and pelvis CT will be reported separately. Multiple stones within the gallbladder are noted. A IMPRESSION: 1. Acute nondisplaced fractures of the posterior left ninth through 12th ribs and acute nondisplaced fractures of the posterolateral left 10th and 11th ribs. 2. No pneumothorax. Small left pleural effusion. This could reflect a small hemothorax or simple pleural effusion. 3. Moderate cardiomegaly. Interstitial pulmonary edema. 4. Mild mediastinal lymphadenopathy, similar to CT of October 15, 2020. ACT 112: Negative or not required by law. Electronically signed by: Fabio Dominguez M.D. 10/21/2021 4:[address] 10/21/21 12:24 CT abd pelvis wo con, CT lumbar spine wo con CLINICAL HISTORY: fall, L lower perispinal and chest wall/flank TECHNIQUE: Helical axial images of the abdomen and pelvis were obtained. Automated dose lowering techniques and/or adjustment according to patient size were utilized for this exam. Dedicated images of the lumbar spine were obtained. This exam was performed without intravenous contrast. CT DOSE: 1340.58 mGy.cm COMPARISON: Comparison is made to CT abdomen pelvis 10/15/2020 FINDINGS: Lower chest: Bibasilar atelectasis versus scarring is seen. Biatrial enlargement is seen. Liver: Unremarkable. No focal lesions are seen. Gallbladder and biliary tree: Cholelithiasis is seen without evidence of cholecystitis. No intra- or extrahepatic biliary ductal dilation. Pancreas: Unremarkable, no focal lesions. Spleen: Calcifications are noted in the spleen compatible with prior granulom atous disease. Adrenals: Unremarkable. Kidneys and ureters: Unremarkable. Bladder: Unremarkable. Reproductive organs: Unremarkable. Bowel: Unremarkable appearance of the bowel. The appendix is normal. Lymph nodes Retroperitoneal: Subcentimeter lymph nodes are noted. Mesenteric: Unremarkable. Pelvic: External iliac nodes are seen bilaterally measuring up to 11 mm. Peritoneum: Normal. Vessels: Atherosclerotic calcifications are seen. Abdominal wall: Unremarkable. Bones: Acute fracture of the left inferior articular process of L4 and of the superior articular process of L5. IMPRESSION: Acute fracture of the left inferior articular process of L4 and of the superior articular process of L5. Otherwise unremarkable. ACT 112: Negative or not required by law. Electronically signed by: Hema Matta M.D. 10/21/2021 4:28 PM Discharge Plan Visit Data Chief Complaint: Back Injury/Pain Stated Complaint: BACK PAIN, FALL Discharge Problem: Acute hyperkalemia, Multiple fractures of ribs of left side, Fracture of lumbar spine Patient Disposition: Admitted As Inpatient Forms Stand Alone Forms: [facility] Prescriptions Prescriptions: No Action furosemide [Lasix] 40 mg Tablet 40 mg PO BID RF: 0 atorvastatin 40 mg Tablet 40 mg PO HS RF: 0 clopidogrel 75 mg Tablet 75 mg PO DAILY RF: 0 terazosin 2 mg Capsule 4 mg PO HS RF: 0 nitroglycerin [Nitrostat] 0.4 mg Tablet, Sublingual 0.4 mg Sublingual DIRECTED PRN (Reason: Chest Pain) RF: 0 omeprazole 20 mg Capsule,Delayed Release(Dr/Ec) 20 mg PO QAM RF: 0 insulin aspart U-100 [Novolog Flexpen U-100 Insulin] 100 unit/mL Insulin Pen 0 unit SUBCUT TID PRN (Reason: Hyperglycemia) RF: 0 aspirin 81 mg Tablet,Delayed Release (Dr/Ec) 81 mg PO DAILY RF: 0 hydralazine 100 mg tablet 100 mg PO BID PRN (Reason: ..) RF: 0 oxycodone-acetaminophen 5-325 mg tablet 1 tab PO Q4H PRN (Reason: Pain) RF: 0 amlodipine 5 mg tablet 5 mg PO DAILY RF: 0 Epogen Inj 0 mg INJ [id number] RF: 0 sulfamethoxazole-trimethoprim [Bactrim DS] 800-160 mg tablet 1 tab PO UD Qty: 12 RF: 0 carvedilol 25 mg Tablet 25 mg PO BID Qty: 0 RF: 0 oxycodone 5 mg Tablet 5 mg PO Q4H PRN (Reason: pain) Qty: 5 RF: 0 cephalexin 500 mg capsule 500 mg PO DAILY Qty: 4 RF: 0 ciprofloxacin HCl 500 mg tablet 500 mg PO DAILY RF: 0 Novolin 70-30 FlexPen U-100 15 units SC TID RF: 0 Referrals Referrals: Grayson Swan MD [Primary Care Provider] -
[2021-10-21] MEDS ORDERED: LIDOCAINE 5% 1 PATCH TD STA (12:22)
[2021-10-21] MEDS ORDERED: ACETAMINOPHEN 500 MG TAB PO STA (12:22)
[2021-10-21] MEDS ORDERED: MoRPHine SULFATE 4 MG/ML 1 ML CARP\\VIAL IV STA ×2 (12:22→18:19)
[2021-10-21 12:58] LABS: Basophils # (auto) 0.05 K/uL (0-0.2); Basophils % (auto) 0.4 %; Eosinophils # (auto) 0.33 K/uL (0-0.5); Eosinophils % (auto) 2.7 %; Hematocrit (blood only) 33.9 % (42-52); Hemoglobin 11.4 g/dL (14.0-18.0); Immature Granulocytes # (auto) 0.03 K/uL (0.00-0.02); Immature Granulocytes % (auto) 0.2 %; Lymphocytes # (auto) 1.39 K/uL (1.2-3.4); Lymphocytes % (auto) 11.5 %; Mean Corpuscular Hemoglobin 31.5 pg (25-34); Mean Corpuscular Hgb Conc 33.6 g/dL (32-36); Mean Corpuscular Volume 93.6 fL (80-100); Mean Platelet Volume 8.6 fL (7.4-10.4); Monocytes % (auto) 8.3 %; Neutrophils # (auto) 9.32 K/uL (1.4-6.5); Neutrophils % (auto) 76.9 %; Platelet Count 194 K/uL (130-400); RDW Coefficient of Variation 15.9 % (11.5-14.5); RDW Standard Deviation 54.9 fL (36.4-46.3); Red Blood Count 3.62 M/uL (4.7-6.1); White Blood Count 12.12 K/uL (4.8-10.8)
[2021-10-21] MEDS ORDERED: HYDROmorphone INJ 0.5 MG/0.5 ML SYR IV STA ×2 (13:02→23:22)
[2021-10-21 13:45] LABS: Alanine Aminotransferase 12 U/L (7-52); Albumin Globulin Ratio 1.2 (0.9-2); Albumin Level 4.2 gm/dl (3.4-5.0); Alkaline Phosphatase 79 U/L (34-104); Anion Gap 17 (3-11); BUN Creatinine Ratio 8.8 (10-20); Bilirubin,Total 0.6 mg/dl (0.2-1.0); Blood Urea Nitrogen 83 mg/dl (6-23); Calcium 9.1 mg/dl (8.5-10.1); Carbon Dioxide 22 mmol/L (21-32); Chloride 94 mmol/L (98-107); Est GFR (African American) 6.8 ml/min; Est GFR (Non-African American) 5.9 ml/min; Globulin 3.5 gm/dl (2.5-4.0); Glucose 192 mg/dl (70-99(Fasting)); Sodium 133 mmol/L (136-145); Total Protein 7.7 gm/dl (6.0-8.3)
[2021-10-21] MEDS ORDERED: LORazepam 1 MG in SYRINGE 0.5 ML IV STA (14:06)
[2021-10-21] MEDS ORDERED: LORazepam 2 MG/1 ML VIAL ONE (14:11)
[2021-10-21] MEDS ORDERED: fentaNYL citrate 100 MCG/2 ML VIAL IV STA ×2 (15:28→15:29)
[2021-10-21 15:41] LABS: Potassium 7.1 mmol/L (3.5-5.1)
[2021-10-21] MEDS ORDERED: ALBUTEROL 0.083% NEBU SOLN 3 ML VIAL NEB STA (15:43)
[2021-10-21] MEDS ORDERED: NovoLIN-R INSULIN PER UNIT CHARGE IV STA (15:43)
[2021-10-21] MEDS ORDERED: CALCIUM GLUCONATE 1,000 MG/60 ML BAG IV STA ×2 (15:43)
[2021-10-21] MEDS ORDERED: DEXTROSE 50% 50 ML SYRINGE IV ONE (15:43)
--- NOTE | 2021-10-21 16:11 | CT Scan Report ---
CT OF THE CHEST WITHOUT IV CONTRAST CLINICAL HISTORY: fall, L lower perispinal and chest wall/flank COMPARISON STUDY: Chest radiograph August 23, 2021. Chest CT October 15, 2020. TECHNIQUE: Axial images of the chest were obtained without IV contrast. Images were reviewed in the axial, sagittal, and coronal planes. IV contrast was not administered for this examination. Automat ed exposure control was utilized for the study. A dose lowering technique was utilized adhering to t he principles of ALARA. FINDINGS: Thoracic aorta is suboptimally assessed on this unenhanced exam but there is no mediastina l hematoma. Mildly enlarged mediastinal lymph nodes are similar to CT of October 15, 2020. Moderate card iomegaly is noted. There is extensive coronary calcification. Small left pleural effusion is noted. T here is no pneumothorax. Interlobular septal thickening and mild groundglass opacities within the jaime gs are noted. There are are acute nondisplaced fractures of the posterior left ninth through 12th rib s. There are acute nondisplaced fractures of the posterolateral left 10th and 11th ribs. No acute rig ht-sided rib fractures are noted. No acute thoracic spine fractures identified. Abdomen and pelvis CT will be reported separately. Multiple stones within the gallbladder are noted. A IMPRESSION: 1. Acute nondisplaced fractures of the posterior left ninth through 12th ribs and acute nondisplaced fractures of the posterolateral left 10th and 11th ribs. 2. No pneumothorax. Small left pleural effusion. This could reflect a small hemothorax or simple pleu ral effusion. 3. Moderate cardiomegaly. Interstitial pulmonary edema. 4. Mild mediastinal lymphadenopathy, similar to CT of October 15, 2020. ACT 112: Negative or not required by law. Electronically signed by: Fabio Dominguez M.D. 10/21/2021 4:10 PM
--- NOTE | 2021-10-21 16:29 | CT Scan Report ---
CT abd pelvis wo con, CT lumbar spine wo con CLINICAL HISTORY: fall, L lower perispinal and chest wall/flank TECHNIQUE: Helical axial images of the abdomen and pelvis were obtained. Automated dose lowering tech niques and/or adjustment according to patient size were utilized for this exam. Dedicated images of t he lumbar spine were obtained. This exam was performed without intravenous contrast. CT DOSE: 1340.58 mGy.cm COMPARISON: Comparison is made to CT abdomen pelvis 10/15/2020 FINDINGS: Lower chest: Bibasilar atelectasis versus scarring is seen. Biatrial enlargement is seen. Liver: Unremarkable. No focal lesions are seen. Gallbladder and biliary tree: Cholelithiasis is seen without evidence of cholecystitis. No intra- or extrahepatic biliary ductal dilation. Pancreas: Unremarkable, no focal lesions. Spleen: Calcifications are noted in the spleen compatible with prior granulomatous disease. Adrenals: Unremarkable. Kidneys and ureters: Unremarkable. Bladder: Unremarkable. Reproductive organs: Unremarkable. Bowel: Unremarkable appearance of the bowel. The appendix is normal. Lymph nodes Retroperitoneal: Subcentimeter lymph nodes are noted. Mesenteric: Unremarkable. Pelvic: External iliac nodes are seen bilaterally measuring up to 11 mm. Peritoneum: Normal. Vessels: Atherosclerotic calcifications are seen. Abdominal wall: Unremarkable. Bones: Acute fracture of the left inferior articular process of L4 and of the superior articular proc ess of L5. IMPRESSION: Acute fracture of the left inferior articular process of L4 and of the superior articular process of L5. Otherwise unremarkable. ACT 112: Negative or not required by law. Electronically signed by: Hema Matta M.D. 10/21/2021 4:28 PM
[2021-10-21 18:07] LABS: iSTAT Creatinine 10.5 mg/dl (0.6-1.3); iSTAT Hemoglobin 11.9 g/dl (14.0-18.0); iSTAT Ionized Calcium 1.11 mmol/l (1.12-1.32)
[2021-10-21] MEDS ORDERED: PANTOprazole 40 MG TAB ONE (18:34)
--- NOTE | 2021-10-21 19:23 | History & Physical Report ---
Date of Service October 21, 2021 Assessment & Plan (1) Multiple fractures of ribs of left side: Plan: 46-year-old male with history of diabetes type 1, end-stage renal disease on hemodialysis, CHF, chronic, systolic 25% ejection fraction, hypertension, Other problems noted below presenting with back pain after sustaining a fall. Status post mechanical fall Left rib fractures posterior 9-12 ribs, posterior lateral 10th and 11th rib Left vertebral articular process fracture L4 and L5 -Continue usual Percocet as needed Dilaudid IV 0.5 mg every 4-6 hours as needed Orthopedic spine consult -Incentive spirometry Pain control -PT and OT evaluation Small left pleural effusion: Hemothorax versus simple pleural effusion -Repeat chest x-ray tomorrow morning -Monitor hemoglobin Hyperkalemia End-stage renal disease on hemodialysis -For HD tonight -Manager Marketing Sales consulted Diabetes mellitus type 1 -Uses Novolin 70/30 15 units 3 times a day at home -Insulin sliding scale order set placed -We will consult to pharmacy glycemic control Chronic systolic congestive heart failure, ejection fraction 25% -Appears to be euvolemic -Continue Lasix, Coreg Hold aspirin and Plavix until hemothorax completely ruled out Hypotension -Continue amlodipine DVT prophylaxis SCDs, early ambulation plan of care discussed with patient in detail and at length all questions answered He is understanding, agreeable, comfortable with the plan of care (2) Fracture of lumbar spine: (3) Acute hyperkalemia: History of Present Illness Chief Complaint: Back pain status post fall Primary Care Provider: Grayson Swan MD 46-year-old male with history of diabetes type 1, end-stage renal disease on hemodialysis, CHF, chronic, systolic 25% ejection fraction, hypertension, Other problems noted below presenting with back pain after sustaining a fall. Patient was in his usual state of health until this afternoon, when patient, after getting out of the bathtub, slipped on the bathroom rug and fell backwards Hitting his back on the toilet seat. Patient denies loss of consciousness, head trauma. He experienced severe pain on the left posterior rib region after the fall, prompting consult to the ER. At the ER, patient received hemodynamically stable. CT imaging revealed left rib fractures posterior 9-12 ribs, posterior lateral 10-11 ribs as well as Left articular process fracture of L4 and L5. Patient was also found to be hyperkalemic at 7.1. He is due for hemodialysis today. On exam, patient seen sitting up in bed, hemodialysis in progress. Reports relief of left posterior rib pain after receiving analgesics at the ER. No active shortness of breath, chest pain, palpitations, dizziness, headache, dizziness, neck pain, abdominal pain, nausea or vomiting. No other symptoms Allergies Allergy/AdvReac Type Severity Reaction Status Date / Time benzonatate Allergy Unknown told not Verified 08/23/21 01:14 to take ibuprofen Allergy Unknown told not Verified 08/23/21 01:14 to take baclofen AdvReac Severe sedation/co Verified 08/23/21 01:14 nfusion oxycodone AdvReac Intermediate Confusion Verified 08/23/21 01:14 FRED Inhibitors AdvReac Unknown Unknown Verified 08/23/21 01:14 Home Medications Medication Instructions Recorded Confirmed Type atorvastatin 40 mg tablet 40 mg PO HS 02/13/18 10/21/21 History clopidogrel 75 mg tablet 75 mg PO DAILY 02/13/18 10/21/21 History furosemide 40 mg tablet (Lasix) 40 mg PO BID 02/13/18 10/21/21 History insulin aspart U-100 100 unit/mL 0 unit SUBCUT TID PRN 02/13/18 08/23/21 History (3 mL) subcutaneous pen (Novolog Flexpen U-100 Insulin aspart) nitroglycerin 0.4 mg sublingual 0.4 mg SUBLINGUAL DIRECTED PRN 02/13/18 08/23/21 History tablet (Nitrostat) omeprazole 20 mg capsule,delayed 20 mg PO QAM 02/13/18 10/21/21 History release terazosin 2 mg capsule 4 mg PO HS 02/13/18 10/21/21 History aspirin 81 mg tablet,delayed 81 mg PO DAILY 06/10/20 10/21/21 History release hydralazine 100 mg tablet 100 mg PO BID PRN 10/14/20 08/23/21 History oxycodone-acetaminophen 5 mg-325 1 tab PO Q4H PRN 08/08/21 10/21/21 History mg tablet Epogen Inj 0 mg INJ [id number] 08/23/21 08/23/21 History amlodipine 5 mg tablet 5 mg PO DAILY 08/23/21 10/21/21 History carvedilol 25 mg tablet 25 mg PO BID #0 tab 08/24/21 10/21/21 Rx cephalexin 500 mg capsule 500 mg PO DAILY #4 cap 08/24/21 Rx oxycodone 5 mg tablet 5 mg PO Q4H PRN #5 tab 08/24/21 Rx sulfamethoxazole 800 1 tab PO UD #12 tab 08/24/21 Rx mg-trimethoprim 160 mg tablet (Bactrim DS) Novolin 70-30 FlexPen U-100 15 units SC TID 10/21/21 10/21/21 History ciprofloxacin HCl 500 mg tablet 500 mg PO DAILY 10/21/21 10/21/21 History Past Med/Surg History Medical History Acute left lumbar radiculopathy Anemia Bilateral carotid artery stenosis Monitored with Carotid Doppler q6 months. 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 Carotid artery stenosis Coronary artery disease Diabetes mellitus, insulin-dependent (IDDM or type I) DM I (diabetes mellitus, type I) Dyslipidemia ESRD (end stage renal disease) on dialysis GERD (gastroesophageal reflux disease) Gout Hypertension Hypertensive urgency Labile hypertension Orthostatic hypotension Presence of artificial eye LEFT Ulcer of finger R third digit Weakness Surgical History History of discectomy LUMBAR History of eye surgery MULTIPLE EYE SURGERIES S/T COMPLICATIONS OF DIABETES INCLUDING DETACHED RETINA, DSEAK PROCEDURES, AND ENUCLEATION OF LEFT EYE Status post cardiac catheterization Status post coronary artery stent placement 2009, NO HX OF [place] [facility]. Family History Other Cancer Diabetes Gallbladder disease Heart disease Hypertension Social History Smoking Status: Never smoker Tobacco Type: Smokeless Tobacco (Dip or Chew) Second Hand Exposure: No; Hx Alcohol Use: No Hx Substance Use: No Preferred Language: Guinean Communication Ability: Effective Visual Impairment: Blindness Curtain Cutter Hand Required: No Beliefs That Will Affect Care: None marital status: Current Living Situation: Spouse current occupational status: disabled Feels Safe at Home: Yes Assistive Devices: None Review of Systems Review of Systems: all noted and negative except for above Physical Exam Physical Exam: General- oriented x 3, not in distress, speaks in sentences with no effort or accessory muscle use Head- atraumatic Eyes- PERRL, EOMI, anicteric ENT- oropharynx clear Neck- supple, no JVD, no adenopathy, no thyromegaly; carotids +2/2, no bruits appreciated Lungs- clear to auscultation bilaterally, no rales/wheezes Positive tenderness posterior lateral lower rib region, small abrasion also noted Heart- normal rate, regular rhythm; no murmur, no gallop, no rub appreciated Abdomen- normal bowel sounds, nondistended, soft, nontender, no masses or hepatosplenomegaly Extremities-mild pretibial edema, no calf tenderness; peripheral pulses intact Neuro- alert, oriented x 3; CN 2-12 grossly intact; motor 5/5 bilaterally;sensation 100% on all extremities; no other gross focal neurologic deficits Skin- warm & dry Results & Data Results & Data ([facility]) Vital Signs (Past 12 Hours) Vital Signs Temp Pulse Resp BP Pulse Ox 10/21/21 11:36 36.5 C 71 16 153/76 H 98 Code Status & VTE Plan VTE Prophylaxis Plan VTE Prophylaxis will be ordered: Yes (1) Multiple fractures of ribs of left side Encounter type: initial encounter Fracture type: closed Qualified Code(s): S22.42XA - Multiple fractures of ribs, left side, initial encounter for closed fracture (2) Fracture of lumbar spine Encounter type: initial encounter Fracture morphology: other fracture Fracture type: closed Lumbar vertebra fracture level: L4 Qualified Code(s): S32.048A - Other fracture of fourth lumbar vertebra, initial encounter for closed fracture
[2021-10-21] MEDS ORDERED: PHARMACY GLYCEMIC MGMT CONSULT PRN (21:24)
[2021-10-21] MEDS ORDERED: GLUCOSE 40% GEL 15 GM TUBE PO PRN (21:24)
[2021-10-21] MEDS ORDERED: HYDROmorphone INJ 0.5 MG/0.5 ML SYR IV PRN (21:24)
[2021-10-21] MEDS ORDERED: oxyCODONE/ACETAMINOPHEN 5mg/325mg TAB PO PRN (21:24)
[2021-10-21] MEDS ORDERED: GLUCOSE 10 TABS/TUBE PO PRN (21:24)
[2021-10-21] MEDS ORDERED: DEXTROSE 50% 50 ML SYRINGE IV PRN (21:24)
[2021-10-21] MEDS ORDERED: CARBOHYDRATES FOR HYPOGLYCEMIA PO PRN (21:24)
[2021-10-21] MEDS ORDERED: GLUCAGON FOR INJ 1 MG VIAL SQ PRN (21:24)
[2021-10-21] MEDS: INSULIN ASPART PER UNIT SC SCH (22:52)
[2021-10-21] MEDS: carvediloL 25 MG TAB PO SCH (23:14)
[2021-10-21] MEDS: ATORVASTATIN 40 MG TAB PO SCH (23:14)
[2021-10-21] MEDS: TERAZOSIN HCL 1 MG CAP PO SCH (23:14)
[2021-10-21] MEDS: FUROSEMIDE 40 MG TAB PO SCH (23:14)
[2021-10-22] MEDS: INSULIN ASPART PER UNIT SC SCH ×7 (00:54→20:38)
[2021-10-22] MEDS: HYDROmorphone INJ 0.5 MG/0.5 ML SYR IV PRN ×4 (02:53→21:57)
[2021-10-22] MEDS ORDERED: INSULIN ISOPHANE SC SCH (07:30)
[2021-10-22] MEDS ORDERED: INSULIN REGULAR SC SCH (07:30)
[2021-10-22] MEDS: FUROSEMIDE 40 MG TAB PO SCH ×2 (07:45→17:08)
[2021-10-22] MEDS: PANTOprazole 40 MG TAB PO SCH (07:45)
[2021-10-22] MEDS: CIPROFLOXACIN 500 MG TAB PO SCH (07:45)
[2021-10-22] MEDS: oxyCODONE HCL IR 5 MG TAB (IMMEDIATE RELEASE) PO PRN ×3 (07:45→20:45)
[2021-10-22] MEDS: amLODIPine BESYLATE 5 MG TAB PO SCH (07:46)
[2021-10-22] MEDS: LIDOCAINE 5% 1 PATCH TD SCH (07:46)
[2021-10-22] MEDS: carvediloL 25 MG TAB PO SCH ×2 (07:46→20:39)
--- NOTE | 2021-10-22 07:47 | XRay Report ---
XR chest 1V portable HISTORY: 46 years-old Male l pleural effusion, r/o hemothorax follow-up study in a patient with pleu ral effusion and cardiomegaly COMPARISON: Chest CT 10/21/2021 TECHNIQUE: Portable AP view of the chest FINDINGS: The cardiac silhouette is moderately enlarged. Probable trace pleural effusions. Pulmonary vascular c ongestion without pneumothorax or overt pulmonary edema. Mild subsegmental left basilar opacities. [place] left-sided rib fractures are not visualized by radiography. IMPRESSION: 1. Cardiomegaly with pulmonary vascular congestion. 2. Probable trace pleural effusions. 3. Mild left basilar opacities favor atelectasis. 4. Acute left-sided rib fractures are not visualized by radiography. No pneumothorax identified. ACT 112: Negative or not required by law. The above report was generated using voice recognition software. It may contain grammatical, syntax o r spelling errors. Electronically signed by: Amor Scott M.D. 10/22/2021 7:45 AM
[2021-10-22] MEDS ORDERED: INSULIN HUMAN NPH SC SCH ×2 (08:00→17:00)
[2021-10-22 08:50] LABS: Basophils # (auto) 0.05 K/uL (0-0.2); Basophils % (auto) 0.6 %; Eosinophils % (auto) 2.2 %; Hemoglobin 11.4 g/dL (14.0-18.0); Immature Granulocytes # (auto) 0.02 K/uL (0.00-0.02); Immature Granulocytes % (auto) 0.2 %; Lymphocytes # (auto) 1.64 K/uL (1.2-3.4); Lymphocytes % (auto) 18.4 %; Mean Corpuscular Hemoglobin 30.5 pg (25-34); Mean Corpuscular Hgb Conc 32.6 g/dL (32-36); Mean Corpuscular Volume 93.6 fL (80-100); Mean Platelet Volume 9.1 fL (7.4-10.4); Monocytes % (auto) 7.9 %; Neutrophils % (auto) 70.7 %; Platelet Count 201 K/uL (130-400); RDW Coefficient of Variation 16.3 % (11.5-14.5); RDW Standard Deviation 56.2 fL (36.4-46.3); Red Blood Count 3.74 M/uL (4.7-6.1); White Blood Count 8.91 K/uL (4.8-10.8)
[2021-10-22 09:02] LABS: BUN Creatinine Ratio 8.5 (10-20); Calcium 9.1 mg/dl (8.5-10.1); Creatinine Clr Calc Pharmacy 13.3 ml/min; Est GFR (African American) 8.3 ml/min; Est GFR (Non-African American) 7.1 ml/min; Potassium 5.1 mmol/L (3.5-5.1)
--- NOTE | 2021-10-22 15:06 | Pharmacy Report ---
Pharmacy Glycemic Short Note 2 - Date of Service October 22, 2021 - Glycemic Short BSG Results (Last 24 hours): 10/21/21 10/21/21 10/22/21 17:43 21:34 00:53 Glucose POC Glucose 175 H 149 H POC Glucose (other) 255 H 10/22/21 10/22/21 10/22/21 03:57 07:22 07:39 Glucose 123 H POC Glucose 142 H 119 H POC Glucose (other) 10/22/21 11:28 Glucose POC Glucose 137 H POC Glucose (other) OUTPATIENT ANTIDIABETIC REGIMEN: * Insulin 70/30 15 units TID with meals, novolog sliding scale ASSESSMENT: * Georgi is a 46 yo type 1 diabetic who presented with back pain after a fall and was found to have multiple rib fractures. PMH significant for end-stage renal disease on hemodialysis, CHF, and hypertension. * Upon consultation, patient was ordered NPH + novolog ACHS. Patient has refused all insulin doses thus far today. Despite this, glycemic control remains adequate. Discussed non compliance to ordered regimen with provider. Provider agrees to discuss with Georgi. * If patient continues to refuse current orders, will consider resuming home regimen at reduced doses. PLAN FOR INPATIENT GLYCEMIC CONTROL: * Hold outpatient oral diabetes medications * Basal insulin * NPH 15 units SQ with brakfast * NPH 10 units SQ with dinner * Bolus insulin * NovoLog per scale ACHS or Q6hrs while NPO * Goal Range: Low 110 mg/dL - High 140 mg/dL * Correction Factor: 25 mg/dL/unit * Nutritional / Prandial insulin per carb ratio of 1 unit per 10 grams CHO consumed
--- NOTE | 2021-10-22 16:18 | Nephrology Consultation ---
Date of Consultation October 22, 2021 Assessment & Plan (1) Acute hyperkalemia: Due to ESRD. admission K was 7. He was dialysed emergently on admission. K is 5.1 today. Low k diet. Daily BMP. (2) Multiple fractures of ribs of left side: Pain control per primary team. he will need prn pain meds for HD (3) ESRD (end stage renal disease) on dialysis: Patient on home hemo 4x/week. k was 7 on admission. K is better. No need for HD today. -Will dialyze him on Sunday, Sun/Sunday schedule. History of Present Illness Reason for Consultation: ESRD, hyperkalemia Requesting Physician: Christos Woodruff MD Attending Physician: Christos Woodruff MD History of Present Illness 46-year-old male with history of diabetes type 1, end-stage renal disease on home hemodialysis 4 times a week, CHF 25% ejection fraction, hypertension and CAD who was admitted after sustaining a fall. Patient slipped on the bathroom rug while getting out of shower and fell backwards hitting his back on the toilet seat. Patient denies loss of consciousness, head trauma. CT imaging revealed left rib fractures posterior 9-12 ribs, posterior lateral 10-11 ribs as well as Left articular process fracture of L4 and L5. Patient was also found to be hyperkalemic at 7.1. He had emergent HD last night. Main complaint today is chest pain from rib fractures. No SOB. No leg swelling. Allergies Allergy/AdvReac Type Severity Reaction Status Date / Time benzonatate Allergy Unknown told not Verified 08/23/21 01:14 to take ibuprofen Allergy Unknown told not Verified 08/23/21 01:14 to take baclofen AdvReac Severe sedation/co Verified 08/23/21 01:14 nfusion oxycodone AdvReac Intermediate Confusion Verified 08/23/21 01:14 FRED Inhibitors AdvReac Unknown Unknown Verified 08/23/21 01:14 Home Medications Medication Instructions Recorded Confirmed Type atorvastatin 40 mg tablet 40 mg PO HS 02/13/18 10/21/21 History clopidogrel 75 mg tablet 75 mg PO DAILY 02/13/18 10/21/21 History furosemide 40 mg tablet (Lasix) 40 mg PO BID 02/13/18 10/21/21 History insulin aspart U-100 100 unit/mL 0 unit SUBCUT TID PRN 02/13/18 08/23/21 History (3 mL) subcutaneous pen (Novolog Flexpen U-100 Insulin aspart) nitroglycerin 0.4 mg sublingual 0.4 mg SUBLINGUAL DIRECTED PRN 02/13/18 08/23/21 History tablet (Nitrostat) omeprazole 20 mg capsule,delayed 20 mg PO QAM 02/13/18 10/21/21 History release terazosin 2 mg capsule 4 mg PO HS 02/13/18 10/21/21 History aspirin 81 mg tablet,delayed 81 mg PO DAILY 06/10/20 10/21/21 History release hydralazine 100 mg tablet 100 mg PO BID PRN 10/14/20 08/23/21 History oxycodone-acetaminophen 5 mg-325 1 tab PO Q4H PRN 08/08/21 10/21/21 History mg tablet Epogen Inj 0 mg INJ 4XWK 08/23/21 08/23/21 History amlodipine 5 mg tablet 5 mg PO DAILY 08/23/21 10/21/21 History carvedilol 25 mg tablet 25 mg PO BID #0 tab 08/24/21 10/21/21 Rx cephalexin 500 mg capsule 500 mg PO DAILY #4 cap 08/24/21 Rx oxycodone 5 mg tablet 5 mg PO Q4H PRN #5 tab 08/24/21 Rx sulfamethoxazole 800 1 tab PO UD #12 tab 08/24/21 Rx mg-trimethoprim 160 mg tablet (Bactrim DS) Novolin 70-30 FlexPen U-100 15 units SC TID 10/21/21 10/21/21 History ciprofloxacin HCl 500 mg tablet 500 mg PO DAILY 10/21/21 10/21/21 History Patient History Medical History Acute left lumbar radiculopathy Anemia Bilateral carotid artery stenosis Monitored with Carotid Doppler q6 months. 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 Carotid artery stenosis Coronary artery disease Diabetes mellitus, insulin-dependent (IDDM or type I) DM I (diabetes mellitus, type I) Dyslipidemia ESRD (end stage renal disease) on dialysis GERD (gastroesophageal reflux disease) Gout Hypertension Hypertensive urgency Labile hypertension Orthostatic hypotension Presence of artificial eye LEFT Ulcer of finger R third digit Weakness Surgical History History of discectomy LUMBAR History of eye surgery MULTIPLE EYE SURGERIES S/T COMPLICATIONS OF DIABETES INCLUDING DETACHED RETINA, DSEAK PROCEDURES, AND ENUCLEATION OF LEFT EYE Status post cardiac catheterization Status post coronary artery stent placement 2009, NO HX OF [place]. Family History Other Cancer Diabetes Gallbladder disease Heart disease Hypertension Social History Smoking Status: Never smoker Tobacco Type: Smokeless Tobacco (Dip or Chew) Second Hand Exposure: No; Hx Alcohol Use: No Hx Substance Use: No Preferred Language: Algerian Communication Ability: Effective Visual Impairment: Blindness Binding Folder Machine Required: No Beliefs That Will Affect Care: None marital status: Current Living Situation: Spouse current occupational status: disabled Feels Safe at Home: Yes Assistive Devices: None Review of Systems Review of Systems: All other systems were reviewed and negative except as noted in HPI Physical Exam Physical Exam: General exam: Appears comfortable, no acute distress HEENT: Pupils are equal and reactive to light Neck: No JVD, neck is supple trachea is midline Respiratory system: tenderness on chest wall. Clear breath sounds bilaterally. Gastrointestinal: Abdomen is soft, non distended, non tender, bowel sounds are present CVS: Regular rate and rhythm. No murmurs, rubs or gallops Musculoskeletal: No joint or muscle tenderness Extremities: Non tender, no edema, peripheral pulses are present Neuro: Oriented, no tremors, no focal neurological deficits Skin: No rashes Results & Data ([facility]) Vital Signs (Past 12 Hours) Vital Signs Temp Pulse Pulse Resp BP Pulse Ox 10/22/21 15:58 36.8 C 70 20 111/91 96 10/22/21 14:53 72 10/22/21 10:33 36.5 C 74 18 170/71 H 93 10/22/21 07:32 71 10/22/21 07:26 36.4 C L 74 18 152/82 H 91 Laboratory Results 10/22/21 07:22 10/22/21 07:22 WBC 8.91 RBC 3.74 L MCV 93.6 MCH 30.5 MCHC 32.6 RDW Std Deviation 56.2 H RDW Coeff of Nessa 16.3 H Plt Count 201 MPV 9.1 (1) Multiple fractures of ribs of left side Encounter type: initial encounter Fracture type: closed Qualified Code(s): S22.42XA - Multiple fractures of ribs, left side, initial encounter for closed fracture
[2021-10-22] MEDS: POLYETHYLENE (MIRALAX) 17 GM PACK PO SCH (17:08)
--- NOTE | 2021-10-22 19:50 | Hospitalist Progress Note ---
Date of Service October 22, 2021 Assessment & Plan (1) Multiple fractures of ribs of left side: Plan: 46-year-old male with history of diabetes type 1, end-stage renal disease on hemodialysis, CHF, chronic, systolic 25% ejection fraction, hypertension, Other problems noted below presenting with back pain after sustaining a fall. Status post mechanical fall Left rib fractures posterior 9-12 ribs, posterior lateral 10th and 11th rib Left vertebral articular process fracture L4 and L5 -Continue usual Percocet as needed Dilaudid IV 0.5 mg every 4-6 hours as needed Orthopedic spine consult -Incentive spirometry Pain control -PT and OT evaluation 10/22 Repeat chest x-ray: No signs of pneumothorax or hemothorax Continue pain control with as needed Dilaudid, Percocet Encouraged to use incentive spirometry Denies lower back pain Discussed with [facility] regarding lumbar articular process fractures Small left pleural effusion: Hemothorax versus simple pleural effusion -Repeat chest x-ray no hemothorax, pneumothorax Hemoglobin stable Hyperkalemia End-stage renal disease on hemodialysis -Resolved with HD -Certified Alcohol And Drug Counselor consulted Diabetes mellitus type 1 -Uses Novolin 70/30 15 units 3 times a day at home -Insulin sliding scale order set placed -We will consult to pharmacy glycemic control: Currently on NPH and NovoLog Chronic systolic congestive heart failure, ejection fraction 25% -Appears to be euvolemic -Continue Lasix, Coreg Resume aspirin and Plavix Hypotension -Continue amlodipine DVT prophylaxis SCDs, early ambulation plan of care discussed with patient in detail and at length all questions answered He is understanding, agreeable, comfortable with the plan of care (2) Fracture of lumbar spine: (3) Acute hyperkalemia: Admission and Anticipated Discharge Date Admission Date: October 21, 2021 Subjective Follow-up for left posterior rib fractures, L4-L5 articular process fractures, status post mechanical fall, hyperkalemia, ESRD etc. Seen walking around the room not in distress States he still has significant left posterior rib pain No shortness of breath, anterior chest pain, headache, neck pain, or any other pain in his body No fevers or chills, cough No other symptoms Review of Systems Review of Systems: all noted and negative except for above Physical Exam Physical Exam: General- oriented x 3, not in distress, speaks in sentences with no effort or accessory muscle use Eyes- anicteric Neck- no JVD Lungs- clear breath sounds bilaterally, no rales/wheezes Positive tenderness left lower posterior rib region Heart- normal rate, regular rhythm; no murmurs Abdomen- normal bowel sounds, nondistended, soft, nontender Extremities- no pretibial edema, no calf tenderness Neuro- alert, oriented x 3; no gross focal neurologic deficits Skin- warm & dry Results & Data Results & Data ([facility]) Vital Signs (Past 12 Hours) Vital Signs Temp Pulse Pulse Resp BP Pulse Ox 10/22/21 19:42 36.3 C L 67 18 103/40 L 10/22/21 15:58 36.8 C 70 20 111/91 96 10/22/21 14:53 72 10/22/21 10:33 36.5 C 74 18 170/71 H 93 all noted and reviewed including below (1) Multiple fractures of ribs of left side Encounter type: initial encounter Fracture type: closed Qualified Code(s): S22.42XA - Multiple fractures of ribs, left side, initial encounter for closed fracture (2) Fracture of lumbar spine Encounter type: initial encounter Fracture morphology: other fracture Fracture type: closed Lumbar vertebra fracture level: L4 Qualified Code(s): S32.048A - Other fracture of fourth lumbar vertebra, initial encounter for closed fracture
[2021-10-22] MEDS: ATORVASTATIN 40 MG TAB PO SCH (20:38)
[2021-10-22] MEDS: TERAZOSIN HCL 1 MG CAP PO SCH (20:39)
[2021-10-23] MEDS: HYDROmorphone INJ 0.5 MG/0.5 ML SYR IV PRN ×4 (03:30→16:49)
[2021-10-23] MEDS ORDERED: INSULIN HUMAN NPH SC SCH (08:00)
[2021-10-23] MEDS: INSULIN ASPART PER UNIT SC SCH ×4 (08:17→21:10)
[2021-10-23] MEDS: amLODIPine BESYLATE 5 MG TAB PO SCH (08:21)
[2021-10-23] MEDS: PANTOprazole 40 MG TAB PO SCH (08:21)
[2021-10-23] MEDS: carvediloL 25 MG TAB PO SCH ×2 (08:21→21:14)
[2021-10-23] MEDS: FUROSEMIDE 40 MG TAB PO SCH ×2 (08:21→17:55)
[2021-10-23] MEDS: CIPROFLOXACIN 500 MG TAB PO SCH (08:22)
[2021-10-23] MEDS: LIDOCAINE 5% 1 PATCH TD SCH (08:22)
[2021-10-23] MEDS: POLYETHYLENE (MIRALAX) 17 GM PACK PO SCH (08:23)
[2021-10-23] MEDS: oxyCODONE HCL IR 5 MG TAB (IMMEDIATE RELEASE) PO PRN ×2 (10:54→15:26)
[2021-10-23] MEDS ORDERED: traMADol HCL 50 MG TABLET PO PRN (13:30)
[2021-10-23] MEDS: ACETAMINOPHEN 325 MG TAB PO SCH ×2 (15:18→19:45)
[2021-10-23] MEDS: predniSONE 20 MG TAB PO SCH (15:18)
--- NOTE | 2021-10-23 16:46 | Hospitalist Progress Note ---
Date of Service October 23, 2021 Assessment & Plan (1) Multiple fractures of ribs of left side: Plan: (1) Multiple fractures of ribs of left side: Plan: 46-year-old male with history of diabetes type 1, end-stage renal disease on hemodialysis, CHF, chronic, systolic 25% ejection fraction, hypertension, Other problems noted below presenting with back pain after sustaining a fall. Status post mechanical fall Left rib fractures posterior 9-12 ribs, posterior lateral 10th and 11th rib Left vertebral articular process fracture L4 and L5 -Continue usual Percocet as needed Dilaudid IV 0.5 mg every 4-6 hours as needed Orthopedic spine consult -Incentive spirometry Pain control -PT and OT evaluation 10/23 Repeat chest x-ray: No signs of pneumothorax or hemothorax Pain increased today Per discussion with patient, prednisone has worked for back pain in the past, would like to try this Prednisone 20 mg daily ordered, Tylenol 650 mg every 6 hours Continue pain control with as needed Dilaudid, oxycodone Encouraged to use incentive spirometry Denies lower back pain Outpatient follow-up for L4-L5 articular process fracture Small left pleural effusion: Hemothorax versus simple pleural effusion -Repeat chest x-ray no hemothorax, pneumothorax Hemoglobin stable Hyperkalemia End-stage renal disease on hemodialysis -Resolved with HD -Unit Secy consulted Diabetes mellitus type 1 -Uses Novolin 70/30 15 units 3 times a day at home -Continue NPH and insulin sliding scale Chronic systolic congestive heart failure, ejection fraction 25% -Appears to be euvolemic -Continue Lasix, Coreg Resume aspirin and Plavix Hypotension -Continue amlodipine DVT prophylaxis SCDs, early ambulation plan of care discussed with patient in detail and at length all questions answered He is understanding, agreeable, comfortable with the plan of care (2) Fracture of lumbar spine: (3) Acute hyperkalemia: Admission and Anticipated Discharge Date Admission Date: October 21, 2021 Admission and Anticipated Discharge Date Admission Date: October 21, 2021 Subjective Follow-up for multiple rib fractures, hyperkalemia in the setting of ESRD, etc. Seen standing at the bedside, not in distress States left-sided lower rib pain is increasing today No shortness of breath, chest pain, dizziness No other symptoms Review of Systems Review of Systems: all noted and negative except for above Physical Exam Physical Exam: General- oriented x 3, not in distress, speaks in sentences with no effort or accessory muscle use Eyes- anicteric Neck- no JVD Lungs- clear BS bilaterally, no rales/wheezes Positive tenderness left posterior lateral lower space ribs Heart- normal rate, regular rhythm; no murmurs Abdomen- normal bowel sounds, nondistended, soft, nontender Extremities- no pretibial edema, no calf tenderness Neuro- alert, oriented x 3; no gross focal neurologic deficits Skin- warm & dry Results & Data Results & Data ([facility]) Vital Signs (Past 12 Hours) Vital Signs Temp Pulse Pulse Pulse Resp BP Pulse Ox 10/23/21 16:01 71 10/23/21 10:54 36.6 C 70 18 126/77 97 10/23/21 08:43 68 10/23/21 07:44 36.5 C 73 18 126/71 92 all noted and reviewed including below (1) Multiple fractures of ribs of left side Encounter type: initial encounter Fracture type: closed Qualified Code(s): S22.42XA - Multiple fractures of ribs, left side, initial encounter for closed fracture
[2021-10-23] MEDS: CLOPIDOGREL BISULFATE 75 MG TAB PO SCH (17:54)
[2021-10-23] MEDS: ASPIRIN 81 MG ECTAB PO SCH (17:54)
--- NOTE | 2021-10-23 17:59 | Electrocardiogram Report ---
Test Reason : Blood Pressure : / mmHG Vent. Rate : 068 BPM Atrial Rate : 068 BPM P-R Int : 238 ms QRS Dur : 134 ms QT Int : 470 ms P-R-T Axes : 035 -62 094 degrees QTc Int : 499 ms Sinus rhythm with 1st degree A-V block Left axis deviation Non-specific intra-ventricular conduction block T wave abnormality, consider lateral ischemia Abnormal ECG When compared with ECG of 09-AUG-2021 05:52, Questionable change in QRS duration Confirmed by Hardeep Dang ([id number]) on 10/23/2021 5:59:06 PM Referred By: REFERRED SELF Confirmed By:Hardeep Dang
[2021-10-23 18:51] LABS: HBSAG NON-REACTIVE (NON-REACTIVE); Hepatitis B Surface Ab, Quant <5 mIU/mL (> OR = 10)
[2021-10-23] MEDS ORDERED: HYDROmorphone INJ 0.5 MG/0.5 ML SYR IV STA (20:26)
[2021-10-23] MEDS: ATORVASTATIN 40 MG TAB PO SCH (21:11)
[2021-10-23] MEDS: TERAZOSIN HCL 1 MG CAP PO SCH (21:14)
--- NOTE | 2021-10-24 02:44 | Communication Note ---
Date of Service: October 24, 2021 Code wilfredo called 2:30 AM Patient noted to be tachycardic by RN and later transiently unresponsive. No witnessed seizures. Patient denies chest pain, SOB. Patient complaining that it was very hot. BSG 200s. Transient V. tach run on the monitor as per PCU float RN EKG as per my interpretation rate 70, NSR, LAD, LAFB, 1 AVB, T wave abnormalities lateral leads, QTC 530 AP Paroxysmal VT PCU transfer Hold ciprofloxacin given QTC prolongation Cardiology consult Re: Paroxysmal VT Will relay to AM provider.
[2021-10-24] MEDS: ACETAMINOPHEN 325 MG TAB PO SCH ×4 (02:54→21:12)
[2021-10-24 03:08] LABS: Basophils # (auto) 0.01 K/uL (0-0.2); Basophils % (auto) 0.1 %; Eosinophils # (auto) 0.02 K/uL (0-0.5); Eosinophils % (auto) 0.3 %; Hematocrit (blood only) 35.7 % (42-52); Immature Granulocytes # (auto) 0.01 K/uL (0.00-0.02); Immature Granulocytes % (auto) 0.1 %; Lymphocytes # (auto) 0.68 K/uL (1.2-3.4); Lymphocytes % (auto) 10.1 %; Mean Corpuscular Hemoglobin 30.8 pg (25-34); Mean Corpuscular Hgb Conc 33.6 g/dL (32-36); Mean Corpuscular Volume 91.8 fL (80-100); Mean Platelet Volume 8.9 fL (7.4-10.4); Monocytes # (auto) 0.31 K/uL (0.11-0.59); Monocytes % (auto) 4.6 %; Neutrophils % (auto) 84.8 %; Platelet Count 181 K/uL (130-400); RDW Coefficient of Variation 16.2 % (11.5-14.5); RDW Standard Deviation 54.1 fL (36.4-46.3); Red Blood Count 3.89 M/uL (4.7-6.1); White Blood Count 6.73 K/uL (4.8-10.8)
[2021-10-24] MEDS ORDERED: METOPROLOL TARTRATE 1 MG/ML VIAL IV STA (03:14)
[2021-10-24 03:27] LABS: Partial Thromboplastin Time 28.2 Seconds (21.0-31.0)
[2021-10-24 03:52] LABS: BUN Creatinine Ratio 9.4 (10-20); Calcium 8.9 mg/dl (8.5-10.1); Creatinine Clr Calc Pharmacy 9.5 ml/min; Est GFR (African American) 5.5 ml/min; Est GFR (Non-African American) 4.7 ml/min; Magnesium 2.5 mg/dl (1.7-2.4); Potassium 7.4 mmol/L (3.5-5.1)
[2021-10-24] MEDS ORDERED: MAGNESIUM SULFATE / D5W 1 GM/100 ML BAG IV SCH ×2 (04:02→04:15)
[2021-10-24] MEDS ORDERED: CALCIUM GLUCONATE 10% 1,000 MG in DEXTROSE 5% 50 ML IV ONE (04:08)
[2021-10-24] MEDS ORDERED: STAT IV STA ×2 (04:08→08:32)
[2021-10-24] MEDS ORDERED: SODIUM BICARB 8.4% INJ 50 MEQ/50 ML SYR IV STA (04:08)
[2021-10-24] MEDS ORDERED: DEXTROSE 50% 50 ML SYRINGE IV ONE (04:09)
[2021-10-24] MEDS: HYDROmorphone INJ 0.5 MG/0.5 ML SYR IV PRN ×4 (04:23→21:25)
[2021-10-24] MEDS ORDERED: INSULIN HUMAN REGULAR PER UNIT 10 UNITS in SYRINGE 9.9 ML IV ONE (04:30)
[2021-10-24] MEDS: FUROSEMIDE 40 MG TAB PO SCH ×2 (04:49→17:20)
[2021-10-24] MEDS ORDERED: LORazepam 0.5 MG in SYRINGE 0.25 ML IV PRN (04:58)
[2021-10-24 07:54] LABS: BUN Creatinine Ratio 9.5 (10-20); Calcium 8.6 mg/dl (8.5-10.1); Creatinine Clr Calc Pharmacy 9.4 ml/min; Est GFR (African American) 5.4 ml/min; Est GFR (Non-African American) 4.6 ml/min; Potassium 7.2 mmol/L (3.5-5.1)
[2021-10-24 08:07] LABS: Estimated Average Glucose 192 mg/dl; Hemoglobin A1C 8.3 % (4.5-5.6)
[2021-10-24] MEDS ORDERED: SODIUM CHLORIDE 0.9% 1000ML 1,000 ML IV PRN (08:18)
[2021-10-24] MEDS ORDERED: CALCIUM GLUCONATE 10% 2,000 MG in DEXTROSE 5% 50 ML IV ONE (08:45)
[2021-10-24] MEDS ORDERED: HEPARIN SOD (PORCINE) 1000 UNIT/ML IV SCH (09:00)
[2021-10-24] MEDS: INSULIN ASPART PER UNIT SC SCH ×4 (09:03→21:08)
--- NOTE | 2021-10-24 09:05 | Electrocardiogram Report ---
Test Reason : Blood Pressure : / mmHG Vent. Rate : 072 BPM Atrial Rate : 072 BPM P-R Int : 266 ms QRS Dur : 166 ms QT Int : 488 ms P-R-T Axes : 046 -58 091 degrees QTc Int : 534 ms Poor data quality, interpretation may be adversely affected Sinus rhythm with 1st degree A-V block Left axis deviation Non-specific intra-ventricular conduction block Chronic T-wave inversion in Lateral leads Abnormal ECG When compared with ECG of 21-OCT-2021 16:11, QRS duration has increased Confirmed by Grayson Richardson ([id number]) on 10/24/2021 9:05:23 AM Referred By: REFERRED SELF Confirmed By:Grayson Richardson
--- NOTE | 2021-10-24 09:11 | Cardiology Consultation ---
Date of Consultation October 24, 2021 Assessment & Plan (1) Acute hyperkalemia: (2) Multiple fractures of ribs of left side: (3) HFrEF (heart failure with reduced ejection fraction): (4) Ventricular tachyarrhythmia: Sustained symptomatic polymorphic ventricular tachycardia in a patient with structural heart disease, marked hyperkalemia, concurrent use of proarrhythmic medication (cipro), QTc prolongation. RECOMMENDATIONS/PLAN: Discontinue cipro Avoid QTc prolongation medications Agree with emergent dialysis Maintain telemetry Change carvedilol to metoprolol succinate Hold off on antiarrhythmic therapy for now Limited echocardiogram to assess LV function Eventual cardiac catheterization and consideration for ICD implantation at [facility] Supervising Physician Co-Signing Physician Notes I have seen and examined the patient. I reviewed the medical record and discussed the case with Mr. Ramsay. I agree with the plan as outlined above. If the patient proceeds to cardiac catheterization I believe it should be completed at [facility]. Same with any consideration for an ICD implant. History of Present Illness Reason for Consultation: Ventricular tachycardia Requesting Physician: Cydney Attending Physician: Christos Woodruff History of Present Illness Georgi Gerard is a marked complex 46 year old male who was admitted to [facility] on October 21, 2021 after a mechanical fall in the bathroom with resultant left sided rib fractures (posterior 9-12 ribs, posterior lateral 10-11 ribs) and a left articular process fracture of L4 and L5. Potassium was 7.1 mmol/L. He was emergently dialyzed on admission. Patient has been receiving as needed Percocet and Dilaudid for pain control. Last night around 2:30 he awoke with worsening musculoskeletal chest pain and was noted to be tachycardic then unresponsive. Telemetry monitoring review this morning reveals an approximately 4 minute episode of wide complex tachycardia consistent with ventricular tachycardia last night at 2:30 AM that was followed by a brief period of high degree AV block. Two additional, short episodes, of ventricular tachycardia observed early this morning. Potassium this morning was 7.2 mmol/L. Plans for emergent dialysis are underway this morning. Magnesium was not obtained on presentation however patient's magnesium level was 2.5 mg/dL this morning. TSH was normal in July 2021. EKG on presentation revealed sinus with 1st degree A-V block, left axis deviation, non-specific intra-ventricular conduction block, T wave abnormality. QTc 499 ms. EKG this morning reveals sinus rhythm with 1st degree A-V block, left axis deviation, non-specific intra-ventricular conduction block, chronic T- wave inversion in lateral leads. QTc 534 ms. Ciprofloxacin (prescribed because of osteomyelitis of the 3r finger, right hand) was appropriately discontinued and Cardiology was consulted. Patient with systolic congestive heart failure, ejection fraction 25% Problem List Type 1 diabetes mellitus, dx 1993 with severe retinopathy, end-stage renal disease, on in-home hemodialysis under the direction of Dr. Montejo, s/p ALF AC fistula, 05/2018 ASCVD. Status post PCI of the LAD with a Xience 2.5mm x 12 mm MIRTA. ~ 12 years ago. Cardiac catheterization in September 2018 due to abnormal nuclear stress with moderate nonobstructive coronary artery disease including a 40% mid LAD stenosis, 50% mid circumflex stenosis, and luminal irregularities in the RCA. Systolic congestive heart failure initially observed in July 2021 Longstanding labile hypertension Dyslipidemia with an optimal LDL goal of < 70 mg/dL Pericardial effusion, asymptomatic Peripheral vascular disease, followed by [facility] Vascular Surgery Hospitalization 08/08/2021 until 08/10/2021 having presented with profound easy fatigability, low blood pressure, and was found to be anemic with hemoglobin of 7.2. Treatment included transfusion. An echocardiogram had been performed 08/09/2021 with results as outlined below. 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 Summary of echocardiogram report 08/09/2021, [facility]: LVEF Flattened septum c onsisten with RV pressure/vl overload, akinesis of the anterior.anteroseptal aguilar, moderate global hypokinesis. Reduced RV systolic function, free RV wall hypokinesis with preserved apical all motion, grade 1 diastlic dysfunction, mild aortic sclerosis, no stenosis, mild to moderate MR, mild TR, pulmonary HTN 42 mm Hg. Previous echocardiogram dating back to December,, included the LVEF of 53% as calculated by the 3D dimensional volumes. Since hospital stay, follow-up echocardiogram performed as an outpatient 08/22/2021 revealed severe global left ventricular hypokinesis, ejection fraction 21%. A small loculated right lateral, left lateral posterior pericardial effusion noted. Of note patient underwent nuclear stress testing as part of a preoperative evaluation candidacy of renal transplant April,, with normal perfusion noted that time, LVEF 59%. Family History: Mother with T2DM and a prior CVA. Father with dyslipidemia. Social History: No cigarettes. Chews since 18 years of age. Rare alcohol consumption. No illegal drug use. to Teressa. 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 Allergies Allergy/AdvReac Type Severity Reaction Status Date / Time benzonatate Allergy Unknown told not Verified 08/23/21 01:14 to take ibuprofen Allergy Unknown told not Verified 08/23/21 01:14 to take baclofen AdvReac Severe sedation/co Verified 08/23/21 01:14 nfusion oxycodone AdvReac Intermediate Confusion Verified 08/23/21 01:14 FRED Inhibitors AdvReac Unknown Unknown Verified 08/23/21 01:14 Home Medications Medication Instructions Recorded Confirmed Type atorvastatin 40 mg tablet 40 mg PO HS 02/13/18 10/21/21 History clopidogrel 75 mg tablet 75 mg PO DAILY 02/13/18 10/21/21 History furosemide 40 mg tablet (Lasix) 40 mg PO BID 02/13/18 10/21/21 History insulin aspart U-100 100 unit/mL 0 unit SUBCUT TID PRN 02/13/18 08/23/21 History (3 mL) subcutaneous pen (Novolog Flexpen U-100 Insulin aspart) nitroglycerin 0.4 mg sublingual 0.4 mg SUBLINGUAL DIRECTED PRN 02/13/18 08/23/21 History tablet (Nitrostat) omeprazole 20 mg capsule,delayed 20 mg PO QAM 02/13/18 10/21/21 History release terazosin 2 mg capsule 4 mg PO HS 02/13/18 10/21/21 History aspirin 81 mg tablet,delayed 81 mg PO DAILY 06/10/20 10/21/21 History release hydralazine 100 mg tablet 100 mg PO BID PRN 10/14/20 08/23/21 History oxycodone-acetaminophen 5 mg-325 1 tab PO Q4H PRN 08/08/21 10/21/21 History mg tablet Epogen Inj 0 mg INJ [id number] 08/23/21 08/23/21 History amlodipine 5 mg tablet 5 mg PO DAILY 08/23/21 10/21/21 History carvedilol 25 mg tablet 25 mg PO BID #0 tab 08/24/21 10/21/21 Rx cephalexin 500 mg capsule 500 mg PO DAILY #4 cap 08/24/21 Rx oxycodone 5 mg tablet 5 mg PO Q4H PRN #5 tab 08/24/21 Rx sulfamethoxazole 800 1 tab PO UD #12 tab 08/24/21 Rx mg-trimethoprim 160 mg tablet (Bactrim DS) Novolin 70-30 FlexPen U-100 15 units SC TID 10/21/21 10/21/21 History ciprofloxacin HCl 500 mg tablet 500 mg PO DAILY 10/21/21 10/21/21 History Patient History Medical History Acute left lumbar radiculopathy Anemia Bilateral carotid artery stenosis Monitored with Carotid Doppler q6 months. 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 Carotid artery stenosis Coronary artery disease Diabetes mellitus, insulin-dependent (IDDM or type I) DM I (diabetes mellitus, type I) Dyslipidemia ESRD (end stage renal disease) on dialysis GERD (gastroesophageal reflux disease) Gout Hypertension Hypertensive urgency Labile hypertension Orthostatic hypotension Presence of artificial eye LEFT Ulcer of finger R third digit Weakness Surgical History History of discectomy LUMBAR History of eye surgery MULTIPLE EYE SURGERIES S/T COMPLICATIONS OF DIABETES INCLUDING DETACHED RETINA, DSEAK PROCEDURES, AND ENUCLEATION OF LEFT EYE Status post cardiac catheterization Status post coronary artery stent placement 2009, NO HX OF PA. [facility]. Family History Other Cancer Diabetes Gallbladder disease Heart disease Hypertension Social History Smoking Status: Never smoker Tobacco Type: Smokeless Tobacco (Dip or Chew) Second Hand Exposure: No; Hx Alcohol Use: No Hx Substance Use: No Preferred Language: Kazakh Communication Ability: Effective Visual Impairment: Blindness [employer] Professor Required: No Beliefs That Will Affect Care: None marital status: Current Living Situation: Spouse current occupational status: disabled Feels Safe at Home: Yes Assistive Devices: None Review of Systems Review of Systems: Complete Review of Systems is as stated above, negative, or noncontributory. Physical Exam Physical Exam: General: A&Ox3. NAD. HENT: Normocephalic. 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 No overt JVD. Heart: RRR at 72 bpm. S1 and S2 noted. No murmurs. Lungs: Clear to auscultation. Abdomen: +BS. Soft. Extremities: Healed wound on the distal portion of the right middle finger. Good right radial pulse. Left upper extremity AV fistula. Mild lower extremity edema. No clubbing. Pulses: radial=2/4, posterior tibial=2/4 on the right and 1/4 on the left. Results & Data ([facility]) Vital Signs (Past 12 Hours) Vital Signs Temp Pulse Pulse Pulse Resp BP BP 10/24/21 07:23 36.4 C L 73 14 126/76 10/24/21 04:23 74 132/75 10/24/21 03:21 36.6 C 82 20 148/82 H 10/24/21 02:50 36.4 C L 80 80 22 145/83 H 10/23/21 22:49 36.5 C 67 18 131/51 L Pulse Ox 10/24/21 07:23 94 10/24/21 04:23 10/24/21 03:21 92 10/24/21 02:50 100 10/23/21 22:49 99 Laboratory Results Laboratory Results - last 24 hr 10/21/21 10/22/21 10/23/21 12:44 07:18 11:37 WBC RBC Hgb Hct MCV MCH MCHC RDW Std Deviation RDW Coeff of Nessa Plt Count MPV Immature Gran % (Auto) Neut % (Auto) Lymph % (Auto) [place] % (Auto) Eos % (Auto) Baso % (Auto) Neut # (Auto) Lymph # (Auto) [place] # (Auto) Eos # (Auto) Baso # (Auto) Immature Gran # (Auto) APTT PTT Ratio Sodium Potassium Chloride Carbon Dioxide Anion Gap BUN Creatinine Est Cr Clr Drug Dosing Est GFR ( Amer) Est GFR (Non-Af Amer) BUN/Creatinine Ratio Glucose POC Glucose 96 Estimat Average Glucose 192 Hemoglobin A1c 8.3 H Osmolality Calcium Magnesium Hep Bs Antigen NON-REACTIVE Hep Bs Ag Confirmation TNP Hep Bs Antibody, Quant <5 L 10/23/21 10/23/21 10/24/21 16:42 19:26 02:30 WBC RBC Hgb Hct MCV MCH MCHC RDW Std Deviation RDW Coeff of Nessa Plt Count MPV Immature Gran % (Auto) Neut % (Auto) Lymph % (Auto) [place] % (Auto) Eos % (Auto) Baso % (Auto) Neut # (Auto) Lymph # (Auto) [place] # (Auto) Eos # (Auto) Baso # (Auto) Immature Gran # (Auto) APTT PTT Ratio Sodium Potassium Chloride Carbon Dioxide Anion Gap BUN Creatinine Est Cr Clr Drug Dosing Est GFR ( Amer) Est GFR (Non-Af Amer) BUN/Creatinine Ratio Glucose POC Glucose 128 H 155 H 227 H Estimat Average Glucose Hemoglobin A1c Osmolality Calcium Magnesium Hep Bs Antigen Hep Bs Ag Confirmation Hep Bs Antibody, Quant 10/24/21 10/24/21 10/24/21 02:42 02:42 02:42 WBC 6.73 RBC 3.89 L Hgb 12.0 L Hct 35.7 L MCV 91.8 MCH 30.8 MCHC 33.6 RDW Std Deviation 54.1 H RDW Coeff of Nessa 16.2 H Plt Count 181 MPV 8.9 Immature Gran % (Auto) 0.1 Neut % (Auto) 84.8 Lymph % (Auto) 10.1 [place] % (Auto) 4.6 Eos % (Auto) 0.3 Baso % (Auto) 0.1 Neut # (Auto) 5.70 Lymph # (Auto) 0.68 L [place] # (Auto) 0.31 Eos # (Auto) 0.02 Baso # (Auto) 0.01 Immature Gran # (Auto) 0.01 APTT 28.2 PTT Ratio 1.0 Sodium 127 L Potassium 7.4 H* D Chloride 87 L Carbon Dioxide 21 Anion Gap 19 H BUN 106 H D Creatinine 11.29 H* D Est Cr Clr Drug Dosing 9.5 Est GFR ( Amer) 5.5 Est GFR (Non-Af Amer) 4.7 BUN/Creatinine Ratio 9.4 L Glucose 249 H POC Glucose Estimat Average Glucose Hemoglobin A1c Osmolality Calcium 8.9 Magnesium 2.5 H Hep Bs Antigen Hep Bs Ag Confirmation Hep Bs Antibody, Quant 10/24/21 10/24/21 10/24/21 02:42 02:50 02:54 WBC RBC Hgb Hct MCV MCH MCHC RDW Std Deviation RDW Coeff of Nessa Plt Count MPV Immature Gran % (Auto) Neut % (Auto) Lymph % (Auto) [place] % (Auto) Eos % (Auto) Baso % (Auto) Neut # (Auto) Lymph # (Auto) [place] # (Auto) Eos # (Auto) Baso # (Auto) Immature Gran # (Auto) APTT PTT Ratio Sodium Potassium Chloride Carbon Dioxide Anion Gap BUN Creatinine Est Cr Clr Drug Dosing Est GFR ( Amer) Est GFR (Non-Af Amer) BUN/Creatinine Ratio Glucose POC Glucose 230 H 264 H Estimat Average Glucose Hemoglobin A1c Osmolality 319 H Calcium Magnesium Hep Bs Antigen Hep Bs Ag Confirmation Hep Bs Antibody, Quant 10/24/21 10/24/21 10/24/21 05:14 06:56 07:16 WBC RBC Hgb Hct MCV MCH MCHC RDW Std Deviation RDW Coeff of Nessa Plt Count MPV Immature Gran % (Auto) Neut % (Auto) Lymph % (Auto) [place] % (Auto) Eos % (Auto) Baso % (Auto) Neut # (Auto) Lymph # (Auto) [place] # (Auto) Eos # (Auto) Baso # (Auto) Immature Gran # (Auto) APTT PTT Ratio Sodium 129 L Potassium 7.2 H* Chloride 88 L Carbon Dioxide 23 Anion Gap 18 H BUN 109 H Creatinine 11.48 H* Est Cr Clr Drug Dosing 9.4 Est GFR ( Amer) 5.4 Est GFR (Non-Af Amer) 4.6 BUN/Creatinine Ratio 9.5 L Glucose 208 H POC Glucose 268 H 202 H Estimat Average Glucose Hemoglobin A1c Osmolality Calcium 8.6 Magnesium Hep Bs Antigen Hep Bs Ag Confirmation Hep Bs Antibody, Quant Diagnostic Findings Coronary angiography on October 15, 2018 at [facility] demonstrated mild to moderate nonobstructive coronary artery disease with a 40% mid LAD stenosis, two serial 50% stenosis in the mid circumflex, and luminal irregularities of the RCA. January 05, 2021 TTE Interpretation Summary (as per Dr. Lechuga): The LV wall thickness is moderately increased (concentric). The left ventricular wall motion is normal. The left ventricular systolic function is normal. Calculated LV ejection Fraction = 53% (three dimensional volumes). The left atrium is severely enlarged. The left ventricular diastolic function is severely abnormal (grade III). Mild tricuspid regurgitation is present. The estimated pulmonary artery systolic pressure is 32 mm Hg. There is a small loculated right lateral, left lateral and posterior pericardial effusion. Cardiac tamponade is absent. Compared to the prior study dated 04/01/2020, the right ventricular systolic function has improved, the inferior vena cava is no longer dilated (suggestive of improved right atrial pressure), and the pulmonary pressures have improved. The pericardial effusion is stable, without significant interval change. May 30, 2021 Lexiscan Interpretation Summary (as per Dr. Wilkerson): Lexiscan nuclear cardiac stress test negative for ischemia. Gated SPECT images reveals normal myocardial thickening and wall motion. The LV ejection fraction is calculated at 59%. (1) Multiple fractures of ribs of left side Encounter type: initial encounter Fracture type: closed Qualified Code(s): S22.42XA - Multiple fractures of ribs, left side, initial encounter for closed fracture
--- NOTE | 2021-10-24 10:21 | Nephrology Progress Note ---
Date of Service October 24, 2021 Assessment & Plan (1) Acute hyperkalemia: Plan: Due to ESRD. admission K was 7. He was dialysed emergently on admission. K is again up to 7.2 with runs of V. tach today. -Patient is being dialyzed urgently for 3-1/2 hours on a 2K bath on the monitor. Low k diet. Daily BMP. (2) Multiple fractures of ribs of left side: Plan: Pain control per primary team. he will need prn pain meds for HD (3) ESRD (end stage renal disease) on dialysis: Plan: Patient on home hemo 4x/week. k was 7 on admission. K remains high. -Patient is tolerating dialysis well today Admission and Anticipated Discharge Date Admission Date: October 21, 2021 Subjective Seen in follow-up for ESRD. Patient had hyperkalemia of 7.2 this morning and is also having runs of V. tach. No shortness of breath or leg swelling. Patient was seen and examined while on dialysis Review of Systems Review of Systems: All other systems were reviewed and negative except as noted in HPI Physical Exam Physical Exam: General exam: Appears comfortable, no acute distress HEENT: Pupils are equal and reactive to light Neck: No JVD, neck is supple trachea is midline Respiratory system: tenderness on chest wall. Clear breath sounds bilaterally. Gastrointestinal: Abdomen is soft, non distended, non tender, bowel sounds are present CVS: Regular rate and rhythm. No murmurs, rubs or gallops Musculoskeletal: No joint or muscle tenderness Extremities: Non tender, no edema, peripheral pulses are present Neuro: Oriented, no tremors, no focal neurological deficits Skin: No rashes Results & Data ([facility]) Vital Signs (Past 12 Hours) Vital Signs Temp Pulse Pulse Pulse Resp BP BP 10/24/21 07:23 36.4 C L 73 14 126/76 10/24/21 04:23 74 132/75 10/24/21 03:21 36.6 C 82 20 148/82 H 10/24/21 02:50 36.4 C L 80 80 22 145/83 H 10/23/21 22:49 36.5 C 67 18 131/51 L Pulse Ox 10/24/21 07:23 94 10/24/21 04:23 10/24/21 03:21 92 10/24/21 02:50 100 10/23/21 22:49 99 Laboratory Results 10/24/21 06:56 10/24/21 02:42 WBC 6.73 RBC 3.89 L MCV 91.8 MCH 30.8 MCHC 33.6 RDW Std Deviation 54.1 H RDW Coeff of Nessa 16.2 H Plt Count 181 MPV 8.9 (1) Multiple fractures of ribs of left side Encounter type: initial encounter Fracture type: closed Qualified Code(s): S22.42XA - Multiple fractures of ribs, left side, initial encounter for closed fracture
[2021-10-24] MEDS: LIDOCAINE 5% 1 PATCH TD SCH (10:28)
[2021-10-24] MEDS: PANTOprazole 40 MG TAB PO SCH (10:28)
[2021-10-24] MEDS: amLODIPine BESYLATE 5 MG TAB PO SCH (13:37)
[2021-10-24] MEDS: CLOPIDOGREL BISULFATE 75 MG TAB PO SCH (13:38)
[2021-10-24] MEDS: ASPIRIN 81 MG ECTAB PO SCH (13:38)
[2021-10-24] MEDS: POLYETHYLENE (MIRALAX) 17 GM PACK PO SCH (13:39)
[2021-10-24] MEDS: HEPARIN SOD (PORCINE) 1000 UNIT/ML IV SCH (13:49)
[2021-10-24] MEDS: carvediloL 25 MG TAB PO SCH (13:51)
[2021-10-24] MEDS: predniSONE 20 MG TAB PO SCH (14:42)
--- NOTE | 2021-10-24 18:00 | Hospitalist Progress Note ---
Date of Service October 24, 2021 Assessment & Plan (1) Multiple fractures of ribs of left side: Plan: (1) Multiple fractures of ribs of left side: Plan: 46-year-old male with history of diabetes type 1, end-stage renal disease on hemodialysis, CHF, chronic, systolic 25% ejection fraction, hypertension, Other problems noted below presenting with back pain after sustaining a fall. Status post mechanical fall Left rib fractures posterior 9-12 ribs, posterior lateral 10th and 11th rib Left vertebral articular process fracture L4 and L5 -Continue usual Percocet as needed Dilaudid IV 0.5 mg every 4-6 hours as needed Orthopedic spine consult -Incentive spirometry Pain control -PT and OT evaluation 10/25 Repeat chest x-ray: No signs of pneumothorax or hemothorax pain about the same continue Prednisone 20 mg daily ordered, Tylenol 650 mg every 6 hours Continue pain control with as needed Dilaudid, oxycodone Encouraged to use incentive spirometry Denies lower back pain Outpatient follow-up for L4-L5 articular process fracture Small left pleural effusion: Hemothorax versus simple pleural effusion -Repeat chest x-ray no hemothorax, pneumothorax Hemoglobin stable Hyperkalemia End-stage renal disease on hemodialysis - HD today Diabetes mellitus type 1 -Uses Novolin 70/30 15 units 3 times a day at home -Continue NPH and insulin sliding scale Chronic systolic congestive heart failure, ejection fraction 25% V Tach episode with Syncope - in the setting of Hyper K - Carvedilol changed to Metoprolol d/c Cipro -Appears to be euvolemic -Continue Lasix, Coreg, Aspirin and Plavix R middle Finger wound - appears to be healing well Cipro discontinued Hypotension -Continue amlodipine DVT prophylaxis SCDs, early ambulation plan of care discussed with patient in detail and at length all questions answered He is understanding, agreeable, comfortable with the plan of care (2) Fracture of lumbar spine: (3) Acute hyperkalemia: Admission and Anticipated Discharge Date Admission Date: October 21, 2021 Admission and Anticipated Discharge Date Admission Date: October 21, 2021 Subjective ff up for rib fx, hyperkalemia, etc events overnight noted was having few sec runs of v tach in the morning seen at HD unit sitting up, comfortable states he feels ok still having significant pain on the left posterior rib region no chest pain, dyspnea, palpitations, dizziness no other symptoms Review of Systems Review of Systems: all noted and negative except for above Physical Exam Physical Exam: General- oriented x 3, not in distress, speaks in sentences with no effort or accessory muscle use Eyes- anicteric Neck- no JVD Lungs- clear breath sounds bilaterally, no rales/wheezes (+) moderate tenderness L lower posterior rib region Heart- normal rate, regular rhythm; no murmurs Abdomen- normal bowel sounds, nondistended, soft, nontender Extremities- no pretibial edema, no calf tenderness Neuro- alert, oriented x 3; no gross focal neurologic deficits Skin- warm & dry Results & Data Results & Data ([facility]) Vital Signs (Past 12 Hours) Vital Signs Temp Pulse Pulse Resp BP BP Pulse Ox 10/24/21 15:31 36.5 C 79 16 131/75 94 10/24/21 13:20 36.5 C 73 174/67 H 10/24/21 13:00 81 113/92 10/24/21 12:40 72 127/63 10/24/21 12:20 55 L 134/105 H 10/24/21 12:00 73 156/82 H 10/24/21 11:40 74 150/88 H 10/24/21 11:20 73 160/77 H 10/24/21 11:00 75 144/75 H 10/24/21 10:40 75 146/78 H 10/24/21 10:20 76 146/79 H 10/24/21 10:00 78 143/76 H 10/24/21 09:40 78 138/76 10/24/21 09:15 36.6 C 78 10/24/21 07:44 71 10/24/21 07:23 36.4 C L 73 14 126/76 94 all noted and reviewed including below (1) Multiple fractures of ribs of left side Encounter type: initial encounter Fracture type: closed Qualified Code(s): S22.42XA - Multiple fractures of ribs, left side, initial encounter for closed fracture
[2021-10-24] MEDS: ATORVASTATIN 40 MG TAB PO SCH (21:13)
[2021-10-24] MEDS: METOPROLOL SUCC 50MG EXT REL TAB PO SCH (21:14)
[2021-10-24] MEDS: TERAZOSIN HCL 1 MG CAP PO SCH (21:16)
[2021-10-25] MEDS: ACETAMINOPHEN 325 MG TAB PO SCH ×4 (01:00→19:20)
[2021-10-25] MEDS: HYDROmorphone INJ 0.5 MG/0.5 ML SYR IV PRN ×5 (01:03→18:46)
[2021-10-25] MEDS: oxyCODONE HCL IR 5 MG TAB (IMMEDIATE RELEASE) PO PRN ×2 (02:49→12:33)
[2021-10-25 03:44] LABS: Basophils # (auto) 0.01 K/uL (0-0.2); Basophils % (auto) 0.1 %; Eosinophils # (auto) 0.02 K/uL (0-0.5); Eosinophils % (auto) 0.3 %; Hematocrit (blood only) 31.8 % (42-52); Hemoglobin 10.5 g/dL (14.0-18.0); Immature Granulocytes # (auto) 0.01 K/uL (0.00-0.02); Immature Granulocytes % (auto) 0.1 %; Lymphocytes # (auto) 0.44 K/uL (1.2-3.4); Lymphocytes % (auto) 5.5 %; Mean Corpuscular Hemoglobin 31.6 pg (25-34); Mean Corpuscular Volume 95.8 fL (80-100); Mean Platelet Volume 9.2 fL (7.4-10.4); Monocytes # (auto) 0.48 K/uL (0.11-0.59); Neutrophils # (auto) 7.03 K/uL (1.4-6.5); Platelet Count 183 K/uL (130-400); RDW Standard Deviation 55.9 fL (36.4-46.3); Red Blood Count 3.32 M/uL (4.7-6.1); White Blood Count 7.99 K/uL (4.8-10.8)
[2021-10-25 03:49] LABS: Partial Thromboplastin Time 27.1 Seconds (21.0-31.0)
[2021-10-25 04:15] LABS: BUN Creatinine Ratio 7.7 (10-20); Calcium 8.5 mg/dl (8.5-10.1); Creatinine Clr Calc Pharmacy 13.1 ml/min; Est GFR (African American) 8.1 ml/min; Magnesium 2.1 mg/dl (1.7-2.4); Troponin I High Sensitivity 59.7 pg/ml (0-20)
[2021-10-25] MEDS ORDERED: NITROGLYCERIN SL 0.4 MG/TAB TAB SL STA (04:19)
[2021-10-25] MEDS ORDERED: CALCIUM GLUCONATE 10% 1,000 MG in DEXTROSE 5% 50 ML IV ONE (04:20)
[2021-10-25] MEDS ORDERED: STAT IV STA (04:20)
[2021-10-25] MEDS ORDERED: SODIUM BICARB 8.4% INJ 50 MEQ/50 ML SYR IV STA (04:22)
[2021-10-25] MEDS ORDERED: NITROGLYCERIN SL 0.4 MG/TAB TAB ONE (04:31)
[2021-10-25] MEDS ORDERED: INSULIN HUMAN REGULAR PER UNIT 10 UNITS in SYRINGE 9.9 ML IV ONE (04:35)
[2021-10-25] MEDS ORDERED: oxyCODONE HCL IR 5 MG TAB (IMMEDIATE RELEASE) PO STA (04:39)
[2021-10-25] MEDS: CLOPIDOGREL BISULFATE 75 MG TAB PO SCH (08:10)
[2021-10-25] MEDS: predniSONE 20 MG TAB PO SCH (08:10)
[2021-10-25] MEDS: METOPROLOL SUCC 50MG EXT REL TAB PO SCH ×2 (08:10→21:11)
[2021-10-25] MEDS: FUROSEMIDE 40 MG TAB PO SCH ×2 (08:10→17:27)
[2021-10-25] MEDS: PANTOprazole 40 MG TAB PO SCH (08:10)
[2021-10-25] MEDS: ASPIRIN 81 MG ECTAB PO SCH (08:10)
[2021-10-25] MEDS: amLODIPine BESYLATE 5 MG TAB PO SCH (08:10)
[2021-10-25] MEDS: POLYETHYLENE (MIRALAX) 17 GM PACK PO SCH (08:10)
[2021-10-25 08:18] LABS: Potassium 5.7 mmol/L (3.5-5.1)
[2021-10-25] MEDS: INSULIN ASPART PER UNIT SC SCH ×4 (08:18→21:02)
[2021-10-25 08:19] LABS: Troponin I High Sensitivity 64.8 pg/ml (0-20)
[2021-10-25] MEDS: LIDOCAINE 5% 1 PATCH TD SCH (08:23)
[2021-10-25] MEDS ORDERED: SODIUM CHLORIDE 0.9% 1000ML 1,000 ML IV PRN (08:26)
[2021-10-25] MEDS ORDERED: HEPARIN SOD (PORCINE) 1000 UNIT/ML IV ONE (08:26)
--- NOTE | 2021-10-25 09:18 | Cardiology Progress Note ---
Date of Service October 25, 2021 Assessment & Plan (1) Acute hyperkalemia: (2) Multiple fractures of ribs of left side: (3) HFrEF (heart failure with reduced ejection fraction): (4) Ventricular tachyarrhythmia: Plan: Sustained symptomatic ventricular tachycardia around 02:30 on 10/24/2021 in a patient with structural heart disease, in the setting of marked hyperkalemia and the concurrent use of cipro, QTc prolongation. RECOMMENDATIONS/PLAN: Cipro discontinued. Avoid QTc prolongation medications Carvedilol 25 mg twice a day changed to metoprolol succinate 100 mg twice a day this admission. Hold off on antiarrhythmic therapy Echocardiogram, to assess LV function, performed this morning - interpretation pending. Eventual cardiac catheterization and consideration for ICD implantation at [facility] Maintain telemetry ? Retry Imdur, probably with concurrent reduction in terazosin dosing. Admission and Anticipated Discharge Date Admission Date: October 21, 2021 Supervising Physician Co-Signing Physician Notes I have seen and examined the patient. I reviewed the medical record and discussed the case with Mr. Ramsay. I agree with the plan as outlined above. If he requires a cardiac catheterization or ICD implantation it should be completed at [facility]. Subjective Patient seen and examined in the midst of dialysis. Chart, medications, and telemetry reviewed this morning.. Left sided chest discomfort overnight. EKG at that time (25-OCT-2021 @ 02:37:26) revealed normal sinus rhythm, left axis deviation, and lateral ST & T wave abnormality suggestive of ischemia (similar to the EKG dated 08/09/2021). QTc 486 ms. Chest discomfort is definitely reproducible with palpation of the chest wall. Telemetry: Sinus in the 60's and 70's with an occasional PVC. No further VT since the 6 beat run on 10/24/2021 at 16:05. Resting echocardiography performed this morning; interpretation pending. Review of Systems Review of Systems: Complete Review of Systems is as stated above, negative, or noncontributory. Physical Exam Physical Exam: General: A&Ox3. NAD. HENT: Normocephalic. 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 No overt JVD. Heart: RRR at 66 bpm. S1 and S2 noted. No murmurs. Lungs: Clear to auscultation. Chest: Reproducible chest wall pain. Abdomen: +BS. Soft. Extremities: Healed wound on the distal portion of the right middle finger. Good right radial pulse. Left upper extremity AV fistula. Results & Data ([facility]) Vital Signs (Past 12 Hours) Vital Signs Temp Pulse Pulse Resp BP Pulse Ox 10/25/21 08:09 66 135/57 L 10/25/21 07:16 62 10/25/21 04:33 64 107/44 L 10/25/21 02:40 36.6 C 70 12 127/71 98 10/24/21 23:12 36.8 C 85 18 104/69 94 Laboratory Results Laboratory Results - last 24 hr 10/24/21 10/24/21 10/24/21 02:50 13:34 16:22 WBC RBC Hgb Hct MCV MCH MCHC RDW Std Deviation RDW Coeff of Nessa Plt Count MPV Immature Gran % (Auto) Neut % (Auto) Lymph % (Auto) [place] % (Auto) Eos % (Auto) Baso % (Auto) Neut # (Auto) Lymph # (Auto) [place] # (Auto) Eos # (Auto) Baso # (Auto) Immature Gran # (Auto) APTT PTT Ratio Sodium Potassium Chloride Carbon Dioxide Anion Gap BUN Creatinine Est Cr Clr Drug Dosing Est GFR ( Amer) Est GFR (Non-Af Amer) BUN/Creatinine Ratio Glucose POC Glucose 119 H 157 H Calcium Magnesium Troponin I High Sens TSH 3.369 10/24/21 10/25/21 10/25/21 20:28 03:14 03:14 WBC 7.99 RBC 3.32 L Hgb 10.5 L Hct 31.8 L MCV 95.8 MCH 31.6 MCHC 33.0 RDW Std Deviation 55.9 H RDW Coeff of Nessa 16.0 H Plt Count 183 MPV 9.2 Immature Gran % (Auto) 0.1 Neut % (Auto) 88.0 Lymph % (Auto) 5.5 [place] % (Auto) 6.0 Eos % (Auto) 0.3 Baso % (Auto) 0.1 Neut # (Auto) 7.03 H Lymph # (Auto) 0.44 L [place] # (Auto) 0.48 Eos # (Auto) 0.02 Baso # (Auto) 0.01 Immature Gran # (Auto) 0.01 APTT 27.1 PTT Ratio 1.0 Sodium Potassium Chloride Carbon Dioxide Anion Gap BUN Creatinine Est Cr Clr Drug Dosing Est GFR ( Amer) Est GFR (Non-Af Amer) BUN/Creatinine Ratio Glucose POC Glucose 137 H Calcium Magnesium Troponin I High Sens TSH 10/25/21 10/25/21 10/25/21 03:14 07:11 07:12 WBC RBC Hgb Hct MCV MCH MCHC RDW Std Deviation RDW Coeff of Nessa Plt Count MPV Immature Gran % (Auto) Neut % (Auto) Lymph % (Auto) [place] % (Auto) Eos % (Auto) Baso % (Auto) Neut # (Auto) Lymph # (Auto) [place] # (Auto) Eos # (Auto) Baso # (Auto) Immature Gran # (Auto) APTT PTT Ratio Sodium 131 L Potassium 6.0 H 5.7 H Chloride 91 L Carbon Dioxide 26 Anion Gap 14 H BUN 63 H D Creatinine 8.20 H* D Est Cr Clr Drug Dosing 13.1 Est GFR ( Amer) 8.1 Est GFR (Non-Af Amer) 7.0 BUN/Creatinine Ratio 7.7 L Glucose 358 H* POC Glucose 171 H Calcium 8.5 Magnesium 2.1 Troponin I High Sens 59.7 H* 64.8 H* TSH (1) Multiple fractures of ribs of left side Encounter type: initial encounter Fracture type: closed Qualified Code(s): S22.42XA - Multiple fractures of ribs, left side, initial encounter for closed fracture
[2021-10-25] MEDS: HEPARIN SOD (PORCINE) 1000 UNIT/ML IV SCH ×3 (09:28→18:28)
[2021-10-25] MEDS ORDERED: MIDODRINE HCL 10 MG TAB PO ONE (09:43)
--- NOTE | 2021-10-25 09:50 | Electrocardiogram Report ---
Test Reason : Blood Pressure : / mmHG Vent. Rate : 070 BPM Atrial Rate : 070 BPM P-R Int : 188 ms QRS Dur : 106 ms QT Int : 450 ms P-R-T Axes : 030 -36 122 degrees QTc Int : 486 ms Normal sinus rhythm Left axis deviation Chronic T-wave inversion in Lateral leads Prolonged QT Abnormal ECG When compared with ECG of 24-OCT-2021 03:49, ND interval has decreased QRS duration has decreased QT has shortened Confirmed by Grayson Richardson ([id number]) on 10/25/2021 9:49:26 AM Referred By: REFERRED SELF Confirmed By:Grayson Richardson
--- NOTE | 2021-10-25 10:28 | Nephrology Progress Note ---
Date of Service October 25, 2021 Assessment & Plan (1) Acute hyperkalemia: Plan: Due to ESRD. admission K was 7. He was dialysed emergently on admission. K is again up to 5.7. -Patient is being dialyzed for 3 hours on a 2K bath for 1 hour and 1K bath for 2 hours. -We will give midodrine 10 mg once Low k diet, carb consistent. Patient does not want the salt restriction and is refusing to eat. Okay to add salt Daily BMP. (2) Multiple fractures of ribs of left side: Plan: Pain control per primary team. he will need prn pain meds for HD (3) ESRD (end stage renal disease) on dialysis: Plan: Patient on home hemo 4x/week. k was 7 on admission. K remains high. -Patient is tolerating dialysis well today Admission and Anticipated Discharge Date Admission Date: October 21, 2021 Subjective Seen for ESRD. He is complaining of renal diet. He did not eat anything this morning. Patient was seen and examined while on dialysis. Blood pressure is low. Review of Systems Review of Systems: All other systems were reviewed and negative except as noted in HPI Physical Exam Physical Exam: General exam: Appears comfortable, no acute distress HEENT: Pupils are equal and reactive to light Neck: No JVD, neck is supple trachea is midline Respiratory system: tenderness on chest wall. Clear breath sounds bilaterally. Gastrointestinal: Abdomen is soft, non distended, non tender, bowel sounds are present CVS: Regular rate and rhythm. No murmurs, rubs or gallops Musculoskeletal: No joint or muscle tenderness Extremities: Non tender, no edema, peripheral pulses are present Neuro: Oriented, no tremors, no focal neurological deficits Skin: No rashes Results & Data ([facility]) Vital Signs (Past 12 Hours) Vital Signs Temp Pulse Pulse Resp BP Pulse Ox 10/25/21 08:09 66 135/57 L 10/25/21 07:16 62 10/25/21 04:33 64 107/44 L 10/25/21 02:40 36.6 C 70 12 127/71 98 10/24/21 23:12 36.8 C 85 18 104/69 94 Laboratory Results 10/25/21 07:11 10/25/21 03:14 WBC 7.99 RBC 3.32 L MCV 95.8 MCH 31.6 MCHC 33.0 RDW Std Deviation 55.9 H RDW Coeff of Nessa 16.0 H Plt Count 183 MPV 9.2 (1) Multiple fractures of ribs of left side Encounter type: initial encounter Fracture type: closed Qualified Code(s): S22.42XA - Multiple fractures of ribs, left side, initial encounter for closed fracture
--- NOTE | 2021-10-25 19:10 | Hospitalist Progress Note ---
Date of Service October 25, 2021 Assessment & Plan (1) Multiple fractures of ribs of left side: Plan: Multiple fractures of ribs of left side 46-year-old male with history of diabetes type 1, end-stage renal disease on hemodialysis, CHF, chronic, systolic 25% ejection fraction, hypertension, Other problems noted below presenting with back pain after sustaining a fall. Status post mechanical fall Left rib fractures posterior 9-12 ribs, posterior lateral 10th and 11th rib Left vertebral articular process fracture L4 and L5 -Continue usual Percocet as needed Dilaudid IV 0.5 mg every 4-6 hours as needed Orthopedic spine consult -Incentive spirometry Pain control -PT and OT evaluation 10/26 Repeat chest x-ray: No signs of pneumothorax or hemothorax pain gradually improving continue Prednisone 20 mg daily ordered, Tylenol 650 mg every 6 hours Continue pain control with as needed Dilaudid, oxycodone Encouraged to use incentive spirometry Denies lower back pain Outpatient follow-up for L4-L5 articular process fracture Small left pleural effusion - Hemothorax versus simple pleural effusion -Repeat chest x-ray no hemothorax, pneumothorax Hemoglobin stable Hyperkalemia End-stage renal disease on hemodialysis - HD today Diabetes mellitus type 1 -Uses Novolin 70/30 15 units 3 times a day at home -Continue NPH and insulin sliding scale Chronic systolic congestive heart failure, ejection fraction 25% V Tach episode with Syncope -occurred 10/24/2021 - in the setting of Hyper K, Cipro - Carvedilol changed to Metoprolol d/c Cipro -No recurrence of V. tach Continue metoprolol -Appears to be euvolemic -Continue Lasix, Coreg, Aspirin and Plavix R middle Finger wound - appears to be healing well Cipro discontinued Hypotension -Continue amlodipine DVT prophylaxis SCDs, early ambulation plan of care discussed with patient in detail and at length all questions answered He is understanding, agreeable, comfortable with the plan of care (2) Fracture of lumbar spine: (3) Acute hyperkalemia: Admission and Anticipated Discharge Date Admission Date: October 21, 2021 Admission and Anticipated Discharge Date Admission Date: October 21, 2021 Subjective Follow-up for rib fractures, rib pain, ESRD, etc. Seen sitting up in bed, comfortable, not in distress States left posterior lower rib pain seems to be improving gradually Has occasional dyspnea with the rib pain No recurrence of V. tach episodes since this morning no chest pain, palpitations, dizziness No other symptoms Review of Systems Review of Systems: all noted and negative except for above Physical Exam Physical Exam: General- oriented x 3, not in distress, speaks in sentences with no effort or accessory muscle use Eyes- anicteric Neck- no JVD Lungs- clear breath sounds bilaterally, no rales/wheezes Positive moderate tenderness on palpation left posterior lower ribs Heart- normal rate, regular rhythm; no murmurs Abdomen- normal bowel sounds, nondistended, soft, nontender Extremities- no pretibial edema, no calf tenderness Neuro- alert, oriented x 3; no gross focal neurologic deficits Skin- warm & dry Results & Data Results & Data ([facility]) Vital Signs (Past 12 Hours) Vital Signs Temp Pulse Pulse Pulse Resp BP BP 10/25/21 18:48 68 142/69 H 10/25/21 17:23 66 18 114/45 L 10/25/21 14:48 63 10/25/21 14:16 66 143/67 H 10/25/21 12:31 61 135/66 10/25/21 11:25 36.4 C L 59 L 111/39 L 10/25/21 11:00 58 L 74/28 L 10/25/21 10:45 59 L 88/46 L 10/25/21 10:30 59 L 77/29 L 10/25/21 10:15 60 67/23 L 10/25/21 10:00 61 75/37 L 10/25/21 09:45 61 78/34 L 10/25/21 09:30 60 69/32 L 10/25/21 09:11 59 L 80/23 L 10/25/21 09:05 43 L 10/25/21 08:09 66 135/57 L 10/25/21 07:16 62 Pulse Ox 10/25/21 18:48 10/25/21 17:23 95 10/25/21 14:48 10/25/21 14:16 10/25/21 12:31 10/25/21 11:25 10/25/21 11:00 10/25/21 10:45 10/25/21 10:30 10/25/21 10:15 10/25/21 10:00 10/25/21 09:45 10/25/21 09:30 10/25/21 09:11 10/25/21 09:05 10/25/21 08:09 10/25/21 07:16 all noted and reviewed including below (1) Multiple fractures of ribs of left side Encounter type: initial encounter Fracture type: closed Qualified Code(s): S22.42XA - Multiple fractures of ribs, left side, initial encounter for closed fracture
[2021-10-25] MEDS: ATORVASTATIN 40 MG TAB PO SCH (21:11)
[2021-10-25] MEDS: TERAZOSIN HCL 1 MG CAP PO SCH (21:12)
[2021-10-26] MEDS: HYDROmorphone INJ 0.5 MG/0.5 ML SYR IV PRN ×5 (00:30→19:33)
[2021-10-26] MEDS: ACETAMINOPHEN 325 MG TAB PO SCH ×4 (01:36→19:33)
[2021-10-26] MEDS: INSULIN ASPART PER UNIT SC SCH ×4 (08:27→20:39)
[2021-10-26] MEDS: predniSONE 20 MG TAB PO SCH (08:36)
[2021-10-26] MEDS: CLOPIDOGREL BISULFATE 75 MG TAB PO SCH (08:36)
[2021-10-26] MEDS: PANTOprazole 40 MG TAB PO SCH (08:36)
[2021-10-26] MEDS: ASPIRIN 81 MG ECTAB PO SCH (08:36)
[2021-10-26] MEDS: POLYETHYLENE (MIRALAX) 17 GM PACK PO SCH (08:37)
[2021-10-26] MEDS: LIDOCAINE 5% 1 PATCH TD SCH (08:37)
[2021-10-26] MEDS ORDERED: ISOSORBIDE MONO EXTENDED REL 30 MG TABCR PO ONE (09:17)
--- NOTE | 2021-10-26 09:18 | Cardiology Progress Note ---
Date of Service October 26, 2021 Assessment & Plan (1) Acute hyperkalemia: (2) Multiple fractures of ribs of left side: (3) HFrEF (heart failure with reduced ejection fraction): (4) Ventricular tachyarrhythmia: Plan: Sustained symptomatic ventricular tachycardia on 10/24/2021 at 02:30 in a patient with structural heart disease, in the setting of marked hyperkalemia, concurrent use of cipro, QTc prolongation. No further VT since the 6 beat run on 10/24/2021 at 16:05. RECOMMENDATIONS/PLAN: Cipro discontinued. Avoid QTc prolongation medications Carvedilol changed to metoprolol succinate 100 mg twice a day this admission. Hold off on antiarrhythmic therapy EKG to assess QT interval Decrease terazosin secondary to hypotension, to allow for a retrial of low dose Isosorbide. Outpatient cardiac catheterization at [facility], followed by EP consultation, consideration for ICD implantation. Admission and Anticipated Discharge Date Admission Date: October 21, 2021 Supervising Physician Co-Signing Physician Notes I discussed the case with Mr. Ramsay and reviewed the medical record. No significant change since yesterday. I agree with the plan as outlined above. Subjective Patient seen and examined. Chart, medications, and telemetry reviewed. Still with pain where he fell but feeling better overall. Received fluids and midodrine yesterday for hypotension. + Increase peripheral edema. No angina, tachypalpitations, worsening shortness of breath, dizziness, near syncope, or syncope, fevers, chills, melena, hematochezia, or hematuria. Telemetry: Sinus in the 60's with occasional atrial and ventricular ectopy. No further VT since the 6 beat run on 10/24/2021 at 16:05. October 25, 2021 TTE Interpretation Summary: Limited views obtained. Normal size LV. Normal LV wall thickness. Severely reduced LV systolic function. EF 20-25%. Akinesis of the anterior/anterior septal aguilar, otherwise moderate global hypokinesis Review of Systems Review of Systems: Complete Review of Systems is as stated above, negative, or noncontributory. Physical Exam Physical Exam: General: A&Ox3. NAD. HENT: Normocephalic. 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 Neck: No JVD. Heart: RRR at 62 bpm. S1 and S2 noted. No murmurs. Lungs: Clear to auscultation. Abdomen: +BS. Soft. Extremities: Healed wound on the distal portion of the right middle finger. Good right radial pulse. Left upper extremity AV fistula. Results & Data ([facility]) Vital Signs (Past 12 Hours) Vital Signs Temp Pulse Pulse Pulse Resp BP Pulse Ox 10/26/21 07:29 36.3 C L 73 18 99/63 L 96 10/26/21 04:31 36.5 C 67 12 110/44 L 95 10/26/21 00:30 117/49 L 10/25/21 22:00 36.4 C L 69 68 16 111/43 L 90 Laboratory Results Laboratory Results - last 24 hr 10/25/21 10/25/21 10/25/21 03:14 11:11 11:48 Sodium Potassium 4.5 D Chloride Carbon Dioxide Anion Gap BUN Creatinine 8.20 H* D Est Cr Clr Drug Dosing Est GFR ( Amer) Est GFR (Non-Af Amer) BUN/Creatinine Ratio Glucose 358 H* POC Glucose 152 H Calcium 10/25/21 10/25/21 10/26/21 16:13 20:10 07:27 Sodium Potassium Chloride Carbon Dioxide Anion Gap BUN Creatinine Est Cr Clr Drug Dosing Est GFR ( Amer) Est GFR (Non-Af Amer) BUN/Creatinine Ratio Glucose POC Glucose 236 H 190 H 172 H Calcium 10/26/21 08:48 Sodium Pending Potassium Pending Chloride Pending Carbon Dioxide Pending Anion Gap Pending BUN Pending Creatinine Pending Est Cr Clr Drug Dosing Pending Est GFR ( Amer) Pending Est GFR (Non-Af Amer) Pending BUN/Creatinine Ratio Pending Glucose Pending POC Glucose Calcium Pending (1) Multiple fractures of ribs of left side Encounter type: initial encounter Fracture type: closed Qualified Code(s): S22.42XA - Multiple fractures of ribs, left side, initial encounter for closed fracture
[2021-10-26 09:41] LABS: BUN Creatinine Ratio 8.3 (10-20); Calcium 8.8 mg/dl (8.5-10.1); Creatinine Clr Calc Pharmacy 13.4 ml/min; Est GFR (African American) 8.5 ml/min; Est GFR (Non-African American) 7.3 ml/min
[2021-10-26] MEDS: METOPROLOL SUCC 50MG EXT REL TAB PO SCH ×3 (11:00→20:52)
[2021-10-26] MEDS ORDERED: SODIUM CHLORIDE 0.9% 1000ML 1,000 ML IV PRN (11:22)
[2021-10-26] MEDS ORDERED: HEPARIN SOD (PORCINE) 1000 UNIT/ML IV ONE (11:22)
[2021-10-26] MEDS: FUROSEMIDE 40 MG TAB PO SCH ×2 (11:30→19:33)
[2021-10-26] MEDS: amLODIPine BESYLATE 5 MG TAB PO SCH (11:31)
--- NOTE | 2021-10-26 14:32 | Electrocardiogram Report ---
Test Reason : Blood Pressure : / mmHG Vent. Rate : 063 BPM Atrial Rate : 063 BPM P-R Int : 188 ms QRS Dur : 094 ms QT Int : 450 ms P-R-T Axes : 023 -31 143 degrees QTc Int : 460 ms Normal sinus rhythm Left axis deviation Left ventricular hypertrophy with repolarization abnormality Chronic T-wave inversion in Lateral leads Abnormal ECG When compared with ECG of 25-OCT-2021 02:37, No significant change was found Confirmed by Grayson Richardson ([id number]) on 10/26/2021 2:32:15 PM Referred By: REFERRED SELF Confirmed By:Grayson Richardson
[2021-10-26] MEDS: oxyCODONE HCL IR 5 MG TAB (IMMEDIATE RELEASE) PO PRN ×2 (14:35→22:55)
[2021-10-26] MEDS: HEPARIN SOD (PORCINE) 1000 UNIT/ML IV SCH (17:44)
--- NOTE | 2021-10-26 20:41 | Nephrology Progress Note ---
Date of Service October 26, 2021 Assessment & Plan (1) Acute hyperkalemia: Plan: Due to ESRD. admission K was 7. He was dialysed emergently on admission. K is again up to 5.7 and had 1.5 hrs HD on 1K bath yesterday -K improved today but needed HD anyway to optimize >> 3.5 hr on large dialyzer 2K no UF Low k diet, carb consistent. Patient does not want the salt restriction and is refusing to eat. Okay to add salt Daily BMP. (2) Multiple fractures of ribs of left side: Plan: Pain control per primary team. he will need prn pain meds for HD >>low threshold for CXR given lung exam > so ordered (3) ESRD (end stage renal disease) on dialysis: Plan: Patient on home hemo 4x/week. k was 7 on admission. K remains high. -Patient is tolerating dialysis well today; some adherence concerns as OP at times . Next HD Sat latest Admission and Anticipated Discharge Date Admission Date: October 21, 2021 Subjective seen on rounds this am and HD arranged. no further VT since 10/24; had to stop HD early yesterday d/t hypotension; ribs really sore Review of Systems Review of Systems: All systems reviewed & are unremarkable except as noted in Subjective Physical Exam Constitutional: well developed and well nourished; no acute distress Eyes: EOM intact bilaterally and + alignment abnormality (L eye enucleated) ENMT: Ears: no external ear abnormality Nose: no external nose abnormality Mouth: + dry oral mucous membranes Neck: no nuchal rigidity Respiratory: normal respiratory effort Auscultation: + diminished lung sounds (markedly so L base) Gastrointestinal (Abdomen): Inspection/Auscultation: normal bowel sounds Percussion/Palpation: abdomen soft; abdomen nontender Musculoskeletal: Extremities: strength 5/5 throughout Skin: no rashes, warm and dry Neurologic: hoover, fluent speech, no tremor Psychiatric: Orientation: oriented x 3 Results & Data ([facility]) Vital Signs (Past 12 Hours) Vital Signs Temp Pulse Pulse Pulse Resp BP BP 10/26/21 19:25 36.6 C 65 128/40 L 10/26/21 18:40 65 117/34 L 10/26/21 18:20 66 112/43 L 10/26/21 18:00 53 L 91/35 L 10/26/21 17:40 65 119/44 L 10/26/21 17:20 65 97/31 L 10/26/21 17:00 65 111/32 L 10/26/21 16:40 66 91/32 L 10/26/21 16:20 68 129/26 L 10/26/21 16:00 64 134/44 L 10/26/21 15:40 64 140/35 L 10/26/21 15:34 65 109/44 L 10/26/21 15:30 36.6 C 65 18 110/40 L 10/26/21 15:28 36.6 C 65 10/26/21 12:12 36.6 C 63 20 103/47 L Pulse Ox 10/26/21 19:25 95 10/26/21 18:40 10/26/21 18:20 10/26/21 18:00 10/26/21 17:40 10/26/21 17:20 10/26/21 17:00 10/26/21 16:40 10/26/21 16:20 10/26/21 16:00 10/26/21 15:40 10/26/21 15:34 10/26/21 15:30 100 10/26/21 15:28 10/26/21 12:12 97 Laboratory Results 10/25/21 03:14 10/26/21 08:48 (1) Multiple fractures of ribs of left side Encounter type: initial encounter Fracture type: closed Qualified Code(s): S22.42XA - Multiple fractures of ribs, left side, initial encounter for closed fracture
[2021-10-26] MEDS: ATORVASTATIN 40 MG TAB PO SCH (20:42)
[2021-10-26] MEDS: TERAZOSIN HCL 1 MG CAP PO SCH ×2 (20:42→20:52)
--- NOTE | 2021-10-26 22:48 | Hospitalist Progress Note ---
Date of Service October 26, 2021 Assessment & Plan (1) Multiple fractures of ribs of left side: Plan: Multiple fractures of ribs of left side 46-year-old male with history of diabetes type 1, end-stage renal disease on hemodialysis, CHF, chronic, systolic 25% ejection fraction, hypertension, Other problems noted below presenting with back pain after sustaining a fall. Status post mechanical fall Left rib fractures posterior 9-12 ribs, posterior lateral 10th and 11th rib CT lumbar showed acute fracture of the left inferior articular process of L4 and of the superior articular process of L5. Left vertebral articular process fracture L4 and L5 Continue usual Percocet as needed Dilaudid IV 0.5 mg every 4-6 hours as needed Orthopedic spine consult -Incentive spirometry Pain control -PT and OT evaluation 10/26 Repeat chest x-ray: No signs of pneumothorax or hemothorax pain gradually improving continue Prednisone 20 mg daily ordered, Tylenol 650 mg every 6 hours Continue pain control with as needed Dilaudid, oxycodone Encouraged to use incentive spirometry Denies lower back pain Outpatient follow-up for L4-L5 articular process fracture with Ortho Small left pleural effusion - Hemothorax versus simple pleural effusion -Repeat chest x-ray no hemothorax, pneumothorax Hemoglobin stable Hyperkalemia End-stage renal disease on hemodialysis Plan to get HD today K stable Diabetes mellitus type 1 -Uses Novolin 70/30 15 units 3 times a day at home -Continue NPH and insulin sliding scale Chronic systolic congestive heart failure, ejection fraction 25% V Tach episode with Syncope -occurred 10/24/2021 - in the setting of Hyper K, Cipro - Carvedilol changed to Metoprolol d/c Cipro -No recurrence of V. tach Continue metoprolol -Appears to be euvolemic -Continue Lasix, Coreg, Aspirin and Plavix R middle Finger wound - appears to be healing well Cipro discontinued Hypotension -Continue amlodipine Continue monitor BP DVT prophylaxis SCDs, early ambulation Admission and Anticipated Discharge Date Admission Date: October 21, 2021 Admission and Anticipated Discharge Date Admission Date: October 21, 2021 Subjective Pt was seen and examined for follow up of rib fracture pain Sitting at the edge of the bed with no acute distress Pt said that he feels ok He said that ribs pain increase with deep breathing He is waiting to get HD today Denies any chest pain, palpitation, dizziness and SOB Review of Systems Review of Systems: All systems reviewed & are unremarkable except as noted in Subjective Physical Exam Physical Exam: General- No acute distress Head- atraumatic Eyes- PERRL, EOMI, ENT- oropharynx clear Neck- supple, no JVD Lungs- clear to auscultation Heart- regular rhythm; no murmur Abdomen- normal bowel sounds, soft, nontender Extremities- no calf tenderness Neuro- alert, oriented x 3; PERRL, EOMI; no facial palsy; no dysarthria Skin- warm & dry Results & Data Results & Data ([facility]) Vital Signs (Past 12 Hours) Vital Signs Temp Pulse Pulse Pulse Resp BP BP 10/26/21 20:48 92/30 L 10/26/21 19:25 36.6 C 65 128/40 L 10/26/21 18:40 65 117/34 L 10/26/21 18:20 66 112/43 L 10/26/21 18:00 53 L 91/35 L 10/26/21 17:40 65 119/44 L 10/26/21 17:20 65 97/31 L 10/26/21 17:00 65 111/32 L 10/26/21 16:40 66 91/32 L 10/26/21 16:20 68 129/26 L 10/26/21 16:00 64 134/44 L 10/26/21 15:40 64 140/35 L 10/26/21 15:34 65 109/44 L 10/26/21 15:30 36.6 C 65 18 110/40 L 10/26/21 15:28 36.6 C 65 10/26/21 12:12 36.6 C 63 20 103/47 L Pulse Ox 10/26/21 20:48 10/26/21 19:25 95 10/26/21 18:40 10/26/21 18:20 10/26/21 18:00 10/26/21 17:40 10/26/21 17:20 10/26/21 17:00 10/26/21 16:40 10/26/21 16:20 10/26/21 16:00 10/26/21 15:40 10/26/21 15:34 10/26/21 15:30 100 10/26/21 15:28 10/26/21 12:12 97 (1) Multiple fractures of ribs of left side Encounter type: initial encounter Fracture type: closed Qualified Code(s): S22.42XA - Multiple fractures of ribs, left side, initial encounter for closed fracture
[2021-10-27] MEDS: HYDROmorphone INJ 0.5 MG/0.5 ML SYR IV PRN ×6 (00:36→23:05)
[2021-10-27] MEDS: ACETAMINOPHEN 325 MG TAB PO SCH ×4 (03:00→19:28)
--- NOTE | 2021-10-27 07:17 | XRay Report ---
SINGLE VIEW CHEST CLINICAL HISTORY: Left-sided rib fractures. Diminished breath sounds at the left lung base. FINDINGS: An AP, portable, upright chest radiograph is compared to study dated 10/22/2021 and correlat ed with chest CT dated 10/21/2021. The heart is enlarged. The pulmonary vasculature is noncongested. T here is a moderate left pleural effusion with left basilar atelectasis. This has significantly increa sed from previous. The right lung appears clear. No pneumothorax is seen. The bony thorax is grossly intact. Left-sided rib fractures seen by CT are not apparent on x-ray. IMPRESSION: 1. Cardiomegaly without radiographic evidence of congestive failure. 2. There is a moderate left pleural effusion with atelectasis of the left lower lung. This is new fro 10/22/2021. ACT 112: Negative or not required by law. Electronically signed by: Albin De La Rosa M.D. 10/27/2021 7:16 AM
[2021-10-27] MEDS: oxyCODONE HCL IR 5 MG TAB (IMMEDIATE RELEASE) PO PRN ×3 (07:48→16:09)
[2021-10-27] MEDS: INSULIN ASPART PER UNIT SC SCH ×4 (07:48→21:27)
[2021-10-27] MEDS: amLODIPine BESYLATE 5 MG TAB PO SCH (08:10)
[2021-10-27] MEDS: CLOPIDOGREL BISULFATE 75 MG TAB PO SCH (08:10)
[2021-10-27] MEDS: predniSONE 20 MG TAB PO SCH (08:10)
[2021-10-27] MEDS: FUROSEMIDE 40 MG TAB PO SCH ×2 (08:10→17:29)
[2021-10-27] MEDS: ASPIRIN 81 MG ECTAB PO SCH (08:10)
[2021-10-27] MEDS: PANTOprazole 40 MG TAB PO SCH (08:11)
[2021-10-27] MEDS: METOPROLOL SUCC 50MG EXT REL TAB PO SCH ×2 (08:11→21:19)
[2021-10-27] MEDS: LIDOCAINE 5% 1 PATCH TD SCH (08:12)
[2021-10-27] MEDS: POLYETHYLENE (MIRALAX) 17 GM PACK PO SCH (08:14)
[2021-10-27 08:30] LABS: BUN Creatinine Ratio 7.2 (10-20); Calcium 8.8 mg/dl (8.5-10.1); Creatinine Clr Calc Pharmacy 18.7 ml/min; Est GFR (African American) 12.2 ml/min; Est GFR (Non-African American) 10.6 ml/min
--- NOTE | 2021-10-27 11:34 | Cardiology Progress Note ---
Date of Service October 27, 2021 Assessment & Plan (1) Acute hyperkalemia: (2) Multiple fractures of ribs of left side: (3) HFrEF (heart failure with reduced ejection fraction): (4) Ventricular tachyarrhythmia: Plan: Admission following a mechanical fall with resultant multiple left sided rib fractures New moderately large left pleural effusion via October 26, 2021 chest x-ray Sustained symptomatic ventricular tachycardia on 10/24/2021 at 02:30 in a patient with structural heart disease, occurring in the setting of marked hyperkalemia, cipro, QTc prolongation. No further VT since the 6 beat run on 10/24/2021 at 16:05. Type I diabetes, end-stage renal disease on hemodialysis Systolic congestive heart failure Longstanding labile hypertension Right middle finger wound RECOMMENDATIONS/PLAN: Consider Pulmonary evaluation, RE: Left pleural effusion, ? Hemothorax. Avoid QTc prolongation medications Carvedilol changed to metoprolol succinate 100 mg twice a day this admission. Terazosin decreased to 2 mg QHS due to hypotension Imdur added. Outpatient cardiac catheterization at [facility], followed by EP consultation, consideration for ICD implantation. Admission and Anticipated Discharge Date Admission Date: October 21, 2021 Supervising Physician Co-Signing Physician Notes I reviewed the medical record and discussed the case with Mr. Ramsay. I am concerned with the results of the patient's chest x-ray from October 26. It appears like he has developed a large left pleural effusion which is of concern considering left rib fractures from a fall and ongoing dialysis with anticoagulation. I have asked pulmonary to see the patient. Subjective Patient seen and examined. Chart, medications, and telemetry reviewed. Increased pain, muscle spasms. He notes that there is no way he could go home like this. Chest x-ray last night revealed a new moderate left pleural effusion with atelectasis of the left lower lung Telemetry: Sinus in the 60's with occasional ectopy. No further VT since the 6 beat run on 10/24/2021 at 16:05. October 25, 2021 TTE Interpretation Summary: Limited views obtained. Normal size LV. Normal LV wall thickness. Severely reduced LV systolic function. EF 20-25%. Akinesis of the anterior/anterior septal aguilar, otherwise moderate global hypokinesis Review of Systems Review of Systems: Complete Review of Systems is as stated above, negative, or noncontributory. Physical Exam Physical Exam: General: A&Ox3. NAD. HENT: Normocephalic. 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 Neck: No JVD. Heart: RRR at 60 bpm. S1 and S2 noted. No murmurs. Lungs: Clear to auscultation on the right. Absent breath sounds on the left about [address] No wheeze. . Abdomen: +BS. Soft. Extremities: Healed wound on the distal portion of the right middle finger. Good right radial pulse. Left upper extremity AV fistula. Results & Data ([facility]) Vital Signs (Past 12 Hours) Vital Signs Temp Pulse Pulse Resp BP Pulse Ox 10/27/21 11:28 71 10/27/21 07:42 36.4 C L 67 16 122/49 L 93 10/27/21 03:30 36.5 C 80 14 103/72 92 Laboratory Results Laboratory Results - last 48 hr 10/25/21 10/25/21 10/25/21 11:11 11:48 16:13 Sodium Potassium 4.5 D Chloride Carbon Dioxide Anion Gap BUN Creatinine Est Cr Clr Drug Dosing Est GFR ( Amer) Est GFR (Non-Af Amer) BUN/Creatinine Ratio Glucose POC Glucose 152 H 236 H Calcium 10/25/21 10/26/21 10/26/21 20:10 07:27 08:48 Sodium 134 L Potassium 5.0 Chloride 93 L Carbon Dioxide 28 Anion Gap 13 H BUN 65 H Creatinine 7.84 H* D Est Cr Clr Drug Dosing 13.4 Est GFR ( Amer) 8.5 Est GFR (Non-Af Amer) 7.3 BUN/Creatinine Ratio 8.3 L Glucose 165 H POC Glucose 190 H 172 H Calcium 8.8 10/26/21 10/26/21 10/26/21 11:26 16:20 20:20 Sodium Potassium Chloride Carbon Dioxide Anion Gap BUN Creatinine Est Cr Clr Drug Dosing Est GFR ( Amer) Est GFR (Non-Af Amer) BUN/Creatinine Ratio Glucose POC Glucose 133 H 162 H 220 H Calcium 10/27/21 10/27/21 10/27/21 07:32 07:35 11:30 Sodium 136 Potassium 5.0 Chloride 97 L Carbon Dioxide 30 Anion Gap 9 BUN 42 H D Creatinine 5.81 H* D Est Cr Clr Drug Dosing 18.7 Est GFR ( Amer) 12.2 Est GFR (Non-Af Amer) 10.6 BUN/Creatinine Ratio 7.2 L Glucose 163 H POC Glucose 158 H 161 H Calcium 8.8 (1) Multiple fractures of ribs of left side Encounter type: initial encounter Fracture type: closed Qualified Code(s): S22.42XA - Multiple fractures of ribs, left side, initial encounter for closed fracture
[2021-10-27] MEDS: CYCLOBENZAPRINE HCL 5 MG TAB PO SCH ×2 (11:54→21:18)
--- NOTE | 2021-10-27 13:10 | Nephrology Progress Note ---
Date of Service October 27, 2021 Assessment & Plan (1) Acute hyperkalemia: Plan: Due to ESRD. admission K was 7. He was dialysed emergently on admission. K running high -K high normal today -HD tomorrow Low k diet, carb consistent ordered. Patient does not want the salt restriction and is refusing to eat. Okay to add salt Daily BMP. (2) Multiple fractures of ribs of left side: Plan: Pain control per primary team. he will need prn pain meds for HD (3) ESRD (end stage renal disease) on dialysis: Plan: Patient on home hemo 4x/week. k was 7 on admission. K remains high. -Patient is tolerating dialysis well today; some adherence concerns as OP at times . Next HD Sat latest (4) Pleural effusion: Plan: on L >> increase lasix to 120 mg bid; added FR 1.5 L; UF w/ HD tomorrow Admission and Anticipated Discharge Date Admission Date: October 21, 2021 Subjective seen on rounds this am >> rib pain uncontrolled; feels he can't go home this am w/ this pain; tolerated 1 L UF yesterday Review of Systems Review of Systems: All systems reviewed & are unremarkable except as noted in Subjective Physical Exam Constitutional: well developed and well nourished; no acute distress Eyes: EOM intact bilaterally and + alignment abnormality (L eye enucleated) ENMT: Ears: no external ear abnormality Nose: no external nose abnormality Mouth: + dry oral mucous membranes Neck: no nuchal rigidity Respiratory: normal respiratory effort Auscultation: + diminished lung sounds (markedly L base) Cardiovascular: Rate/Rhythm: regular rate and regular rhythm Extremities: + edema (trace BLE) Gastrointestinal (Abdomen): Inspection/Auscultation: normal bowel sounds Percussion/Palpation: abdomen soft; abdomen nontender Musculoskeletal: Extremities: strength 5/5 throughout Skin: no rashes, warm and dry Neurologic: hoover, fluent speech, no tremor Psychiatric: Orientation: oriented x 3 Results & Data ([facility]) Vital Signs (Past 12 Hours) Vital Signs Temp Pulse Pulse Resp BP Pulse Ox 10/27/21 12:07 36.3 C L 63 17 102/61 95 10/27/21 11:28 71 10/27/21 07:42 36.4 C L 67 16 122/49 L 93 10/27/21 03:30 36.5 C 80 14 103/72 92 Laboratory Results 10/25/21 03:14 10/27/21 07:32 (1) Multiple fractures of ribs of left side Encounter type: initial encounter Fracture type: closed Qualified Code(s): S22.42XA - Multiple fractures of ribs, left side, initial encounter for closed fracture
[2021-10-27 15:40] LABS: Basophils # (auto) 0.02 K/uL (0-0.2); Basophils % (auto) 0.2 %; Eosinophils # (auto) 0.01 K/uL (0-0.5); Eosinophils % (auto) 0.1 %; Hemoglobin 8.7 g/dL (14.0-18.0); Immature Granulocytes # (auto) 0.03 K/uL (0.00-0.02); Immature Granulocytes % (auto) 0.4 %; Lymphocytes # (auto) 0.64 K/uL (1.2-3.4); Lymphocytes % (auto) 7.9 %; Mean Corpuscular Hemoglobin 30.5 pg (25-34); Mean Corpuscular Volume 94.7 fL (80-100); Mean Platelet Volume 9.6 fL (7.4-10.4); Monocytes # (auto) 0.55 K/uL (0.11-0.59); Monocytes % (auto) 6.8 %; Neutrophils # (auto) 6.81 K/uL (1.4-6.5); Neutrophils % (auto) 84.6 %; Platelet Count 216 K/uL (130-400); RDW Coefficient of Variation 16.2 % (11.5-14.5); Red Blood Count 2.85 M/uL (4.7-6.1); White Blood Count 8.06 K/uL (4.8-10.8)
[2021-10-27 15:42] LABS: INR 1.1 (0.9-1.1); Partial Thromboplastin Ratio 0.9; Partial Thromboplastin Time 24.8 Seconds (21.0-31.0); Prothrombin Time 11.8 Seconds (9.0-12.0)
--- NOTE | 2021-10-27 15:57 | Pulmonary Consultation ---
Date of Consultation October 27, 2021 Assessment & Plan (1) Pleural effusion: (2) ESRD (end stage renal disease) on dialysis: (3) Coronary artery disease: (4) Status post coronary artery stent placement: Attending: Dr. Frazier Impression: 46-year-old male with history of type 1 diabetes mellitus with end-stage renal disease on dialysis, right forearm AV fistula, CAD with stent placement currently on Plavix clopidogrel, morbid obesity, chronic anemia. Patient sustained a fall last Sunday (6 days ago) and had 5 rib fractures without evidence of flail chest. On admission imaging did not show significant pleural effusion. Patient complained of shortness of breath and had chest x-ray done which shows a moderate to large pleural effusion on the left. Bedside ultrasound was completed and shows significant atelectatic lung as well as moderate to large pleural effusion. Images were stored in the system for review of Dr. Frazier. Lab work was completed and shows INR and APTT within normal limits. Platelet count is above 100,000. Patient has risk factor thoracentesis secondary to current use of clopidogrel but no anticoagulants. Creatinine is elevated secondary to end-stage renal disease on dialysis. Recommendations: 1. Left pleural effusion: * Most likely hemothorax secondary to traumatic fall 6 days ago with multiple rib fractures * Creatinine is 5.8 but is secondary to chronic kidney disease with end-stage renal failure secondary diabetes type 1 * Patient is on clopidogrel. This has not been stopped since that time of the fractures * Patient will most likely need a small bore chest tube with pigtail catheter with Martha Pleur-evac system * Will further discuss with Dr. Frazier develop plan for evacuation of pleural effusion 2. CAD with stent placement: * This was done 12 years ago per the report of the patient. Patient is on clopidogrel. No anticoagulants * Continue usual medications per cardiology who is on board and following the patient as a consult service 3. Tobacco abuse: * Patient denies any use of inhaled tobacco but currently uses snuff ( [place]) * Patient encouraged to abstain from tobacco abuse. 4. Social dynamic issues: * Patient is very active in his community and is involved in [place] displays and needs to be discharged Sunday morning at the latest * Discussed seriousness of possible hemothorax and sequela if not treated completely * Advised patient that we will evaluate day by day and hopefully get him home in time for his scheduled event Thank you very much for including us in the care of this patient. We will continue to follow along with you. Please refer to Dr. Frazier's addendum for further recommendations and corrections. Supervising Physician Co-Signing Physician Notes I saw and evaluated the patient with Albin Gupta, and agree with findings and plan as documented in the note. 46-year-old male past medical history of diabetes type 1, end-stage renal disease on hemodialysis, coronary artery disease on Plavix presented to the hospital with fall Patient had left-sided rib fractures. He was found to have new left-sided pleural effusion while being in the hospital Hemoglobin is also dropped approximately 3 g. Possibility of it being hemothorax is high Social history: Chews tobacco Constitutional: No acute distress HEENT: EOMI, PERRLA Respiratory system: Decreased air entry bilaterally, no wheeze, rhonchi, positive crackles bilateral lower lobes CVS: S1-S2 positive, no murmurs or gallops Abdomen: Soft, nontender, nondistended, positive bowel sounds x4, obese Extremities: +2 pulses bilaterally radialis/ dorsalis pedis, no cyanosis, no edema Neuro: Awake alert oriented x3 Psych: Normal mood and affect G/U: No Melo Plan: Given the drop in the hemoglobin, patient being on Plavix, BUN as well as cr eatinine being high The possibility of new left-sided pleural effusion after fall is hemothorax We will put a chest tube to drain the fluid. If the patient continues to bleed and there is still drop in hemoglobin, would recommend patient to be transferred to a tertiary center where they can do embolization of the artery to stop the bleed Stop Plavix Please note the above document was generated using voice recognition software. It may contain grammatical, syntax or spelling errors.Any formal questions or concerns about the content, text or information contained within the body of this dictation should be directly addressed to the provider for clarification. History of Present Illness Reason for Consultation: Traumatic pleural effusion secondary to fall with 5 rib fractures 6 days ago Attending Physician: Elisabet Schultz MD History of Present Illness Attending: Dr. 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 Patient reports that he was in the bathroom last Sunday and fell against the toilet fracturing 5 ribs in the posterior left side. CT scan was performed and showed no evidence of flail chest. Patient has very small pleural effusion at that time. Repeat chest x-ray completed reveals moderate to large left pleural effusion. Patient has had consequent drop in hemoglobin and is experiencing s ome shortness of breath. This suggest the possibility of a hemothorax. Patient states he has no significant shortness of breath. He does notice some difficulty in taking a deep breath but feels it may be secondary to rib pain. He does state that he has occasion where he feels like he cannot catch his breath but then after a few small breaths he is able to feel more comfortable. Patient was placed on supplemental oxygen for comfort with no significant hypoxia. Patient denies any fever, chills, sweats, rigors. No sputum production. He denies hemoptysis. He is currently taking Dilaudid for his pain with oxycodone for his breakthrough pain. Patient has no other acute complaints at this time. Allergies Allergy/AdvReac Type Severity Reaction Status Date / Time benzonatate Allergy Unknown told not Verified 08/23/21 01:14 to take ibuprofen Allergy Unknown told not Verified 08/23/21 01:14 to take baclofen AdvReac Severe sedation/co Verified 08/23/21 01:14 nfusion oxycodone AdvReac Intermediate Confusion Verified 08/23/21 01:14 FRED Inhibitors AdvReac Unknown Unknown Verified 08/23/21 01:14 Home Medications Medication Instructions Recorded Confirmed Type atorvastatin 40 mg tablet 40 mg PO HS 02/13/18 10/21/21 History clopidogrel 75 mg tablet 75 mg PO DAILY 02/13/18 10/21/21 History furosemide 40 mg tablet (Lasix) 40 mg PO BID 02/13/18 10/21/21 History insulin aspart U-100 100 unit/mL 0 unit SUBCUT TID PRN 02/13/18 08/23/21 History (3 mL) subcutaneous pen (Novolog Flexpen U-100 Insulin aspart) nitroglycerin 0.4 mg sublingual 0.4 mg SUBLINGUAL DIRECTED PRN 02/13/18 08/23/21 History tablet (Nitrostat) omeprazole 20 mg capsule,delayed 20 mg PO QAM 02/13/18 10/21/21 History release terazosin 2 mg capsule 4 mg PO HS 02/13/18 10/21/21 History aspirin 81 mg tablet,delayed 81 mg PO DAILY 06/10/20 10/21/21 History release hydralazine 100 mg tablet 100 mg PO BID PRN 10/14/20 08/23/21 History oxycodone-acetaminophen 5 mg-325 1 tab PO Q4H PRN 08/08/21 10/21/21 History mg tablet Epogen Inj 0 mg INJ [id number] 08/23/21 08/23/21 History amlodipine 5 mg tablet 5 mg PO DAILY 08/23/21 10/21/21 History carvedilol 25 mg tablet 25 mg PO BID #0 tab 08/24/21 10/21/21 Rx cephalexin 500 mg capsule 500 mg PO DAILY #4 cap 08/24/21 Rx oxycodone 5 mg tablet 5 mg PO Q4H PRN #5 tab 08/24/21 Rx sulfamethoxazole 800 1 tab PO UD #12 tab 08/24/21 Rx mg-trimethoprim 160 mg tablet (Bactrim DS) Novolin 70-30 FlexPen U-100 15 units SC TID 10/21/21 10/21/21 History ciprofloxacin HCl 500 mg tablet 500 mg PO DAILY 10/21/21 10/21/21 History Patient History Medical History Acute left lumbar radiculopathy Anemia Bilateral carotid artery stenosis Monitored with Carotid Doppler q6 months. 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 Carotid artery stenosis Coronary artery disease Diabetes mellitus, insulin-dependent (IDDM or type I) DM I (diabetes mellitus, type I) Dyslipidemia ESRD (end stage renal disease) on dialysis GERD (gastroesophageal reflux disease) Gout Hypertension Hypertensive urgency Labile hypertension Orthostatic hypotension Presence of artificial eye LEFT Ulcer of finger R third digit Weakness Surgical History History of discectomy LUMBAR History of eye surgery MULTIPLE EYE SURGERIES S/T COMPLICATIONS OF DIABETES INCLUDING DETACHED RETINA, DSEAK PROCEDURES, AND ENUCLEATION OF LEFT EYE Status post cardiac catheterization Status post coronary artery stent placement 2009, NO HX OF [place] [place]. Family History Other Cancer Diabetes Gallbladder disease Heart disease Hypertension Social History Smoking Status: Never smoker Tobacco Type: Smokeless Tobacco (Dip or Chew) Second Hand Exposure: No; Hx Alcohol Use: No Hx Substance Use: No Preferred Language: [place]i Communication Ability: Effective Visual Impairment: Blindness Sound Technician Supervisor Required: No Beliefs That Will Affect Care: None marital status: Current Living Situation: Spouse current occupational status: disabled Feels Safe at Home: Yes Assistive Devices: Walker Review of Systems Review of Systems: A total of 10 systems was reviewed and is negative other than as listed in the HPI Physical Exam Physical Exam: GENERAL : No acute distress EYES: No icterus, gaze conjugate NOSE: No evidence of epistaxis MOUTH: No lesions or candidiasis NECK: Supple LUNGS: Patient with some bruising in the posterior of the left back. Lidoderm patches in place. Patient has significant reduction of breath sounds at the left base. No rales, rhonchi, bronchospasm appreciated. Patient with difficulty in taking deep breaths secondary to pain. HEART: Regular, rate controlled ABDOMEN: Soft, NT, ND, BS Present EXTREMITIES: No LE edema, pedal pulses intact. Mature AV fistula in the left forearm with good bruit. NEURO: A&OX3 Results & Data Results & Data ([facility]) Vital Signs (Past 12 Hours) Vital Signs Temp Pulse Pulse Resp BP Pulse Ox 10/27/21 12:07 36.3 C L 63 17 102/61 95 10/27/21 11:28 71 10/27/21 07:42 36.4 C L 67 16 122/49 L 93 Critical Care Results & Data Vital Signs (Past 12 Hours) Vital Signs Temp Pulse Pulse Resp BP Pulse Ox 10/27/21 12:07 36.3 C L 63 17 102/61 95 10/27/21 11:28 71 10/27/21 07:42 36.4 C L 67 16 122/49 L 93 Lab & Micro Results (Past 24 Hours) RBC 2.85 M/uL (4.7-6.1) L 10/27/21 WBC 8.06 K/uL (4.8-10.8) 10/27/21 Hgb 8.7 g/dL (14.0-18.0) L 10/27/21 Hct 27.0 % (42-52) L 10/27/21 MCV 94.7 fL (80-100) 10/27/21 MCH 30.5 pg (25-34) 10/27/21 MCHC 32.2 g/dL (32-36) 10/27/21 RDW Standard Deviation 57.0 fL (36.4-46.3) H 10/27/21 RDW Coefficient of Variation 16.2 % (11.5-14.5) H 10/27/21 Plt Count 216 K/uL (130-400) 10/27/21 MPV 9.6 fL (7.4-10.4) 10/27/21 Neutrophils (%) (Auto) 84.6 % 10/27/21 Lymphocytes (%) (Auto) 7.9 % 10/27/21 Monocytes # (Auto) 0.55 K/uL (0.11-0.59) 10/27/21 Eosinophils # (Auto) 0.01 K/uL (0-0.5) 10/27/21 Immature Granulocyte % (Auto) 0.4 % 10/27/21 Neutrophils # (Auto) 6.81 K/uL (1.4-6.5) H 10/27/21 Lymphocytes # (Auto) 0.64 K/uL (1.2-3.4) L 10/27/21 Monocytes # (Auto) 0.55 K/uL (0.11-0.59) 10/27/21 Eosinophils # (Auto) 0.01 K/uL (0-0.5) 10/27/21 Basophils # (Auto) 0.02 K/uL (0-0.2) 10/27/21 Immature Granulocyte # (Auto) 0.03 K/uL (0.00-0.02) H 10/27/21 Na 136 mmol/L (136-145) 10/27/21 K 5.0 mmol/L (3.5-5.1) 10/27/21 Cl 97 mmol/L (98-107) L 10/27/21 CO2 30 mmol/L (21-32) 10/27/21 Anion Gap 9 (3-11) 10/27/21 BUN 42 mg/dl (6-23) H 10/27/21 Creatinine 5.81 mg/dl (0.6-1.4) H* 10/27/21 Estimated GFR ( Amer) 12.2 ml/min 10/27/21 Estimated GFR (Non-Af Amer) 10.6 ml/min 10/27/21 BUN/Creatinine Ratio 7.2 (10-20) L 10/27/21 Glu 163 mg/dl (70-99(Fasting)) H 10/27/21 Ca 8.8 mg/dl (8.5-10.1) 10/27/21 Calcium Level 8.8 mg/dl (8.5-10.1) 10/27/21 07:32 10/27/21 Prothromb Time International Ratio 1.1 (0.9-1.1) 10/27/21 14:56 10/27/21 Diagnostic Findings (Past 24 Hours) Chest X-Ray 10/26/21 21:00 SINGLE VIEW CHEST CLINICAL HISTORY: Left-sided rib fractures. Diminished breath sounds at the left lung base. FINDINGS: An AP, portable, upright chest radiograph is compared to study dated 10/22/2021 and correlated with chest CT dated 10/21/2021. The heart is enlarged. The pulmonary vasculature is noncongested. There is a moderate left pleural effusion with left basilar atelectasis. This has significantly increased from previous. The right lung appears clear. No pneumothorax is seen. The bony thorax is grossly intact. Left-sided rib fractures seen by CT are not apparent on x- ray. IMPRESSION: 1. Cardiomegaly without radiographic evidence of congestive failure. 2. There is a moderate left pleural effusion with atelectasis of the left lower lung. This is new from 10/22/2021. ACT 112: Negative or not required by law. Electronically signed by: Albin De La Rosa M.D. 10/27/2021 7:16 AM I & O Totals 24 Hours 10/26/21 10/27/21 10/28/21 06:59 06:59 06:59 Intake Total 400 / 400 700 / 700 Output Total 200 / 200 100 / 100 Balance 200 / 200 600 / 600 Cumulative 10/21/21 11:34 thru 10/27/21 06:37 Intake Total 2205 Output Total 850 Balance 1355 RT Ventilator Mngmt (Last Documented) Ventilator Ordered Settings Respiratory Rate 17 10/27/21 12:07 Ventilator - PT Measurements Respiratory Rate 17 PG Care Time/CCT Total # of Minutes Spent Total Time Spent with Patient: Total time spent is greater than 50% in coordination of care (as documented) at patient's floor/unit and/or counseling patient: 50 minutes including discussion with patient's who was in the room. Coding Level of Care Code 55528 Inpt Consult Level 5 Diagnoses Pleural effusion J90 ESRD (end stage renal disease) on dialysis N18.6; Z99.2 Coronary artery disease I25.10 Status post coronary artery stent placement Z95.5
[2021-10-27] MEDS ORDERED: LIDOCAINE 1% LOCAL 20 ML VIAL ONE (16:02)
[2021-10-27 16:10] LABS: Mean Corpuscular Hgb Conc 32.2 g/dL (32-36)
[2021-10-27] MEDS ORDERED: HEPARIN SOD (PORCINE) 1000 UNIT/ML ONE (16:49)
--- NOTE | 2021-10-27 17:21 | XRay Report ---
XR chest 1V portable CLINICAL HISTORY: S/P Left Chest tube TECHNIQUE: Single frontal radiograph of the chest was obtained. Comparison: Comparison is made to chest radiograph 11/25/2021 FINDINGS: Interval placement of a left chest tube. The cardiomediastinal silhouette is stable. Lungs are clear apart from the left lower lung, as before. A moderate left pleural effusion has minimally decreased i n size from prior exam. No evidence of pneumothorax. IMPRESSION: Satisfactory appearance of left chest tube with minimal decrease in size of left pleural effusion. No pneumothorax is seen. ACT 112: Negative or not required by law. Electronically signed by: Hema Matta M.D. 10/27/2021 5:20 PM
[2021-10-27 17:37] LABS: Total Protein Pleural Fluid 4.9 gm/dl
--- NOTE | 2021-10-27 17:52 | Procedure Note ---
Procedure Note Date of Service October 27, 2021 Note Procedure: Pigtail chest tube insertion [facility] Administrator: Dr. Babita Frazier Indication: Left sided pleural effusion with likely Hemothorax Consent: Signed by patient and verified with timeout prior to procedure Anesthesia: 1% lidocaine without epinephrine local Procedure: Consent was verified and timeout performed. Appropriate imaging studies were reviewed prior to the procedure. Patient was placed in a seated position. Appropriate site above the diaphragm on the Left midaxillary line fourth intercostal space for chest tube insertion was selected. The skin was prepped and draped in normal sterile fashion. Lidocaine was used for local analgesia. Fluid was aspirated via the finder needle. A small skin brenden was made with the scalpel and the catheter over the needle apparatus was advanced over the rib into the pleural space. With the help of guidewire and Seldinger technique, 14 [place] pigtail catheter was inserted and connected to Pleur-evac. 1600ml of hemorrhagic fluid was drained right away. No air leak appreciated after that. Chest x-ray to follow Fluid was sent for labs, culture and cytology. The patient tolerated the procedure without obvious complication Complications: None Blood loss: Less than 2 cc. Coding CPT Codes Pulmonary/Thoracic - Pulmonary and Thoracic: 92674 Tube thoracostomy ([id number]) Pulmonary/Thoracic - Pulmonary and Thoracic: 30220 Pleural drainage w/imaging ([id number]) Pulmonary/Thoracic - Pulmonary and Thoracic: 42791 US, Chest, real time with imaging documentation ([id number]) [facility] [place] Codes (Charges) Pulmonary/Thoracic Procedure 1: Pulmonary and Thoracic: 68638 Tube thoracostomy Procedure 2: Pulmonary and Thoracic: 54763 Pleural drainage w/imaging Procedure 3: Pulmonary and Thoracic: 55797 US, Chest, real time with imaging documentation
[2021-10-27 19:08] LABS: Appearance Pleural Fluid BLOODY; Basophils, Fluid 0 %; Color Pleural Fluid Red; Eosinophils, Fluid 2 %; Lymphocytes, Fluid 7 %; Mono,Macrophage,Mesothelial 56 %; Neutrophils, Fluid 35 %; RBC Pleural Fluid (A) 2723000 /uL; Source Pleural Fluid LEFT LUNG; WBC Pleural Fluid (A) 2322 /uL
--- NOTE | 2021-10-27 19:09 | Hospitalist Progress Note ---
Date of Service October 27, 2021 Assessment & Plan (1) Multiple fractures of ribs of left side: Plan: Multiple fractures of ribs of left side 46-year-old male with history of diabetes type 1, end-stage renal disease on hemodialysis, CHF, chronic, systolic 25% ejection fraction, hypertension, Other problems noted below presenting with back pain after sustaining a fall. Status post mechanical fall Left rib fractures posterior 9-12 ribs, posterior lateral 10th and 11th rib CT lumbar showed acute fracture of the left inferior articular process of L4 and of the superior articular process of L5. Left vertebral articular process fracture L4 and L5 Continue usual Percocet as needed Dilaudid IV 0.5 mg every 4-6 hours as needed Orthopedic spine consulted continue Prednisone 20 mg daily ordered, Tylenol 650 mg every 6 hours, Felexril 5mg BID adding Continue pain control with as needed Dilaudid, oxycodone Encouraged to use incentive spirometry Outpatient follow-up for L4-L5 articular process fracture with Ortho PT and OT evaluation Left pleural effusion CXR on 10/26 showed moderate left pleural effusion with atelectasis of the left lower lung. This is new from 10/22/2021. S/P Pigtail chest tube insertion for the Left sided pleural effusion with likely Hemothorax performed by Dr. Frazier 1600ml of hemorrhagic fluid was drained Hemoglobin dropped to 8.7 Continue monitor H/H If hgb continues trending down, might need to transfer to a tertiary care to eval by IR for embolization Continue monitor H/H Hyperkalemia End-stage renal disease on hemodialysis Plan to HD tomorrow K stable Diabetes mellitus type 1 -Uses Novolin 70/30 15 units 3 times a day at home -Continue NPH and insulin sliding scale Chronic systolic congestive heart failure, ejection fraction 25% V Tach episode with Syncope -occurred 10/24/2021 - in the setting of Hyper K, Cipro - Carvedilol changed to Metoprolol d/c Cipro -No recurrence of V. tach Continue metoprolol -Appears to be euvolemic -Continue Lasix, Coreg, Aspirin and Plavix R middle Finger wound - appears to be healing well Cipro discontinued Hypotension -Continue amlodipine Continue monitor BP DVT prophylaxis SCDs/Ambulation Admission and Anticipated Discharge Date Admission Date: October 21, 2021 Admission and Anticipated Discharge Date Admission Date: October 21, 2021 Subjective Pt was seen and examined for follow up of rib fracture pain Sitting at the edge of the bed with no acute distress Pt said that he had a lot of pain early today He said that ribs pain increase with deep breathing S/P Pigtail chest tube insertion for the Left sided pleural effusion with likely Hemothorax performed by Dr. Frazier Denies any chest pain, palpitation, dizziness and SOB Review of Systems Review of Systems: All systems reviewed & are unremarkable except as noted in Subjective Physical Exam Physical Exam: General- No acute distress Head- atraumatic Eyes- PERRL, EOMI, ENT- oropharynx clear Neck- supple, no JVD Lungs- clear to auscultation Heart- regular rhythm; no murmur Abdomen- normal bowel sounds, soft, nontender Extremities- no calf tenderness Neuro- alert, oriented x 3; PERRL, EOMI; no facial palsy; no dysarthria Skin- warm & dry Results & Data Results & Data ([facility]) Vital Signs (Past 12 Hours) Vital Signs Temp Pulse Pulse Pulse Resp BP Pulse Ox 10/27/21 16:03 36.3 C L 62 18 121/48 L 98 10/27/21 12:07 36.3 C L 63 17 102/61 95 10/27/21 11:28 71 10/27/21 07:42 36.4 C L 67 16 122/49 L 93 (1) Multiple fractures of ribs of left side Encounter type: initial encounter Fracture type: closed Qualified Code(s): S22.42XA - Multiple fractures of ribs, left side, initial encounter for closed fracture
[2021-10-27] MEDS ORDERED: HYDROmorphone INJ 0.5 MG/0.5 ML SYR IV STA (19:52)
[2021-10-27] MEDS: ATORVASTATIN 40 MG TAB PO SCH (21:18)
[2021-10-27] MEDS: TERAZOSIN HCL 1 MG CAP PO SCH (21:20)
[2021-10-27 21:36] LABS: Hematocrit (blood only) 25.6 % (42-52); Hemoglobin 8.5 g/dL (14.0-18.0)
[2021-10-28] MEDS: HYDROmorphone INJ 0.5 MG/0.5 ML SYR IV PRN ×4 (01:57→22:03)
[2021-10-28] MEDS: ACETAMINOPHEN 325 MG TAB PO SCH ×4 (01:57→20:50)
[2021-10-28 03:33] LABS: Hemoglobin 8.5 g/dL (14.0-18.0)
[2021-10-28] MEDS: oxyCODONE HCL IR 5 MG TAB (IMMEDIATE RELEASE) PO PRN ×3 (03:35→12:52)
[2021-10-28] MEDS: INSULIN ASPART PER UNIT SC SCH ×4 (07:48→20:51)
[2021-10-28] MEDS ORDERED: SODIUM CHLORIDE 0.9% 1000ML 1,000 ML IV PRN (07:48)
[2021-10-28] MEDS ORDERED: EPOETIN ALFA 20,000 UNITS/ML VIAL IV SCH (08:00)
--- NOTE | 2021-10-28 08:25 | XRay Report ---
SINGLE VIEW CHEST CLINICAL HISTORY: Follow-up chest tube. FINDINGS: An AP, portable, upright chest radiograph is compared to study dated 10/27/2021 and correlat ed with chest CT dated 10/21/2021. The heart is enlarged. The pulmonary vasculature is noncongested. A left-sided chest tube is unchanged in position. There is a small residual left pleural effusion with left basilar consolidation. No pneumothorax is seen. The bony thorax is grossly intact. Left-sided r ib fractures seen by CT are not apparent on x-ray. IMPRESSION: 1. Cardiomegaly without radiographic evidence of congestive failure. 2. A left-sided chest tube is unchanged in position. There is a small residual left pleural effusion with left basilar consolidation. The pleural effusion has significantly decreased in size from yester day. ACT 112: Negative or not required by law. Electronically signed by: Albin De La Rosa M.D. 10/28/2021 8:24 AM
[2021-10-28] MEDS: amLODIPine BESYLATE 5 MG TAB PO SCH (08:45)
[2021-10-28] MEDS: ASPIRIN 81 MG ECTAB PO SCH (08:45)
[2021-10-28] MEDS: FUROSEMIDE 40 MG TAB PO SCH ×3 (08:46→16:52)
[2021-10-28] MEDS: CYCLOBENZAPRINE HCL 5 MG TAB PO SCH (08:47)
[2021-10-28] MEDS: METOPROLOL SUCC 50MG EXT REL TAB PO SCH ×2 (08:48→20:51)
[2021-10-28] MEDS: LIDOCAINE 5% 1 PATCH TD SCH (08:48)
[2021-10-28] MEDS: predniSONE 20 MG TAB PO SCH (08:49)
[2021-10-28] MEDS: PANTOprazole 40 MG TAB PO SCH (08:49)
[2021-10-28] MEDS: POLYETHYLENE (MIRALAX) 17 GM PACK PO SCH (08:54)
[2021-10-28 09:37] LABS: Hemoglobin 8.4 g/dL (14.0-18.0)
--- NOTE | 2021-10-28 10:12 | Cardiology Progress Note ---
Date of Service October 28, 2021 Assessment & Plan (1) Acute hyperkalemia: (2) Multiple fractures of ribs of left side: (3) HFrEF (heart failure with reduced ejection fraction): (4) Ventricular tachyarrhythmia: Plan: Admission following a mechanical fall with resultant multiple left sided rib fractures, left sided hemothorax status post 10/27/2021 chest tube placement as detailed above. Sustained symptomatic ventricular tachycardia on 10/24/2021 at 02:30 AM occurring in the setting of structural heart disease, marked hyperkalemia, cipro use, QTc prolongation. No further VT since a 6 beat run on 10/24/2021 at 16:05. Type I diabetes, end-stage renal disease on hemodialysis Systolic congestive heart failure Longstanding labile hypertension Right middle finger wound RECOMMENDATIONS/PLAN: Avoid QTc prolongation medications. Resume Clopidogrel when safe (prescribed primarily due to the surgical grade internal carotid artery disease) Carvedilol changed to metoprolol succinate 100 mg twice a day this admission. Imdur added. Terazosin discontinued. Outpatient cardiac catheterization was scheduled at [facility] on 11/08/2021; this will be postponed until he recovers from the insults associated with the mechanical fall. Eventual Electrophysiology consultation, consideration for ICD implantation. Admission and Anticipated Discharge Date Admission Date: October 21, 2021 Supervising Physician Co-Signing Physician Notes Supervising Physician Attestation: I have personally performed a history and physical examination on the patient. I agree with the physician early childhood assistant's findings and plan as documented with the following additions. Subjective: Patient's most significant subjective complaint is ongoing left-sided chest wall/rib pain. Chest tube in place. Telemetry reveals sinus rhythm. Exam: Pulmonary: Mildly reduced breath sounds at the left base Cardiovascular: Regular rhythm, no murmurs, 1+ lower extremity edema Neurologic: Chronic visual impairment, no focal deficits Data: EKG performed 10/26/2021 11:01 AM, tracing reviewed independently, sinus rhythm at 63 bpm, corrected QT interval improved 460 ms, lateral repolarization changes noted. Assessment and Plan: Complex problem list as noted in Mr. Ramsay's note. -Continue aspirin, hold clopidogrel. -Continue metoprolol. -Medical management for cardiomyopathy limited by hypotension and hyperkalemia. Not a candidate for FRED inhibitor, angiotensin receptor bibiana, Entresto. DVT prophylaxis: Pharmacologic DVT prophylaxis on hold pleural effusion, chest tube. Gaston Lechuga DO Subjective Patient seen and examined. Chart, medications, and telemetry reviewed. Status post October 27, 2021 14 Yemeni pigtail chest tube insertion by Dr. Babita Frazier with removal of 1600 mL of hemorrhagic fluid drained immediately. Clopidogrel held, prescribed for the surgical grade internal carotid artery disease (managing medically per Vascular Surgery documentation) He remains on aspirin appropriately. Pain is better controlled. For dialysis today. BP low in the morning. No angina. No palpitations. Breathing OK. + Edema. Telemetry: Sinus in the 60's with rare ectopy. Review of Systems Review of Systems: Complete Review of Systems is as stated above, negative, or noncontributory. Physical Exam Physical Exam: General: A&Ox3. NAD. HENT: Normocephalic. 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 Neck: No JVD. Heart: RRR at 60 bpm. S1 and S2 noted. No murmurs. Chest: Left sided chest tube. Lungs: Diminished. Clear to auscultation on the right. Decreased breath sounds at the very distal left base; overall with improved aeration. No wheeze. Abdomen: +BS. Soft. Extremities: Healed wound on the distal portion of the right middle finger. Good right radial pulse. Left upper extremity AV fistula. Results & Data ([facility]) Vital Signs (Past 12 Hours) Vital Signs Temp Pulse Pulse Resp BP Pulse Ox 10/28/21 07:21 36.4 C L 73 20 128/73 91 10/28/21 03:13 36.5 C 62 18 130/76 96 10/28/21 00:00 60 10/27/21 23:13 36.6 C 61 18 123/68 97 Laboratory Results Laboratory Results - last 24 hr 10/27/21 10/27/21 10/27/21 11:30 14:56 14:56 WBC 8.06 RBC 2.85 L Hgb 8.7 L Hct 27.0 L MCV 94.7 MCH 30.5 MCHC 32.2 RDW Std Deviation 57.0 H RDW Coeff of Nessa 16.2 H Plt Count 216 MPV 9.6 Immature Gran % (Auto) 0.4 Neut % (Auto) 84.6 Lymph % (Auto) 7.9 [place] % (Auto) 6.8 Eos % (Auto) 0.1 Baso % (Auto) 0.2 Neut # (Auto) 6.81 H Lymph # (Auto) 0.64 L [place] # (Auto) 0.55 Eos # (Auto) 0.01 Baso # (Auto) 0.02 Immature Gran # (Auto) 0.03 H PT 11.8 INR 1.1 APTT 24.8 PTT Ratio 0.9 POC Glucose 161 H Fluid Neutrophils % Fluid Lymphocytes % Fluid Eosinophils % Fluid Basophils % Fluid Meso/Macro/[place] % Fluid Comment Pleural Fluid Source Pleural Color Pleural Appearance Pleural pH Pleural WBC Pleural RBC Pleural Total Protein Pleural LDH Pleural Glucose Pleural Amylase Pleural Cholesterol 10/27/21 10/27/21 10/27/21 17:00 17:00 17:00 WBC RBC Hgb Hct MCV MCH MCHC RDW Std Deviation RDW Coeff of Nessa Plt Count MPV Immature Gran % (Auto) Neut % (Auto) Lymph % (Auto) [place] % (Auto) Eos % (Auto) Baso % (Auto) Neut # (Auto) Lymph # (Auto) [place] # (Auto) Eos # (Auto) Baso # (Auto) Immature Gran # (Auto) PT INR APTT PTT Ratio POC Glucose Fluid Neutrophils % 35 Fluid Lymphocytes % 7 Fluid Eosinophils % 2 Fluid Basophils % 0 Fluid Meso/Macro/[place] % 56 Fluid Comment Pleural Fluid Source LEFT LUNG Pleural Color Red Pleural Appearance BLOODY Pleural pH 7.26 L Pleural WBC 2322 Pleural RBC [id number] Pleural Total Protein 4.9 Pleural LDH 288 Pleural Glucose 138 Pleural Amylase 29 Pleural Cholesterol 10/27/21 10/27/21 10/27/21 17:00 17:44 17:50 WBC RBC Hgb Hct 26.6 L MCV MCH MCHC RDW Std Deviation RDW Coeff of Nessa Plt Count MPV Immature Gran % (Auto) Neut % (Auto) Lymph % (Auto) [place] % (Auto) Eos % (Auto) Baso % (Auto) Neut # (Auto) Lymph # (Auto) [place] # (Auto) Eos # (Auto) Baso # (Auto) Immature Gran # (Auto) PT INR APTT PTT Ratio POC Glucose 186 H Fluid Neutrophils % Fluid Lymphocytes % Fluid Eosinophils % Fluid Basophils % Fluid Meso/Macro/[place] % Fluid Comment Pleural Fluid Source Pleural Color Pleural Appearance Pleural pH Pleural WBC Pleural RBC Pleural Total Protein Pleural LDH Pleural Glucose Pleural Amylase Pleural Cholesterol Pending 10/27/21 10/27/21 10/28/21 20:31 21:06 03:18 WBC RBC Hgb 8.5 L 8.5 L Hct 25.6 L 26.0 L MCV MCH MCHC RDW Std Deviation RDW Coeff of Nessa Plt Count MPV Immature Gran % (Auto) Neut % (Auto) Lymph % (Auto) [place] % (Auto) Eos % (Auto) Baso % (Auto) Neut # (Auto) Lymph # (Auto) [place] # (Auto) Eos # (Auto) Baso # (Auto) Immature Gran # (Auto) PT INR APTT PTT Ratio POC Glucose 165 H Fluid Neutrophils % Fluid Lymphocytes % Fluid Eosinophils % Fluid Basophils % Fluid Mes[place]/Macro/[place] % Fluid Comment Pleural Fluid Source Pleural Color Pleural Appearance Pleural pH Pleural WBC Pleural RBC Pleural Total Protein Pleural LDH Pleural Glucose Pleural Amylase Pleural Cholesterol 10/28/21 10/28/21 07:18 09:02 WBC RBC Hgb 8.4 L Hct 26.0 L MCV MCH MCHC RDW Std Deviation RDW Coeff of Nessa Plt Count MPV Immature Gran % (Auto) Neut % (Auto) Lymph % (Auto) [place] % (Auto) Eos % (Auto) Baso % (Auto) Neut # (Auto) Lymph # (Auto) [place] # (Auto) Eos # (Auto) Baso # (Auto) Immature Gran # (Auto) PT INR APTT PTT Ratio POC Glucose 173 H Fluid Neutrophils % Fluid Lymphocytes % Fluid Eosinophils % Fluid Basophils % Fluid Meso/Macro/[place] % Fluid Comment Pleural Fluid Source Pleural Color Pleural Appearance Pleural pH Pleural WBC Pleural RBC Pleural Total Protein Pleural LDH Pleural Glucose Pleural Amylase Pleural Cholesterol (1) Multiple fractures of ribs of left side Encounter type: initial encounter Fracture type: closed Qualified Code(s): S22.42XA - Multiple fractures of ribs, left side, initial encounter for closed fracture
--- NOTE | 2021-10-28 10:54 | Nephrology Progress Note ---
Date of Service October 28, 2021 Assessment & Plan (1) ESRD (end stage renal disease) on dialysis: Plan: Patient on home hemo 4x/week. k was 7 on admission. K remains high. -Patient is tolerating dialysis today though UF may be a challenge; some adherence concerns as OP at times . Next HD Sun at latest (2) Pleural effusion: Plan: hemothorax in setting of rib fractures/trauma, plavix; in theory may have contribution from heparin w/ HD -no further heparin w/ HD -will lower lasix rx back to prior OP rx 40 mg bid (3) Acute hyperkalemia: Plan: Due to ESRD. admission K was 7. He was dialysed emergently on admission. K running high -K high normal yesterday -HDtoday ; repeat K requested Low k diet, carb consistent ordered. Patient does not want the salt restriction and is refusing to eat. Okay to add salt for now Daily BMP. (4) Multiple fractures of ribs of left side: Plan: Pain control per primary team. he will need prn pain meds for HD; no heparin w/ HD d/t hemothorax Admission and Anticipated Discharge Date Admission Date: October 21, 2021 Subjective seen on rounds at 0745; L chest tube placed yesterday for hemothorax; plavix st opped; hgb stable since last evening but concern if drops further may need embolization procedure/tertiary care. pt c/o ongoing rib/back pain, no sob, no anterior chest pain/palpitations; no n/v; feels edema improving Review of Systems Review of Systems: All systems reviewed & are unremarkable except as noted in Subjective Physical Exam Constitutional: well developed and well nourished; no acute distress Eyes: EOM intact bilaterally and + alignment abnormality (L eye enucleated) ENMT: Ears: no external ear abnormality Nose: no external nose abnormality Mouth: + dry oral mucous membranes Neck: no nuchal rigidity Respiratory: normal respiratory effort Auscultation: + diminished lung sounds (markedly L base) L chest tube w/ serosang drainage Cardiovascular: Rate/Rhythm: regular rate and regular rhythm Extremities: + edema (trace BLE) Gastrointestinal (Abdomen): Inspection/Auscultation: normal bowel sounds Percussion/Palpation: abdomen soft; abdomen nontender Musculoskeletal: Extremities: strength 5/5 throughout Skin: no rashes, warm and dry Neurologic: hoover, fluent speech, no tremor Psychiatric: Orientation: oriented x 3 Results & Data ([facility]) Vital Signs (Past 12 Hours) Vital Signs Temp Pulse Pulse Pulse Resp BP BP 10/28/21 10:30 61 93/36 L 10/28/21 10:14 36.8 C 61 10/28/21 07:21 36.4 C L 73 20 128/73 10/28/21 03:13 36.5 C 62 18 130/76 10/28/21 00:00 60 10/27/21 23:13 36.6 C 61 18 123/68 Pulse Ox 10/28/21 10:30 10/28/21 10:14 10/28/21 07:21 91 10/28/21 03:13 96 10/28/21 00:00 10/27/21 23:13 97 Laboratory Results 10/28/21 09:02 10/27/21 07:32 (1) Multiple fractures of ribs of left side Encounter type: initial encounter Fracture type: closed Qualified Code(s): S22.42XA - Multiple fractures of ribs, left side, initial encounter for closed f racture
--- NOTE | 2021-10-28 15:25 | Pulmonology Progress Note ---
Date of Service October 28, 2021 Assessment & Plan (1) Pleural effusion: (2) ESRD (end stage renal disease) on dialysis: (3) Coronary artery disease: (4) Status post coronary artery stent placement: Plan: Attending: Dr. Frazier Impression: 46-year-old male with history of type 1 diabetes mellitus with end-stage renal disease on dialysis, right forearm AV fistula, CAD with stent placement currently on Plavix clopidogrel, morbid obesity, chronic anemia. Patient sustained a fall last Sunday (6 days ago) and had 5 rib fractures without evidence of flail chest. On admission imaging did not show significant pleural effusion. Patient complained of shortness of breath and had chest x-ray done which shows a moderate to large pleural effusion on the left. A 14 [place]ic skater pigtail catheter was placed in the left pleural space by Dr. Frazier on 10/27/2021. Patient continues to remain on suction at -20 mmHg. Recommendations: 1. Left pleural effusion: * Hemothorax most likely secondary to traumatic fall 6 days ago with multiple rib fractures * Left-sided pigtail catheter placed 10/27/2020 afternoon. * Continue to hold clopidogrel until we are sure that patient has no more bleeding to the chest. * Hemoglobin remained stable. Significant decrease in outflow from chest tube * Continue chest tube at -20 cm of water with continuous suction. We will reevaluate chest x-ray and patient's clinical condition tomorrow morning. * Hopefully we can discontinue the chest tube tomorrow. 2. CAD with stent placement: * This was done 12 years ago per the report of the patient. Patient is on clopidogrel for a high-grade aortic stenosis. No anticoagulants * Continue usual medications per cardiology who is on board and following the patient as a consult service 3. Tobacco abuse: * Patient denies any use of inhaled tobacco but currently uses snuff ([place] ) * Patient encouraged to abstain from tobacco abuse. 4. Social dynamic issues: * Patient is very active in his community and is involved in [employer] displays and needs to be discharged Sunday morning at the latest * Discussed seriousness of possible hemothorax and sequela if not treated completely * Advised patient that we will evaluate day by day and hopefully get him home in time for his scheduled event Thank you very much for including us in the care of this patient. We will continue to follow along with you. Admission and Anticipated Discharge Date Admission Date: October 21, 2021 Supervising Physician Co-Signing Physician Notes I saw and evaluated the patient with Albin Gupta, and agree with findings and plan as documented in the note. Patient seen and examined at bedside. No acute distress, no deficits overnight. Denies any chest discomfort. The chest tube is showing clear drainage now. H&H has stabilized Denies any chest pain. Shortness of breath is improved. Social history: Chews tobacco Constitutional: No acute distress HEENT: EOMI, PERRLA Respiratory system: Decreased air entry bilaterally, no wheeze, rhonchi, positive crackles bilateral lower lobes CVS: S1-S2 positive, no murmurs or gallops Abdomen: Soft, nontender, nondistended, positive bowel sounds x4, obese Extremities: +2 pulses bilaterally radialis/ dorsalis pedis, no cyanosis, no edema Neuro: Awake alert oriented x3 Psych: Normal mood and affect G/U: No Melo Plan: S/p left-sided chest tube placement 10/27/2021 The pleural fluid was correlating with hemothorax. The fluid has been clearing up. It is okay to put the chest tube on waterseal later today. Abnormal chest x-ray tomorrow if there is no significant fluid and no pneumothorax it could be removed. Will still recommend to hold Plavix for at least 5 days and then can resume. Please note the above document was generated using voice recognition software. It may contain grammatical, syntax or spelling errors.Any formal questions or concerns about the content, text or information contained within the body of this dictation should be directly addressed to the provider for clarification. Subjective Attending: Dr. Frazier Patient seen and examined in the dialysis lab. Chest tube is well secured. He continues to drain sanguinous fluid but considerably less volume. Patient drained 180 cc overnight. He has drained 70 cc as of 11:00 this morning. There is no airleak in the chamber. Patient states that his breathing seems to be improved. He continues to have significant pain from his multiple rib fr actures. No hemoptysis. No fever. No other pulmonary complaints. Review of Systems Review of Systems: A total of 10 systems was reviewed and is negative other than as listed above in the HPI Physical Exam Physical Exam: GENERAL : No acute distress EYES: No icterus, gaze conjugate NOSE: No evidence of epistaxis MOUTH: No lesions or candidiasis NECK: Supple LUNGS: CTA B/L, no wheezes, rales or rhonchi. Breath sounds are equal at the bases. Chest tube is secure. Dressing is dry and intact. HEART: Regular, rate controlled ABDOMEN: Soft, NT, ND, BS Present EXTREMITIES: No LE edema, pedal pulses intact NEURO: A&OX3 Results & Data Results & Data ([facility]) Vital Signs (Past 12 Hours) Vital Signs Temp Pulse Pulse Pulse Resp BP BP 10/28/21 15:13 36.4 C L 64 19 89/39 L 10/28/21 13:56 36.8 C 63 123/86 10/28/21 13:30 69 119/57 L 10/28/21 13:00 59 L 121/65 10/28/21 12:30 57 L 94/51 L 10/28/21 12:00 64 98/42 L 10/28/21 11:30 60 86/30 L 10/28/21 11:00 62 92/39 L 10/28/21 10:30 61 93/36 L 10/28/21 10:14 36.8 C 61 10/28/21 07:21 36.4 C L 73 20 128/73 10/28/21 06:15 57 L Pulse Ox 10/28/21 15:13 94 10/28/21 13:56 10/28/21 13:30 10/28/21 13:00 10/28/21 12:30 10/28/21 12:00 10/28/21 11:30 10/28/21 11:00 10/28/21 10:30 10/28/21 10:14 10/28/21 07:21 91 10/28/21 06:15 Critical Care Results & Data Vital Signs (Past 12 Hours) Vital Signs Temp Pulse Pulse Pulse Resp BP BP 10/28/21 15:13 36.4 C L 64 19 89/39 L 10/28/21 13:56 36.8 C 63 123/86 10/28/21 13:30 69 119/57 L 10/28/21 13:00 59 L 121/65 10/28/21 12:30 57 L 94/51 L 10/28/21 12:00 64 98/42 L 10/28/21 11:30 60 86/30 L 10/28/21 11:00 62 92/39 L 10/28/21 10:30 61 93/36 L 10/28/21 10:14 36.8 C 61 10/28/21 07:21 36.4 C L 73 20 128/73 10/28/21 06:15 57 L Pulse Ox 10/28/21 15:13 94 10/28/21 13:56 10/28/21 13:30 10/28/21 13:00 10/28/21 12:30 10/28/21 12:00 10/28/21 11:30 10/28/21 11:00 10/28/21 10:30 10/28/21 10:14 10/28/21 07:21 91 10/28/21 06:15 Lab & Micro Results (Past 24 Hours) Hgb 8.4 g/dL (14.0-18.0) L 10/28/21 Hct 26.0 % (42-52) L 10/28/21 No Data to Display No Data to Display Microbiology 10/27/21 17:00 Gram Stain - Final Pleural Fluid Aerobic and Anaerobic Culture - Preliminary No growth to date. Diagnostic Findings (Past 24 Hours) Chest X-Ray 10/27/21 16:59 XR chest 1V portable CLINICAL HISTORY: S/P Left Chest tube TECHNIQUE: Single frontal radiograph of the chest was obtained. Comparison: Comparison is made to chest radiograph 11/25/2021 FINDINGS: Interval placement of a left chest tube. The cardiomediastinal silhouette is stable. Lungs are clear apart from the left lower lung, as before. A moderate left pleural effusion has minimally decreased in size from prior exam. No evidence of pneumothorax. IMPRESSION: Satisfactory appearance of left chest tube with minimal decrease in size of left pleural effusion. No pneumothorax is seen. ACT 112: Negative or not required by law. Electronically signed by: Hema Matta M.D. 10/27/2021 5:20 PM Chest X-Ray 10/28/21 07:00 SINGLE VIEW CHEST CLINICAL HISTORY: Follow-up chest tube. FINDINGS: An AP, portable, upright chest radiograph is compared to study dated 10/27/2021 and correlated with chest CT dated 10/21/2021. The heart is enlarged. The pulmonary vasculature is noncongested. A left-sided chest tube is unchanged in position. There is a small residual left pleural effusion with left basilar consolidation. No pneumothorax is seen. The bony thorax is grossly intact. Left- sided rib fractures seen by CT are not apparent on x-ray. IMPRESSION: 1. Cardiomegaly without radiographic evidence of congestive failure. 2. A left-sided chest tube is unchanged in position. There is a small residual left pleural effusion with left basilar consolidation. The pleural effusion has significantly decreased in size from yesterday. ACT 112: Negative or not required by law. Electronically signed by: Albin De La Rosa M.D. 10/28/2021 8:24 AM I & O Totals 24 Hours 10/27/21 10/28/21 10/29/21 06:59 06:59 06:59 Intake Total 700 / 700 240 / 240 480 / 480 Output Total 100 / 100 1900 / 1900 80 / 80 Balance 600 / 600 -1660 / -1660 400 / 400 Cumulative 10/21/21 11:34 thru 10/28/21 14:55 Intake Total 2925 Output Total 2830 Balance 95 RT Ventilator Mngmt (Last Documented) Ventilator Ordered Settings Respiratory Rate 19 10/28/21 15:13 Ventilator - PT Measurements Respiratory Rate 19 PG Care Time/CCT Total # of Minutes Spent Total Time Spent with Patient: Total time spent is greater than 50% in coordination of care (as documented) at patient's floor/unit and/or counseling patient: Coding Level of Care Code 84323 Subseq Hosp Care Lvl 2 Diagnoses Pleural effusion J90 ESRD (end stage renal disease) on dialysis N18.6; Z99.2 Coronary artery disease I25.10 Status post coronary artery stent placement Z95.5
[2021-10-28] MEDS ORDERED: CYCLOBENZAPRINE HCL 5 MG TAB PO PRN (16:51)
[2021-10-28] MEDS: ATORVASTATIN 40 MG TAB PO SCH (20:51)
--- NOTE | 2021-10-28 22:29 | Hospitalist Progress Note ---
Date of Service October 28, 2021 Assessment & Plan (1) Multiple fractures of ribs of left side: Plan: Multiple fractures of ribs of left side 46-year-old male with history of diabetes type 1, end-stage renal disease on hemodialysis, CHF, chronic, systolic 25% ejection fraction, hypertension, Other problems noted below presenting with back pain after sustaining a fall. Status post mechanical fall Left rib fractures posterior 9-12 ribs, posterior lateral 10th and 11th rib CT lumbar showed acute fracture of the left inferior articular process of L4 and of the superior articular process of L5. Left vertebral articular process fracture L4 and L5 Continue usual Percocet as needed Dilaudid IV 0.5 mg every 4-6 hours as needed Orthopedic spine consulted continue Prednisone 20 mg daily ordered, Tylenol 650 mg every 6 hours, Felexril 5mg BID adding Continue pain control with as needed Dilaudid, oxycodone Encouraged to use incentive spirometry Outpatient follow-up for L4-L5 articular process fracture with Ortho PT and OT evaluation Left pleural effusion CXR on 10/26 showed moderate left pleural effusion with atelectasis of the left lower lung. This is new from 10/22/2021. S/P Pigtail chest tube insertion for the Left sided pleural effusion with likely Hemothorax performed by Dr. Frazier 1600ml of hemorrhagic fluid was drained Hemoglobin dropped to 8.4 Continue to hold plavix for atleast 5 days before resume If hgb continues trending down, might need to transfer to a tertiary care to eval by IR for embolization Continue monitor H/H Hyperkalemia End-stage renal disease on hemodialysis Case discussed with nephrology K stable PLS INCLUDE THE FOLLOWING ON D/C INSTRUCTIONS REGARDING PATIENT's HOME HEMODIALYSIS IF PT is DISCHARGED TODAY; PLS REVIEW W/ Dr GLEASON if he is d/c tomorrow or later -compliance with 5 days weekly HD is extremely important/ potentially lifesaving in order to control his potassium -he must NOT use heparin with dialysis; discuss with home hemo nurse extrusion process operator if concerns/questions -he should dose erythropoietin with dialysis at 20,000 units 3X weekly and give venofer 100 mg IV x 5 doses -he needs to do dialysis labs (he does these at home and has supplies for them)>> potassium and hemoglobin >> on Wednesday 11/01 and weekly thereafter until hgb is at acceptable level Diabetes mellitus type 1 -Uses Novolin 70/30 15 units 3 times a day at home -Continue NPH and insulin sliding scale Chronic systolic congestive heart failure, ejection fraction 25% V Tach episode with Syncope -occurred 10/24/2021 - in the setting of Hyper K, Cipro - Carvedilol changed to Metoprolol d/c Cipro -No recurrence of V. tach Continue metoprolol -Appears to be euvolemic -Continue Lasix, Coreg, Aspirin and Plavix R middle Finger wound - appears to be healing well Cipro discontinued Hypotension -Continue amlodipine Continue monitor BP DVT prophylaxis SCDs/Ambulation Admission and Anticipated Discharge Date Admission Date: October 21, 2021 Admission and Anticipated Discharge Date Admission Date: October 21, 2021 Subjective Pt was seen and examined for follow up of rib fracture pain Sitting at the edge of the bed with no acute distress He said that he feels much better today he is very anxious to go home tomorrow Denies any chest pain, palpitation, dizziness and SOB Review of Systems Review of Systems: All systems reviewed & are unremarkable except as noted in Subjective Physical Exam Physical Exam: General- No acute distress Head- atraumatic Eyes- PERRL, EOMI, ENT- oropharynx clear Neck- supple, no JVD Lungs- +diminished BS Heart- regular rhythm; no murmur Abdomen- normal bowel sounds, soft, nontender Extremities- no calf tenderness Neuro- alert, oriented x 3; PERRL, EOMI; no facial palsy; no dysarthria Skin- warm & dry Results & Data Results & [facility] ([facility]) Vital Signs (Past 12 Hours) Vital Signs Temp Pulse Pulse Pulse Resp BP BP 10/28/21 19:13 36.6 C 65 18 144/72 H 10/28/21 15:13 36.4 C L 64 19 89/39 L 10/28/21 13:56 36.8 C 63 123/86 10/28/21 13:30 69 119/57 L 10/28/21 13:00 59 L 121/65 10/28/21 12:30 57 L 94/51 L 10/28/21 12:00 64 98/42 L 10/28/21 11:30 60 86/30 L 10/28/21 11:00 62 92/39 L 10/28/21 10:30 61 93/36 L Pulse Ox 10/28/21 19:13 100 10/28/21 15:13 94 10/28/21 13:56 10/28/21 13:30 10/28/21 13:00 10/28/21 12:30 10/28/21 12:00 10/28/21 11:30 10/28/21 11:00 10/28/21 10:30 (1) Multiple fractures of ribs of left side Encounter type: initial encounter Fracture type: closed Qualified Code(s): S22.42XA - Multiple fractures of ribs, left side, initial encounter for closed fracture
[2021-10-29] MEDS ORDERED: COUGH DROP (SUGAR FREE) LOZ 24 LOZ/1 BOX BUCCAL PRN (00:36)
[2021-10-29] MEDS: HYDROmorphone INJ 0.5 MG/0.5 ML SYR IV PRN ×3 (00:41→08:25)
[2021-10-29] MEDS: ACETAMINOPHEN 325 MG TAB PO SCH ×2 (00:42→08:30)
[2021-10-29] MEDS: oxyCODONE HCL IR 5 MG TAB (IMMEDIATE RELEASE) PO PRN ×2 (06:37→11:33)
--- NOTE | 2021-10-29 07:13 | XRay Report ---
XR chest 1V portable CLINICAL HISTORY: f/u COMPARISON STUDY: Chest CT October 21, 2021. Chest radiograph October 28, 2021. FINDINGS: Left pleural catheter remains in place. Trace left pleural effusion with left basilar opaci ty is noted. Cardiomegaly is noted with prominent vascular congestion. There is no pneumothorax. No r ight pleural effusion is identified. IMPRESSION: 1. Left pleural catheter in place. Trace residual left pleural effusion with left basilar opacity. 2. No pneumothorax. 3. Cardiomegaly with pulmonary vascular congestion. ACT 112: Negative or not required by law. Electronically signed by: Fabio Dominguez M.D. 10/29/2021 7:11 AM
[2021-10-29] MEDS: METOPROLOL SUCC 50MG EXT REL TAB PO SCH (08:25)
[2021-10-29 08:26] LABS: Basophils # (auto) 0.03 K/uL (0-0.2); Basophils % (auto) 0.4 %; Eosinophils # (auto) 0.38 K/uL (0-0.5); Eosinophils % (auto) 4.5 %; Hematocrit (blood only) 25.2 % (42-52); Hemoglobin 8.1 g/dL (14.0-18.0); Immature Granulocytes # (auto) 0.02 K/uL (0.00-0.02); Immature Granulocytes % (auto) 0.2 %; Lymphocytes # (auto) 1.74 K/uL (1.2-3.4); Lymphocytes % (auto) 20.5 %; Mean Corpuscular Hemoglobin 30.9 pg (25-34); Mean Corpuscular Hgb Conc 32.1 g/dL (32-36); Mean Corpuscular Volume 96.2 fL (80-100); Mean Platelet Volume 9.2 fL (7.4-10.4); Monocytes # (auto) 1.32 K/uL (0.11-0.59); Monocytes % (auto) 15.6 %; Neutrophils # (auto) 4.99 K/uL (1.4-6.5); Neutrophils % (auto) 58.8 %; Platelet Count 209 K/uL (130-400); RDW Coefficient of Variation 16.1 % (11.5-14.5); RDW Standard Deviation 55.8 fL (36.4-46.3); Red Blood Count 2.62 M/uL (4.7-6.1); White Blood Count 8.48 K/uL (4.8-10.8)
[2021-10-29] MEDS: FUROSEMIDE 40 MG TAB PO SCH (08:26)
[2021-10-29] MEDS: amLODIPine BESYLATE 5 MG TAB PO SCH (08:26)
[2021-10-29] MEDS: PANTOprazole 40 MG TAB PO SCH (08:31)
[2021-10-29] MEDS: LIDOCAINE 5% 1 PATCH TD SCH (08:31)
[2021-10-29] MEDS: ASPIRIN 81 MG ECTAB PO SCH (08:31)
[2021-10-29] MEDS: POLYETHYLENE (MIRALAX) 17 GM PACK PO SCH (08:31)
[2021-10-29 08:39] LABS: BUN Creatinine Ratio 9.2 (10-20); Calcium 8.7 mg/dl (8.5-10.1); Creatinine Clr Calc Pharmacy 17.4 ml/min; Est GFR (African American) 11.3 ml/min; Est GFR (Non-African American) 9.8 ml/min; Potassium 4.7 mmol/L (3.5-5.1)
[2021-10-29] MEDS: INSULIN ASPART PER UNIT SC SCH ×2 (08:42→11:49)
[2021-10-29] MEDS ORDERED: predniSONE 10 MG TABLET PO SCH (09:00)
--- NOTE | 2021-10-29 09:52 | Nephrology Progress Note ---
Date of Service October 29, 2021 Assessment & Plan (1) ESRD (end stage renal disease) on dialysis: Plan: Patient on home hemo 4x/week. k was 7 on admission. K remains high. -Patient tolerated dialysis well yesterday with net UF of 1.5 L; some adherence concerns as OP at times . -Patient can be discharged home. He will do home hemodialysis 5 days a week (2) Pleural effusion: Plan: hemothorax in setting of rib fractures/trauma, plavix; in theory may have contribution from heparin w/ HD -no further heparin w/ HD -will lower lasix rx back to prior OP rx 40 mg bid (3) Acute hyperkalemia: Plan: Due to ESRD. admission K was 7. He was dialysed emergently on admission. -K intermittently high. K is 4.7 today. Low k diet, carb consistent ordered. Patient does not want the salt restriction and is refusing to eat. Okay to add salt for now Daily BMP. (4) Multiple fractures of ribs of left side: Plan: Pain control per primary team. he will need prn pain meds for HD; no heparin w/ HD d/t hemothorax Admission and Anticipated Discharge Date Admission Date: October 21, 2021 Subjective Seen for ESRD. Chest tube was removed this morning. No shortness of breath. Mild leg swelling. He had dialysis yesterday. Review of Systems Review of Systems: All other systems were reviewed and negative except as noted in HPI Physical Exam Physical Exam: General exam: Appears comfortable, no acute distress HEENT: Pupils are equal and reactive to light Neck: No JVD, neck is supple trachea is midline Respiratory system: tenderness on chest wall. Clear breath sounds bilaterally. Gastrointestinal: Abdomen is soft, non distended, non tender, bowel sounds are present CVS: Regular rate and rhythm. No murmurs, rubs or gallops Musculoskeletal: No joint or muscle tenderness Extremities: Non tender, no edema, peripheral pulses are present Neuro: Oriented, no tremors, no focal neurological deficits Skin: No rashes Results & Data ([facility]) Vital Signs (Past 12 Hours) Vital Signs Temp Pulse Pulse Resp BP Pulse Ox 10/29/21 08:00 69 10/29/21 07:33 36.7 C 65 21 143/77 H 94 10/29/21 03:06 36.6 C 63 18 114/64 94 10/28/21 23:03 37 C 71 18 129/48 L 95 (1) Multiple fractures of ribs of left side Encounter type: initial encounter Fracture type: closed Qualified Code(s): S22.42XA - Multiple fractures of ribs, left side, initial encounter for closed fracture
--- NOTE | 2021-10-29 10:05 | Pulmonology Progress Note ---
Date of Service October 29, 2021 Assessment & Plan (1) Pleural effusion: (2) ESRD (end stage renal disease) on dialysis: (3) Coronary artery disease: (4) Status post coronary artery stent placement: Plan: Attending: Dr. Frazier Impression: 46-year-old male with history of type 1 diabetes mellitus with end-stage renal disease on dialysis, right forearm AV fistula, CAD with stent placement currently on Plavix clopidogrel, morbid obesity, chronic anemia. Patient sustained a fall last Sunday (6 days ago) and had 5 rib fractures without evidence of flail chest. On admission imaging did not show significant pleural effusion. Patient complained of shortness of breath and had chest x-ray done which shows a moderate to large pleural effusion on the left. A 14 [place] sk[place] pigtail catheter was placed in the left pleural space by Dr. Frazier on 10/27/2021. Patient placed to [facility] overnight. Chest x-ray this morning shows near resolution of left pleural effusion. Recommendations: 1. Left pleural effusion: * Hemothorax most likely secondary to traumatic fall 6 days ago with multiple rib fractures * Left-sided pigtail catheter placed 10/27/2020 afternoon. * Continue to hold clopidogrel until we are sure that patient has no more bleeding to the chest. * Hemoglobin 8.1 this morning. * 90 mL output over the last 24 hours * Pleural fluid consisted primarily of blood. There is no evidence of malignancy or empyema * Chest tube removed 10/29/2021 am. Repeat chest x-ray next Sunday * Okay to resume clopidogrel on discharge 2. CAD with stent placement: * This was done 12 years ago per the report of the patient. Patient is on clopidogrel for a high-grade aortic stenosis. No anticoagulants * Continue usual medications per cardiology who is on board and following the patient as a consult service 3. Tobacco abuse: * Patient denies any use of inhaled tobacco but currently uses snuff ([place]) * Patient encouraged to abstain from tobacco abuse. Thank you very much for including us in the care of this patient. We will sign off at this time. Please feel free to call with any questions. A chest x-ray will be ordered for next Sunday and reviewed by the pulmonary team. Admission and Anticipated Discharge Date Admission Date: October 21, 2021 Subjective Attending: Dr. Elena Patient seen and examined in room 233. Chest x-ray reviewed this morning. No pneumothorax. There is very little residual pleural fluid left in the left lung base. Patient is oxygenating well on room air with no supplemental oxygen needs. He has some minimal pain at the insertion site of the chest tube. Otherwise most pain is restricted to his rib fractures. In the last 24 hours, patient has drained 90 cc of serosanguineous fluid and to the Martha Pleur-evac. Chest tube was placed to waterseal prior to chest x-ray this morning. Patient has no acute complaints. Review of Systems Review of Systems: A total of 10 systems was reviewed and is negative other than as listed in the HPI Physical Exam Physical Exam: GENERAL : No acute distress EYES: No icterus, gaze conjugate NOSE: No evidence of epistaxis MOUTH: No lesions or candidiasis NECK: Supple LUNGS: CTA B/L, no wheezes, rales or rhonchi. Chest tube is to clear in the mid axillary region of the left side. No airleak appreciated on the Pleur-evac. HEART: Regular, rate controlled ABDOMEN: Soft, NT, ND, BS Present EXTREMITIES: No LE edema, pedal pulses intact NEURO: A&OX3 Results & Data Results & Data ([facility]) Vital Signs (Past 12 Hours) Vital Signs Temp Pulse Pulse Resp BP Pulse Ox 10/29/21 08:00 69 10/29/21 07:33 36.7 C 65 21 143/77 H 94 10/29/21 03:06 36.6 C 63 18 114/64 94 10/28/21 23:03 37 C 71 18 129/48 L 95 Critical Care Results & Data Vital Signs (Past 12 Hours) Vital Signs Temp Pulse Pulse Resp BP Pulse Ox 10/29/21 08:00 69 10/29/21 07:33 36.7 C 65 21 143/77 H 94 10/29/21 03:06 36.6 C 63 18 114/64 94 10/28/21 23:03 37 C 71 18 129/48 L 95 Lab & Micro Results (Past 24 Hours) RBC 2.62 M/uL (4.7-6.1) L 10/29/21 WBC 8.48 K/uL (4.8-10.8) 10/29/21 Hgb 8.1 g/dL (14.0-18.0) L 10/29/21 Hct 25.2 % (42-52) L 10/29/21 MCV 96.2 fL (80-100) 10/29/21 MCH 30.9 pg (25-34) 10/29/21 MCHC 32.1 g/dL (32-36) 10/29/21 RDW Standard Deviation 55.8 fL (36.4-46.3) H 10/29/21 RDW Coefficient of Variation 16.1 % (11.5-14.5) H 10/29/21 Plt Count 209 K/uL (130-400) 10/29/21 MPV 9.2 fL (7.4-10.4) 10/29/21 Neutrophils (%) (Auto) 58.8 % 10/29/21 Lymphocytes (%) (Auto) 20.5 % 10/29/21 Monocytes # (Auto) 1.32 K/uL (0.11-0.59) H 10/29/21 Eosinophils # (Auto) 0.38 K/uL (0-0.5) 10/29/21 Immature Granulocyte % (Auto) 0.2 % 10/29/21 Neutrophils # (Auto) 4.99 K/uL (1.4-6.5) 10/29/21 Lymphocytes # (Auto) 1.74 K/uL (1.2-3.4) 10/29/21 Monocytes # (Auto) 1.32 K/uL (0.11-0.59) H 10/29/21 Eosinophils # (Auto) 0.38 K/uL (0-0.5) 10/29/21 Basophils # (Auto) 0.03 K/uL (0-0.2) 10/29/21 Immature Granulocyte # (Auto) 0.02 K/uL (0.00-0.02) 10/29/21 Na 134 mmol/L (136-145) L 10/29/21 K 4.7 mmol/L (3.5-5.1) 10/29/21 Cl 96 mmol/L (98-107) L 10/29/21 CO2 28 mmol/L (21-32) 10/29/21 Anion Gap 10 (3-11) 10/29/21 BUN 57 mg/dl (6-23) H 10/29/21 Creatinine 6.20 mg/dl (0.6-1.4) H* 10/29/21 Estimated GFR ( Amer) 11.3 ml/min 10/29/21 Estimated GFR (Non-Af Amer) 9.8 ml/min 10/29/21 BUN/Creatinine Ratio 9.2 (10-20) L 10/29/21 Glu 162 mg/dl (70-99(Fasting)) H 10/29/21 Ca 8.7 mg/dl (8.5-10.1) 10/29/21 Calcium Level 8.7 mg/dl (8.5-10.1) 10/29/21 07:43 10/29/21 Microbiology 10/27/21 17:00 Gram Stain - Final Pleural Fluid Aerobic and Anaerobic Culture - Preliminary No growth to date. Diagnostic Findings (Past 24 Hours) Chest X-Ray 10/29/21 07:00 XR chest 1V portable CLINICAL HISTORY: f/u COMPARISON STUDY: Chest CT October 21, 2021. Chest radiograph October 28, 2021. FINDINGS: Left pleural catheter remains in place. Trace left pleural effusion with left basilar opacity is noted. Cardiomegaly is noted with prominent vascular congestion. There is no pneumothorax. No right pleural effusion is identified. IMPRESSION: 1. Left pleural catheter in place. Trace residual left pleural effusion with left basilar opacity. 2. No pneumothorax. 3. Cardiomegaly with pulmonary vascular congestion. ACT 112: Negative or not required by law. Electronically signed by: Fabio Dominguez M.D. 10/29/2021 7:11 AM I & O Totals 24 Hours 10/28/21 10/29/21 10/30/21 06:59 06:59 06:59 Intake Total 240 / 240 1280 / 1280 Output Total 1900 / 1900 250 / 250 Balance -1660 / -1660 1030 / 1030 Cumulative 10/21/21 11:34 thru 10/29/21 06:56 Intake Total 3725 Output Total 3000 Balance 725 RT Ventilator Mngmt (Last Documented) Ventilator Ordered Settings Respiratory Rate 21 10/29/21 07:33 Ventilator - PT Measurements Respiratory Rate 21 PG Care Time/CCT Total # of Minutes Spent Total Time Spent with Patient: Total time spent is greater than 50% in coordination of care (as documented) at patient's floor/unit and/or counseling patient:35 minutes including chest tube removal Coding Level of Care Code 78603 Subseq Hosp Care Lvl 3 Diagnoses Pleural effusion J90 ESRD (end stage renal disease) on dialysis N18.6; Z99.2 Coronary artery disease I25.10 Status post coronary artery stent placement Z95.5
--- NOTE | 2021-10-29 12:10 | Cardiology Progress Note ---
Date of Service October 29, 2021 Assessment & Plan (1) Acute hyperkalemia: (2) Multiple fractures of ribs of left side: (3) HFrEF (heart failure with reduced ejection fraction): (4) Ventricular tachyarrhythmia: Plan: Admission following a mechanical fall with resultant multiple left sided rib fractures, left sided hemothorax status post 10/27/2021 chest tube placement as detailed above. Sustained symptomatic ventricular tachycardia on 10/24/2021 at 02:30 AM occurring in the setting of structural heart disease, marked hyperkalemia, cipro use, QTc prolongation. No further VT since a 6 beat run on 10/24/2021 at 16:05. Type I diabetes, end-stage renal disease on hemodialysis Systolic congestive heart failure Longstanding labile hypertension Right middle finger wound RECOMMENDATIONS/PLAN: Avoid QTc prolongation medications. Resume clopidogrel at discharge.(prescribed primarily due to the surgical grade internal carotid artery disease) Carvedilol changed to metoprolol succinate 100 mg twice a day this admission. Imdur added. Terazosin discontinued. Outpatient cardiac catheterization was scheduled at [facility] on 11/08/2021; this will be postponed until he recovers from the insults associated with the mechanical fall. Eventual Electrophysiology consultation, consideration for ICD implantation if LVEF remains < 35%. Had cardiac catheterization in 2019 without obstructive disease, however has had interval decline in LVEF and given risk factors , likelihood of progression of CAD certainly a consideration. The acute arrhythmia this admission took place in setting of hyperkalemia (reversible cause). Admission and Anticipated Discharge Date Admission Date: October 21, 2021 Subjective Pt seen in follow up. He is off of telemetry and in his clothes , anticipating discharge. States rib pain is controlled. Chest tube removed today, 10/29. Results & Data ([facility]) Vital Signs (Past 12 Hours) Vital Signs Temp Pulse Pulse Resp BP Pulse Ox 10/29/21 11:25 36.5 C 63 20 114/49 L 91 10/29/21 08:00 69 10/29/21 07:33 36.7 C 65 21 143/77 H 94 10/29/21 03:06 36.6 C 63 18 114/64 94 Laboratory Results CBC 10/29/21 Range/Units 07:43 WBC 8.48 (4.8-10.8) K/uL RBC 2.62 L (4.7-6.1) M/uL Hgb 8.1 L (14.0-18.0) g/dL Hct 25.2 L (42-52) % Plt Count 209 (130-400) K/uL Neut # (Auto) 4.99 (1.4-6.5) K/uL Lymph # (Auto) 1.74 (1.2-3.4) K/uL Morris # (Auto) 1.32 H (0.11-0.59) K/uL Eos # (Auto) 0.38 (0-0.5) K/uL Baso # (Auto) 0.03 (0-0.2) K/uL Comprehensive Metabolic Panel 10/28/21 10/29/21 Range/Units 03:01 07:43 Sodium 134 L (136-145) mmol/L Potassium 5.1 4.7 (3.5-5.1) mmol/L Chloride 96 L (98-107) mmol/L Carbon Dioxide 28 (21-32) mmol/L BUN 57 H (6-23) mg/dl Creatinine 6.20 H* (0.6-1.4) mg/dl Glucose 162 H (70-99(Fasting)) mg/dl Calcium 8.7 (8.5-10.1) mg/dl Intake and Output 10/28/21 10/29/21 10/29/21 22:59 06:59 14:59 Intake Total 680 / 1280 120 / 1280 Output Total 170 / 250 Balance 680 / 1030 -50 / 1030 Intake: Oral 680 / 1280 120 / 1280 Output: Urine 150 / 150 Chest Tube Drainage 20 / 100 Left Lateral Chest 20 / 100 Other: Weight 102 kg Weight Measurement Method Built in [facility] (1) Multiple fractures of ribs of left side Encounter type: initial encounter Fracture type: closed Qualified Code(s): S22.42XA - Multiple fractures of ribs, left side, initial encounter for closed fracture
--- NOTE | 2021-10-29 13:01 | Discharge Summary ---
Date of Service October 29, 2021 Admission HPI Per Admitting Provider 46-year-old male with history of diabetes type 1, end-stage renal disease on hemodialysis, CHF, chronic, systolic 25% ejection fraction, hypertension, Other problems noted below presenting with back pain after sustaining a fall. Patient was in his usual state of health until this afternoon, when patient, after getting out of the bathtub, slipped on the bathroom rug and fell backwards Hitting his back on the toilet seat. Patient denies loss of consciousness, head trauma. He experienced severe pain on the left posterior rib region after the fall, prompting consult to the ER. At the ER, patient received hemodynamically stable. CT imaging revealed left rib fractures posterior 9-12 ribs, posterior lateral 10-11 ribs as well as Left articular process fracture of L4 and L5. Patient was also found to be hyperkalemic at 7.1. He is due for hemodialysis today. On exam, patient seen sitting up in bed, hemodialysis in progress. Reports relief of left posterior rib pain after receiving analgesics at the ER. No active shortness of breath, chest pain, palpitations, dizziness, headache, dizziness, neck pain, abdominal pain, nausea or vomiting. No other symptoms Discharge Exam General- No acute distress Head- atraumatic Eyes- PERRL, EOMI, ENT- oropharynx clear Neck- supple, no JVD Lungs- +diminished BS Heart- regular rhythm; no murmur Abdomen- normal bowel sounds, soft, nontender Extremities- no calf tenderness Neuro- alert, oriented x 3; PERRL, EOMI; no facial palsy; no dysarthria Skin- warm & dry Discharge Data Allergies Allergy/AdvReac Type Severity Reaction Status Date / Time benzonatate Allergy Unknown told not Verified 08/23/21 01:14 to take ibuprofen Allergy Unknown told not Verified 08/23/21 01:14 to take baclofen AdvReac Severe sedation/co Verified 08/23/21 01:14 nfusion oxycodone AdvReac Intermediate Confusion Verified 08/23/21 01:14 FRED Inhibitors AdvReac Unknown Unknown Verified 08/23/21 01:14 Consultations 10/21/21 18:10 ED Decision to Admit Stat 10/21/21 18:26 Consult Nephrology Routine 10/22/21 08:06 Consult Orthopedic Surgery Routine 10/24/21 02:45 Consult Cardiology Routine 10/27/21 14:06 Consult Pulmonology Routine Ordered Studies 10/21/21 12:23 CT abd pelvis wo con Stat CT chest diagnostic wo con Stat 10/21/21 12:24 CT lumbar spine wo con Stat 10/27/21 14:45 US point of care ultrasound Routine 10/27/21 16:03 US point of care ultrasound Routine Hospital Course (1) Multiple fractures of ribs of left side: Multiple fractures of ribs of left side 46-year-old male with history of diabetes type 1, end-stage renal disease on hemodialysis, CHF, chronic, systolic 25% ejection fraction, hypertension, Other problems noted below presenting with back pain after sustaining a fall. Status post mechanical fall Left rib fractures posterior 9-12 ribs, posterior lateral 10th and 11th rib CT lumbar showed acute fracture of the left inferior articular process of L4 and of the superior articular process of L5. Left vertebral articular process fracture L4 and L5 Continue usual Percocet as needed Dilaudid IV 0.5 mg every 4-6 hours as needed Orthopedic spine consulted continue Prednisone 20 mg daily ordered, Tylenol 650 mg every 6 hours, Felexril 5mg BID adding Continue pain control with as needed Dilaudid, oxycodone Encouraged to use incentive spirometry Outpatient follow-up for L4-L5 articular process fracture with Ortho PT and OT evaluation Left pleural effusion CXR on 10/26 showed moderate left pleural effusion with atelectasis of the left lower lung. This is new from 10/22/2021. S/P Pigtail chest tube insertion for the Left sided pleural effusion with likely Hemothorax performed by Dr. Frazier 1600ml of hemorrhagic fluid was drained Hemoglobin dropped to 8.4 Continue to hold plavix for atleast 5 days before resume If hgb continues trending down, might need to transfer to a tertiary care to eval by IR for embolization Continue monitor H/H Hyperkalemia End-stage renal disease on hemodialysis Case discussed with nephrology K pia PLS INCLUDE THE FOLLOWING ON D/C INSTRUCTIONS REGARDING PATIENT's HOME HEMODIALYSIS IF PT is DISCHARGED TODAY; PLS REVIEW W/ Dr DAVIDSON if he is d/c tomorrow or later -compliance with 5 days weekly HD is extremely important/ potentially lifesaving in order to control his potassium -he must NOT use heparin with dialysis; discuss with home hemo nurse stoner out if concerns/questions -he should dose erythropoietin with dialysis at 20,000 units 3X weekly and give venofer 100 mg IV x 5 doses -he needs to do dialysis labs (he does these at home and has supplies for them)>> potassium and hemoglobin >> on Wednesday 11/01 and weekly thereafter until hgb is at acceptable level Diabetes mellitus type 1 -Uses Novolin 70/30 15 units 3 times a day at home -Continue NPH and insulin sliding scale Chronic systolic congestive heart failure, ejection fraction 25% V Tach episode with Syncope -occurred 10/24/2021 - in the setting of Hyper K, Cipro - Carvedilol changed to Metoprolol d/c Cipro -No recurrence of V. tach Continue metoprolol -Appears to be euvolemic -Continue Lasix, Coreg, Aspirin and Plavix R middle Finger wound - appears to be healing well Cipro discontinued Hypotension -Continue amlodipine Continue monitor BP DVT prophylaxis SCDs/Ambulation Admission and Anticipated Discharge Date Admission Date: October 21, 2021 Discharge Plan Discharge Items Patient Disposition: Home - Self-Care Reason For Visit: HYPERKALEMIA, L4-5 FRACTURES Discharge Diagnosis: Multiple fractures of ribs of left side: Status post mechanical fall Left pleural effusion Hyperkalemia End-stage renal disease on hemodialysis Diabetes Chronic systolic congestive heart failure, ejection fraction 25% R middle Finger wound Hypotension Activity: Resume your previous activity Non-emergency contact: Primary Care Provider, Bariatric Nurse and Dry Wall Sprayer Call non-emergency contact if: you have any medication questions, your symptoms worsen, your pain is worsening, your pain is concerning for you, your temperature is above 101.5, your wound has increased redness and your wound has increased drainage Follow-up/Referrals: Grayson Swan MD [Primary Care Provider] - (Date & Time 11/01/2021 3:20 PM Provider Grayson Swan MD Department [facility] ) Diet: Carb Count or DM1 and Dialysis Renal Addtl Attending Provider Instructions: Follow up with your primary care provider Dr. Swan on 11/01/2021 @ 3:20 PM [facility] Follow up with pulmonology next week ( Ordered repeat chest x-ray next Sunday) Continue incentive spirometry Follow up with your Cardiology Ok to resume Plavix on Sunday if bleeding stable Do not drive or operate any machine while taking Oxycodone Please hold next dose of Oxycodone if you become drowsy and lethargy Seek urgent medical attention if you develop any shortness of breath or symptoms worsening fall precaution counseling on smoking cessation carvedilol discontinued Metoprolol 100mg twice a day added Follow up with nephrology Instruction for home dialysis: -compliance with 5 days weekly HD is extremely important/ potentially lifesaving in order to control his potassium -You must NOT use heparin with dialysis; discuss with home hemo nurse stoner out if concerns/questions -You should dose erythropoietin with dialysis at 20,000 units 3X weekly and give venofer 100 mg IV x 5 do Pending Studies at Discharge: No Stand-Alone Forms: My [facility] [employer], Smoking Cessation Medications and DC Order Prescriptions: New metoprolol succinate 100 mg tablet extended release 24 hr 100 mg PO BID 30 Days Qty: 60 RF: 0 Continued furosemide [Lasix] 40 mg Tablet 40 mg PO BID RF: 0 atorvastatin 40 mg Tablet 40 mg PO HS RF: 0 clopidogrel 75 mg Tablet 75 mg PO DAILY RF: 0 nitroglycerin [Nitrostat] 0.4 mg Tablet, Sublingual 0.4 mg Sublingual DIRECTED PRN (Reason: Chest Pain) RF: 0 omeprazole 20 mg Capsule,Delayed Release(Dr/Ec) 20 mg PO QAM RF: 0 insulin aspart U-100 [Novolog Flexpen U-100 Insulin] 100 unit/mL Insulin Pen 0 unit SUBCUT TID PRN (Reason: Hyperglycemia) RF: 0 aspirin 81 mg Tablet,Delayed Release (Dr/Ec) 81 mg PO DAILY RF: 0 hydralazine 100 mg tablet 100 mg PO BID PRN (Reason: ..) RF: 0 amlodipine 5 mg tablet 5 mg PO DAILY RF: 0 Epogen Inj 0 mg INJ [id number] RF: 0 Novolin 70-30 FlexPen U-100 15 units SC TID RF: 0 Changed oxycodone 5 mg Tablet 5 mg PO Q8H PRN (Reason: pain) Qty: 10 RF: 0 Discontinued terazosin 2 mg Capsule 4 mg PO HS RF: 0 oxycodone-acetaminophen 5-325 mg tablet 1 tab PO Q4H PRN (Reason: Pain) RF: 0 sulfamethoxazole-trimethoprim [Bactrim DS] 800-160 mg tablet 1 tab PO UD Qty: 12 RF: 0 carvedilol 25 mg Tablet 25 mg PO BID Qty: 0 RF: 0 cephalexin 500 mg capsule 500 mg PO DAILY Qty: 4 RF: 0 ciprofloxacin HCl 500 mg tablet 500 mg PO DAILY RF: 0 Discharge Orders: Discharge Order (Routine); Ordered 10/29/21 Ordered By: Elisabet Álvarez/Other Patient Handouts: Managing Type 1 Diabetes Admission Data Admit Date/Time: 10/21/21 18:26 Attending Provider: Elisabet Schultz Admit Provider: Christos Woodruff Primary Care Provider: Grayson Swan Other Providers: Christos Woodruff ; Jenelle Davidson ; Silas Park ; Craig Fried ; Gaston Lechuga ; Pablo Salguero ; Josué Wilkerson ; Florentin Caro ; Arsenio Ramsay ; Marline Tovar ; Cristiane Person ; Lisette Kirby ; Michael Gonzalez ; Silas Rodas
== END 2021-10-29 13:24 | disposition home or self-care (01) | DRG 183 ==
LOC: ED 11:34 → 2W 18:26 → SUATTDRO 18:26 → 2W 20:46 → 2S 10-24 03:18

== ENCOUNTER 2021-11-11 08:14 | Inpatient (IN) ==
--- NOTE | 2021-11-11 08:53 | Emergency Department Note ---
History of Present Illness General Chief Complaint: Chest Pain Stated Complaint: CHEST PAINS, 6 CRACKED RIBS, SHORTNESS OF BREATH Time Seen by Provider: 11/11/21 08:36 History of Present Illness Provider Complaint: shortness of breath Onset (ago): day(s) (2) Maximum Pain Intensity: 8 Current Pain Intensity: 8 Relieved By: + upright position Exacerbated By: + nothing Context: + trauma/injury (Fell 6 weeks ago and cracked multiple ribs) Associated symptoms: no chest pain, no pain with inspiration, no fever, no cough, no wheezing, no sputum production, no polyuria, no paresthesias, no palpitations, no hemoptysis, no diaphoresis, no nausea/vomiting or no abdominal pain HPI Narrative: 46-year-old male end-stage renal disease on home hemodialysis every day presents emergency department for shortness of breath. Patient reports 3 weeks ago he fell and cracked 6 ribs. Patient reports that he was admitted to the hospital for this and developed a left lower lobe pneumonia. He states that his left lung filled up with fluid and Dr. Frazier had to put a chest tube to drain the fluid. He states he feels like his left lung is filling up with fluid again. Patient states he has been doing his dialysis and lasted dialysis last night. Home Medications Medication Instructions Recorded Confirmed Type atorvastatin 40 mg tablet 40 mg PO HS 02/13/18 11/11/21 History clopidogrel 75 mg tablet 75 mg PO DAILY 02/13/18 11/11/21 History nitroglycerin 0.4 mg sublingual 0.4 mg sublingual DIRECTED PRN 02/13/18 11/11/21 History tablet (Nitrostat) Chest Pain omeprazole 20 mg capsule,delayed 40 mg PO QAM 02/13/18 11/11/21 History release aspirin 81 mg tablet,delayed 81 mg PO DAILY 06/10/20 11/11/21 History release hydralazine 100 mg tablet 100 mg PO BID PRN .. 10/14/20 11/11/21 History Epogen Inj 0 mg INJ DIRECTED 08/23/21 11/11/21 History amlodipine 5 mg tablet 5 mg PO DAILY 08/23/21 11/11/21 History Novolin 70-30 FlexPen U-100 15 units SC TID 10/21/21 11/11/21 History oxycodone 5 mg tablet 5 mg PO Q8H PRN pain #10 tabs 10/29/21 11/11/21 Rx metoprolol succinate 100 mg 100 mg PO DAILY 11/11/21 11/11/21 History tablet,extended release 24 hr Allergies Allergy/AdvReac Type Severity Reaction Status Date / Time benzonatate Allergy Unknown told not Verified 11/01/21 16:59 to take ibuprofen Allergy Unknown told not Verified 11/01/21 16:59 to take baclofen AdvReac Severe sedation/co Verified 11/01/21 16:59 nfusion oxycodone AdvReac Intermediate Confusion Verified 11/01/21 16:59 FRED Inhibitors AdvReac Unknown Unknown Verified 11/01/21 16:59 Past Med/Surg History Medical History Acute left lumbar radiculopathy Anemia Bilateral carotid artery stenosis Monitored with Carotid Doppler q6 months. 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 Carotid artery stenosis Coronary artery disease Diabetes mellitus, insulin-dependent (IDDM or type I) DM I (diabetes mellitus, type I) Dyslipidemia ESRD (end stage renal disease) on dialysis GERD (gastroesophageal reflux disease) Gout Hemothorax, traumatic Hypertension Hypertensive urgency Labile hypertension Orthostatic hypotension Presence of artificial eye LEFT Ulcer of finger R third digit Weakness Surgical History History of discectomy LUMBAR History of eye surgery MULTIPLE EYE SURGERIES S/T COMPLICATIONS OF DIABETES INCLUDING DETACHED RETINA, DSEAK PROCEDURES, AND ENUCLEATION OF LEFT EYE Status post cardiac catheterization Status post coronary artery stent placement 2009, NO HX OF [place]. [facility]. Family History Other Cancer Diabetes Gallbladder disease Heart disease Hypertension Social History Smoking Status: Never smoker Tobacco Type: Smokeless Tobacco (Dip or Chew) Second Hand Exposure: No; Do You Dip or Chew Tobacco: Yes; Hx Alcohol Use: No Hx Substance Use: No Preferred Language: Thai Communication Ability: Effective Visual Impairment: Blindness [employer] Required: No Beliefs That Will Affect Care: None marital status: Current Living Situation: Spouse current occupational status: disabled Other Information That Helps Us Care for You: No Feels Safe at Home: Yes Safety Concerns: Feels Safe At This Time Assistive Devices: Cane and Prosthesis Assistive Devices Comment: left eye Review of Systems A total of 10 systems reviewed and were otherwise negative Physical Exam Vital Signs: Vital Signs - 24 hr 11/11/21 08:24 11/11/21 08:31 11/11/21 09:14 Temperature 36.5 C Temperature Source Oral Pulse Rate 84 Pulse Rate [Apical ] 82 Respiratory Rate 20 18 Respiratory Effort / Characteristics Non-Labored Sponta neous Non-Labored Respiratory Depth Normal Normal Respiratory Patter n Regular Blood Pressure 121/36 L Blood Pressure [Ri ght Arm] 159/83 H Blood Pressure Debbie n 64 Blood Pressure Debbie n [Right Arm] 108 Blood Pressure Pos ition Lying Blood Pressure Pos ition [Right Arm] Lying Pulse Oximetry 99 98 Oxygen Delivery Me thod Room Air Room Air Room Air Sepsis Recent Feve r Within 48 Hours No Sepsis New/Unexpla ined Change in Men chace Status No Sepsis Action Take n by Nursing No Action Required 11/11/21 10:51 Temperature Temperature Source Pulse Rate Pulse Rate [Apical ] 79 Respiratory Rate 18 Respiratory Effort / Characteristics Non-Labored Respiratory Depth Normal Respiratory Patter n Blood Pressure Blood Pressure [Ri ght Arm] 173/87 H Blood Pressure Debbie n Blood Pressure Debbie n [Right Arm] 115 Blood Pressure Pos ition Blood Pressure Pos ition [Right Arm] Lying Pulse Oximetry 98 Oxygen Delivery Me thod Room Air Sepsis Recent Feve r Within 48 Hours Sepsis New/Unexpla ined Change in Men chace Status Sepsis Action Take n by Nursing Physical Exam: Physical Exam GENERAL: He is oriented to person, place, and time. He appears well-developed and well-nourished. He does not appear distressed. HENT: Exam performed. - Head: Normocephalic and atraumatic. - Right Ear: External ear normal. No mastoid tenderness. - Left Ear: External ear normal. No mastoid tenderness. - Mouth/Throat: The oropharynx is clear and moist. No trismus in the jaw. No dental abscesses or uvula swelling. No oropharyngeal exudate or tonsillar abscesses. EYES: Conjunctivae and EOM are normal. Pupils are equal, round, and reactive to light. Right eye exhibits no discharge. Left eye exhibits no discharge. No scleral icterus. NECK: Normal range of motion. Neck supple. No JVD present. No spinous process tenderness present. No carotid bruit present. No rigidity. No tracheal deviation and normal range of motion present. No Brudzinski's sign and no Kernig's sign noted. CV: Normal rate, regular rhythm, normal heart sounds and intact distal pulses. There is no peripheral edema. Palpable radial pulses bue. PULM/CHEST: Effort normal and breath sounds normal. No respiratory distress. No stridor. He has no wheezes. He has no rales. - Chest Wall: He exhibits no tenderness. ABD: The abdomen is soft. Bowel sounds are normal. He has no distension. No mass is present. There is no tenderness. There is no rebound, no guarding, no Candis y's sign and no tenderness at McBurney's point. Rovsig negative. MUSC/SKEL: Normal range of motion. There is no peripheral edema, tenderness or deformity.Left upper extremity AV fistula LYMPH: No cervical adenopathy. NEURO: He is alert and oriented to person, place, and time. He has normal strength. No cranial nerve deficit or sensory deficit. Coordination and gait normal. GCS eye subscore is 4. GCS verbal subscore is 5. GCS motor subscore is 6. Cerebellar tests wnl. SKIN: Skin is warm and dry. He is not diaphoretic. PSYCH: He has a normal mood and affect. Behavior is normal. Judgment and thought content normal. Course Course 0836: The patient was evaluated in room A11. A complete history and physical exam was performed Cardiac monitoring: An order was placed for continuous cardiac monitoring. The monitor shows a rate of 80 with sinus rhythm EMR reviewed. Patient was admitted from October 21 to October 29, 2021. Patient had a large left-sided pleural effusion which had to have a pigtail catheter placed by Dr. Grimm. 1600 cc of hemorrhagic fluid was drained. 1109: Vital signs stable. Labs show potassium of 6. Patient will be treated with 1 amp of D50 and 5 units of insulin IV push. Calcium gluconate also ordered for the patient. Imaging does show recurrence of left-sided pleural effusion. [facility] evaluation by pulmonology for the recurrent pleural effusion. Discussed case with Ondina Ordonez PAC who stated to admit to Dr. Richardson Administered Medications Acetaminophen (Acetaminophen 325 Mg Tab) 650 mg PO Q4H PRN PRN Reason: Pain or Fever Stop: 12/11/21 14:09 Last Admin: 11/11/21 14:57 Dose: 650 mg Documented By: MAGDALENO Lidocaine (Lidocaine 5% 1 Patch) 1 patch TD QAM GHAZALA Stop: 12/11/21 14:09 Last Admin: 11/11/21 15:14 Dose: 1 patch Documented By: MAGDALENO Oxycodone HCl (Oxycodone Hcl Ir 5 Mg Tab (Immediate Release)) 5 mg PO Q6 PRN PRN Reason: pain Stop: 11/25/21 14:09 Last Admin: 11/11/21 14:50 Dose: 5 mg Documented By: MAGDALENO Discontinued Medications Dextrose (Dextrose 50% 50 Ml Syringe) 50 ml IV NOW STA Stop: 11/11/21 10:57 Last Admin: 11/11/21 11:47 Dose: 50 ml Documented By: THANH Dextrose (Dextrose 50% 50 Ml Syringe) 50 ml IV NOW ONE Stop: 11/11/21 13:06 Last Admin: 11/11/21 13:08 Dose: 50 ml Documented By: THANH Fentanyl Citrate (Fentanyl Citrate 100 Mcg/2 Ml Vial) 50 mcg IV NOW STA Stop: 11/11/21 12:49 Last Admin: 11/11/21 14:45 Dose: Not Given Documented By: MAGDALENO Calcium Gluconate 1,000 mg/ (Dextrose) 60 mls @ 240 mls/hr IV ONCE STA Stop: 11/11/21 11:10 Last Infusion: 11/11/21 12:03 Dose: 0 mls/hr Documented By: Admin: 11/11/21 11:47 Dose: 240 mls/hr Documented By: THANH Insulin Human Regular 5 units/ (Syringe) 9.9 mls @ 3 mls/sec IV ONE STA Stop: 11/11/21 10:57 Last Admin: 11/11/21 11:47 Dose: 3 mls/sec Documented By: THANH Co-signed By: YURY Miscellaneous (Stat Iv) 1 each N/A NOW STA Stop: 11/11/21 10:57 Last Admin: 11/11/21 11:59 Dose: Not Given Documented By: THANH Morphine Sulfate (Morphine Sulfate 4 Mg/Ml 1 Ml Carp\Vial) 4 mg IV NOW STA Stop: 11/11/21 10:57 Last Admin: 11/11/21 11:06 Dose: 4 mg Documented By: THANH Patiromer (Patiromer Calcium Sorbitex 8.4 Gm Pack) 8.4 gm PO ONE ONE Stop: 11/11/21 11:58 Last Admin: 11/11/21 15:14 Dose: 8.4 gm Documented By: MAGDALENO Medical Decision Making Laboratory Data Result diagrams: 11/11/21 08:39 11/11/21 08:39 Lab Results 11/11/21 11/11/21 11/11/21 Range/Units 08:39 08:39 08:39 WBC 9.69 (4.8-10.8) K/ul RBC 3.28 L (4.63-6.08) M/uL Hgb 10.2 L (14.0-18.0) g/dl Hct 32.0 L (40.1-51.0) % MCV 97.6 (80.0-100.0) fL MCH 31.1 (25.0-34.0) pg MCHC 31.9 L (32.0-36.0) g/dL RDW Std Deviation 67.8 H (36.4-46.3) fL RDW Coeff of Nessa 18.9 H (11.5-14.5) % Plt Count 153 (130-400) K/uL MPV 8.9 L (9.4-12.4) fL Immature Gran % (Auto) 0.6 % Neut % (Auto) 66.7 % Lymph % (Auto) 9.9 % Mora % (Auto) 15.9 % Eos % (Auto) 6.3 % Baso % (Auto) 0.6 % Neut # (Auto) 6.46 (1.4-6.5) K/uL Lymph # (Auto) 0.96 L (1.2-3.4) K/uL Mora # (Auto) 1.54 H (0.24-0.82) K/uL Eos # (Auto) 0.61 H (0-0.50) K/uL Baso # (Auto) 0.06 (0-0.2) K/uL Immature Gran # (Auto) 0.06 H (0.00-0.02) K/uL PT 12.4 H (9.0-12.0) Seconds INR 1.2 H (0.9-1.1) APTT 31.3 H (21.0-31.0) Seconds PTT Ratio 1.1 Sodium 131 L (136-145) mmol/L Potassium 6.0 H (3.5-5.1) mmol/L Chloride 91 L (98-107) mmol/L Carbon Dioxide 31 (21-32) mmol/L Anion Gap 9 (3-11) BUN 49 H (6-23) mg/dl Creatinine 8.89 H* (0.6-1.4) mg/dl Est Cr Clr Drug Dosing 12.1 ml/min Est GFR ( Amer) 7.3 ml/min Est GFR (Non-Af Amer) 6.3 ml/min BUN/Creatinine Ratio 5.5 L (10-20) Glucose 77 (70-99(Fasting)) mg/dl Calcium 9.5 (8.5-10.1) mg/dl SARS-CoV-2, RNA, NAAT (NEGATIVE) 11/11/21 Range/Units 10:49 WBC (4.8-10.8) K/ul RBC (4.63-6.08) M/uL Hgb (14.0-18.0) g/dl Hct (40.1-51.0) % MCV (80.0-100.0) fL MCH (25.0-34.0) pg MCHC (32.0-36.0) g/dL RDW Std Deviation (36.4-46.3) fL RDW Coeff of Nessa (11.5-14.5) % Plt Count (130-400) K/uL MPV (9.4-12.4) fL Immature Gran % (Auto) % Neut % (Auto) % Lymph % (Auto) % Mora % (Auto) % Eos % (Auto) % Baso % (Auto) % Neut # (Auto) (1.4-6.5) K/uL Lymph # (Auto) (1.2-3.4) K/uL Mora # (Auto) (0.24-0.82) K/uL Eos # (Auto) (0-0.50) K/uL Baso # (Auto) (0-0.2) K/uL Immature Gran # (Auto) (0.00-0.02) K/uL PT (9.0-12.0) Seconds INR (0.9-1.1) APTT (21.0-31.0) Seconds PTT Ratio Sodium (136-145) mmol/L Potassium (3.5-5.1) mmol/L Chloride (98-107) mmol/L Carbon Dioxide (21-32) mmol/L Anion Gap (3-11) BUN (6-23) mg/dl Creatinine (0.6-1.4) mg/dl Est Cr Clr Drug Dosing ml/min Est GFR ( Amer) ml/min Est GFR (Non-Af Amer) ml/min BUN/Creatinine Ratio (10-20) Glucose (70-99(Fasting)) mg/dl Calcium (8.5-10.1) mg/dl SARS-CoV-2, RNA, NAAT NEGATIVE (NEGATIVE) Imaging Data Radiologist's Impression: Chest X-Ray 11/11/21 08:42 XR chest 1V portable HISTORY: Shortness of breath. COMPARISON: Chest 11/01/2021. FINDINGS: No pneumothorax. The heart remains mildly enlarged. Small to moderate left pleural effusion and left basilar densities which have progressed in the interval. The right lung is clear. No evidence for pulmonary edema. Left-sided rib fractures are better appreciated on the prior abdomen and pelvis CT. IMPRESSION: 1. Slight increase in size in the small to moderate left pleural effusion/hemothorax and left basilar densities. 2. The patient's known left rib fractures are better appreciated on this prior abdomen and pelvis CT. No pneumothorax. ACT 112: Negative or not required by law. Electronically signed by: Eddie Cantor M.D. 11/11/2021 9:01 AM ECG Data Interpretation: Sinus rhythm with a rate of 84. TN 200 QRS [address] elevation or ST depression. T wave inversion leads I and aVL. No significant change from EKG done on November 01, 2021. [facility] Narrative 0836: The patient was evaluated in room A11. A complete history and physical exam was performed Cardiac monitoring: An order was placed for continuous cardiac monitoring. The monitor shows a rate of 80 with sinus rhythm EMR reviewed. Patient was admitted from October 21 to October 29, 2021. Patient had a large left-sided pleural effusion which had to have a pigtail catheter placed by Dr. Grimm. 1600 cc of hemorrhagic fluid was drained. 1109: Vital signs stable. Labs show potassium of 6. Patient will be treated with 1 amp of D50 and 5 units of insulin IV push. Calcium gluconate also ordered for the patient. Imaging does show recurrence of left-sided pleural effusion. [facility] and evaluation by pulmonology for the recurrent pleural effusion. Discussed case with Ondina FERRERA who stated to admit to Dr. Richardson Impression & Plan Hyperkalemia, Pleural effusion Critical Care Time Critical Care Time: Yes Total Critical Care Time: 48 I have personally spent greater than 48 minutes of critical care time in the direct management of this patient. This includes bedside care, interpretation of diagnostic studies, and testing, discussion with consultants, patient, and family members, and other required patient management activities. This 48 minutes is in excess of all separately billable procedures. Discharge Plan Visit Data Chief Complaint: Chest Pain Stated Complaint: CHEST PAINS, 6 CRACKED RIBS, SHORTNESS OF BREATH ED Provider: Ion Nelson Discharge Problem: Hyperkalemia, Pleural effusion Patient Disposition: Admitted As Inpatient Discharge Instructions Interventions: ED Discharge Assessment Last Done: 11/11/21 13:47
--- NOTE | 2021-11-11 09:03 | XRay Report ---
XR chest 1V portable HISTORY: Shortness of breath. COMPARISON: Chest 11/01/2021. FINDINGS: No pneumothorax. The heart remains mildly enlarged. Small to moderate left pleural effusion and left basilar densities which have progressed in the interval. The right lung is clear. No eviden ce for pulmonary edema. Left-sided rib fractures are better appreciated on the prior abdomen and pelv is CT. IMPRESSION: 1. Slight increase in size in the small to moderate left pleural effusion/hemothorax and left basilar densities. 2. The patient's known left rib fractures are better appreciated on this prior abdomen and pelvis CT. No pneumothorax. ACT 112: Negative or not required by law. Electronically signed by: Eddie Cantor M.D. 11/11/2021 9:01 AM
[2021-11-11 09:06] LABS: Basophils # (auto) 0.06 K/uL (0-0.2); Basophils % (auto) 0.6 %; Eosinophils # (auto) 0.61 K/uL (0-0.50); Eosinophils % (auto) 6.3 %; Hemoglobin 10.2 g/dl (14.0-18.0); Immature Granulocytes # (auto) 0.06 K/uL (0.00-0.02); Immature Granulocytes % (auto) 0.6 %; Lymphocytes # (auto) 0.96 K/uL (1.2-3.4); Lymphocytes % (auto) 9.9 %; Mean Corpuscular Hemoglobin 31.1 pg (25.0-34.0); Mean Corpuscular Hgb Conc 31.9 g/dL (32.0-36.0); Mean Corpuscular Volume 97.6 fL (80.0-100.0); Mean Platelet Volume 8.9 fL (9.4-12.4); Monocytes # (auto) 1.54 K/uL (0.24-0.82); Monocytes % (auto) 15.9 %; Neutrophils # (auto) 6.46 K/uL (1.4-6.5); Neutrophils % (auto) 66.7 %; Platelet Count 153 K/uL (130-400); RDW Coefficient of Variation 18.9 % (11.5-14.5); RDW Standard Deviation 67.8 fL (36.4-46.3); Red Blood Count 3.28 M/uL (4.63-6.08); White Blood Count 9.69 K/ul (4.8-10.8)
[2021-11-11 09:10] LABS: INR 1.2 (0.9-1.1); Partial Thromboplastin Ratio 1.1; Partial Thromboplastin Time 31.3 Seconds (21.0-31.0); Prothrombin Time 12.4 Seconds (9.0-12.0)
[2021-11-11 09:24] LABS: BUN Creatinine Ratio 5.5 (10-20); Calcium 9.5 mg/dl (8.5-10.1); Creatinine Clr Calc Pharmacy 12.1 ml/min; Est GFR (African American) 7.3 ml/min; Est GFR (Non-African American) 6.3 ml/min
[2021-11-11] MEDS ORDERED: STAT IV STA (10:56)
[2021-11-11] MEDS ORDERED: INSULIN HUMAN REGULAR PER UNIT 5 UNITS in SYRINGE 9.9 ML IV STA (10:56)
[2021-11-11] MEDS ORDERED: CALCIUM GLUCONATE 10% 1,000 MG in DEXTROSE 5% 50 ML IV STA (10:56)
[2021-11-11] MEDS ORDERED: DEXTROSE 50% 50 ML SYRINGE IV STA (10:56)
[2021-11-11] MEDS ORDERED: MoRPHine SULFATE 4 MG/ML 1 ML CARP\\VIAL IV STA ×2 (10:56→23:39)
--- NOTE | 2021-11-11 11:22 | History & Physical Report ---
Date of Service November 11, 2021 Assessment & Plan (1) SOB (shortness of breath): (2) Pleural effusion: (3) Acute hyperkalemia: (4) ESRD (end stage renal disease) on dialysis: (5) DM I (diabetes mellitus, type I): (6) HFrEF (heart failure with reduced ejection fraction): (7) Multiple fractures of ribs of left side: (8) Fracture of lumbar spine: Plan This is a 46-year-old male who has a significant past medical history of type 1 diabetes mellitus, end-stage renal disease on home hemodialysis 5 days a week, chronic HFrEF, HTN, hyperparathyroidism, fatty liver disease, anemia of renal disease, GERD who presents to ED secondary to SOB. SOB Left Pleural Effusion - recurrent Recent Fall with Multiple L sided rib fractures Traumatic hemothorax Recent fx of lumbar spine, traumatic admit to tele consult pulm to eval for possible thoracentesis pt saturating well on room air but symptomatic with sob, difficulty taking deep breath monitor O2 sats ESRD on HD - home dialysis, recently unable to complete full tx due to lower BP HyperKalemia consult nephrology in ED given Calc gluc, D5 and insulin Veltassa started repeat BMP in a.m. renal diet T1DM a1c 8.3 on 10/[address] on novolin protocol Anemia of renal disease hgb stable despite hemothorax tx as per nephro Chronic HFrEF hx of Vtach HTN daily weights, strict I and O continue amlodipine, asa, statin, metoprolol metoprolol recent reduced to daily due to lower BP Hold Plavix due to possible thoracentesis last echo 10/25 EF 20 to 25%, left ventricular systolic function severely reduced, akinesis of the anterior/anterior apical septal aguilar otherwise moderate global hypokinesis DVT ppx: SCDS Dispo: PCU FULL CODE PCP: Sosa Pt was seen and examined in collaboration with Dr. Richardson, please see addendum History of Present Illness Chief Complaint: SOB x 2-3 days. Primary Care Provider: Grayson Swan MD This is a 46-year-old male who has a significant past medical history of type 1 diabetes mellitus, end-stage renal disease on home hemodialysis 5 days a week, chronic HFrEF, HTN, hyperparathyroidism, fatty liver disease, anemia of renal disease, GERD who presents to ED secondary to SOB. Of significance patient recently hospitalized 10/21 to 10/29/2021 after sustaining a mechanical fall when trying to get out of shower. He hit his head and his left upper thorax. He subsequently sustained left rib fractures 9 through 12 posteriorly, 10 through 11 laterally and a left articular process fracture of L4 and L5. Secondary to rib fractures he did develop a hemothorax and large pleural effusion. He did require a Pleurx chest tube to be placed which drained 1600 mL of bloody fluid. It was felt this was likely secondary to hemothorax. His hemoglobin did drop to 8.4. He was seen and evaluated by pulmonology while hospitalized. He was also followed by nephrology secondary to dialysis needs. His hospital course was complicated after he sustained an episode of V. tach and syncope on 10/24 which was felt secondary to hyperkalemia and Cipro use. His Coreg was switched to metoprolol metoprolol dose was adjusted. Cardiology was also on board. He did have echocardiogram on 10/25 which revealed EF 20 to 25%, left ventricular systolic function severely reduced, akinesis of the anterior/anterior apical septal aguilar otherwise moderate global hypokinesis. Since being discharged home he has been in ER 2 separate times. Initially was 2/2 to syncope and the last time was 2/2 to cough/pain. He was started on levaquin for cough at brittany visit and oxycodone. He has been having lower blood pressure since being discharged. He also has been having trouble completed his home HD and pull off fluid because of lower blood pressure. He pulled 1.3L yesterday. Normal tx he would pull 3L. He has been doing dialysis 4-5 days a week. He saw Cardiology yesterday who told him to stop Levaquin and lasix. They also decreased his metoprolol to once daily. He presents today due to SOB past 2-3 days. Over past 2-3 days he has been feeling pressure on his Left side and getting worse. "I can hardly breathe." He also has a dry cough. He is unable to lie down and sleeps sitting up which is normal for him. He occasionally gets sweats but denies fever or chills. He continues to have pain from rib fractures; however they are way better than they were 3 weeks ago. Allergies Allergy/AdvReac Type Severity Reaction Status Date / Time benzonatate Allergy Unknown told not Verified 11/01/21 16:59 to take ibuprofen Allergy Unknown told not Verified 11/01/21 16:59 to take baclofen AdvReac Severe sedation/co Verified 11/01/21 16:59 nfusion oxycodone AdvReac Intermediate Confusion Verified 11/01/21 16:59 FRED Inhibitors AdvReac Unknown Unknown Verified 11/01/21 16:59 Home Medications Medication Instructions Recorded Confirmed Type atorvastatin 40 mg tablet 40 mg PO HS 02/13/18 11/11/21 History clopidogrel 75 mg tablet 75 mg PO DAILY 02/13/18 11/11/21 History nitroglycerin 0.4 mg sublingual 0.4 mg sublingual DIRECTED PRN 02/13/18 11/11/21 History tablet (Nitrostat) Chest Pain omeprazole 20 mg capsule,delayed 40 mg PO QAM 02/13/18 11/11/21 History release aspirin 81 mg tablet,delayed 81 mg PO DAILY 06/10/20 11/11/21 History release hydralazine 100 mg tablet 100 mg PO BID PRN .. 10/14/20 11/11/21 History Epogen Inj 0 mg INJ DIRECTED 08/23/21 11/11/21 History amlodipine 5 mg tablet 5 mg PO DAILY 08/23/21 11/11/21 History Novolin 70-30 FlexPen U-100 15 units SC TID 10/21/21 11/11/21 History oxycodone 5 mg tablet 5 mg PO Q8H PRN pain #10 tabs 10/29/21 11/11/21 Rx metoprolol succinate 100 mg 100 mg PO DAILY 11/11/21 11/11/21 History tablet,extended release 24 hr Past Med/Surg History Medical History Acute left lumbar radiculopathy Anemia Bilateral carotid artery stenosis Monitored with Carotid Doppler q6 months. 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 Carotid artery stenosis Coronary artery disease Diabetes mellitus, insulin-dependent (IDDM or type I) DM I (diabetes mellitus, type I) Dyslipidemia ESRD (end stage renal disease) on dialysis GERD (gastroesophageal reflux disease) Gout Hemothorax, traumatic Hypertension Hypertensive urgency Labile hypertension Orthostatic hypotension Presence of artificial eye LEFT Ulcer of finger R third digit Weakness Surgical History History of discectomy LUMBAR History of eye surgery MULTIPLE EYE SURGERIES S/T COMPLICATIONS OF DIABETES INCLUDING DETACHED RETINA, DSEAK PROCEDURES, AND ENUCLEATION OF LEFT EYE Status post cardiac catheterization Status post coronary artery stent placement 2009, NO HX OF OR. [facility]. Family History Other Cancer Diabetes Gallbladder disease Heart disease Hypertension Social History Smoking Status: Never smoker Tobacco Type: Smokeless Tobacco (Dip or Chew) Second Hand Exposure: No; Do You Dip or Chew Tobacco: Yes; Hx Alcohol Use: No Hx Substance Use: No Preferred Language: Malian Communication Ability: Effective Visual Impairment: Blindness Stitcher Utility Required: No Beliefs That Will Affect Care: None marital status: Current Living Situation: Spouse current occupational status: disabled Other Information That Helps Us Care for You: No Feels Safe at Home: Yes Safety Concerns: Feels Safe At This Time Assistive Devices: Cane and Prosthesis Assistive Devices Comment: left eye Review of Systems Review of Systems: All systems reviewed & are unremarkable except as noted in HPI & below Physical Exam Physical Exam: Constitutional: Chronically ill appearing, vitals as above, NAD, sitting up in bed, pleasant, conversing easily Head: Normocephalic, Atraumatic Eyes: PERRL, conjunctivae normal, anicteric sclerae ENMT: external ear and nose normal, oropharynx normal Neck: trachea midline, no thyromegaly normal visual inspection Respiratory: normal respiratory effort, lungs clear to auscultation, decreased breath sounds mid to lower left lung bases with basilar crackles otherwise no wheeze, rales, rhonchi. Normal insp/exp effort, no accessory muscle use Cardiovascular: RRR, no murmur, b/l +1 edema with b/l venous stasis changes Vessels: no JVD or carotid bruit Chest: normal inspection of chest Abdomen: normal bowel sounds, soft, nontender, Musculoskeletal: no cyanosis or clubbing, AROM x4 Skin: no rashes, warm and dry normal turgor Neurologic: PERRL, EOMI, accommodation nl, no face palsy, no dysarthria CN's II-XI intact bilaterally and moves all extremities Psychiatric: A+Ox3, euthymic affect : deferred Results & Data Results & Data ([facility]) Vital Signs (Past 12 Hours) Vital Signs Temp Pulse Pulse Resp BP BP Pulse Ox 11/11/21 10:51 79 18 173/87 H 98 11/11/21 09:14 82 18 159/83 H 98 11/11/21 08:31 11/11/21 08:24 36.5 C 84 20 121/36 L 99 O2 Del Method 11/11/21 10:51 Room Air 11/11/21 09:14 Room Air 11/11/21 08:31 Room Air 11/11/21 08:24 Room Air Diagnostic Findings Chest X-Ray 11/11/21 08:42 XR chest 1V portable HISTORY: Shortness of breath. COMPARISON: Chest 11/01/2021. FINDINGS: No pneumothorax. The heart remains mildly enlarged. Small to moderate left pleural effusion and left basilar densities which have progressed in the interval. The right lung is clear. No evidence for pulmonary edema. Left-sided rib fractures are better appreciated on the prior abdomen and pelvis CT. IMPRESSION: 1. Slight increase in size in the small to moderate left pleural effusion/hemothorax and left basilar densities. 2. The patient's known left rib fractures are better appreciated on this prior abdomen and pelvis CT. No pneumothorax. ACT 112: Negative or not required by law. Electronically signed by: Eddie Cantor M.D. 11/11/2021 9:01 AM Medications Administered Medication List Discontinued Medications Morphine Sulfate (Morphine Sulfate 4 Mg/Ml 1 Ml Carp\\Vial) 4 mg IV NOW STA Stop: 11/11/21 10:57 Last Admin: 11/11/21 11:06 Dose: 4 mg Documented By: NMS ECG Rate (beats per minute): 84 Rhythm: normal sinus COVID-19 Results Results COVID-19 Adm Lab Results: RBC 3.28 M/uL (4.63-6.08) L 11/11/21 WBC 9.69 K/ul (4.8-10.8) 11/11/21 Hgb 10.2 g/dl (14.0-18.0) L 11/11/21 Hct 32.0 % (40.1-51.0) L 11/11/21 Plt Count 153 K/uL (130-400) 11/11/21 Neutrophils (%) (Auto) 66.7 % 11/11/21 Lymphocytes (%) (Auto) 9.9 % 11/11/21 Monocytes # (Auto) 1.54 K/uL (0.24-0.82) H 11/11/21 Eosinophils # (Auto) 0.61 K/uL (0-0.50) H 11/11/21 Immature Granulocyte % (Auto) 0.6 % 11/11/21 Neutrophils # (Auto) 6.46 K/uL (1.4-6.5) 11/11/21 Lymphocytes # (Auto) 0.96 K/uL (1.2-3.4) L 11/11/21 Monocytes # (Auto) 1.54 K/uL (0.24-0.82) H 11/11/21 Eosinophils # (Auto) 0.61 K/uL (0-0.50) H 11/11/21 Basophils # (Auto) 0.06 K/uL (0-0.2) 11/11/21 Immature Granulocyte # (Auto) 0.06 K/uL (0.00-0.02) H 11/11 Na 131 mmol/L (136-145) L 11/11/21 K 6.0 mmol/L (3.5-5.1) H 11/11/21 Cl 91 mmol/L (98-107) L 11/11/21 CO2 31 mmol/L (21-32) 11/11/21 Anion Gap 9 (3-11) 11/11/21 BUN 49 mg/dl (6-23) H 11/11/21 Creatinine 8.89 mg/dl (0.6-1.4) H* 11/11/21 BUN/Creatinine Ratio 5.5 (10-20) L 11/11/21 Glucose Level 77 mg/dl (70-99(Fasting)) 11/11/21 Ca 9.5 mg/dl (8.5-10.1) 11/11/21 PTT 31.3 Seconds (21.0-31.0) H 11/11/21 INR 1.2 (0.9-1.1) H 11/11/21 SARS-CoV-2, RNA, NAAT NEGATIVE (NEGATIVE) 11/11/21 Chest X-Ray 11/11/21 Code Status & VTE Plan Code Status FULL CODE VTE Prophylaxis Plan VTE Prophylaxis will be ordered: Yes Supervising Physician Co-Signing Physician Notes Patient was seen and examined with Ondina MULLIGAN at bedside. at bedside. Chart reviewed. Case discussed with Ondina and agree with the documentation above. In summary, this is a 46 year old male with h/o ESRD on home dialysis 4-5 times a week who presented to the ED with shortness of breath and chest pain. Pain was recently admitted 10/21-10/29 for fall with 5 left rib fractures with left hemothorax s/p pigtail chest tube insertion. Since discharge he has presented to the ED 10/30 for syncope and 11/01 for SOB with productive cough and chest pain and has been on levaquin from 11/01 until yesterday and was discontinued by cardio. He comes today with increasing SOB similar to when he had left hemothorax and states it is from increasing left pleural effusion and that he will feel better after thoracentesis. No fever, chills. Dry cough. Doesn't make urine and hence lasix was discontinued yesterday. Chest pain is improved from before. In ED, vitals stable, saturating well in room air and not in any distress. AAO, sitting in bed, chest clear except for decreased breath sounds in left lung base, heart sounds normal, abdomen benign, LLE with 2+ edema. Last HD yesterday but not able to pull off much due to low BP at home but currently BP elevated. Noted to be hyperkalemic with K 6 in ED and being given dextrose insulin and calcium gluconate in ED. CXR with increase in size of left pleural effusion. Will hold plavix and consult pulm for consideration of thoracentesis. Will consult nephro for dialysis. Will start on veltassa and recheck BMP later today. Will start on lidocaine patch and oxy prn for chest pain. Hb improved from before and doubt ongoing bleeding in the thorax. Rest as per the note above. (1) Multiple fractures of ribs of left side Encounter type: initial encounter Fracture type: closed Qualified Code(s): S22.42XA - Multiple fractures of ribs, left side, initial encounter for closed fracture (2) Fracture of lumbar spine Encounter type: initial encounter Fracture morphology: other fracture Fracture type: closed Lumbar vertebra fracture level: L4 Qualified Code(s): S32.048A - Other fracture of fourth lumbar vertebra, initial encounter for closed fracture
[2021-11-11] MEDS ORDERED: PATIROMER CALCIUM SORBITEX 8.4 GM PACK PO ONE (11:57)
[2021-11-11] MEDS ORDERED: fentaNYL citrate 100 MCG/2 ML VIAL IV STA (12:48)
[2021-11-11] MEDS ORDERED: DEXTROSE 50% 50 ML SYRINGE IV ONE (13:05)
[2021-11-11] MEDS ORDERED: GLUCOSE 10 TAB/TUBE PO PRN (14:10)
[2021-11-11] MEDS ORDERED: GLUCOSE 40% GEL 15 GM TUBE PO PRN (14:10)
[2021-11-11] MEDS ORDERED: GLUCAGON FOR INJ 1 MG VIAL SQ PRN (14:10)
[2021-11-11] MEDS ORDERED: CARBOHYDRATES FOR HYPOGLYCEMIA PO PRN (14:10)
[2021-11-11] MEDS ORDERED: DEXTROSE 50% 50 ML SYRINGE IV PRN (14:10)
[2021-11-11] MEDS: oxyCODONE HCL IR 5 MG TAB (IMMEDIATE RELEASE) PO PRN ×2 (14:50→21:14)
[2021-11-11] MEDS: ACETAMINOPHEN 325 MG TAB PO PRN (14:57)
[2021-11-11] MEDS: LIDOCAINE 5% 1 PATCH TD SCH (15:14)
[2021-11-11] MEDS ORDERED: LIDOCAINE 1% LOCAL 20 ML VIAL ONE (16:11)
[2021-11-11] MEDS: MoRPHine SULFATE 2 MG/ML CARP IV PRN ×4 (16:15→23:57)
[2021-11-11] MEDS ORDERED: VANCOMYCIN CONSULT ACTIVE PRN (16:43)
--- NOTE | 2021-11-11 16:44 | Pulmonary Consultation ---
Date of Consultation November 11, 2021 Assessment & Plan (1) Pleural effusion: (2) Chest pain: Plan Impression: 46-year-old male with end-stage renal disease on dialysis with recent history of rib fractures resulting in hemothorax and pigtail catheter placement. He presents today with recurrent chest pain and shortness of breath and reaccumulation of the pleural fluid. Bedside ultrasound was performed. The fluid appears loculated and complex. Recommendations: 1. Complex effusion: Differential would include organization of hemothorax versus potential parapneumonic effusion/empyema. Drainage is indicated. We discussed catheter thoracentesis versus pigtail catheter placement. Given the loculations, I think the patient would benefit from pigtail and potential mist 2 protocol to lyse the pleural adhesions and potentially improve pleural drainage. Risks and benefits were discussed with the patient including surgical intervention. He is agreeable to proceed with a trial of intrapleural fibrinolytics. 2. Chest pain: Secondary to pleural inflammation. Continue pain medications and will add morphine for pain unresponsive to oral medications. 3. Cannot exclude the possibility of pleural infection. Would place on broad- spectrum antibiotics including vancomycin and Unasyn pending pleural fluid analysis. If the pleural fluid appears benign, these can be discontinued. 4. Thanks for the opportunity participating the care of this patient. Feel free to contact us with questions or concerns History of Present Illness Attending Physician: Donald Richardson MD History of Present Illness Asked by hospitalist to evaluate this patient with recurrent pleural effusion. History is obtained from discussion with the patient and reviewed electronic medical record. Patient is a 46-year-old male with end-stage renal disease on dialysis. He suffered a fall and sustained several fractured ribs. He was hospitalized about 2-1/2 weeks ago with pleural effusion which turned out to be hemothorax. He required pigtail catheter placement. The tube was eventually discontinued and the patient was discharged home. He did good for about 10 days and then about 3 to 4 days ago noted increasing congestion and shortness of breath unrelieved by his dialysis. Last night it was so bad he thought about calling 911. He was unable to lie flat. He has had some subjective chills but no overt fevers. He was brought to the emergency room. Repeat chest x-ray was performed which revealed reaccumulation of the left-sided pleural effusion and the patient was admitted to the hospitalist service. Of note his potassium was also elevated. He continues to complain of significant pain on the left. It is pleuritic in nature. Allergies Allergy/AdvReac Type Severity Reaction Status Date / Time benzonatate Allergy Unknown told not Verified 11/01/21 16:59 to take ibuprofen Allergy Unknown told not Verified 11/01/21 16:59 to take baclofen AdvReac Severe sedation/co Verified 11/01/21 16:59 nfusion oxycodone AdvReac Intermediate Confusion Verified 11/01/21 16:59 FRED Inhibitors AdvReac Unknown Unknown Verified 11/01/21 16:59 Home Medications Medication Instructions Recorded Confirmed Type atorvastatin 40 mg tablet 40 mg PO HS 02/13/18 11/11/21 History clopidogrel 75 mg tablet 75 mg PO DAILY 02/13/18 11/11/21 History nitroglycerin 0.4 mg sublingual 0.4 mg sublingual DIRECTED PRN 02/13/18 11/11/21 History tablet (Nitrostat) Chest Pain omeprazole 20 mg capsule,delayed 40 mg PO QAM 02/13/18 11/11/21 History release aspirin 81 mg tablet,delayed 81 mg PO DAILY 06/10/20 11/11/21 History release hydralazine 100 mg tablet 100 mg PO BID PRN .. 10/14/20 11/11/21 History Epogen Inj 0 mg INJ DIRECTED 08/23/21 11/11/21 History amlodipine 5 mg tablet 5 mg PO DAILY 08/23/21 11/11/21 History Novolin 70-30 FlexPen U-100 15 units SC TID 10/21/21 11/11/21 History oxycodone 5 mg tablet 5 mg PO Q8H PRN pain #10 tabs 10/29/21 11/11/21 Rx metoprolol succinate 100 mg 100 mg PO DAILY 11/11/21 11/11/21 History tablet,extended release 24 hr Patient History Medical History Acute left lumbar radiculopathy Anemia Bilateral carotid artery stenosis Monitored with Carotid Doppler q6 months. 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 Carotid artery stenosis Coronary artery disease Diabetes mellitus, insulin-dependent (IDDM or type I) DM I (diabetes mellitus, type I) Dyslipidemia ESRD (end stage renal disease) on dialysis GERD (gastroesophageal reflux disease) Gout Hemothorax, traumatic Hypertension Hypertensive urgency Labile hypertension Orthostatic hypotension Presence of artificial eye LEFT Ulcer of finger R third digit Weakness Surgical History History of discectomy LUMBAR History of eye surgery MULTIPLE EYE SURGERIES S/T COMPLICATIONS OF DIABETES INCLUDING DETACHED RETINA, DSEAK PROCEDURES, AND ENUCLEATION OF LEFT EYE Status post cardiac catheterization Status post coronary artery stent placement 2009, NO HX OF IA. [facility]. Family History Other Cancer Diabetes Gallbladder disease Heart disease Hypertension Social History Smoking Status: Never smoker Tobacco Type: Smokeless Tobacco (Dip or Chew) Second Hand Exposure: No; Do You Dip or Chew Tobacco: Yes; Hx Alcohol Use: No Hx Substance Use: No Preferred Language: Persian Communication Ability: Effective Visual Impairment: Blindness Nuclear Physics Professor Required: No Beliefs That Will Affect Care: None marital status: Current Living Situation: Spouse current occupational status: disabled Other Information That Helps Us Care for You: No Feels Safe at Home: Yes Safety Concerns: Feels Safe At This Time Assistive Devices: Cane and Prosthesis Assistive Devices Comment: left eye Review of Systems Review of Systems: Please refer to admission H&P. No additions or deletions Physical Exam Constitutional: WD/WN, vitals as above Neck: trachea midline, no thyromegaly Respiratory: Auscultation: + diminished lung sounds Diminished breath sounds at the left lung base with dullness to percussion Cardiovascular: RRR, no murmur, no edema Gastrointestinal (Abdomen): normal bowel sounds, soft, nontender, no hepatosplenomegaly Musculoskeletal: Extremities: extremities normal to inspection Skin: no rashes, warm and dry Neurologic: Nonfocal exam Lymphatic: no cervical lymphadenopathy Results & Data Results & Data ([facility]) Vital Signs (Past 12 Hours) Vital Signs Temp Pulse Pulse Resp BP BP Pulse Ox 11/11/21 15:26 36.8 C 76 18 162/58 H 91 11/11/21 15:24 36.8 C 11/11/21 14:00 36.7 C 11/11/21 14:30 74 16 93 11/11/21 14:20 73 17 93 11/11/21 14:10 74 17 95 11/11/21 14:00 72 16 96 11/11/21 13:50 76 31 H 94 11/11/21 13:47 76 17 11/11/21 13:47 134/70 11/11/21 14:00 37.1 C 11/11/21 14:00 76 11/11/21 13:52 36.8 C 75 16 134/70 94 11/11/21 13:10 74 18 120/70 96 11/11/21 12:35 80 18 159/80 H 95 11/11/21 11:54 81 18 143/86 H 93 11/11/21 10:51 79 18 173/87 H 98 11/11/21 09:14 82 18 159/83 H 98 11/11/21 08:31 11/11/21 08:24 36.5 C 84 20 121/36 L 99 O2 Del Method 11/11/21 15:26 Room Air 11/11/21 15:24 11/11/21 14:00 11/11/21 14:30 11/11/21 14:20 11/11/21 14:10 11/11/21 14:00 11/11/21 13:50 11/11/21 13:47 11/11/21 13:47 11/11/21 14:00 11/11/21 14:00 11/11/21 13:52 Room Air 11/11/21 13:10 Room Air 11/11/21 12:35 Room Air 11/11/21 11:54 Room Air 11/11/21 10:51 Room Air 11/11/21 09:14 Room Air 11/11/21 08:31 Room Air 11/11/21 08:24 Room Air Critical Care Results & Data Vital Signs (Past 12 Hours) Vital Signs Temp Pulse Pulse Resp BP BP Pulse Ox 11/11/21 15:26 36.8 C 76 18 162/58 H 91 11/11/21 15:24 36.8 C 11/11/21 14:00 36.7 C 11/11/21 14:30 74 16 93 11/11/21 14:20 73 17 93 11/11/21 14:10 74 17 95 11/11/21 14:00 72 16 96 11/11/21 13:50 76 31 H 94 11/11/21 13:47 76 17 11/11/21 13:47 134/70 11/11/21 14:00 37.1 C 11/11/21 14:00 76 11/11/21 13:52 36.8 C 75 16 134/70 94 11/11/21 13:10 74 18 120/70 96 11/11/21 12:35 80 18 159/80 H 95 11/11/21 11:54 81 18 143/86 H 93 11/11/21 10:51 79 18 173/87 H 98 11/11/21 09:14 82 18 159/83 H 98 11/11/21 08:31 11/11/21 08:24 36.5 C 84 20 121/36 L 99 O2 Del Method 11/11/21 15:26 Room Air 11/11/21 15:24 11/11/21 14:00 11/11/21 14:30 11/11/21 14:20 11/11/21 14:10 11/11/21 14:00 11/11/21 13:50 11/11/21 13:47 11/11/21 13:47 11/11/21 14:00 11/11/21 14:00 11/11/21 13:52 Room Air 11/11/21 13:10 Room Air 11/11/21 12:35 Room Air 11/11/21 11:54 Room Air 11/11/21 10:51 Room Air 11/11/21 09:14 Room Air 11/11/21 08:31 Room Air 11/11/21 08:24 Room Air Lab & Micro Results (Past 24 Hours) RBC 3.28 M/uL (4.63-6.08) L 11/11/21 WBC 9.69 K/ul (4.8-10.8) 11/11/21 Hgb 10.2 g/dl (14.0-18.0) L 11/11/21 Hct 32.0 % (40.1-51.0) L 11/11/21 MCV 97.6 fL (80.0-100.0) 11/11/21 MCH 31.1 pg (25.0-34.0) 11/11/21 MCHC 31.9 g/dL (32.0-36.0) L 11/11/21 RDW Standard Deviation 67.8 fL (36.4-46.3) H 11/11/21 RDW Coefficient of Variation 18.9 % (11.5-14.5) H 11/11/21 Plt Count 153 K/uL (130-400) 11/11/21 MPV 8.9 fL (9.4-12.4) L 11/11/21 Neutrophils (%) (Auto) 66.7 % 11/11/21 Lymphocytes (%) (Auto) 9.9 % 11/11/21 Monocytes # (Auto) 1.54 K/uL (0.24-0.82) H 11/11/21 Eosinophils # (Auto) 0.61 K/uL (0-0.50) H 11/11/21 Immature Granulocyte % (Auto) 0.6 % 11/11/21 Neutrophils # (Auto) 6.46 K/uL (1.4-6.5) 11/11/21 Lymphocytes # (Auto) 0.96 K/uL (1.2-3.4) L 11/11/21 Monocytes # (Auto) 1.54 K/uL (0.24-0.82) H 11/11/21 Eosinophils # (Auto) 0.61 K/uL (0-0.50) H 11/11/21 Basophils # (Auto) 0.06 K/uL (0-0.2) 11/11/21 Immature Granulocyte # (Auto) 0.06 K/uL (0.00-0.02) H 11/11 Na 131 mmol/L (136-145) L 11/11/21 K 6.0 mmol/L (3.5-5.1) H 11/11/21 Cl 91 mmol/L (98-107) L 11/11/21 CO2 31 mmol/L (21-32) 11/11/21 Anion Gap 9 (3-11) 11/11/21 BUN 49 mg/dl (6-23) H 11/11/21 Creatinine 8.89 mg/dl (0.6-1.4) H* 11/11/21 Estimated GFR ( Amer) 7.3 ml/min 11/11/21 Estimated GFR (Non-Af Amer) 6.3 ml/min 11/11/21 BUN/Creatinine Ratio 5.5 (10-20) L 11/11/21 Glu 77 mg/dl (70-99(Fasting)) 11/11/21 Ca 9.5 mg/dl (8.5-10.1) 11/11/21 Calcium Level 9.5 mg/dl (8.5-10.1) 11/11/21 08:39 Prothromb Time International Ratio 1.2 (0.9-1.1) H 11/11/21 08 :39 Diagnostic Findings (Past 24 Hours) Chest X-Ray 11/11/21 08:42 XR chest 1V portable HISTORY: Shortness of breath. COMPARISON: Chest 11/01/2021. FINDINGS: No pneumothorax. The heart remains mildly enlarged. Small to moderate left pleural effusion and left basilar densities which have progressed in the interval. The right lung is clear. No evidence for pulmonary edema. Left-sided rib fractures are better appreciated on the prior abdomen and pelvis CT. IMPRESSION: 1. Slight increase in size in the small to moderate left pleural effusion/hemothorax and left basilar densities. 2. The patient's known left rib fractures are better appreciated on this prior abdomen and pelvis CT. No pneumothorax. ACT 112: Negative or not required by law. Electronically signed by: Eddie Cantor M.D. 11/11/2021 9:01 AM I & O Totals 24 Hours 11/10/21 11/11/21 11/12/21 06:59 06:59 06:59 Intake Total 60 / 60 Balance 60 / 60 Cumulative 11/11/21 08:14 thru 11/11/21 14:10 Intake Total 60 Balance 60 RT Ventilator Mngmt (Last Documented) Ventilator Ordered Settings Respiratory Rate 18 11/11/21 15:26 Ventilator - PT Measurements Respiratory Rate 18 PG Care Time/CCT Total # of Minutes Spent Total Time Spent with Patient: Total time spent is greater than 50% in coordination of care (as documented) at patient's floor/unit and/or counseling patient: Coding Level of Care Code 18317 Inpt Consult Level 4 Diagnoses Pleural effusion J90 Chest pain R07.9
--- NOTE | 2021-11-11 16:47 | Procedure Note ---
Procedure Note Date of Service November 11, 2021 Note Procedure: Diagnostic/therapeutic placement of 14 Kyrgyz locking pigtail skater intrapleural catheter under ultrasound guidance Solid Waste Collection Worker: Dr. Silas Rodas Indication: Pleural effusion, complex Consent: Signed by patient and verified with timeout prior to procedure Anesthesia: 8 mL's 1% lidocaine without epinephrine local. Procedure: Consent was verified and timeout performed. Appropriate imaging studies were reviewed prior to the procedure. Patient was placed in a seated position and limited thoracic ultrasound was performed of the left chest. A small to moderate sized effusion was noted with compressive atelectasis and intrapleural fibrin stranding and loculations. Site appropriate for pigtail catheter placement was selected. The skin was prepped and draped in normal sterile fashion. Lidocaine was used for local analgesia. Fluid was aspirated via the finder needle. A small skin brenden was made with the scalpel and the syringe was withdrawn leaving the needle in place. A wire was passed through the needle and the needle withdrawn leaving the wire in the pleural space. Serial dilators were used to dilate the tract and eventually a 14 Kyr[place]z pigtail locking skater catheter was advanced over the wire into the pleural space. The wire and stiffening catheter were removed and the pigtail mechanism locked in place. Tube was secured with the skater retaining dressing and Tegaderm was placed over the top. 60 mL of cloudy fluid was aspirated and sent for microbiologic and chemical analysis. The tube was then attached to 20 cm of wall suction. Will initiate mist 2 protocol to try and achieve intrapleural fibrinolysis. Post procedure chest x-ray is pending Fluid was sent for cell count differential, gram stain and culture, LDH, pH, total protein, and glucose. The patient tolerated the procedure well without obvious complication Coding CPT Codes Pulmonary/Thoracic - Pulmonary and Thoracic: 62438 Pleural drainage w/imaging ([id number]) Pulmonary/Thoracic - Pulmonary and Thoracic: 64690 Lyse chest fibrin initial day ([id number]) [facility] [place] Procedure Codes (Charges) Pulmonary/Thoracic Procedure 1: Pulmonary and Thoracic: 16022 Pleural drainage w/imaging Procedure 2: Pulmonary and Thoracic: 95110 Lyse chest fibrin initial day
--- NOTE | 2021-11-11 17:03 | XRay Report ---
XR chest 1V portable CLINICAL HISTORY: S/P chest tube TECHNIQUE: Single frontal radiograph of the chest was obtained. Comparison: Comparison is made to chest radiograph 11/11/2021 FINDINGS: A left pigtail catheter is seen and appears to terminate in the thoracic cavity, although the turn of the pigtail appears to extend outside the chest cavity. The cardiomediastinal silhouette is stable. Left atelectasis is noted. Moderate right pleural effusion is unchanged from prior exam. There is no evidence of pneumothorax. IMPRESSION: Interval placement of left chest tube. The tip appears to be within the thoracic cavity, although the more proximal portion of the turn of the pigtail appears to lie outside the thoracic cavity. No evid ence of pneumothorax. ACT 112: Negative or not required by law. Electronically signed by: Hema Matta M.D. 11/11/2021 5:01 PM
[2021-11-11] MEDS: INSULIN ASPART PER UNIT SC SCH ×2 (17:13→22:25)
[2021-11-11] MEDS ORDERED: MoRPHine SULFATE 4 MG/ML 1 ML CARP\\VIAL ONE (17:20)
[2021-11-11 17:36] LABS: Appearance Pleural Fluid Cloudy; Color Pleural Fluid Amber; RBC Pleural Fluid (A) 45000 /uL; Source Pleural Fluid L.LUNG; WBC Pleural Fluid (A) 293 /uL
--- NOTE | 2021-11-11 17:37 | Procedure Note ---
Procedure Note Date of Service November 11, 2021 Note Procedure: Replacement of 14 Irish pigtail skater catheter in left pleural space Jewel Hole Rough Opener: Dr. Silas Rodas Indication: Pleural effusion Consent: Signed by patient and verified with timeout prior to procedure Anesthesia: 10 mL's 1% lidocaine without epinephrine local. Procedure: The previously placed pigtail catheter appeared to be just barely in the thoracic cavity. Given the pigtail nature of the catheter, it was not felt to be prudent to try and advance it. Decision was made to replace it. The patient was placed in a seated position. The existing catheter was removed. The skin and subcutaneous tract was again anesthetized with lidocaine. An 18- gauge needle was used to enter the pleural space. A wire was passed through the needle into the pleural space without resistance. Cloudy bianca fluid was aspirated. Serial dilators were passed over the wire with minimal resistance. A 14 Irish skater catheter was then advanced over the wire into the pleural space. It was advanced about 4 cm further than the prior catheter. The wire was withdrawn. The locking mechanism was secured. I was able to aspirate fluid without difficulty. The tube was attached to the [employer] system and a repeat chest x-ray is pending. The patient tolerated the procedure well without obvious complication Coding CPT Codes Pulmonary/Thoracic - Pulmonary and Thoracic: 58568 Pleural drainage w/o imaging ([id number]) [facility] [place] Codes (Charges[place] Pulmonary/Thoracic Procedure 1: Pulmonary and Thoracic: 88326 Pleural drainage w/o imaging
[2021-11-11 17:39] LABS: Basophils, Fluid 4 %; Eosinophils, Fluid 9 %; Lymphocytes, Fluid 37 %; Mono,Macrophage,Mesothelial 4 %; Neutrophils, Fluid 46 %
--- NOTE | 2021-11-11 17:51 | Pharmacy Report ---
Pharmacy [facility] Short Note - Date of Service November 11, 2021 - Assessment & Plan Assessment 46 year old M receiving vancomycin/Unasyn for treatment of L pleural effusion. Pertinent microbiologic data includes: N/A. Day # 1 of antimicrobial therapy. Plan Vancomycin * Patient is on hemodialysis 5 x / week at home. * Patient ordered vancomycin 2000 mg x1 (20 mg/kg) * Check vancomycin random tomorrow morning. Pharmacy will continue to follow and will adjust dose/frequency as necessary. Thank you.
[2021-11-11 17:52] LABS: Total Protein Pleural Fluid 4.7 gm/dl
--- NOTE | 2021-11-11 17:53 | Nephrology Consultation ---
Date of Consultation November 11, 2021 Assessment & Plan (1) Hyperkalemia: -stat recheck bmp ordered and reviewed -plan 2 hr treatment later this evening -reassess need for treatment again in am (2) ESRD (end stage renal disease) on dialysis: in oligoanuric patient will limit fluid intake to 1.5L daily heparin free HD later today for clearance w/ UF as tolerated up to 2L likley to need another tx in am but will plan to assess first (3) Pleural effusion: s/p chest pigtail placement today w/ complicated procedure; per pulmonary; for intrapleural fibrinolytics this evening History of Present Illness Reason for Consultation: ESRD, hyperkalemia Requesting Physician: Dr Richardson Attending Physician: Donald Richardson MD History of Present Illness 46 y/o M whom I'm asked to see for hyperkalemia and dialysis needs was admitted this AM to the ICU with complex L pleural effusion after presenting with 2-3 days of worsening dyspnea in the wake of recent admission for hemothorax after rib fracture and recent hypotension with inability to remove adequate fluid w/ HD. PMH includes diabetes type 1, ESRD on home hemodialysis 4 times a week, chronic systolic HF recently worsened to EF 20-25%, hypertension, CAD, NAFLD. He was admitted here 10/21 to 10/29/2021 after he fell in the shower > he fractured left ribs 9 through 12 posteriorly, 10 through 11 laterally and a left articular process fracture L4 and L5. The rib fractures were complicated by 1.6L hemothorax and a large pleural effusion needing a chest tube.He also had during that stay an episode of sustained polymorphic V. tach with syncope on 10/24 attributed to hyperkalemia and Cipro use/prolonged QTc in the setting of structural heart disease. he came to ER for 2 visits since hospital d/c, once for syncope and other for cough/uncontrolled pain; started on levaquin at second visit and oxycodone. he called cardiology clinic yesterday w/ c/o symptomatic hypotension with SBP dropping to 60-70s w/ near syncope and w/ reading in mid 90s on day of the call, which was made while pt was out shopping. He was advised to stop levaquin and lasix and to change coreg to metoprolol succinate daily. no dyspnea mentioned. with lower BP, limited UF on dialysis > had 1.3L off yesterday, less than half of his norm. His UOP has dropped off considerably in the past weeks but no new/worrisome dysuria or gross hematuria. He has a dry cough; no f/c. no change in chronic orthopnea. His presenting K today was 6 this am. pulmonary evaluated the patient and placed a pigtail catheter with plan for trial of intrapleural fibrinolytics; he was also started empirically on vanco and unasyn. currently he is breathing better; cough improved; does have some worsening L thorax pain at pigtail site; no n/v; BP has rebounded somewhat; mild LE edema which is controlled. Allergies Allergy/AdvReac Type Severity Reaction Status Date / Time benzonatate Allergy Unknown told not Verified 11/01/21 16:59 to take ibuprofen Allergy Unknown told not Verified 11/01/21 16:59 to take baclofen AdvReac Severe sedation/co Verified 11/01/21 16:59 nfusion oxycodone AdvReac Intermediate Confusion Verified 11/01/21 16:59 FRED Inhibitors AdvReac Unknown Unknown Verified 11/01/21 16:59 Home Medications Medication Instructions Recorded Confirmed Type atorvastatin 40 mg tablet 40 mg PO HS 02/13/18 11/11/21 History clopidogrel 75 mg tablet 75 mg PO DAILY 02/13/18 11/11/21 History nitroglycerin 0.4 mg sublingual 0.4 mg sublingual DIRECTED PRN 02/13/18 11/11/21 History tablet (Nitrostat) Chest Pain omeprazole 20 mg capsule,delayed 40 mg PO QAM 02/13/18 11/11/21 History release aspirin 81 mg tablet,delayed 81 mg PO DAILY 06/10/20 11/11/21 History release hydralazine 100 mg tablet 100 mg PO BID PRN .. 10/14/20 11/11/21 History Epogen Inj 0 mg INJ DIRECTED 08/23/21 11/11/21 History amlodipine 5 mg tablet 5 mg PO DAILY 08/23/21 11/11/21 History Novolin 70-30 FlexPen U-100 15 units SC TID 10/21/21 11/11/21 History oxycodone 5 mg tablet 5 mg PO Q8H PRN pain #10 tabs 10/29/21 11/11/21 Rx metoprolol succinate 100 mg 100 mg PO DAILY 11/11/21 11/11/21 History tablet,extended release 24 hr Patient History Medical History Acute left lumbar radiculopathy Anemia Bilateral carotid artery stenosis Monitored with Carotid Doppler q6 months. 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 Carotid artery stenosis Coronary artery disease Diabetes mellitus, insulin-dependent (IDDM or type I) DM I (diabetes mellitus, type I) Dyslipidemia ESRD (end stage renal disease) on dialysis GERD (gastroesophageal reflux disease) Gout Hemothorax, traumatic Hypertension Hypertensive urgency Labile hypertension Orthostatic hypotension Presence of artificial eye LEFT Ulcer of finger R third digit Weakness Surgical History History of discectomy LUMBAR History of eye surgery MULTIPLE EYE SURGERIES S/T COMPLICATIONS OF DIABETES INCLUDING DETACHED RETINA, DSEAK PROCEDURES, AND ENUCLEATION OF LEFT EYE Status post cardiac catheterization Status post coronary artery stent placement 2009, NO HX OF [facility]. 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: No Beliefs That Will Affect Care: None marital status: Current Living Situation: Spouse current occupational status: disabled Other Information That Helps Us Care for You: No Feels Safe at Home: Yes Safety Concerns: Feels Safe At This Time Assistive Devices: Cane and Prosthesis Assistive Devices Comment: left eye Review of Systems Review of Systems: All systems reviewed & are unremarkable except as noted in HPI & below Physical Exam Constitutional: well developed, well nourished, cooperative and + edematous (mild facial edema); no acute distress Eyes: EOM intact bilaterally ENMT: Ears: no external ear abnormality Nose: no external nose abnormality Mouth: + dry oral mucous membranes Neck: no nuchal rigidity Respiratory: normal respiratory effort (L pigtail post thorax) Auscultation: + diminished lung sounds (L) and + crackles (L posterior) Cardiovascular: Rate/Rhythm: regular rate and regular rhythm Extremities: + edema (trace BLE in TEDS) and + AV fistula (+t/b L wrist) Gastrointestinal (Abdomen): Inspection/Auscultation: normal bowel sounds Percussion/Palpation: abdomen soft; abdomen nontender Musculoskeletal: Extremities: strength 5/5 throughout Skin: no rashes, warm and dry Neurologic: hoover, fluent speech, no tremor Psychiatric: Orientation: oriented x 3 Speech: normal rate/rhythm/volume of speech Results & Data ([facility]) Vital Signs (Past 12 Hours) Vital Signs Temp Pulse Pulse Resp BP BP Pulse Ox 11/11/21 17:00 74 22 96 11/11/21 16:01 76 11 L 96 11/11/21 16:01 110/68 11/11/21 16:00 75 11 L 98 11/11/21 15:22 162/58 H 11/11/21 15:22 75 15 92 11/11/21 15:00 74 18 87 L 11/11/21 16:00 72 11/11/21 15:26 36.8 C 76 18 162/58 H 91 11/11/21 14:10 11/11/21 15:24 36.8 C 11/11/21 14:00 36.7 C 11/11/21 14:30 74 16 93 11/11/21 14:20 73 17 93 11/11/21 14:10 74 17 95 11/11/21 14:00 72 16 96 11/11/21 13:50 76 31 H 94 11/11/21 13:47 76 17 11/11/21 13:47 134/70 11/11/21 14:00 37.1 C 11/11/21 14:00 76 11/11/21 13:52 36.8 C 75 16 134/70 94 11/11/21 13:10 74 18 120/70 96 11/11/21 12:35 80 18 159/80 H 95 11/11/21 11:54 81 18 143/86 H 93 11/11/21 10:51 79 18 173/87 H 98 11/11/21 09:14 82 18 159/83 H 98 11/11/21 08:31 11/11/21 08:24 36.5 C 84 20 121/36 L 99 O2 Del Method 11/11/21 17:00 11/11/21 16:01 11/11/21 16:01 11/11/21 16:00 11/11/21 15:22 11/11/21 15:22 11/11/21 15:00 11/11/21 16:00 11/11/21 15:26 Room Air 11/11/21 14:10 Room Air 11/11/21 15:24 11/11/21 14:00 11/11/21 14:30 11/11/21 14:20 11/11/21 14:10 11/11/21 14:00 11/11/21 13:50 11/11/21 13:47 11/11/21 13:47 11/11/21 14:00 11/11/21 14:00 11/11/21 13:52 Room Air 11/11/21 13:10 Room Air 11/11/21 12:35 Room Air 11/11/21 11:54 Room Air 11/11/21 10:51 Room Air 11/11/21 09:14 Room Air 11/11/21 08:31 Room Air 11/11/21 08:24 Room Air Laboratory Results 11/11/21 08:39 11/11/21 08:39 Diagnostic Findings TTE 10/25 EF 20 to 25%, left ventricular systolic function severely reduced, akinesis of the anterior/anterior apical septal aguilar otherwise moderate global hypokinesis cxr 1. Slight increase in size in the small to moderate left pleural effusion/hemothorax and left basilar densities. 2. The patient's known left rib fractures are better appreciated on this prior abdomen and pelvis CT. No pneumothorax.
[2021-11-11] MEDS ORDERED: VANCOMYCIN HCL 2,000 MG in SODIUM CHLORIDE 0.9% 500 ML IV ONE (18:00)
--- NOTE | 2021-11-11 18:09 | Electrocardiogram Report ---
Test Reason : Blood Pressure : / mmHG Vent. Rate : 084 BPM Atrial Rate : 084 BPM P-R Int : 200 ms QRS Dur : 102 ms QT Int : 386 ms P-R-T Axes : 017 -47 120 degrees QTc Int : 456 ms Normal sinus rhythm Left axis deviation Abnormal ECG When compared with ECG of 01-NOV-2021 14:22, T wave inversion more evident in Lateral leads Confirmed by Moses Alarcon ([id number]) on 11/11/2021 6:08:19 PM Referred By: REFERRED SELF Confirmed By:Roni Alarcon
[2021-11-11] MEDS: INSULIN HUMAN NPH SC SCH (18:10)
[2021-11-11] MEDS: AMPICILLIN/SULBACTAM SOD 3,000 MG in 0.9 % SODIUM CHLORIDE 100 ML IV SCH (18:13)
[2021-11-11 18:17] LABS: BUN Creatinine Ratio 5.8 (10-20); Calcium 9.2 mg/dl (8.5-10.1); Creatinine Clr Calc Pharmacy 11.7 ml/min; Est GFR (African American) 7.1 ml/min; Est GFR (Non-African American) 6.1 ml/min; Potassium 6.4 mmol/L (3.5-5.1)
--- NOTE | 2021-11-11 18:37 | XRay Report ---
SINGLE VIEW CHEST CLINICAL HISTORY: Chest tube replacement. FINDINGS: An AP, portable, upright chest radiograph is compared to study performed earlier the same d ay 11/11/2021 and correlated with chest CT dated 10/31/2021. The heart is enlarged noting atheroscleroti c calcification of the thoracic aorta. The pulmonary vasculature is noncongested. A left chest tube h as been repositioned. The tip projects at or possibly below the left hemidiaphragm. There is a modera te left pleural effusion with consolidation of the left lower lobe. Loculated fluid is suggested rick g the left major fissure. The right lung appears clear noting basilar atelectasis. No pneumothorax is seen. Known left-sided rib fractures are not well-visualized. IMPRESSION: 1. A left-sided chest tube has been repositioned as above. The tip projects at or possibly below the left hemidiaphragm. 2. A moderate left pleural effusion with associated consolidation of the left lower lung is unchanged , as is loculated fluid along the left major fissure. 3. The right lung appears clear. 4. No pneumothorax is identified. 5. Cardiomegaly without radiographic evidence of congestive failure. ACT 112: Negative or not required by law. Electronically signed by: Albin De La Rosa M.D. 11/11/2021 6:35 PM
[2021-11-11] MEDS ORDERED: SODIUM CHLORIDE 0.9% 1000ML 1,000 ML IV PRN (19:32)
[2021-11-11] MEDS: ALTEPLASE, RECOMBINANT 10 MG in SYRINGE 50 ML IPL SCH (19:35)
[2021-11-11] MEDS: DORNASE ALFA 5 ML in SYRINGE 25 ML IPL SCH (20:47)
[2021-11-11] MEDS: ATORVASTATIN 40 MG TAB PO SCH (22:28)
[2021-11-12] MEDS: MoRPHine SULFATE 2 MG/ML CARP IV PRN ×7 (02:33→22:54)
[2021-11-12] MEDS: oxyCODONE HCL IR 5 MG TAB (IMMEDIATE RELEASE) PO PRN ×3 (04:14→19:29)
[2021-11-12] MEDS: AMPICILLIN/SULBACTAM SOD 3,000 MG in 0.9 % SODIUM CHLORIDE 100 ML IV SCH ×2 (06:26→16:45)
[2021-11-12] MEDS: ALTEPLASE, RECOMBINANT 10 MG in SYRINGE 50 ML IPL SCH ×2 (06:27→23:09)
--- NOTE | 2021-11-12 07:40 | XRay Report ---
XR chest 1V portable HISTORY: Chest tube ? MIST 2 protocol COMPARISON: Chest 11/11/2021. FINDINGS: The left-sided chest tube has been pulled back and now resides within the left lateral lung base. Small left pleural effusion and left basilar densities have improved. No pneumothorax. The rig ht lung is clear. The heart remains enlarged. There are low lung volumes. IMPRESSION: 1. Left-sided chest tube has been pulled back and now resides within the left lateral lung base. 2. The small left pleural effusion and left basilar densities have improved. ACT 112: Negative or not required by law. Electronically signed by: Eddie Cantor M.D. 11/12/2021 7:38 AM
[2021-11-12] MEDS: INSULIN HUMAN NPH SC SCH ×2 (07:43→16:16)
[2021-11-12] MEDS: INSULIN ASPART PER UNIT SC SCH ×4 (07:43→21:11)
[2021-11-12] MEDS: amLODIPine BESYLATE 5 MG TAB PO SCH (07:44)
[2021-11-12] MEDS: METOPROLOL SUCC 50MG EXT REL TAB PO SCH (07:44)
[2021-11-12] MEDS: PANTOprazole 40 MG TAB PO SCH (07:45)
[2021-11-12] MEDS: LIDOCAINE 5% 1 PATCH TD SCH (07:45)
[2021-11-12] MEDS: ASPIRIN 81 MG ECTAB PO SCH (07:46)
[2021-11-12] MEDS: DORNASE ALFA 5 ML in SYRINGE 25 ML IPL SCH ×2 (07:51→19:52)
[2021-11-12] MEDS: ACETAMINOPHEN 325 MG TAB PO PRN ×4 (08:17→23:43)
[2021-11-12] MEDS ORDERED: HEPARIN SOD (PORCINE) 1000 UNIT/ML IV ONE (11:27)
[2021-11-12] MEDS ORDERED: SODIUM CHLORIDE 0.9% 1000ML 1,000 ML IV PRN (11:27)
[2021-11-12] MEDS: PATIROMER CALCIUM SORBITEX 8.4 GM PACK PO SCH (11:30)
[2021-11-12] MEDS ORDERED: EPOETIN ALFA 4,000 UNIT/ML VIAL IV SCH (12:00)
[2021-11-12 12:08] LABS: Calcium 8.2 mg/dl (8.5-10.1); Creatinine Clr Calc Pharmacy 13.2 ml/min; Est GFR (African American) 8.2 ml/min; Est GFR (Non-African American) 7.1 ml/min; Potassium 6.2 mmol/L (3.5-5.1)
--- NOTE | 2021-11-12 12:25 | Pulmonology Progress Note ---
Date of Service November 12, 2021 Assessment & Plan (1) Pleural effusion: (2) Chest pain: Plan Impression: 46-year-old male with end-stage renal disease on dialysis with recent history of rib fractures resulting in hemothorax and pigtail catheter placement. He returned to the hospital with recurrent chest pain and shortness of breath and reaccumulation of the pleural fluid. 14 [place] pigtail catheter was placed under ultrasound guidance 11/11/2021 and mist 2 protocol has been initiated Recommendations: 1. Complex effusion: Suspicion for partially treated parapneumonic effusion. Continue 14 [place] catheter with mist 2 protocol. Follow serial chest x-ray. Given the reaccumulation of fluid, may need a noncontrast CT of the chest before the catheter is removed. Continue daily chest x-rays. 2. Chest pain: Secondary to pleural inflammation. Continue pain medications. The catheter has migrated. Nursing well need to ensure that it does not migrate further. 3. Day #2 Unasyn vancomycin. Continue antibiotics for now pending cultures. 4. Thanks for the opportunity participating the care of this patient. Feel free to contact us with questions or concerns. Discussed with hospitalist. Admission and Anticipated Discharge Date Admission Date: November 11, 2021 Subjective Patient seen and examined. EMR reviewed. Discussed with patient at bedside. The patient did reasonably well overnight. He continues to have pain with manipulation of the catheter. He is not had fevers chills or night sweats overnight. He is not coughing or expectorating phlegm. Review of Systems Review of Systems: All systems reviewed & are unremarkable except as noted in Subjective Physical Exam Constitutional: WD/WN, vitals as above Neck: trachea midline, no thyromegaly Respiratory: Auscultation: + diminished lung sounds Cardiovascular: RRR, no murmur, no edema Gastrointestinal (Abdomen): normal bowel sounds, soft, nontender, no hepatosplenomegaly Musculoskeletal: Extremities: extremities normal to inspection Skin: no rashes, warm and dry Lymphatic: no cervical lymphadenopathy Results & Data Results & Data ([facility]) Vital Signs (Past 12 Hours) Vital Signs Temp Pulse Resp BP Pulse Ox O2 Del Method 11/12/21 08:00 80 15 98 11/12/21 07:35 36.9 C 130/80 Room Air 11/12/21 07:35 79 11 L 95 11/12/21 07:00 79 10 L 92 11/12/21 07:35 Room Air 11/12/21 04:30 36.5 C 80 20 127/87 96 Room Air Chest tube output: 1925 yesterday Laboratory Results 11/11/21 08:39 11/12/21 11:04 Microbiology 11/11/21 15:00 Pleural Fluid Gram Stain - Final, no organisms, few mononucleated cells, culture pending Pleural fluid analysis: Cell count differential: 46% neutrophils, 37% lymphocytes, 9% eosinophils, and 4% basophils with 4% monocytes Pleural total protein 4.7 Pleural LDH 402 Pleural glucose 73 Pleural pH not performed. Diagnostic Findings Chest x-ray this morning was reviewed. There is decrease in the left effusion with some migration of the catheter but it still appears to be within the thoracic cavity. PG Care Time/CCT Total # of Minutes Spent Total Time Spent with Patient: Total time spent is greater than 50% in coordination of care (as documented) at patient's floor/unit and/or counseling patient: Coding Level of Care Code 61679 Subseq Hosp Care Lvl 2 Diagnoses Pleural effusion J90 Chest pain R07.9
--- NOTE | 2021-11-12 13:33 | Pharmacy Report ---
Pharmacy PK ABX Note - Date of Service November 12, 2021 - Assessment and Plan Assessment 46 year old M receiving vanc/unasyn for treatment of L pleural effusion. Pertinent microbiologic data includes: N/A. Day # 2 of antimicrobial therapy. Plan Vancomycin * Loading dose: 2000 mg IV x 1 prior to/ during dialysis * Maintenance dose: 500 mg IV x 1 after dialysis * Random level ordered for: 11/13/21 Pharmacy will continue to follow and will adjust dose/frequency as necessary. Thank you. Pharmacy has transitioned to AUC monitoring for vancomycin. AUC/[place] is the preferred PK/PD target and is associated with decreased risk of nephrotoxicity compared to traditional trough targets.
[2021-11-12] MEDS ORDERED: MIDODRINE HCL 2.5 MG TAB PO STA (13:44)
--- NOTE | 2021-11-12 14:39 | Hospitalist Progress Note ---
Date of Service November 12, 2021 Assessment & Plan (1) SOB (shortness of breath): (2) Pleural effusion: (3) Acute hyperkalemia: (4) ESRD (end stage renal disease) on dialysis: (5) DM I (diabetes mellitus, type I): (6) HFrEF (heart failure with reduced ejection fraction): (7) Multiple fractures of ribs of left side: (8) Fracture of lumbar spine: Plan This is a 46-year-old male who has a significant past medical history of type 1 diabetes mellitus, end-stage renal disease on home hemodialysis 5 days a week, chronic HFrEF, HTN, hyperparathyroidism, fatty liver disease, anemia of renal disease, GERD who presents to ED secondary to SOB. SOB Left Pleural Effusion - recurrent Recent Fall with Multiple L sided rib fractures Traumatic hemothorax Recent fx of lumbar spine, traumatic CXR showed slight increase in size in the small to moderate left pleural effusion/hemothorax and left basilar densities. S/P Pigtail chest tube insertion for the Left sided pleural effusion performed by Dr. Rodas Fluid was sent for cell count differential, gram stain and culture, LDH, pH, total protein, and glucose. Pulmonology on board CXR this morning showed Left-sided chest tube has been pulled back and now resides within the left lateral lung base. ESRD on HD On home dialysis, recently unable to complete full tx due to lower BP Currently is getting dialysis Nephrology on board Hyperkalemia Received in ED Calc gluc, D5 and insulin Continue [place] daily K on admission 6, then increased to 6.4 Potassium today 6.2 Continue monitor BMP Hypotension Will hold amlodipine Midodrine x1 given Continue monitor BP T1DM recent hba1c 8.3 on 10/22 On Novolin 70/30 at home Continue NPH and insulin sliding scale Continue monitor BS Anemia of renal disease Hgb stable at 10.2 Chronic HFrEF hx of Vtach HTN continue asa, statin, metoprolol metoprolol recent reduced to daily due to lower BP Continue to hold Plavix for now. will discuss with Pulm about when to resume it last echo 10/25 EF 20 to 25%, left ventricular systolic function severely reduce d, akinesis of the anterior/anterior apical septal aguilar otherwise moderate global hypokinesis DVT ppx: SCDS FULL CODE Admission and Anticipated Discharge Date Admission Date: November 11, 2021 Subjective Pt was seen and examined for follow up for left pleural effusion and low BP Lying in bed with no acute distress distress getting HD He said that he is having tenderness in left side of his chest His BP was low early and he received 1L IVF BP is stable during HD Denies any chest pain, palpitation, dizziness and SOB Review of Systems Review of Systems: All systems reviewed & are unremarkable except as noted in Subjective Physical Exam Physical Exam: General- No acute distress Head- atraumatic Eyes- PERRL, EOMI, ENT- oropharynx clear Neck- supple, no JVD Lungs- +diminished BS Heart- regular rhythm; no murmur Abdomen- normal bowel sounds, soft, nontender Extremities- no calf tenderness Neuro- alert, oriented x 3; PERRL, EOMI; no facial palsy; no dysarthria Skin- warm & dry Results & Data Results & Data ([facility]) Vital Signs (Past 12 Hours) Vital Signs Temp Pulse Pulse Resp BP Pulse Ox O2 Del Method 11/12/21 14:00 68 110/36 L 11/12/21 13:30 70 90/37 L 11/12/21 13:15 36.7 C 68 11/12/21 12:00 70 19 91 Room Air 11/12/21 10:00 74 17 11/12/21 08:00 80 15 98 11/12/21 07:35 36.9 C 130/80 Room Air 11/12/21 07:35 79 11 L 95 11/12/21 07:00 79 10 L 92 11/12/21 07:35 Room Air 11/12/21 04:30 36.5 C 80 20 127/87 96 Room Air (1) Multiple fractures of ribs of left side Encounter type: initial encounter Fracture type: closed Qualified Code(s): S22.42XA - Multiple fractures of ribs, left side, initial encounter for closed fracture (2) Fracture of lumbar spine Encounter type: initial encounter Fracture morphology: other fracture Fracture type: closed Lumbar vertebra fracture level: L4 Qualified Code(s): S32.048A - Other fracture of fourth lumbar vertebra, initial encounter for closed fracture
--- NOTE | 2021-11-12 15:02 | Dialysis Progress Note ---
Date of Service November 12, 2021 Assessment & Plan Admission and Anticipated Discharge Date Admission Date: November 11, 2021 Subjective S--Bp was low even before Dialysis start. AVF fine. c/o rib pain. Chest CTA CVS--RRR Abd--sfot nontender. ext--1+ edema. Labs reviewed. even today its 6.2 A/p 47/M with ESRD on Home HD now admitted with fall and rib fracture and hemothorax s/p Pigtail catheter. ESRD--had HD 2 hrs for high K yesterday. Will do 3hrs 30 mins and take 1-1.5 kilo off if we can. Did get midodrine for low BP. persistent hyperkalemia so will also do 1hr on 1 k bath. Results & Data ([facility]) Vital Signs (Past 12 Hours) Vital Signs Temp Pulse Pulse Resp BP Pulse Ox O2 Del Method 11/12/21 14:30 68 89/43 L 11/12/21 14:00 68 110/36 L 11/12/21 13:30 70 90/37 L 11/12/21 13:15 36.7 C 68 11/12/21 12:00 70 19 91 Room Air 11/12/21 10:00 74 17 11/12/21 08:00 80 15 98 11/12/21 07:35 36.9 C 130/80 Room Air 11/12/21 07:35 79 11 L 95 11/12/21 07:00 79 10 L 92 11/12/21 07:35 Room Air 11/12/21 04:30 36.5 C 80 20 127/87 96 Room Air
[2021-11-12] MEDS ORDERED: VANCOMYCIN HCL 500 MG in DEXTROSE 5% 100 ML IV SCH (18:00)
[2021-11-12] MEDS: ATORVASTATIN 40 MG TAB PO SCH (20:00)
[2021-11-12] MEDS ORDERED: LOKELMA 10 GM PO SCH (21:00)
[2021-11-12] MEDS ORDERED: POLYETHYLENE (MIRALAX) 17 GM PACK PO STA (23:13)
[2021-11-12] MEDS: POLYETHYLENE (MIRALAX) 17 GM PACK PO PRN (23:38)
[2021-11-13] MEDS: AMPICILLIN/SULBACTAM SOD 3,000 MG in 0.9 % SODIUM CHLORIDE 100 ML IV SCH ×2 (05:29→18:04)
[2021-11-13] MEDS: ACETAMINOPHEN 325 MG TAB PO PRN ×4 (06:07→21:30)
[2021-11-13] MEDS: MoRPHine SULFATE 2 MG/ML CARP IV PRN ×5 (06:08→21:30)
[2021-11-13] MEDS: ALTEPLASE, RECOMBINANT 10 MG in SYRINGE 50 ML IPL SCH ×3 (06:17→18:39)
[2021-11-13 06:26] LABS: HBSAG NON-REACTIVE (NON-REACTIVE)
[2021-11-13] MEDS: DORNASE ALFA 5 ML in SYRINGE 25 ML IPL SCH ×2 (07:36→20:02)
--- NOTE | 2021-11-13 08:41 | XRay Report ---
XR chest 1V portable HISTORY: Left pleural effusion. Follow-up chest tube. Chest tube ? MIST 2 protocol COMPARISON: Chest 11/12/2021. FINDINGS: No pneumothorax. The heart remains mildly enlarged. The right lung is clear. The small to m oderate left pleural effusion and left basilar densities persist. The left lateral basal chest tube a ppears unchanged in position. IMPRESSION: 1. Small to moderate left pleural effusion and left basilar densities remain unchanged. 2. The left lateral basal chest tube is unchanged in position. This appears to be just within the [address] st wall/pleural cavity. ACT 112: Negative or not required by law. Electronically signed by: Eddie Cantor M.D. 11/13/2021 8:39 AM
[2021-11-13] MEDS: INSULIN HUMAN NPH SC SCH ×2 (09:01→18:03)
[2021-11-13] MEDS: INSULIN ASPART PER UNIT SC SCH ×4 (09:01→20:02)
[2021-11-13] MEDS: ASPIRIN 81 MG ECTAB PO SCH (09:02)
[2021-11-13] MEDS: oxyCODONE HCL IR 5 MG TAB (IMMEDIATE RELEASE) PO PRN (09:02)
[2021-11-13] MEDS: LIDOCAINE 5% 1 PATCH TD SCH (09:05)
[2021-11-13] MEDS: METOPROLOL SUCC 50MG EXT REL TAB PO SCH (09:05)
[2021-11-13] MEDS: PANTOprazole 40 MG TAB PO SCH (09:05)
[2021-11-13] MEDS: amLODIPine BESYLATE 5 MG TAB PO SCH (09:07)
--- NOTE | 2021-11-13 12:08 | Pulmonology Progress Note ---
Date of Service November 13, 2021 Assessment & Plan (1) Pleural effusion: (2) Chest pain: Plan Impression: 46-year-old male with end-stage renal disease on dialysis with recent history of rib fractures resulting in hemothorax and pigtail catheter placement. He returned to the hospital with recurrent chest pain and shortness of breath and reaccumulation of the pleural fluid. 14 [place] pigtail catheter was placed under ultrasound guidance 11/11/2021 and mist 2 protocol has been initiated for a loculated effusion. Pigtail catheter drainage has become increasingly bloody and has not shown significant improvement on the x-ray. Recommendations: 1. Complex effusion: Suspicion for partially treated parapneumonic effusion. Continue 14 [place] catheter with mist 2 protocol. The fluid is now more bloody. It is unclear if instillation of intrapleural fibrinolytics may have exacerb ated hemothorax. We will continue drainage and perform a follow-up noncontrast CT scan in the morning. I did discuss with the patient that if this represents ongoing bleeding or if the catheter is unsuccessful in resolving the pleural fluid, he would likely require evaluation by thoracic surgery or interventional pulmonology for thoracoscopy and cauterization of bleeding sites as well as evacuation of the complex pleural fluid. He expressed understanding and is in agreement with the plan. 2. Chest pain: Secondary to pleural inflammation. Continue pain medications. Positioning the catheter will be checked on CT in the 3. Day #3 Unasyn vancomycin. Continue antibiotics for now pending cultures. 4. Thanks for the opportunity participating the care of this patient. Feel free to contact us with questions or concerns. Discussed with patient at bedside. Admission and Anticipated Discharge Date Admission Date: November 11, 2021 Subjective Patient seen and examined. EMR reviewed. The patient feels that his breathing continues to slowly improve. His pain control is improved. He is not having any fevers chills or night sweats. Review of Systems Review of Systems: All systems reviewed & are unremarkable except as noted in Subjective Physical Exam Constitutional: WD/WN, vitals as above Neck: trachea midline, no thyromegaly Respiratory: Auscultation: + diminished lung sounds Cardiovascular: RRR, no murmur, no edema Gastrointestinal (Abdomen): normal bowel sounds, soft, nontender, no hepatosplenomegaly Musculoskeletal: Extremities: extremities normal to inspection Skin: no rashes, warm and dry Lymphatic: no cervical lymphadenopathy Results & Data Results & Data ([facility]) Vital Signs (Past 12 Hours) Vital Signs Temp Pulse Pulse Resp BP Pulse Ox O2 Del Method 11/13/21 11:53 36.3 C L 70 18 145/82 H 96 Room Air 11/13/21 07:34 36.5 C 70 18 139/77 99 Room Air 11/13/21 04:27 36.7 C 69 16 134/84 94 Room Air chest tube output: 1 L Laboratory Results 11/11/21 08:39 Diagnostic Findings Imaging studies were independently reviewed. The tube has migrated a little bit but still appears to be within the thoracic cavity. There is persistent effusion at the left lung base. PG Care Time/CCT Total # of Minutes Spent Total Time Spent with Patient: Total time spent is greater than 50% in coordination of care (as documented) at patient's floor/unit and/or counseling patient: Coding Level of Care Code 32100 Subseq Hosp Care Lvl 3 Diagnoses Pleural effusion J90 Chest pain R07.9
--- NOTE | 2021-11-13 12:25 | Pharmacy Report ---
Pharmacy PK ABX Note - Date of Service November 13, 2021 - Assessment and Plan Assessment 46 year old M receiving vanc/unasyn for treatment of L pleural effusion. Pertinent microbiologic data includes: N/A. Day # 2 of antimicrobial therapy. Plan Vancomycin * Given 500 mg IV x 1 after dialysis yesterday. Per nursing report patient does not produce much urine. * No dialysis today- will not redose. * Random level ordered for: 11/14/21 Pharmacy will continue to follow and will adjust dose/frequency as necessary. Thank you. Pharmacy has transitioned to AUC monitoring for vancomycin. AUC/[place] is the preferred PK/PD target and is associated with decreased risk of nephrotoxicity compared to traditional trough targets.
[2021-11-13 12:45] LABS: BUN Creatinine Ratio 4.7 (10-20); Calcium 7.7 mg/dl (8.5-10.1); Creatinine Clr Calc Pharmacy 15.2 ml/min; Est GFR (African American) 9.7 ml/min; Est GFR (Non-African American) 8.4 ml/min; Potassium 5.4 mmol/L (3.5-5.1)
[2021-11-13] MEDS: PATIROMER CALCIUM SORBITEX 8.4 GM PACK PO SCH (13:05)
--- NOTE | 2021-11-13 15:40 | Hospitalist Progress Note ---
Date of Service November 13, 2021 Assessment & Plan (1) SOB (shortness of breath): (2) Pleural effusion: (3) Acute hyperkalemia: (4) ESRD (end stage renal disease) on dialysis: (5) DM I (diabetes mellitus, type I): (6) HFrEF (heart failure with reduced ejection fraction): (7) Multiple fractures of ribs of left side: (8) Fracture of lumbar spine: Plan This is a 46-year-old male who has a significant past medical history of type 1 diabetes mellitus, end-stage renal disease on home hemodialysis 5 days a week, chronic HFrEF, HTN, hyperparathyroidism, fatty liver disease, anemia of renal disease, GERD who presents to ED secondary to SOB. SOB Left Pleural Effusion - recurrent Recent Fall with Multiple L sided rib fractures Traumatic hemothorax Recent fx of lumbar spine, traumatic CXR showed slight increase in size in the small to moderate left pleural effusion/hemothorax and left basilar densities. S/P Pigtail chest tube insertion for the Left sided pleural effusion performed by Dr. Rodas Pleural fluid culture and gram stain negative More bloody drainage on the Pigtail catheter noted Pulmonology on board Repeat CXR showed small to moderate left pleural effusion and left basilar densities remain unchanged. The left lateral basal chest tube is unchanged in position.. Will check Hgb ESRD on HD On home dialysis, recently unable to complete full tx due to lower BP Last HD was yesterday Nephrology on board stable Hyperkalemia Received in ED Calc gluc, D5 and insulin Continue Veltassa daily K on admission 6, then increased to 6.4 Potassium today 5.4 Continue monitor BMP Hypotension Will hold amlodipine Consider to add midodrine if BP drops Continue monitor BP T1DM recent hba1c 8.3 on 10/22 On Novolin 70/30 at home Continue NPH and insulin sliding scale Continue monitor BS Anemia of renal disease Hgb stable at 10.2 Will check hbg since pigtail catheter with bloody drainage Chronic HFrEF hx of Vtach HTN Currently on asa, statin, metoprolol metoprolol recent reduced to daily due to lower BP Continue to hold Plavix for now. will discuss with Pulm about when to resume it last echo 10/25 EF 20 to 25%, left ventricular systolic function severely reduced, akinesis of the anterior/anterior apical septal aguilar otherwise moderate global hypokinesis DVT ppx: SCDS FULL CODE Admission and Anticipated Discharge Date Admission Date: November 11, 2021 Subjective Pt was seen and examined for follow up for left pleural effusion and low BP Lying in bed with no acute distress He said that his breathing is better He is having more drainage on the Pigtail catheter Denies any chest pain, palpitation, dizziness and SOB Review of Systems Review of Systems: All systems reviewed & are unremarkable except as noted in Subjective Physical Exam Physical Exam: General- No acute distress Head- atraumatic Eyes- PERRL, EOMI, ENT- oropharynx clear Neck- supple, no JVD Lungs- +diminished BS Heart- regular rhythm; no murmur Abdomen- normal bowel sounds, soft, nontender Extremities- no calf tenderness Neuro- alert, oriented x 3; PERRL, EOMI; no facial palsy; no dysarthria Skin- warm & dry Results & Data Results & Data ([facility]) Vital Signs (Past 12 Hours) Vital Signs Temp Pulse Pulse Pulse Resp BP Pulse Ox 11/13/21 15:31 75 11/13/21 15:00 36.5 C 74 18 105/56 L 97 11/13/21 06:35 71 11/13/21 08:00 11/13/21 11:53 36.3 C L 70 18 145/82 H 96 11/13/21 07:34 36.5 C 70 18 139/77 99 11/13/21 04:27 36.7 C 69 16 134/84 94 O2 Del Method 11/13/21 15:31 11/13/21 15:00 Room Air 11/13/21 06:35 11/13/21 08:00 Room Air 11/13/21 11:53 Room Air 11/13/21 07:34 Room Air 11/13/21 04:27 Room Air (1) Multiple fractures of ribs of left side Encounter type: initial encounter Fracture type: closed Qualified Code(s): S22.42XA - Multiple fractures of ribs, left side, initial encounter for closed fracture (2) Fracture of lumbar spine Encounter type: initial encounter Fracture morphology: other fracture Fracture type: closed Lumbar vertebra fracture level: L4 Qualified Code(s): S32.048A - Other fracture of fourth lumbar vertebra, initial encounter for closed fracture
[2021-11-13] MEDS ORDERED: ALBUT/IPRATROP 3MG/0.5MG NEB 3 ML VIAL NEB STA (16:00)
--- NOTE | 2021-11-13 16:29 | XRay Report ---
SINGLE VIEW CHEST CLINICAL HISTORY: Dyspnea. Chest tube. FINDINGS: An AP, portable, upright chest radiograph is compared to study performed earlier the same d ay 11/13/2021 and correlated with chest CT dated 10/31/2021. The heart is enlarged noting atheroscleroti c calcification of the thoracic aorta. The pulmonary vasculature is noncongested. A left chest tube i s unchanged in position. This appears to be just within the left chest wall/pleural cavity. There is a small residual left pleural effusion with left basilar consolidation. The right lung appears clear noting basilar atelectasis. There is trace left lateral pneumothorax. No right-sided pneumothorax is seen. Known left-sided rib fractures are not well-visualized. IMPRESSION: 1. A left-sided chest tube is unchanged in position. The tip is likely located just within the chest wall/pleural cavity. 2. Trace left pneumothorax. 3. There is a small residual left pleural effusion with left basilar consolidation. This appears mode stly decreased in size from today's earlier examination. 4. Cardiomegaly without radiographic evidence of congestive failure. ACT 112: Negative or not required by law. Electronically signed by: Albin De La Rosa M.D. 11/13/2021 4:28 PM
[2021-11-13 16:32] LABS: Hematocrit (blood only) 30.7 % (40.1-51.0); Hemoglobin 9.8 g/dl (14.0-18.0)
[2021-11-13] MEDS: ATORVASTATIN 40 MG TAB PO SCH (20:02)
[2021-11-13] MEDS: POLYETHYLENE (MIRALAX) 17 GM PACK PO PRN (21:29)
[2021-11-14] MEDS: MoRPHine SULFATE 2 MG/ML CARP IV PRN ×6 (02:12→20:59)
[2021-11-14] MEDS: ACETAMINOPHEN 325 MG TAB PO PRN ×2 (02:12→20:59)
[2021-11-14] MEDS: AMPICILLIN/SULBACTAM SOD 3,000 MG in 0.9 % SODIUM CHLORIDE 100 ML IV SCH ×2 (05:24→17:17)
[2021-11-14] MEDS: ALTEPLASE, RECOMBINANT 10 MG in SYRINGE 50 ML IPL SCH (06:12)
[2021-11-14] MEDS ORDERED: SODIUM CHLORIDE 0.9% 1000ML 1,000 ML IV PRN (07:00)
[2021-11-14] MEDS: DORNASE ALFA 5 ML in SYRINGE 25 ML IPL SCH (07:08)
[2021-11-14 07:34] LABS: Hematocrit (blood only) 28.3 % (40.1-51.0); Hemoglobin 9.1 g/dl (14.0-18.0); Mean Corpuscular Hemoglobin 30.8 pg (25.0-34.0); Mean Corpuscular Hgb Conc 32.2 g/dL (32.0-36.0); Mean Corpuscular Volume 95.9 fL (80.0-100.0); Mean Platelet Volume 9.6 fL (9.4-12.4); Platelet Count 142 K/uL (130-400); RDW Coefficient of Variation 17.3 % (11.5-14.5); RDW Standard Deviation 59.8 fL (36.4-46.3); Red Blood Count 2.95 M/uL (4.63-6.08); White Blood Count 8.09 K/ul (4.8-10.8)
[2021-11-14 07:58] LABS: Creatinine Clr Calc Pharmacy 13.2 ml/min; Est GFR (African American) 8.3 ml/min; Est GFR (Non-African American) 7.1 ml/min
--- NOTE | 2021-11-14 08:11 | XRay Report ---
XR chest 1V portable HISTORY: Chest tube ? MIST 2 protocol COMPARISON: Chest 11/14/2021. FINDINGS: There is again noted a chest tube within the left lateral basal pleural space. This is unch anged in position. No definite pneumothorax. Small left pleural effusion and left basilar densities p ersist. The right lung is clear. The heart remains mildly enlarged. IMPRESSION: No change in the small left pleural effusion and position of the left basilar chest tube. No definite pneumothorax identified at this time. ACT 112: Negative or not required by law. Electronically signed by: Eddie Cantor M.D. 11/14/2021 8:09 AM
--- NOTE | 2021-11-14 08:51 | CT Scan Report ---
CT chest diagnostic wo con CLINICAL HISTORY: follow up pleural effusion TECHNIQUE: Multidetector row helical CT of the chest was performed. Coronal and sagittal reformations were obtained. Automated dose lowering techniques and/or adjustment according to patient size were u tilized for this exam. CT DOSE: 540.62 mGy.cm Comparison: Comparison is made to CT chest 10/31/2021 FINDINGS: Lungs and pleura: Interval placement of a left chest tube in the left thoracic cavity. The tip is wit hin the chest wall. Interval development of a tiny pneumothorax. The effusion/pneumothorax is similar to minimally decreased from the prior exam. Heart and pericardium: There is cardiomegaly without evidence of pericardial effusion. Vessels: Moderate atherosclerotic changes in the aorta and coronary arteries. Mediastinum and alisha: Lymph nodes are seen measuring up to 11 mm in short axis. Chest wall and lower neck: Subcutaneous emphysema is seen in the left lateral chest. Abdomen: Cholelithiasis is seen without evidence of cholecystitis. Bones: Redemonstration of fractures of the posterior ninth through 12th ribs. IMPRESSION: 1. Interval placement of a left chest tube with development of a small left pneumothorax, the compon ent of pleural effusion/hemothorax is similar to minimally decreased from prior exam. There is small subcutaneous emphysema along the tract of the chest tube. 2. Mediastinal lymph nodes may be reactive. ACT 112: Negative or not required by law. Electronically signed by: Hema Matta M.D. 11/14/2021 8:49 AM
[2021-11-14 08:52] LABS: BUN Creatinine Ratio 5.5 (10-20); Calcium 7.8 mg/dl (8.5-10.1); Potassium 5.7 mmol/L (3.5-5.1)
--- NOTE | 2021-11-14 09:28 | Pulmonology Progress Note ---
Date of Service November 14, 2021 Assessment & Plan (1) Pleural effusion: (2) Chest pain: Plan Impression: 46-year-old male with end-stage renal disease on dialysis with recent history of rib fractures resulting in hemothorax and pigtail catheter placement. He returned to the hospital with recurrent chest pain and shortness of breath and reaccumulation of the pleural fluid. 14 [place] pigtail catheter was placed under ultrasound guidance 11/11/2021 and mist 2 protocol has been initiated for a loculated effusion. Pigtail catheter drainage has become increasingly bloody and has not shown significant improvement on the x-ray. Recommendations: 1. Complex effusion: Cultures negative thus far. Unlikely to be an empyema. Probably retained hemothorax. Pigtail catheter is partially In the pleural space. Subcu air present. We will leave the cath in for continued drainage today and consider removal tomorrow. Defer antibiotics to the primary team. 2. Chest pain: Secondary to pleural inflammation. Continue pain medications. 4. Thanks for the opportunity participating the care of this patient. Feel free to contact us with questions or concerns. Discussed with patient at bedside. Admission and Anticipated Discharge Date Admission Date: November 11, 2021 Subjective Patient seen and examined. He is having pain in his left chest wall at the site of the pigtail insertion. Minimal drainage overnight. Review of Systems Review of Systems: All systems reviewed & are unremarkable except as noted in HPI & below Physical Exam Constitutional: WD/WN, vitals as above Neck: trachea midline, no thyromegaly Respiratory: Auscultation: + diminished lung sounds Cardiovascular: RRR, no murmur, no edema Gastrointestinal (Abdomen): normal bowel sounds, soft, nontender, no hepatosplenomegaly Musculoskeletal: Extremities: extremities normal to inspection Skin: no rashes, warm and dry Lymphatic: no cervical lymphadenopathy Results & Data Results & Data ([facility]) Vital Signs (Past 12 Hours) Vital Signs Temp Pulse Pulse Resp BP Pulse Ox O2 Del Method 11/14/21 07:33 Room Air 11/14/21 07:19 36.6 C 82 20 96/52 L 97 Room Air 11/14/21 03:34 36.7 C 99 H 18 116/60 96 Room Air 11/14/21 00:00 98 H 11/13/21 23:15 36.6 C 99 H 18 139/85 91 Room Air PG Care Time/CCT Total # of Minutes Spent Total Time Spent with Patient: Total time spent is greater than 50% in coordination of care (as documented) at patient's floor/unit and/or counseling patient: Coding Level of Care Code 30633 Subseq Hosp Care Lvl 2 Diagnoses Pleural effusion J90 Chest pain R07.9
[2021-11-14] MEDS: INSULIN HUMAN NPH SC SCH ×2 (09:55→17:13)
[2021-11-14] MEDS: INSULIN ASPART PER UNIT SC SCH ×4 (09:55→20:58)
--- NOTE | 2021-11-14 13:45 | Hospitalist Progress Note ---
Date of Service November 14, 2021 Assessment & Plan (1) SOB (shortness of breath): (2) Pleural effusion: (3) Acute hyperkalemia: (4) ESRD (end stage renal disease) on dialysis: (5) DM I (diabetes mellitus, type I): (6) HFrEF (heart failure with reduced ejection fraction): (7) Multiple fractures of ribs of left side: (8) Fracture of lumbar spine: Plan This is a 46-year-old male who has a significant past medical history of type 1 diabetes mellitus, end-stage renal disease on home hemodialysis 5 days a week, chronic HFrEF, HTN, hyperparathyroidism, fatty liver disease, anemia of renal disease, GERD who presents to ED secondary to SOB. SOB Left Pleural Effusion - recurrent Recent Fall with Multiple L sided rib fractures Traumatic hemothorax Recent fx of lumbar spine, traumatic CXR showed slight increase in size in the small to moderate left pleural effusion/hemothorax and left basilar densities. S/P Pigtail chest tube insertion for the Left sided pleural effusion performed by Dr. Rodas Pleural fluid culture and gram stain negative More bloody drainage on the Pigtail catheter noted Pulmonology on board CT chest showed Interval placement of a left chest tube with development of a small left pneumothorax, the component of pleural effusion/hemothorax is similar to minimally decreased from prior exam. Repeat CXR showed no change in the small left pleural effusion and position of the left basilar chest tube. No definite pneumothorax identified at this time. Pulm recommended to continue the pigtail cath drainage today, plan to remove it tomorrow Will d/c Vanco since MRSA swab negative Continue Unasyn for now ESRD on HD On home dialysis, recently unable to complete full tx due to lower BP Currently is getting HD Nephrology on board stable Hyperkalemia Received in ED Calc gluc, D5 and insulin Continue Veltassa daily K on admission 6, then increased to 6.4 Potassium today 5.7 Continue a low salt diet Continue monitor BMP Hypotension Occurs mostly during HD Continue to hold amlodipine Consider to add midodrine if BP drops, will defer to nephro Continue monitor BP T1DM recent hba1c 8.3 on 10/22 On Novolin 70/30 at home Continue NPH and insulin sliding scale Continue monitor BS Anemia of renal disease Hgb 9.1 today Pigtail catheter continue to drain Continue monitor H/H Chronic HFrEF hx of Vtach HTN Currently on asa, statin, metoprolol metoprolol recent reduced to daily due to lower BP Continue to hold Plavix for now. will discuss with Pulm about when to resume it last echo 10/25 EF 20 to 25%, left ventricular systolic function severely reduced, akinesis of the anterior/anterior apical septal aguilar otherwise moderate global hypokinesis DVT ppx: SCDS FULL CODE Admission and Anticipated Discharge Date Admission Date: November 11, 2021 Subjective Pt was seen and examined for follow up for left pleural effusion and low BP Lying in bed with no acute distress getting HD BP usually drops during HD He said that he feels ok, but continues to complaint about the diet Denies any chest pain, palpitation, dizziness and SOB Review of Systems Review of Systems: All systems reviewed & are unremarkable except as noted in Subjective Physical Exam Physical Exam: General- No acute distress Head- atraumatic Eyes- PERRL, EOMI, ENT- oropharynx clear Neck- supple, no JVD Lungs- +diminished BS Heart- regular rhythm; no murmur Abdomen- normal bowel sounds, soft, nontender Extremities- no calf tenderness Neuro- alert, oriented x 3; PERRL, EOMI; no facial palsy; no dysarthria Skin- warm & dry Results & Data Results & Data ([facility]) Vital Signs (Past 12 Hours) Vital Signs Temp Pulse Pulse Resp BP BP Pulse Ox 11/14/21 12:40 96 H 88/56 L 11/14/21 12:28 98 H 89/61 L 11/14/21 13:00 100 H 87/53 L 11/14/21 12:20 98 H 67/52 L 11/14/21 11:00 99 H 72/35 L 11/14/21 12:00 98 H 90/46 L 11/14/21 11:40 99 H 78/43 L 11/14/21 11:20 98 H 107/62 11/14/21 11:13 88 51/29 L 11/14/21 10:40 99 H 85/44 L 11/14/21 10:20 99 H 87/30 L 11/14/21 10:00 90 140/92 11/14/21 09:40 89 104/85 11/14/21 09:30 102 H 99/46 L 11/14/21 09:25 36.5 C 100 H 11/14/21 07:33 11/14/21 07:19 36.6 C 82 20 96/52 L 97 11/14/21 03:34 36.7 C 99 H 18 116/60 96 O2 Del Method 11/14/21 12:40 11/14/21 12:28 11/14/21 13:00 11/14/21 12:20 11/14/21 11:00 11/14/21 12:00 11/14/21 11:40 11/14/21 11:20 11/14/21 11:13 11/14/21 10:40 11/14/21 10:20 11/14/21 10:00 11/14/21 09:40 11/14/21 09:30 11/14/21 09:25 11/14/21 07:33 Room Air 11/14/21 07:19 Room Air 11/14/21 03:34 Room Air (1) Multiple fractures of ribs of left side Encounter type: initial encounter Fracture type: closed Qualified Code(s): S22.42XA - Multiple fractures of ribs, left side, initial encounter for closed fracture (2) Fracture of lumbar spine Encounter type: initial encounter Fracture morphology: other fracture Fracture type: closed Lumbar vertebra fracture level: L4 Qualified Code(s): S32.048A - Other fracture of fourth lumbar vertebra, initial encounter for closed fracture
[2021-11-14] MEDS: METOPROLOL SUCC 50MG EXT REL TAB PO SCH (14:15)
[2021-11-14] MEDS: LIDOCAINE 5% 1 PATCH TD SCH (14:16)
[2021-11-14] MEDS: ASPIRIN 81 MG ECTAB PO SCH (14:16)
[2021-11-14] MEDS: PANTOprazole 40 MG TAB PO SCH (14:16)
[2021-11-14] MEDS: PATIROMER CALCIUM SORBITEX 8.4 GM PACK PO SCH (17:55)
[2021-11-14] MEDS: oxyCODONE HCL IR 5 MG TAB (IMMEDIATE RELEASE) PO PRN (19:19)
[2021-11-14] MEDS: ATORVASTATIN 40 MG TAB PO SCH (20:58)
--- NOTE | 2021-11-14 21:01 | Dialysis Progress Note ---
Date of Service November 14, 2021 Assessment & Plan (1) ESRD (end stage renal disease) on dialysis: Plan: hypotension tolerating minimal UF on dialysis DH today primarily for clearance -continue FR -eval for dialysis tomorrow versus 11/16 -ensure aggressive epo w/ HD (2) Hyperkalemia: Plan: will increase patiromer dose daily bmp Admission and Anticipated Discharge Date Admission Date: November 11, 2021 Subjective seen on HD at about 1430; ongiong rib pain; not tolerating UF today and getting lots of IVF on HD in order to tolerate; no edema, no n/v Review of Systems Review of Systems: All systems reviewed & are unremarkable except as noted in Subjective Physical Exam Constitutional: well developed and well nourished Eyes: EOM intact bilaterally ENMT: Ears: no external ear abnormality Nose: no external nose abnormality Mouth: + dry oral mucous membranes Neck: no nuchal rigidity Respiratory: normal respiratory effort Auscultation: + diminished lung sounds (pigtail L base) Cardiovascular: Rate/Rhythm: regular rate and regular rhythm Extremities: + edema (1-2+) and + AV fistula (+t/b) Gastrointestinal (Abdomen): Inspection/Auscultation: normal bowel sounds Percussion/Palpation: abdomen soft; abdomen nontender Musculoskeletal: Extremities: strength 5/5 throughout Skin: no rashes, warm and dry Neurologic: hoover, fluent speech, no tremor Psychiatric: Orientation: oriented x 3 Results & Data ([facility]) Vital Signs (Past 12 Hours) Vital Signs Temp Pulse Pulse Resp BP BP Pulse Ox 11/14/21 19:34 36.6 C 103 H 18 104/56 L 98 11/14/21 15:51 37.0 C 105 H 17 107/70 97 11/14/21 14:00 137/76 11/14/21 13:45 36.6 C 100 H 109/66 11/14/21 13:20 100 H 76/46 L 11/14/21 13:42 106 H 20 82/43 L 11/14/21 12:40 96 H 88/56 L 11/14/21 12:28 98 H 89/61 L 11/14/21 13:00 100 H 87/53 L 11/14/21 12:20 98 H 67/52 L 11/14/21 11:00 99 H 72/35 L 11/14/21 12:00 98 H 90/46 L 11/14/21 11:40 99 H 78/43 L 11/14/21 11:20 98 H 107/62 11/14/21 11:13 88 51/29 L 11/14/21 10:40 99 H 85/44 L 11/14/21 10:20 99 H 87/30 L 11/14/21 10:00 90 140/92 11/14/21 09:40 89 104/85 11/14/21 09:30 102 H 99/46 L 11/14/21 09:25 36.5 C 100 H O2 Del Method 11/14/21 19:34 Room Air 11/14/21 15:51 Room Air 11/14/21 14:00 11/14/21 13:45 11/14/21 13:20 11/14/21 13:42 11/14/21 12:40 11/14/21 12:28 11/14/21 13:00 11/14/21 12:20 11/14/21 11:00 11/14/21 12:00 11/14/21 11:40 11/14/21 11:20 11/14/21 11:13 11/14/21 10:40 11/14/21 10:20 11/14/21 10:00 11/14/21 09:40 11/14/21 09:30 11/14/21 09:25 Laboratory Results 11/14/21 06:56 11/14/21 06:56
[2021-11-14] MEDS: POLYETHYLENE (MIRALAX) 17 GM PACK PO PRN (21:03)
[2021-11-15] MEDS: ACETAMINOPHEN 325 MG TAB PO PRN ×2 (01:07→20:28)
[2021-11-15] MEDS: MoRPHine SULFATE 2 MG/ML CARP IV PRN ×5 (01:08→20:28)
[2021-11-15] MEDS: POLYETHYLENE (MIRALAX) 17 GM PACK PO PRN ×2 (05:32→08:19)
[2021-11-15] MEDS: AMPICILLIN/SULBACTAM SOD 3,000 MG in 0.9 % SODIUM CHLORIDE 100 ML IV SCH ×2 (05:34→17:34)
[2021-11-15] MEDS: INSULIN ASPART PER UNIT SC SCH ×4 (08:16→20:28)
[2021-11-15] MEDS: INSULIN HUMAN NPH SC SCH ×2 (08:17→17:31)
--- NOTE | 2021-11-15 08:27 | XRay Report ---
XR chest 1V portable CLINICAL HISTORY: Chest tube ? MIST 2 protocol. COMPARISON STUDY: 11/14/2021 TECHNIQUE: 1 view of the chest FINDINGS: Single frontal view of the chest demonstrates the heart to again be enlarged. Compared to previous st udy, left-sided chest tube is again seen at the left lung base with residual left pleural effusion ag ain noted. No definite pneumothorax is seen as demonstrated on interval CT. There is right basilar at electasis. The right hemithorax is clear. There is no right pleural effusion. There is no evidence for vascular congestion. There is no acute osseous pathology. IMPRESSION: 1. Left-sided chest tube is again seen with small left pleural effusion and left basilar atelectasis. 2. No pneumothorax is identified radiographically. ACT 112: Negative or not required by law. Electronically signed by: Jas Dao M.D. 11/15/2021 8:26 AM
[2021-11-15] MEDS: LIDOCAINE 5% 1 PATCH TD SCH (08:35)
[2021-11-15] MEDS: METOPROLOL SUCC 50MG EXT REL TAB PO SCH (08:35)
[2021-11-15] MEDS: PANTOprazole 40 MG TAB PO SCH (08:35)
[2021-11-15] MEDS: ASPIRIN 81 MG ECTAB PO SCH (08:35)
[2021-11-15] MEDS: PATIROMER CALCIUM SORBITEX 8.4 GM PACK PO SCH (10:47)
[2021-11-15 11:32] LABS: Hemoglobin 8.8 g/dl (14.0-18.0); Mean Corpuscular Hemoglobin 30.6 pg (25.0-34.0); Mean Corpuscular Hgb Conc 31.4 g/dL (32.0-36.0); Mean Corpuscular Volume 97.2 fL (80.0-100.0); Mean Platelet Volume 9.4 fL (9.4-12.4); Platelet Count 152 K/uL (130-400); RDW Coefficient of Variation 17.7 % (11.5-14.5); RDW Standard Deviation 62.9 fL (36.4-46.3); Red Blood Count 2.88 M/uL (4.63-6.08); White Blood Count 6.99 K/ul (4.8-10.8)
[2021-11-15 12:02] LABS: Creatinine Clr Calc Pharmacy 14.8 ml/min; Est GFR (African American) 9.5 ml/min; Est GFR (Non-African American) 8.2 ml/min
[2021-11-15 12:05] LABS: BUN Creatinine Ratio 4.5 (10-20); Calcium 8.2 mg/dl (8.5-10.1); Potassium 4.8 mmol/L (3.5-5.1)
[2021-11-15] MEDS ORDERED: MoRPHine SULFATE 4 MG/ML 1 ML CARP\\VIAL IV ONE (13:36)
--- NOTE | 2021-11-15 13:41 | Nephrology Progress Note ---
Date of Service November 15, 2021 Assessment & Plan (1) ESRD (end stage renal disease) on dialysis: Plan: hypotension tolerating minimal UF on dialysis DH yesterday just for clearance -continue FR -plan HD tomorrow as IP or at home -needs recirc studies of AVF - can do here or home -ensure aggressive epo w/ HD (2) Hyperkalemia: Plan: will increase patiromer dose > recommend d/c on this patiromer dose daily bmp Admission and Anticipated Discharge Date Admission Date: November 11, 2021 Subjective feeling better today; pain controlled, walking better; eating better; stable chronic cough; some uptic in UOP Review of Systems Review of Systems: All systems reviewed & are unremarkable except as noted in Subjective Physical Exam Constitutional: well developed and well nourished Eyes: EOM intact bilaterally ENMT: Ears: no external ear abnormality Nose: no external nose abnormality Mouth: + dry oral mucous membranes Neck: no nuchal rigidity Respiratory: normal respiratory effort Auscultation: + diminished lung sounds (pigtail L base) Cardiovascular: Rate/Rhythm: regular rate and regular rhythm Extremities: + edema (1-2+) and + AV fistula (+t/b) Gastrointestinal (Abdomen): Inspection/Auscultation: normal bowel sounds Percussion/Palpation: abdomen soft; abdomen nontender Musculoskeletal: Extremities: strength 5/5 throughout Skin: no rashes, warm and dry Psychiatric: Orientation: oriented x 3 Results & Data ([facility]) Vital Signs (Past 12 Hours) Vital Signs Temp Pulse Resp BP Pulse Ox O2 Del Method 11/15/21 12:28 36.6 C 82 18 142/83 H 961 H 11/15/21 07:35 36.4 C L 84 18 119/37 L 95 Room Air 11/15/21 07:37 Room Air 11/15/21 02:57 36.6 C 80 18 128/70 99 Room Air Laboratory Results 11/15/21 11:15 11/15/21 11:15
--- NOTE | 2021-11-15 14:09 | Pulmonology Progress Note ---
Date of Service November 15, 2021 Assessment & Plan (1) Pleural effusion: (2) Chest pain: Plan Impression: 46-year-old male with end-stage renal disease on dialysis with recent history of rib fractures resulting in hemothorax and pigtail catheter placement. He returned to the hospital with recurrent chest pain and shortness of breath and reaccumulation of the pleural fluid. 14 Romansh pigtail catheter was placed under ultrasound guidance 11/11/2021 and mist 2 protocol has been completed for the loculated effusion. Recommendations: 1. Complex effusion: Cultures negative thus far. Unlikely to be an empyema. Probably retained hemothorax. Pigtail catheter is partially In the pleural space. Subcu air present. CT chest reviewed with minimal pleural effusion noted. Pleural catheter removed today at bedside. Recommend repeating a CT chest in 6 to 8 weeks. Discussed with hospitalist. 2. Chest pain: Secondary to pleural inflammation. Continue pain medications. 4. Thanks for the opportunity participating the care of this patient. Feel free to contact us with questions or concerns. Admission and Anticipated Discharge Date Admission Date: November 11, 2021 Subjective Patient eager to go home. Minimal shortness of breath. No fever or chills. Review of Systems Review of Systems: All systems reviewed & are unremarkable except as noted in HPI & below Physical Exam Constitutional: WD/WN, vitals as above Neck: trachea midline, no thyromegaly Respiratory: Auscultation: + diminished lung sounds Cardiovascular: RRR, no murmur, no edema Gastrointestinal (Abdomen): normal bowel sounds, soft, nontender, no hepatosplenomegaly Musculoskeletal: Extremities: extremities normal to inspection Skin: no rashes, warm and dry Lymphatic: no cervical lymphadenopathy Results & Data Results & Data ([facility]) Vital Signs (Past 12 Hours) Vital Signs Temp Pulse Resp BP Pulse Ox O2 Del Method 11/15/21 12:28 36.6 C 82 18 142/83 H 961 H 11/15/21 07:35 36.4 C L 84 18 119/37 L 95 Room Air 11/15/21 07:37 Room Air 11/15/21 02:57 36.6 C 80 18 128/70 99 Room Air PG Care Time/CCT Total # of Minutes Spent Total Time Spent with Patient: Total time spent is greater than 50% in coordination of care (as documented) at patient's floor/unit and/or counseling patient: Coding Level of Care Code 85413 Subseq Hosp Care Lvl 2 Diagnoses Pleural effusion J90 Chest pain R07.9
[2021-11-15] MEDS: oxyCODONE HCL IR 5 MG TAB (IMMEDIATE RELEASE) PO PRN (14:13)
--- NOTE | 2021-11-15 14:24 | Procedure Note ---
Procedure Note Date of Service November 15, 2021 Note Patient was given 3 mg of IV morphine prior to the removal of the chest tube. The pigtail locking mechanism was undone. The dressing was taken down. The catheter was slowly removed upon exhalation. The patient did have some pain during removal of the pigtail catheter. The catheter was intact. Minimal bleeding was noted. 4 x 4 dressings were placed over top of the incision site with silk tape. Patient tolerated procedure. Coding CPT Codes Pulmonary/Thoracic - Pulmonary and Thoracic: 94224 Remove lung catheter ([id number]) [facility] [place] Procedure Codes (Charges) Pulmonary/Thoracic Procedure 1: Pulmonary and Thoracic: 45881 Remove lung catheter
[2021-11-15] MEDS: ATORVASTATIN 40 MG TAB PO SCH (20:29)
[2021-11-16] MEDS ORDERED: PATIROMER CALCIUM SORBITEX 8.4 GM PACK PO SCH
[2021-11-16] MEDS: MoRPHine SULFATE 2 MG/ML CARP IV PRN ×2 (01:22→05:45)
[2021-11-16] MEDS: AMPICILLIN/SULBACTAM SOD 3,000 MG in 0.9 % SODIUM CHLORIDE 100 ML IV SCH (05:45)
[2021-11-16] MEDS ORDERED: HEPARIN SOD (PORCINE) 1000 UNIT/ML IV ONE (07:27)
[2021-11-16] MEDS ORDERED: SODIUM CHLORIDE 0.9% 1000ML 1,000 ML IV PRN (07:27)
[2021-11-16] MEDS ORDERED: EPOETIN ALFA 20,000 UNITS/ML VIAL IV SCH (07:30)
[2021-11-16] MEDS: INSULIN HUMAN NPH SC SCH (07:52)
[2021-11-16] MEDS: ASPIRIN 81 MG ECTAB PO SCH (07:52)
[2021-11-16] MEDS: LIDOCAINE 5% 1 PATCH TD SCH (07:52)
[2021-11-16] MEDS: PANTOprazole 40 MG TAB PO SCH (07:53)
[2021-11-16] MEDS: INSULIN ASPART PER UNIT SC SCH ×2 (07:57→11:44)
--- NOTE | 2021-11-16 08:36 | Hospitalist Progress Note ---
Date of Service November 15, 2021 Assessment & Plan (1) SOB (shortness of breath): (2) Pleural effusion: (3) Acute hyperkalemia: (4) ESRD (end stage renal disease) on dialysis: (5) DM I (diabetes mellitus, type I): (6) HFrEF (heart failure with reduced ejection fraction): (7) Multiple fractures of ribs of left side: (8) Fracture of lumbar spine: Plan This is a 46-year-old male who has a significant past medical history of type 1 diabetes mellitus, end-stage renal disease on home hemodialysis 5 days a week, chronic HFrEF, HTN, hyperparathyroidism, fatty liver disease, anemia of renal disease, GERD who presents to ED secondary to SOB. SOB Left Pleural Effusion - recurrent Recent Fall with Multiple L sided rib fractures Traumatic hemothorax Recent fx of lumbar spine, traumatic CXR showed slight increase in size in the small to moderate left pleural effusion/hemothorax and left basilar densities. S/P Pigtail chest tube insertion for the Left sided pleural effusion performed by Dr. Rodas Pleural fluid culture and gram stain negative More bloody drainage on the Pigtail catheter noted Pulmonology on board CT chest showed Interval placement of a left chest tube with development of a small left pneumothorax, the component of pleural effusion/hemothorax is similar to minimally decreased from prior exam. Repeat CXR showed no change in the small left pleural effusion and position of the left basilar chest tube. No definite pneumothorax identified at this time. Pulm recommended to continue the pigtail cath drainage - removed today (11/15) d/c'ed Vanco since MRSA swab negative Continue Unasyn for now ESRD on HD On home dialysis, recently unable to complete full tx due to lower BP Nephrology following stable Hyperkalemia Received in ED Calc gluc, D5 and insulin Continue Veltassa daily (increased dose per nephrology on DC) K on admission 6, then increased to 6.4 Continue a low salt diet Continue monitor BMP Hypotension Occurs mostly during HD Continue to hold amlodipine Consider to add midodrine if BP drops, will defer to nephro Continue monitor BP T1DM recent hba1c 8.3 on 10/22 On Novolin 70/30 at home Continue NPH and insulin sliding scale Continue monitor BS Anemia of renal disease Hgb 9.1 Also 2/2 hemothorax Continue monitor H/H Chronic HFrEF hx of Vtach HTN Currently on asa, statin, metoprolol metoprolol recent reduced to daily due to lower BP Continue to hold Plavix for now. will discuss with Pulm about when to resume it last echo 10/25 EF 20 to 25%, left ventricular systolic function severely reduced, akinesis of the anterior/anterior apical septal aguilar otherwise modera te global hypokinesis DVT ppx: SCDS FULL CODE Admission and Anticipated Discharge Date Admission Date: November 11, 2021 Subjective Pt was seen and examined for follow up for left pleural effusion/ hemothorax and low BP Sitting up in bed with no acute distress Chest tube removed earlier today Denies any chest pain, palpitation, dizziness and shortness of breath at the bedside and updated Patient eager to go home Review of Systems Review of Systems: All systems reviewed & are unremarkable except as noted in Subjective Physical Exam Physical Exam: General- No acute distress Head- atraumatic Eyes- PERRL, EOMI, ENT- oropharynx clear Neck- supple, no JVD Lungs-chest tube removed, dressings applied, clean dry intact. Improved breath sounds Heart- regular rhythm; no murmur Abdomen- normal bowel sounds, soft, nontender Extremities- no calf tenderness Neuro- alert, oriented x 3; answering questions appropriately, moves extremities Skin- warm & dry Results & Data Results & Data ([facility]) Vital Signs (Past 12 Hours) Vital Signs Temp Pulse Pulse Resp BP Pulse Ox O2 Del Method 11/15/21 22:51 36.5 C 104 H 18 144/84 H 98 Room Air (1) Multiple fractures of ribs of left side Encounter type: initial encounter Fracture type: closed Qualified Code(s): S22.42XA - Multiple fractures of ribs, left side, initial encounter for closed fracture (2) Fracture of lumbar spine Encounter type: initial encounter Fracture morphology: other fracture Fracture type: closed Lumbar vertebra fracture level: L4 Qualified Code(s): S32.048A - Other fracture of fourth lumbar vertebra, initial encounter for closed fracture
--- NOTE | 2021-11-16 08:38 | Hospitalist Progress Note ---
Date of Service November 16, 2021 Assessment & Plan (1) SOB (shortness of breath): (2) Pleural effusion: (3) Acute hyperkalemia: (4) ESRD (end stage renal disease) on dialysis: (5) DM I (diabetes mellitus, type I): (6) HFrEF (heart failure with reduced ejection fraction): (7) Multiple fractures of ribs of left side: (8) Fracture of lumbar spine: Plan This is a 46-year-old male who has a significant past medical history of type 1 diabetes mellitus, end-stage renal disease on home hemodialysis 5 days a week, chronic HFrEF, HTN, hyperparathyroidism, fatty liver disease, anemia of renal disease, GERD who presents to ED secondary to SOB. SOB Left Pleural Effusion - recurrent Recent Fall with Multiple L sided rib fractures Traumatic hemothorax Recent fx of lumbar spine, traumatic CXR showed slight increase in size in the small to moderate left pleural effusion/hemothorax and left basilar densities. S/P Pigtail chest tube insertion for the Left sided pleural effusion performed by Dr. Rodas Pleural fluid culture and gram stain negative More bloody drainage on the Pigtail catheter noted Pulmonology medicine consulted CT chest showed Interval placement of a left chest tube with development of a small left pneumothorax, the component of pleural effusion/hemothorax is similar to minimally decreased from prior exam. Repeat CXR showed no change in the small left pleural effusion and position of the left basilar chest tube. No definite pneumothorax identified at this time. Pulm recommended to continue the pigtail cath drainage - removed today (11/15) d/c'ed Vanco since MRSA swab negative Continue Unasyn for now - plan to DC on PO Abx - Augmentin Follow-up CT chest in 6 to 8 weeks, per pulmonary recs -scan can be ordered by PCP recommend referral to pulmonary medicine to review ESRD on HD On home dialysis, recently unable to complete full tx due to lower BP Nephrology following stable Hyperkalemia Received in ED Calc gluc, D5 and insulin Continue Veltassa daily (increased dose per nephrology on DC) K on admission 6, then increased to 6.4 Continue a low salt diet Continue monitor BMP Hypotension Occurs mostly during HD Continue to hold amlodipine -stop on discharge as well Consider to add midodrine if BP drops, will defer to nephro Continue monitor BP T1DM recent hba1c 8.3 on 10/22 On Novolin 70/30 at home Continue NPH and insulin sliding scale Continue monitor BS Anemia of renal disease Hgb 9.1 Also 2/2 hemothorax Continue monitor H/H Chronic HFrEF hx of Vtach HTN Currently on asa, statin, metoprolol metoprolol recent reduced to daily due to lower BP Continue to hold Plavix for now. Resume on DC last echo 10/25 EF 20 to 25%, left ventricular systolic function severely reduced, akinesis of the anterior/anterior apical septal aguilar otherwise moderate global hypokinesis DVT ppx: SCDs FULL CODE Admission and Anticipated Discharge Date Admission Date: November 11, 2021 Subjective Pt was seen and examined for follow up for left pleural effusion/ hemothorax and low BP Sitting up in bed in no acute distress Chest tube removed yesterday Denies any chest pain, palpitation, dizziness and shortness of breath Patient eager to go home Review of Systems Review of Systems: All systems reviewed & are unremarkable except as noted in Subjective Physical Exam Physical Exam: General- No acute distress Head- atraumatic Eyes- PERRL, EOMI, ENT- oropharynx clear Neck- supple, no JVD Lungs-chest tube removed, dressings applied, clean dry intact. Improved breath sounds Heart- regular rhythm; no murmur Abdomen- normal bowel sounds, soft, nontender Extremities- no calf tenderness Neuro- alert, oriented x 3; answering questions appropriately, moves extremities Skin- warm & dry Results & Data Results & Data ([facility]) Vital Signs (Past 12 Hours) Vital Signs Temp Pulse Pulse Resp BP Pulse Ox O2 Del Method 11/16/21 07:01 36.5 C 107 H 20 116/74 98 Room Air 11/16/21 02:50 36.6 C 109 H 18 160/75 H 99 Room Air 11/16/21 00:00 102 H 11/15/21 22:51 36.5 C 104 H 18 144/84 H 98 Room Air Laboratory Results 11/16/21 11/16/21 11/16/21 Range/Units 08:46 08:46 06:59 WBC 7.34 (4.8-10.8) K/ul RBC 2.92 L (4.63-6.08) M/uL Hgb 8.9 L (14.0-18.0) g/dl Hct 28.9 L (40.1-51.0) % MCV 99.0 (80.0-100.0) fL MCH 30.5 (25.0-34.0) pg MCHC 30.8 L (32.0-36.0) g/dL RDW Std Deviation 64.0 H (36.4-46.3) fL RDW Coeff of Nessa 17.7 H (11.5-14.5) % Plt Count 177 (130-400) K/uL MPV 9.4 (9.4-12.4) fL Sodium 136 (136-145) mmol/L Potassium 5.5 H (3.5-5.1) mmol/L Chloride 99 (98-107) mmol/L Carbon Dioxide 26 (21-32) mmol/L Anion Gap 11 (3-11) BUN 39 H (6-23) mg/dl Creatinine 8.40 H* D (0.6-1.4) mg/dl Est Cr Clr Drug Dosing 12.6 ml/min Est GFR ( Amer) 7.8 ml/min Est GFR (Non-Af Amer) 6.8 ml/min BUN/Creatinine Ratio 4.6 L (10-20) Glucose 136 H (70-99(Fasting)) mg/dl POC Glucose 114 H (70-99) mg/dl Calcium 8.1 L (8.5-10.1) mg/dl Phosphorus 7.7 H (2.5-4.9) mg/dl Magnesium 2.1 (1.7-2.4) mg/dl 11/15/21 11/15/21 11/15/21 Range/Units 20:18 16:24 11:39 WBC (4.8-10.8) K/ul RBC (4.63-6.08) M/uL Hgb (14.0-18.0) g/dl Hct (40.1-51.0) % MCV (80.0-100.0) fL MCH (25.0-34.0) pg MCHC (32.0-36.0) g/dL RDW Std Deviation (36.4-46.3) fL RDW Coeff of Nessa (11.5-14.5) % Plt Count (130-400) K/uL MPV (9.4-12.4) fL Sodium (136-145) mmol/L Potassium (3.5-5.1) mmol/L Chloride (98-107) mmol/L Carbon Dioxide (21-32) mmol/L Anion Gap (3-11) BUN (6-23) mg/dl Creatinine (0.6-1.4) mg/dl Est Cr Clr Drug Dosing ml/min Est GFR ( Amer) ml/min Est GFR (Non-Af Amer) ml/min BUN/Creatinine Ratio (10-20) Glucose (70-99(Fasting)) mg/dl POC Glucose 84 126 H 96 (70-99) mg/dl Calcium (8.5-10.1) mg/dl Phosphorus (2.5-4.9) mg/dl Magnesium (1.7-2.4) mg/dl 11/15/21 11/15/21 Range/Units 11:15 11:15 WBC 6.99 (4.8-10.8) K/ul RBC 2.88 L (4.63-6.08) M/uL Hgb 8.8 L (14.0-18.0) g/dl Hct 28.0 L (40.1-51.0) % MCV 97.2 (80.0-100.0) fL MCH 30.6 (25.0-34.0) pg MCHC 31.4 L (32.0-36.0) g/dL RDW Std Deviation 62.9 H (36.4-46.3) fL RDW Coeff of Nessa 17.7 H (11.5-14.5) % Plt Count 152 (130-400) K/uL MPV 9.4 (9.4-12.4) fL Sodium 136 (136-145) mmol/L Potassium 4.8 (3.5-5.1) mmol/L Chloride 100 (98-107) mmol/L Carbon Dioxide 27 (21-32) mmol/L Anion Gap 9 (3-11) BUN 32 H (6-23) mg/dl Creatinine 7.17 H* D (0.6-1.4) mg/dl Est Cr Clr Drug Dosing 14.8 ml/min Est GFR ( Amer) 9.5 ml/min Est GFR (Non-Af Amer) 8.2 ml/min BUN/Creatinine Ratio 4.5 L (10-20) Glucose 96 (70-99(Fasting)) mg/dl POC Glucose (70-99) mg/dl Calcium 8.2 L (8.5-10.1) mg/dl Phosphorus (2.5-4.9) mg/dl Magnesium (1.7-2.4) mg/dl Medications Administered Current Inpatient Medications Acetaminophen (Acetaminophen 325 Mg Tab) 650 mg PO Q4H PRN PRN Reason: Pain or Fever Stop: 12/11/21 14:09 Last Admin: 11/15/21 20:28 Dose: 650 mg Amlodipine Besylate (Amlodipine Besylate 5 Mg Tab) 5 mg PO DAILY GHAZALA Stop: 12/12/21 08:59 Last Admin: 11/13/21 09:07 Dose: Not Given Aspirin (Aspirin 81 Mg Ectab) 81 mg PO DAILY [facility] Stop: 12/12/21 08:59 Last Admin: 11/16/21 07:52 Dose: 81 mg Atorvastatin Calcium (Atorvastatin 40 Mg Tab) 40 mg PO HS [facility] Stop: 12/11/21 20:59 Last Admin: 11/15/21 20:29 Dose: 40 mg Dextrose (Dextrose 50% 50 Ml Syringe) 25 - 50 ml IV UD PRN; Protocol PRN Reason: Hypoglycemia Protocol Stop: 12/11/21 14:09 Epoetin Tavo (Epoetin Tavo 20,000 Units/Ml Vial) 20,000 units IV 0730 [facility] Stop: 11/16/21 14:00 Glucagon (Glucagon For Inj 1 Mg Vial) 1 mg SQ UD PRN; Protocol PRN Reason: Hypoglycemia Protocol Stop: 12/11/21 14:09 Glucose (Glucose 40% Gel 15 Gm Tube) 15 - 30 gm PO UD PRN; Protocol PRN Reason: Hypoglycemia Protocol Stop: 12/11/21 14:09 Glucose (Glucose 10 Tab/Tube) 4 - 8 tab PO UD PRN; Protocol PRN Reason: Hypoglycemia Treatment Stop: 12/11/21 14:09 Ampicillin Sodium/Sulbactam Sodium 3,000 mg/ Sodium Chloride 108 mls @ 200 mls/hr IV Q12H GHAZALA; Protocol Stop: 11/18/21 17:59 Last Infusion: 11/16/21 06:25 Dose: Infused Sodium Chloride (Nss 1000ml) 1,000 mls @ 0 mls/hr IV .Q0M PRN PRN Reason: For Hemodialysis Use ONLY Stop: 11/16/21 13:26 Insulin Aspart (Insulin Aspart Per Unit) 0 units SC ACHS [facility] Stop: 12/11/21 16:29 Last Admin: 11/16/21 07:57 Dose: 6 units Insulin Human NPH (Insulin Human Nph) 0 - 10 units SC BIDM [facility]; Protocol Stop: 12/11/21 16:59 Last Admin: 11/16/21 07:52 Dose: Not Given Lidocaine (L[facility]ocaine 5% 1 Patch) [facility] [place] [place] Stop: 12/11/21 14:09 Last Admin: 11/16/21 07:52 Dose: Not Given Metoprolol Succinate (Metoprolol Succ 50mg Ext Rel Tab) 100 mg PO DAILY [facility] Stop: 12/12/21 08:59 Last Admin: 11/15/21 08:35 Dose: 100 mg Miscellaneous (Carbohydrates For Hypoglycemia ) 15 - 30 gm PO UD PRN PRN Reason: Hypoglycemia Protocol Stop: 12/11/21 14:09 Miscellaneous (Remove Lidoderm Patch) 1 each N/A DAILY@2100 [facility] Stop: 12/11/21 20:59 Last Admin: 11/15/21 20:28 Dose: 1 each Morphine Sulfate (Morphine Sulfate 2 Mg/Ml Carp) 2 mg IV Q3H PRN PRN Reason: Pain (1,2,3,4,5) & Pre PT Stop: 11/25/21 16:34 Last Admin: 11/16/21 05:45 Dose: 2 mg Oxycodone HCl (Oxycodone Hcl Ir 5 Mg Tab (Immediate Release)) 5 mg PO Q6 PRN PRN Reason: pain Stop: 11/25/21 14:09 Last Admin: 11/15/21 14:13 Dose: 5 mg Pantoprazole Sodium (Pantoprazole 40 Mg Tab) 40 mg PO QAM [facility] Stop: 12/12/21 08:59 Last Admin: 11/16/21 07:53 Dose: 40 mg Patiromer (Patiromer Calcium Sorbitex 8.4 Gm Pack) 16.5 gm PO DAILY@1100 [facility] Stop: 12/15/21 10:59 Last Admin: 11/15/21 10:47 Dose: 16.5 gm Polyethylene Glycol (Polyethylene (Miralax) 17 Gm Pack) 17 gm PO DAILY PRN PRN Reason: Constipation Stop: 12/11/21 14:09 Last Admin: 11/15/21 08:19 Dose: 17 gm (1) Multiple fractures of ribs of left side Encounter type: initial encounter Fracture type: closed Qualified Code(s): S22.42XA - Multiple fractures of ribs, left side, initial encounter for closed fracture (2) Fracture of lumbar spine Encounter type: initial encounter Fracture morphology: other fracture Fracture type: closed Lumbar vertebra fracture level: L4 Qualified Code(s): S32.048A - Other fracture of fourth lumbar vertebra, initial encounter for closed fracture
[2021-11-16] MEDS: METOPROLOL SUCC 50MG EXT REL TAB PO SCH (08:57)
[2021-11-16 09:23] LABS: Hematocrit (blood only) 28.9 % (40.1-51.0); Hemoglobin 8.9 g/dl (14.0-18.0); Mean Corpuscular Hemoglobin 30.5 pg (25.0-34.0); Mean Corpuscular Hgb Conc 30.8 g/dL (32.0-36.0); Mean Platelet Volume 9.4 fL (9.4-12.4); Platelet Count 177 K/uL (130-400); RDW Coefficient of Variation 17.7 % (11.5-14.5); Red Blood Count 2.92 M/uL (4.63-6.08); White Blood Count 7.34 K/ul (4.8-10.8)
[2021-11-16 09:56] LABS: BUN Creatinine Ratio 4.6 (10-20); Calcium 8.1 mg/dl (8.5-10.1); Creatinine Clr Calc Pharmacy 12.6 ml/min; Est GFR (African American) 7.8 ml/min; Est GFR (Non-African American) 6.8 ml/min; Magnesium 2.1 mg/dl (1.7-2.4); Phosphorus 7.7 mg/dl (2.5-4.9); Potassium 5.5 mmol/L (3.5-5.1)
--- NOTE | 2021-11-16 10:21 | Nephrology Progress Note ---
Date of Service November 16, 2021 Assessment & Plan (1) ESRD (end stage renal disease) on dialysis: Plan: hypotension tolerating minimal UF on dialysis. 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 axle and frame mechanic if issues getting/affording cost of this medication; no substitute meds unless he can get 2 wks supply of lokelma 10 gm on non HD days -do recirculation studies w/ tx at home >> home axle and frame mechanic will instruct pt -continue aggressive erythroipoietin or/and mircera dosing w/ HD -check K, hgb weekly with HD -hold amlodipine at discharge; continue metoprolol succinate 100 mg daily at d/c -keep dialysis clinic appt on 11/18 as previously scheduled (2) Hyperkalemia: Plan: will increase patiromer dose > recommend d/c on this patiromer dose daily bmp Admission and Anticipated Discharge Date Admission Date: November 11, 2021 Subjective no interval events. L post chest pain adequately controlled; no angina; ambulating w/ care despite some edema; no cough, no sob Review of Systems Review of Systems: All systems reviewed & are unremarkable except as noted in Subjective Physical Exam Constitutional: well developed and well nourished Eyes: EOM intact bilaterally ENMT: Ears: no external ear abnormality Nose: no external nose abnormality Mouth: + dry oral mucous membranes Neck: no nuchal rigidity Respiratory: normal respiratory effort Auscultation: + diminished lung sounds Cardiovascular: Rate/Rhythm: regular rate and regular rhythm Extremities: + edema (1-2+ pedal) and + AV fistula (+t/b) Gastrointestinal (Abdomen): Inspection/Auscultation: normal bowel sounds Percussion/Palpation: abdomen soft; abdomen nontender Musculoskeletal: Extremities: strength 5/5 throughout Skin: no rashes, warm and dry Neurologic: hoover, fluent speech, no tremor Psychiatric: Orientation: oriented x 3 Insight: good insight Results & Data ([facility]) Vital Signs (Past 12 Hours) Vital Signs Temp Pulse Pulse Resp BP Pulse Ox O2 Del Method 11/16/21 07:01 36.5 C 107 H 20 116/74 98 Room Air 11/16/21 02:50 36.6 C 109 H 18 160/75 H 99 Room Air 11/16/21 00:00 102 H 11/15/21 22:51 36.5 C 104 H 18 144/84 H 98 Room Air Laboratory Results 11/16/21 08:46 11/16/21 08:46 phos 7.7
[2021-11-16] MEDS: PATIROMER CALCIUM SORBITEX 8.4 GM PACK PO SCH (11:39)
[2021-11-16] MEDS ORDERED: ADVANCED PROBIOTIC 1250 MG CAPSULE PO SCH (13:00)
--- NOTE | 2021-11-16 13:09 | Discharge Summary ---
Date of Service November 16, 2021 Admission HPI Per Admitting Provider This is a 46-year-old male who has a significant past medical history of type 1 diabetes mellitus, end-stage renal disease on home hemodialysis 5 days a week, chronic HFrEF, HTN, hyperparathyroidism, fatty liver disease, anemia of renal disease, GERD who presents to ED secondary to SOB. Of significance patient recently hospitalized 10/21 to 10/29/2021 after sustaining a mechanical fall when trying to get out of shower. He hit his head and his left upper thorax. He subsequently sustained left rib fractures 9 through 12 posteriorly, 10 through 11 laterally and a left articular process fracture of L4 and L5. Secondary to rib fractures he did develop a hemothorax and large pleural effusion. He did require a Pleurx chest tube to be placed which drained 1600 mL of bloody fluid. It was felt this was likely secondary to hemothorax. His hemoglobin did drop to 8.4. He was seen and evaluated by pulmonology while hospitalized. He was also followed by nephrology secondary to dialysis needs. His hospital course was complicated after he sustained an episode of V. tach and syncope on 10/24 which was felt secondary to hyperkalemia and Cipro use. His Coreg was switched to metoprolol metoprolol dose was adjusted. Cardiology was also on board. He did have echocardiogram on 10/25 which revealed EF 20 to 25%, left ventricular systolic function severely reduced, akinesis of the anterior/anterior apical septal aguilar otherwise moderate global hypokinesis. Since being discharged home he has been in ER 2 separate times. Initially was 2/2 to syncope and the last time was 2/2 to cough/pain. He was started on levaquin for cough at brittany visit and oxycodone. He has been having lower blood pressure since being discharged. He also has been having trouble completed his home HD and pull off fluid because of lower blood pressure. He pulled 1.3L yesterday. Normal tx he would pull 3L. He has been doing dialysis 4-5 days a week. He saw Cardiology yesterday who told him to stop Levaquin and lasix. They also decreased his metoprolol to once daily. He presents today due to SOB past 2-3 days. Over past 2-3 days he has been feeling pressure on his Left side and getting worse. "I can hardly breathe." He also has a dry cough. He is unable to lie down and sleeps sitting up which is normal for him. He occasionally gets sweats but denies fever or chills. He continues to have pain from rib fractures; however they are way better than they were 3 weeks ago. Admission Exam Per Admitting Provider Constitutional: Chronically ill appearing, vitals as above, NAD, sitting up in bed, pleasant, conversing easily Head: Normocephalic, Atraumatic Eyes: PERRL, conjunctivae normal, anicteric sclerae ENMT: external ear and nose normal, oropharynx normal Neck: trachea midline, no thyromegaly normal visual inspection Respiratory: normal respiratory effort, lungs clear to auscultation, decreased breath sounds mid to lower left lung bases with basilar crackles otherwise no wheeze, rales, rhonchi. Normal insp/exp effort, no accessory muscle use Cardiovascular: RRR, no murmur, b/l +1 edema with b/l venous stasis changes Vessels: no JVD or carotid bruit Chest: normal inspection of chest Abdomen: normal bowel sounds, soft, nontender, Musculoskeletal: no cyanosis or clubbing, AROM x4 Skin: no rashes, warm and dry normal turgor Neurologic: PERRL, EOMI, accommodation nl, no face palsy, no dysarthria CN's II-XI intact bilaterally and moves all extremities Psychiatric: A+Ox3, euthymic affect Principal Diagnosis Pleural effusion/hemothorax, secondary to fall Hypokalemia, in the setting of end-stage renal disease Discharge Exam General- No acute distress Head- atraumatic Eyes- PERRL, EOMI, ENT- oropharynx clear Neck- supple, no JVD Lungs-chest tube removed, dressings applied, clean dry intact. Improved breath sounds Heart- regular rhythm; no murmur Abdomen- normal bowel sounds, soft, nontender Extremities- no calf tenderness Neuro- alert, oriented x 3; answering questions appropriately, moves extremities Skin- warm & dry Discharge Data Allergies Allergy/AdvReac Type Severity Reaction Status Date / Time benzonatate Allergy Unknown told not Verified 11/01/21 16:59 to take ibuprofen Allergy Unknown told not Verified 11/01/21 16:59 to take baclofen AdvReac Severe sedation/co Verified 11/01/21 16:59 nfusion oxycodone AdvReac Intermediate Confusion Verified 11/01/21 16:59 FRED Inhibitors AdvReac Unknown Unknown Verified 11/01/21 16:59 Consultations 11/11/21 10:41 ED Decision to Admit Stat 11/11/21 11:11 Consult Nephrology Routine 11/11/21 11:57 Consult Pulmonology Routine Ordered Studies 11/14/21 08:00 CT chest diagnostic wo con Routine FINDINGS: Lungs and pleura: Interval placement of a left chest tube in the left thoracic cavity. The tip is within the chest wall. Interval development of a tiny pneumothorax. The effusion/pneumothorax is similar to minimally decreased from the prior exam. Heart and pericardium: There is cardiomegaly without evidence of pericardial effusion. Vessels: Moderate atherosclerotic changes in the aorta and coronary arteries. Mediastinum and alisha: Lymph nodes are seen measuring up to 11 mm in short axis. Chest wall and lower neck: Subcutaneous emphysema is seen in the left lateral chest. Abdomen: Cholelithiasis is seen without evidence of cholecystitis. Bones: Redemonstration of fractures of the posterior ninth through 12th ribs. IMPRESSION: 1. Interval placement of a left chest tube with development of a small left pneumothorax, the component of pleural effusion/hemothorax is similar to minim ally decreased from prior exam. There is small subcutaneous emphysema along the tract of the chest tube. 2. Mediastinal lymph nodes may be reactive. Hospital Course (1) SOB (shortness of breath): (2) Pleural effusion: (3) Acute hyperkalemia: (4) ESRD (end stage renal disease) on dialysis: (5) DM I (diabetes mellitus, type I): (6) HFrEF (heart failure with reduced ejection fraction): (7) Multiple fractures of ribs of left side: (8) Fracture of lumbar spine: Plan This is a 46-year-old male who has a significant past medical history of type 1 diabetes mellitus, end-stage renal disease on home hemodialysis 5 days a week, chronic HFrEF, HTN, hyperparathyroidism, fatty liver disease, anemia of renal disease, GERD who presents to ED secondary to SOB. SOB Left Pleural Effusion - recurrent Recent Fall with Multiple L sided rib fractures Traumatic hemothorax Recent fx of lumbar spine, traumatic CXR showed slight increase in size in the small to moderate left pleural effusion/hemothorax and left basilar densities. S/P Pigtail chest tube insertion for the Left sided pleural effusion performed by Dr. Rodas Pleural fluid culture and gram stain negative More bloody drainage on the Pigtail catheter noted Pulmonology medicine consulted CT chest showed Interval placement of a left chest tube with development of a small left pneumothorax, the component of pleural effusion/hemothorax is similar to minimally decreased from prior exam. Repeat CXR showed no change in the small left pleural effusion and position of the left basilar chest tube. No definite pneumothorax identified at this time. Pulm recommended to continue the pigtail cath drainage - removed today (11/15) d/c'ed Vanco since MRSA swab negative Continue Unasyn for now - plan to DC on PO Abx - Augmentin Follow-up CT chest in 6 to 8 weeks, per pulmonary recs -scan can be ordered by PCP recommend referral to pulmonary medicine to review ESRD on HD On home dialysis, recently unable to complete full tx due to lower BP Nephrology following stable Hyperkalemia Received in ED Calc gluc, D5 and insulin Continue Veltassa daily (increased dose per nephrology on DC) K on admission 6, then increased to 6.4 Continue a low salt diet Continue monitor BMP Hypotension Occurs mostly during HD Continue to hold amlodipine -stop on discharge as well Consider to add midodrine if BP drops, will defer to nephro Continue monitor BP T1DM recent hba1c 8.3 on 10/22 On Novolin 70/30 at home Continue NPH and insulin sliding scale Continue monitor BS Anemia of renal disease Hgb 9.1 Also 2/2 hemothorax Continue monitor H/H Chronic HFrEF hx of Vtach HTN Currently on asa, statin, metoprolol metoprolol recent reduced to daily due to lower BP Continue to hold Plavix for now. Resume on DC last echo 10/25 EF 20 to 25%, left ventricular systolic function severely reduced, akinesis of the anterior/anterior apical septal aguilar otherwise moderate global hypokinesis Total Time Total Time Spent Total Time Spent (In Minutes): 40 Discharge Plan Discharge Items Patient Disposition: Home - Self-Care Reason For Visit: PLEURAL EFFUSION, HYPERKALEMIA Discharge Diagnosis: Pleural effusion/hemothorax, secondary to fall Hypokalemia, in the setting of end-stage renal disease Activity: Per Instructions section Non-emergency contact: Primary Care Provider and Supervisor [employer] Call non-emergency contact if: you have any medication questions and your symptoms worsen Follow-up/Referrals: Grayson Swan MD [Primary Care Provider] - Diet: Carb Consistent or DM2 and Dialysis Renal Fluids: 1500ml (6 cups) Addtl Attending Provider Instructions: Recommend to follow-up with your primary care doctor within 1 week. Recent dialysis at home today. Continue with dialysis 5 days weekly. You were started on a new medication, Patiromer 16.5 mg daily, to control high potassium level. If you have any issues getting/affording medication, contact home dialysis nurse. Check potassium level and hemoglobin weekly with dialysis. Finish antibiotic treatment with Augmentin. Recommend taking probiotics, while taking antibiotic to prevent any stomach upset or diarrhea. You will need CT chest in 6 to 8 weeks. Recommend to follow-up with pulmonary medicine. Stop amlodipine, and continue taking metoprolol succinate 100 mg daily. Pending Studies at Discharge: Yes Studies:: Final results of pleural fluid culture Stand-Alone Forms: [facility] [place], Smoking Cessation Medications and DC Order Prescriptions: New Veltassa 8.4 gram Powder In Packet 16.5 g PO DAILY Qty: 30 0RF amoxicillin-pot clavulanate 875-125 mg tablet 1 tab PO BID 7 Days Qty: 14 0RF Continued atorvastatin 40 mg Tablet 40 mg PO HS clopidogrel 75 mg Tablet 75 mg PO DAILY nitroglycerin [Nitrostat] 0.4 mg Tablet, Sublingual 0.4 mg Sublingual DIRECTED PRN (Reason: Chest Pain) omeprazole 20 mg Capsule,Delayed Release(Dr/Ec) 40 mg PO QAM aspirin 81 mg Tablet,Delayed Release (Dr/Ec) 81 mg PO DAILY hydralazine 100 mg tablet 100 mg PO BID PRN (Reason: ..) Epogen Inj 0 mg INJ DIRECTED Rx Instructions: PER PT "VARIES AND DEPENDS ON DIALYSIS". Novolin 70-30 FlexPen U-100 15 units SC TID oxycodone 5 mg Tablet 5 mg PO Q8H PRN (Reason: pain) Qty: 10 0RF Rx Instructions: please hold for drowsiness and lethargy metoprolol succinate 100 mg tablet extended release 24 hr 100 mg PO DAILY Discontinued amlodipine 5 mg tablet 5 mg PO DAILY Discharge Orders: Discharge Order (Routine); Ordered 11/16/21 Ordered By: Dennis Arteaga Admission Data Admit Date/Time: 11/11/21 11:11 Attending Provider: Dennis Arteaga Admit Provider: Donald Richardson Primary Care Provider: Grayson Swan Other Providers: Donald Richardson ; Silas Rodas ; Luis Deal ; Elisabet Schultz
== END 2021-11-16 14:11 | disposition home or self-care (01) | DRG 199 ==
LOC: ED 08:14 → SUATTDRO 11:11 → 1E 11:11 → 2S 11-12 18:51

== ENCOUNTER 2021-11-20 12:47 | Inpatient (IN) ==
--- NOTE | 2021-11-20 14:09 | XRay Report ---
XR chest 1V portable HISTORY: recent chest tube, shortness of breath COMPARISON: Chest 11/15/2021. FINDINGS: The left-sided chest tube has been removed. A small left pleural effusion and left basilar densities appeared of slightly improved in the interval. Suspect a tiny left apical pneumothorax. The heart remains enlarged. The right lung is clear. There are low lung volumes. IMPRESSION: 1. Interval removal of the left-sided chest tube. 2. Tiny left apical pneumothorax is noted. 3. Small left pleural effusion left basilar densities have slightly improved. ACT 112: Negative or not required by law. Electronically signed by: Eddie Cantor M.D. 11/20/2021 2:08 PM
--- NOTE | 2021-11-20 14:25 | Emergency Department Note ---
Impression & Plan Elevated troponin ADMIT ED Provider Note HPI: The patient is a 46-year-old male with history of end-stage renal disease, on home hemodialysis every other day, type 1 diabetes, coronary artery disease, hypertension, presents the emergency department chief complaint shortness of breath over the past 2 days. Patient did have a recent hospitalization in late September/early October that required chest tube placement after a fall with multiple rib fractures complicated by hemothorax. Patient states this chest tube was removed and then subsequently another was placed secondary to reaccumulation of fluid and the second chest tube was removed on 15 November. Patient presents the emergency department stating he has had some "gasping" over the past 2 days and he is felt a sensation of increased work of breathing. Patient also states he has some pain in the area of the left lateral chest where the chest tube is removed that radiates somewhat anteriorly and to the lower part of his anterior chest on the left side. Patient does tell me that he tolerated a full session of dialysis last night. On arrival here to the ED the patient is in no acute distress. He is saturating well on room air on arrival without increased work of breathing. ROS: -Pulmonary: Shortness of breath *10 point review systems was conducted and is otherwise negative unless stated above *Outpatient medications and allergy history reviewed PE: General: Alert, NAD HEENT: Normocephalic, atraumatic Eyes: Extraocular eye movement is intact, no scleral erythema Pulmonary: Clear to auscultation bilaterally, no wheezing Cardio: Regular rate and rhythm GI: Abdomen is soft, nontender : No suprapubic tenderness MSK: No evidence of trauma or malformation of the extremities, no edema Skin: No evidence of rash, bandage over placement/removal site of previous chest tube to left posterior chest wall without surrounding erythema Neuro: Alert, no focal deficits Psychiatric: Cooperative supervisor salvage: - An order was placed for continuous cardiac monitoring - Patient was noted to be in sinus rhythm with rate of 80 EKG: Rate: 78 Rhythm: Normal sinus rhythm Intervals: Within normal limits ST changes: No ST elevation Time: 1431 EKG #2: Rate: 101 Rhythm: Sinus tachycardia Intervals: Within normal limits ST changes: No ST elevation Time: 1536 Medical Decision Making: Patient presented to the emergency department chief complaint shortness of breath for the past 2 days. EKG does not show any acute ischemic changes, does show what appears to be some very mild ST depressions in V4 through V6 that appear similar to previous EKG. IV was established, lab work obtained, lab work does show evidence of an elevated troponin at approximately 800, patient was given morphine here in the ED with relief of his chest discomfort that is in the left lateral chest wall and relatively atypical nature. Repeat EKG was obtained following the results of the patient's troponin that does not show any acute change from previous. Given the patient's recent pulmonary history and chest tube placements, CT angiography of the chest was obtained that does not show any evidence of any new /worsening effusion, no evidence of any pulmonary emboli. Previous pneumothorax appears to be resolving. Patient's lab work is otherwise largely at baseline with his history of CKD and end-stage renal disease. Potassium is within normal limits. On my reevaluation the patient is sleeping. I awoke him and he states he is feeling more comfortable. I did discuss the case with the on-call hospitalist for [facility], Dr. Hu, who is in agreement to accept the patient. I did also discussed the case with on-call cardiology for [facility], Dr. Fried, who is in agreement at this time that the patient should be initiated on a heparin drip given his elevated troponin. This was ordered prior to admission. Patient is in agreement for admission and he was admitted in stable condition fo r further care. Critical care time: 80 minutes -Time spent at the bedside and management of patient with elevated troponin level, chest pain, requiring initiation of heparin drip, interpretation of diagnostic studies including lab work and EKG, discussion with other physicians including on-call cardiology, discussion with healthcare provider and arrangement of admission Diagnosis: 1. Elevated troponin 2. Shortness of breath 3. Nonspecific chest pain 4. End-stage renal disease, on dialysis Disposition: Admission Arsenio Veras DO Emergency Medicine Past Med/Surg History Medical History Acute left lumbar radiculopathy Anemia Bilateral carotid artery stenosis Monitored with Carotid Doppler q6 months. 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 Carotid artery stenosis Coronary artery disease Diabetes mellitus, insulin-dependent (IDDM or type I) DM I (diabetes mellitus, type I) Dyslipidemia ESRD (end stage renal disease) on dialysis GERD (gastroesophageal reflux disease) Gout Hemothorax, traumatic Hypertension Hypertensive urgency Labile hypertension Orthostatic hypotension Presence of artificial eye LEFT Ulcer of finger R third digit Weakness Surgical History History of discectomy LUMBAR History of eye surgery MULTIPLE EYE SURGERIES S/T COMPLICATIONS OF DIABETES INCLUDING DETACHED RETINA, DSEAK PROCEDURES, AND ENUCLEATION OF LEFT EYE Status post cardiac catheterization Status post coronary artery stent placement 2009, NO HX OF [facility]. 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 Required: No Beliefs That Will Affect Care: None marital status: Current Living Situation: Spouse current occupational status: disabled Feels Safe at Home: Yes Assistive Devices: Walker Allergies Allergies Allergy/AdvReac Type Severity Reaction Status Date / Time benzonatate Allergy Unknown told not Verified 11/01/21 16:59 to take ibuprofen Allergy Unknown told not Verified 11/01/21 16:59 to take baclofen AdvReac Severe sedation/co Verified 11/01/21 16:59 nfusion oxycodone AdvReac Intermediate Confusion Verified 11/01/21 16:59 FRED Inhibitors AdvReac Unknown Unknown Verified 11/01/21 16:59 Home Meds Home Medications Medication Instructions Recorded Confirmed atorvastatin 40 mg tablet 40 mg PO HS 02/13/18 11/20/21 clopidogrel 75 mg tablet 75 mg PO DAILY 02/13/18 11/20/21 nitroglycerin 0.4 mg sublingual 0.4 mg sublingual DIRECTED PRN 02/13/18 11/20/21 tablet (Nitrostat) Chest Pain omeprazole 20 mg capsule,delayed 40 mg PO QAM 02/13/18 11/20/21 release aspirin 81 mg tablet,delayed 81 mg PO DAILY 06/10/20 11/20/21 release hydralazine 100 mg tablet 100 mg PO BID PRN .. 10/14/20 11/20/21 Epogen Inj 0 mg INJ DIRECTED 08/23/21 11/20/21 Novolin 70-30 FlexPen U-100 15 units SC TID 10/21/21 11/20/21 metoprolol succinate 100 mg 100 mg PO DAILY 11/11/21 11/20/21 tablet,extended release 24 hr Previous Rx's Medication Instructions Recorded oxycodone 5 mg tablet 5 mg PO Q8H PRN pain #10 tabs 10/29/21 amoxicillin 875 mg-potassium 1 tab PO BID 7 days #14 tabs 11/16/21 clavulanate 125 mg tablet Results & Data (ED) Vital Signs Vital Signs - 24 hr 11/20/21 12:56 11/20/21 13:53 11/20/21 14:33 Temperature 36.8 C Temperature Source Temporal Artery Scan Pulse Rate 83 78 Pulse Rate [Radial] Pulse Rhythm Regular Pulse Rhythm [Radial] Pulse Strength [Radial] Respiratory Rate 20 17 Respiratory Effort / Characteristics Non-Labored Respiratory Depth Normal Respiratory Pattern Regular Blood Pressure 128/63 Blood Pressure [Right Arm] Blood Pressure Mean 84 Blood Pressure Mean [Right Arm] Blood Pressure Position Sitting Blood Pressure Position [Right Arm] Pulse Oximetry 100 100 95 Oxygen Delivery Method Room Air Room Air Room Air Sepsis Recent Fever Within 48 Hours No Sepsis New/Unexplained Change in Mental Status No Sepsis Action Taken by Nursing No Action Required 11/20/21 14:33 11/20/21 16:00 11/20/21 18:04 Temperature Temperature Source Pulse Rate Pulse Rate [Radial] 78 100 H 98 H Pulse Rhythm Pulse Rhythm [Radial] Regular Regular Pulse Strength [Radial] Normal Normal Respiratory Rate 17 20 17 Respiratory Effort / Characteristics Non-Labored Spontaneous Non-Labored Spontaneous Non-Labored Spontaneous Respiratory Depth Normal Normal Normal Respiratory Pattern Regular Regular Regular Blood Pressure Blood Pressure [Right Arm] 178/53 H 102/48 L 124/74 Blood Pressure Mean Blood Pressure Mean [Right Arm] 94 66 90 Blood Pressure Position Blood Pressure Position [Right Arm] Sitting Sitting Lying Pulse Oximetry 98 98 97 Oxygen Delivery Method Room Air Room Air Room Air Sepsis Recent Fever Within 48 Hours Sepsis New/Unexplained Change in Mental Status Sepsis Action Taken by Nursing Laboratory Data Result diagrams: 11/20/21 14:37 11/20/21 14:37 Lab Results 11/20/21 11/20/21 11/20/21 Range/Units 14:37 14:37 14:37 WBC 8.85 (4.8-10.8) K/ul RBC 2.91 L (4.63-6.08) M/uL Hgb 9.0 L (14.0-18.0) g/dl Hct 28.9 L (40.1-51.0) % MCV 99.3 (80.0-100.0) fL MCH 30.9 (25.0-34.0) pg MCHC 31.1 L (32.0-36.0) g/dL RDW Std Deviation 63.1 H (36.4-46.3) fL RDW Coeff of Nessa 17.9 H (11.5-14.5) % Plt Count 298 (130-400) K/uL MPV 9.2 L (9.4-12.4) fL Immature Gran % (Auto) 1.0 % Neut % (Auto) 60.2 % Lymph % (Auto) 18.6 % [place] % (Auto) 11.6 % Eos % (Auto) 7.7 % Baso % (Auto) 0.9 % Neut # (Auto) 5.32 (1.4-6.5) K/uL Lymph # (Auto) 1.65 (1.2-3.4) K/uL [place] # (Auto) 1.03 H (0.24-0.82) K/uL Eos # (Auto) 0.68 H (0-0.50) K/uL Baso # (Auto) 0.08 (0-0.2) K/uL Immature Gran # (Auto) 0.09 H (0.00-0.02) K/uL PT 12.0 (9.0-12.0) Seconds INR 1.1 (0.9-1.1) APTT 27.1 (21.0-31.0) Seconds PTT Ratio 1.0 VBG pH (7.36-7.41) VBG pCO2 (38-50) mmHg VBG pO2 mmHg VBG HCO3 mmol/L VBG O2 Saturation % VBG Base Excess mEq/L Sodium 133 L (136-145) mmol/L Potassium 4.8 (3.5-5.1) mmol/L Chloride 94 L (98-107) mmol/L Carbon Dioxide 30 (21-32) mmol/L Anion Gap 9 (3-11) BUN 37 H (6-23) mg/dl Creatinine 7.70 H* (0.6-1.4) mg/dl Est Cr Clr Drug Dosing Not Reportable Est GFR ( Amer) 8.7 ml/min Est GFR (Non-Af Amer) 7.5 ml/min BUN/Creatinine Ratio 4.8 L (10-20) Glucose 152 H (70-99(Fasting)) mg/dl Calcium 8.8 (8.5-10.1) mg/dl Total Bilirubin 0.5 (0.2-1.0) mg/dl AST 10 L (13-39) U/L ALT 8 (7-52) U/L Alkaline Phosphatase 85 (34-104) U/L Troponin I High Sens 796.3 H* D (0-20) pg/ml Total Protein 7.2 (6.0-8.3) gm/dl Albumin 3.6 (3.4-5.0) gm/dl Globulin 3.6 (2.5-4.0) gm/dl Albumin/Globulin Ratio 1.0 (0.9-2) SARS-CoV-2, RNA, NAAT (NEGATIVE) 11/20/21 11/20/21 Range/Units 14:37 16:32 WBC (4.8-10.8) K/ul RBC (4.63-6.08) M/uL Hgb (14.0-18.0) g/dl Hct (40.1-51.0) % MCV (80.0-100.0) fL MCH (25.0-34.0) pg MCHC (32.0-36.0) g/dL RDW Std Deviation (36.4-46.3) fL RDW Coeff of Nessa (11.5-14.5) % Plt Count (130-400) K/uL MPV (9.4-12.4) fL Immature Gran % (Auto) % Neut % (Auto) % Lymph % (Auto) % [place] % (Auto) % Eos % (Auto) % Baso % (Auto) % Neut # (Auto) (1.4-6.5) K/uL Lymph # (Auto) (1.2-3.4) K/uL [place] # (Auto) (0.24-0.82) K/uL Eos # (Auto) (0-0.50) K/uL Baso # (Auto) (0-0.2) K/uL Immature Gran # (Auto) (0.00-0.02) K/uL PT (9.0-12.0) Seconds INR (0.9-1.1) APTT (21.0-31.0) Seconds PTT Ratio VBG pH 7.40 (7.36-7.41) VBG pCO2 51 H (38-50) mmHg VBG pO2 41 mmHg VBG HCO3 32 mmol/L VBG O2 Saturation 66.5 % VBG Base Excess 5.5 mEq/L Sodium (136-145) mmol/L Potassium (3.5-5.1) mmol/L Chloride (98-107) mmol/L Carbon Dioxide (21-32) mmol/L Anion Gap (3-11) BUN (6-23) mg/dl Creatinine (0.6-1.4) mg/dl Est Cr Clr Drug Dosing Est GFR ( Amer) ml/min Est GFR (Non-Af Amer) ml/min BUN/Creatinine Ratio (10-20) Glucose (70-99(Fasting)) mg/dl Calcium (8.5-10.1) mg/dl Total Bilirubin (0.2-1.0) mg/dl AST (13-39) U/L ALT (7-52) U/L Alkaline Phosphatase (34-104) U/L Troponin I High Sens (0-20) pg/ml Total Protein (6.0-8.3) gm/dl Albumin (3.4-5.0) gm/dl Globulin (2.5-4.0) gm/dl Albumin/Globulin Ratio (0.9-2) SARS-CoV-2, RNA, NAAT NEGATIVE (NEGATIVE) Administered Medications Discontinued Medications Aspirin (Aspirin Chew 324 Mg) 324 mg PO NOW STA Stop: 11/20/21 18:30 Last Admin: 11/20/21 18:35 Dose: 324 mg Documented By: VARGAS Ioversol (Optiray 320 125ml) 119 ml IV ONCE ONE Stop: 11/20/21 16:29 Last Admin: 11/20/21 16:28 Dose: 119 ml Documented By: ARTI Morphine Sulfate (Morphine Sulfate 4 Mg/Ml 1 Ml Carp\\Vial) 4 mg IV NOW STA Stop: 11/20/21 14:42 Last Admin: 11/20/21 14:46 Dose: 4 mg Documented By: VARGAS Morphine Sulfate (Morphine Sulfate 4 Mg/Ml 1 Ml Carp\\Vial) Confirm Administered Dose 4 mg .ROUTE .STK-MED ONE Stop: 11/20/21 17:06 Last Admin: 11/20/21 17:06 Dose: 4 mg Documented By: VARGAS Ondansetron HCl (Ondansetron Inj 2 Mg/Ml 2 Ml Vial) 4 mg IV NOW STA Stop: 11/20/21 14:42 Last Admin: 11/20/21 14:47 Dose: 4 mg Documented By: VARGAS Imaging Data Radiologist's Impression: Chest X-Ray 11/20/21 13:25 XR chest 1V portable HISTORY: recent chest tube, shortness of breath COMPARISON: Chest 11/15/2021. FINDINGS: The left-sided chest tube has been removed. A small left pleural effusion and left basilar densities appeared of slightly improved in the interval. Suspect a tiny left apical pneumothorax. The heart remains enlarged. The right lung is clear. There are low lung volumes. IMPRESSION: 1. Interval removal of the left-sided chest tube. 2. Tiny left apical pneumothorax is noted. 3. Small left pleural effusion left basilar densities have slightly improved. ACT 112: Negative or not required by law. Electronically signed by: Eddie Cantor M.D. 11/20/2021 2:08 PM Chest CTA 11/20/21 14:23 CT ANGIOGRAPHY OF THE CHEST, PULMONARY EMBOLUS PROTOCOL CLINICAL HISTORY: Chest pain. Shortness of breath. Recent injury with left-sided rib fractures. COMPARISON STUDY: Chest CT November 14, 2021. Chest radiograph performed earlier today. TECHNIQUE: Following IV administration of 119 mL of Optiray, helical axial imag es of the chest were obtained utilizing the pulmonary embolus protocol. Maximal intensity projections and sagittal and coronal reformats were viewed on an independent 3D workstation. IV contrast was administered without complication. Automated exposure control was utilized for the study. A dose lowering technique was utilized adhering to the principles of ALARA. CT DOSE: 585.84 mGycm FINDINGS: No pulmonary emboli are identified. Cardiomegaly is noted. There is coronary artery calcification. No pericardial effusion is noted. A trace left pneumothorax has decreased in size since chest CT of November 14, 2021. Left chest wall gas has resolved. There is fluid within the left chest wall from recent chest tube which has been removed. A small left pleural effusion with mild pleural thickening remains unchanged. Left lung airspace opacity favors atelectasis. No consolidation to suggest pneumonia. Multiple healing left-sided rib fractures are again noted. No acute thoracic spine fracture is present. Gallstones are noted within visualized portions of the gallbladder. IMPRESSION: 1. No pulmonary emboli identified. 2. No change in a small left pleural effusion/small hemothorax since chest CT of November 14, 2021. Trace left pneumothorax, decreased in size since prior exam. 3. Redemonstration of multiple healing left-sided rib fractures. ACT 112: Negative or not required by law. Electronically signed by: Fabio Dominguez M.D. 11/20/2021 6:14 PM Discharge Plan Visit Data Chief Complaint: Shortness of Breath/Dyspnea Stated Complaint: SOB ED Provider: Arsenio Veras Discharge Problem: Elevated troponin Forms Stand Alone Forms: My [facility] [place] [employer] Prescriptions Prescriptions: No Action atorvastatin 40 mg Tablet 40 mg PO HS clopidogrel 75 mg Tablet 75 mg PO DAILY nitroglycerin [Nitrostat] 0.4 mg Tablet, Sublingual 0.4 mg Sublingual DIRECTED PRN (Reason: Chest Pain) omeprazole 20 mg Capsule,Delayed Release(Dr/Ec) 40 mg PO QAM aspirin 81 mg Tablet,Delayed Release (Dr/Ec) 81 mg PO DAILY hydralazine 100 mg tablet 100 mg PO BID PRN (Reason: ..) Epogen Inj 0 mg INJ DIRECTED Rx Instructions: PER PT "VARIES AND DEPENDS ON DIALYSIS". Novolin 70-30 FlexPen U-100 15 units SC TID oxycodone 5 mg Tablet 5 mg PO Q8H PRN (Reason: pain) Qty: 10 0RF Rx Instructions: please hold for drowsiness and lethargy metoprolol succinate 100 mg tablet extended release 24 hr 100 mg PO DAILY amoxicillin-pot clavulanate 875-125 mg tablet 1 tab PO BID 7 Days Qty: 14 0RF Referrals Referrals: Grayson Swan MD [Primary Care Provider] -
[2021-11-20] MEDS ORDERED: MoRPHine SULFATE 4 MG/ML 1 ML CARP\\VIAL IV STA ×2 (14:41→20:17)
[2021-11-20] MEDS ORDERED: ONDANSETRON INJ 2 MG/ML 2 ML VIAL IV STA (14:41)
[2021-11-20 14:49] LABS: Basophils # (auto) 0.08 K/uL (0-0.2); Basophils % (auto) 0.9 %; Eosinophils # (auto) 0.68 K/uL (0-0.50); Eosinophils % (auto) 7.7 %; Hematocrit (blood only) 28.9 % (40.1-51.0); Immature Granulocytes # (auto) 0.09 K/uL (0.00-0.02); Lymphocytes # (auto) 1.65 K/uL (1.2-3.4); Lymphocytes % (auto) 18.6 %; Mean Corpuscular Hemoglobin 30.9 pg (25.0-34.0); Mean Corpuscular Hgb Conc 31.1 g/dL (32.0-36.0); Mean Corpuscular Volume 99.3 fL (80.0-100.0); Mean Platelet Volume 9.2 fL (9.4-12.4); Monocytes # (auto) 1.03 K/uL (0.24-0.82); Monocytes % (auto) 11.6 %; Neutrophils # (auto) 5.32 K/uL (1.4-6.5); Neutrophils % (auto) 60.2 %; Platelet Count 298 K/uL (130-400); RDW Coefficient of Variation 17.9 % (11.5-14.5); RDW Standard Deviation 63.1 fL (36.4-46.3); Red Blood Count 2.91 M/uL (4.63-6.08); White Blood Count 8.85 K/ul (4.8-10.8)
[2021-11-20 14:51] LABS: Base Excess VBG 5.5 mEq/L; HCO3 VBG 32 mmol/L; Oxygen Saturation VBG 66.5 %; PCO2 VBG 51 mmHg (38-50); PO2 VBG 41 mmHg
[2021-11-20 15:07] LABS: INR 1.1 (0.9-1.1); Partial Thromboplastin Time 27.1 Seconds (21.0-31.0)
[2021-11-20 15:29] LABS: Alanine Aminotransferase 8 U/L (7-52); Albumin Level 3.6 gm/dl (3.4-5.0); Alkaline Phosphatase 85 U/L (34-104); Anion Gap 9 (3-11); Aspartate Aminotransferase 10 U/L (13-39); BUN Creatinine Ratio 4.8 (10-20); Bilirubin,Total 0.5 mg/dl (0.2-1.0); Blood Urea Nitrogen 37 mg/dl (6-23); Calcium 8.8 mg/dl (8.5-10.1); Carbon Dioxide 30 mmol/L (21-32); Chloride 94 mmol/L (98-107); Est GFR (African American) 8.7 ml/min; Est GFR (Non-African American) 7.5 ml/min; Globulin 3.6 gm/dl (2.5-4.0); Glucose 152 mg/dl (70-99(Fasting)); Potassium 4.8 mmol/L (3.5-5.1); Sodium 133 mmol/L (136-145); Total Protein 7.2 gm/dl (6.0-8.3); Troponin I High Sensitivity 796.3 pg/ml (0-20)
[2021-11-20] MEDS ORDERED: OPTIRAY 320 125ml IV ONE (16:28)
[2021-11-20] MEDS ORDERED: MoRPHine SULFATE 4 MG/ML 1 ML CARP\\VIAL ONE (17:05)
--- NOTE | 2021-11-20 18:16 | CT Scan Report ---
CT ANGIOGRAPHY OF THE CHEST, PULMONARY EMBOLUS PROTOCOL CLINICAL HISTORY: Chest pain. Shortness of breath. Recent injury with left-sided rib fractures. COMPARISON STUDY: Chest CT November 14, 2021. Chest radiograph performed earlier today. TECHNIQUE: Following IV administration of 119 mL of Optiray, helical axial images of the chest were o btained utilizing the pulmonary embolus protocol. Maximal intensity projections and sagittal and cor onal reformats were viewed on an independent 3D workstation. IV contrast was administered without co mplication. Automated exposure control was utilized for the study. A dose lowering technique was ut ilized adhering to the principles of ALARA. CT DOSE: 585.84 mGycm FINDINGS: No pulmonary emboli are identified. Cardiomegaly is noted. There is coronary artery calcif ication. No pericardial effusion is noted. A trace left pneumothorax has decreased in size since ches t CT of November 14, 2021. Left chest wall gas has resolved. There is fluid within the left chest wall fr om recent chest tube which has been removed. A small left pleural effusion with mild pleural thickeni ng remains unchanged. Left lung airspace opacity favors atelectasis. No consolidation to suggest pneu monia. Multiple healing left-sided rib fractures are again noted. No acute thoracic spine fracture is present. Gallstones are noted within visualized portions of the gallbladder. IMPRESSION: 1. No pulmonary emboli identified. 2. No change in a small left pleural effusion/small hemothorax since chest CT of November 14, 2021. Trace left pneumothorax, decreased in size since prior exam. 3. Redemonstration of multiple healing left-sided rib fractures. ACT 112: Negative or not required by law. Electronically signed by: Fabio Dominguez M.D. 11/20/2021 6:14 PM
[2021-11-20] MEDS ORDERED: ASPIRIN CHEW 324 MG PO STA (18:29)
[2021-11-20] MEDS ORDERED: Heparin IV Adult Wt-Based Standard *NO* Bolus Protocol IV ONE (19:14)
--- NOTE | 2021-11-20 19:32 | History & Physical Report ---
Date of Service November 20, 2021 Assessment & Plan (1) NSTEMI (non-ST elevation myocardial infarction): Plan: History of CAD status post stent 8 years ago and was on aspirin and Plavix Has not been taking Plavix for the last 14 days Presented with left-sided chest pain and troponins elevated to around 800 without any significant EKG changes Discussed with the business services tech and started on intravenous heparin and aspirin was continued Serial troponins, echocardiogram and EKG Cardiology consult (2) Chest pain: Plan: Left-sided chest pain-off and on even at rest CTA did not show any pulmonary embolism (3) SOB (shortness of breath): Plan: No shortness of breath at rest Minimal effusion bilaterally Saturating on room air (4) Pleural effusion: Plan: Small left pleural effusion Small pneumothorax (5) ESRD (end stage renal disease) on dialysis: Plan: Has been on home hemodialysis 5 days a week Has had dialysis yesterday Received intravenous contrast for CTA Discussed with counter dish carrier and will have dialysis in the usual schedule time Nephrology consulted (6) DM I (diabetes mellitus, type I): Plan: We will continue current medications SSI (7) HFrEF (heart failure with reduced ejection fraction): Plan: No signs of fluid overload (8) Hypertension: Plan: Blood pressure is stable (9) Dyslipidemia: Plan: Continue statin DVT prophylaxis On heparin drip CODE STATUS Full History of Present Illness Chief Complaint: Left-sided chest pain for the last 3 or 4 days associated with shortness of breath Primary Care Provider: Grayson Swan MD Is a 46-year-old male with significant past medical history of diabetes on insulin, and his renal disease on home hemodialysis 5 days a week, chronic heart failure, hypertension ,hyperparathyroidism, fatty liver disease, anemia of chronic renal disease and also recent history of hemothorax and pleural effusion required chest tube drainage apparently has been complaining of chest pain in the left side for the last 2 or 3 days associated with increasing shortness of breath.. Denies any fever and or chills. Denies any palpitation and does not have any increasing swelling of the legs. He does not have any cough or hemop tysis and does not feel heaviness in the chest on any particular side. In the ER he was hemodynamically stable, CTA did not show any pulmonary embolism. EKG was in sinus rhythm with ST-T wave changes but no change compared with prior but the troponin was elevated to around 800 which was around 68 during his recent admission in the hospital. The case was discussed with on- call business services tech and he was a started with intravenous heparin and got his aspirin. Apparently his Plavix was on hold during the chest tube procedure and he has been taking Plavix for the last 14 days. Allergies Allergy/AdvReac Type Severity Reaction Status Date / Time benzonatate Allergy Unknown told not Verified 11/01/21 16:59 to take ibuprofen Allergy Unknown told not Verified 11/01/21 16:59 to take baclofen AdvReac Severe sedation/co Verified 11/01/21 16:59 nfusion oxycodone AdvReac Intermediate Confusion Verified 11/01/21 16:59 FRED Inhibitors AdvReac Unknown Unknown Verified 11/01/21 16:59 Home Medications Medication Instructions Recorded Confirmed Type atorvastatin 40 mg tablet 40 mg PO HS 02/13/18 11/20/21 History clopidogrel 75 mg tablet 75 mg PO DAILY 02/13/18 11/20/21 History nitroglycerin 0.4 mg sublingual 0.4 mg sublingual DIRECTED PRN 02/13/18 11/20/21 History tablet (Nitrostat) Chest Pain omeprazole 20 mg capsule,delayed 40 mg PO QAM 02/13/18 11/20/21 History release aspirin 81 mg tablet,delayed 81 mg PO DAILY 06/10/20 11/20/21 History release hydralazine 100 mg tablet 100 mg PO BID PRN .. 10/14/20 11/20/21 History Epogen Inj 0 mg INJ DIRECTED 08/23/21 11/20/21 History Novolin 70-30 FlexPen U-100 15 units SC TID 10/21/21 11/20/21 History oxycodone 5 mg tablet 5 mg PO Q8H PRN pain #10 tabs 10/29/21 11/20/21 Rx metoprolol succinate 100 mg 100 mg PO DAILY 11/11/21 11/20/21 History tablet,extended release 24 hr amoxicillin 875 mg-potassium 1 tab PO BID 7 days #14 tabs 11/16/21 11/20/21 Rx clavulanate 125 mg tablet Past Med/Surg History Medical History Acute left lumbar radiculopathy Anemia Bilateral carotid artery stenosis Monitored with Carotid Doppler q6 months. 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 Carotid artery stenosis Coronary artery disease Diabetes mellitus, insulin-dependent (IDDM or type I) DM I (diabetes mellitus, type I) Dyslipidemia ESRD (end stage renal disease) on dialysis GERD (gastroesophageal reflux disease) Gout Hemothorax, traumatic Hypertension Hypertensive urgency Labile hypertension Orthostatic hypotension Presence of artificial eye LEFT Ulcer of finger R third digit Weakness Surgical History History of discectomy LUMBAR History of eye surgery MULTIPLE EYE SURGERIES S/T COMPLICATIONS OF DIABETES INCLUDING DETACHED RETINA, DSEAK PROCEDURES, AND ENUCLEATION OF LEFT EYE Status post cardiac catheterization Status post coronary artery stent placement 2009, NO HX OF GA. [facility]. 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 Required: No Beliefs That Will Affect Care: None marital status: Current Living Situation: Spouse current occupational status: disabled Feels Safe at Home: Yes Assistive Devices: Walker Review of Systems Review of Systems: All systems reviewed and are unremarkable except as noted below Physical Exam Physical Exam: Sitting on the bed without any acute distress Constitutional: well developed, well nourished and + obese; not ill appearing Eyes: PERRL, conjunctivae normal, anicteric sclerae ENMT: external ear and nose normal, oropharynx normal Neck: trachea midline, no thyromegaly Respiratory: no respiratory distress Auscultation: + diminished lung sounds (Left base) and + crackles ([place]) Cardiovascular: Rate/Rhythm: regular rate and regular rhythm; not tachycardic Heart Sounds: normal S1 and normal S2; no murmur Extremities: + edema (Trace edema bilaterally with chronic skin changes bilaterally) Gastrointestinal (Abdomen): Inspection/Auscultation: normal bowel sounds; abdomen not distended Percussion/Palpation: abdomen soft; abdomen nontender Musculoskeletal: No acute arthritis in any joint. Has left forearm AV fistula Neurologic: Alert, awake and oriented x3. No focal sensory or no motor deficit appreciated Lymphatic: no cervical or axillary lymphadenopathy Results & Data Results & Data ([facility]) Vital Signs (Past 12 Hours) Vital Signs Temp Pulse Pulse Resp BP BP Pulse Ox 11/20/21 18:04 98 H 17 124/74 97 11/20/21 16:00 100 H 20 102/48 L 98 11/20/21 14:33 78 17 178/53 H 98 11/20/21 14:33 78 17 95 11/20/21 13:53 100 11/20/21 12:56 36.8 C 83 20 128/63 100 O2 Del Method 11/20/21 18:04 Room Air 11/20/21 16:00 Room Air 11/20/21 14:33 Room Air 11/20/21 14:33 Room Air 11/20/21 13:53 Room Air 11/20/21 12:56 Room Air Laboratory Results Short CBC 11/20/21 Range/Units 14:37 WBC 8.85 (4.8-10.8) K/ul Hgb 9.0 L (14.0-18.0) g/dl Hct 28.9 L (40.1-51.0) % Plt Count 298 (130-400) K/uL BMP 11/20/21 14:37 Sodium 133 L Potassium 4.8 Chloride 94 L Carbon Dioxide 30 BUN 37 H Creatinine 7.70 H* Glucose 152 H Calcium 8.8 Liver Function 11/20/21 Range/Units 14:37 Total Bilirubin 0.5 (0.2-1.0) mg/dl AST 10 L (13-39) U/L ALT 8 (7-52) U/L Alkaline Phosphatase 85 (34-104) U/L Albumin 3.6 (3.4-5.0) gm/dl Medications Administered Current Inpatient Medications Heparin Sodium/Dextrose (Heparin Sodium/Dextrose) 25,000 units in 500 mls @ 0.02 mls/hr IV .Q24H [facility]; Protocol Stop: 12/20/21 19:29
[2021-11-20] MEDS: HEPARIN SODIUM/DEXTROSE 25,000 UNITS/500 ML BAG IV SCH (20:29)
[2021-11-20] MEDS ORDERED: ONDANSETRON INJ 2 MG/ML 2 ML VIAL IV PRN (21:08)
[2021-11-20] MEDS ORDERED: GLUCOSE 10 TAB/TUBE PO PRN (21:08)
[2021-11-20] MEDS ORDERED: GLUCAGON FOR INJ 1 MG VIAL SQ PRN (21:08)
[2021-11-20] MEDS ORDERED: DEXTROSE 50% 50 ML SYRINGE IV PRN (21:08)
[2021-11-20] MEDS ORDERED: CARBOHYDRATES FOR HYPOGLYCEMIA PO PRN (21:08)
[2021-11-20] MEDS ORDERED: GLUCOSE 40% GEL 15 GM TUBE PO PRN (21:08)
[2021-11-20] MEDS ORDERED: POLYETHYLENE (MIRALAX) 17 GM PACK PO PRN (21:08)
[2021-11-20] MEDS: INSULIN ASPART PER UNIT SC SCH (21:49)
[2021-11-20] MEDS: INSULIN HUMAN NPH SC SCH (21:51)
[2021-11-20] MEDS: AMOXICILLIN/CLAVULANATE 500 MG TAB PO SCH (21:53)
[2021-11-20] MEDS: ATORVASTATIN 40 MG TAB PO SCH (21:54)
[2021-11-21] MEDS: oxyCODONE HCL IR 5 MG TAB (IMMEDIATE RELEASE) PO PRN ×3 (00:11→18:25)
[2021-11-21] MEDS ORDERED: MoRPHine SULFATE 4 MG/ML 1 ML CARP\\VIAL IV STA (01:39)
[2021-11-21 03:54] LABS: Basophils # (auto) 0.07 K/uL (0-0.2); Basophils % (auto) 1.1 %; Eosinophils % (auto) 13.1 %; Hematocrit (blood only) 26.1 % (40.1-51.0); Immature Granulocytes # (auto) 0.04 K/uL (0.00-0.02); Immature Granulocytes % (auto) 0.7 %; Lymphocytes # (auto) 1.46 K/uL (1.2-3.4); Lymphocytes % (auto) 23.9 %; Mean Corpuscular Hemoglobin 30.8 pg (25.0-34.0); Mean Corpuscular Hgb Conc 30.7 g/dL (32.0-36.0); Mean Corpuscular Volume 100.4 fL (80.0-100.0); Mean Platelet Volume 9.3 fL (9.4-12.4); Monocytes # (auto) 0.73 K/uL (0.24-0.82); Monocytes % (auto) 11.9 %; Neutrophils # (auto) 3.02 K/uL (1.4-6.5); Neutrophils % (auto) 49.3 %; Platelet Count 258 K/uL (130-400); RDW Coefficient of Variation 18.2 % (11.5-14.5); RDW Standard Deviation 64.7 fL (36.4-46.3); White Blood Count 6.12 K/ul (4.8-10.8)
[2021-11-21 04:30] LABS: Partial Thromboplastin Ratio > 5.1
[2021-11-21 04:43] LABS: Albumin Level 3.1 gm/dl (3.4-5.0); BUN Creatinine Ratio 4.8 (10-20); Bilirubin,Total 0.4 mg/dl (0.2-1.0); Calcium 7.7 mg/dl (8.5-10.1); Chol HDL Ratio 3.3 (0-5); Creatinine Clr Calc Pharmacy 13.3 ml/min; Est GFR (African American) 8.4 ml/min; Est GFR (Non-African American) 7.2 ml/min; Potassium 4.9 mmol/L (3.5-5.1); Total Protein 6.1 gm/dl (6.0-8.3)
[2021-11-21 04:46] LABS: Partial Thromboplastin Time > 139.0 Seconds (21.0-31.0)
[2021-11-21] MEDS: ACETAMINOPHEN 325 MG TAB PO PRN ×3 (06:13→16:32)
[2021-11-21 06:41] LABS: Estimated Average Glucose 148 mg/dl; Hemoglobin A1C 6.8 % (4.5-5.6)
[2021-11-21 06:48] LABS: Partial Thromboplastin Ratio 1.1; Partial Thromboplastin Time 31.6 Seconds (21.0-31.0)
[2021-11-21] MEDS ORDERED: HEPARIN IV BOLUS 3,000 UNITS in SYRINGE 0 ML IV ONE (07:03)
[2021-11-21] MEDS: METOPROLOL SUCC 50MG EXT REL TAB PO SCH (08:17)
[2021-11-21] MEDS: PANTOprazole 40 MG TAB PO SCH (08:17)
[2021-11-21] MEDS: ASPIRIN 81 MG ECTAB PO SCH (08:17)
[2021-11-21] MEDS: INSULIN ASPART PER UNIT SC SCH ×4 (08:20→21:26)
[2021-11-21] MEDS: INSULIN HUMAN NPH SC SCH ×2 (08:20→21:26)
--- NOTE | 2021-11-21 08:38 | Hospitalist Progress Note ---
Date of Service November 21, 2021 Assessment & Plan (1) NSTEMI (non-ST elevation myocardial infarction): Plan: History of CAD status post stent 8 years ago and was on aspirin and Plavix Has not been taking Plavix for the last 14 days Presented with left-sided chest pain and troponins elevated to around 800 without any significant EKG changes Discussed with the program services planner and started on intravenous heparin and aspirin was continued Serial troponins, echocardiogram and EKG Cardiology consult (2) Chest pain: Plan: Left-sided chest pain-off and on even at rest CTA did not show any pulmonary embolism (3) SOB (shortness of breath): Plan: No shortness of breath at rest Minimal effusion bilaterally Saturating on room air (4) Pleural effusion: Plan: Small left pleural effusion Small pneumothorax (5) ESRD (end stage renal disease) on dialysis: Plan: Has been on home hemodialysis 5 days a week Has had dialysis yesterday Received intravenous contrast for CTA Discussed with carbon capture power plant manager and will have dialysis in the usual schedule time Nephrology consulted (6) DM I (diabetes mellitus, type I): Plan: We will continue current medications SSI (7) HFrEF (heart failure with reduced ejection fraction): Plan: No signs of fluid overload (8) Hypertension: Plan: Blood pressure is stable (9) Dyslipidemia: Plan: Continue statin DVT prophylaxis On heparin drip CODE STATUS Full Admission and Anticipated Discharge Date Admission Date: November 20, 2021 Subjective Patient seen in follow-up of chest pain, on home dialysis, recent history of hemothorax Results & Data Results & Data ([facility]) Vital Signs (Past 12 Hours) Vital Signs Temp Pulse Pulse Resp BP BP Pulse Ox 11/21/21 08:10 36.6 C 95 H 20 139/77 96 11/21/21 03:58 36.4 C L 97 H 18 133/60 98 11/20/21 22:20 97 H 11/20/21 23:15 11/20/21 23:15 36.5 C 98 H 18 94/60 L 100 11/20/21 22:07 97 H 21 132/78 98 11/20/21 21:57 96 H 17 133/80 11/20/21 21:57 11/20/21 21:33 98 H 19 115/83 97 Pulse Ox O2 Del Method O2 Del Method 11/21/21 08:10 Room Air 11/21/21 03:58 Room Air 11/20/21 22:20 11/20/21 23:15 Room Air 11/20/21 23:15 Room Air 11/20/21 22:07 Room Air 11/20/21 21:57 11/20/21 21:57 95 Room Air 11/20/21 21:33 Room Air Laboratory Results 11/21/21 11/21/21 11/21/21 Range/Units 07:05 06:00 06:00 WBC (4.8-10.8) K/ul RBC (4.63-6.08) M/uL Hgb (14.0-18.0) g/dl Hct (40.1-51.0) % MCV (80.0-100.0) fL MCH (25.0-34.0) pg MCHC (32.0-36.0) g/dL RDW Std Deviation (36.4-46.3) fL RDW Coeff of Nessa (11.5-14.5) % Plt Count (130-400) K/uL MPV (9.4-12.4) fL Immature Gran % (Auto) % Neut % (Auto) % Lymph % (Auto) % [place] % (Auto) % Eos % (Auto) % Baso % (Auto) % Neut # (Auto) (1.4-6.5) K/uL Lymph # (Auto) (1.2-3.4) K/uL [place] # (Auto) (0.24-0.82) K/uL Eos # (Auto) (0-0.50) K/uL Baso # (Auto) (0-0.2) K/uL Immature Gran # (Auto) (0.00-0.02) K/uL PT (9.0-12.0) Seconds INR (0.9-1.1) APTT 31.6 H (21.0-31.0) Seconds PTT Ratio 1.1 VBG pH (7.36-7.41) VBG pCO2 (38-50) mmHg VBG pO2 mmHg VBG HCO3 mmol/L VBG O2 Saturation % VBG Base Excess mEq/L Sodium (136-145) mmol/L Potassium (3.5-5.1) mmol/L Chloride (98-107) mmol/L Carbon Dioxide (21-32) mmol/L Anion Gap (3-11) BUN (6-23) mg/dl Creatinine (0.6-1.4) mg/dl Est Cr Clr Drug Dosing Est GFR ( Amer) ml/min Est GFR (Non-Af Amer) ml/min BUN/Creatinine Ratio (10-20) Glucose 112 H (70-99(Fasting)) mg/dl POC Glucose 122 H (70-99) mg/dl Estimat Average Glucose mg/dl Hemoglobin A1c (4.5-5.6) % Calcium (8.5-10.1) mg/dl Magnesium (1.7-2.4) mg/dl Total Bilirubin (0.2-1.0) mg/dl AST (13-39) U/L ALT (7-52) U/L Alkaline Phosphatase (34-104) U/L Troponin I High Sens (0-20) pg/ml Total Protein (6.0-8.3) gm/dl Albumin (3.4-5.0) gm/dl Globulin (2.5-4.0) gm/dl Albumin/Globulin Ratio (0.9-2) Triglycerides (0-150) mg/dl Cholesterol (0-200) mg/dl LDL Cholesterol, Calc mg/dl VLDL Cholesterol, Calc (0-30) mg/dl HDL Cholesterol mg/dl Cholesterol/HDL Ratio (0-5) Nasal Screen MRSA (PCR) (Negative) SARS-CoV-2, RNA, NAAT (NEGATIVE) 11/21/21 11/21/21 11/21/21 Range/Units 05:01 05:00 03:45 WBC (4.8-10.8) K/ul RBC (4.63-6.08) M/uL Hgb (14.0-18.0) g/dl Hct (40.1-51.0) % MCV (80.0-100.0) fL MCH (25.0-34.0) pg MCHC (32.0-36.0) g/dL RDW Std Deviation (36.4-46.3) fL RDW Coeff of Nessa (11.5-14.5) % Plt Count (130-400) K/uL MPV (9.4-12.4) fL Immature Gran % (Auto) % Neut % (Auto) % Lymph % (Auto) % [place] % (Auto) % Eos % (Auto) % Baso % (Auto) % Neut # (Auto) (1.4-6.5) K/uL Lymph # (Auto) (1.2-3.4) K/uL [place] # (Auto) (0.24-0.82) K/uL Eos # (Auto) (0-0.50) K/uL Baso # (Auto) (0-0.2) K/uL Immature Gran # (Auto) (0.00-0.02) K/uL PT (9.0-12.0) Seconds INR (0.9-1.1) APTT > 139.0 H* (21.0-31.0) Seconds PTT Ratio > 5.1 VBG pH (7.36-7.41) VBG pCO2 (38-50) mmHg VBG pO2 mmHg VBG HCO3 mmol/L VBG O2 Saturation % VBG Base Excess mEq/L Sodium (136-145) mmol/L Potassium (3.5-5.1) mmol/L Chloride (98-107) mmol/L Carbon Dioxide (21-32) mmol/L Anion Gap (3-11) BUN (6-23) mg/dl Creatinine (0.6-1.4) mg/dl Est Cr Clr Drug Dosing Est GFR ( Amer) ml/min Est GFR (Non-Af Amer) ml/min BUN/Creatinine Ratio (10-20) Glucose (70-99(Fasting)) mg/dl POC Glucose 141 H 127 H (70-99) mg/dl Estimat Average Glucose mg/dl Hemoglobin A1c (4.5-5.6) % Calcium (8.5-10.1) mg/dl Magnesium (1.7-2.4) mg/dl Total Bilirubin (0.2-1.0) mg/dl AST (13-39) U/L ALT (7-52) U/L Alkaline Phosphatase (34-104) U/L Troponin I High Sens (0-20) pg/ml Total Protein (6.0-8.3) gm/dl Albumin (3.4-5.0) gm/dl Globulin (2.5-4.0) gm/dl Albumin/Globulin Ratio (0.9-2) Triglycerides (0-150) mg/dl Cholesterol (0-200) mg/dl LDL Cholesterol, Calc mg/dl VLDL Cholesterol, Calc (0-30) mg/dl HDL Cholesterol mg/dl Cholesterol/HDL Ratio (0-5) Nasal Screen MRSA (PCR) (Negative) SARS-CoV-2, RNA, NAAT (NEGATIVE) 11/21/21 11/21/21 11/21/21 Range/Units 03:45 03:45 03:45 WBC 6.12 (4.8-10.8) K/ul RBC 2.60 L (4.63-6.08) M/uL Hgb 8.0 L (14.0-18.0) g/dl Hct 26.1 L (40.1-51.0) % MCV 100.4 H (80.0-100.0) fL MCH 30.8 (25.0-34.0) pg MCHC 30.7 L (32.0-36.0) g/dL RDW Std Deviation 64.7 H (36.4-46.3) fL RDW Coeff of Nessa 18.2 H (11.5-14.5) % Plt Count 258 (130-400) K/uL MPV 9.3 L (9.4-12.4) fL Immature Gran % (Auto) 0.7 % Neut % (Auto) 49.3 % Lymph % (Auto) 23.9 % [place] % (Auto) 11.9 % Eos % (Auto) 13.1 % Baso % (Auto) 1.1 % Neut # (Auto) 3.02 (1.4-6.5) K/uL Lymph # (Auto) 1.46 (1.2-3.4) K/uL [place] # (Auto) 0.73 (0.24-0.82) K/uL Eos # (Auto) 0.80 H (0-0.50) K/uL Baso # (Auto) 0.07 (0-0.2) K/uL Immature Gran # (Auto) 0.04 H (0.00-0.02) K/uL PT (9.0-12.0) Seconds INR (0.9-1.1) APTT (21.0-31.0) Seconds PTT Ratio VBG pH (7.36-7.41) VBG pCO2 (38-50) mmHg VBG pO2 mmHg VBG HCO3 mmol/L VBG O2 Saturation % VBG Base Excess mEq/L Sodium 127 L (136-145) mmol/L Potassium 4.9 (3.5-5.1) mmol/L Chloride 87 L (98-107) mmol/L Carbon Dioxide 28 (21-32) mmol/L Anion Gap 12 H (3-11) BUN 38 H (6-23) mg/dl Creatinine 7.96 H* (0.6-1.4) mg/dl Est Cr Clr Drug Dosing 13.3 Est GFR ( Amer) 8.4 ml/min Est GFR (Non-Af Amer) 7.2 ml/min BUN/Creatinine Ratio 4.8 L (10-20) Glucose 378 H* (70-99(Fasting)) mg/dl POC Glucose (70-99) mg/dl Estimat Average Glucose 148 mg/dl Hemoglobin A1c 6.8 H (4.5-5.6) % Calcium 7.7 L (8.5-10.1) mg/dl Magnesium 2.0 (1.7-2.4) mg/dl Total Bilirubin 0.4 (0.2-1.0) mg/dl AST 10 L (13-39) U/L ALT 7 (7-52) U/L Alkaline Phosphatase 73 (34-104) U/L Troponin I High Sens (0-20) pg/ml Total Protein 6.1 (6.0-8.3) gm/dl Albumin 3.1 L (3.4-5.0) gm/dl Globulin 3.0 (2.5-4.0) gm/dl Albumin/Globulin Ratio 1.0 (0.9-2) Triglycerides 53 (0-150) mg/dl Cholesterol 88 (0-200) mg/dl LDL Cholesterol, Calc 50 mg/dl VLDL Cholesterol, Calc 11 (0-30) mg/dl HDL Cholesterol 27 mg/dl Cholesterol/HDL Ratio 3.3 (0-5) Nasal Screen MRSA (PCR) (Negative) SARS-CoV-2, RNA, NAAT (NEGATIVE) 11/21/21 11/21/21 11/20/21 Range/Units 03:45 02:00 21:37 WBC (4.8-10.8) K/ul RBC (4.63-6.08) M/uL Hgb (14.0-18.0) g/dl Hct (40.1-51.0) % MCV (80.0-100.0) fL MCH (25.0-34.0) pg MCHC (32.0-36.0) g/dL RDW Std Deviation (36.4-46.3) fL RDW Coeff of Nessa (11.5-14.5) % Plt Count (130-400) K/uL MPV (9.4-12.4) fL Immature Gran % (Auto) % Neut % (Auto) % Lymph % (Auto) % [place] % (Auto) % Eos % (Auto) % Baso % (Auto) % Neut # (Auto) (1.4-6.5) K/uL Lymph # (Auto) (1.2-3.4) K/uL [place] # (Auto) (0.24-0.82) K/uL Eos # (Auto) (0-0.50) K/uL Baso # (Auto) (0-0.2) K/uL Immature Gran # (Auto) (0.00-0.02) K/uL PT (9.0-12.0) Seconds INR (0.9-1.1) APTT (21.0-31.0) Seconds PTT Ratio VBG pH (7.36-7.41) VBG pCO2 (38-50) mmHg VBG pO2 mmHg VBG HCO3 mmol/L VBG O2 Saturation % VBG Base Excess mEq/L Sodium (136-145) mmol/L Potassium (3.5-5.1) mmol/L Chloride (98-107) mmol/L Carbon Dioxide (21-32) mmol/L Anion Gap (3-11) BUN (6-23) mg/dl Creatinine (0.6-1.4) mg/dl Est Cr Clr Drug Dosing Est GFR ( Amer) ml/min Est GFR (Non-Af Amer) ml/min BUN/Creatinine Ratio (10-20) Glucose (70-99(Fasting)) mg/dl POC Glucose 123 H (70-99) mg/dl Estimat Average Glucose mg/dl Hemoglobin A1c (4.5-5.6) % Calcium (8.5-10.1) mg/dl Magnesium (1.7-2.4) mg/dl Total Bilirubin (0.2-1.0) mg/dl AST (13-39) U/L ALT (7-52) U/L Alkaline Phosphatase (34-104) U/L Troponin I High Sens 673.9 H* (0-20) pg/ml Total Protein (6.0-8.3) gm/dl Albumin (3.4-5.0) gm/dl Globulin (2.5-4.0) gm/dl Albumin/Globulin Ratio (0.9-2) Triglycerides (0-150) mg/dl Cholesterol (0-200) mg/dl LDL Cholesterol, Calc mg/dl VLDL Cholesterol, Calc (0-30) mg/dl HDL Cholesterol mg/dl Cholesterol/HDL Ratio (0-5) Nasal Screen MRSA (PCR) Negative (Negative) SARS-CoV-2, RNA, NAAT (NEGATIVE) 11/20/21 11/20/21 11/20/21 Range/Units 20:11 16:32 14:37 WBC (4.8-10.8) K/ul RBC (4.63-6.08) M/uL Hgb (14.0-18.0) g/dl Hct (40.1-51.0) % MCV (80.0-100.0) fL MCH (25.0-34.0) pg MCHC (32.0-36.0) g/dL RDW Std Deviation (36.4-46.3) fL RDW Coeff of Nessa (11.5-14.5) % Plt Count (130-400) K/uL MPV (9.4-12.4) fL Immature Gran % (Auto) % Neut % (Auto) % Lymph % (Auto) % [place] % (Auto) % Eos % (Auto) % Baso % (Auto) % Neut # (Auto) (1.4-6.5) K/uL Lymph # (Auto) (1.2-3.4) K/uL [place] # (Auto) (0.24-0.82) K/uL Eos # (Auto) (0-0.50) K/uL Baso # (Auto) (0-0.2) K/uL Immature Gran # (Auto) (0.00-0.02) K/uL PT (9.0-12.0) Seconds INR (0.9-1.1) APTT (21.0-31.0) Seconds PTT Ratio VBG pH 7.40 (7.36-7.41) VBG pCO2 51 H (38-50) mmHg VBG pO2 41 mmHg VBG HCO3 32 mmol/L VBG O2 Saturation 66.5 % VBG Base Excess 5.5 mEq/L Sodium (136-145) mmol/L Potassium (3.5-5.1) mmol/L Chloride (98-107) mmol/L Carbon Dioxide (21-32) mmol/L Anion Gap (3-11) BUN (6-23) mg/dl Creatinine (0.6-1.4) mg/dl Est Cr Clr Drug Dosing Est GFR ( Amer) ml/min Est GFR (Non-Af Amer) ml/min BUN/Creatinine Ratio (10-20) Glucose (70-99(Fasting)) mg/dl POC Glucose (70-99) mg/dl Estimat Average Glucose mg/dl Hemoglobin A1c (4.5-5.6) % Calcium (8.5-10.1) mg/dl Magnesium (1.7-2.4) mg/dl Total Bilirubin (0.2-1.0) mg/dl AST (13-39) U/L ALT (7-52) U/L Alkaline Phosphatase (34-104) U/L Troponin I High Sens 598.8 H* D (0-20) pg/ml Total Protein (6.0-8.3) gm/dl Albumin (3.4-5.0) gm/dl Globulin (2.5-4.0) gm/dl Albumin/Globulin Ratio (0.9-2) Triglycerides (0-150) mg/dl Cholesterol (0-200) mg/dl LDL Cholesterol, Calc mg/dl VLDL Cholesterol, Calc (0-30) mg/dl HDL Cholesterol mg/dl Cholesterol/HDL Ratio (0-5) Nasal Screen MRSA (PCR) (Negative) SARS-CoV-2, RNA, NAAT NEGATIVE (NEGATIVE) 11/20/21 11/20/21 11/20/21 Range/Units 14:37 14:37 14:37 WBC 8.85 (4.8-10.8) K/ul RBC 2.91 L (4.63-6.08) M/uL Hgb 9.0 L (14.0-18.0) g/dl Hct 28.9 L (40.1-51.0) % MCV 99.3 (80.0-100.0) fL MCH 30.9 (25.0-34.0) pg MCHC 31.1 L (32.0-36.0) g/dL RDW Std Deviation 63.1 H (36.4-46.3) fL RDW Coeff of Nessa 17.9 H (11.5-14.5) % Plt Count 298 (130-400) K/uL MPV 9.2 L (9.4-12.4) fL Immature Gran % (Auto) 1.0 % Neut % (Auto) 60.2 % Lymph % (Auto) 18.6 % [place] % (Auto) 11.6 % Eos % (Auto) 7.7 % Baso % (Auto) 0.9 % Neut # (Auto) 5.32 (1.4-6.5) K/uL Lymph # (Auto) 1.65 (1.2-3.4) K/uL [place] # (Auto) 1.03 H (0.24-0.82) K/uL Eos # (Auto) 0.68 H (0-0.50) K/uL Baso # (Auto) 0.08 (0-0.2) K/uL Immature Gran # (Auto) 0.09 H (0.00-0.02) K/uL PT 12.0 (9.0-12.0) Seconds INR 1.1 (0.9-1.1) APTT 27.1 (21.0-31.0) Seconds PTT Ratio 1.0 VBG pH (7.36-7.41) VBG pCO2 (38-50) mmHg VBG pO2 mmHg VBG HCO3 mmol/L VBG O2 Saturation % VBG Base Excess mEq/L Sodium 133 L (136-145) mmol/L Potassium 4.8 (3.5-5.1) mmol/L Chloride 94 L (98-107) mmol/L Carbon Dioxide 30 (21-32) mmol/L Anion Gap 9 (3-11) BUN 37 H (6-23) mg/dl Creatinine 7.70 H* (0.6-1.4) mg/dl Est Cr Clr Drug Dosing Not Reportable Est GFR ( Amer) 8.7 ml/min Est GFR (Non-Af Amer) 7.5 ml/min BUN/Creatinine Ratio 4.8 L (10-20) Glucose 152 H (70-99(Fasting)) mg/dl POC Glucose (70-99) mg/dl Estimat Average Glucose mg/dl Hemoglobin A1c (4.5-5.6) % Calcium 8.8 (8.5-10.1) mg/dl Magnesium (1.7-2.4) mg/dl Total Bilirubin 0.5 (0.2-1.0) mg/dl AST 10 L (13-39) U/L ALT 8 (7-52) U/L Alkaline Phosphatase 85 (34-104) U/L Troponin I High Sens 796.3 H* D (0-20) pg/ml Total Protein 7.2 (6.0-8.3) gm/dl Albumin 3.6 (3.4-5.0) gm/dl Globulin 3.6 (2.5-4.0) gm/dl Albumin/Globulin Ratio 1.0 (0.9-2) Triglycerides (0-150) mg/dl Cholesterol (0-200) mg/dl LDL Cholesterol, Calc mg/dl VLDL Cholesterol, Calc (0-30) mg/dl HDL Cholesterol mg/dl Cholesterol/HDL Ratio (0-5) Nasal Screen MRSA (PCR) (Negative) SARS-CoV-2, RNA, NAAT (NEGATIVE) Medications Administered Current Inpatient Medications Acetaminophen (Acetaminophen 325 Mg Tab) 650 mg PO Q4H PRN PRN Reason: Pain or Fever Stop: 12/20/21 21:07 Last Admin: 11/21/21 06:13 Dose: 650 mg Amoxicillin/Clavulanate Potassium (Amoxicillin/Clavulanate 500 Mg Tab) 1 tab PO BID GHAZALA Stop: 11/24/21 21:07 Last Admin: 11/20/21 21:53 Dose: 1 tab Aspirin (Aspirin 81 Mg Ectab) 81 mg PO DAILY [facility]AL[facility] Stop: 12/21/21 08:59 Last Admin: 11/21/21 08:17 Dose: 81 mg Atorvastatin Calcium (Atorvastatin 40 Mg Tab) 40 mg PO HS GHAZALA Stop: 12/20/21 21:07 Last Admin: 11/20/21 21:54 Dose: 40 mg Dextrose (Dextrose 50% 50 Ml Syringe) 25 - 50 ml IV UD PRN; Protocol PRN Reason: Hypoglycemia Protocol Stop: 12/20/21 21:07 Glucagon (Glucagon For Inj 1 Mg Vial) 1 mg SQ UD PRN; Protocol PRN Reason: Hypoglycemia Protocol Stop: 12/20/21 21:07 Glucose (Glucose 40% Gel 15 Gm Tube) 15 - 30 gm PO UD PRN; Protocol PRN Reason: Hypoglycemia Protocol Stop: 12/20/21 21:07 Glucose (Glucose 10 Tab/Tube) 4 - 8 tab PO UD PRN; Protocol PRN Reason: Hypoglycemia Treatment Stop: 12/20/21 21:07 Heparin Sodium/Dextrose (Heparin Sodium/Dextrose) 25,000 units in 500 mls @ 0 mls/hr IV .Q0M GHAZALA; Protocol Stop: 12/20/21 19:29 Last Titration: 11/21/21 07:00 Dose: 1,650 units/hr, 33 mls/hr Insulin Aspart (Insulin Aspart Per Unit) 0 units SC ACHS GHAZALA Stop: 12/20/21 21:07 Last Admin: 11/21/21 08:20 Dose: Not Given Insulin Human NPH (Insulin Human Nph) 0 - 15 units SC Q12 GHAZALA Stop: 12/20/21 21:07 Last Admin: 11/21/21 08:20 Dose: Not Given Metoprolol Succinate (Metoprolol Succ 50mg Ext Rel Tab) 100 mg PO DAILY [facility] Stop: 12/21/21 08:59 Last Admin: 11/21/21 08:17 Dose: 100 mg Miscellaneous (Carbohydrates For Hypoglycemia ) 15 - 30 gm PO UD PRN PRN Reason: Hypoglycemia Protocol Stop: 12/20/21 21:07 Ondansetron HCl (Ondansetron Inj 2 Mg/Ml 2 Ml Vial) 4 mg IV Q6H PRN PRN Reason: Nausea Stop: 12/20/21 21:07 Oxycodone HCl (Oxycodone Hcl Ir 5 Mg Tab (Immediate Release)) 5 mg PO Q8H PRN PRN Reason: pain Stop: 12/04/21 21:07 Last Admin: 11/21/21 00:11 Dose: 5 mg Pantoprazole Sodium (Pantoprazole 40 Mg Tab) 40 mg PO QAM [facility] Stop: 12/21/21 08:59 Last Admin: 11/21/21 08:17 Dose: 40 mg Polyethylene Glycol (Polyethylene (Miralax) 17 Gm Pack) 17 gm PO DAILY PRN PRN Reason: Constipation Stop: 12/20/21 21:07
--- NOTE | 2021-11-21 09:19 | Cardiology Consultation ---
Date of Consultation November 21, 2021 Assessment & Plan (1) Elevated troponin: (2) Chest pain: (3) SOB (shortness of breath): (4) Hyperkalemia: (5) Pleural effusion: (6) Hemothorax, traumatic: (7) ESRD (end stage renal disease) on dialysis: (8) DM I (diabetes mellitus, type I): (9) HFrEF (heart failure with reduced ejection fraction): (10) Carotid artery stenosis: (11) Anemia: (12) Coronary artery disease: Plan Repeat echocardiogram this admission shows no change compared to previous so I believe the most prudent course of action at this point from a cardiac standpoint would be for him to undergo cardiac catheterization to rule out ischemia as a possible cause. He is not symptomatic at rest currently so I would recommend he undergo scheduled hemodialysis today and then will proceed with cardiac catheterization on 11/22/2021. The patient is in agreement with this plan. N.p.o. after midnight. Nephrology is aware in case additional hemodialysis treatment necessary after catheterization History of Present Illness Attending Physician: Dennis Arteaga MD History of Present Illness It was my pleasure to see Mr. Gerard in cardiac consultation today November 21, 2021. He is a very pleasant yet medically complex 46-year-old gentleman who routinely follows with Dr. Beltran and Arsenio Ramsay of our cardiology practice. He presented to [facility] on 11/20/2021 with complaints of left- sided chest discomfort. He does have recent left-sided multiple rib fractures after mechanical fall. He states that the discomfort he started experiencing on the day of presentation was more of a fullness sensation similar to that of when he had significant pleural effusions in the past. Upon presentation a CTA of the chest showed a small left pleural effusion/hemothorax unchanged compared to previous study along with a trace left pneumothorax improved compared to previous. EKG showed normal sinus rhythm with left anterior fascicular block and inverted T waves laterally, unchanged compared to previous. High- sensitivity troponin was drawn but cannot be interpreted given his end-stage renal disease. Currently, he states he is feeling better since presentation but still with slight chest heaviness. He is scheduled to undergo dialysis today. Of note, He has been following closely with us as an outpatient and being evaluated for recent significant drop of LV systolic function. PROBLEM LIST: 1.ASCVD. 1.Status post PCI of the LAD with a Xience 2.5mm x 12 mm MIRTA. ~ 12 years ago. 2.Cardiac catheterization in September 2018 due to abnormal nuclear stress with moderate nonobstructive coronary artery disease including a 40% mid LAD stenosis, 50% mid circumflex stenosis, and luminal irregularities in the R CA. 2.Longstanding labile hypertension 3.Dyslipidemia with an optimal LDL goal of < 70 mg/dL 4.Pericardial effusion, asymptomatic 5.Peripheral vascular disease, [place] [facility] 6.End-stage renal disease, on in-home hemodialysis under the direction of Dr. 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 8. Newly discovered severe cardiomyopathy 9. Multiple left-sided broken ribs status post mechanical fall Allergies Allergy/AdvReac Type Severity Reaction Status Date / Time benzonatate Allergy Unknown told not Verified 11/01/21 16:59 to take ibuprofen Allergy Unknown told not Verified 11/01/21 16:59 to take baclofen AdvReac Severe sedation/co Verified 11/01/21 16:59 nfusion oxycodone AdvReac Intermediate Confusion Verified 11/01/21 16:59 FRED Inhibitors AdvReac Unknown Unknown Verified 11/01/21 16:59 Home Medications Medication Instructions Recorded Confirmed Type atorvastatin 40 mg tablet 40 mg PO HS 02/13/18 11/20/21 History clopidogrel 75 mg tablet 75 mg PO DAILY 02/13/18 11/20/21 History nitroglycerin 0.4 mg sublingual 0.4 mg sublingual DIRECTED PRN 02/13/18 11/20/21 History tablet (Nitrostat) Chest Pain omeprazole 20 mg capsule,delayed 40 mg PO QAM 02/13/18 11/20/21 History release aspirin 81 mg tablet,delayed 81 mg PO DAILY 06/10/20 11/20/21 History release hydralazine 100 mg tablet 100 mg PO BID PRN .. 10/14/20 11/20/21 History Epogen Inj 0 mg INJ DIRECTED 08/23/21 11/20/21 History Novolin 70-30 FlexPen U-100 15 units SC TID 10/21/21 11/20/21 History oxycodone 5 mg tablet 5 mg PO Q8H PRN pain #10 tabs 10/29/21 11/20/21 Rx metoprolol succinate 100 mg 100 mg PO DAILY 11/11/21 11/20/21 History tablet,extended release 24 hr amoxicillin 875 mg-potassium 1 tab PO BID 7 days #14 tabs 11/16/21 11/20/21 Rx clavulanate 125 mg tablet Patient History Medical History Acute left lumbar radiculopathy Anemia Bilateral carotid artery stenosis Monitored with Carotid Doppler q6 months. 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 Carotid artery stenosis Coronary artery disease Diabetes mellitus, insulin-dependent (IDDM or type I) DM I (diabetes mellitus, type I) Dyslipidemia ESRD (end stage renal disease) on dialysis GERD (gastroesophageal reflux disease) Gout Hemothorax, traumatic Hypertension Hypertensive urgency Labile hypertension Orthostatic hypotension Presence of artificial eye LEFT Ulcer of finger R third digit Weakness Surgical History History of discectomy LUMBAR History of eye surgery MULTIPLE EYE SURGERIES S/T COMPLICATIONS OF DIABETES INCLUDING DETACHED RETINA, DSEAK PROCEDURES, AND ENUCLEATION OF LEFT EYE Status post cardiac catheterization Status post coronary artery stent placement 2009, NO HX OF [place] [facility]. Family History Other Cancer Diabetes Gallbladder disease Heart disease Hypertension Social History Smoking Status: Never smoker Tobacco Type: Smokeless Tobacco (Dip or Chew) Second Hand Exposure: No; Do You Dip or Chew Tobacco: Yes; Hx Alcohol Use: No Hx Substance Use: No Preferred Language: Arabic Communication Ability: Effective Visual Impairment: Blindness Aerial Tram Operator Required: No Beliefs That Will Affect Care: None marital status: Current Living Situation: Spouse current occupational status: disabled How many Children do You have: 1 Feels Safe at Home: Yes Safety Concerns: Feels Safe At This Time Assistive Devices: None Assistive Devices Comment: artificial left eye Review of Systems Review of Systems: All systems reviewed & are unremarkable except as noted in HPI & below Physical Exam Physical Exam: General: Awake, alert and oriented x 3. No acute distress. HEENT: Normocephalic, atraumatic. Pupils equal, round and reactive to light and accommodation. Extraocular muscles are intact. Anicteric sclera. Moist mucous membranes. Neck: No JVD. No bruit. Cardiovascular: Regular. Positive S-4. Normal S-1 and S-2. No S-3. 3/6 holosystolic ejection murmur, left sternal border, mid-clavicular line with radiation to the axilla. No rubs. Pulmonary: Clear to auscultation bilaterally. No rales, rhonchi, or wheezing. Abdomen: Bowel sounds x 4, soft. No rebound, guarding or tenderness. No organomegaly. Extremities: No clubbing, cyanosis or edema. +2 pedal pulses bilaterally. Skin: Warm and dry. Results & Data ([facility]) Vital Signs (Past 12 Hours) Vital Signs Temp Pulse Pulse Resp BP BP Pulse Ox 11/21/21 08:10 36.6 C 95 H 20 139/77 96 11/21/21 03:58 36.4 C L 97 H 18 133/60 98 11/20/21 22:20 97 H 11/20/21 23:15 11/20/21 23:15 36.5 C 98 H 18 94/60 L 100 11/20/21 22:07 97 H 21 132/78 98 11/20/21 21:57 96 H 17 133/80 11/20/21 21:57 11/20/21 21:33 98 H 19 115/83 97 Pulse Ox O2 Del Method O2 Del Method 11/21/21 08:10 Room Air 11/21/21 03:58 Room Air 11/20/21 22:20 11/20/21 23:15 Room Air 11/20/21 23:15 Room Air 11/20/21 22:07 Room Air 11/20/21 21:57 11/20/21 21:57 95 Room Air 11/20/21 21:33 Room Air Diagnostic Findings nuclear stress testing as part of a preoperative evaluation candidacy of renal transplant April,, with normal perfusion noted that time, LVEF 59%. Summary of echocardiogram report 08/09/2021, [facility]: LVEF Flattened septum consisten with RV pressure/vl overload, akinesis of the anterior.anteroseptal aguilar, moderate global hypokinesis. Reduced RV systolic function, free RV wall hypokinesis with preserved apical all motion, grade 1 diastlic dysfunction, mild aortic sclerosis, no stenosis, mild to moderate MR, mild TR, pulmonary HTN 42 mm Hg. Previous echocardiogram dating back to December,, included the LVEF of 53% as calculated by the 3D dimensional volumes. Since hospital stay, follow-up echocardiogram performed as an outpatient 08/22/2021 revealed severe global left ventricular hypokinesis, ejection fraction 21%. A small loculated right lateral, left lateral posterior pericardial effusion noted. (1) Anemia Anemia type: unspecified type Qualified Code(s): D64.9 - Anemia, unspecified
[2021-11-21 09:45] LABS: Partial Thromboplastin Ratio 1.6; Partial Thromboplastin Time 43.6 Seconds (21.0-31.0)
[2021-11-21] MEDS: AMOXICILLIN/CLAVULANATE 500 MG TAB PO SCH ×2 (10:12→20:10)
--- NOTE | 2021-11-21 11:32 | Nephrology Consultation ---
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 PMH includes diabetes type 1, ESRD on home hemodialysis 4-5 times a week, chronic systolic HF recently worsened to EF 20-25%, hypertension, CAD w/ MIRTA approx 2009, NAFLD, peripheral vascular disease. Also w/ recurrent syncope, causing traumatic L rib fractures and L hemothorax. one syncopal episode occurred in hospital 10/24 attributed to sustained polymorphic ventricular tachycardia from hyperkalemia and prolonged QT in the setting of structural heart disease. He was admitted here 10/21 to 10/29/2021 after he fell in the shower > w/ L rib fractures 9 through 12 posteriorly, 10 through 11 laterally and a left articular process fracture L4 and L5. These were complicated by 1.6L hemothorax and a large pleural effusion needing a chest tube.He also had during that stay an episode of sustained polymorphic V. tach as above. he came to ER for 2 visits since hospital d/c, once for syncope and other for cough/uncontrolled pain; then readmitted here w/ recurrent hemothorax 11/11-11/16, for which another chest tube was needed. Recurrent issues w/ hyperkalemia during that stay. His plavix was held at hospital discharge. He came to ER w/ sx above, was started on heparin gtt. Cardiology evaluated the patient and he is for cardiac cath in am. TTE was repeated this am and appears basically similar to prior one 10/25. Pt states his breathing is " labored;" and that he has some chest pain lateral L. ongoing cough, orthopnea though both improving. no pleuritic pain. no n/v, no malaise, no worsening edema, no further syncopal episodes. Minimal urine output at baseline His last dialysis was on Sunday and was uneventful. Allergies Allergy/AdvReac Type Severity Reaction Status Date / Time benzonatate Allergy Unknown told not Verified 11/01/21 16:59 to take ibuprofen Allergy Unknown told not Verified 11/01/21 16:59 to take baclofen AdvReac Severe sedation/co Verified 11/01/21 16:59 nfusion oxycodone AdvReac Intermediate Confusion Verified 11/01/21 16:59 FRED Inhibitors AdvReac Unknown Unknown Verified 11/01/21 16:59 Home Medications Medication Instructions Recorded Confirmed Type atorvastatin 40 mg tablet 40 mg PO HS 02/13/18 11/20/21 History clopidogrel 75 mg tablet 75 mg PO DAILY 02/13/18 11/20/21 History nitroglycerin 0.4 mg sublingual 0.4 mg sublingual DIRECTED PRN 02/13/18 11/20/21 History tablet (Nitrostat) Chest Pain omeprazole 20 mg capsule,delayed 40 mg PO QAM 02/13/18 11/20/21 History release aspirin 81 mg tablet,delayed 81 mg PO DAILY 06/10/20 11/20/21 History release hydralazine 100 mg tablet 100 mg PO BID PRN .. 10/14/20 11/20/21 History Epogen Inj 0 mg INJ DIRECTED 08/23/21 11/20/21 History Novolin 70-30 FlexPen U-100 15 units SC TID 10/21/21 11/20/21 History oxycodone 5 mg tablet 5 mg PO Q8H PRN pain #10 tabs 10/29/21 11/20/21 Rx metoprolol succinate 100 mg 100 mg PO DAILY 11/11/21 11/20/21 History tablet,extended release 24 hr amoxicillin 875 mg-potassium 1 tab PO BID 7 days #14 tabs 11/16/21 11/20/21 Rx clavulanate 125 mg tablet Patient History Medical History (Updated 11/21/21 @ 14:34 by Dahiana Rojas MD, PhD) Acute left lumbar radiculopathy Anemia Bilateral carotid artery stenosis Monitored with Carotid Doppler q6 months. 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 Carotid artery stenosis Chronic systolic (congestive) heart failure Coronary artery disease Diabetes mellitus, insulin-dependent (IDDM or type I) DM I (diabetes mellitus, type I) Dyslipidemia ESRD (end stage renal disease) on dialysis GERD (gastroesophageal reflux disease) Gout Hemothorax, traumatic Hypertension Hypertensive urgency Labile hypertension Orthostatic hypotension Presence of artificial eye LEFT Ulcer of finger R third digit Weakness Surgical History History of discectomy LUMBAR History of eye surgery MULTIPLE EYE SURGERIES S/T COMPLICATIONS OF DIABETES INCLUDING DETACHED RETINA, DSEAK PROCEDURES, AND ENUCLEATION OF LEFT EYE Status post cardiac catheterization Status post coronary artery stent placement 2009, NO HX OF [place] [facility]. Family History Other Cancer Diabetes Gallbladder disease Heart disease Hypertension Social History Smoking Status: Never smoker Tobacco Type: Smokeless Tobacco (Dip or Chew) Second Hand Exposure: No; Do You Dip or Chew Tobacco: Yes; Hx Alcohol Use: No Hx Substance Use: No Preferred Language: Turkish Communication Ability: Effective Visual Impairment: Blindness Civil Preparedness Officer Required: No Beliefs That Will Affect Care: None marital status: Current Living Situation: Spouse current occupational status: disabled How many Children do You have: 1 Feels Safe at Home: Yes Safety Concerns: Feels Safe At This Time Assistive Devices: None Assistive Devices Comment: artificial left eye Review of Systems Review of Systems: All systems reviewed & are unremarkable except as noted in HPI & below Physical Exam Constitutional: well developed, well nourished and cooperative; no acute distress Eyes: EOM intact bilaterally ENMT: Ears: no external ear abnormality Nose: no external nose abnormality Mouth: + dry oral mucous membranes Neck: no nuchal rigidity Respiratory: normal respiratory effort Auscultation: + diminished lung sounds Cardiovascular: Rate/Rhythm: regular rate and regular rhythm Heart Sounds: + murmur Gastrointestinal (Abdomen): Inspection/Auscultation: normal bowel sounds Percussion/Palpation: abdomen soft; abdomen nontender Musculoskeletal: Extremities: strength 5/5 throughout Skin: no rashes, warm and dry Neurologic: hoover, fluent speech, no tremor Psychiatric: Orientation: oriented x 3 Results & Data ([facility]) Vital Signs (Past 12 Hours) Vital Signs Temp Pulse Resp BP Pulse Ox O2 Del Method 11/21/21 08:10 36.6 C 95 H 20 139/77 96 Room Air 11/21/21 03:58 36.4 C L 97 H 18 133/60 98 Room Air Laboratory Results 11/21/21 03:45 11/21/21 06:00 0445 BMP reviewed Diagnostic Findings CTA this aM > small L hemothorax, unchanged from 7.18 study; no PE; multiple L rib frxs
[2021-11-21] MEDS ORDERED: SODIUM CHLORIDE 0.9% 1000ML 1,000 ML IV PRN (11:56)
[2021-11-21] MEDS ORDERED: EPOETIN ALFA 20,000 UNITS/ML VIAL IV ONE (11:56)
[2021-11-21] MEDS ORDERED: MoRPHine SULFATE 2 MG/ML CARP IV STA (13:18)
--- NOTE | 2021-11-21 14:14 | Electrocardiogram Report ---
Test Reason : Blood Pressure : / mmHG Vent. Rate : 078 BPM Atrial Rate : 078 BPM P-R Int : 186 ms QRS Dur : 100 ms QT Int : 404 ms P-R-T Axes : 025 -52 112 degrees QTc Int : 460 ms Normal sinus rhythm Left axis deviation Abnormal ECG When compared with ECG of 11-NOV-2021 08:24, No significant change was found Confirmed by Hardeep Dang ([id number]) on 11/21/2021 2:14:05 PM Referred By: REFERRED SELF Confirmed By:Hardeep Dang
--- NOTE | 2021-11-21 14:17 | Electrocardiogram Report ---
Test Reason : Blood Pressure : / mmHG Vent. Rate : 101 BPM Atrial Rate : 101 BPM P-R Int : 188 ms QRS Dur : 112 ms QT Int : 376 ms P-R-T Axes : 027 -49 113 degrees QTc Int : 487 ms Sinus tachycardia Left axis deviation Abnormal ECG When compared with ECG of 20-NOV-2021 14:31, (unconfirmed) No significant change was found Confirmed by Hardeep Dang ([id number]) on 11/21/2021 2:16:39 PM Referred By: REFERRED SELF Confirmed By:Hardeep Dang
--- NOTE | 2021-11-21 14:44 | Electrocardiogram Report ---
Test Reason : Blood Pressure : / mmHG Vent. Rate : 096 BPM Atrial Rate : 096 BPM P-R Int : 202 ms QRS Dur : 118 ms QT Int : 398 ms P-R-T Axes : 030 -55 106 degrees QTc Int : 502 ms Normal sinus rhythm Left axis deviation Non-specific intra-ventricular conduction delay Prolonged QT Abnormal ECG When compared with ECG of 20-NOV-2021 15:36, (unconfirmed) No significant change was found Confirmed by Hardeep Dang ([id number]) on 11/21/2021 2:44:18 PM Referred By: REFERRED SELF Confirmed By:Hardeep Dang
[2021-11-21 14:49] LABS: Partial Thromboplastin Ratio 2.2
[2021-11-21 15:21] LABS: Partial Thromboplastin Time 61.1 Seconds (21.0-31.0)
[2021-11-21] MEDS: HEPARIN SODIUM/DEXTROSE 25,000 UNITS/500 ML BAG IV SCH ×2 (17:40→19:50)
[2021-11-21] MEDS ORDERED: Heparin IV Adult Wt-Based Standard *NO* Bolus Protocol IV ONE (19:21)
[2021-11-21] MEDS: ATORVASTATIN 40 MG TAB PO SCH (20:10)
[2021-11-21 23:11] LABS: Partial Thromboplastin Ratio 2.2
[2021-11-21 23:14] LABS: Partial Thromboplastin Time 61.1 Seconds (21.0-31.0)
[2021-11-22] MEDS: ACETAMINOPHEN 325 MG TAB PO PRN (00:09)
[2021-11-22] MEDS: oxyCODONE HCL IR 5 MG TAB (IMMEDIATE RELEASE) PO PRN (00:10)
[2021-11-22] MEDS ORDERED: MoRPHine SULFATE 4 MG/ML 1 ML CARP\\VIAL IV PRN (01:43)
[2021-11-22] MEDS ORDERED: LORazepam 0.5 MG TAB PO STA ×2 (02:03→06:31)
[2021-11-22 06:09] LABS: Basophils # (auto) 0.08 K/uL (0-0.2); Basophils % (auto) 1.3 %; Eosinophils # (auto) 0.46 K/uL (0-0.50); Eosinophils % (auto) 7.4 %; Hematocrit (blood only) 26.7 % (40.1-51.0); Hemoglobin 8.5 g/dl (14.0-18.0); Immature Granulocytes # (auto) 0.04 K/uL (0.00-0.02); Immature Granulocytes % (auto) 0.6 %; Lymphocytes # (auto) 1.52 K/uL (1.2-3.4); Lymphocytes % (auto) 24.4 %; Mean Corpuscular Hemoglobin 30.9 pg (25.0-34.0); Mean Corpuscular Hgb Conc 31.8 g/dL (32.0-36.0); Mean Corpuscular Volume 97.1 fL (80.0-100.0); Mean Platelet Volume 9.3 fL (9.4-12.4); Monocytes # (auto) 0.91 K/uL (0.24-0.82); Monocytes % (auto) 14.6 %; Neutrophils # (auto) 3.21 K/uL (1.4-6.5); Neutrophils % (auto) 51.7 %; Platelet Count 256 K/uL (130-400); RDW Standard Deviation 62.6 fL (36.4-46.3); Red Blood Count 2.75 M/uL (4.63-6.08); White Blood Count 6.22 K/ul (4.8-10.8)
[2021-11-22] MEDS: HEPARIN SODIUM/DEXTROSE 25,000 UNITS/500 ML BAG IV SCH (06:29)
[2021-11-22 06:48] LABS: Albumin Globulin Ratio 1.1 (0.9-2); Albumin Level 3.2 gm/dl (3.4-5.0); BUN Creatinine Ratio 4.2 (10-20); Bilirubin,Total 0.4 mg/dl (0.2-1.0); Est GFR (African American) 8.9 ml/min; Est GFR (Non-African American) 7.7 ml/min; Potassium 5.2 mmol/L (3.5-5.1); Total Protein 6.2 gm/dl (6.0-8.3)
[2021-11-22 06:59] LABS: Partial Thromboplastin Time 81.4 Seconds (21.0-31.0)
[2021-11-22] MEDS ORDERED: LIDOCAINE 1% LOCAL 20 ML VIAL ONE (07:01)
[2021-11-22] MEDS: INSULIN ASPART PER UNIT SC SCH ×3 (07:59→17:19)
[2021-11-22] MEDS: METOPROLOL SUCC 50MG EXT REL TAB PO SCH (08:21)
[2021-11-22] MEDS: PANTOprazole 40 MG TAB PO SCH (08:21)
[2021-11-22] MEDS: ASPIRIN 81 MG ECTAB PO SCH (08:21)
[2021-11-22] MEDS: AMOXICILLIN/CLAVULANATE 500 MG TAB PO SCH (08:21)
[2021-11-22] MEDS: INSULIN HUMAN NPH SC SCH (08:22)
[2021-11-22] MEDS ORDERED: HEPARIN (PORCINE) 1000 UNIT/ML 10 ML (CATH LAB USE ONLY) ONE (08:25)
[2021-11-22] MEDS ORDERED: niCARdipine HCL INJ 2.5 MG/ML 10 ML AMP ONE (08:25)
[2021-11-22] MEDS ORDERED: MIDAZOLAM HCL 1 MG/ML 2ML VIAL ONE (08:25)
[2021-11-22] MEDS ORDERED: NITROGLYCERIN/D5W 100MCG/ML 20ML SYR ONE (08:26)
--- NOTE | 2021-11-22 09:04 | Pre Anesthesia Assessment ---
Date of Service November 22, 2021 Pre Sedation Assessment Vital Signs Temp Pulse Pulse Resp BP BP Pulse Ox 11/22/21 07:47 36.9 C 72 18 135/62 94 11/22/21 07:54 72 11/22/21 03:32 36.7 C 69 18 142/74 H 97 11/22/21 00:18 36.6 C 73 18 118/44 L 97 11/21/21 22:20 72 11/21/21 21:08 11/21/21 18:30 72 102/59 L 11/21/21 18:00 71 120/52 L 11/21/21 17:30 70 98/27 L 11/21/21 17:00 69 98/33 L 11/21/21 16:30 69 96/33 L 11/21/21 16:00 69 107/37 L 11/21/21 19:39 36.7 C 78 18 111/70 96 11/21/21 18:45 36.6 C 81 125/40 L 11/21/21 15:51 36.7 C 69 11/21/21 12:01 36.3 C L 97 H 18 121/59 L 96 O2 Del Method O2 Del Method 11/22/21 07:47 Room Air 11/22/21 07:54 11/22/21 03:32 Room Air 11/22/21 00:18 Room Air 11/21/21 22:20 11/21/21 21:08 Room Air 11/21/21 18:30 11/21/21 18:00 11/21/21 17:30 11/21/21 17:00 11/21/21 16:30 11/21/21 16:00 11/21/21 19:39 Room Air 11/21/21 18:45 11/21/21 15:51 11/21/21 12:01 Nasal Cannula Pre-Sedation Airway Assessment Smoking Status: Never smoker Hx Sleep Apnea: No Notes The planned sedation has been discussed with the patient. Informed Consent was obtained. I have identified the patient, determined the appropriateness of sedation and have assessed the patient immediately prior to the procedure. All medicine(s) and interventions are by my order.
--- NOTE | 2021-11-22 09:59 | Cardiac Catheterization ---
Date of Service November 22, 2021 Cardiac Cath Report Cardiac Cath Report Procedure: 1. Coronary angiography 2. Left heart catheterization 3. Left ventriculogram History: This is a 46-year-old male patient with type 1 diabetes and on dialysis who is having chest pain suggestive of angina. Previous history of an LAD stent. Procedure summary: After informed consent was obtained the patient was taken to the cardiac catheterization lab. Access was attempted to the right radial artery however, the sheath would not advance and the site was abandoned. A right transfemoral approach was successful in gaining access using a retrograde Salinger technique. Preformed 5 Portuguese diagnostic catheters were utilized for the coronary angiograms. A 5 Portuguese pigtail catheter was utilized for the left ventriculogram and left heart pressures. Following the procedure the arterial site was closed with a minx device. Patient was then returned to his room in stable condition. ACC data: Start time 9:12 AM End time 9:38 AM Opening aortic pressure 125/63 Closing aortic pressure 129/71 LV pressure 136/12 Sedation 2 mg intravenous Versed IV fluid minimal Contrast 94 cc Optiray Fluoroscopy time 3.1 minutes Radiation 941 mGy DAP 103.07 Rucker per centimeter squared Right dominant system AUC score 9 Coronary angiography: The coronary anatomy both left and right coronary arteries are diffusely diseased. Selective injections of the left coronary artery reveal the left main trunk to be narrow. The proximal LAD at the origin of the left main trunk is subtotaled. The remainder the LAD system is diffusely diseased and after the takeoff of the first diagonal branch has diffuse disease estimated to be 60 to 70%. There is evidence of a distal previous LAD stent which appears to be patent. The LAD does extend to the apex of the heart. The diagonal artery has no significant stenoses. I believe angiographically the ostium of the left circumflex is patent. The left circumflex artery trifurcates into 3 marginal branches. Prior to that trifurcation there is a subtotaled stenoses involving the ostium of each of the marginal branches. Selective injections into the right coronary artery revealed to be diffusely diseased. There is evidence of a possible previous coronary stent in the mid right however this could also represent a heavily calcified artery. The right coronary artery is dominant. The right coronary artery is patent. Right coronary artery gives off right to left collaterals to the LAD. Left ventriculogram: Selective injections into the left ventricle reveal severe general hypokinesis. The estimated left ventricular ejection fraction is around 30 to 35%. The mitral valve is competent. The aortic root and ascending aorta have normal morphology. Summary: Patient has severe three-vessel coronary artery disease as described above. There is evidence of an ischemic cardiomyopathy with reduced systolic function. Recommendations: There is a need for further review of the patient's coronary angiograms and consideration for possible open heart surgery and coronary artery bypass.
--- NOTE | 2021-11-22 12:37 | Electrocardiogram Report ---
Test Reason : Blood Pressure : / mmHG Vent. Rate : 070 BPM Atrial Rate : 070 BPM P-R Int : 194 ms QRS Dur : 116 ms QT Int : 442 ms P-R-T Axes : 036 -54 128 degrees QTc Int : 477 ms Normal sinus rhythm Left axis deviation Chronic Nonspecific ST and T wave abnormality Anterolateral leads Prolonged QT Abnormal ECG When compared with ECG of 21-NOV-2021 05:56, No significant change was found Confirmed by Grayson Richardson ([id number]) on 11/22/2021 12:37:39 PM Referred By: REFERRED SELF Confirmed By:Grayson Richardson
--- NOTE | 2021-11-22 14:06 | Nephrology Progress Note ---
Date of Service November 22, 2021 Assessment & Plan (1) ESRD (end stage renal disease) on dialysis: Plan: ESRD on home dialysis via [facility] -HD tomorrow -no heparin on HD -no need for HD today -aggressive epo w/ HD >> pt w/ hx of angina-like sx from hgb in 8s in past (2) Elevated troponin: Plan: -f/u cardiology recs/ CABG plans Admission and Anticipated Discharge Date Admission Date: November 20, 2021 Subjective pt signed off HD earlyly yesterday d/t back pain, need for BM; 1.5L UF; cardiac cath w/ severe 3 vessel coronary dz; needs CABG; having eval. post procedure no sob, no n/v, no worsening edema Review of Systems Review of Systems: All systems reviewed & are unremarkable except as noted in Subjective Physical Exam Constitutional: well developed, well nourished and cooperative; no acute distress Eyes: EOM intact bilaterally ENMT: Ears: no external ear abnormality Nose: no external nose abnormality Mouth: + dry oral mucous membranes Neck: no nuchal rigidity Respiratory: normal respiratory effort Auscultation: + diminished lung sounds Cardiovascular: Rate/Rhythm: regular rate and regular rhythm Heart Sounds: + murmur Gastrointestinal (Abdomen): Inspection/Auscultation: normal bowel sounds Percussion/Palpation: abdomen soft; abdomen nontender Musculoskeletal: Extremities: strength 5/5 throughout Skin: no rashes, warm and dry Neurologic: hoover, drowsy/limited speech, no tremor Psychiatric: Orientation: oriented x 3 Results & Data ([facility]) Vital Signs (Past 12 Hours) Vital Signs Temp Pulse Pulse Pulse Resp BP BP 11/22/21 13:15 79 16 148/76 H 11/22/21 12:15 79 18 163/79 H 11/22/21 11:15 78 18 153/75 H 11/22/21 11:45 79 16 153/55 H 11/22/21 11:00 36.7 C 81 18 182/81 H 11/22/21 10:45 78 18 148/57 H 11/22/21 10:30 82 18 166/70 H 11/22/21 10:15 36.8 C 81 18 116/66 11/22/21 10:00 16 141/70 H 11/22/21 09:45 16 151/64 H 11/22/21 07:47 36.9 C 72 18 135/62 11/22/21 07:54 72 11/22/21 03:32 36.7 C 69 18 142/74 H Pulse Ox O2 Del Method 11/22/21 13:15 96 Room Air 11/22/21 12:15 94 Room Air 11/22/21 11:15 95 Room Air 11/22/21 11:45 95 Room Air 11/22/21 11:00 93 Room Air 11/22/21 10:45 95 Room Air 11/22/21 10:30 96 Room Air 11/22/21 10:15 95 Room Air 11/22/21 10:00 96 Room Air 11/22/21 09:45 96 Room Air 11/22/21 07:47 94 Room Air 11/22/21 07:54 11/22/21 03:32 97 Room Air Laboratory Results 11/22/21 05:13 11/22/21 05:13
--- NOTE | 2021-11-22 16:45 | Cardiology Progress Note ---
Date of Service November 22, 2021 Assessment & Plan (1) Elevated troponin: (2) Chest pain: (3) SOB (shortness of breath): (4) Hyperkalemia: (5) Pleural effusion: (6) Hemothorax, traumatic: (7) ESRD (end stage renal disease) on dialysis: (8) DM I (diabetes mellitus, type I): (9) HFrEF (heart failure with reduced ejection fraction): (10) Carotid artery stenosis: (11) Anemia: (12) Coronary artery disease: Plan Multivessel coronary artery disease is present. Patient will require surgical evaluation for bypass surgery Currently symptom-free and wishing to go home Will arrange for outpatient CT surgery evaluation in the near future. Surgery may possibly be delayed due to his recent rib fractures but will defer to surgery. Patient and family members counseled at great length that she has a recurrent chest discomfort he should seek immediate medical attention at the nearest emergency department which may be a sign that he will require more urgent surgery. Continue beta-bibiana. Okay to DC to home. Admission and Anticipated Discharge Date Admission Date: November 20, 2021 Subjective Patient seen and examined, chart reviewed. Case discussed with Dr. Caro and results of catheterization reviewed. Currently he is seated in bed and states he feels well. No further chest discomfort. Patient states his chest discomfort resolved after first dialysis treatment and believes it was likely due to congestion. Patient anxious for discharge to home. Review of Systems Review of Systems: All systems reviewed & are unremarkable except as noted in HPI & below Physical Exam Physical Exam: General: Awake, alert and oriented x 3. No acute distress. HEENT: Normocephalic, atraumatic. Pupils equal, round and reactive to light and accommodation. Extraocular muscles are intact. Anicteric sclera. Moist mucous membranes. Neck: No JVD. No bruit. Cardiovascular: Regular. Positive S-4. Normal S-1 and S-2. No S-3. No murmurs or rubs. Pulmonary: Clear to auscultation B/L. No rales, rhonchi or wheezing Abdomen: Bowel sounds x 4, soft. No rebound, guarding or tenderness. No organomegaly. Extremities: No clubbing, cyanosis or edema. +2 pedal pulses bilaterally. Skin: Warm and dry. Results & Data ([facility]) Vital Signs (Past 12 Hours) Vital Signs Temp Pulse Pulse Pulse Resp BP BP 11/22/21 16:15 80 18 128/74 11/22/21 15:15 79 18 148/73 H 11/22/21 16:00 75 11/22/21 15:22 36.6 C 94 H 18 130/51 L 11/22/21 14:15 79 18 148/73 H 11/22/21 13:15 79 16 148/76 H 11/22/21 12:15 79 18 163/79 H 11/22/21 11:15 78 18 153/75 H 11/22/21 11:45 79 16 153/55 H 11/22/21 11:00 36.7 C 81 18 182/81 H 11/22/21 10:45 78 18 148/57 H 11/22/21 10:30 82 18 166/70 H 11/22/21 10:15 36.8 C 81 18 116/66 11/22/21 10:00 16 141/70 H 11/22/21 09:45 16 151/64 H 11/22/21 07:47 36.9 C 72 18 135/62 11/22/21 07:54 72 Pulse Ox O2 Del Method 11/22/21 16:15 95 Room Air 11/22/21 15:15 95 Room Air 11/22/21 16:00 11/22/21 15:22 96 Room Air 11/22/21 14:15 95 Room Air 11/22/21 13:15 96 Room Air 11/22/21 12:15 94 Room Air 11/22/21 11:15 95 Room Air 11/22/21 11:45 95 Room Air 11/22/21 11:00 93 Room Air 11/22/21 10:45 95 Room Air 11/22/21 10:30 96 Room Air 11/22/21 10:15 95 Room Air 11/22/21 10:00 96 Room Air 11/22/21 09:45 96 Room Air 11/22/21 07:47 94 Room Air 11/22/21 07:54 (1) Anemia Anemia type: unspecified type Qualified Code(s): D64.9 - Anemia, unspecified
== END 2021-11-22 18:45 | disposition home or self-care (01) | DRG 280 ==
LOC: ED 12:47 → EDINP 21:01 → SUATTDRO 21:01 → 2S 21:33